=== PATIENT | female | born 1950 | race Hispanic/Latino ===

== ENCOUNTER 2017-09-04 02:19 | Observation (INO) | payer OTHER ==
--- OUTSIDE RECORDS SUMMARY | 2017-09-04 02:21 | XMS REPORT | Clinical Summary ---
:1950 Author Organization [facility] Address [address] [place] [address] Care Team Providers Name Role Phone Asked, No Pcp Primary Care Provider Unavailable Allergies Active Allergy Reactions Severity Noted Date Comments Sulfamethoxazole-Trimethoprim Palpitations Low 10/28/2015 Ciprofloxacin Other (See Comments) 02/12/2016 Bleeding Codeine Itching 02/12/2016 Chest pain Morphine Sulfate Itching 09/07/2012 Current Medications Prescription Sig. Disp. Refills Start Date End Date Status cetirizine (ZyrTEC) 10 Take 10 mg by Active MG tablet mouth nightly. inFLIXimab (REMICADE) Infuse 600 mg 03/29/2013 Active 100 mg injection into a venous catheter. losartan (COZAAR) 25 Take 25 mg by Active MG tablet mouth daily. metFORMIN (GLUCOPHAGE) Take 500 mg by Active 500 MG tablet mouth 2 (two) times a day with meals. ranitidine (ZANTAC) 75 Take 75 mg by Active MG tablet mouth. zolpidem (AMBIEN) 10 Take 10 mg by Active mg tablet mouth. ALPRAZolam (XANAX) 0.5 Take 0.5 mg by 0 01/06/2016 Active MG tablet mouth every 8 (eight) hours as needed. for anxiety gabapentin (NEURONTIN) TAKE ONE 1 01/23/2016 Active 100 MG capsule CAPSULE BY MOUTH 3 TIMES A DAY STOP LYRICA hyoscyamine Take 125 mcg 5 01/20/2016 Active (ANASPAZ,LEVSIN) 0.125 by mouth 3 mg tablet (three) times a day. metoclopramide Take 10 mg by 3 01/01/2016 Active (REGLAN) 10 MG tablet mouth 4 (four) times a day. modafinil (PROVIGIL) Take 200 mg by 0 01/14/2016 Active 200 MG tablet mouth every morning. omeprazole (PriLOSEC) Take 40 mg by 3 11/06/2015 Active 40 MG capsule mouth once daily. ondansetron (ZOFRAN) 4 TAKE 1 TABLET 1 01/11/2016 Active MG tablet BY MOUTH EVERY 8 HOURS NEEDED FOR NAUSEA/VOMIT potassium chloride Take 20 mEq by 1 11/06/2015 Active (K-DUR) 20 MEQ CR mouth once tablet daily. SUMAtriptan (IMITREX) TK 1 T PO QD 3 01/23/2016 Active 100 MG tablet PRN. escitalopram (LEXAPRO) Take 40 mg by Active 20 MG tablet mouth daily. furosemide (LASIX) 40 Take 40 mg by 0 07/29/2016 Active mg tablet mouth daily. 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, lumbar region Autoimmune hepatitis Rheumatoid arthritis of multiple sites without rheumatoid factor Anxiety and depression GERD (gastroesophageal reflux disease) Encounters Date Type Specialty Care Team Description 06/01/2017 Orders Only Rheumatology Tamara Salinas MA 04/29/2017 Telephone Rheumatology Cristopher Bettencourt MD 03/24/2017 Orders Only Rheumatology Tamara Salinas MA 12/13/2016 Telephone Rheumatology Tamara Salinas MA after 09/03/2016 Family History Relation Name Status Comments Father Mother Social History Tobacco Use Types Packs/Day Years Used Date Never Smoker Smokeless Tobacco: Never Used Alcohol Use Drinks/Week oz/Week Comments No Sex Assigned at Date Recorded Not on file Last Filed Vital Signs Not on file Plan of Treatment Date Type Specialty Care Team Description 09/06/2017 Office Visit Rheumatology Cristopher Bettencourt MD [address] [facility] [address] [place] [id number] Health Maintenance Due Date Last Done Comments FOOT EXAM 11/24/1961 OPHTHALMOLOGY EXAM 11/24/1961 PAP SMEAR 11/24/1972 COLONOSCOPY 11/24/2001 MAMMOGRAM 11/24/2001 SHINGRIX VACCINE (#1) 11/24/2001 ZOSTER VACCINE 2011 PNEUMOCOCCAL POLYSACCHARIDE VACCINE AGE 65 AND OVER 11/24/2016 PNEUMOCOCCAL-13 11/24/2016 INFLUENZA VACCINE 11/23/2017 Results Not on fileafter 09/03/2016 Insurance Payer Benefit Plan / Group Subscriber ID Type Phone Address A[employer]NA MEDICARE AETNA MEDICARE HMO/O [facility] xxxxxxxx HMO Home: [address] [phone] [address]
--- OUTSIDE RECORDS SUMMARY | 2017-09-04 02:21 | XMS REPORT ---
:1950 [facility] Address [facility] [address] [place] [address] Care Team Providers Name Role Phone SIVA CAPPS Unavailable Unavailable SPRING JOSHI Unavailable Unavailable Problems This patient has no known problems. Allergies, Adverse Reactions, Alerts This patient has no known allergies or adverse reactions. Medications This patient has no known medications. Results Test Description Test Time Test Comments Text Results Atomic Results Result Comments COMPREHENSIVE METABOLIC PANEL 2017-06-10 12:54:00 Test Item Value Reference Range Comments TOTAL PROTEIN (BEAKER) (test 8.0 gm/dL 6.0-8.3 Specimen moderately koqt=806) hemolyzed ALBUMIN (BEAKER) (test 3.7 g/dL 3.5-5.0 Specimen moderately ynrq=3879) hemolyzed ALKALINE PHOSPHATASE 77 U/L 40-150 (BEAKER) (test pwao=537) BILIRUBIN TOTAL (BEAKER) 0.4 mg/dL 0.2-1.2 Specimen moderately (test ltaf=317) hemolyzed SODIUM (BEAKER) (test 130 meq/L 136-145 lykm=353) POTASSIUM (BEAKER) (test 4.2 meq/L 3.5-5.1 Specimen moderately ljub=985) hemolyzed CHLORIDE (BEAKER) (test 96 meq/L 98-107 zmdo=061) CO2 (BEAKER) (test pjco=263) 24 meq/L 22-29 BLOOD UREA NITROGEN (BEAKER) 6 mg/dL 7-21 (test bycb=766) CREATININE (BEAKER) (test 0.67 mg/dL 0.57-1.25 Specimen moderately sxuo=293) hemolyzed GLUCOSE RANDOM (BEAKER) 152 mg/dL 70-105 (test qxwl=457) CALCIUM (BEAKER) (test 9.0 mg/dL 8.4-10.2 wiea=881) AST (SGOT) (BEAKER) (test 44 U/L 5-34 Specimen moderately uvau=462) hemolyzed ALT (SGPT) (BEAKER) (test 27 U/L 6-55 Specimen moderately txdt=408) hemolyzed EGFR (BEAKER) (test 88 mL/min/1.73 sq m ESTIMATED GFR IS NOT zdqj=0747) ACCURATE CREATININE CLEARANCE IN PREDICTING GLOMERULAR FILTRATION RATE. ESTIMATED GFR IS NOT APPLICABLE FOR DIALYSIS PATIENTS. CBC W/PLT COUNT & AUTO [id number] 12:23:00 Test Item Value Reference Range Comments WHITE BLOOD CELL COUNT (BEAKER) (test mznw=936) 3.4 K/ L 3.5-10.5 RED BLOOD CELL COUNT (BEAKER) (test vjuw=892) 4.14 M/ L 3.93-5.22 HEMOGLOBIN (BEAKER) (test ylyf=831) 11.8 GM/DL 11.2-15.7 HEMATOCRIT (BEAKER) (test qegs=281) 36.8 % 34.1-44.9 MEAN CORPUSCULAR VOLUME (BEAKER) (test ehjq=027) 88.9 fL 79.4-94.8 MEAN CORPUSCULAR HEMOGLOBIN (BEAKER) (test 28.5 pg 25.6-32.2 vnvv=198) MEAN CORPUSCULAR HEMOGLOBIN CONC (BEAKER) (test 32.1 GM/DL 32.2-35.5 rroe=634) RED CELL DISTRIBUTION WIDTH (BEAKER) (test 15.5 % 11.7-14.4 dqkt=466) PLATELET COUNT (BEAKER) (test ziws=190) 303 K/CU MM 150-450 MEAN PLATELET VOLUME (BEAKER) (test nnlo=106) 10.5 fL 9.4-12.3 NUCLEATED RED BLOOD CELLS (BEAKER) (test 0 /100 WBC 0-0 crbm=574) NEUTROPHILS RELATIVE PERCENT (BEAKER) (test 59 % tnha=863) LYMPHOCYTES RELATIVE PERCENT (BEAKER) (test 22 % bjou=264) MONOCYTES RELATIVE PERCENT (BEAKER) (test 16 % jibb=794) EOSINOPHILS RELATIVE PERCENT (BEAKER) (test 2 % lnyh=362) BASOPHILS RELATIVE PERCENT (BEAKER) (test 1 % ylwy=066) NEUTROPHILS ABSOLUTE COUNT (BEAKER) (test 2.02 K/ L 1.56-6.13 rhsk=783) LYMPHOCYTES ABSOLUTE COUNT (BEAKER) (test 0.73 K/ L 1.18-3.74 zund=443) MONOCYTES ABSOLUTE COUNT (BEAKER) (test 0.53 K/ L 0.24-0.36 bcwn=090) EOSINOPHILS ABSOLUTE COUNT (BEAKER) (test 0.07 K/ L 0.04-0.36 uhoj=133) BASOPHILS ABSOLUTE COUNT (BEAKER) (test 0.04 K/ L 0.01-0.08 vrci=807) IMMATURE GRANULOCYTES-RELATIVE PERCENT (BEAKER) 0 % 0-1 (test oesz=0866) SEDIMENTATION [id number] 15:52:00 Test Item Value Reference Range Comments SEDIMENTATION RATE, ERYTHROCYTE (BEAKER) (test 48 mm/HR 0-30 mryp=935) COMPREHENSIVE METABOLIC [id number] 14:48:00 Test Item Value Reference Range Comments TOTAL PROTEIN (BEAKER) 8.3 gm/dL 6.0-8.3 (test znka=593) ALBUMIN (BEAKER) (test 4.0 g/dL 3.5-5.0 dyyu=0202) ALKALINE PHOSPHATASE 71 U/L 40-150 (BEAKER) (test uvdw=031) BILIRUBIN TOTAL (BEAKER) 0.5 mg/dL 0.2-1.2 (test izml=359) SODIUM (BEAKER) (test 133 meq/L 136-145 alzs=444) POTASSIUM (BEAKER) (test 3.4 meq/L 3.5-5.1 rstw=666) CHLORIDE (BEAKER) (test 95 meq/L 98-107 rxmr=655) CO2 (BEAKER) (test 26 meq/L 22-29 bjau=293) BLOOD UREA NITROGEN 5 mg/dL 7-21 (BEAKER) (test sdaq=236) CREATININE (BEAKER) (test 0.65 mg/dL 0.57-1.25 kizj=781) GLUCOSE RANDOM (BEAKER) 130 mg/dL 70-105 (test wtzh=946) CALCIUM (BEAKER) (test 9.5 mg/dL 8.4-10.2 yawb=266) AST (SGOT) (BEAKER) (test 31 U/L 5-34 gncg=303) ALT (SGPT) (BEAKER) (test 22 U/L 6-55 uajz=395) EGFR (BEAKER) (test 92 mL/min/1.73 sq m ESTIMATED GFR IS NOT gdyx=3277) ACCURATE CREATININE CLEARANCE IN PREDICTING GLOMERULAR FILTRATION RATE. ESTIMATED GFR IS NOT APPLICABLE FOR DIALYSIS PATIENTS. CBC W/PLT COUNT & AUTO [id number] 14:36:00 Test Item Value Reference Range Comments WHITE BLOOD CELL COUNT (BEAKER) (test fbfg=513) 6.3 K/ L 4.0-10.0 RED BLOOD CELL COUNT (BEAKER) (test guvz=610) 4.13 M/ L 4.00-5.00 HEMOGLOBIN (BEAKER) (test fikz=239) 13.4 GM/DL 12.0-15.0 HEMATOCRIT (BEAKER) (test yvfx=275) 38.5 % 36.0-45.0 MEAN CORPUSCULAR VOLUME (BEAKER) (test wihg=965) 93.4 fL 82.0-99.0 MEAN CORPUSCULAR HEMOGLOBIN (BEAKER) (test 32.4 pg 27.0-33.0 bupa=607) MEAN CORPUSCULAR HEMOGLOBIN CONC (BEAKER) (test 34.7 GM/DL 32.0-36.0 hfdi=275) RED CELL DISTRIBUTION WIDTH (BEAKER) (test 12.4 % 10.3-14.2 poja=739) PLATELET COUNT (BEAKER) (test ruec=233) 279 K/CU MM 150-430 MEAN PLATELET VOLUME (BEAKER) (test vemw=490) 7.9 fL 6.5-10.5 NUCLEATED RED BLOOD CELLS (BEAKER) (test 0 /100 WBC 0-0 nblw=378) NEUTROPHILS RELATIVE PERCENT (BEAKER) (test 53 % dokv=508) LYMPHOCYTES RELATIVE PERCENT (BEAKER) (test 25 % wpto=071) MONOCYTES RELATIVE PERCENT (BEAKER) (test 17 % acfh=833) EOSINOPHILS RELATIVE PERCENT (BEAKER) (test 4 % fjio=346) BASOPHILS RELATIVE PERCENT (BEAKER) (test 1 % qfrn=768) NEUTROPHILS ABSOLUTE COUNT (BEAKER) (test 3.36 K/ L 1.80-8.00 logc=675) LYMPHOCYTES ABSOLUTE COUNT (BEAKER) (test 1.59 K/ L 1.48-4.50 gava=859) MONOCYTES ABSOLUTE COUNT (BEAKER) (test 1.07 K/ L 0.00-1.30 gyec=948) EOSINOPHILS ABSOLUTE COUNT (BEAKER) (test 0.24 K/ L 0.00-0.50 zrwz=071) BASOPHILS ABSOLUTE COUNT (BEAKER) (test 0.04 K/ L 0.00-0.20 iqjs=229) 0.00
--- OUTSIDE RECORDS SUMMARY | 2017-09-04 02:21 | XMS REPORT | Clinical Summary ---
:1950 Author Organization [facility] Address [address] [place] [address] Phone Care Team Providers Name Role Phone Unavailable Primary Care Provider Unavailable Allergies Active Allergy Reactions Severity Noted Date Comments Sulfamethoxazole-Trimethoprim Other (See Comments) 09/07/2012 Shaking Ciprofloxacin Other (See Comments) 09/07/2012 Bleeding Codeine Other (See Comments) 09/07/2012 Chest pain Morphine Sulfate Itching 09/07/2012 Current Medications Prescription Sig. Disp. Refills Start Date End Date Status escitalopram (LEXAPRO) Take 40 mg by mouth Active 20 MG tablet daily. ARIPiprazole (ABILIFY) Take 2 mg by mouth Active 2 MG tablet daily. zolpidem (AMBIEN) 10 mg Take 10 mg by mouth Active tablet every night as needed. azaTHIOprine (IMURAN) Take 100 mg by mouth Active 50 mg tablet continuous prn. buPROPion (WELLBUTRIN) Take 100 mg by mouth Active 100 MG daily. tabletIndications: Rheumatoid arthritis cetirizine (ZYRTEC) 10 Take 10 mg by mouth Active MG tablet daily. Pt unsure of dosage ranitidine (ZANTAC) 75 Take 75 mg by mouth Active MG tablet nightly. Pt unsure of dosage sotalol AF (BETAPACE Take 80 mg by mouth 2 Active AF) 80 MG (two) times daily. tabletIndications: Rheumatoid arthritis(714.0) losartan (COZAAR) 25 MG Take 25 mg by mouth Active tablet daily. metFORMIN (GLUCOPHAGE) Take 500 mg by mouth Active 500 MG tablet 2 (two) times daily with breakfast and dinner. ALPRAZolam (XANAX) 0.5 Take 0.5 mg by mouth. 01/06/2016 Active MG tablet vortioxetine Take 5 mg by mouth Active (TRINTELLIX) 5 mg Tab daily Will increase to 10 mg after 7 days. . gabapentin (NEURONTIN) Take 100 mg by mouth Active 100 MG capsule 3 (three) times daily. Hospital, Clinic, or Ordered Dose Route Frequency Start Date End Date Status Other Facility Administered Medication inFLIXimab (REMICADE) 600 MG IV Once 03/29/2013 Active 600 mg in sodium chloride 0.9% (NS) 250 mL IVPBIndications: Rheumatoid arthritis sodium chloride 0.9% IV Once 01/17/2015 Active (NS) infusion sodium chloride 0.9% IV Once 09/19/2015 Active (NS) infusion sodium chloride 0.9% IV Once 10/17/2015 Active (NS) infusion diphenhydrAMINE 25 MG Oral Once 11/19/2016 Active (BENADRYL) capsule 25 mg acetaminophen 650 MG Oral Once 11/19/2016 Active (TYLENOL) tablet 650 mg inFLIXimab (REMICADE) 600 MG IV Once 04/01/2017 Active 600 mg in sodium chloride 0.9% (NS) EXCEL 250 mL IVPB inFLIXimab (REMICADE) 600 MG IV Once 05/13/2017 Active 600 mg in sodium chloride 0.9% (NS) EXCEL 250 mL IVPB diphenhydrAMINE 25 MG Oral Once 03/29/2013 11/19/2016 Ended (BENADRYL) capsule 25 mgIndications: Rheumatoid arthritis acetaminophen 650 MG Oral Once 03/29/2013 11/19/2016 Ended (TYLENOL) tablet 650 mgIndications: Rheumatoid arthritis sodium chloride 0.9% IV Once 09/24/2016 09/24/2016 Ended (NS) infusion diphenhydrAMINE 25 MG Oral Once 09/24/2016 09/24/2016 Ended (BENADRYL) capsule 25 mg acetaminophen 650 MG Oral Once 09/24/2016 09/24/2016 Ended (TYLENOL) tablet 650 mg ondansetron (ZOFRAN) 4 8 MG IV Once 09/24/2016 09/24/2016 Ended mg/2 mL injection 8 mg inFLIXimab (REMICADE) 600 MG IV Once 09/24/2016 09/24/2016 Ended 600 mg in sodium chloride 0.9% (NS) EXCEL 250 mL IVPB sodium chloride 0.9% IV Once 10/22/2016 10/22/2016 Ended (NS) infusion diphenhydrAMINE 25 MG Oral Once 10/22/2016 10/22/2016 Ended (BENADRYL) capsule 25 mg acetaminophen 650 MG Oral Once 10/22/2016 10/22/2016 Ended (TYLENOL) tablet 650 mg inFLIXimab (REMICADE) 600 MG IV Once 10/22/2016 10/22/2016 Ended 600 mg in sodium chloride 0.9% (NS) EXCEL 250 mL IVPB ondansetron (ZOFRAN) 4 8 MG IV Once 10/22/2016 10/22/2016 Ended mg/2 mL injection 8 mg sodium chloride 0.9% IV Once 11/19/2016 11/19/2016 Ended (NS) infusion ondansetron (ZOFRAN) 4 8 MG IV Once 11/19/2016 11/19/2016 Ended mg/2 mL injection 8 mg inFLIXimab (REMICADE) 600 MG IV Once 11/19/2016 11/19/2016 Ended 600 mg in sodium chloride 0.9% (NS) EXCEL 250 mL IVPB sodium chloride 0.9% IV Once 04/15/2017 04/15/2017 Discontinued (NS) infusion diphenhydrAMINE 25 MG Oral Once 04/15/2017 04/15/2017 Ended (BENADRYL) capsule 25 mg acetaminophen 650 MG Oral Once 04/15/2017 04/15/2017 Ended (TYLENOL) tablet 650 mg inFLIXimab (REMICADE) 600 MG IV Once 04/15/2017 04/15/2017 Ended 600 mg in sodium chloride 0.9% (NS) EXCEL 250 mL IVPB ondansetron (ZOFRAN) 4 8 MG IV Once PRN 04/15/2017 04/15/2017 Ended mg/2 mL injection 8 mg sodium chloride 0.9% IV Once 04/15/2017 04/15/2017 Ended (NS) infusion sodium chloride 0.9% IV Once 05/13/2017 05/13/2017 Ended (NS) infusion diphenhydrAMINE 25 MG Oral Once 05/13/2017 05/13/2017 Ended (BENADRYL) capsule 25 mg acetaminophen 650 MG Oral Once 05/13/2017 05/13/2017 Ended (TYLENOL) tablet 650 mg inFLIXimab (REMICADE) 600 MG IV Once 05/13/2017 05/13/2017 Ended 600 mg in sodium chloride 0.9% (NS) EXCEL 250 mL IVPB ondansetron (ZOFRAN) 4 8 MG IV Once PRN 05/13/2017 05/13/2017 Ended mg/2 mL injection 8 mg inFLIXimab (REMICADE) 600 MG IV Once 06/10/2017 06/10/2017 Ended 600 mg in sodium chloride 0.9% (NS) EXCEL 250 mL IVPB sodium chloride 0.9% IV Once 06/10/2017 06/10/2017 Ended (NS) infusion diphenhydrAMINE 25 MG Oral Once 06/10/2017 06/10/2017 Ended (BENADRYL) capsule 25 mg acetaminophen 650 MG Oral Once 06/10/2017 06/10/2017 Ended (TYLENOL) tablet 650 mg ondansetron (ZOFRAN) 4 8 MG IV Once PRN 06/10/2017 06/10/2017 Ended mg/2 mL injection 8 mg inFLIXimab (REMICADE) 600 MG IV Once 07/22/2017 07/22/2017 Ended 600 mg in sodium chloride 0.9% (NS) EXCEL 250 mL IVPB diphenhydrAMINE 25 MG Oral Once 07/22/2017 07/22/2017 Ended (BENADRYL) capsule 25 mg acetaminophen 650 MG Oral Once 07/22/2017 07/22/2017 Ended (TYLENOL) tablet 650 mg ondansetron (ZOFRAN) 4 8 MG IV Once PRN 07/22/2017 07/22/2017 Ended mg/2 mL injection 8 mg sodium chloride 0.9% IV Once 07/22/2017 07/22/2017 Ended (NS) infusion Active Problems Problem Noted Date Rheumatoid arthritis (HCC) 09/28/2012 Encounters Date Type Specialty Care Team Description 07/22/2017 Procedure visit Oncology Antonio Perez Rheumatoid arthritis MD [place] involving right shoulder Cristopher Bettencourt MD with positive rheumatoid Ivelisse Kumar RN factor (HCC) (Primary Dx) 06/10/2017 Procedure visit Oncology Antonio Perez Rheumatoid arthritis MD [place] involving right shoulder Cristopher Bettencourt MD with positive rheumatoid Ivelisse Kumar RN factor (HCC) (Primary Dx) 05/13/2017 Procedure visit Oncology Antonio Perez Arthritis (Primary Dx) MD Sg Briggs Richard A, Ivelisse Multani RN 04/15/2017 Procedure visit Oncology Antonio Perez Arthritis (Primary Dx) MD Sg Briggs Richard A, Ivelisse Multani RN 04/01/2017 Procedure visit Oncology Antonio Perez Canceled (Patient) MD Sg Briggs Richard A, MD 11/19/2016 Procedure visit Oncology Antonio Perez Rheumatoid arthritis MD [place] involving right wrist with Cristopher Bettencourt MD positive rheumatoid factor Ivelisse Kumar RN ([facility]) 10/22/2016 Procedure visit Oncology Antonio Perez Rheumatoid arthritis MD [place] involving right shoulder Cristopher Bettencourt MD with positive rheumatoid Ivelisse Kumar RN factor ([facility]) (Primary Dx) 09/24/2016 Procedure visit Oncology Antonio Perez Rheumatoid arthritis MD [place] involving right wrist with Cristopher Bettencourt MD positive rheumatoid factor Ivelisse Kumar RN ([facility]) (Primary Dx) after 09/03/2016 Social History Tobacco Use Types Packs/Day Years Used Date Never Smoker Smokeless Tobacco: Never Used Alcohol Use Drinks/Week oz/Week Comments No Sex Assigned at Date Recorded Not on file Last Filed Vital Signs Vital Sign Reading Time Taken Blood Pressure 146/72 07/22/2017 1:52 PM CDT Pulse 79 07/22/2017 1:52 PM CDT Temperature 36.9 C (98.4 F) 07/22/2017 1:52 PM CDT Respiratory Rate 20 07/22/2017 1:52 PM CDT Oxygen Saturation 100% 07/22/2017 1:52 PM CDT Inhaled Oxygen Concentration - - Weight 85.2 kg (187 lb 14.4 oz) 05/13/2017 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 Height - - Body Mass Index 30.33 05/13/2017 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 Plan of Treatment Health Maintenance Due Date Last Done Comments INFLUENZA VACCINE 01/23/2018 Results CBC with platelet count + automated diff (06/10/2017 11:21 AM) Component Value Ref Range WBC 3.4 (L) 3.5 - 10.5 K/L RBC 4.14 3.93 - 5.22 M/L Hemoglobin 11.8 11.2 - 15.7 GM/DL Hematocrit 36.8 34.1 - 44.9 % MCV 88.9 79.4 - 94.8 fL MCH 28.5 25.6 - 32.2 pg MCHC 32.1 (L) 32.2 - 35.5 GM/DL RDW 15.5 (H) 11.7 - 14.4 % Platelets 303 150 - 450 K/CU MM MPV 10.5 9.4 - 12.3 fL nRBC 0 0 - 0 /100 WBC % Neutros 59 % % Lymphs 22 % % Monos 16 % % Eos 2 % % Baso 1 % # Neutros 2.02 1.56 - 6.13 K/L # Lymphs 0.73 (L) 1.18 - 3.74 K/L # Monos 0.53 (H) 0.24 - 0.36 K/L # Eos 0.07 0.04 - 0.36 K/L # Baso 0.04 0.01 - 0.08 K/L Immature Granulocytes-Relative 0 0 - 1 % Specimen Performing Laboratory Blood [address] [address] CBC with platelet count + automated diff (06/10/2017 11:21 AM) Specimen Performing Laboratory Blood [facility] Narrative The following orders were created for panel order CBC with platelet count + automated diff. Procedure Abnormality Status --------- ------ CBC with platelet count ...[[id number]]AbnormalFinal result Please view results for these tests on the individual orders. Comprehensive metabolic panel (06/10/2017 11:21 AM) Component Value Ref Range Protein, Total 8.0Comment: Specimen moderately hemolyzed 6.0 - 8.3 gm/dL Albumin 3.7Comment: Specimen moderately hemolyzed 3.5 - 5.0 g/dL Alkaline Phosphatase 77 40 - 150 U/L Total Bilirubin 0.4Comment: Specimen moderately hemolyzed 0.2 - 1.2 mg/dL Sodium 130 (L) 136 - 145 meq/L Potassium 4.2Comment: Specimen moderately hemolyzed 3.5 - 5.1 meq/L Chloride 96 (L) 98 - 107 meq/L CO2 24 22 - 29 meq/L BUN 6 (L) 7 - 21 mg/dL Creatinine 0.67Comment: Specimen moderately hemolyzed 0.57 - 1.25 mg/dL Glucose 152 (H) 70 - 105 mg/dL Calcium 9.0 8.4 - 10.2 mg/dL AST 44 (H)Comment: Specimen moderately hemolyzed 5 - 34 U/L ALT 27Comment: Specimen moderately hemolyzed 6 - 55 U/L EGFR 88Comment: ESTIMATED GFR IS NOT ACCURATE mL/min/1.73 sq m CREATININE CLEARANCE IN PREDICTING GLOMERULAR FILTRATION RATE. ESTIMATED GFR IS NOT APPLICABLE FOR DIALYSIS PATIENTS. Specimen Performing Laboratory Blood [facility] [address] [address] after 09/03/2016
[2017-09-04] MEDS ORDERED: ACETAMINOPHEN 500 MG TAB ONE ×2 (03:00→09:15)
[2017-09-04] MEDS ORDERED: CEFTRIAXONE/SWI 1gm 1 GM/10 ML SYR ONE (03:00)
[2017-09-04] MEDS ORDERED: NA CHLORIDE 0.9% 2,000 ML ONE (03:06)
[2017-09-04 03:46] LABS: Absolute Lymphocytes (CBC) 0.3 K/uL (0.7-4.9); Absolute Monocytes 1.9 K/uL (0.1-1.3); Absolute Neutrophil 12.1 K/uL (1.8-8.0); Basophils % 0.3 % (0-1.3); Hematocrit 34.9 % (36.0-45.0); Lymphocytes % 2.4 % (15.3-44.8); MCH 29.1 pg (27.0-35.0); MCV 86.7 fL (80-100); MPV 8.7 fL (7.6-11.3); Monocytes % 13.2 % (3.3-12.3); RBC Red Blood Cell Count 4.02 M/uL (3.86-4.86)
[2017-09-04 03:49] LABS: Protime INR 1.13
[2017-09-04 04:04] LABS: Urine Blood 3+ (NEG); Urine Glucose NEGATIVE (NEG); Urine Protein 3+ (NEG)
[2017-09-04 04:06] LABS: Potassium 3.5 mEq/L (3.6-5.0)
[2017-09-04 04:10] LABS: CKMB Creatine Kinase MB 1.3 ng/ml (0.3-4.0)
[2017-09-04 04:12] LABS: Albumin 3.1 g/dL (3.2-5.5); Bilirubin Direct 0.3 mg/dL (0-0.2); Bilirubin Total 0.9 mg/dL (0.3-1.2); Protein, Total 7.5 g/dL (6.0-8.3)
[2017-09-04 04:41] LABS: Urine Bacteria 20-50 /HPF (<20)
[2017-09-04 04:42] LABS: Urine Culture Reflex Order NOT NEEDED
[2017-09-04 04:48] LABS: C-Reactive Protein 248.3 mg/L (<10.0)
--- NOTE | 2017-09-04 04:59 | EDPHYS ---
Physician Documentation [facility] Name: Linda Miramontes Age: 66 yrs Sex: Female : 1950 Arrival Date: 09/04/2017 Time: 02:21 Bed 14 Private MD: ED Physician Wilson Randall HPI: 09/04 02:49 This 66 yrs old Female presents to ER via EMS with complaints of Fever, ma2 Nausea/Vomiting. 02:49 The patient reports fever, that was measured at 101 degrees Fahrenheit. Onset: The ma2 symptoms/episode began/occurred gradually, 4 day(s) ago. Associated signs and symptoms: Pertinent positives: altered mental status,\E\ hematuria . Severity of symptoms: At their worst the symptoms were moderate severe in the emergency department the symptoms are unchanged. The patient has experienced similar episodes in the past. hematuria, dysuria, ws confused today, has been taking nitrofurantoin x 2 days, . Historical: - Allergies: 02:31 No Known Allergies; ao - Home Meds: 02:31 Amoxicillin Oral [Active]; ao - PMHx: 02:31 Hepatitis; ao - PSHx: 02:31 None; ao - Immunization history:: Adult Immunizations unknown. - Social history:: Smoking status: Patient/guardian denies using tobacco, Patient/guardian denies using alcohol, street drugs, Patient/guardian denies using The patient lives with family. - Family history:: not pertinent. ROS: 02:49 Abdomen/GI: Negative for abdominal pain, nausea, diarrhea, and constipation, ma2 MS/Extremity: Negative for injury and deformity, Skin: Negative for injury, rash, and discoloration. 02:49 Constitutional: Positive for body aches, fatigue, fever, malaise. 02:49 : Positive for urinary symptoms, hematuria. 02:49 All other systems are negative. Exam: 02:49 ENT: Nares patent. No nasal discharge, no septal abnormalities noted. Tympanic ma2 membranes are normal and external auditory canals are clear. Oropharynx with no redness, swelling, or masses, exudates, or evidence of obstruction, uvula midline. Mucous membranes moist. Neck: Trachea midline, no thyromegaly or masses palpated, and no cervical lymphadenopathy. Supple, full range of motion without nuchal rigidity, or vertebral point tenderness. No Meningismus. Chest/axilla: Normal chest wall appearance and motion. Nontender with no deformity. No lesions are appreciated. Cardiovascular: Regular rate and rhythm with a normal S1 and S2. No gallops, murmurs, or rubs. Normal PMI, no JVD. No pulse deficits. Respiratory: Lungs have equal breath sounds bilaterally, clear to auscultation and percussion. No rales, rhonchi or wheezes noted. No increased work of breathing, no retractions or nasal flaring. Abdomen/GI: Soft, non-tender, with normal bowel sounds. No distension or tympany. No guarding or rebound. No evidence of tenderness throughout. Neuro: Awake and alert, GCS 15, oriented to person, place, time, and situation. Cranial nerves II-XII grossly intact. Motor strength 5/5 in all extremities. Sensory grossly intact. Cerebellar exam normal. Normal gait. 02:49 Constitutional: The patient appears febrile, obviously ill. Vital Signs: 02:29 BP 133 / 53; Pulse 93; Resp 18; Temp 101.7(O); Pulse Ox 96% on R/A; Weight 81.65 kg ao (R); Height 5 ft. 7 in. (170.18 cm) (R); Pain 4/10; 03:30 BP 131 / 67; Pulse 79; Resp 16; Pulse Ox 96% ; bp 04:45 BP 135 / 64; Pulse 75; Resp 14; Temp 100.0; Pulse Ox 95% ; bp 06:30 BP 118 / 62; Pulse 72; Resp 16; Pulse Ox 98% ; bp 08:00 BP 121 / 67; Pulse 74; Resp 16 S; Temp 98.0(O); Pulse Ox 97% on R/A; iw 02:29 Body Mass Index 28.19 (81.65 kg, 170.18 cm) ao MDM: 02:32 Patient medically screened. ma2 02:49 Differential diagnosis: bacterial infection, bronchitis, pneumonia UTI, pyelonephritis. ma2 04:42 Data reviewed: vital signs, nurses notes, lab test result(s), dehydration hyponatremia ma2 UTI sepsis . 05:13 Sepsis 6 hour Focused Exam: Focused assessment performed: September 04, 2017 at 05:13 Heart: ma2 Regular rate/rhythm. Lungs: Capillary refill examination performed. Capillary refill noted to be brisk. Skin examination performed. Skin noted to be pink. Neuro: Patient's neurological exam has improved from previous exam. Respiratory: Respiratory exam improved from previous exam. Counseling: I had a detailed discussion with the patient and/or guardian regarding: the historical points, exam findings, and any diagnostic results supporting the discharge/admit diagnosis, the presence of at least one elevated blood pressure reading (>120/80) during this emergency department visit, the need for further work-up and treatment in the hospital. Response to treatment: the patient's symptoms have markedly improved after treatment. 06:54 Other consultation: discussed with Dr. Teixeira. 09/04 02:55 Order name: Amylase, Serum; Complete Time: 06:47 09/04 02:55 Order name: Basic Metabolic Panel; Complete Time: 06:47 09/04 02:55 Order name: Blood Culture Adult (2) 09/04 02:55 Order name: BNP; Complete Time: 04:42 09/04 02:55 Order name: C-Reactive Protein; Complete Time: 06:47 09/04 02:55 Order name: CBC with Diff; Complete Time: 04:42 09/04 02:55 Order name: Ckmb; Complete Time: 06:47 09/04 02:55 Order name: CPK; Complete Time: 06:47 09/04 02:55 Order name: Lactate; Complete Time: 04:00 09/04 02:55 Order name: LFT's; Complete Time: 06:47 09/04 02:55 Order name: Lipase; Complete Time: 06:47 09/04 02:55 Order name: Procalcitonin; Complete Time: 06:47 09/04 02:55 Order name: Protime (+inr); Complete Time: 04:00 09/04 02:55 Order name: Ptt, Activated; Complete Time: 04:00 09/04 02:55 Order name: Sed Rate; Complete Time: 04:42 09/04 02:55 Order name: Troponin (emerg Dept Use Only); Complete Time: 04:42 09/04 02:55 Order name: Accucheck; Complete Time: 03:20 09/04 02:55 Order name: Cardiac monitoring; Complete Time: 03:20 ma2 09/04 02:55 Order name: EKG - Nurse/Tech; Complete Time: 03:20 ma2 09/04 02:55 Order name: IV Saline Lock - Large Bore; Complete Time: 03:20 ma2 09/04 02:55 Order name: Labs collected and sent; Complete Time: 03:20 ma2 09/04 02:55 Order name: O2 Per Protocol; Complete Time: 03:03 ma2 09/04 03:19 Order name: Urine Culture bp 09/04 03:19 Order name: Urine Microscopic Only; Complete Time: 06:47 bp 09/04 03:43 Order name: Urine Dipstick--Ancillary (enter results); Complete Time: 04:42 rg2 09/04 08:13 Order name: Basic Metabolic Panel EDMS 09/04 08:22 Order name: CBC with Automated Diff EDMS 09/04 02:55 Order name: O2 Sat Monitoring; Complete Time: 03:03 ma2 09/04 02:55 Order name: Urine Dipstick-Ancillary (obtain specimen); Complete Time: 03:20 ma2 Administered Medications: 03:15 Drug: NS 0.9% (30 ml/kg) 30 ml/kg Route: IV; Rate: bolus; Site: left forearm; bp 06:38 Follow up: IV Status: Completed infusion bp 03:30 Drug: Tylenol 1000 mg Route: PO; bp 04:54 Follow up: Response: Temperature is decreased bp 03:36 Drug: Rocephin 1 grams Route: IV; Rate: bolus; Site: left forearm; bp 06:38 Follow up: IV Status: Completed infusion bp Point of Care Testing: Blood Glucose: 03:21 Blood Glucose: 162 mg/dL; bp Ranges: Critical Glucose Levels:Adult <50 mg/dl or >400 mg/dl <40 mg/dl or >180 mg/dl Disposition: 09/04/17 04:59 Hospitalization ordered by Kristian Torres for Inpatient Admission. Preliminary diagnosis are Severe sepsis without septic shock, Dehydration, Hypo-osmolality and hyponatremia, Urinary tract infection, site not specified. - Bed requested for Telemetry/MedSurg (Inpatient). - Status is Inpatient Admission. sg - Condition is Guarded. - Problem is new. - Symptoms have improved. UTI on Admission? No Signatures: Dispatcher [employer] EDMS Hudson Cohn RN RN sg Garcia, Cindy RN ASHWIN cg Jaleel Riley RN Ramón Warner RN Wilson Anderson MD MD ma2 Corrections: (The following items were deleted from the chart) 05:03 04:59 Hospitalization Ordered by Kristian Torres MD for Inpatient Admission. Preliminary ma2 diagnosis is Severe sepsis without septic shock. Bed requested for Telemetry/MedSurg (Inpatient). Status is Inpatient Admission. Condition is Guarded. Problem is new. Symptoms have improved. UTI on Admission? No. ma2 05:13 05:03 09/04/2017 04:59 Hospitalization Ordered by Kristian Torres MD for Inpatient cg Admission. Preliminary diagnosis is Severe sepsis without septic shock; Dehydration; Hypo-osmolality and hyponatremia; Urinary tract infection, site not specified. Bed requested for Telemetry/MedSurg (Inpatient). Status is Inpatient Admission. Condition is Guarded. Problem is new. Symptoms have improved. UTI on Admission? No. ma2 09:20 05:13 09/04/2017 04:59 Hospitalization Ordered by Kristian Torres MD for Inpatient sg Admission. Preliminary diagnosis is Severe sepsis without septic shock; Dehydration; Hypo-osmolality and hyponatremia; Urinary tract infection, site not specified. Bed requested for Telemetry/MedSurg (Inpatient). Status is Inpatient Admission. Condition is Guarded. Problem is new. Symptoms have improved. UTI on Admission? No. cg
--- NOTE | 2017-09-04 04:59 | ER ---
Nurse's Notes [facility] Name: Linda Miramontes Age: 66 yrs Sex: Female : 1950 Arrival Date: 09/04/2017 Time: 02:21 Bed 14 Private MD: Diagnosis: Severe sepsis without septic shock;Dehydration;Hypo-osmolality and hyponatremia;Urinary tract infection, site not specified Presentation: 09/04 02:26 Presenting complaint: Patient states: "I when to my dentist and was prescribed ao amoxicillin. I started vomiting after taking the amoxicillin." Patient also report fever. Transition of care: patient was not received from another setting of care. Onset of symptoms is unknown. Initial Sepsis Screen: Does the patient meet any 2 criteria? No. Patient's initial sepsis screen is negative. Does the patient have a suspected source of infection? No. Patient's initial sepsis screen is negative. Care prior to arrival: None. 02:26 Method Of Arrival: EMS: [facility] ao 02:26 Acuity: JOBY 3 ao Triage Assessment: 02:33 General: Appears in no apparent distress. uncomfortable. GI: Reports nausea, vomiting. ao Historical: - Allergies: 02:31 No Known Allergies; ao - Home Meds: 02:31 Amoxicillin Oral [Active]; ao - PMHx: 02:31 Hepatitis; ao - PSHx: 02:31 None; ao - Immunization history:: Adult Immunizations unknown. - Social history:: Smoking status: Patient/guardian denies using tobacco, Patient/guardian denies using alcohol, street drugs, Patient/guardian denies using The patient lives with family. - Family history:: not pertinent. Screenin:31 Abuse screen: Denies threats or abuse. Denies injuries from another. Nutritional ao screening: No deficits noted. Tuberculosis screening: No symptoms or risk factors identified. Fall Risk Assessment: 02:32 General: Appears in no apparent distress. uncomfortable, Behavior is cooperative, ao anxious. Pain: Complains of pain in abdomen. Neuro: Level of Consciousness is awake, alert, obeys commands, Oriented to person, place, time, situation, Appropriate for age Moves all extremities. Full function Speech is normal. Cardiovascular: Capillary refill < 3 seconds Patient's skin is warm and dry. Respiratory: Airway is patent Respiratory effort is even, unlabored, Respiratory pattern is regular, symmetrical. GI: Abdomen is obese. : No signs and/or symptoms were reported regarding the genitourinary system. EENT: No signs and/or symptoms were reported regarding the EENT system. Derm: No signs and/or symptoms reported regarding the dermatologic system. Musculoskeletal: No signs and/or symptoms reported regarding the musculoskeletal system. 03:30 Reassessment: ALL CURRENT ORDERS COMPLETED, RESULTS PENDING. PT RESTING QUIETLY, VS bp STABLE ON MONITOR. 04:55 Reassessment: EVALUATION PROCEEDING, IVF INFUSING, TEMPERATURE IMPROVED. NO S/S ACUTE bp DISTRESS AT THIS TIME. 06:00 Reassessment: ADMIT IN PROCESS, ADMIT ORDERS PENDING. VS STABLE ON MONITOR. bp Vital Signs: 02:29 BP 133 / 53; Pulse 93; Resp 18; Temp 101.7(O); Pulse Ox 96% on R/A; Weight 81.65 kg ao (R); Height 5 ft. 7 in. (170.18 cm) (R); Pain 4/10; 03:30 BP 131 / 67; Pulse 79; Resp 16; Pulse Ox 96% ; bp 04:45 BP 135 / 64; Pulse 75; Resp 14; Temp 100.0; Pulse Ox 95% ; bp 06:30 BP 118 / 62; Pulse 72; Resp 16; Pulse Ox 98% ; bp 08:00 BP 121 / 67; Pulse 74; Resp 16 S; Temp 98.0(O); Pulse Ox 97% on R/A; iw 02:29 Body Mass Index 28.19 (81.65 kg, 170.18 cm) ao ED Course: 02:21 Patient arrived in ED. ds1 02:21 Ramón Gallego, ASHWIN is Primary Nurse. bp 02:29 Triage completed. ao 02:30 Arm band placed on right wrist. Patient placed in an exam room, on a stretcher, on ao pulse oximetry, Patient notified of wait time. 02:32 Wilson Randall MD is Attending Physician. ma2 02:33 Patient has correct armband on for positive identification. Pulse ox on. NIBP on. ao 03:20 Berry cath inserted, using sterile technique, 16 Fr., by cash applications analyst, balloon inflated, to bp gravity drainage, urine specimen collected. returned rinku urine. Patient tolerated well. Inserted saline lock: 22 gauge in left forearm, using aseptic technique. Blood collected. 03:25 EKG done, by ED staff, reviewed by Wilson Randall MD. eb 04:56 Kristian Torres MD is Hospitalizing Provider. ma2 06:36 No provider procedures requiring assistance completed. Patient admitted, IV remains in bp place. 07:35 Missed attempt(s): 22 gauge in right antecubital area. by Eyad Fuentes LVN. Bleeding iw controlled, band aid applied, catheter tip intact. 07:40 Missed attempt(s): 24 gauge in left forearm. Bleeding controlled, band aid applied, iw catheter tip intact. 07:50 Inserted saline lock: 20 gauge in right EJ, using aseptic technique. Blood collected. iw IV inserted by Dr. Castillo. Administered Medications: 03:15 Drug: NS 0.9% (30 ml/kg) 30 ml/kg Route: IV; Rate: bolus; Site: left forearm; bp 06:38 Follow up: IV Status: Completed infusion bp 03:30 Drug: Tylenol 1000 mg Route: PO; bp 04:54 Follow up: Response: Temperature is decreased bp 03:36 Drug: Rocephin 1 grams Route: IV; Rate: bolus; Site: left forearm; bp 06:38 Follow up: IV Status: Completed infusion bp Point of Care Testing: Blood Glucose: 03:21 Blood Glucose: 162 mg/dL; bp Ranges: Outcome: 04:59 Decision to Hospitalize by Provider. ma2 09:10 Admitted to Med/surg accompanied by tech, via stretcher, room 213, with chart, Report em called to ASHWIN Bro 09:10 Condition: good 09:10 Instructed on the need for admit, Demonstrated understanding of instructions. 09:20 Patient left the ED. sg Signatures: Hudson Cohn RN Eyad Vance LVN SUCCESS COACH Mounika Ambriz1 Mandy Velarde RN RN iw Jaleel Riley RN RN ao Peltier, Brian, RN RN bp Alzahri, Mohammad, MD MD ma2 Berenice Martínez
[2017-09-04 07:57] LABS: Absolute Lymphocytes (CBC) 0.5 K/uL (0.7-4.9); Absolute Monocytes 1.7 K/uL (0.1-1.3); Absolute Neutrophil 10.1 K/uL (1.8-8.0); Basophils % 0.5 % (0-1.3); Hematocrit 32.7 % (36.0-45.0); Lymphocytes % 4.4 % (15.3-44.8); MCH 29.6 pg (27.0-35.0); MCV 87.3 fL (80-100); MPV 8.6 fL (7.6-11.3); Monocytes % 13.6 % (3.3-12.3); RBC Red Blood Cell Count 3.74 M/uL (3.86-4.86)
[2017-09-04 08:13] LABS: BUN Blood Urea Nitrogen 8 mg/dL (6-20); Bicarbonate 22 mEq/L (21-31); Glucose Level 127 mg/dL (65-120); Potassium 3.3 mEq/L (3.6-5.0); Sodium Level 131 mEq/L (135-145)
[2017-09-04] MEDS: ACETAMINOPHEN 500 MG TAB PO PRN ×2 (09:19→15:09)
[2017-09-04 09:40] VITALS: BMI 28.1
[2017-09-04 11:14] LABS: Urine Appearance CLOUDY; Urine Bilirubin NEGATIVE (NEG); Urine Blood 1+ (NEG); Urine Color YELLOW; Urine Glucose NEGATIVE (NEG); Urine Protein 1+ (NEG); Urine Specific Gravity 1.015 (1.005-1.030); Urine pH 6.5 (5.0-7.0)
[2017-09-04 11:25] LABS: Urine Microscopic Reflex ORDER UMIC
[2017-09-04 11:48] LABS: Urine Bacteria <20 /HPF (<20); Urine Culture Reflex Order NOT NEEDED; Urine RBC <5 /HPF (NONE SEEN)
[2017-09-04] MEDS ORDERED: INSULIN -REGULAR HUMAN 50 UNIT/0.5 ML ML SQ SCH (12:00)
--- NOTE | 2017-09-04 12:05 | P.HP ---
Certification for Inpatient Patient admitted to: Observation With expected LOS: <2 Midnights Practitioner: I am a practitioner with admitting privileges, knowledge of patient current condition, hospital course, and medical plan of care. Services: Services provided to patient in accordance with Admission requirements found in Title 42 Section 412.3 of the Code of Federal Regulations Patient History Date of Service: 09/04/17 Reason for admission: FEVER, ALTERED MENTAL STATUS History of Present Illness: MRS. LAFLEUR TOOK FOUR AMOX CAPSULES FOR DENTAL PROCEDURE AND WHEN CAME HOME HAD FEVER, CHILLS, WENT TO ER . GOT MACRODANTIN FOR UTI BUT WITHIN FEW HOURS GOT DISORIENTED AND SO BROUGHT HER TO ER. SHE HAS NO SYMPTOMS NOW. SHE IS FULLY ORIENTED. HAS NO HEADACHES, COUGH, CHEST PAIN, NAUSEA, VOMITING, DIARRHEA ETC. SHE HAD HEMATURIA FOR TWO DAYS, MILD. SHE HAS NO BACK PAIN MORE THAN HER USUAL. Allergies codeine [Codeine] Allergy (Intermediate, Verified 11/24/11 20:35) Shortness of breath sulfamethoxazole [From Bactrim] Allergy (Intermediate, Verified 11/24/11 20:35) Shortness of breath trimethoprim [From Bactrim] Allergy (Intermediate, Verified 11/24/11 20:35) Shortness of breath bactrim Allergy (Uncoded 09/25/13 12:05) Unknown No Known [place] Allergy (Uncoded 09/04/17 09:24) Unknown Home Medications: Hydrocodone/Acetaminophen [Lortab 5-500 Tablet] 1 each PO TID 11/25/11 Zolpidem Tartrate [Ambien] 12.5 mg PO BEDTIME PRN 11/25/11 Alprazolam [Xanax*] 0.5 mg PO Q8H PRN 04/13/12 Furosemide [Lasix*] 20 mg PO DAILY 04/13/12 Potassium Chloride 20 meq PO DAILY 04/13/12 Escitalopram Oxalate [Lexapro] 40 mg PO DAILY 09/04/17 Levocetirizine Dihydrochloride [Xyzal] 10 mg PO DAILY 09/04/17 Nortriptyline HCl [Pamelor] 10 mg PO DAILY 09/04/17 Omeprazole [Prilosec] 40 mg PO DAILY 09/04/17 Ondansetron HCl [Zofran] 4 mg PO TID 09/04/17 Ranitidine [Zantac] 150 mg PO DAILY 09/04/17 - Past Medical/Surgical History Has patient received pneumonia vaccine in the past: Yes Diabetic: Yes -: HTN -: rheumatoid arthritis -: migraines -: polio -: NIDDM -: autoimmune hepatitis -: diverticulosis -: spastic esophagus - Social History Smoking Status: Never smoker Alcohol use: No CD- Drugs: No Caffeine use: Yes Place of Residence: Home Review of Systems 10-point ROS is otherwise unremarkable General: Weakness, Malaise Physical Examination - Vital Signs Temperature: 98.0 F Blood Pressure: 121/67 Pulse: 74 Respirations: 16 - Physical Exam General: Alert, In no apparent distress HEENT: Atraumatic, PERRLA, Mucous membr. moist/pink, EOMI, Sclerae nonicteric Neck: Supple, 2+ carotid pulse no bruit, No LAD, Without JVD or thyroid abnormality Respiratory: Clear to auscultation bilaterally, Normal air movement Cardiovascular: Regular rate/rhythm, Normal S1 S2 Gastrointestinal: Normal bowel sounds, No tenderness Musculoskeletal: No tenderness Integumentary: No rashes Neurological: Normal gait, Normal speech, Normal strength at 5/5 x4 extr, Normal tone, Normal affect Lymphatics: No axilla or inguinal lymphadenopathy - Studies Laboratory Data (last 24 hrs) 09/04/17 03:12: PT 13.3 H, INR 1.13, APTT 33.1 09/04/17 03:12: WBC 14.4 H, Hgb 11.7 L, Hct 34.9 L, Plt Count 219 09/04/17 03:12: B-Natriuretic Peptide 310 H 09/04/17 03:12: Sodium 125 L, Potassium 3.5 L, BUN 10, Creatinine 0.67, Glucose 149 H, Total Bilirubin 0.9, AST 28, ALT 18, Alkaline Phosphatase 76, Amylase 41 , Lipase 23 Assessment and Plan - Problems (Diagnosis) (1) FUO (fever of unknown origin) Current Visit: Yes Status: Acute Plan: ONLY FOCAL FINDING I SEE HE HEMATURIA WILL START HER ON CIPRO SHE HAS CULTURES PENDING. ORDER CXR AND SONOGRAM OF ABDOMEN. SHE IS STABLE AND DOES NOT SHOW ANY FOCAL FINDINGS SUGGESTIVE OF ORIGIN OF FEVER. SHE HAS MILD HEMATURIA MICROSCOPIC AND NOT MUCH OF ESTERASE IN URINE SHE HAS ELELVATED CRP, SED RATE. SHE HAS KNOWN AUTOIMMUNE HEPATITIS AND RELATED COMPLICATIONS LIKE DJD, FATIGUE ETC. - Advance Directives Does patient have a Living Will: No Does patient have a Durable POA for Healthcare: No
[2017-09-04] MEDS ORDERED: ALPRAZOLAM 0.5 MG TABLET PO PRN (12:06)
[2017-09-04] MEDS ORDERED: ZOLPIDEM TARTRATE 10 MG TABLET PO PRN (12:06)
[2017-09-04] MEDS: CIPROFLOXACIN HCL 500 MG TAB PO SCH ×2 (12:24→20:09)
[2017-09-04 12:35] LABS: Blood Morphology Comment NOT SEEN (NOT SEEN); Platelet Estimate ADEQ; Urine White Blood Cell Casts OK
[2017-09-04] MEDS: HYDROCODONE/APAP 5/325 MG TAB PO SCH ×2 (13:40→20:09)
--- NOTE | 2017-09-04 13:52 | RAD REPORT ---
EXAM DESCRIPTION: US - Abdomen Exam Complete - 09/04/2017 1:43 pm CLINICAL HISTORY: Abdominal pain. COMPARISON: None. FINDINGS: The liver appears prominent in size and is coarse in echotexture suggesting chronic inflam mation or fatty infiltration. Small 14 x 14 mm cyst is present in the left lobe liver. No aggressive liver lesion or intrahepatic biliary dilatation. The gallbladder is surgically absent. Common bile duct is enlarged in size measuring 12 mm. Both kidneys are normal in size, shape and echotexture. No hydronephrosis, focal lesion of concern or perinephric fluid. The spleen is normal in size measuring 9 cm. The pancreas and aorta are obscured by bowel gas. IMPRESSION: Coarsened and heterogenous appearance to the liver parenchyma suggests chronic hepatic i nflammation or fatty infiltration. Cholecystectomy with mildly prominent (12 mm) common bile duct.
--- NOTE | 2017-09-04 15:46 | RAD REPORT ---
EXAM DESCRIPTION: RAD - Chest Pa And Lat (2 Views) - 09/04/2017 2:43 pm CLINICAL HISTORY: Fever COMPARISON: 04/24/2014 FINDINGS: Linear subsegmental atelectasis is present in the right lung base. The lungs are otherwise clear. The heart is normal in size. No displaced fractures. Cholecystectomy clips. IMPRESSION: Linear subsegmental atelectasis is noted in the right lung base.
[2017-09-04] MEDS: INSULIN -REGULAR HUMAN 50 UNIT/0.5 ML ML SQ SCH ×2 (16:19→20:42)
[2017-09-04] MEDS ORDERED: ONDANSETRON HCL 40 MG/20 ML VIAL IV PRN (20:42)
[2017-09-04] MEDS: ZOLPIDEM TARTRATE 10 MG TABLET PO PRN (22:08)
[2017-09-05] MEDS: PANTOPRAZOLE 40MG TABLET PO SCH (06:00)
[2017-09-05] MEDS: ACETAMINOPHEN 500 MG TAB PO PRN (06:00)
[2017-09-05] MEDS: INSULIN -REGULAR HUMAN 50 UNIT/0.5 ML ML SQ SCH ×4 (07:30→20:54)
[2017-09-05 07:57] LABS: BUN Blood Urea Nitrogen 7 mg/dL (6-20); Glucose Level 119 mg/dL (65-120)
[2017-09-05 08:01] LABS: Absolute Lymphocytes (CBC) 0.8 K/uL (0.7-4.9); Absolute Neutrophil 7.5 K/uL (1.8-8.0); Basophils % 0.4 % (0-1.3); Eosinophils % 0.2 % (0-4.4); Hematocrit 31.2 % (36.0-45.0); Lymphocytes % 7.8 % (15.3-44.8); MCH 29.6 pg (27.0-35.0); MCV 86.4 fL (80-100); MPV 8.8 fL (7.6-11.3); RBC Red Blood Cell Count 3.61 M/uL (3.86-4.86)
[2017-09-05 08:03] LABS: Bicarbonate 24 mEq/L (21-31); Sodium Level 127 mEq/L (135-145)
[2017-09-05 08:05] LABS: Albumin 2.8 g/dL (3.2-5.5); Bilirubin Direct 0.2 mg/dL (0-0.2); Bilirubin Total 0.7 mg/dL (0.3-1.2); Potassium 2.9 mEq/L (3.6-5.0); Protein, Total 6.3 g/dL (6.0-8.3)
[2017-09-05] MEDS ORDERED: HOME MED 1 EA UNK (Omeprazole [Prilosec] 40 MG) PO SCH (09:00)
[2017-09-05 09:02] LABS: Blood Morphology Comment NOT SEEN (NOT SEEN); Platelet Estimate ADEQ; Urine White Blood Cell Casts OK
[2017-09-05] MEDS: CIPROFLOXACIN HCL 500 MG TAB PO SCH ×2 (09:14→20:03)
[2017-09-05] MEDS: KCL 20 MEQ/100 mL IVPB 20 MEQ/100 ML BAG IV SCH ×3 (09:14→12:34)
[2017-09-05] MEDS: HYDROCODONE/APAP 5/325 MG TAB PO SCH ×3 (09:14→20:03)
[2017-09-05] MEDS: ESCITALOPRAM 20 MG TAB PO SCH (09:15)
[2017-09-05] MEDS: RANITIDINE 150 MG TABLET PO SCH (09:15)
[2017-09-05] MEDS: NORTRIPTYLINE HCL 10 MG CAP PO SCH (09:15)
--- NOTE | 2017-09-05 09:16 | EKG ---
Test Date: 2017-09-04 Test Time: 03:17:27 Pitch Filler: BP MEASUREMENT RESULTS: Intervals: Rate: 79 MA: 148 QRSD: 76 QT: 386 QTc: 442 [place]: P: 77 MA: 148 QRS: 56 T: 47 INTERPRETIVE STATEMENTS: Normal sinus rhythm Normal ECG Compared to ECG 10/08/2014 17:45:34 No significant changes Electronically Signed On 09-05-17 09:15:37 CDT by Rodger Betancur
[2017-09-05] MEDS ORDERED: NA CHLORIDE 0.9% 250 ML ONE ×2 (09:19→20:00)
[2017-09-05 13:04] VITALS: O2SAT 97
[2017-09-05] MEDS ORDERED: ONDANSETRON 4 MG/2 ML VIAL IV PRN (14:44)
--- NOTE | 2017-09-05 18:09 | P.PN ---
Subjective Date of Service: 09/05/17 Chief Complaint: LOT BETTER TODAY Subjective: Improving Review of Systems 10-point ROS is otherwise unremarkable General: Weakness, Malaise Physical Examination - Vital Signs Temperature: 97.4 F Blood Pressure: 136/60 Pulse: 69 Respirations: 16 Pulse Ox (%): 96 - Physical Exam General: Alert, In no apparent distress HEENT: Atraumatic, PERRLA, EOMI Neck: Supple, JVD not distended Respiratory: Clear to auscultation bilaterally, Normal air movement Cardiovascular: Regular rate/rhythm, Normal S1 S2 Gastrointestinal: Normal bowel sounds, No tenderness Musculoskeletal: No tenderness Integumentary: No rashes Neurological: Normal speech, Normal tone, Normal affect Lymphatics: No axilla or inguinal lymphadenopathy - Studies Medications List Reviewed: Yes Assessment And Plan - Current Problems (Diagnosis) (1) FUO (fever of unknown origin) Onset Date: 09/05/17 Current Visit: Yes Status: Acute Plan: ONLY FOCAL FINDING I SEE HE HEMATURIA WILL START HER ON CIPRO SHE HAS CULTURES PENDING. ORDER CXR AND SONOGRAM OF ABDOMEN. SHE IS STABLE AND DOES NOT SHOW ANY FOCAL FINDINGS SUGGESTIVE OF ORIGIN OF FEVER. SHE HAS MILD HEMATURIA MICROSCOPIC AND NOT MUCH OF ESTERASE IN URINE SHE HAS ELELVATED CRP, SED RATE. SHE HAS KNOWN AUTOIMMUNE HEPATITIS AND RELATED COMPLICATIONS LIKE DJD, FATIGUE ETC. UTI IS THE ONLY SOURCE SO FAR BC2 PENDING. SONOGRAM NEGATIVE CXR , ATELECTASIS (2) Hypokalemia Current Visit: Yes Status: Acute Plan: FOLLOW REP. PROTOCOL.
[2017-09-05] MEDS ORDERED: KCL 20 MEQ/100 mL IVPB 20 MEQ/100 ML BAG IV SCH (20:00)
[2017-09-05] MEDS: ZOLPIDEM TARTRATE 10 MG TABLET PO PRN (20:24)
[2017-09-05] MEDS ORDERED: POTASSIUM 25 MEQ EFFERV TAB PO ONE (20:59)
[2017-09-06 05:24] LABS: BUN Blood Urea Nitrogen 7 mg/dL (6-20); Bicarbonate 25 mEq/L (21-31); Glucose Level 118 mg/dL (65-120); Potassium 3.6 mEq/L (3.6-5.0); Sodium Level 131 mEq/L (135-145)
[2017-09-06] MEDS: PANTOPRAZOLE 40MG TABLET PO SCH (05:36)
[2017-09-06] MEDS ORDERED: POTASSIUM 25 MEQ EFFERV TAB PO ONE (06:30)
[2017-09-06] MEDS: INSULIN -REGULAR HUMAN 50 UNIT/0.5 ML ML SQ SCH ×2 (07:30→11:30)
[2017-09-06] MEDS: HYDROCODONE/APAP 5/325 MG TAB PO SCH (09:38)
[2017-09-06] MEDS: NORTRIPTYLINE HCL 10 MG CAP PO SCH (09:38)
[2017-09-06] MEDS: ESCITALOPRAM 20 MG TAB PO SCH (09:39)
[2017-09-06] MEDS: RANITIDINE 150 MG TABLET PO SCH (09:41)
[2017-09-06] MEDS: CIPROFLOXACIN HCL 500 MG TAB PO SCH (09:41)
[2017-09-06 18:16] VITALS: BP 144/66; TEMP 97.3
--- NOTE | 2017-09-06 21:26 | P.DS ---
Admission Date: 09/04/17 Discharge Date: 09/06/17 Disposition: ROUTINE DISCHARGE Reason for Admission: LOT BETTER TODAY - Problems (1) FUO (fever of unknown origin) Onset Date: 09/05/17 Status: Acute (2) Hypokalemia Status: Acute Brief History of Present Illness: MRS. LAFLEUR TOOK [facility] FOR DENTAL PROCEDURE AND WHEN CAME HOME HAD FEVER, CHILLS, WENT TO ER . GOT MACRODANTIN FOR UTI BUT WITHIN FEW HOURS GOT DISORIENTED AND SO BROUGHT HER TO ER. SHE HAS NO SYMPTOMS NOW. SHE IS FULLY ORIENTED. HAS NO HEADACHES, COUGH, CHEST PAIN, NAUSEA, VOMITING, DIARRHEA ETC. SHE HAD HEMATURIA FOR TWO DAYS, MILD. SHE HAS NO BACK PAIN MORE THAN HER USUAL. BONITA HAS BEEN TO URGENT CARE. BEFORE THAT SHE GOT [facility] FOR DENTAL WORK. URGENT CARE GAVE HER MACRODANTIN FOR UTI. HER CULTURES IS NEGATIVE SHE ALREADY GOT ABX. SHE HAS IMPROVED WELL ON CIPRO PO. SHE WILL CONTINUE IT FOR 7 MORE DAYS . HER K HAD DROPPED FROM INFECTION AND WILL CONTINUE LAB FU ON OUTPATIENT BASIS. Vital Signs/Physical Exam: Temp Pulse Resp BP Pulse Ox 97.3 F 64 18 144/66 H 95 09/06/17 12:00 09/06/17 12:00 09/06/17 12:00 09/06/17 12:00 09/06/17 12:00 Laboratory Data at Discharge: WBC 10.3 K/uL (4.3-10.9) D 09/05/17 07:07 Hgb 10.7 g/dL (12.0-15.0) L 09/05/17 07:07 Hct 31.2 % (36.0-45.0) L 09/05/17 07:07 Plt Count 213 K/uL (152-406) 09/05/17 07:07 PT 13.3 SECONDS (9.5-12.5) H 09/04/17 03:12 INR 1.13 09/04/17 03:12 APTT 33.1 SECONDS (24.3-36.9) 09/04/17 03:12 Sodium 131 mEq/L (135-145) L 09/06/17 04:22 Potassium 3.6 mEq/L (3.6-5.0) 09/06/17 04:22 BUN 7 mg/dL (6-20) 09/06/17 04:22 Creatinine 0.48 mg/dL (0.44-1.00) 09/06/17 04:22 Glucose 118 mg/dL (65-120) 09/06/17 04:22 Total Bilirubin 0.7 mg/dL (0.3-1.2) 09/05/17 07:07 AST 41 IU/L (10-42) 09/05/17 07:07 ALT 24 IU/L (10-60) 09/05/17 07:07 Alkaline Phosphatase 80 IU/L (42-121) 09/05/17 07:07 B-Natriuretic Peptide 310 pg/ml (<=100) H 09/04/17 03:12 Amylase 41 U/L (28-100) 09/04/17 03:12 Lipase 23 U/L (22-51) 09/04/17 03:12 Home Medications: Hydrocodone/Acetaminophen [Lortab 5-500 Tablet] 1 each PO TID 11/25/11 Zolpidem Tartrate [Ambien] 12.5 mg PO BEDTIME PRN 11/25/11 Alprazolam [Xanax*] 0.5 mg PO Q8H PRN 04/13/12 Furosemide [Lasix*] 20 mg PO DAILY 04/13/12 Potassium Chloride 20 meq PO DAILY 04/13/12 Escitalopram Oxalate [Lexapro] 40 mg PO DAILY 09/04/17 Levocetirizine Dihydrochloride [Xyzal] 10 mg PO DAILY 09/04/17 Metoclopramide HCl [Reglan] 10 mg PO TIDWM 09/04/17 Nortriptyline HCl [Pamelor] 10 mg PO DAILY 09/04/17 Omeprazole [Prilosec] 40 mg PO DAILY 09/04/17 Ondansetron HCl [Zofran] 4 mg PO TID 09/04/17 Ranitidine [Zantac] 150 mg PO DAILY 09/04/17 Ciprofloxacin HCl [Cipro 500 MG Tablet] 500 mg PO BID #14 tab 09/06/17 New Medications: Ciprofloxacin HCl [Cipro 500 MG Tablet] 500 mg PO BID #14 tab Followup: Kristian Torres MD [Primary Care Provider] - 1-2 Weeks (Call for appointment)
== END 2017-09-06 14:06 | disposition home or self-care (01) ==
LOC: ER 02:19 → INTOOBSV 05:23 → ERHOLD 05:23 → 2ND 09:08
PROVIDERS: ADMIT Internal Medicine; ATTEND Internal Medicine
DX: E87.6 Hypokalemia (principal); N39.0 Urinary tract infection, site not specified; K75.4 Autoimmune hepatitis; I10 Essential (primary) hypertension; M06.9 Rheumatoid arthritis, unspecified; E11.9 Type 2 diabetes mellitus without complications; Z88.2 Allergy status to sulfonamides
CPT/HCPCS: 36415 ×2; 51702; 71046; 76700; 80048 ×4; 80076 ×2; 82150; 82550; 82553; 82962 ×10; 83605; 83690; 83880; 84132; 84145; 84484; 85025 ×3; 85610; 85652; 85730; 86140; 87040 ×2; 87086; 87088; 93005; 96361; 96365; 96366; 99285; G0378 ×2; J0696; J7030; 81003; 81015

== ENCOUNTER → 2018-05-26 | Day surgery (SDC) | payer OTHER ==
[2011-11-29 12:05] VITALS: BP 98/55
--- OUTSIDE RECORDS SUMMARY | 2018-05-26 09:44 | XMS REPORT | Clinical Summary ---
:1950 Author Organization [facility] Address [address] [place] [address] Care Team Providers Name Role Phone Asked, No Pcp Primary Care Provider Unavailable Allergies Active Allergy Reactions Severity Noted Date Comments Sulfamethoxazole-Trimethoprim Palpitations Low 10/28/2015 Ciprofloxacin Other (See Comments) 02/12/2016 Bleeding Codeine Itching 02/12/2016 Chest pain Morphine Sulfate Itching 09/07/2012 Medications Medication Sig Dispensed Refills Start End Date Status Date inFLIXimab Infuse 600 mg 0 Active (REMICADE) 100 mg into a venous 3 injection catheter. losartan (COZAAR) Take 25 mg by 0 Active 25 MG tablet mouth daily. metFORMIN Take 500 mg by 0 Active (GLUCOPHAGE) 500 MG mouth 2 (two) tablet times a day with meals. ranitidine (ZANTAC) Take 75 mg by 0 Active 75 MG tablet mouth. zolpidem (AMBIEN) Take 10 mg by 0 Active 10 mg tablet mouth. ALPRAZolam (XANAX) Take 0.5 mg by 0 Active 0.5 MG tablet mouth 3 (three) 6 times a day as needed. for anxiety gabapentin TAKE ONE CAPSULE 1 Active (NEURONTIN) 100 MG BY MOUTH 3 TIMES 6 capsule A DAY STOP LYRICA hyoscyamine Take 125 mcg by 5 Active (ANASPAZ,LEVSIN) mouth 3 (three) 6 0.125 mg tablet times a day. metoclopramide Take 10 mg by 3 Active (REGLAN) 10 MG mouth 4 (four) 6 tablet times a day. modafinil Take 200 mg by 0 Active (PROVIGIL) 200 MG mouth every 6 tablet morning. omeprazole Take 40 mg by 3 Active (PriLOSEC) 40 MG mouth once daily. 6 capsule ondansetron TAKE 1 TABLET BY 1 Active (ZOFRAN) 4 MG MOUTH EVERY 8 6 tablet HOURS NEEDED FOR NAUSEA/VOMIT potassium chloride Take 20 mEq by 1 Active (K-DUR) 20 MEQ CR mouth once daily. 6 tablet SUMAtriptan TK 1 T PO QD PRN. 3 Active (IMITREX) 100 MG 6 tablet escitalopram Take 40 mg by 0 Active (LEXAPRO) 20 MG mouth daily. tablet furosemide (LASIX) Take 40 mg by 0 Active 40 mg tablet mouth daily. 7 HYDROcodone-acetami TAKE 1/2 TABLT BY 0 Active nophen (NORCO) MOUTH 4 TIMES 7 10-325 mg per DAILY FOR 28 DAYS tablet azaTHIOprine Take 3 pills bid 270 tablet 1 03/31/20 Active (IMURAN) 50 mg 8 19 tablet levocetirizine Take by mouth 0 Active dihydrochloride nightly. (XYZAL ORAL) ranitidine (ZANTAC) Take 150 mg by 0 Active 150 MG tablet mouth 2 (two) times a day. nortriptyline nortriptyline 10 0 Active (PAMELOR) 10 MG mg capsule capsule cetirizine (ZyrTEC) Take 10 mg by 0 09/15/19 Discontinued 10 MG tablet mouth nightly. 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, lumbar region Autoimmune hepatitis Rheumatoid arthritis of multiple sites without rheumatoid factor Anxiety and depression GERD (gastroesophageal reflux disease) Encounters Date Type Specialty Care Team Description 02/02/2018 Telephone Rheumatology Cristopher Bettencourt MD 09/14/2017 Office Visit Rheumatology Cristopher Bettencourt MD Rheumatoid arthritis of multiple sites without rheumatoid factor (Primary Dx); Encounter for long-term (current) use of high-risk medication; Anxiety and depression 06/01/2017 Orders Only Rheumatology Tamara Salinas MA after 05/25/2017 Family History Relation Name Status Comments Father Mother Social History Tobacco Use Types Packs/Day Years Used Date Never Smoker Smokeless Tobacco: Never Used Alcohol Use Drinks/Week oz/Week Comments No Sex Assigned at Date Recorded Not on file Job Start Date Occupation Industry Not on file Not on file Not on file Travel History Travel Start Travel End No recent travel history available. Last Filed Vital Signs Vital Sign Reading Time Taken Blood Pressure 124/72 09/14/2017 10:51 AM CDT Pulse 81 09/14/2017 10:51 AM CDT Temperature 36.4 C (97.6 F) 09/14/2017 10:51 AM CDT Respiratory Rate 14 09/14/2017 10:51 AM CDT Oxygen Saturation 98% 09/14/2017 10:51 AM CDT Inhaled Oxygen Concentration - - Weight 79.8 kg (175 lb 14.4 oz) 09/14/2017 10:51 AM CDT Height 167.6 cm (5' 6") 09/14/2017 10:51 AM CDT Body Mass Index 28.39 09/14/2017 10:51 AM CDT Plan of Treatment Date Type Specialty Care Team Description 08/03/2018 Office Visit Rheumatology Cristopher Bettencourt MD [address] [facility] [address] [place] [address] Health Maintenance Due Date Last Done Comments DIABETIC RETINAL EYE EXAM 1950 DIABETIC FOOT EXAM 11/24/1961 BREAST CANCER SCREENING 11/24/2001 COLON CANCER SCREENING 11/24/2001 SHINGLES VACCINES (1 of 2) 11/24/2001 PNEUMOCOCCAL POLYSACCHARIDE VACCINE AGE 65 AND OVER 11/24/2016 PNEUMOCOCCAL-13 11/24/2016 INFLUENZA VACCINE 11/23/2017 Results Not on fileafter 05/25/2017 Insurance Payer Benefit Plan / Group Subscriber ID Type Phone Address [employer] MEDICARE A[employer] MEDICARE HMO/PPO [facility] xxxxxxxx HMO Advance Directives Patient has advance care planning documents on file. For more information, please contact:Jaxon [place] [place] [address]
--- OUTSIDE RECORDS SUMMARY | 2018-05-26 09:45 | XMS REPORT | Clinical Summary ---
:1950 Author Organization [facility] Address [address] [place] [address] Care Team Providers Name Role Phone Kristian Torres Primary Care Provider Cristopher Bettencourt MD Consulting Physician Allergies Active Allergy Reactions Severity Noted Date Comments Sulfamethoxazole-Trimethoprim Other (See Comments) 09/07/2012 Shaking Ciprofloxacin Other (See Comments) 09/07/2012 Bleeding Codeine Other (See Comments) 09/07/2012 Chest pain Morphine Sulfate Itching 09/07/2012 Medications Medication Sig Dispensed Refills Start End Date Status Date zolpidem (AMBIEN) Take 10 mg by 0 Active 10 mg tablet mouth every night as needed. ranitidine (ZANTAC) Take 75 mg by 0 Active 75 MG tablet mouth nightly. Pt unsure of dosage losartan (COZAAR) Take 25 mg by 0 Active 25 MG tablet mouth daily. metFORMIN Take 1,000 mg by 0 Active (GLUCOPHAGE) 500 MG mouth 2 (two) tablet times daily with breakfast and dinner . ALPRAZolam (XANAX) Take 0.5 mg by 0 Active 0.5 MG tablet mouth. 6 gabapentin Take 100 mg by 0 Active (NEURONTIN) 100 MG mouth 3 (three) capsule times daily. furosemide (LASIX) 40 mg daily . 0 Active 40 MG tablet 8 hyoscyamine 0 Active (ANASPAZ,LEVSIN) 0.125 mg=1 tab, PO, TID, 0 Refill(s) 7 0.125 mg tablet levocetirizine 5 mg=1 tab, PO, 0 Active (XYZAL) 5 MG tablet QPM, # 30 tab, 1 7 Refill(s) melatonin 10 mg Cap 10 mg=1 PO, 0 Active Bedtime, PRN for 7 insomnia, # 60 tab, 0 Refill(s) modafinil 200 mg daily . 0 Active (PROVIGIL) 200 MG 8 tablet nortriptyline nortriptyline 10 0 Active (PAMELOR) 10 MG mg capsule capsule omeprazole omeprazole 40 mg 0 Active (PRILOSEC) 40 MG capsule,delayed capsule release potassium chloride Take 20 mEq by 0 Active SA (K-DUR,KLOR-CON) mouth daily . 8 20 MEQ tablet pyridoxine, vitamin Take 100 mg by 0 Active B6, (VITAMIN B-6) mouth daily. 100 MG tablet azaTHIOprine Take 1 tablet (50 60 tablet 11 Active (IMURAN) 50 mg mg total) by 8 tabletIndications: mouth 2 (two) Autoimmune times daily. hepatitis (HCC) metoclopramide HCl Take 1 tablet (10 120 tablet 11 Active (REGLAN) 10 MG mg total) by 8 tablet mouth 4 (four) times daily. escitalopram Take 40 mg by 0 01/27/20 Discontinued (LEXAPRO) 20 MG mouth daily. 18 tablet ARIPiprazole Take 2 mg by 0 01/27/20 Discontinued (ABILIFY) 2 MG mouth daily. 18 tablet azaTHIOprine Take 100 mg by 0 01/27/20 Discontinued (IMURAN) 50 mg mouth continuous 18 tablet prn. buPROPion Take 100 mg by 0 01/27/20 Discontinued (WELLBUTRIN) 100 MG mouth daily. 18 tabletIndications: Rheumatoid arthritis cetirizine (ZYRTEC) Take 10 mg by 0 01/27/20 Discontinued 10 MG tablet mouth daily. Pt 18 unsure of dosage sotalol AF Take 80 mg by 0 01/27/20 Discontinued (BETAPACE AF) 80 MG mouth 2 (two) 18 tabletIndications: times daily. Rheumatoid arthritis(714.0) vortioxetine Take 5 mg by 0 01/27/20 Discontinued (TRINTELLIX) 5 mg mouth daily Will 18 Tab increase to 10 mg after 7 days. . metoclopramide HCl TAKE 1 TABLET BY 0 02/11/20 Discontinued (REGLAN) 10 MG MOUTH 4 TIMES A 18 tablet DAY azaTHIOprine Take 2 tablets 180 tablet 3 02/11/20 Discontinued (IMURAN) 50 mg (100 mg total) by 8 18 tabletIndications: mouth 2 (two) Autoimmune times daily. hepatitis (HCC) Hospital, Clinic, or Ordered Dose Route Frequency Start Date End Date Status Other Facility Administered Medication inFLIXimab (REMICADE) 600 mg IV Once 03/29/2013 Active 600 mg in sodium chloride 0.9% (NS) 250 mL IVPBIndications: Rheumatoid arthritis sodium chloride 0.9% IV Once 01/17/2015 Active (NS) infusion sodium chloride 0.9% IV Once 09/19/2015 Active (NS) infusion sodium chloride 0.9% IV Once 10/17/2015 Active (NS) infusion diphenhydrAMINE 25 mg Oral Once 11/19/2016 Active (BENADRYL) capsule 25 mg acetaminophen 650 mg Oral Once 11/19/2016 Active (TYLENOL) tablet 650 mg inFLIXimab (REMICADE) 600 mg IV Once 04/01/2017 Active 600 mg in sodium chloride 0.9% (NS) EXCEL 250 mL IVPB inFLIXimab (REMICADE) 600 mg IV Once 05/13/2017 Active 600 mg in sodium chloride 0.9% (NS) EXCEL 250 mL IVPB inFLIXimab (REMICADE) 600 mg IV Once 06/10/2017 06/10/2017 Ended 600 mg in sodium chloride 0.9% (NS) EXCEL 250 mL IVPB sodium chloride 0.9% IV Once 06/10/2017 06/10/2017 Ended (NS) infusion diphenhydrAMINE 25 mg Oral Once 06/10/2017 06/10/2017 Ended (BENADRYL) capsule 25 mg acetaminophen 650 mg Oral Once 06/10/2017 06/10/2017 Ended (TYLENOL) tablet 650 mg ondansetron (ZOFRAN) 4 8 mg IV Once as needed 06/10/2017 06/10/2017 Ended mg/2 mL injection 8 mg inFLIXimab (REMICADE) 600 mg IV Once 07/22/2017 07/22/2017 Ended 600 mg in sodium chloride 0.9% (NS) EXCEL 250 mL IVPB diphenhydrAMINE 25 mg Oral Once 07/22/2017 07/22/2017 Ended (BENADRYL) capsule 25 mg acetaminophen 650 mg Oral Once 07/22/2017 07/22/2017 Ended (TYLENOL) tablet 650 mg ondansetron (ZOFRAN) 4 8 mg IV Once as needed 07/22/2017 07/22/2017 Ended mg/2 mL injection 8 mg sodium chloride 0.9% IV Once 07/22/2017 07/22/2017 Ended (NS) infusion Active Problems Problem Noted Date Autoimmune hepatitis treated with steroids 01/26/2018 Last Assessment & Plan: Diagnosis was made by liver biopsy changes showing numerous plasma cells with some bridging fibrosis. Positive ASMA at that time when diagnosis made. Treated with steroids and now on maintenance therapy with Imuran. The liver enzymes are near normal with no suggestion of active autoimmune hepatitis at this time. There was one episode of enzymes elevation in 2013 but more recently the ALT range has been in the 20s range. Will pull the liver biopsy slides for review. We will continue with Imuran for now. Immunity status testing 01/26/2018 Cancer screening 01/26/2018 Last Assessment & Plan: Unclear where her IBD - Crohn's is localized. We will request records from Dr. Stoddard's office. Screening colonoscopy will be done per Dr. Stoddard's recommendations. Crohn's disease without complication 06/11/2014 Last Assessment & Plan: Treated with Remicade for 5 years and stopped earlier this year. Will need to monitor closely for recurrent symptoms. She must also follow up with primary GI Dr. Stoddard. We will request records from his office. Rheumatoid arthritis with negative rheumatoid factor 09/28/2012 Last Assessment & Plan: No active rheumatoid flare. She was previously treated with methotrexate but it was stopped due to elevated liver tests. She is only on low dose imuran 50 BID right now. She follows with Dr. Yao (Rheumatology). Encounters Date Type Specialty Care Team Description 02/10/2018 Orders Only Hepatology Elida Lujan RN Autoimmune hepatitis ( HCC) 02/10/2018 Telephone Transplant Sandrita Loya Medication Refill TEODORO León 02/02/2018 Abstract Hepatology Lakisha Casper MA 01/30/2018 Abstract Hepatology Leticia Liriano MA 01/26/2018 Office Visit Hepatology Bashir Xiao, Autoimmune hepatitis (HCC) (Primary Dx); Immunity status testing; Screening for malignant neoplasm; Autoimmune hepatitis treated with steroids ; Crohn's disease without complication, unspecified gastrointestinal tract location (HCC); Rheumatoid arthritis involving shoulder with negative rheumatoid factor , unspecified laterality (HCC); Cancer screening 12/30/2017 Documentation Hepatology Leticia Liriano MA 12/29/2017 Telephone Hepatology Elana Haines Appointment 12/08/2017 Telephone Hepatology Elana Haines Appointment 07/22/2017 Procedure visit Oncology Antonio Perez Rheumatoid arthritis MD [place] involving right shoulder Cristopher Bettencourt MD with positive rheumatoid Ivelisse Kumar RN factor (HCC) (Primary Dx) 06/10/2017 Procedure visit Oncology Antonio Perez Rheumatoid arthritis MD [place] involving right shoulder Cristopher Bettencourt MD with positive rheumatoid Ivelisse Kumar RN factor (HCC) (Primary Dx) after 05/25/2017 Family History Medical History Relation Name Comments No Known Problem Father Cancer Maternal Aunt Gout Mother Hypertension Mother Cancer Paternal Aunt 6 great aunts Relation Name Status Comments Father Maternal Aunt Mother Tylenol poisoning Paternal Aunt 6 great aunts Social History Tobacco Use Types Packs/Day Years [...] Vital Sign Reading Time Taken Blood Pressure 137/80 01/26/2018 10:44 AM CDT Pulse 77 01/26/2018 10:44 AM CDT Temperature 36.5 C (97.7 F) 01/26/2018 10:44 AM CDT Respiratory Rate 18 01/26/2018 10:44 AM CDT Oxygen Saturation 99% 01/26/2018 10:44 AM CDT Inhaled Oxygen Concentration - - Weight 82.6 kg (182 lb 1.6 oz) 01/26/2018 10:44 AM CDT Height 165.6 cm (5' 5.2") 01/26/2018 10:44 AM CDT Body Mass Index 30.12 01/26/2018 10:44 AM CDT Plan of Treatment Date Type Specialty Care Team Description 05/31/2018 Office Visit Hepatology Bashir Xiao MD [address] [address] [phone] Resource, [facility] Health Maintenance Due Date Last Done Comments INFLUENZA VACCINE 01/23/2018 Procedures Procedure Name Priority Date/Time Associated Comments Diagnosis CBC W/PLT COUNT & AUTO Routine 01/26/2018 1:01 Autoimmune Results for this DIFFERENTIAL PM CDT hepatitis (HCC) procedure are in the results section. HEPATITIS C ANTIBODY Routine 01/26/2018 1:01 Autoimmune Results for this PM CDT hepatitis (HCC) procedure are in the results section. HEPATITIS B SURFACE Routine 01/26/2018 1:01 Autoimmune Results for this ANTIGEN PM CDT hepatitis (HCC) procedure are in the results section. HEPATITIS B SURFACE Routine 01/26/2018 1:01 Autoimmune Results for this ANTIBODY PM CDT hepatitis (HCC) procedure are in the results section. HEPATITIS B CORE Routine 01/26/2018 1:01 Autoimmune Results for this ANTIBODY, TOTAL PM CDT hepatitis (HCC) procedure are in the results section. HEPATITIS A ANTIBODY, Routine 01/26/2018 1:01 Autoimmune Results for this IGG PM CDT hepatitis (HCC) procedure are in the results section. PROTHROMBIN TIME/INR Routine 01/26/2018 1:01 Autoimmune Results for this PM CDT hepatitis (HCC) procedure are in the results section. CBC W/PLT COUNT & AUTO Routine 01/26/2018 1:01 Autoimmune Results for this DIFFERENTIAL PM CDT hepatitis (HCC) procedure are in the results section. HEPATIC FUNCTION PANEL Routine 01/26/2018 1:01 Autoimmune Results for this PM CDT hepatitis (HCC) procedure are in the results section. BASIC METABOLIC PANEL Routine 01/26/2018 1:01 Autoimmune Results for this (7) PM CDT hepatitis (HCC) procedure are in the results section. CBC W/PLT COUNT & AUTO STAT 06/10/2017 11:21 Rheumatoid Results for this DIFFERENTIAL AM BLOGS MANAGER arthritis involving procedure are in right shoulder with the results positive rheumatoid section. factor (HCC) COMPREHENSIVE STAT 06/10/2017 11:21 Rheumatoid Results for this METABOLIC PANEL AM BLOGS MANAGER arthritis involving procedure are in right shoulder with the results positive rheumatoid section. factor (HCC) CBC W/PLT COUNT & AUTO STAT 06/10/2017 11:21 Rheumatoid Results for this DIFFERENTIAL AM BLOGS MANAGER arthritis involving procedure are in right shoulder with the results positive rheumatoid section. factor (HCC) after 05/25/2017 Results Hepatitis A Antibody, IgG ([facility] Only) (01/26/2018 1:01 PM CDT) Hep A IgG Reactive (A) Nonreactive [facility] Specimen Blood Performing Organization Address City/State/Zipcode Phone Number [facility] [address] [place] [address] CENTER CBC with platelet count + automated diff (01/26/2018 1:01 PM CDT)Only the most recent of2 resultswithin the time period is included. WBC 5.3 3.5 - 10.5 K/L [facility] RBC 4.61 3.93 - 5.22 M/L [facility] Hemoglobin 12.8 11.2 - 15.7 GM/DL [facility] Hematocrit 39.8 34.1 - 44.9 % [facility] MCV 86.3 79.4 - 94.8 fL [facility] MCH 27.8 25.6 - 32.2 pg [facility] MCHC 32.2 32.2 - 35.5 GM/DL [facility] RDW 14.0 11.7 - 14.4 % [facility] Platelets 316 150 - 450 K/CU MM [facility] MPV 9.7 9.4 - 12.3 fL [facility] nRBC 0 0 - 0 /100 WBC [facility] % Neutros 62 % [facility] % Lymphs 22 % [facility] % Monos 12 % [facility] % Eos 4 % [facility] % Baso 1 % [facility] # Neutros 3.27 1.56 - 6.13 K/L [facility] # Lymphs 1.14 (L) 1.18 - 3.74 K/L [facility] # Monos 0.62 (H) 0.24 - 0.36 K/L [facility] # Eos 0.19 0.04 - 0.36 K/L [facility] # Baso 0.07 0.01 - 0.08 K/L [facility] Immature Granulocytes-Relative 0 0 - 1 % [facility] Specimen Blood Performing Organization Address City/State/Zipcode Phone Number [address] [address] [phone] [place] Hepatitis C antibody (01/26/2018 1:01 PM CDT) Hepatitis C Ab NON-REACTIVE Nonreactive [facility] Specimen Blood Performing Organization Address City/[facility]/Zipcode Phone Number [address] [address] [phone] [place] Hepatitis B core antibody, total (01/26/2018 1:01 PM CDT) Hep B Core Total Ab NON-REACTIVE Nonreactive [facility] Specimen Blood Performing Organization Address City/[facility] Phone Number [address] [address] [phone] [place] Hepatitis B surface antibody (01/26/2018 1:01 PM CDT) Hep B S Ab <8.0 <8.0 mIU/mL [facility] Specimen Blood Performing Organization Address City/State/Zipcode Phone Number [address] [address] [place] Hepatitis B surface antigen (01/26/2018 1:01 PM CDT) hepatitis B Surface Ag NON-REACTIVE Nonreactive [facility] Specimen Blood Performing Organization Address City/State/Zipcode Phone Number [address] [address] [place] Pro-time/INR (01/26/2018 1:01 PM CDT) Protime 13.4 11.7 - 14.7 seconds [facility] INR 1.0 <=5.9 [facility] Specimen Blood Narrative Performed At [facility] RECOMMENDED COUMADIN/WARFARIN INR THERAPY RANGES STANDARD DOSE: 2.0 - 3.0 Includes: PROPHYLAXIS for venous thrombosis, systemic embolization; TREATMENT for venous thrombosis and/or pulmonary embolus. HIGH RISK: Target INR is 2.5-3.5 for patients with mechanical heart valves. Performing Organization Address [facility] Phone Number [address] [address] [phone] [place] Hepatic function panel (01/26/2018 1:01 PM CDT) Protein, Total 9.0 (H) 6.0 - 8.3 gm/dL [facility] Albumin 4.2 3.5 - 5.0 g/dL [facility] Total Bilirubin 0.3 0.2 - 1.2 mg/dL [facility] Bilirubin, Direct 0.2 0.1 - 0.5 mg/dL [facility] Alkaline Phosphatase 111 40 - 150 U/L [facility] AST 44 (H) 5 - 34 U/L [facility] ALT 30 6 - 55 U/L [facility] Specimen Blood Performing Organization Address City/[facility] Phone Number [facility] [address] [place] [address] [phone] [place] Basic Metabolic Panel (01/26/2018 1:01 PM CDT) Sodium 129 (L) 136 - 145 meq/L [facility] Potassium 4.0 3.5 - 5.1 meq/L [facility] Chloride 94 (L) 98 - 107 meq/L [facility] CO2 24 22 - 29 meq/L [facility] BUN 4 (L) 7 - 21 mg/dL [facility] Creatinine 0.67 0.57 - 1.25 mg/dL [facility] Glucose 98 70 - 105 mg/dL [facility] Calcium 9.7 8.4 - 10.2 mg/dL [facility] EGFR 88Comment: ESTIMATED GFR IS mL/min/1.73 sq m [facility] NOT ACCURATE [facility] CLEARANCE IN PREDICTING GLOMERULAR FILTRATION RATE. ESTIMATED GFR IS NOT APPLICABLE FOR DIALYSIS PATIENTS. Specimen Blood Performing Organization Address City/State/Zipcode Phone Number [facility] [address] [place] [address] CENTER Comprehensive metabolic panel (06/10/2017 11:21 AM BLOGS MANAGER) Protein, Total 8.0Comment: Specimen 6.0 - 8.3 gm/dL [facility] moderately hemolyzed [facility] Albumin 3.7Comment: Specimen 3.5 - 5.0 g/dL [facility] moderately hemolyzed [facility] Alkaline Phosphatase 77 40 - 150 U/L [facility] Total Bilirubin 0.4Comment: Specimen 0.2 - 1.2 mg/dL [facility] moderately hemolyzed [facility] Sodium 130 (L) 136 - 145 meq/L [facility] Potassium 4.2Comment: Specimen 3.5 - 5.1 meq/L [facility] moderately hemolyzed [facility] Chloride 96 (L) 98 - 107 meq/L [facility] CO2 24 22 - 29 meq/L [facility] BUN 6 (L) 7 - 21 mg/dL [facility] Creatinine 0.67Comment: Specimen 0.57 - 1.25 mg/dL [facility] moderately hemolyzed [facility] Glucose 152 (H) 70 - 105 mg/dL [facility] Calcium 9.0 8.4 - 10.2 mg/dL [facility] AST 44 (H)Comment: Specimen 5 - 34 U/L [facility] moderately hemolyzed [facility] ALT 27Comment: Specimen 6 - 55 U/L [facility] moderately hemolyzed [facility] EGFR 88Comment: ESTIMATED GFR mL/min/1.73 sq m [facility] IS NOT ACCURATE [facility] CREATININE CLEARANCE IN PREDICTING GLOMERULAR FILTRATION RATE. ESTIMATED GFR IS NOT APPLICABLE FOR DIALYSIS PATIENTS. Specimen Blood Performing Organization Address City/State/Zipcode Phone Number [facility] [address] [place] [address] [phone] CENTER after 05/25/2017 Insurance Payer Benefit Plan / Subscriber ID Type Phone Address Group [employer] - MEDICARE [employer] MEDICARE O xxxxxxxx [phone] [address] [place] [address]
--- OUTSIDE RECORDS SUMMARY | 2018-05-26 09:47 | XMS REPORT | Continuity of Care Document ---
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 01/15/2017 auto sup> immune [facility] Motility Active Problem 01/15/2017 [facility] Rheumatoid Active Problem 01/15/2017 arthritis [facility] Anxiety Resolved Problem 01/15/2017 [facility] HTN (<span Resolved Problem 01/15/2017 ID="[id number]" [facility] >Confirmed</span> ) Neuropathy Resolved Problem 01/15/2017 [facility] Osteoarthritis Active Problem 01/15/2017 [facility] UNILATERAL Active PRIMARY [facility] OSTEOARTHRITIS, RIGHT Medications Medication Details Route Status Patient Ordering Order Source Instructions Provider Date Acetaminophen 325 1 tab, PO, Active MG / Hydrocodone Q4H, PRN for 2016 [facility] Bitartrate 10 MG pain, X 14 Oral Tablet [Tilden day, # 84 tab, ] 0 Refill(s), called to pharmacy Cephalexin 500 MG 500 mg=1 cap, Active Oral Capsule PO, BID, X 10 2016 [facility] [Keflex] day, # 20 cap, 0 Refill(s), called to pharmacy 0.3 ML Enoxaparin 30 mg, SUB-Q, Active sodium 100 MG/ML Q12H, X 7 day, 2017 [facility] Prefilled Syringe # 14 syr, 0 [Lovenox] Refill(s), called to pharmacy escitalopram 20 mg 40 mg=2 tab, Active oral tablet PO, Bedtime, 0 2016 [facility] Refill(s) cetirizine 5 mg 5 mg=1 tab, Active oral tablet PO, Daily, 0 2016 [facility] Refill(s) Dilaudid 0.2 mg, Route: Inactive IVP, Q15Min, 2016 [facility] Dosing Weight 84.091, kg, PRN Pain Score 7-10, Start date: 01/11/17 12:48:00 CDT, Duration: 30 day, Stop date: 02/10/17 12:47:00 CDT Furosemide 40 mg, 1 tab, No Longer Route: PO, Active 2016 [facility] Drug form: TAB, Daily, Dosing Weight 84.091, kg, Start date: 01/11/17 9:00:00 CDT, Duration: 30 day, Stop date: 02/09/17 9:00:00 CDTNotes: (Same as: Lasix) May cause GI upset. Give with food or milk. Omeprazole 40 mg, Route: No Longer PO, Daily, Active 2016 [facility] Dosing Weight 84.091, kg, Start date: 01/11/17 9:00:00 CDT, Duration: 30 day, Stop date: 02/09/17 9:00:00 CDT Zyrtec 5 mg, Route: No Longer PO, Daily, Active 2016 [facility] Dosing Weight 84.091, kg, Start date: 01/11/17 9:00:00 CDT, Duration: 30 day, Stop date: 02/09/17 9:00:00 CDT Provigil 200 mg, 1 tab, No Longer Route: PO, Active 2016 [facility] Drug form: TAB, QAM, Dosing Weight 84.091, kg, Start date: 01/11/17 9:00:00 CDT, Duration: 30 day, Stop date: 02/09/17 9:00:00 CDTNotes: (Same as:Provigil) Lovenox 30 mg, 0.3 mL, No Longer Route: SUB-Q, Active 2016 [facility] Drug form: INJ, [id number], Start date: 01/11/17 8:00:00 CDT, Duration: 30 day, Stop date: 02/09/17 20:00:00 CDTNotes: (Same as: Lovenox) Potassium Chloride 20 mEq, 1 tab, No Longer Route: PO, Active 2016 [facility] Drug form: ERTAB, Breakfast, Dosing Weight 84.091, kg, Start date: 01/11/17 8:00:00 CDT, Duration: 30 day, Stop date: 02/09/17 8:00:00 CDTNotes: (Same as: K-Dur 20) "Do Not Crush" With food and full glass of water Xanax 1 mg, 1 tab, Inactive Route: PO, 2016 [facility] Drug form: TAB, ONCE, Start date: 01/10/17 21:45:00 CDT, Stop date: 01/10/17 21:45:00 CDTNotes: With food or milk (Same as: Xanax) Lexapro 40 mg, 2 tab, No Longer Route: PO, Active 2016 [facility] Drug form: TAB, Bedtime, Dosing Weight 84.091, kg, Start date: 01/10/17 21:00:00 CDT, Duration: 30 day, Stop date: 02/08/17 21:00:00 CDTNotes: (Same as: Lexapro) senna 8.6 mg oral 8.6 mg, 1 tab, No Longer tablet Route: PO, Active 2016 [facility] Drug Form: TAB, Dosing Weight 84.091, kg, Bedtime, Start date: 01/10/17 21:00:00 CDT, Duration: 30 day, Stop date: 02/08/17 21:00:00 CDTNotes: (Same as: Senokot) Losartan 25 mg, 1 tab, No Longer Route: PO, Active 2016 [facility] Drug form: TAB, Bedtime, Dosing Weight 84.091, kg, Start date: 01/10/17 21:00:00 CDT, Duration: 30 day, Stop date: 02/08/17 21:00:00 CDTNotes: (Same as: Cozaar) Zyrtec 5 mg, 1 tab, No Longer Route: PO, Active 2016 [facility] Drug form: TAB, Daily, Dosing Weight 84.091, kg, Start date: 01/10/17 21:00:00 CDT, Duration: 30 day, Stop date: 02/08/17 21:00:00 CDTNotes: (Same As: Zyrtec) famotidine 20 mg, 1 tab, No Longer Route: PO, Active 2016 [facility] Drug form: TAB, Q12H, Start date: 01/10/17 21:00:00 CDT, Duration: 30 day, Stop date: 02/09/17 9:00:00 CDTNotes: (Same as: Pepcid) Protonix 40 mg, 1 tab, No Longer Route: PO, Active 2016 [facility] Drug form: ECTAB, Daily, Start date: 01/10/17 21:00:00 CDT, Duration: 30 day, Stop date: 02/08/17 21:00:00 CDTNotes: Tablet should not be chewed or crushed. (Same as: Protonix) zolpidem 5 mg, 1 tab, No Longer Route: PO, 2016 [facility] Drug form: TAB, Bedtime, Dosing Weight 84.091, kg, PRN Insomnia, Start date: 01/10/17 20:43:00 CDT, Duration: 30 day, Stop date: 02/09/17 20:42:00 CDTNotes: (Same As: Ambien) Sodium Chloride 250 mL, Route: No Longer 0.9% IV IVPB, Start Active 2016 [facility] date: 01/10/17 20:02:00 CDT, Duration: 30 day, Stop date: 02/09/17 20:01:00 CDT, PRN Line Flush BD Normal Saline 10 mL, Route: No Longer Flush IVP, Drug Active 2016 [facility] Form: INJ, PRN, PRN Line Flush, Start date: 01/10/17 20:02:00 CDT, Duration: 30 day, Stop date: 02/09/17 20:01:00 CDTNotes: (Same as: BD Posiflush) Docusate Sodium 100 mg, 1 cap, No Longer 100 MG Oral Route: PO, Active 2016 [facility] Capsule [Colace] Drug form: CAP, BID, Dosing Weight 84.091, kg, Start date: 01/10/17 17:00:00 CDT, Duration: 30 day, Stop date: 02/09/17 9:00:00 CDTNotes: (Same as: Colace) (Do Not Crush) Alprazolam 0.5 MG 0.5 mg, 0.5 No Longer Oral Tablet tab, Route: Active 2016 [facility] [Xanax] PO, Drug form: TAB, TID, Dosing Weight 84.091, kg, Start date: 01/10/17 17:00:00 CDT, Duration: 30 day, Stop date: 02/09/17 13:00:00 CDTNotes: With food or milk (Same as: Xanax) Hyoscyamine 0.125 mg, 1 No Longer tab, Route: Active 2016 [facility] PO, Drug form: TAB, TID, Dosing Weight 84.091, kg, Start date: 01/10/17 17:00:00 CDT, Duration: 30 day, Stop date: 02/09/17 13:00:00 CDTNotes: (Same as: Levsin) Take 30 min before meal Metformin 500 mg, 1 tab, No Longer hydrochloride 500 Route: PO, Active 2016 [facility] Oral Tablet Drug form: TAB, BID-Meals, Dosing Weight 84.091, kg, Start date: 01/10/17 17:00:00 CDT, Duration: 30 day, Stop date: 02/09/17 8:00:00 CDTNotes: (Same as: Glucophage) Take with meal Zantac 150 mg, Route: Inactive PO, BID, 2016 [facility] Dosing Weight 84.091, kg, Start date: 01/10/17 17:00:00 CDT, Duration: 30 day, Stop date: 02/09/17 9:00:00 CDT gabapentin 100 mg, Route: Inactive PO, TID, 2016 [facility] Dosing Weight 84.091, kg, Start date: 01/10/17 17:00:00 CDT, Duration: 30 day, Stop date: 02/09/17 13:00:00 CDT Reglan 10 mg, 2 tab, No Longer Route: PO, Active 2016 [facility] Drug form: TAB, QID-Before Meals, Dosing Weight 84.091, kg, Start date: 01/10/17 16:30:00 CDT, Duration: 30 day, Stop date: 02/09/17 11:30:00 CDTNotes: (Same as: Reglan) Take 30 min before meals ceFAZolin 2 gm, 100 mL, No Longer Route: IVPB, Active 2016 [facility] Drug form: INJ, Q8H, Start date: 01/10/17 16:00:00 CDT, Duration: 3 doses or times, Stop date: 01/11/17 8:00:00 CDT, ABX Indication: Surgical ProphylaxisNot es: Same as: Ancef glucagon 1 mg, Route: No Longer IM, Drug form: Active 2016 [facility] PDR/INJ, PRN, PRN Blood Glucose Results, Start date: 01/10/17 14:49:00 CDT, Duration: 30 day, Stop date: 02/09/17 14:48:00 CDT Dextrose 50% in 25 mL, Route: No Longer Water IV IVP, Start Active 2016 [facility] date: 01/10/17 14:48:00 CDT, Duration: 30 day, Stop date: 02/09/17 14:47:00 CDT, PRN Blood Glucose Results Dextrose 50% in 50 mL, Route: No Longer Water IV IVP, Start Active 2016 [facility] date: 01/10/17 14:47:00 CDT, Duration: 30 day, Stop date: 02/09/17 14:46:00 CDT, PRN Blood Glucose Results Humalog 6 unit, 0.06 No Longer mL, Route: Active 2016 [facility] SUB-Q, Drug form: SOLN, QID-Before Meals, PRN Blood Glucose Results, Start date: 01/10/17 14:46:00 CDT, Duration: 30 day, Stop date: 02/09/17 14:45:00 CDTNotes: Roll in palms of hands gently; Do not shake `vigorously. (Same as: Humalog ) "Single Patient Use Only " WASTE: F/P - Black; E - Municipal Trash Bin Stable for 28 days at room temperature. Expires in days from Date Humalog 5 unit, 0.05 No Longer mL, Route: Active 2016 [facility] SUB-Q, Drug form: SOLN, QID-Before Meals, PRN Blood Glucose Results, Start date: 01/10/17 14:45:00 CDT, Duration: 30 day, Stop date: 02/09/17 14:44:00 CDTNotes: Roll in palms of hands gently; Do not shake `vigorously. (Same as: Humalog ) "Single Patient Use Only " WASTE: F/P - Black; E - Municipal Trash Bin Stable for 28 days at room temperature. Expires in days from Date Humalog 4 unit, 0.04 No Longer mL, Route: Active 2016 [facility] SUB-Q, Drug form: SOLN, QID-Before Meals, PRN Blood Glucose Results, Start date: 01/10/17 14:44:00 CDT, Duration: 30 day, Stop date: 02/09/17 14:43:00 CDTNotes: Roll in palms of hands gently; Do not shake `vigorously. (Same as: Humalog ) "Single Patient Use Only " WASTE: F/P - Black; E - Municipal Trash Bin Stable for 28 days at room temperature. Expires in days from Date Zofran 4 mg, 1 tab, No Longer Route: PO, Active 2016 [facility] Drug form: TAB, Q8H, Dosing Weight 84.091, kg, PRN as needed for nausea/vomitin g, Start date: 01/10/17 14:24:00 CDT, Duration: 30 day, Stop date: 02/09/17 14:23:00 CDTNotes: (Same as: Zofran) Melatonin 5 mg, 1 tab, No Longer Route: PO, Active 2016 [facility] Drug form: TAB, Bedtime, Dosing Weight 84.091, kg, PRN Insomnia, Start date: 01/10/17 14:24:00 CDT, Duration: 30 day, Stop date: 02/09/17 14:23:00 CDTNotes: (Same as: Melatonin) Guaifenesin 400 mg, 2 tab, No Longer Route: PO, Active 2016 [facility] Drug form: TAB, BID, Dosing Weight 84.091, kg, PRN Cough/Congesti on, Start date: 01/10/17 14:23:00 CDT, Duration: 30 day, Stop date: 02/09/17 14:22:00 CDTNotes: (Same as: Organidin NR) Adderall 10 mg, Route: No Longer PO, Drug form: Active 2016 [facility] TAB, BID, Dosing Weight 84.091, kg, PRN Agitation, Start date: 01/10/17 14:22:00 CDT, Duration: 30 day, Stop date: 02/09/17 14:21:00 CDT gabapentin 100 mg, 1 cap, No Longer Route: PO, Active 2016 [facility] Drug form: CAP, Q8Hnow, Dosing Weight 84.091, kg, Start date: 01/10/17 14:00:00 CDT, Duration: 30 day, Stop date: 02/09/17 6:00:00 CDTNotes: (Same as: Neurontin) Acetaminophen 1,000 mg, 2 No Longer tab, Route: Active 2016 [facility] PO, Drug form: TAB, Q6Hnow, Dosing Weight 84.091, kg, Start date: 01/10/17 13:00:00 CDT, Duration: 30 day, Stop date: 02/09/17 7:00:00 CDTNotes: Max acetaminophen 4000 mg/day (4 gm/day). (Same as: Tylenol Extra Strength) Guaifenesin 400 mg, PO, Active BID, PRN 2016 [facility] Cough/Congesti on, 0 Refill(s) Amphetamine 10 mg=1 tab, Active aspartate 2.5 MG / PO, BID, PRN 2016 [facility] Amphetamine Agitation, # Sulfate 2.5 MG / 60 tab, 0 Dextroamphetamine Refill(s) saccharate 2.5 MG / Dextroamphetamine Sulfate 2.5 MG Oral Tablet [Adderall] melatonin 5 mg 5 mg=1 tab, Active oral tablet PO, Bedtime, 2016 [facility] PRN for insomnia, # 60 tab, 0 Refill(s) Adderall PO, BID, 0 Active Refill(s) 2017 [facility] hyoscyamine 0.125 0.125 mg=1 Active mg oral tablet tab, PO, TID, 2017 [facility] 0 Refill(s) levocetirizine 5 5 mg=1 tab, Active mg oral tablet PO, QPM, # 30 2017 [facility] tab, 1 Refill(s) Oxycodone 5 mg, 1 tab, No Longer Hydrochloride 5 MG Route: PO, Active 2016 [facility] Oral Tablet Drug form: TAB, Q4H, Dosing Weight 84.091, kg, PRN Pain Score 4-6, Start date: 01/10/17 12:03:00 CDT, Duration: 30 day, Stop date: 02/09/17 12:02:00 CDTNotes: (Same as: Roxicodone) Morphine 2 mg, 1 mL, No Longer Route: IVP, Active 2016 [facility] Drug form: INJ, Q4H, Dosing Weight 84.091, kg, PRN Pain Score 7-10, Start date: 01/10/17 12:03:00 CDT, Duration: 30 day, Stop date: 02/09/17 12:02:00 CDTNotes: (Same as:MORPhine Sulfate) Hydromorphone 0.3 mg, 0.3 No Longer mL, Route: Active 2016 [facility] IVP, Drug form: INJ, Q4H, Dosing Weight 84.091, kg, PRN Pain Score 7-10, Start date: 01/10/17 12:03:00 CDT, Duration: 30 day, Stop date: 02/09/17 12:02:00 CDT Ondansetron 4 mg, 2 mL, No Longer Route: IVP, Active 2016 [facility] Drug form: INJ, Q8H, Dosing Weight 84.091, kg, PRN Nausea & Vomiting, Start date: 01/10/17 12:03:00 CDT, Duration: 30 day, Stop date: 02/09/17 12:02:00 CDTNotes: (Same as: Zofran) MEDICATION WASTE Product Size: 4 mg Product Wasted: ___ mg Cefazolin 1 gm, Route: Inactive IVPB, Drug 2016 [facility] form: INJ, Q6H, Dosing Weight 84.091, kg, Start date: 01/10/17 12:00:00 CDT, Duration: 3 doses or times, Stop date: 01/11/17 0:00:00 CDT, ABX Indication: Surgical Prophylaxis Zofran 4 mg, Route: Inactive IVP, Drug 2016 [facility] form: INJ, ONCE, Dosing Weight 84.091, kg, Start date: 01/10/17 11:16:00 CDT, Stop date: 01/10/17 11:16:00 CDT Morphine 2 mg, Route: Inactive IVP, ONCE, 2016 [facility] Dosing Weight 84.091, kg, Start date: 01/10/17 11:09:00 CDT, Stop date: 01/10/17 11:09:00 CDT Ondansetron 0.8 4 mg, 5 mL, Inactive MG/ML Oral Route: IV, 2016 [facility] Solution [Zofran] ONCE, Dosing Weight 84.091, kg, Start date: 01/10/17 11:09:00 CDT, Stop date: 01/10/17 11:09:00 CDT Morphine 2 mg, Route: Inactive IVP, ONCE, 2016 [facility] Dosing Weight 84.091, kg, Start date: 01/10/17 10:55:00 CDT, Stop date: 01/10/17 10:55:00 CDT ropivacaine Route: NERVE No Longer BLOCK, Active 2016 [facility] Continuous Rate: 10, ml/hr, Side: Right Dosing Site: Femoral, [employer] dose 5 mL, [employer] dose lockout: 30 minutes, 1 Hour limit: 20 mL, 200, mL, Start date: 01/10/17 10:13:00 CDT, Duration: 30, day, Drug Form: INJ, Total volume: 200, mL, k...Notes: Same as: Naropin ondansetron (ANES) Route: IV, Inactive Drug form: 2016 [facility] INJ, ONCE, Stop date: 01/10/17 10:09:00 CDT dexamethasone Route: IV, Inactive (ANES) Drug form: 2016 [facility] INJ, ONCE, Stop date: 01/10/17 8:42:00 CDT rocuronium (ANES) Route: IV, Inactive Drug form: 2016 [facility] INJ, ONCE, Stop date: 01/10/17 8:42:00 CDT fentaNYL (ANES) Route: IV, Inactive Drug form: 2016 [facility] INJ, ONCE, Stop date: 01/10/17 8:42:00 CDT propofol (ANES) Route: IV, Inactive Drug form: 2016 [facility] INJ, ONCE, Stop date: 01/10/17 8:42:00 CDT lidocaine (ANES) Route: IV, Inactive Drug form: 2016 [facility] INJ, ONCE, Stop date: 01/10/17 8:27:00 CDT succinylcholine Route: IV, Inactive (ANES) Drug form: 2016 [facility] INJ, ONCE, Stop date: 01/10/17 8:27:00 CDT ceFAZolin (ANES) Route: IV, Inactive Drug form: 2016 [facility] INJ, ONCE, Stop date: 01/10/17 8:27:00 CDT Enoxaparin 30 mg, Route: Inactive SUB-Q, Drug 2016 [facility] form: INJ, [id number], Dosing Weight 84.091, kg, Start date: 01/10/17 8:00:00 CDT, Duration: 30 day, Stop date: 02/08/17 20:00:00 CDT Isolyte S (PH 7.4) Route: IV, Inactive 1000 mL (ANES) Total Volume: 2016 [facility] 1,000, Start date: 01/10/17 7:45:00 CDT, Stop date: 01/10/17 8:45:00 CDT sodium chloride 1,000 mL, No Longer 0.45% 1000 ml INJ Rate: 75 Active 2016 [facility] 1,000 mL ml/hr, Infuse over: 13.3 hr, Route: IV, Dosing Weight 84.091 kg, Total Volume: 1,000, Start date: 01/10/17 7:19:00 CDT, Duration: 30 day, Stop date: 02/09/17 7:18:00 CDT gabapentin 300 mg, 1 cap, Inactive Route: PO, 2016 [facility] Drug form: CAP, ONCE, Dosing Weight 84.091, kg, Start date: 01/10/17 5:32:00 CDT, Stop date: 01/10/17 5:32:00 CDTNotes: (Same as: Neurontin) Kytril 0.1 mg, 0.1 Inactive mL, Route: 2015 [facility] IVP, Drug form: INJ, ONCE, Dosing Weight 86.364, kg, Start date: 05/30/15 10:48:00, Stop date: 05/30/15 10:48:00Notes: Same as: Kytril Non Formulary MEDICATION WASTE Product Size: 1 mg Product Wasted: ___ mg Promethazine 12.5 mg, Inactive Route: IM, 2015 [facility] ONCE, Dosing Weight 86.364, kg, Start date: 05/30/15 10:48:00, Stop date: 05/30/15 10:48:00 Fentanyl 25 microgram, Inactive 0.5 mL, Route: 2015 [facility] IVP, Drug form: INJ, Q5Min, Dosing Weight 86.364, kg, PRN Pain Score 4-6, Start date: 05/30/15 6:47:00, Duration: 4 doses or times, Stop date: Limited # of timesNotes: (Same as: Sublimaze) Preservative free. Morphine 4 mg, 1 mL, Inactive Route: IVP, 2015 [facility] Drug form: INJ, Q5Min, Dosing Weight 86.364, kg, PRN Pain Score 7-10, Start date: 05/30/15 6:47:00, Duration: 3 doses or times, Stop date: Limited # of timesNotes: (Same as:MORPhine Sulfate) Flumazenil 0.2 mg, 2 mL, Inactive Route: IVP, 2015 [facility] Drug form: INJ, PRN, Dosing Weight 86.364, kg, PRN Benzodiazepine Reversal, Initial dose, Start date: 05/30/15 6:47:00, Duration: 30 day, Stop date: 06/29/15 6:46:00Notes: (Same as: Romazicon) Naloxone 0.04 mg, 0.1 Inactive mL, Route: 2015 [facility] IVP, Drug form: INJ, Q2MIN, Dosing Weight 86.364, kg, PRN Narcotic Reversal, Start date: 05/30/15 6:47:00, Duration: 8 doses or times, Stop date: Limited # of timesNotes: Same as Narcan Ondansetron 4 mg, 2 mL, Inactive Route: IVP, 2015 [facility] Drug form: INJ, ONCE, Dosing Weight 86.364, kg, PRN Nausea & Vomiting, Start date: 05/30/15 6:47:00Notes: (Same as: Zofran) MEDICATION WASTE Product Size: 4 mg Product Wasted: ___ mg Calcium Chloride 1,000 mL, Inactive 0.0014 MEQ/ML / Rate: 125 2015 [facility] Potassium Chloride ml/hr, Infuse 0.004 MEQ/ML / over: 8 hr, Sodium Chloride Route: IV, 0.103 MEQ/ML / Dosing Weight Sodium Lactate 86.364 kg, 0.028 MEQ/ML Total Volume: Injectable 1,000, Start Solution date: 05/30/15 6:47:00, Duration: 30 day, Stop date: 06/29/15 6:46:00 Acetaminophen 1,000 mg, 100 Inactive mL, Route: 2015 [facility] IVPB, Drug form: INJ, ONCE, Dosing Weight 86.364, kg, PRN Pain Score 1-3, Start date: 05/30/15 6:47:00, Duration: 1 doses or times, Stop date: Limited # of timesNotes: Infuse over 15 minutes Do not exceed 4gm/day of acetaminophen MEDICATION WASTE Product Size: 1000 mg Product Wasted: ___ mg Calcium Chloride 1,000 mL, Inactive 0.0014 MEQ/ML / Rate: 25 2015 [facility] Potassium Chloride ml/hr, Infuse 0.004 MEQ/ML / over: 40 hr, Sodium Chloride Route: IV, 0.103 MEQ/ML / Dosing Weight Sodium Lactate 86.364 kg, 0.028 MEQ/ML Total Volume: Injectable 1,000, Start Solution date: 05/30/15 6:46:00, Duration: 30 day, Stop date: 06/29/15 6:45:00 Insulin, Aspart, 10 unit, 0.1 Inactive Human mL, Route: 2014 [facility] SUB-Q, Drug form: SOLN, Sliding Scale, Dosing Weight 86.364, kg, PRN Blood Glucose Results, Start date: 02/28/15 11:44:00, Duration: 30 day, Stop date: 03/30/15 11:43:00Notes: Roll in palms of hands gently; Do not shake vigorously. (Same as: NovoLOG) "single patient use only" Stable for 28 days at room temperature. Expires in days from Date Ondansetron 4 mg, 2 mL, Inactive Route: IV2014 [facility] Drug form: INJ, ONCE, Dosing Weight 86.364, kg, PRN Nausea & Vomiting, Start date: 02/28/15 11:44:00Notes: (Same as: Patsy) MEDICATION WASTE Product Size: 4 mg Product Wasted: ___ mg Labetalol 10 mg, 2 mL, Inactive Route: IVP2014 [facility] Drug form: INJ, Q5Min, Dosing Weight 86.364, kg, PRN Elevated BP, Start date: 02/28/15 11:44:00, Duration: 5 doses or times, Stop date: Limited # of timesNotes: (Same as: Normodyne, Trandate) Push over 2 minutes Give bolus over 2-3 minutes. Calcium Chloride 1,000 mL, Inactive 0.0014 MEQ/ML / Rate: 125 2014 [facility] Potassium Chloride ml/hr, Infuse 0.004 MEQ/ML / over: 8 hr, Sodium Chloride Route: IV, 0.103 MEQ/ML / Dosing Weight Sodium Lactate 86.364 kg, 0.028 MEQ/ML Total Volume: Injectable 1,000, Start Solution date: 02/28/15 11:44:00, Duration: 30 day, Stop date: 03/30/15 11:43:00 Morphine 2 mg, 1 mL, Inactive Route: IVP2014 [facility] Drug form: INJ, Q5Min, Dosing Weight 86.364, kg, PRN Pain Score 4-6, Start date: 02/28/15 11:44:00, Duration: 5 doses or times, Stop date: Limited # of timesNotes: (Same as:MORPhine Sulfate) Meperidine 12.5 mg, 0.25 Inactive mL, Route: 2014 [facility] IVP, Drug form: INJ, Q30Min, Dosing Weight 86.364, kg, PRN Other -See Comment, For shivering, Start date: 02/28/15 11:44:00, Duration: 2 doses or times, Stop date: Limited # of timesNotes: (Same As: Demerol) Flumazenil 0.2 mg, 2 mL, Inactive Route: IVP2014 [facility] Drug form: INJ, PRN, Dosing Weight 86.364, kg, PRN Benzodiazepine Reversal, Initial dose, Start date: 02/28/15 11:44:00, Duration: 30 day, Stop date: 03/30/15 11:43:00Notes: (Same as: Romazicon) Naloxone 0.04 mg, 0.1 Inactive mL, Route: 2014 [facility] IVP, Drug form: INJ, Q2MIN, Dosing Weight 86.364, kg, PRN Narcotic Reversal, Start date: 02/28/15 11:44:00, Duration: 8 doses or times, Stop date: Limited # of timesNotes: (Same as: Narcan) Imuran 100 mg, PO, Active Daily 2014 [facility] Provigil 200 mg, PO, Active QAM 2014 [facility] Zantac 300 mg, PO, Active Daily 2014 [facility] Omeprazole 40 mg, PO, Active Daily 2014 [facility] Losartan 25 mg, PO, Active Bedtime 2014 [facility] Zyrtec 5 mg, PO, Active Daily 2014 [facility] Furosemide 40 mg, PO, Active Daily 2014 [facility] Lexapro 40 mg, PO, Active Daily 2014 [facility] Reglan 10 mg, PO, Active QID-Before 2014 [facility] Meals Tramadol 50 mg, PO, Active Q4-6H, PRN 2014 [facility] Pain potassium chloride 20 mEq, PO, Active Daily, 0 2014 [facility] Refill(s) Xanax 0.25 mg, PO, Active TID 2014 [facility] Zofran 4 mg, PO, Q8H, Active PRN as needed 2014 [facility] for nausea/vomitin g Benadryl 25 mg, PO, Active Bedtime 2014 [facility] Mucinex 600 mg, PO, Active Q12H 2014 [facility] Allergies, Adverse Reactions, Alerts Substance Category Reaction Severity Reaction Status Date Comments Source type Reported Bactrim Assertion Drug Active allergy [facility] codeine Assertion Drug Active sulfate allergy [facility] NKFA Assertion Drug Active allergy [facility] Immunizations Immunization Date Given Site Status Last Updated Comments Source Results Order Name Results Value Reference Date Interpretation Comments Source Range HEMATOLOGY Platelet 157 K/CMM 133 - 450 01/12 [facility] HEMATOLOGY Hct 26.3 % 36.0 - 01/12 48.0 [facility] HEMATOLOGY Hgb 9.2 g/dL 12.0 - 01/12 16.0 [facility] CHEM PANEL eGFR 96 01/11 Result Comment: The eGFR is calculated using the CKD-EPI formula. In most young, healthy individuals the eGFR will be >90 mL/ min/1.73m2. The eGFR declines with age. An eGFR of 60-89 may be normal in mL/min/1.7 /2016 some populations, particularly the elderly, for whom the CKD-EPI formula has not been extensively validated. Use of the eGFR is not recommended in the following populations: [place] [address] Individuals with unstable creatinine concentrations, including patients and those with serious co-morbid conditions. Patients with extremes in muscle mass or diet. The data above are obtained from the National Kidney Disease Education Program (NKDEP) which additionally recommends that when the eGFR is used in patients with extremes of body mass index for purposes of drug dosing, the eGFR should be multiplied by the estimated BMI. CHEM PANEL CO2 24 meq/L 24 - 32 01/11 [facility] CHEM PANEL Calcium Lvl 8.1 mg/dL 8.5 - 10.5 01/11 [facility] CHEM PANEL Creatinine 0.60 mg/dL 0.50 - 01/11 Lvl 1.40 [facility] CHEM PANEL AGAP 15.0 meq/L 10.0 - 01/11 MH 20.0 /2016 [facility] CHEM PANEL BUN 6 mg/dL 7 - 22 01/11 /2016 [facility] CHEM PANEL Glucose Lvl 131 mg/dL 70 - 99 01/11 [facility] CHEM PANEL Potassium 4.0 meq/L 3.5 - 5.1 01/11 MH Lvl /2017 [facility] CHEM PANEL Sodium Lvl 134 meq/L 135 - 145 01/11 /2016 [facility] CHEM PANEL Chloride Lvl 99 meq/L 95 - 109 01/11 /2016 [facility] HEMATOLOGY INR 1.07 0.85 - 01/11 MH 1.17 [facility] HEMATOLOGY PT 14.1 s 12.0 - 01/11 MH 14.7 [facility] HEMATOLOGY WBC 8.9 K/CMM 3.7 - 10.4 01/11 /2016 [facility] HEMATOLOGY RBC 2.92 M/CMM 4.20 - 01/11 MH 5.40 /2016 [facility] HEMATOLOGY Hgb 8.9 g/dL 12.0 - 01/11 Result MH 16.0 Comment: [facility] Notiffied [facility] HEMATOLOGY MCV 88.3 fL 80.0 - 01/11 MH 98.0 /2016 [facility] HEMATOLOGY Hct 25.8 % 36.0 - 01/11 MH 48.0 /2016 [facility] HEMATOLOGY RDW 15.4 % 11.5 - 01/11 MH 14.5 [facility] HEMATOLOGY MCHC 34.6 g/dL 32.0 - 01/11 MH 36.0 /2016 [facility] HEMATOLOGY Platelet 161 K/CMM 133 - 450 01/11 /2016 [facility] HEMATOLOGY MCH 30.6 pg 27.0 - 01/11 MH 31.0 [facility] HEMATOLOGY MPV 8.5 fL 7.4 - 10.4 01/11 /2016 [facility] HEMATOLOGY Segs-Bands # 5.4 K/CMM 1.5 - 8.1 01/11 /2016 [facility] HEMATOLOGY Lymphocytes 1.8 K/CMM 1.0 - 5.5 01/11 MH # /2016 [facility] HEMATOLOGY Monocytes # 1.6 K/CMM 0.0 - 0.8 01/11 /2016 [facility] HEMATOLOGY Eosinophils 0.1 K/CMM 0.0 - 0.5 01/11 MH # /2016 [facility] HEMATOLOGY Eosinophils 0.6 % 0.0 - 4.0 01/11 /2016 [facility] HEMATOLOGY Basophils 0.4 % 0.0 - 1.0 01/11 [facility] HEMATOLOGY Plt Morph Normal 01/11 [facility] (01/11/17 4:50 AM) HEMATOLOGY RBC Morph Normal 01/11 [facility] (01/11/17 4:50 AM) HEMATOLOGY Segs 61.3 % 45.0 - 01/11 MH 75.0 /2016 [facility] HEMATOLOGY Monocytes 17.5 % 2.0 - 12.0 01/11 [facility] HEMATOLOGY Lymphocytes 20.2 % 20.0 - 01/11 MH 40.0 [facility] ELECTROLYT AGAP 7.8 meq/L 10.0 - 01/10 ES 20.0 [facility] ELECTROLYT eGFR 91 01/10 Result Comment: The eGFR is calculated using the CKD-EPI formula. In most young, healthy individuals the eGFR will be >90 mL/ min/1.73m2. The eGFR declines with age. An eGFR of 60-89 may be normal in ES mL/min/1.7 some populations, particularly the elderly, for whom the CKD-EPI formula has not been extensively validated. Use of the eGFR is not recommended in the following populations: [facility] 3m2 Individuals with unstable creatinine concentrations, including patients and those with serious co-morbid conditions. Patients with extremes in muscle mass or diet. The data above are obtained from the National Kidney Disease Education Program (NKDEP) which additionally recommends that when the eGFR is used in patients with extremes of body mass index for purposes of drug dosing, the eGFR should be multiplied by the estimated BMI. ELECTROLYT Calcium Lvl 8.9 mg/dL 8.5 - 10.5 01/10 [facility] ELECTROLYT CO2 31 meq/L 24 - 32 01/10 [facility] ELECTROLYT Chloride Lvl 97 meq/L 95 - 109 01/10 [facility] ELECTROLYT Potassium 3.8 meq/L 3.5 - 5.1 01/10 ES Lvl [facility] ELECTROLYT Sodium Lvl 132 meq/L 135 - 145 01/10 [facility] ELECTROLYT Glucose Lvl 95 mg/dL 70 - 99 01/10 [facility] ELECTROLYT Creatinine 0.70 mg/dL 0.50 - 01/10 ES Lvl 1.40 /2016 [facility] ELECTROLYT BUN 6 mg/dL 7 - 22 01/10 [facility] HEMATOLOGY RDW 15.4 % 11.5 - 01/10 MH 14.5 /2016 [facility] HEMATOLOGY Platelet 197 K/CMM 133 - 450 01/10 /2016 [facility] HEMATOLOGY WBC 4.7 K/CMM 3.7 - 10.4 01/10 /2016 [facility] HEMATOLOGY MCH 30.4 pg 27.0 - 01/10 MH 31.0 /2016 [facility] HEMATOLOGY MCV 87.3 fL 80.0 - 01/10 MH 98.0 /2016 [facility] HEMATOLOGY Hct 36.9 % 36.0 - 01/10 MH 48.0 /2016 [facility] HEMATOLOGY RBC 4.23 M/CMM 4.20 - 01/10 MH 5.40 /2016 [facility] HEMATOLOGY Hgb 12.9 g/dL 12.0 - 01/10 MH 16.0 [facility] HEMATOLOGY MCHC 34.8 g/dL 32.0 - 01/10 MH 36.0 [facility] HEMATOLOGY MPV 7.9 fL 7.4 - 10.4 01/10 [facility] HEMATOLOGY Eosinophils 6.4 % 0.0 - 4.0 01/10 [facility] HEMATOLOGY Monocytes 20.6 % 2.0 - 12.0 01/10 [facility] HEMATOLOGY Lymphocytes 38.0 % 20.0 - 01/10 MH 40.0 [facility] HEMATOLOGY Segs-Bands # 1.6 K/CMM 1.5 - 8.1 01/10 [facility] HEMATOLOGY Basophils 1.4 % 0.0 - 1.0 01/10 [facility] HEMATOLOGY Eosinophils 0.3 K/CMM 0.0 - 0.5 01/10 MH # /2016 [facility] HEMATOLOGY Lymphocytes 1.8 K/CMM 1.0 - 5.5 01/10 MH # /2016 [facility] HEMATOLOGY Monocytes # 1.0 K/CMM 0.0 - 0.8 01/10 [facility] HEMATOLOGY Basophils # 0.1 K/CMM 0.0 - 0.2 01/10 [facility] HEMATOLOGY Plt Morph Normal 01/10 [facility] (01/10/17 5:38 AM) HEMATOLOGY RBC Morph Normal 01/10 [facility] (01/10/17 5:38 AM) HEMATOLOGY Segs 33.6 % 45.0 - 01/10 MH 75.0 [facility] URINE AND UA Sq Epi None Seen Few 01/10 MH STOOL [facility] (01/10/17 5:38 AM) URINE AND UA Leuk Est Small Negative 01/10 STOOL [facility] *ABN* (01/10/17 5:38 AM) URINE AND UA WBC 1 /HPF 0 - 5 01/10 STOOL [facility] URINE AND UA Nitrite Negative Negative 01/10 STOOL [facility] (01/10/17 5:38 AM) URINE AND UA Bili Negative Negative 01/10 [facility] *NA* (01/10/17 5:38 AM) URINE AND UA Blood Negative Negative 01/10 STOOL [facility] (01/10/17 5:38 AM) URINE AND UA 0.2 EU/dL 0.1 - 1.0 01/10 STOOL Urobilinogen [facility] URINE AND UA Color Yellow Yellow 01/10 [facility] *NA* (01/10/17 5:38 AM) URINE AND UA pH 7.0 5.0 - 8.0 01/10 [facility] URINE AND UA Protein Negative Negative 01/10 [facility] (01/10/17 5:38 AM) URINE AND UA Ketones Negative Negative 01/10 [facility] *NA* (01/10/17 5:38 AM) URINE AND UA Glucose Negative Negative 01/10 [facility] (01/10/17 5:38 AM) URINE AND UA Turbidity Clear Clear 01/10 [facility] (01/10/17 5:38 AM) URINE AND UA Spec Grav <=1.005 <=1.030 01/10 [facility]
*NA*< [facility] br/>( 5:38 AM) Knee 1-2 Knee 1-2 Patient Name: ROSIO LAFLEUR 01/10 - Views Views /2016 - [facility] unilateral unilateral : 1950; Age: 66 years y/o Female DX DX MR: [id number] Read by: Calos Adames MD Dictated Date/time: 01/10/17 12:07 Electronically Signed by: Calos Adames MD 01/10/17 12:08 FINAL REPORT Study: Knee 1-2 Views unilateral DX 01/10/2017 7:19 AM CDT Ordering Physician: MD Justin Taylor MD Clinical Indication: total knee - total knee; Comparison: None Right knee 2 views Status post arthroplasty. Hardware in satisfactory position. Expected postsurgical gastric the soft tissues and joint. SL: [id number] Chest Chest 1view EXAM: Chest x-ray one view (frontal) 01/10 - 1view DX DX /2016 - [facility] HISTORY:Coughing Read by: Paul Garnica MD Dictated Date/time: 01/10/17 06:32 Electronically Signed by: Paul Garnica MD 01/10/17 06:33 FINAL REPORT COMPARISON:None available. FINDINGS: Mediastinum: The cardiomediastinal contours are unremarkable. Lungs and pleura: No focal consolidation, pleural effusion or pneumothorax. The pulmonary vascularity is normal. No acute osseous displaced abnormality is noted. Cholecystectomy clips are noted. IMPRESSION: No radiographic evidence of an acute cardiopulmonary process. SL: [facility] CHEM PANEL POC BUN 7 mg/dL 7 - 05/30 [facility] CHEM PANEL POC 43.0 % 36.0 - 05/30 Hematocrit 48.0 [facility] CHEM PANEL POC Glucose 124 mg/dL 70 - 99 05/30 [facility] CHEM PANEL POC Sodium 132 meq/L 135 - 145 05/30 [facility] CHEM PANEL POC Chloride 93 meq/L 95 - 109 05/30 [facility] CHEM PANEL POC 4.1 meq/L 3.5 - 5.1 05/30 Potassium [facility] CHEM PANEL POC 14.6 g/dL 12.0 - 05/30 Hemoglobin 16.0 [facility] CHEM PANEL POC BUN 9 mg/dL 7 - 02/28 [facility] CHEM PANEL POC Chloride 95 meq/L 95 - 109 02/28 [facility] CHEM PANEL POC 4.9 meq/L 3.5 - 5.1 02/28 Potassium /2014 [facility] CHEM PANEL POC Sodium 133 meq/L 135 - 145 02/28 [facility] CHEM PANEL POC 44.0 % 36.0 - 02/28 Hematocrit 48.0 [facility] CHEM PANEL POC 15.0 g/dL 12.0 - 02/28 Hemoglobin 16.0 [facility] CHEM PANEL POC Glucose 106 mg/dL 70 - 99 02/28 [facility] HEMATOLOGY POC INR 1.0 0.9 - 1.2 02/28 [facility] HEMATOLOGY POC PT 11.9 s 12.0 - 02/28 MH 14.7 /2015 [facility] Vital Signs Vital Sign Value Date Comments Source Heart Rate 86 01/12/2017 [facility] Temperature Oral (F) 98.2 F 01/12/2017 [facility] Respitory Rate 18 01/12/2017 [facility] Systolic (mm Hg) 154 01/12/2017 [facility] Diastolic (mm Hg) 81 01/12/2017 [facility] Respitory Rate 18 01/12/2017 [facility] Systolic (mm Hg) 137 01/12/2017 [facility] Diastolic (mm Hg) 83 01/12/2017 [facility] Temperature Oral (F) 98.6 F 01/12/2017 [facility] Heart Rate 85 01/12/2017 [facility] Heart Rate 94 01/12/2017 [facility] Temperature Oral (F) 99.2 F 01/12/2017 [facility] Systolic (mm Hg) 155 01/12/2017 [facility] Diastolic (mm Hg) 79 01/12/2017 [facility] Respitory Rate 18 01/12/2017 [facility] Weight 84.091 01/10/2017 [facility] BMI Calculated 29.92 01/10/2017 [facility] Height 167.64 cm 01/10/2017 [facility] Height 152.4 cm 01/06/2017 [facility] Weight 84.091 01/06/2017 [facility] BMI Calculated 36.21 01/06/2017 [facility] Systolic (mm Hg) 121 05/30/2015 [facility] Diastolic (mm Hg) 67 05/30/2015 [facility] Respitory Rate 15 05/30/2015 [facility] Systolic (mm Hg) 118 05/30/2015 [facility] Diastolic (mm Hg) 66 05/30/2015 [facility] Respitory Rate 13 05/30/2015 [facility] Respitory Rate 15 05/30/2015 [facility] Systolic (mm Hg) 121 05/30/2015 [facility] Diastolic (mm Hg) 56 05/30/2015 [facility] Height 167.64 cm 05/27/2015 [facility] BMI Calculated 30.73 05/27/2015 [facility] Weight 86.364 05/27/2015 [facility] Systolic (mm Hg) 143 02/28/2015 [facility] Diastolic (mm Hg) 79 02/28/2015 [facility] Systolic (mm Hg) 145 02/28/2015 [facility] Diastolic (mm Hg) 84 02/28/2015 [facility] Respitory Rate 15 02/28/2015 [facility] Systolic (mm Hg) 140 02/28/2015 [facility] Diastolic (mm Hg) 78 02/28/2015 [facility] Respitory Rate 17 02/28/2015 [facility] Respitory Rate 19 02/28/2015 [facility] Heart Rate 57 02/28/2015 [facility] BMI Calculated 30.73 02/26/2015 [facility] Weight 86.364 02/26/2015 [facility] Height 167.64 cm 02/26/2015 [facility] Encounters Location Location Encounter Encounter Reason Attending ADM DC Status Source Details Type Number For Provider Date Date Visit [facility] OBS Day [id number] Justin 02/28 02/28 [facility] [place] /2014 [facility] OBS Day [id number] C[place]illa 05/30 05/30 [facility] [place] /2015 [facility] Inpatient [id number] Cascilla 01/10 01/12 [facility] [place] /2016 [facility] Procedures Procedure Code Date Perfomer Comments Source TKR -Total [id number] [facility] prosthetic 7 replacement of knee joint using cement Cholecystectomy [id number] [facility] Hysterectomy [id number] [facility] Procedure<sup>1</sup [id number] arthroscopy of [facility] > knee x2 Procedure<sup>2</sup [id number] open knee [facility] > surgery Rotator cuff [id number] right [facility] repair<sup>3</sup>
--- OUTSIDE RECORDS SUMMARY | 2018-05-26 09:48 | XMS REPORT ---
:1950 Author Organization [facility] Address [address] [place], [place] [address]amena Clayton [address] [place] [address] Care Team Providers Name Role Phone ELDER RONDON Unavailable Unavailable SIVA CAPPS Unavailable Unavailable SPRING JOSHI Unavailable Unavailable Problems This patient has no known problems. Allergies, Adverse Reactions, Alerts This patient has no known allergies or adverse reactions. Medications This patient has no known medications. Results Test Description Test Time Test Comments Text Results Atomic Results Result Comments HEPATITIS B SURFACE ANTIBODY 2018-01-26 14:42:00 Test Item Value Reference Range Comments HEPATITIS B SURFACE ANTIBODY (BEAKER) (test srfh=950) < mIU/mL <8.0 HEPATITIS A ANTIBODY, [id number] 14:42:00 Test Item Value Reference Range Comments HEPATITIS A IGG ANTIBODY (BEAKER) (test rxog=4834) Reactive Nonreactive HEPATITIS B SURFACE [id number] 14:23:00 Test Item Value Reference Range Comments HEPATITIS B SURFACE ANTIGEN (2) (BEAKER) (test Nonreactive Nonreactive ukja=1848) HEPATITIS C [id number] 14:23:00 Test Item Value Reference Range Comments HEPATITIS C ANTIBODY (BEAKER) (test zkyf=773) Nonreactive Nonreactive HEPATITIS B CORE ANTIBODY, [id number] 14:23:00 Test Item Value Reference Range Comments HEPATITIS B CORE TOTAL ANTIBODY (BEAKER) (test Nonreactive Nonreactive qouu=533) HEPATIC FUNCTION [id number] 14:04:00 Test Item Value Reference Range Comments TOTAL PROTEIN (BEAKER) (test iwdv=292) 9.0 gm/dL 6.0-8.3 ALBUMIN (BEAKER) (test rcwz=9499) 4.2 g/dL 3.5-5.0 BILIRUBIN TOTAL (BEAKER) (test uihh=189) 0.3 mg/dL 0.2-1.2 BILIRUBIN DIRECT (BEAKER) (test rizw=548) 0.2 mg/dL 0.1-0.5 ALKALINE PHOSPHATASE (BEAKER) (test lcre=515) 111 U/L 40-150 AST (SGOT) (BEAKER) (test ngrg=229) 44 U/L 5-34 ALT (SGPT) (BEAKER) (test zvry=739) 30 U/L 6-55 BASIC METABOLIC [id number] 14:04:00 Test Item Value Reference Range Comments SODIUM (BEAKER) (test 129 meq/L 136-145 tfjt=426) POTASSIUM (BEAKER) (test 4.0 meq/L 3.5-5.1 jjmu=902) CHLORIDE (BEAKER) (test 94 meq/L 98-107 dqxm=975) CO2 (BEAKER) (test 24 meq/L 22-29 lzzf=820) BLOOD UREA NITROGEN 4 mg/dL 7-21 (BEAKER) (test iyup=996) CREATININE (BEAKER) (test 0.67 mg/dL 0.57-1.25 mztz=776) GLUCOSE RANDOM (BEAKER) 98 mg/dL 70-105 (test ytac=546) CALCIUM (BEAKER) (test 9.7 mg/dL 8.4-10.2 fyuw=570) EGFR (BEAKER) (test 88 mL/min/1.73 sq m ESTIMATED GFR IS NOT fmuv=1216) ACCURATE CREATININE CLEARANCE IN PREDICTING GLOMERULAR FILTRATION RATE. ESTIMATED GFR IS NOT APPLICABLE FOR DIALYSIS PATIENTS. PROTHROMBIN [id number] 13:45:00 Test Item Value Reference Range Comments PROTIME (BEAKER) (test fxai=813) 13.4 seconds 11.7-14.7 INR (BEAKER) (test ryzu=468) 1.0 <=5.9 RECOMMENDED COUMADIN/WARFARIN INR THERAPY RANGESSTANDARD DOSE: 2.0 - 3.0 Includes: PROPHYLAXIS forvenous thrombosis, systemic embolization; TREATMENT for venous thrombosis and/or pulmonary embolus.HIGH RISK: Target INR is 2.5-3.5 for patients with mechanical heart valves.CBC W/PLT COUNT & AUTO [id number] 13:31:00 Test Item Value Reference Range Comments WHITE BLOOD CELL COUNT (BEAKER) (test vhcc=324) 5.3 K/ L 3.5-10.5 RED BLOOD CELL COUNT (BEAKER) (test buyh=400) 4.61 M/ L 3.93-5.22 HEMOGLOBIN (BEAKER) (test tnyq=494) 12.8 GM/DL 11.2-15.7 HEMATOCRIT (BEAKER) (test pyik=505) 39.8 % 34.1-44.9 MEAN CORPUSCULAR VOLUME (BEAKER) (test oiod=825) 86.3 fL 79.4-94.8 MEAN CORPUSCULAR HEMOGLOBIN (BEAKER) (test 27.8 pg 25.6-32.2 hxly=875) MEAN CORPUSCULAR HEMOGLOBIN CONC (BEAKER) (test 32.2 GM/DL 32.2-35.5 aqjx=552) RED CELL DISTRIBUTION WIDTH (BEAKER) (test 14.0 % 11.7-14.4 kqzp=340) PLATELET COUNT (BEAKER) (test qptq=623) 316 K/CU MM 150-450 MEAN PLATELET VOLUME (BEAKER) (test uria=751) 9.7 fL 9.4-12.3 NUCLEATED RED BLOOD CELLS (BEAKER) (test 0 /100 WBC 0-0 yzqh=179) NEUTROPHILS RELATIVE PERCENT (BEAKER) (test 62 % evew=163) LYMPHOCYTES RELATIVE PERCENT (BEAKER) (test 22 % utnk=953) MONOCYTES RELATIVE PERCENT (BEAKER) (test 12 % rxny=869) EOSINOPHILS RELATIVE PERCENT (BEAKER) (test 4 % ncsa=578) BASOPHILS RELATIVE PERCENT (BEAKER) (test 1 % rmzy=638) NEUTROPHILS ABSOLUTE COUNT (BEAKER) (test 3.27 K/ L 1.56-6.13 xzmm=648) LYMPHOCYTES ABSOLUTE COUNT (BEAKER) (test 1.14 K/ L 1.18-3.74 stfq=557) MONOCYTES ABSOLUTE COUNT (BEAKER) (test 0.62 K/ L 0.24-0.36 evzc=285) EOSINOPHILS ABSOLUTE COUNT (BEAKER) (test 0.19 K/ L 0.04-0.36 dooo=805) BASOPHILS ABSOLUTE COUNT (BEAKER) (test 0.07 K/ L 0.01-0.08 hbei=587) IMMATURE GRANULOCYTES-RELATIVE PERCENT (BEAKER) 0 % 0-1 (test nboo=2453) COMPREHENSIVE METABOLIC [id number] 12:54:00 Test Item Value Reference Range Comments TOTAL PROTEIN (BEAKER) 8.0 gm/dL 6.0-8.3 Specimen moderately (test tlmm=036) hemolyzed ALBUMIN (BEAKER) (test 3.7 g/dL 3.5-5.0 Specimen moderately oakh=0222) hemolyzed ALKALINE PHOSPHATASE 77 U/L 40-150 (BEAKER) (test etit=232) BILIRUBIN TOTAL (BEAKER) 0.4 mg/dL 0.2-1.2 Specimen moderately (test enir=932) hemolyzed SODIUM (BEAKER) (test 130 meq/L 136-145 qrbg=086) POTASSIUM (BEAKER) (test 4.2 meq/L 3.5-5.1 Specimen moderately tpcc=040) hemolyzed CHLORIDE (BEAKER) (test 96 meq/L 98-107 pxzn=117) CO2 (BEAKER) (test 24 meq/L 22-29 rhwq=081) BLOOD UREA NITROGEN 6 mg/dL 7-21 (BEAKER) (test viqd=675) CREATININE (BEAKER) (test 0.67 mg/dL 0.57-1.25 Specimen moderately ybcx=741) hemolyzed GLUCOSE RANDOM (BEAKER) 152 mg/dL 70-105 (test inzt=037) CALCIUM (BEAKER) (test 9.0 mg/dL 8.4-10.2 hmbp=047) AST (SGOT) (BEAKER) (test 44 U/L 5-34 Specimen moderately fupb=006) hemolyzed ALT (SGPT) (BEAKER) (test 27 U/L 6-55 Specimen moderately asan=171) hemolyzed EGFR (BEAKER) (test 88 mL/min/1.73 sq m ESTIMATED GFR IS NOT lgna=2761) ACCURATE CREATININE CLEARANCE IN PREDICTING GLOMERULAR FILTRATION RATE. ESTIMATED GFR IS NOT APPLICABLE FOR DIALYSIS PATIENTS. CBC W/PLT COUNT & AUTO [id number] 12:23:00 Test Item Value Reference Range Comments WHITE BLOOD CELL COUNT (BEAKER) (test akkj=874) 3.4 K/ L 3.5-10.5 RED BLOOD CELL COUNT (BEAKER) (test milf=448) 4.14 M/ L 3.93-5.22 HEMOGLOBIN (BEAKER) (test ybpy=668) 11.8 GM/DL 11.2-15.7 HEMATOCRIT (BEAKER) (test qejp=708) 36.8 % 34.1-44.9 MEAN CORPUSCULAR VOLUME (BEAKER) (test txne=882) 88.9 fL 79.4-94.8 MEAN CORPUSCULAR HEMOGLOBIN (BEAKER) (test 28.5 pg 25.6-32.2 dkww=804) MEAN CORPUSCULAR HEMOGLOBIN CONC (BEAKER) (test 32.1 GM/DL 32.2-35.5 srvq=939) RED CELL DISTRIBUTION WIDTH (BEAKER) (test 15.5 % 11.7-14.4 etvj=079) PLATELET COUNT (BEAKER) (test smck=695) 303 K/CU MM 150-450 MEAN PLATELET VOLUME (BEAKER) (test rhkm=258) 10.5 fL 9.4-12.3 NUCLEATED RED BLOOD CELLS (BEAKER) (test 0 /100 WBC 0-0 fsxf=720) NEUTROPHILS RELATIVE PERCENT (BEAKER) (test 59 % ielx=299) LYMPHOCYTES RELATIVE PERCENT (BEAKER) (test 22 % yesw=361) MONOCYTES RELATIVE PERCENT (BEAKER) (test 16 % wbyh=614) EOSINOPHILS RELATIVE PERCENT (BEAKER) (test 2 % lfjp=967) BASOPHILS RELATIVE PERCENT (BEAKER) (test 1 % dduh=112) NEUTROPHILS ABSOLUTE COUNT (BEAKER) (test 2.02 K/ L 1.56-6.13 qtmt=363) LYMPHOCYTES ABSOLUTE COUNT (BEAKER) (test 0.73 K/ L 1.18-3.74 pxpt=547) MONOCYTES ABSOLUTE COUNT (BEAKER) (test 0.53 K/ L 0.24-0.36 sgrd=341) EOSINOPHILS ABSOLUTE COUNT (BEAKER) (test 0.07 K/ L 0.04-0.36 qqsh=050) BASOPHILS ABSOLUTE COUNT (BEAKER) (test 0.04 K/ L 0.01-0.08 nqtk=618) IMMATURE GRANULOCYTES-RELATIVE PERCENT (BEAKER) 0 % 0-1 (test vsvz=3302) SEDIMENTATION [id number] 15:52:00 Test Item Value Reference Range Comments SEDIMENTATION RATE, ERYTHROCYTE (BEAKER) (test 48 mm/HR 0-30 pwkh=889) COMPREHENSIVE METABOLIC [id number] 14:48:00 Test Item Value Reference Range Comments TOTAL PROTEIN (BEAKER) 8.3 gm/dL 6.0-8.3 (test iusw=893) ALBUMIN (BEAKER) (test 4.0 g/dL 3.5-5.0 jdgn=2354) ALKALINE PHOSPHATASE 71 U/L 40-150 (BEAKER) (test hktf=599) BILIRUBIN TOTAL (BEAKER) 0.5 mg/dL 0.2-1.2 (test wbsh=472) SODIUM (BEAKER) (test 133 meq/L 136-145 nxtw=556) POTASSIUM (BEAKER) (test 3.4 meq/L 3.5-5.1 mcrm=949) CHLORIDE (BEAKER) (test 95 meq/L 98-107 qryr=170) CO2 (BEAKER) (test 26 meq/L 22-29 vhmw=688) BLOOD UREA NITROGEN 5 mg/dL 7-21 (BEAKER) (test kbdi=399) CREATININE (BEAKER) (test 0.65 mg/dL 0.57-1.25 podo=940) GLUCOSE RANDOM (BEAKER) 130 mg/dL 70-105 (test gkht=089) CALCIUM (BEAKER) (test 9.5 mg/dL 8.4-10.2 nquc=321) AST (SGOT) (BEAKER) (test 31 U/L 5-34 urih=782) ALT (SGPT) (BEAKER) (test 22 U/L 6-55 ttof=508) EGFR (BEAKER) (test 92 mL/min/1.73 sq m ESTIMATED GFR IS NOT swcm=1534) ACCURATE CREATININE CLEARANCE IN PREDICTING GLOMERULAR FILTRATION RATE. ESTIMATED GFR IS NOT APPLICABLE FOR DIALYSIS PATIENTS. CBC W/PLT COUNT & AUTO [id number] 14:36:00 Test Item Value Reference Range Comments WHITE BLOOD CELL COUNT (BEAKER) (test usqi=454) 6.3 K/ L 4.0-10.0 RED BLOOD CELL COUNT (BEAKER) (test gbkf=823) 4.13 M/ L 4.00-5.00 HEMOGLOBIN (BEAKER) (test cnkz=739) 13.4 GM/DL 12.0-15.0 HEMATOCRIT (BEAKER) (test ogzo=940) 38.5 % 36.0-45.0 MEAN CORPUSCULAR VOLUME (BEAKER) (test cdev=977) 93.4 fL 82.0-99.0 MEAN CORPUSCULAR HEMOGLOBIN (BEAKER) (test 32.4 pg 27.0-33.0 okel=780) MEAN CORPUSCULAR HEMOGLOBIN CONC (BEAKER) (test 34.7 GM/DL 32.0-36.0 dqxh=675) RED CELL DISTRIBUTION WIDTH (BEAKER) (test 12.4 % 10.3-14.2 kqzd=815) PLATELET COUNT (BEAKER) (test bsbm=246) 279 K/CU MM 150-430 MEAN PLATELET VOLUME (BEAKER) (test jlft=145) 7.9 fL 6.5-10.5 NUCLEATED RED BLOOD CELLS (BEAKER) (test 0 /100 WBC 0-0 zqjx=951) NEUTROPHILS RELATIVE PERCENT (BEAKER) (test 53 % xbfd=295) LYMPHOCYTES RELATIVE PERCENT (BEAKER) (test 25 % eigp=628) MONOCYTES RELATIVE PERCENT (BEAKER) (test 17 % yvqa=865) EOSINOPHILS RELATIVE PERCENT (BEAKER) (test 4 % ugnn=376) BASOPHILS RELATIVE PERCENT (BEAKER) (test 1 % fzrp=994) NEUTROPHILS ABSOLUTE COUNT (BEAKER) (test 3.36 K/ L 1.80-8.00 cccc=763) LYMPHOCYTES ABSOLUTE COUNT (BEAKER) (test 1.59 K/ L 1.48-4.50 fulq=264) MONOCYTES ABSOLUTE COUNT (BEAKER) (test 1.07 K/ L 0.00-1.30 gsuv=354) EOSINOPHILS ABSOLUTE COUNT (BEAKER) (test 0.24 K/ L 0.00-0.50 ylwq=803) BASOPHILS ABSOLUTE COUNT (BEAKER) (test 0.04 K/ L 0.00-0.20 oxwl=063) 0.00
--- NOTE | 2018-05-26 12:46 | RAD REPORT ---
EXAM DESCRIPTION: US - Breast Core BX w/US Guidance - 05/26/2018 10:36 am CLINICAL HISTORY: N63.20 COMPARISON: Ultrasound May 16, 2018, ultrasound November 2017, mammogram November 2017 TECHNIQUE: The patient presents for ultrasound-guided biopsy of a previously detailed 9 mm mass in t he superficial 6 o'clock left breast. The ultrasound-guided core biopsy procedure, risks and alternatives were discussed with the patient i n detail. After answering all questions, both oral and written consent were obtained. Time out proced ure was performed. The patient had no contraindicated allergy or medication history. The patient was normotensive at the time of the study. Preliminary imaging identified the 9 mm mass. The heterogeneous, predominantly hyperechoic mass is no t well defined. The lower left breast was prepped and draped in the usual sterile fashion. From a lateral approach, s kin and deeper tissues were anesthetized with 1% lidocaine. Under direct sonographic visualization a 14 gauge vacuum assisted core biopsy needle was advanced and placed at the lateral margin of the mass . There were a total of 3 core biopsies obtained under direct sonographic guidance. At the conclusion of the third core biopsy a small hematoma was identified approximately 4 x 1.5 cm i n size. Direct pressure was applied to the breast. After maintaining pressure to the biopsy area the palpable hematoma diminished in size. Ice pack was applied to the breast. Patient was directed to pal mancia the hematoma after completion of the direct pressure. Patient was instructed on ice in compressi on techniques to be utilized over the course of the day. Patient was instructed to contact the depart ment or return to the hospital if the hematoma recurred or continue to enlarge. The hemorrhage at the biopsy site precluded identification of the lesion. Post biopsy localization cl ip was not placed. IMPRESSION: Ultrasound-guided core biopsy was performed of the 6 o'clock left breast mass. There wer e 3 core biopsy samples obtained with all material given to pathology for histologic assessment. Post biopsy hematoma was present. Direct pressure was applied to the breast and hemostasis was obtain ed prior to the patient leaving the department. Ice and compression techniques were detail to the pat ient along with instructions to contact the department or return to the hospital if the hematoma recu rs and continues to enlarge. The 6 o'clock left breast mass was ill-defined and somewhat difficult to biopsy. If the final patholo gy report shows no malignancy or no definitive diagnosis to explain the mass, diagnostic mammography and sonography in 6 months would be recommended to re-evaluate this region.
== END | disposition home or self-care (01) ==
LOC: DS 09:40
PROVIDERS: ATTEND Specialist
DX: N63.0 Unspecified lump in unspecified breast (principal); L76.32 Postprocedural hematoma of skin and subcutaneous tissue following other procedure; Y84.8 Other medical procedures as the cause of abnormal reaction of the patient, or of later complication, without mention of misadventure at the time of the procedure
CPT/HCPCS: 19083; 88305

== ENCOUNTER 2018-08-23 14:19 | Observation (INO) | payer OTHER ==
--- OUTSIDE RECORDS SUMMARY | 2018-08-23 15:06 | XMS REPORT | Clinical Summary ---
:1950 Author Organization [facility] Address [address] [place] [address] Care Team Providers Name Role Phone Kristian [...] 8 tablet mouth 4 (four) times daily. cycloSPORINE 1 drop 2 (two) 0 Active (RESTASIS) 0.05 % times daily. ophthalmic emulsion escitalopram Take 40 mg by 0 01/27/20 [...] times daily. hepatitis (HCC) Hospital, Clinic, or Other Ordered Dose Route Frequency Start Date End Date Status Facility Administered Medication inFLIXimab (REMICADE) 600 mg 600 mg IV Once 03/29/2013 Active in sodium chloride 0.9% (NS) 250 mL IVPBIndications: Rheumatoid arthritis sodium chloride 0.9% (NS) IV Once 01/17/2015 Active infusion sodium chloride 0.9% (NS) IV Once 09/19/2015 Active infusion sodium chloride 0.9% (NS) IV Once 10/17/2015 Active infusion diphenhydrAMINE (BENADRYL) 25 mg Oral Once 11/19/2016 Active capsule 25 mg acetaminophen (TYLENOL) 650 mg Oral Once 11/19/2016 Active tablet 650 mg inFLIXimab (REMICADE) 600 mg 600 mg IV Once 04/01/2017 Active in sodium chloride 0.9% (NS) EXCEL 250 mL IVPB inFLIXimab (REMICADE) 600 mg 600 mg IV Once 05/13/2017 Active in sodium chloride 0.9% (NS) EXCEL 250 mL IVPB Active Problems Problem Noted Date Autoimmune hepatitis [...] Encounters Date Type Specialty Care Team Description 06/08/2018 Office Visit Hepatology Bashir Xiao MD Autoimmune hepatitis treated with steroids (Primary Dx); Marcela Yo, Crohn's disease without complication, unspecified gastrointestinal tract location (HCC); [employer] Rheumatoid arthritis involving shoulder with negative rheumatoid factor, unspecified laterality (HCC); Immunity status testing; Cancer screening 02/10/2018 Orders Only Hepatology Elida Lujan RN Autoimmune hepatitis ( HCC) 02/10/2018 Telephone Transplant Sandrita Loya Refrandell León RN 02/02/2018 Abstract Hepatology Lakisha Casper MA 01/30/2018 Abstract Hepatology Leticia Liriano MA 01/26/2018 Office Visit Hepatology Bashir Xiao MD Autoimmune hepatitis (HCC) (Primary Dx); Immunity status testing; Screening for malignant neoplasm; Autoimmune hepatitis treated with steroids ; Crohn's disease without complication, unspecified gastrointestinal tract location (HCC); Rheumatoid arthritis involving shoulder with negative rheumatoid factor , unspecified laterality (HCC); Cancer screening 12/30/2017 Documentation Hepatology Leticia Liriano MA 12/29/2017 Telephone Hepatology Elana Haines Appointment 12/08/2017 Telephone Hepatology Elana Haines Appointment after 08/22/2017 Family History Medical History Relation Name Comments [...] Vital Sign Reading Time Taken Blood Pressure 145/82 06/08/2018 11:02 AM BLENDING TECHNICIAN Pulse 79 06/08/2018 11:02 AM BLENDING TECHNICIAN Temperature 36.8 C (98.3 F) 06/08/2018 11:02 AM BLENDING TECHNICIAN Respiratory Rate 18 06/08/2018 11:02 AM BLENDING TECHNICIAN Oxygen Saturation 96% 06/08/2018 11:02 AM BLENDING TECHNICIAN Inhaled Oxygen Concentration - - Weight 88.6 kg (195 lb 6.4 oz) 06/08/2018 11:02 AM BLENDING TECHNICIAN Height 165.6 cm (5' 5.2") 06/08/2018 11:02 AM BLENDING TECHNICIAN Body Mass Index 32.32 06/08/2018 11:02 AM BLENDING TECHNICIAN Plan of Treatment Not on file Procedures Procedure Name Priority Date/Time Associated Comments Diagnosis CBC W/PLT COUNT & Routine 01/26/2018 1:01 Autoimmune Results for this AUTO DIFFERENTIAL PM CDT hepatitis (HCC) procedure are [...] the results section. CBC W/PLT COUNT & Routine 01/26/2018 1:01 Autoimmune Results for this AUTO DIFFERENTIAL PM CDT hepatitis (HCC) procedure are in the results section. HEPATIC FUNCTION Routine 01/26/2018 1:01 Autoimmune Results for this PANEL PM CDT hepatitis (HCC) procedure are in the results section. BASIC METABOLIC PANEL Routine 01/26/2018 1:01 Autoimmune Results for this (7) PM CDT hepatitis (HCC) procedure are in the results section. after 08/22/2017 Results Hepatitis A Antibody, IgG ([facility] Only) (01/26/2018 1:01 PM CDT) Hep A IgG Reactive (A) Nonreactive [facility] Specimen Blood Performing Organization Address City/State/Zipcode Phone Number [facility] [address] [place] [address] CENTER CBC with platelet count + automated diff (01/26/2018 1:01 PM CDT) WBC 5.3 3.5 - 10.5 K/L [facility] RBC 4.61 3.93 - 5.22 M/L [facility] Hemoglobin 12.8 11.2 - 15.7 GM/DL [facility] Hematocrit 39.8 34.1 - 44.9 % [facility] MCV 86.3 79.4 - 94.8 fL [facility] MCH 27.8 25.6 - 32.2 pg [facility] MCHC 32.2 32.2 - 35.5 GM/DL [facility] RDW 14.0 11.7 - 14.4 % [facility] Platelets 316 150 - 450 K/CU MM [facility] MPV 9.7 9.4 - 12.3 fL [facility] nRBC 0 0 - 0 /100 WBC [facility] % Neutros 62 % [facility] % Lymphs 22 % [facility] % Monos 12 % [facility] % Eos 4 % [facility] % Baso 1 % [facility] # Neutros 3.27 1.56 - 6.13 K/L [facility] # Lymphs 1.14 (L) 1.18 - 3.74 K/L [facility] # Monos 0.62 (H) 0.24 - 0.36 K/L [facility] # Eos 0.19 0.04 - 0.36 K/L [facility] # Baso 0.07 0.01 - 0.08 K/L [facility] Immature Granulocytes-Relative 0 0 - 1 % [facility] Specimen Blood Performing Organization Address City/State/Zipcode Phone Number [address] [address] CENTER Hepatitis C antibody (01/26/2018 1:01 PM CDT) Hepatitis C Ab NON-REACTIVE Nonreactive [facility] Specimen Blood Performing Organization Address City/[facility]/Zipcode Phone Number [address] [address] [place] Hepatitis B core antibody, total (01/26/2018 1:01 PM CDT) Hep B Core Total Ab NON-REACTIVE Nonreactive [facility] Specimen Blood Performing Organization Address City/[facility] Phone Number [address] [address] CENTER Hepatitis B surface antibody (01/26/2018 1:01 PM CDT) Hep B S Ab <8.0 <8.0 mIU/mL [facility] Specimen Blood Performing Organization Address City/State/Zipcode Phone Number [address] [address] CENTER Hepatitis B surface antigen (01/26/2018 1:01 PM CDT) hepatitis B Surface Ag NON-REACTIVE Nonreactive [facility] Specimen Blood Performing Organization Address City/State/Zipcode Phone Number [address] [address] [phone] CENTER Pro-time/INR (01/26/2018 1:01 PM CDT) Protime 13.4 11.7 - 14.7 seconds [facility] INR 1.0 <=5.9 [facility] Specimen Blood Narrative Performed At [facility] RECOMMENDED COUMADIN/WARFARIN INR THERAPY RANGES STANDARD DOSE: 2.0 - 3.0 Includes: PROPHYLAXIS for venous thrombosis, systemic embolization; TREATMENT for venous thrombosis and/or pulmonary embolus. HIGH RISK: Target INR is 2.5-3.5 for patients with mechanical heart valves. Performing Organization Address [facility] Phone Number [address] [address] [place] Hepatic function panel (01/26/2018 1:01 PM CDT) Protein, Total 9.0 (H) 6.0 - 8.3 gm/dL [facility] Albumin 4.2 3.5 - 5.0 g/dL [facility] Total Bilirubin 0.3 0.2 - 1.2 mg/dL [facility] Bilirubin, Direct 0.2 0.1 - 0.5 mg/dL [facility] Alkaline Phosphatase 111 40 - 150 U/L [facility] AST 44 (H) 5 - 34 U/L [facility] ALT 30 6 - 55 U/L [facility] Specimen Blood Performing Organization Address City/[facility] Phone Number [facility] [address] [place] [address] [phone] [place] Basic Metabolic Panel (01/26/2018 1:01 PM CDT) Sodium 129 (L) 136 - 145 meq/L [facility] Potassium 4.0 3.5 - 5.1 meq/L [facility] Chloride 94 (L) 98 - 107 meq/L [facility] CO2 24 22 - 29 meq/L [facility] BUN 4 (L) 7 - 21 mg/dL [facility] Creatinine 0.67 0.57 - 1.25 mg/dL [facility] Glucose 98 70 - 105 mg/dL [facility] Calcium 9.7 8.4 - 10.2 mg/dL [facility] EGFR 88Comment: ESTIMATED GFR IS mL/min/1.73 sq m [facility] NOT ACCURATE CREATININE [facility] CENTER CLEARANCE IN PREDICTING GLOMERULAR FILTRATION RATE. ESTIMATED GFR IS NOT APPLICABLE FOR DIALYSIS PATIENTS. Specimen Blood Performing Organization Address City/State/Zipcode Phone Number [facility] [address] [place] [address] CENTER after 08/22/2017 Insurance Payer Benefit Plan / Subscriber ID Type Phone Address Group [employer] - MEDICARE A[employer] MEDICARE O xxxxxxxx [phone] [address] [place] [address]
--- OUTSIDE RECORDS SUMMARY | 2018-08-23 15:06 | XMS REPORT | Clinical Summary ---
:1950 Author Organization [facility] Address [address] [place] [address] Care Team Providers Name Role Phone Kristian Torres MD Primary Care Provider Allergies Active Allergy Reactions Severity Noted Date Comments Sulfamethoxazole-Trimethoprim Palpitations Low 10/28/2015 Ciprofloxacin Other (See Comments) 02/12/2016 Bleeding Codeine Itching 02/12/2016 Chest pain Morphine Sulfate Itching 09/07/2012 Medications Medication Sig Dispensed Refills Start End Date Status Date losartan (COZAAR) Take 25 mg by 0 Active 25 MG tablet mouth daily. metFORMIN Take 500 mg by 0 Active (GLUCOPHAGE) 500 MG mouth 2 (two) tablet times a day with meals. zolpidem (AMBIEN) Take 10 mg by 0 [...] 8 6 tablet HOURS NEEDED FOR NAUSEA/VOMIT escitalopram Take 40 mg by 0 Active (LEXAPRO) 20 MG mouth daily. tablet HYDROcodone-acetami TAKE 1/2 TABLT BY 0 Active [...] Active (PAMELOR) 10 MG mg capsule capsule lidocaine 0 Active (LIDODERM) 5 % 9 mycophenolate Take 1 tablet 60 tablet 5 02/01/20 Active (CELLCEPT) 500 mg (500 mg total) by 9 19 tabletIndications: mouth 2 (two) Positive KUSHAL times a day for (antinuclear 180 days. antibody) cevimeline (EVOXAC) Take 1 capsule 90 capsule 3 08/17/19 Active 30 mg capsule (30 mg total) by 9 20 mouth 3 (three) times a day. cetirizine (ZyrTEC) Take 10 mg by 0 09/15/19 Discontinued 10 MG tablet mouth nightly. 18 inFLIXimab Infuse 600 mg 0 07/04/19 Discontinued (REMICADE) 100 mg into a venous 3 19 injection catheter. ranitidine (ZANTAC) Take 75 mg by 0 07/04/19 Discontinued 75 MG tablet mouth. 19 potassium chloride Take 20 mEq by 1 08/05/19 Discontinued (K-DUR) 20 MEQ CR mouth once daily. 6 19 tablet SUMAtriptan TK 1 T PO QD PRN. 3 08/05/19 Discontinued (IMITREX) 100 MG 6 19 tablet furosemide (LASIX) Take 40 mg by 0 07/04/19 Discontinued 40 mg tablet mouth daily. 7 19 pyridoxine, vitamin Take 100 mg by 0 08/05/19 Discontinued B6, (B-6) 100 MG mouth. 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, lumbar region Autoimmune hepatitis Rheumatoid arthritis of multiple sites without rheumatoid factor Anxiety and depression GERD (gastroesophageal reflux disease) Encounters Date Type Specialty Care Team Description 08/17/2018 Orders Only Rheumatology Tamara Salinas MA 08/04/2018 Office Visit Rheumatology Cristopher Bettencourt, Positive KUSHAL ( antinuclear antibody) (Primary Dx); Encounter for long-term (current) use of high-risk medication 07/19/2018 Orders Only Rheumatology Cristopher Bettencourt, Positive KUSHAL ( antinuclear antibody) (Primary Dx); MD Kaminski 07/07/2018 Telephone Gastroenterology Ashvin Singletary MA 07/07/2018 Telephone Gastroenterology Shayan Cardona LVN 07/06/2018 Telephone Gastroenterology Ashvin Singletary MA 07/03/2018 Office Visit Rheumatology Cristopher Bettencourt, Inflammatory arthritis (Primary Dx); Positive KUSHAL (antinuclear antibody); Crohn's disease of colon with complication (HCC); Autoimmune hepatitis (HCC); Encounter for long-term (current) use of high-risk medication 02/02/2018 Telephone Rheumatology Cristopher Bettencourt MD 09/14/2017 Office Visit Rheumatology Cristopher Bettencourt, Rheumatoid arthritis of multiple sites without rheumatoid factor (Primary Dx); Encounter for long-term (current) use of high-risk medication; Anxiety and depression after 08/22/2017 Family History Relation Name Status Comments Father [...] Sign Reading Time Taken Blood Pressure 137/80 08/04/2018 2:37 PM CDT Pulse 77 08/04/2018 2:37 PM CDT Temperature 36.9 C (98.4 F) 08/04/2018 2:37 PM CDT Respiratory Rate 18 08/04/2018 2:37 PM CDT Oxygen Saturation 98% 08/04/2018 2:37 PM CDT Inhaled Oxygen Concentration - - Weight 89.2 kg (196 lb 11.2 oz) 08/04/2018 2:37 PM CDT Height 170.2 cm (5' 7") 08/04/2018 2:37 PM CDT Body Mass Index 30.81 08/04/2018 2:37 PM CDT Plan of Treatment Date Type Specialty Care Team Description 08/24/2018 Office Visit Gastroenterology Raza Kaye MD [address] [facility] [address] [place] [address] [phone] 09/19/2018 Office Visit Rheumatology Cristopher Bettencourt MD [address] [facility] [address] [place] [address] [phone] Health Maintenance Due Date Last Done Comments DIABETIC RETINAL EYE EXAM 1950 DIABETIC FOOT EXAM 11/24/1961 BREAST CANCER SCREENING 11/24/2001 SHINGLES VACCINES (#1) 11/24/2001 65+ PNEUMOCOCCAL VACCINE (1 of 2 - PCV13) 11/24/2016 PNEUMOCOCCAL POLYSACCHARIDE VACCINE AGE 65 AND OVER 11/24/2016 INFLUENZA VACCINE 11/23/2018 COLON CANCER SCREENING 07/10/2028 07/10/2018 Procedures Procedure Name Priority Date/Time Associated Diagnosis Comments STOOL CULTURE Routine 07/10/2018 10:52 Crohn's disease of Results for this AM CDT colon with procedure are in complication (HCC) the results section. OCCULT BLOOD, STOOL Routine 07/10/2018 10:52 Crohn's disease of Results for this AM CDT colon with procedure are in complication (HCC) the results section. QUANTIFERON-TB GOLD Routine 07/10/2018 10:48 Results for this PLUS, 1 TUBE AM CDT procedure are in the results section. PROTEINASE-3 ANTIBODY Routine 07/10/2018 10:48 Crohn's disease of Results for this AM CDT colon with procedure are in complication (HCC) the results section. LIVER-KIDNEY MICROSOME Routine 07/10/2018 10:48 Autoimmune hepatitis Results for this AB, IGG AM CDT (HCC) procedure are in the results section. F-ACTIN (SMOOTH MUSCLE) Routine 07/10/2018 10:48 Autoimmune hepatitis Results for this ANTIBODY, IGG AM CDT (HCC) procedure are in the results section. ANTI MITOCHONDRIA TITER Routine 07/10/2018 10:48 Autoimmune hepatitis Results for this AM CDT (HCC) procedure are in the results section. SSA/SSB ANTIBODY Routine 07/10/2018 10:48 Positive KUSHAL Results for this AM CDT (antinuclear procedure are in antibody) the results section. RHEUMATOID FACTOR Routine 07/10/2018 10:48 Inflammatory Results for this AM CDT arthritis procedure are in the results section. MYELOPEROXIDASE Routine 07/10/2018 10:48 Crohn's disease of Results for this ANTIBODY (MPO) AM CDT colon with procedure are in complication (HCC) the results section. CYCLIC CITRULLINATED Routine 07/10/2018 10:48 Inflammatory Results for this PEPTIDE AB, IGG AM CDT arthritis procedure are in the results section. C4 COMPLEMENT COMPONENT Routine 07/10/2018 10:48 Positive KUSHAL Results for this AM CDT (antinuclear procedure are in antibody) the results section. C3 COMPLEMENT COMPONENT Routine 07/10/2018 10:48 Positive KUSHAL Results for this AM CDT (antinuclear procedure are in antibody) the results section. KUSHAL SCREEN W IFA W Routine 07/10/2018 10:48 Positive KUSHAL Results for this REFLEX TO TITER AM CDT (antinuclear procedure are in antibody) the results section. ANCA SCREEN WITH REFLEX Routine 07/10/2018 10:48 Inflammatory Results for this TO ANCA TITER AM CDT arthritis procedure are in the results section. after 08/22/2017 Results Occult blood, stool (07/10/2018 10:52 AM CDT) Fecal globin result SEE NOTE [employer] [place] Comment: FECAL GLOBIN BY IMMUNOCHEMISTRY MICRO NUMBER:[id number] TEST STATUS: FINAL SPECIMEN SOURCE: [facility] () FOBT TEST CARD SPECIMEN QUALITY:ADEQUATE RESULT:Not Detected Specimen Stool Narrative Performed At FASTING:YES [facility] COLLECTION KIT GIVEN TO PATIENT. PATIENT ADVISED TO RETURN. FASTING: YES Resulting Agency Comment Performing Organization Information: Site ID: [id number] Name: [facility] Address: [address] [place] [phone] Director: Rosalinda Vazquez Performing Organization Address City/State/Zipcode Phone Number [facility] [address] [address] Stool culture (07/10/2018 10:52 AM CDT) Shiga toxin isolate SEE NOTE [employer] Comment: [place] SHIGA TOXINS, EIA W/RFL TO E.COLI O157 CULTURE MICRO NUMBER:[id number] TEST STATUS: FINAL SPECIMEN SOURCE: STOOL SPECIMEN QUALITY:ADEQUATE RESULT:Not Detected Campylobacter culture SEE NOTE [employer] [facility] isolate Comment: JAXON CAMPYLOBACTER, CULTURE MICRO NUMBER:[id number] TEST STATUS: FINAL SPECIMEN SOURCE: STOOL SPECIMEN QUALITY:ADEQUATE RESULT:No enteric Campylobacter isolated Shiga toxin isolate SEE NOTE [facility] Comment: JAXON SALMONELLA AND SHIGELLA, CULTURE MICRO NUMBER:[id number] TEST STATUS: FINAL SPECIMEN SOURCE: STOOL SPECIMEN QUALITY:ADEQUATE RESULT:No Salmonella or Shigella isolated Specimen Stool Narrative Performed At FASTING:YES [facility] COLLECTION KIT GIVEN TO PATIENT. PATIENT ADVISED TO RETURN. FASTING: YES Resulting Agency Comment Performing Organization Information: Site ID: [id number] Name: [facility] Address: [address] [place] [phone] Director: Rosalinda Vazquez Performing Organization Address City/State/Zipcode Phone Number [facility] [place] [address] QuantiFERON-TB Gold Plus, 1 Tube (07/10/2018 10:48 AM CDT) Quantiferon TB gold plus NEGATIVE NEGATIVE [employer] [facility] [employer] [facility] Comment: [place] Negative test result. M. tuberculosis complex infection unlikely. Quantiferon NIL 0.04 IU/mL [facility] [place] Quantiferon mitogen minus >10.00 IU/mL [facility] NIL [place] Quantiferon plus TB1 <0.00 IU/mL [facility] minus NIL [place] Quantiferon plus TB2 0.00 IU/mL [facility] minus NIL Comment: [place] The Nil tube value reflects the background interferon gamma immune response of the patient's blood sample. This value has been subtracted from the patient's displayed TB and Mitogen results. Lower than expected results with the Mitogen tube prevent false-negative Quantiferon readings by detecting a patient with a potential immune suppressive condition and/or suboptimal pre-analytical specimen handling. The TB1 Antigen tube is coated with the M. tuberculosis-specific antigens designed to elicit responses from TB antigen primed CD4+ helper T-lymphocytes. The TB2 Antigen tube is coated with the M. tuberculosis-specific antigens designed to elicit responses from TB antigen primed CD4+ helper and CD8+ cytotoxic T-lymphocytes. For additional information, please refer to http://education.Kony/faq/204 (This link is being provided for informational/ educational purposes only.) Narrative Performed At FASTING:YES [facility] FASTING: YES Resulting Agency Comment Performing Organization Information: Site ID: [id number] Name: [facility] Address: [address] [place] [address] Director: Rosalinda Vazquez Performing Organization Address [facility] Phone Number [facility][1] [address] [place] [address] Proteinase-3 Antibody (07/10/2018 10:48 AM CDT) IN-3 (protease) <1.0 AI [employer] Comment: ValueInterpretation <1.0 No Antibody Detected > or=1.0 Antibody Detected Autoantibodies to proteinase-3 (IN-3) are accepted as characteristic for granulomatosis with polyangiitis (GPA, Love's), and are detectable in 95% of the histologically proven cases. The cytoplasmic IFA pattern, (c-ANCA), is based largely on autoantibody to IN-3 which serves as the primary antigen. These autoantibodies are present in active disease. Specimen Blood Narrative Performed At FASTING:YES [facility] FASTING: YES Resulting Agency Comment Performing Organization Information: Site ID: [id number] Name: [facility] Address: [address] [place] [address] Director: Dr. Cade Chavez Performing Organization Address [facility] Phone Number [facility] [address] [place] [address] Myeloperoxidase Antibody (MPO) (07/10/2018 10:48 AM CDT) Myeloperoxidase Ab <1.0 AI [employer] Comment: [employer] II ValueInterpretation <1.0 No Antibody Detected > or=1.0 Antibody Detected Autoantibodies to myeloperoxidase (MPO) are commonly associated with the following small-vessel vasculitides: microscopic polyangiitis, polyarteritis nodosa, Churg-Arturo syndrome, necrotizing and crescentic glomerulonephritis and occasionally granulomatosis with polyangiitis (GPA, Love's). The perinuclear IFA pattern, (p-ANCA) is based largely on autoantibody to myeloperoxidase which serves as the primary antigen. These autoantibodies are present in active disease. Specimen Blood Narrative Performed At FASTING:YES [employer] FASTING: YES Resulting Agency Comment Performing Organization Information: Site ID: [id number] Name: [facility] Address: [address] [place] [address] Director: Dr. Cade Chavez Performing Organization Address City/[facility]/Zipcode Phone Number [facility] [address] [facility] [place] [address] ANCA SCREEN WITH REFLEX TO ANCA TITER (07/10/2018 10:48 AM CDT) ANCA screen NEGATIVE NEGATIVE [employer] [facility] Comment: ANCA Screen includes evaluation for p-ANCA, c-ANCA and atypical p-ANCA. A positive ANCA screen reflexes to titer and pattern(s), e.g., cytoplasmic pattern (c-ANCA), perinuclear pattern (p-ANCA), or atypical p-ANCA pattern. c-ANCA and p-ANCA are observed in vasculitis, whereas atypical p-ANCA is observed in IBD (Inflammatory Bowel Disease). Atypical p-ANCA is detected in about 55% to 80% of patients with ulcerative colitis but only 5% to 25% of patients with Crohn's disease. Specimen Blood Narrative Performed At FASTING:YES [facility] FASTING: YES Resulting Agency Comment Performing Organization Information: Site ID: EZ Name: [facility] [facility], Address: [address] [place] [phone] Director: Kaye Mendeita MD,PhD,JENIFER Performing Organization Address City/[facility]/Zipcode Phone Number [facility] [address] [place] [address] [facility] KUSHAL SCREEN W IFA W REFLEX TO TITER (07/10/2018 10:48 AM CDT) KUSHAL screen POSITIVE (A) NEGATIVE [employer] II Comment: KUSHAL IFA is a first line screen for detecting the presence of up to approximately 150 autoantibodies in various autoimmune diseases. A positive KUSHAL IFA result is suggestive of autoimmune disease and reflexes to titer and pattern. Further laboratory testing may be considered if clinically indicated. Visit Physician FAQs for interpretation of all antibodies in the [place], prevalence, and association with diseases at http://education.[employer]/ faq/IDS099 KUSHAL pattern DUAL (A) [employer] II Comment: Nucleolar pattern is associated with systemic sclerosis (scleroderma), systemic sclerosis/ polymyositis overlap and Sjogren's syndrome. Centromere pattern is associated with limited cutaneous systemic sclerosis, CREST (Calcinosis, Raynaud's, Esophageal dysmotility, Sclerodactyly, Telangiectasia)and primary biliary cirrhosis (PBC). KUSHAL titer SEE BELOW (A) titer [employer]DUNIA II Comment: Pattern:NUCLEOLAR Titer:1:160 Pattern:CENTROMERE Titer:1:640 Reference Range <1:40Negative 1:40-1:80Low Antibody Level >1:80Elevated Antibody Level Specimen Blood Narrative Performed At FASTING:YES [facility] FASTING: YES Resulting Agency Comment Performing Organization Information: Site ID: IG Name: [facility] Address: [address] [place] [phone] Director: Dr. Cade Chavez Performing Organization Address [facility] Phone Number [facility] [address]DUNIA[address] [address] SSA/SSB antibody (07/10/2018 10:48 AM CDT) Sjogren's SS-A antibody <1.0 NEG <1.0 NEG AI [employer] II Sjogren's SS-B antibody <1.0 NEG <1.0 NEG AI [employer] II Specimen Blood Narrative Performed At FASTING:YES [facility] FASTING: YES Resulting Agency Comment Performing Organization Information: Site ID: IG Name: [facility] Address: [address] [place] [phone] Director: Dr. Cade Chavez Performing Organization Address [facility] Phone Number [id number] [address] Liver-kidney microsome Ab, IgG (07/10/2018 10:48 AM CDT) Liver-kidney microsome <20.0 U [facility] Ab, IgG Comment: [facility] Reference Range: SJC < =20.0 NEGATIVE 20.1-24.9EQUIVOCAL > =25.0 POSITIVE Anti-liver/kidney microsomal antibodies (Anti-LKM-1) were previously tested by indirect immunofluorescence (IF) using rodent liver/kidney substrate. Identification of a specific antibody target as cytochrome P450 IID6 has led to the current recombinant based VENTURA. Antibodies to this cytochrome are present in approximately 70% of patients with autoimmune hepatitis type 2. This antibody is also present in approximately 10% of patients with hepatitis C infection. Specimen Blood Narrative Performed At FASTING:YES [employer] FASTING: YES Resulting Agency Comment Performing Organization Information: Site ID: EZ Name: [facility] [facility], Address: [address] [place] [phone] Director: Kaye Mendieta MD,PhD,JENIFER Performing Organization Address City/[facility]/Zipcode Phone Number [facility] [address] [place] [phone] [facility] Cyclic citrullinated peptide antibody, IgG (07/10/2018 10:48 AM CDT) Cyclic citrullin peptide <16 UNITS [employer]DUNIA Ab Comment: II Reference Range Negative:<20 Weak Positive: 20-39 Moderate Positive: 40-59 Strong Positive: >59 Specimen Blood Narrative Performed At FASTING:YES [employer] FASTING: YES Resulting Agency Comment Performing Organization Information: Site ID: IG Name: [facility] Address: [address] [place] [phone] Director: Dr. Cade Chavez Performing Organization Address [facility] Phone Number [facility] [place] [address] F-actin (smooth muscle) antibody, IgG (07/10/2018 10:48 AM CDT) F-actin (smooth muscle) 43 (H) U [facility] Ab, IgG Comment: [employer] [facility] Reference Range: < 20 NEGATIVE > OR=20 POSITIVE Antibodies recognizing actin are the main component of smooth muscle antibodies associated with autoimmune liver disease. Actin antibodies are found in approximately 75% of patients with autoimmune hepatitis (AIH) type 1, approximately 65% of patients with autoimmune cholangitis, approximately 30% of patients with primary biliary cirrhosis, and approximately 2% of healthy people. High values are closely correlated with AIH type 1. Specimen Blood Narrative Performed At FASTING:YES [facility] FASTING: YES Resulting Agency Comment Performing Organization Information: Site ID: EZ Name: [employer] [facility], Address: [address] [place] [phone] Director: Kaye Mendieta MD,PhD,JENIFER Performing Organization Address [facility] Phone Number [facility] [address] [place] [address] [phone] [facility] Anti mitochondria titer (07/10/2018 10:48 AM CDT) Mitochondrial Ab <20.0 U [employer] Comment: Reference Range: NEGATIVE:< OR=20.0 EQUIVOCAL: 20.1-24.9 POSITIVE:> OR=25.0 Specimen Blood Narrative Performed At FASTING:YES [facility] FASTING: YES Resulting Agency Comment Performing Organization Information: Site ID: EZ Name: [facility] [facility], Address: [address] [place] [phone] Director: Kaye Mendieta MD,PhD,JENIFER Performing Organization Address [facility] Phone Number [facility] [address] [place] [address] [facility] Rheumatoid factor (07/10/2018 10:48 AM CDT) Rheumatoid factor <14 <14 IU/mL [employer] [place] Specimen Blood Narrative Performed At FASTING:YES [facility] FASTING: YES Resulting Agency Comment Performing Organization Information: Site ID: RGA Name: [facility] Address: [address] [place] [phone] Director: Rosalinda Vazquez Performing Organization Address [facility] Phone Number [facility] [address] [address] C3 complement component (07/10/2018 10:48 AM CDT) C3 complement 89 83 - 193 mg/dL [employer] [place] Specimen Blood Narrative Performed At FASTING:YES [facility] FASTING: YES Resulting Agency Comment Performing Organization Information: Site ID: RGA Name: [facility] Address: [address] [place] [phone] Director: Rosalinda Vazquez Performing Organization Address City/[facility] Phone Number [facility] [place] [address] [place] [address] C4 complement component (07/10/2018 10:48 AM CDT) C4 complement 10 (L) 15 - 57 mg/dL [employer] [place] Specimen Blood Narrative Performed At FASTING:YES [facility] FASTING: YES Resulting Agency Comment Performing Organization Information: Site ID: RGA Name: [facility] Address: [address] [place] [phone] Director: Rosalinda Vazquez Performing Organization Address [facility] Phone Number [facility] [place] [address] [place] [phone] after 08/22/2017 Insurance Payer Benefit Plan / Group Subscriber ID Type Phone Address AETNA MEDICARE AETNA MEDICARE HMO/PPO [facility] xxxxxxxx HMO Advance Directives Patient has advance care planning documents on file. For more information, please contact:[place] [address]
--- OUTSIDE RECORDS SUMMARY | 2018-08-23 15:08 | XMS REPORT | Continuity of Care Document ---
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 01/15/2017 auto sup> immune [facility] Motility Active Problem 01/15/2017 [facility] Rheumatoid Active Problem 01/15/2017 arthritis [facility] Anxiety Resolved Problem 01/15/2017 [facility] HTN (<span Resolved Problem 01/15/2017 ID="[id number]" [facility] >Confirmed</span> ) Neuropathy Resolved Problem 01/15/2017 [facility] Osteoarthritis Active Problem 01/15/2017 [facility] UNILATERAL Active PRIMARY [facility] OSTEOARTHRITIS, RIGHT Medications Medication Details Route Status Patient Ordering Order Source Instructions Provider Date Acetaminophen 325 1 tab, PO, Active MG / Hydrocodone Q4H, PRN for 2016 [facility] Bitartrate 10 MG pain, X 14 Oral Tablet [Alexander day, # 84 tab, ] 0 Refill(s), called to pharmacy Cephalexin 500 MG 500 mg=1 cap, Active Oral Capsule PO, BID, X 10 2016 [facility] [Keflex] day, # 20 cap, 0 Refill(s), called to pharmacy 0.3 ML Enoxaparin 30 mg, SUB-Q, Active sodium 100 MG/ML Q12H, X 7 day, 2017 [facility] Prefilled Syringe # 14 syr, 0 [Lovenox] Refill(s), called to pharmacy escitalopram 20 mg 40 mg=2 tab, Active oral tablet PO, Bedtime, 0 2016 [facility] Refill(s) cetirizine 5 mg 5 mg=1 tab, Active oral tablet PO, Daily, 0 2016 [facility] Refill(s) Dilaudid 0.2 mg, Route: Inactive IVP, Q15Min, 2016 [facility] Dosing Weight 84.091, kg, PRN Pain Score 7-10, Start date: 01/11/17 12:48:00 CDT, Duration: 30 day, Stop date: 02/10/17 12:47:00 CDT Furosemide 40 mg, 1 tab, No Longer Route: PO, Active 2016 [facility] Drug form: TAB, Daily, Dosing Weight 84.091, kg, Start date: 01/11/17 9:00:00 CDT, Duration: 30 day, Stop date: 02/09/17 9:00:00 CDTNotes: (Same as: Lasix) May cause GI upset. Give with food or milk. Omeprazole 40 mg, Route: No Longer PO, Daily, Active 2016 [facility] Dosing Weight 84.091, kg, Start date: 01/11/17 9:00:00 CDT, Duration: 30 day, Stop date: 02/09/17 9:00:00 CDT Zyrtec 5 mg, Route: No Longer PO, Daily, Active 2016 [facility] Dosing Weight 84.091, kg, Start date: 01/11/17 9:00:00 CDT, Duration: 30 day, Stop date: 02/09/17 9:00:00 CDT Provigil 200 mg, 1 tab, No Longer Route: PO, Active 2016 [facility] Drug form: TAB, QAM, Dosing Weight 84.091, kg, Start date: 01/11/17 9:00:00 CDT, Duration: 30 day, Stop date: 02/09/17 9:00:00 CDTNotes: (Same as:Provigil) Lovenox 30 mg, 0.3 mL, No Longer Route: SUB-Q, Active 2016 [facility] Drug form: INJ, [id number], Start date: 01/11/17 8:00:00 CDT, Duration: 30 day, Stop date: 02/09/17 20:00:00 CDTNotes: (Same as: Lovenox) Potassium Chloride 20 mEq, 1 tab, No Longer Route: PO, Active 2016 [facility] Drug form: ERTAB, Breakfast, Dosing Weight 84.091, kg, Start date: 01/11/17 8:00:00 CDT, Duration: 30 day, Stop date: 02/09/17 8:00:00 CDTNotes: (Same as: K-Dur 20) "Do Not Crush" With food and full glass of water Xanax 1 mg, 1 tab, Inactive Route: PO, 2016 [facility] Drug form: TAB, ONCE, Start date: 01/10/17 21:45:00 CDT, Stop date: 01/10/17 21:45:00 CDTNotes: With food or milk (Same as: Xanax) Lexapro 40 mg, 2 tab, No Longer Route: PO, Active 2016 [facility] Drug form: TAB, Bedtime, Dosing Weight 84.091, kg, Start date: 01/10/17 21:00:00 CDT, Duration: 30 day, Stop date: 02/08/17 21:00:00 CDTNotes: (Same as: Lexapro) senna 8.6 mg oral 8.6 mg, 1 tab, No Longer tablet Route: PO, Active 2016 [facility] Drug Form: TAB, Dosing Weight 84.091, kg, Bedtime, Start date: 01/10/17 21:00:00 CDT, Duration: 30 day, Stop date: 02/08/17 21:00:00 CDTNotes: (Same as: Senokot) Losartan 25 mg, 1 tab, No Longer Route: PO, Active 2016 [facility] Drug form: TAB, Bedtime, Dosing Weight 84.091, kg, Start date: 01/10/17 21:00:00 CDT, Duration: 30 day, Stop date: 02/08/17 21:00:00 CDTNotes: (Same as: Cozaar) Zyrtec 5 mg, 1 tab, No Longer Route: PO, Active 2016 [facility] Drug form: TAB, Daily, Dosing Weight 84.091, kg, Start date: 01/10/17 21:00:00 CDT, Duration: 30 day, Stop date: 02/08/17 21:00:00 CDTNotes: (Same As: Zyrtec) famotidine 20 mg, 1 tab, No Longer Route: PO, Active 2016 [facility] Drug form: TAB, Q12H, Start date: 01/10/17 21:00:00 CDT, Duration: 30 day, Stop date: 02/09/17 9:00:00 CDTNotes: (Same as: Pepcid) Protonix 40 mg, 1 tab, No Longer Route: PO, Active 2016 [facility] Drug form: ECTAB, Daily, Start date: 01/10/17 21:00:00 CDT, Duration: 30 day, Stop date: 02/08/17 21:00:00 CDTNotes: Tablet should not be chewed or crushed. (Same as: Protonix) zolpidem 5 mg, 1 tab, No Longer Route: PO, 2016 [facility] Drug form: TAB, Bedtime, Dosing Weight 84.091, kg, PRN Insomnia, Start date: 01/10/17 20:43:00 CDT, Duration: 30 day, Stop date: 02/09/17 20:42:00 CDTNotes: (Same As: Ambien) Sodium Chloride 250 mL, Route: No Longer 0.9% IV IVPB, Start Active 2016 [facility] date: 01/10/17 20:02:00 CDT, Duration: 30 day, Stop date: 02/09/17 20:01:00 CDT, PRN Line Flush BD Normal Saline 10 mL, Route: No Longer Flush IVP, Drug Active 2016 [facility] Form: INJ, PRN, PRN Line Flush, Start date: 01/10/17 20:02:00 CDT, Duration: 30 day, Stop date: 02/09/17 20:01:00 CDTNotes: (Same as: BD Posiflush) Docusate Sodium 100 mg, 1 cap, No Longer 100 MG Oral Route: PO, Active 2016 [facility] Capsule [Colace] Drug form: CAP, BID, Dosing [...] 150 mg, Route: Inactive PO, BID, 2016 [facility] Dosing Weight 84.091, kg, Start date: 01/10/17 17:00:00 CDT, Duration: 30 day, Stop date: 02/09/17 9:00:00 CDT gabapentin 100 mg, Route: Inactive PO, TID, 2016 [facility] Dosing Weight 84.091, kg, Start date: 01/10/17 17:00:00 CDT, Duration: 30 day, Stop date: 02/09/17 13:00:00 CDT Reglan 10 mg, 2 tab, No Longer Route: PO, Active 2016 [facility] Drug form: TAB, QID-Before Meals, Dosing Weight 84.091, kg, Start date: 01/10/17 16:30:00 CDT, Duration: 30 day, Stop date: 02/09/17 11:30:00 CDTNotes: (Same as: Reglan) Take 30 min before meals ceFAZolin 2 gm, 100 mL, No Longer Route: IVPB, Active 2016 [facility] Drug form: INJ, Q8H, Start date: 01/10/17 16:00:00 CDT, Duration: 3 doses or times, Stop date: 01/11/17 8:00:00 CDT, ABX Indication: Surgical ProphylaxisNot es: Same as: Ancef glucagon 1 mg, Route: No Longer IM, Drug form: Active 2016 [facility] PDR/INJ, PRN, PRN Blood Glucose Results, Start date: 01/10/17 14:49:00 CDT, Duration: 30 day, Stop date: 02/09/17 14:48:00 CDT Dextrose 50% in 25 mL, Route: No Longer Water IV IVP, Start Active 2016 [facility] date: 01/10/17 14:48:00 CDT, Duration: 30 day, Stop date: 02/09/17 14:47:00 CDT, PRN Blood Glucose Results Dextrose 50% in 50 mL, Route: No Longer Water IV IVP, Start Active 2016 [facility] date: 01/10/17 14:47:00 CDT, Duration: 30 day, Stop date: 02/09/17 14:46:00 CDT, PRN Blood Glucose Results Humalog 6 unit, 0.06 No Longer mL, Route: Active 2016 [facility] SUB-Q, Drug form: SOLN, QID-Before Meals, PRN [...] 0.05 No Longer mL, Route: Active 2016 [facility] SUB-Q, Drug form: SOLN, QID-Before Meals, PRN [...] 0.04 No Longer mL, Route: Active 2016 [facility] SUB-Q, Drug form: SOLN, QID-Before Meals, PRN [...] tab, No Longer Route: PO, Active 2016 [facility] Drug form: TAB, Q8H, Dosing Weight 84.091, kg, PRN as needed for nausea/vomitin g, Start date: 01/10/17 14:24:00 CDT, Duration: 30 day, Stop date: 02/09/17 14:23:00 CDTNotes: (Same as: Zofran) Melatonin 5 mg, 1 tab, No Longer Route: PO, Active 2016 [facility] Drug form: TAB, Bedtime, Dosing Weight 84.091, kg, PRN Insomnia, Start date: 01/10/17 14:24:00 CDT, Duration: 30 day, Stop date: 02/09/17 14:23:00 CDTNotes: (Same as: Melatonin) Guaifenesin 400 mg, 2 tab, No Longer Route: PO, Active 2016 [facility] Drug form: TAB, BID, Dosing Weight 84.091, kg, PRN Cough/Congesti on, Start date: 01/10/17 14:23:00 CDT, Duration: 30 day, Stop date: 02/09/17 14:22:00 CDTNotes: (Same as: Organidin NR) Adderall 10 mg, Route: No Longer PO, Drug form: Active 2016 [facility] TAB, BID, Dosing Weight 84.091, kg, PRN Agitation, Start date: 01/10/17 14:22:00 CDT, Duration: 30 day, Stop date: 02/09/17 14:21:00 CDT gabapentin 100 mg, 1 cap, No Longer Route: PO, Active 2016 [facility] Drug form: CAP, Q8Hnow, Dosing Weight 84.091, kg, Start date: 01/10/17 14:00:00 CDT, Duration: 30 day, Stop date: 02/09/17 6:00:00 CDTNotes: (Same as: Neurontin) Acetaminophen 1,000 mg, 2 No Longer tab, Route: Active 2016 [facility] PO, Drug form: TAB, Q6Hnow, Dosing Weight 84.091, kg, Start date: 01/10/17 13:00:00 CDT, Duration: 30 day, Stop date: 02/09/17 7:00:00 CDTNotes: Max acetaminophen 4000 mg/day (4 gm/day). (Same as: Tylenol Extra Strength) Guaifenesin 400 mg, PO, Active BID, PRN 2016 [facility] Cough/Congesti on, 0 Refill(s) Amphetamine 10 mg=1 tab, Active aspartate 2.5 MG / PO, BID, PRN 2016 [facility] Amphetamine Agitation, # Sulfate 2.5 MG / 60 tab, 0 Dextroamphetamine Refill(s) saccharate 2.5 MG / Dextroamphetamine Sulfate 2.5 MG Oral Tablet [Adderall] melatonin 5 mg 5 mg=1 tab, Active oral tablet PO, Bedtime, 2016 [facility] PRN for insomnia, # 60 tab, 0 Refill(s) Adderall PO, BID, 0 Active Refill(s) 2017 [facility] hyoscyamine 0.125 0.125 mg=1 Active mg oral tablet tab, PO, TID, 2017 [facility] 0 Refill(s) levocetirizine 5 5 mg=1 tab, Active mg oral tablet PO, QPM, # 30 2017 [facility] tab, 1 Refill(s) Oxycodone 5 mg, 1 tab, No Longer Hydrochloride 5 MG Route: PO, Active 2016 [facility] Oral Tablet Drug form: TAB, Q4H, Dosing Weight 84.091, kg, PRN Pain Score 4-6, Start date: 01/10/17 12:03:00 CDT, Duration: 30 day, Stop date: 02/09/17 12:02:00 CDTNotes: (Same as: Roxicodone) Morphine 2 mg, 1 mL, No Longer Route: IVP, Active 2016 [facility] Drug form: INJ, Q4H, Dosing Weight 84.091, kg, PRN Pain Score 7-10, Start date: 01/10/17 12:03:00 CDT, Duration: 30 day, Stop date: 02/09/17 12:02:00 CDTNotes: (Same as:MORPhine Sulfate) Hydromorphone 0.3 mg, 0.3 No Longer mL, Route: Active 2016 [facility] IVP, Drug form: INJ, Q4H, Dosing Weight 84.091, kg, PRN Pain Score 7-10, Start date: 01/10/17 12:03:00 CDT, Duration: 30 day, Stop date: 02/09/17 12:02:00 CDT Ondansetron 4 mg, 2 mL, No Longer Route: IVP, Active 2016 [facility] Drug form: INJ, Q8H, Dosing Weight 84.091, kg, PRN Nausea & Vomiting, Start date: 01/10/17 12:03:00 CDT, Duration: 30 day, Stop date: 02/09/17 12:02:00 CDTNotes: (Same as: Zofran) MEDICATION WASTE Product Size: 4 mg Product Wasted: ___ mg Cefazolin 1 gm, Route: Inactive IVPB, Drug 2016 [facility] form: INJ, Q6H, Dosing Weight 84.091, kg, Start date: 01/10/17 12:00:00 CDT, Duration: 3 doses or times, Stop date: 01/11/17 0:00:00 CDT, ABX Indication: Surgical Prophylaxis Zofran 4 mg, Route: Inactive IVP, Drug 2016 [facility] form: INJ, ONCE, Dosing Weight 84.091, kg, Start date: 01/10/17 11:16:00 CDT, Stop date: 01/10/17 11:16:00 CDT Morphine 2 mg, Route: Inactive IVP, ONCE, 2016 [facility] Dosing Weight 84.091, kg, Start date: 01/10/17 11:09:00 CDT, Stop date: 01/10/17 11:09:00 CDT Ondansetron 0.8 4 mg, 5 mL, Inactive MG/ML Oral Route: IV, 2016 [facility] Solution [Zofran] ONCE, Dosing Weight 84.091, kg, Start date: 01/10/17 11:09:00 CDT, Stop date: 01/10/17 11:09:00 CDT Morphine 2 mg, Route: Inactive IVP, ONCE, 2016 [facility] Dosing Weight 84.091, kg, Start date: 01/10/17 10:55:00 CDT, Stop date: 01/10/17 10:55:00 CDT ropivacaine Route: NERVE No Longer BLOCK, Active 2016 [facility] Continuous Rate: 10, ml/hr, Side: Right Dosing Site: Femoral, 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, 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 MACHINE OPERATOR dose lockout: 30 minutes, 1 Hour limit: 20 mL, 200, mL, Start date: 01/10/17 10:13:00 CDT, Duration: 30, day, Drug Form: INJ, Total volume: 200, mL, k...Notes: Same as: Naropin ondansetron (ANES) Route: IV, Inactive Drug form: 2016 [facility] INJ, ONCE, Stop date: 01/10/17 10:09:00 CDT dexamethasone Route: IV, Inactive (ANES) Drug form: 2016 [facility] INJ, ONCE, Stop date: 01/10/17 8:42:00 CDT rocuronium (ANES) Route: IV, Inactive Drug form: 2016 [facility] INJ, ONCE, Stop date: 01/10/17 8:42:00 CDT fentaNYL (ANES) Route: IV, Inactive Drug form: 2016 [facility] INJ, ONCE, Stop date: 01/10/17 8:42:00 CDT propofol (ANES) Route: IV, Inactive Drug form: 2016 [facility] INJ, ONCE, Stop date: 01/10/17 8:42:00 CDT lidocaine (ANES) Route: IV, Inactive Drug form: 2016 [facility] INJ, ONCE, Stop date: 01/10/17 8:27:00 CDT succinylcholine Route: IV, Inactive (ANES) Drug form: 2016 [facility] INJ, ONCE, Stop date: 01/10/17 8:27:00 CDT ceFAZolin (ANES) Route: IV, Inactive Drug form: 2016 [facility] INJ, ONCE, Stop date: 01/10/17 8:27:00 CDT Enoxaparin 30 mg, Route: Inactive SUB-Q, Drug 2016 [facility] form: INJ, [id number], Dosing Weight 84.091, kg, Start date: 01/10/17 8:00:00 CDT, Duration: 30 day, Stop date: 02/08/17 20:00:00 CDT Isolyte S (PH 7.4) Route: IV, Inactive 1000 mL (ANES) Total Volume: 2016 [facility] 1,000, Start date: 01/10/17 7:45:00 CDT, Stop date: 01/10/17 8:45:00 CDT sodium chloride 1,000 mL, No Longer 0.45% 1000 ml INJ Rate: 75 Active 2016 [facility] 1,000 mL ml/hr, Infuse over: 13.3 hr, Route: IV, Dosing Weight 84.091 kg, Total Volume: 1,000, Start date: 01/10/17 7:19:00 CDT, Duration: 30 day, Stop date: 02/09/17 7:18:00 CDT gabapentin 300 mg, 1 cap, Inactive Route: PO, 2016 [facility] Drug form: CAP, ONCE, Dosing Weight 84.091, kg, Start date: 01/10/17 5:32:00 CDT, Stop date: 01/10/17 5:32:00 CDTNotes: (Same as: Neurontin) Kytril 0.1 mg, 0.1 Inactive mL, Route: 2015 [facility] IVP, Drug form: INJ, ONCE, Dosing Weight 86.364, kg, Start date: 05/30/15 10:48:00, Stop date: 05/30/15 10:48:00Notes: Same as: Kytril Non Formulary MEDICATION WASTE Product Size: 1 mg Product Wasted: ___ mg Promethazine 12.5 mg, Inactive Route: IM, 2015 [facility] ONCE, Dosing Weight 86.364, kg, Start date: 05/30/15 10:48:00, Stop date: 05/30/15 10:48:00 Fentanyl 25 microgram, Inactive 0.5 mL, Route: 2015 [facility] IVP, Drug form: INJ, Q5Min, Dosing Weight 86.364, kg, PRN Pain Score 4-6, Start date: 05/30/15 6:47:00, Duration: 4 doses or times, Stop date: Limited # of timesNotes: (Same as: Sublimaze) Preservative free. Morphine 4 mg, 1 mL, Inactive Route: IVP, 2015 [facility] Drug form: INJ, Q5Min, Dosing Weight 86.364, kg, PRN Pain Score 7-10, Start date: 05/30/15 6:47:00, Duration: 3 doses or times, Stop date: Limited # of timesNotes: (Same as:MORPhine Sulfate) Flumazenil 0.2 mg, 2 mL, Inactive Route: IVP, 2015 [facility] Drug form: INJ, PRN, Dosing Weight 86.364, kg, PRN Benzodiazepine Reversal, Initial dose, Start date: 05/30/15 6:47:00, Duration: 30 day, Stop date: 06/29/15 6:46:00Notes: (Same as: Romazicon) Naloxone 0.04 mg, 0.1 Inactive mL, Route: 2015 [facility] IVP, Drug form: INJ, Q2MIN, Dosing Weight 86.364, kg, PRN Narcotic Reversal, Start date: 05/30/15 6:47:00, Duration: 8 doses or times, Stop date: Limited # of timesNotes: Same as Narcan Ondansetron 4 mg, 2 mL, Inactive Route: IVP, 2015 [facility] Drug form: INJ, ONCE, Dosing Weight 86.364, kg, PRN Nausea & Vomiting, Start date: 05/30/15 6:47:00Notes: (Same as: Zofran) MEDICATION WASTE Product Size: 4 mg Product Wasted: ___ mg Calcium Chloride 1,000 mL, Inactive 0.0014 MEQ/ML / Rate: 125 2015 [facility] Potassium Chloride ml/hr, Infuse 0.004 MEQ/ML / over: 8 hr, Sodium Chloride Route: IV, 0.103 MEQ/ML / Dosing Weight Sodium Lactate 86.364 kg, 0.028 MEQ/ML Total Volume: Injectable 1,000, Start Solution date: 05/30/15 6:47:00, Duration: 30 day, Stop date: 06/29/15 6:46:00 Acetaminophen 1,000 mg, 100 Inactive mL, Route: 2015 [facility] IVPB, Drug form: INJ, ONCE, Dosing Weight 86.364, kg, PRN Pain Score 1-3, Start date: 05/30/15 6:47:00, Duration: 1 doses or times, Stop date: Limited # of timesNotes: Infuse over 15 minutes Do not exceed 4gm/day of acetaminophen MEDICATION WASTE Product Size: 1000 mg Product Wasted: ___ mg Calcium Chloride 1,000 mL, Inactive 0.0014 MEQ/ML / Rate: 25 2015 [facility] Potassium Chloride ml/hr, Infuse 0.004 MEQ/ML / over: 40 hr, Sodium Chloride Route: IV, 0.103 MEQ/ML / Dosing Weight Sodium Lactate 86.364 kg, 0.028 MEQ/ML Total Volume: Injectable 1,000, Start Solution date: 05/30/15 6:46:00, Duration: 30 day, Stop date: 06/29/15 6:45:00 Insulin, Aspart, 10 unit, 0.1 Inactive Human mL, Route: 2014 [facility] SUB-Q, Drug form: SOLN, Sliding Scale, Dosing Weight 86.364, kg, PRN Blood Glucose Results, Start date: 02/28/15 11:44:00, Duration: 30 day, Stop date: 03/30/15 11:43:00Notes: Roll in palms of hands gently; Do not shake vigorously. (Same as: NovoLOG) "single patient use only" Stable for 28 days at room temperature. Expires in days from Date Ondansetron 4 mg, 2 mL, Inactive Route: IV2014 [facility] Drug form: INJ, ONCE, Dosing Weight 86.364, kg, PRN Nausea & Vomiting, Start date: 02/28/15 11:44:00Notes: (Same as: Patsy) MEDICATION WASTE Product Size: 4 mg Product Wasted: ___ mg Labetalol 10 mg, 2 mL, Inactive Route: IVP2014 [facility] Drug form: INJ, Q5Min, Dosing Weight 86.364, kg, PRN Elevated BP, Start date: 02/28/15 11:44:00, Duration: 5 doses or times, Stop date: Limited # of timesNotes: (Same as: Normodyne, Trandate) Push over 2 minutes Give bolus over 2-3 minutes. Calcium Chloride 1,000 mL, Inactive 0.0014 MEQ/ML / Rate: 125 2014 [facility] Potassium Chloride ml/hr, Infuse 0.004 MEQ/ML / over: 8 hr, Sodium Chloride Route: IV, 0.103 MEQ/ML / Dosing Weight Sodium Lactate 86.364 kg, 0.028 MEQ/ML Total Volume: Injectable 1,000, Start Solution date: 02/28/15 11:44:00, Duration: 30 day, Stop date: 03/30/15 11:43:00 Morphine 2 mg, 1 mL, Inactive Route: IVP2014 [facility] Drug form: INJ, Q5Min, Dosing Weight 86.364, kg, PRN Pain Score 4-6, Start date: 02/28/15 11:44:00, Duration: 5 doses or times, Stop date: Limited # of timesNotes: (Same as:MORPhine Sulfate) Meperidine 12.5 mg, 0.25 Inactive mL, Route: 2014 [facility] IVP, Drug form: INJ, Q30Min, Dosing Weight 86.364, kg, PRN Other -See Comment, For shivering, Start date: 02/28/15 11:44:00, Duration: 2 doses or times, Stop date: Limited # of timesNotes: (Same As: Demerol) Flumazenil 0.2 mg, 2 mL, Inactive Route: IVP2014 [facility] Drug form: INJ, PRN, Dosing Weight 86.364, kg, PRN Benzodiazepine Reversal, Initial dose, Start date: 02/28/15 11:44:00, Duration: 30 day, Stop date: 03/30/15 11:43:00Notes: (Same as: Romazicon) Naloxone 0.04 mg, 0.1 Inactive mL, Route: 2014 [facility] IVP, Drug form: INJ, Q2MIN, Dosing Weight 86.364, kg, PRN Narcotic Reversal, Start date: 02/28/15 11:44:00, Duration: 8 doses or times, Stop date: Limited # of timesNotes: (Same as: Narcan) Imuran 100 mg, PO, Active Daily 2014 [facility] Provigil 200 mg, PO, Active QAM 2014 [facility] Zantac 300 mg, PO, Active Daily 2014 [facility] Omeprazole 40 mg, PO, Active Daily 2014 [facility] Losartan 25 mg, PO, Active Bedtime 2014 [facility] Zyrtec 5 mg, PO, Active Daily 2014 [facility] Furosemide 40 mg, PO, Active Daily 2014 [facility] Lexapro 40 mg, PO, Active Daily 2014 [facility] Reglan 10 mg, PO, Active QID-Before 2014 [facility] Meals Tramadol 50 mg, PO, Active Q4-6H, PRN 2014 [facility] Pain potassium chloride 20 mEq, PO, Active Daily, 0 2014 [facility] Refill(s) Xanax 0.25 mg, PO, Active TID 2014 [facility] Zofran 4 mg, PO, Q8H, Active PRN as needed 2014 [facility] for nausea/vomitin g Benadryl 25 mg, PO, Active Bedtime 2014 [facility] Mucinex 600 mg, PO, Active Q12H 2014 [facility] Allergies, Adverse Reactions, Alerts Substance Category Reaction Severity Reaction Status Date Comments Source type Reported Bactrim Assertion Drug Active allergy [facility] codeine Assertion Drug Active sulfate allergy [facility] NKFA Assertion Drug Active allergy [facility] Immunizations Immunization Date Given Site Status Last Updated Comments Source Results Order Name Results Value Reference Date Interpretation Comments Source Range HEMATOLOGY Platelet 157 K/CMM 133 - 450 01/12 [facility] HEMATOLOGY Hct 26.3 % 36.0 - 01/12 48.0 [facility] HEMATOLOGY Hgb 9.2 g/dL 12.0 - 01/12 16.0 [facility] CHEM PANEL eGFR 96 01/11 Result Comment: [...] is not recommended in the following populations: [place] [id number] Individuals with unstable creatinine concentrations, including patients [...] CO2 24 meq/L 24 - 32 01/11 [facility] CHEM PANEL Calcium Lvl 8.1 mg/dL 8.5 - 10.5 01/11 [facility] CHEM PANEL Creatinine 0.60 mg/dL 0.50 - 01/11 Lvl 1.40 [facility] CHEM PANEL AGAP 15.0 meq/L 10.0 - 01/11 MH 20.0 /2016 [facility] CHEM PANEL BUN 6 mg/dL 7 - 22 01/11 /2016 [facility] CHEM PANEL Glucose Lvl 131 mg/dL 70 - 99 01/11 [facility] CHEM PANEL Potassium 4.0 meq/L 3.5 - 5.1 01/11 MH Lvl /2017 [facility] CHEM PANEL Sodium Lvl 134 meq/L 135 - 145 01/11 /2016 [facility] CHEM PANEL Chloride Lvl 99 meq/L 95 - 109 01/11 /2016 [facility] HEMATOLOGY INR 1.07 0.85 - 01/11 MH 1.17 [facility] HEMATOLOGY PT 14.1 s 12.0 - 01/11 MH 14.7 [facility] HEMATOLOGY WBC 8.9 K/CMM 3.7 - 10.4 01/11 /2016 [facility] HEMATOLOGY RBC 2.92 M/CMM 4.20 - 01/11 [facility] 5.40 /2016 [facility] [facility] HEMATOLOGY Hgb 8.9 g/dL 12.0 - 01/11 Result MH 16.0 Comment: [facility] Notiffied [facility] HEMATOLOGY MCV 88.3 fL 80.0 - 01/11 MH 98.0 /2016 [facility] HEMATOLOGY Hct 25.8 % 36.0 - 01/11 MH 48.0 /2016 [facility] HEMATOLOGY RDW 15.4 % 11.5 - 01/11 MH 14.5 [facility] HEMATOLOGY MCHC 34.6 g/dL 32.0 - 01/11 MH 36.0 /2016 [facility] HEMATOLOGY Platelet 161 K/CMM 133 - 450 01/11 /2016 [facility] HEMATOLOGY MCH 30.6 pg 27.0 - 01/11 MH 31.0 [facility] HEMATOLOGY MPV 8.5 fL 7.4 - 10.4 01/11 /2016 [facility] HEMATOLOGY Segs-Bands # 5.4 K/CMM 1.5 - 8.1 01/11 /2016 [facility] HEMATOLOGY Lymphocytes 1.8 K/CMM 1.0 - 5.5 01/11 MH # /2016 [facility] HEMATOLOGY Monocytes # 1.6 K/CMM 0.0 - 0.8 01/11 /2016 [facility] HEMATOLOGY Eosinophils 0.1 K/CMM 0.0 - 0.5 01/11 MH # /2016 [facility] HEMATOLOGY Eosinophils 0.6 % 0.0 - 4.0 01/11 /2016 [facility] HEMATOLOGY Basophils 0.4 % 0.0 - 1.0 01/11 [facility] HEMATOLOGY Plt Morph Normal 01/11 [facility] (01/11/17 4:50 AM) HEMATOLOGY RBC Morph Normal 01/11 [facility] (01/11/17 4:50 AM) HEMATOLOGY Segs 61.3 % 45.0 - 01/11 MH 75.0 /2016 [facility] HEMATOLOGY Monocytes 17.5 % 2.0 - 12.0 01/11 [facility] HEMATOLOGY Lymphocytes 20.2 % 20.0 - 01/11 MH 40.0 [facility] ELECTROLYT AGAP 7.8 meq/L 10.0 - 01/10 ES 20.0 [facility] ELECTROLYT eGFR 91 01/10 Result Comment: The [...] is not recommended in the following populations: [facility] 3m2 Individuals with unstable creatinine concentrations, including [...] Lvl 8.9 mg/dL 8.5 - 10.5 01/10 [facility] ELECTROLYT CO2 31 meq/L 24 - 32 01/10 [facility] ELECTROLYT Chloride Lvl 97 meq/L 95 - 109 01/10 [facility] ELECTROLYT Potassium 3.8 meq/L 3.5 - 5.1 01/10 ES Lvl [facility] ELECTROLYT Sodium Lvl 132 meq/L 135 - 145 01/10 [facility] ELECTROLYT Glucose Lvl 95 mg/dL 70 - 99 01/10 [facility] ELECTROLYT Creatinine 0.70 mg/dL 0.50 - 01/10 ES Lvl 1.40 /2016 [facility] ELECTROLYT BUN 6 mg/dL 7 - 22 01/10 [facility] HEMATOLOGY RDW 15.4 % 11.5 - 01/10 MH 14.5 /2016 [facility] HEMATOLOGY Platelet 197 K/CMM 133 - 450 01/10 /2016 [facility] HEMATOLOGY WBC 4.7 K/CMM 3.7 - 10.4 01/10 /2016 [facility] HEMATOLOGY MCH 30.4 pg 27.0 - 01/10 MH 31.0 /2016 [facility] HEMATOLOGY MCV 87.3 fL 80.0 - 01/10 MH 98.0 /2016 [facility] HEMATOLOGY Hct 36.9 % 36.0 - 01/10 MH 48.0 /2016 [facility] HEMATOLOGY RBC 4.23 M/CMM 4.20 - 01/10 MH 5.40 /2016 [facility] HEMATOLOGY Hgb 12.9 g/dL 12.0 - 01/10 MH 16.0 [facility] HEMATOLOGY MCHC 34.8 g/dL 32.0 - 01/10 MH 36.0 [facility] HEMATOLOGY MPV 7.9 fL 7.4 - 10.4 01/10 [facility] HEMATOLOGY Eosinophils 6.4 % 0.0 - 4.0 01/10 [facility] HEMATOLOGY Monocytes 20.6 % 2.0 - 12.0 01/10 [facility] HEMATOLOGY Lymphocytes 38.0 % 20.0 - 01/10 MH 40.0 [facility] HEMATOLOGY Segs-Bands # 1.6 K/CMM 1.5 - 8.1 01/10 [facility] HEMATOLOGY Basophils 1.4 % 0.0 - 1.0 01/10 [facility] HEMATOLOGY Eosinophils 0.3 K/CMM 0.0 - 0.5 01/10 MH # /2016 [facility] HEMATOLOGY Lymphocytes 1.8 K/CMM 1.0 - 5.5 01/10 MH # /2016 [facility] HEMATOLOGY Monocytes # 1.0 K/CMM 0.0 - 0.8 01/10 [facility] HEMATOLOGY Basophils # 0.1 K/CMM 0.0 - 0.2 01/10 [facility] HEMATOLOGY Plt Morph Normal 01/10 [facility] (01/10/17 5:38 AM) HEMATOLOGY RBC Morph Normal 01/10 [facility] (01/10/17 5:38 AM) HEMATOLOGY Segs 33.6 % 45.0 - 01/10 MH 75.0 [facility] URINE AND UA Sq Epi None Seen Few 01/10 MH STOOL [facility] (01/10/17 5:38 AM) URINE AND UA Leuk Est Small Negative 01/10 STOOL [facility] *ABN* (01/10/17 5:38 AM) URINE AND UA WBC 1 /HPF 0 - 5 01/10 STOOL [facility] URINE AND UA Nitrite Negative Negative 01/10 STOOL [facility] (01/10/17 5:38 AM) URINE AND UA Bili Negative Negative 01/10 [facility] *NA* (01/10/17 5:38 AM) URINE AND UA Blood Negative Negative 01/10 STOOL [facility] (01/10/17 5:38 AM) URINE AND UA 0.2 EU/dL 0.1 - 1.0 01/10 STOOL Urobilinogen [facility] URINE AND UA Color Yellow Yellow 01/10 [facility] *NA* (01/10/17 5:38 AM) URINE AND UA pH 7.0 5.0 - 8.0 01/10 [facility] URINE AND UA Protein Negative Negative 01/10 [facility] (01/10/17 5:38 AM) URINE AND UA Ketones Negative Negative 01/10 [facility] *NA* (01/10/17 5:38 AM) URINE AND UA Glucose Negative Negative 01/10 [facility] (01/10/17 5:38 AM) URINE AND UA Turbidity Clear Clear 01/10 [facility] (01/10/17 5:38 AM) URINE AND UA Spec Grav <=1.005 <=1.030 01/10 [facility]
*NA*< [facility] br/>( 5:38 AM) Knee 1-2 Knee 1-2 Patient Name: ROSIO LAFLEUR 01/10 - Views Views /2016 - [facility] unilateral unilateral : 1950; Age: 66 years y/o Female DX DX MR: [id number] Read by: Calos Adames MD Dictated Date/time: [...] gastric the soft tissues and joint. SL: [id number] Chest Chest 1view EXAM: Chest x-ray one view (frontal) 01/10 - 1view DX DX /2016 - [facility] HISTORY:Coughing Read by: Paul Garnica MD Dictated [...] POC BUN 7 mg/dL 7 - 05/30 [facility] CHEM PANEL POC 43.0 % 36.0 - 05/30 Hematocrit 48.0 [facility] CHEM PANEL POC Glucose 124 mg/dL 70 - 99 05/30 [facility] CHEM PANEL POC Sodium 132 meq/L 135 - 145 05/30 [facility] CHEM PANEL POC Chloride 93 meq/L 95 - 109 05/30 [facility] CHEM PANEL POC 4.1 meq/L 3.5 - 5.1 05/30 Potassium [facility] CHEM PANEL POC 14.6 g/dL 12.0 - 05/30 Hemoglobin 16.0 [facility] CHEM PANEL POC BUN 9 mg/dL 7 - 02/28 [facility] CHEM PANEL POC Chloride 95 meq/L 95 - 109 02/28 [facility] CHEM PANEL POC 4.9 meq/L 3.5 - 5.1 02/28 Potassium /2014 [facility] CHEM PANEL POC Sodium 133 meq/L 135 - 145 02/28 [facility] CHEM PANEL POC 44.0 % 36.0 - 02/28 Hematocrit 48.0 [facility] CHEM PANEL POC 15.0 g/dL 12.0 - 02/28 Hemoglobin 16.0 [facility] CHEM PANEL POC Glucose 106 mg/dL 70 - 99 02/28 [facility] HEMATOLOGY POC INR 1.0 0.9 - 1.2 02/28 [facility] HEMATOLOGY POC PT 11.9 s 12.0 - 02/28 MH 14.7 /2015 [facility] Vital Signs Vital Sign Value Date Comments Source Heart Rate 86 01/12/2017 [facility] Temperature Oral (F) 98.2 F 01/12/2017 [facility] Respitory Rate 18 01/12/2017 [facility] Systolic (mm Hg) 154 01/12/2017 [facility] Diastolic (mm Hg) 81 01/12/2017 [facility] Respitory Rate 18 01/12/2017 [facility] Systolic (mm Hg) 137 01/12/2017 [facility] Diastolic (mm Hg) 83 01/12/2017 [facility] Temperature Oral (F) 98.6 F 01/12/2017 [facility] Heart Rate 85 01/12/2017 [facility] Heart Rate 94 01/12/2017 [facility] Temperature Oral (F) 99.2 F 01/12/2017 [facility] Systolic (mm Hg) 155 01/12/2017 [facility] Diastolic (mm Hg) 79 01/12/2017 [facility] Respitory Rate 18 01/12/2017 [facility] Weight 84.091 01/10/2017 [facility] BMI Calculated 29.92 01/10/2017 [facility] Height 167.64 cm 01/10/2017 [facility] Height 152.4 cm 01/06/2017 [facility] Weight 84.091 01/06/2017 [facility] BMI Calculated 36.21 01/06/2017 [facility] Systolic (mm Hg) 121 05/30/2015 [facility] Diastolic (mm Hg) 67 05/30/2015 [facility] Respitory Rate 15 05/30/2015 [facility] Systolic (mm Hg) 118 05/30/2015 [facility] Diastolic (mm Hg) 66 05/30/2015 [facility] Respitory Rate 13 05/30/2015 [facility] Respitory Rate 15 05/30/2015 [facility] Systolic (mm Hg) 121 05/30/2015 [facility] Diastolic (mm Hg) 56 05/30/2015 [facility] Height 167.64 cm 05/27/2015 [facility] BMI Calculated 30.73 05/27/2015 [facility] Weight 86.364 05/27/2015 [facility] Systolic (mm Hg) 143 02/28/2015 [facility] Diastolic (mm Hg) 79 02/28/2015 [facility] Systolic (mm Hg) 145 02/28/2015 [facility] Diastolic (mm Hg) 84 02/28/2015 [facility] Respitory Rate 15 02/28/2015 [facility] Systolic (mm Hg) 140 02/28/2015 [facility] Diastolic (mm Hg) 78 02/28/2015 [facility] Respitory Rate 17 02/28/2015 [facility] Respitory Rate 19 02/28/2015 [facility] Heart Rate 57 02/28/2015 [facility] BMI Calculated 30.73 02/26/2015 [facility] Weight 86.364 02/26/2015 [facility] Height 167.64 cm 02/26/2015 [facility] Encounters Location Location Encounter Encounter Reason Attending ADM DC Status Source Details Type Number For Provider Date Date Visit [facility] OBS Day [id number] Justin 02/28 02/28 [facility] [place] /2014 [facility] OBS Day [id number] [place] 05/30 05/30 [facility] [place] /2015 [facility] Inpatient [id number] [place] 01/10 01/12 [facility] [place] /2016 [facility] Procedures Procedure Code Date Perfomer Comments Source TKR -Total [id number] [facility] prosthetic 7 replacement of knee joint using cement Cholecystectomy [id number] [facility] Hysterectomy [id number] [facility] Procedure<sup>1</sup [id number] arthroscopy of [facility] > knee x2 Procedure<sup>2</sup [id number] open knee [facility] > surgery Rotator cuff [id number] right [facility] repair<sup>3</sup>
--- OUTSIDE RECORDS SUMMARY | 2018-08-23 15:09 | XMS REPORT ---
:1950 [facility] [address] [place] [id number] Care Team Providers Name Role Phone ELDER RONDON Unavailable Unavailable SVIA CAPPS Unavailable Unavailable SPRING JOSHI Unavailable Unavailable [...] Comments HEPATITIS B SURFACE ANTIBODY (BEAKER) (test ugbb=590) < mIU/mL <8.0 HEPATITIS A ANTIBODY, [id number] 14:42:00 Test Item Value Reference Range Comments HEPATITIS A IGG ANTIBODY (BEAKER) (test hdot=5478) Reactive Nonreactive HEPATITIS B SURFACE [id number] 14:23:00 Test Item Value Reference Range Comments HEPATITIS B SURFACE ANTIGEN (2) (BEAKER) (test Nonreactive Nonreactive fash=7070) HEPATITIS C [id number] 14:23:00 Test Item Value Reference Range Comments HEPATITIS C ANTIBODY (BEAKER) (test bobm=974) Nonreactive Nonreactive HEPATITIS B CORE ANTIBODY, [id number] 14:23:00 Test Item Value Reference Range Comments HEPATITIS B CORE TOTAL ANTIBODY (BEAKER) (test Nonreactive Nonreactive phec=254) HEPATIC FUNCTION [id number] 14:04:00 Test Item Value Reference Range Comments TOTAL PROTEIN (BEAKER) (test uzkr=639) 9.0 gm/dL 6.0-8.3 ALBUMIN (BEAKER) (test fxlw=9275) 4.2 g/dL 3.5-5.0 BILIRUBIN TOTAL (BEAKER) (test mojy=792) 0.3 mg/dL 0.2-1.2 BILIRUBIN DIRECT (BEAKER) (test dtog=572) 0.2 mg/dL 0.1-0.5 ALKALINE PHOSPHATASE (BEAKER) (test zmkg=601) 111 U/L 40-150 AST (SGOT) (BEAKER) (test qqns=933) 44 U/L 5-34 ALT (SGPT) (BEAKER) (test ooej=346) 30 U/L 6-55 BASIC METABOLIC [id number] 14:04:00 Test Item Value Reference Range Comments SODIUM (BEAKER) (test 129 meq/L 136-145 jlby=461) POTASSIUM (BEAKER) (test 4.0 meq/L 3.5-5.1 wmee=841) CHLORIDE (BEAKER) (test 94 meq/L 98-107 ssij=244) CO2 (BEAKER) (test 24 meq/L 22-29 rywg=535) BLOOD UREA NITROGEN 4 mg/dL 7-21 (BEAKER) (test wnel=784) CREATININE (BEAKER) (test 0.67 mg/dL 0.57-1.25 aqvo=476) GLUCOSE RANDOM (BEAKER) 98 mg/dL 70-105 (test xlox=383) CALCIUM (BEAKER) (test 9.7 mg/dL 8.4-10.2 kgpl=004) EGFR (BEAKER) (test 88 mL/min/1.73 sq m ESTIMATED GFR IS NOT hlvu=9585) ACCURATE CREATININE CLEARANCE IN PREDICTING GLOMERULAR FILTRATION RATE. ESTIMATED GFR IS NOT APPLICABLE FOR DIALYSIS PATIENTS. PROTHROMBIN [id number] 13:45:00 Test Item Value Reference Range Comments PROTIME (BEAKER) (test qfjk=128) 13.4 seconds 11.7-14.7 INR (BEAKER) (test mjho=078) 1.0 <=5.9 RECOMMENDED COUMADIN/WARFARIN INR THERAPY RANGESSTANDARD DOSE: 2.0 - 3.0 Includes: PROPHYLAXIS forvenous thrombosis, systemic embolization; TREATMENT for venous thrombosis and/or pulmonary embolus.HIGH RISK: Target INR is 2.5-3.5 for patients with mechanical heart valves.CBC W/PLT COUNT & AUTO [id number] 13:31:00 Test Item Value Reference Range Comments WHITE BLOOD CELL COUNT (BEAKER) (test ngai=442) 5.3 K/ L 3.5-10.5 RED BLOOD CELL COUNT (BEAKER) (test tmih=357) 4.61 M/ L 3.93-5.22 HEMOGLOBIN (BEAKER) (test cojv=451) 12.8 GM/DL 11.2-15.7 HEMATOCRIT (BEAKER) (test sghn=676) 39.8 % 34.1-44.9 MEAN CORPUSCULAR VOLUME (BEAKER) (test hrbv=857) 86.3 fL 79.4-94.8 MEAN CORPUSCULAR HEMOGLOBIN (BEAKER) (test 27.8 pg 25.6-32.2 seon=817) MEAN CORPUSCULAR HEMOGLOBIN CONC (BEAKER) (test 32.2 GM/DL 32.2-35.5 xtjc=653) RED CELL DISTRIBUTION WIDTH (BEAKER) (test 14.0 % 11.7-14.4 dcws=625) PLATELET COUNT (BEAKER) (test liul=008) 316 K/CU MM 150-450 MEAN PLATELET VOLUME (BEAKER) (test jfvt=016) 9.7 fL 9.4-12.3 NUCLEATED RED BLOOD CELLS (BEAKER) (test 0 /100 WBC 0-0 nybu=822) NEUTROPHILS RELATIVE PERCENT (BEAKER) (test 62 % hmqe=264) LYMPHOCYTES RELATIVE PERCENT (BEAKER) (test 22 % odck=436) MONOCYTES RELATIVE PERCENT (BEAKER) (test 12 % wypi=743) EOSINOPHILS RELATIVE PERCENT (BEAKER) (test 4 % pmru=524) BASOPHILS RELATIVE PERCENT (BEAKER) (test 1 % vcko=238) NEUTROPHILS ABSOLUTE COUNT (BEAKER) (test 3.27 K/ L 1.56-6.13 wzdb=079) LYMPHOCYTES ABSOLUTE COUNT (BEAKER) (test 1.14 K/ L 1.18-3.74 qoad=404) MONOCYTES ABSOLUTE COUNT (BEAKER) (test 0.62 K/ L 0.24-0.36 ifto=960) EOSINOPHILS ABSOLUTE COUNT (BEAKER) (test 0.19 K/ L 0.04-0.36 qmer=559) BASOPHILS ABSOLUTE COUNT (BEAKER) (test 0.07 K/ L 0.01-0.08 wffy=391) IMMATURE GRANULOCYTES-RELATIVE PERCENT (BEAKER) 0 % 0-1 (test tgcn=8840) COMPREHENSIVE METABOLIC [id number] 12:54:00 Test Item Value Reference Range Comments TOTAL PROTEIN (BEAKER) 8.0 gm/dL 6.0-8.3 Specimen moderately (test cgik=721) hemolyzed ALBUMIN (BEAKER) (test 3.7 g/dL 3.5-5.0 Specimen moderately vros=6829) hemolyzed ALKALINE PHOSPHATASE 77 U/L 40-150 (BEAKER) (test hnfg=451) BILIRUBIN TOTAL (BEAKER) 0.4 mg/dL 0.2-1.2 Specimen moderately (test ytaa=259) hemolyzed SODIUM (BEAKER) (test 130 meq/L 136-145 furx=454) POTASSIUM (BEAKER) (test 4.2 meq/L 3.5-5.1 Specimen moderately jkzr=664) hemolyzed CHLORIDE (BEAKER) (test 96 meq/L 98-107 obcl=632) CO2 (BEAKER) (test 24 meq/L 22-29 feix=526) BLOOD UREA NITROGEN 6 mg/dL 7-21 (BEAKER) (test upsf=374) CREATININE (BEAKER) (test 0.67 mg/dL 0.57-1.25 Specimen moderately ujek=927) hemolyzed GLUCOSE RANDOM (BEAKER) 152 mg/dL 70-105 (test wlyu=387) CALCIUM (BEAKER) (test 9.0 mg/dL 8.4-10.2 rsmm=064) AST (SGOT) (BEAKER) (test 44 U/L 5-34 Specimen moderately gplg=956) hemolyzed ALT (SGPT) (BEAKER) (test 27 U/L 6-55 Specimen moderately mhcm=767) hemolyzed EGFR (BEAKER) (test 88 mL/min/1.73 sq m ESTIMATED GFR IS NOT beqi=9575) ACCURATE CREATININE CLEARANCE IN PREDICTING GLOMERULAR FILTRATION RATE. ESTIMATED GFR IS NOT APPLICABLE FOR DIALYSIS PATIENTS. CBC W/PLT COUNT & AUTO [id number] 12:23:00 Test Item Value Reference Range Comments WHITE BLOOD CELL COUNT (BEAKER) (test tfmt=858) 3.4 K/ L 3.5-10.5 RED BLOOD CELL COUNT (BEAKER) (test grif=966) 4.14 M/ L 3.93-5.22 HEMOGLOBIN (BEAKER) (test myrf=068) 11.8 GM/DL 11.2-15.7 HEMATOCRIT (BEAKER) (test cjov=802) 36.8 % 34.1-44.9 MEAN CORPUSCULAR VOLUME (BEAKER) (test mopg=915) 88.9 fL 79.4-94.8 MEAN CORPUSCULAR HEMOGLOBIN (BEAKER) (test 28.5 pg 25.6-32.2 svpb=497) MEAN CORPUSCULAR HEMOGLOBIN CONC (BEAKER) (test 32.1 GM/DL 32.2-35.5 hdim=829) RED CELL DISTRIBUTION WIDTH (BEAKER) (test 15.5 % 11.7-14.4 tvwt=255) PLATELET COUNT (BEAKER) (test qxly=608) 303 K/CU MM 150-450 MEAN PLATELET VOLUME (BEAKER) (test gntu=369) 10.5 fL 9.4-12.3 NUCLEATED RED BLOOD CELLS (BEAKER) (test 0 /100 WBC 0-0 juvy=217) NEUTROPHILS RELATIVE PERCENT (BEAKER) (test 59 % uwdu=920) LYMPHOCYTES RELATIVE PERCENT (BEAKER) (test 22 % ikyd=284) MONOCYTES RELATIVE PERCENT (BEAKER) (test 16 % gntj=459) EOSINOPHILS RELATIVE PERCENT (BEAKER) (test 2 % kajz=623) BASOPHILS RELATIVE PERCENT (BEAKER) (test 1 % magv=630) NEUTROPHILS ABSOLUTE COUNT (BEAKER) (test 2.02 K/ L 1.56-6.13 qbbd=045) LYMPHOCYTES ABSOLUTE COUNT (BEAKER) (test 0.73 K/ L 1.18-3.74 nvzx=021) MONOCYTES ABSOLUTE COUNT (BEAKER) (test 0.53 K/ L 0.24-0.36 yykg=763) EOSINOPHILS ABSOLUTE COUNT (BEAKER) (test 0.07 K/ L 0.04-0.36 gipk=032) BASOPHILS ABSOLUTE COUNT (BEAKER) (test 0.04 K/ L 0.01-0.08 hwos=313) IMMATURE GRANULOCYTES-RELATIVE PERCENT (BEAKER) 0 % 0-1 (test ktef=2345) SEDIMENTATION [id number] 15:52:00 Test Item Value Reference Range Comments SEDIMENTATION RATE, ERYTHROCYTE (BEAKER) (test 48 mm/HR 0-30 dbfl=383) COMPREHENSIVE METABOLIC [id number] 14:48:00 Test Item Value Reference Range Comments TOTAL PROTEIN (BEAKER) 8.3 gm/dL 6.0-8.3 (test ycwe=117) ALBUMIN (BEAKER) (test 4.0 g/dL 3.5-5.0 eicp=7462) ALKALINE PHOSPHATASE 71 U/L 40-150 (BEAKER) (test tlnc=501) BILIRUBIN TOTAL (BEAKER) 0.5 mg/dL 0.2-1.2 (test yrik=387) SODIUM (BEAKER) (test 133 meq/L 136-145 idxt=719) POTASSIUM (BEAKER) (test 3.4 meq/L 3.5-5.1 dmaw=695) CHLORIDE (BEAKER) (test 95 meq/L 98-107 avyc=854) CO2 (BEAKER) (test 26 meq/L 22-29 dttz=986) BLOOD UREA NITROGEN 5 mg/dL 7-21 (BEAKER) (test olpy=859) CREATININE (BEAKER) (test 0.65 mg/dL 0.57-1.25 zrur=462) GLUCOSE RANDOM (BEAKER) 130 mg/dL 70-105 (test eitk=168) CALCIUM (BEAKER) (test 9.5 mg/dL 8.4-10.2 xfbz=000) AST (SGOT) (BEAKER) (test 31 U/L 5-34 ekxq=890) ALT (SGPT) (BEAKER) (test 22 U/L 6-55 pnxz=733) EGFR (BEAKER) (test 92 mL/min/1.73 sq m ESTIMATED GFR IS NOT rboz=3082) ACCURATE CREATININE CLEARANCE IN PREDICTING GLOMERULAR FILTRATION RATE. ESTIMATED GFR IS NOT APPLICABLE FOR DIALYSIS PATIENTS. CBC W/PLT COUNT & AUTO [id number] 14:36:00 Test Item Value Reference Range Comments WHITE BLOOD CELL COUNT (BEAKER) (test ksxa=120) 6.3 K/ L 4.0-10.0 RED BLOOD CELL COUNT (BEAKER) (test nwqx=086) 4.13 M/ L 4.00-5.00 HEMOGLOBIN (BEAKER) (test kish=602) 13.4 GM/DL 12.0-15.0 HEMATOCRIT (BEAKER) (test qkkg=130) 38.5 % 36.0-45.0 MEAN CORPUSCULAR VOLUME (BEAKER) (test edfg=699) 93.4 fL 82.0-99.0 MEAN CORPUSCULAR HEMOGLOBIN (BEAKER) (test 32.4 pg 27.0-33.0 ikds=405) MEAN CORPUSCULAR HEMOGLOBIN CONC (BEAKER) (test 34.7 GM/DL 32.0-36.0 jbpc=316) RED CELL DISTRIBUTION WIDTH (BEAKER) (test 12.4 % 10.3-14.2 rbom=537) PLATELET COUNT (BEAKER) (test ozza=479) 279 K/CU MM 150-430 MEAN PLATELET VOLUME (BEAKER) (test emay=683) 7.9 fL 6.5-10.5 NUCLEATED RED BLOOD CELLS (BEAKER) (test 0 /100 WBC 0-0 toic=022) NEUTROPHILS RELATIVE PERCENT (BEAKER) (test 53 % cnom=625) LYMPHOCYTES RELATIVE PERCENT (BEAKER) (test 25 % dzem=479) MONOCYTES RELATIVE PERCENT (BEAKER) (test 17 % pehb=827) EOSINOPHILS RELATIVE PERCENT (BEAKER) (test 4 % eufp=744) BASOPHILS RELATIVE PERCENT (BEAKER) (test 1 % nmas=411) NEUTROPHILS ABSOLUTE COUNT (BEAKER) (test 3.36 K/ L 1.80-8.00 nywt=960) LYMPHOCYTES ABSOLUTE COUNT (BEAKER) (test 1.59 K/ L 1.48-4.50 pgsi=014) MONOCYTES ABSOLUTE COUNT (BEAKER) (test 1.07 K/ L 0.00-1.30 twno=872) EOSINOPHILS ABSOLUTE COUNT (BEAKER) (test 0.24 K/ L 0.00-0.50 jout=606) BASOPHILS ABSOLUTE COUNT (BEAKER) (test 0.04 K/ L 0.00-0.20 iizk=630) 0.00
[2018-08-23 15:53] VITALS: BMI 30.3
[2018-08-23] MEDS ORDERED: ACETAMINOPHEN 325 MG TABLET PO PRN (16:00)
[2018-08-23] MEDS ORDERED: LOPERAMIDE HCL 2 MG CAPSULE PO PRN (16:00)
[2018-08-23] MEDS ORDERED: POLYETHYL GLY 3350 17 GM/DOSE PO PRN (16:00)
[2018-08-23] MEDS ORDERED: ONDANSETRON 4 MG (ODT) TAB PO PRN (16:00)
[2018-08-23] MEDS ORDERED: DIPHENHYDRAMINE 25 MG TAB/CAP PO PRN (16:00)
[2018-08-23] MEDS ORDERED: ONDANSETRON 4 MG/2 ML VIAL IV PRN (16:00)
[2018-08-23] MEDS: NACHLORIDE 0.45% 1,000 ML IV SCH (16:03)
[2018-08-23 17:09] LABS: Protime INR 1.08
[2018-08-23 17:18] LABS: Absolute Monocytes 2.1 K/uL (0.1-1.3); Absolute Neutrophil 7.6 K/uL (1.8-8.0); Eosinophils % 0.6 % (0-4.4); Hematocrit 37.6 % (36.0-45.0); Lymphocytes % 9.1 % (15.3-44.8); MPV 8.3 fL (7.6-11.3); Monocytes % 19.2 % (3.3-12.3); RBC Red Blood Cell Count 4.63 M/uL (3.86-4.86)
[2018-08-23] MEDS: METRONIDAZOLE 500mg IVPB 500 MG/100 ML BAG IV SCH (17:50)
[2018-08-23] MEDS: CIPROFLOXACIN 400mg IV 400 MG/200 ML BAG IV SCH ×2 (17:50→19:56)
[2018-08-23 18:05] LABS: ALT/SGPT 38 U/L (12-78); AST/SGOT 41 U/L (15-37); Albumin 3.5 g/dL (3.4-5.0); Alkaline Phosphatase 105 U/L (45-117); BUN Blood Urea Nitrogen 5 mg/dL (7-18); Bicarbonate 25 mmol/L (21-32); Bilirubin Direct 0.2 mg/dL (0-0.2); Bilirubin Total 0.5 mg/dL (0.2-1.0); Glucose Level 69 mg/dL (74-106); Magnesium 2.1 mg/dL (1.8-2.4); Phosphorus 2.6 mg/dL (2.5-4.9); Potassium 3.5 mmol/L (3.5-5.1); Protein, Total 8.5 g/dL (6.4-8.2); Sodium Level 130 mmol/L (136-145); Thyroid Stimulating Hormone 0.744 uIU/mL (0.360-3.740)
[2018-08-23] MEDS ORDERED: PNEUMOCOCCAL VACCINE 0.5 ML IMVAC ONE (18:30)
[2018-08-23 18:32] LABS: Urine Appearance CLOUDY; Urine Bilirubin NEGATIVE (NEG); Urine Blood 1+ (NEG); Urine Color YELLOW; Urine Glucose NEGATIVE (NEG); Urine Protein TRACE (NEG); Urine Urobilinogen 0.2 mg/dL (0.2-1.0); Urine pH 6.5 (5.0-7.0)
[2018-08-23 18:36] LABS: Urine Microscopic Reflex ORDER UMIC
[2018-08-23 18:47] LABS: Urine Bacteria LOADED /HPF (<20); Urine Culture Reflex Order NOT NEEDED; Urine RBC <5 /HPF (NONE SEEN)
[2018-08-23 18:48] LABS: Anisocytosis 1+; Blood Morphology Comment NOTED (NOT SEEN); Platelet Estimate ADEQ
[2018-08-23] MEDS ORDERED: GLUCAGON 1 MG/VIAL IM PRN (20:05)
[2018-08-23] MEDS ORDERED: D50W 25 GM/50 ML SYRINGE IV PRN (20:05)
[2018-08-23] MEDS ORDERED: COLESTIPOL 1 GM TAB PO PRN (20:26)
--- NOTE | 2018-08-23 20:50 | RAD REPORT ---
EXAM DESCRIPTION: CT - Abdomen Pelvis W Contrast - 08/23/2018 8:27 pm CLINICAL HISTORY: Abdominal pain. COMPARISON: 2011 TECHNIQUE: Computed axial tomography of the abdomen and pelvis was obtained. 100 cc Isovue-300 is ad ministered intravenously. Oral contrast was given. All CT scans are performed using dose optimization technique as appropriate and may include automated exposure control or mA/KV adjustment according to patient size. FINDINGS: Small low-density areas present within the right kidney which may indicate pyelonephritis. A 10 joleen meter isodense mass extends off of the left kidney. It appears minimally enlarged from the prior exam . Cholecystectomy Fatty liver The Spleen, pancreas and adrenals unremarkable Wall of the sigmoid colon appears mildly thickened. Appendix is borderline thickened. Stranding is not seen within the adjacent fat Mild anterior subluxation L5 on S1. Spondylolysis L5 IMPRESSION: Mild right pyelonephritis Minimal enlargement of a 10 millimeter left renal mass. It is recommended that the patient have an ul trasound for further evaluation Mild apparent thickening of the wall of the sigmoid colon probably secondary to incomplete distention . Mild colitis can also have this appearance. Borderline enlargement of the appendix probably is not significant. An early appendicitis can also syed ve this appearance. If the patient has clinical symptoms to suggest this then follow up CT examinatio n would be recommended
--- NOTE | 2018-08-23 20:51 | RAD REPORT ---
EXAM DESCRIPTION: Cyndie Kwon (2 Views)08/23/2018 8:39 pm CLINICAL HISTORY: Abdominal pain COMPARISON: August 2017 FINDINGS: The lungs appear clear of acute infiltrate. The heart is normal size IMPRESSION: No acute abnormalities displayed
[2018-08-23 20:53] LABS: MPV 7.7 fL (7.6-11.3)
[2018-08-23] MEDS: NORTRIPTYLINE HCL 10 MG CAP PO SCH (21:00)
[2018-08-23] MEDS: METOCLOPRAMIDE 5 MG TAB PO SCH (21:00)
[2018-08-23] MEDS: HOME MED 1 EA UNK (Mycophenolate Mofetil [Cellcept] 2 TAB) PO SCH (21:00)
[2018-08-23] MEDS: HYOSCYAMINE SULFATE 0.125 MG SL SCH (21:00)
[2018-08-23] MEDS: INSULIN -REGULAR HUMAN 50 UNIT/0.5 ML ML SQ SCH (21:00)
[2018-08-23] MEDS: LIDOCAINE 5% PATCH TOP SCH (21:00)
[2018-08-23] MEDS: [UNRECOGNIZED DRUG - REMARK] PO SCH (21:00)
[2018-08-23] MEDS: HOME MED 1 EA UNK (Metformin Hcl [Metformin Er Osmotic] 1,000 MG) PO SCH (21:00)
[2018-08-23 21:19] LABS: Platelet Estimate ADEQ
[2018-08-23] MEDS: ONDANSETRON 4 MG (ODT) TAB PO SCH (21:53)
[2018-08-23] MEDS: ALPRAZOLAM 0.5 MG TABLET PO SCH (21:53)
[2018-08-23] MEDS: HYDROCODONE/APAP 10/325 TAB PO SCH (21:54)
[2018-08-23] MEDS: ZOLPIDEM TARTRATE 10 MG TABLET PO SCH (21:54)
[2018-08-23] MEDS: PANTOPRAZOLE 40MG TABLET PO SCH (21:54)
[2018-08-23] MEDS: LOSARTAN POTASSIUM 50 MG TABLET PO SCH (21:54)
[2018-08-24] MEDS: METRONIDAZOLE 500mg IVPB 500 MG/100 ML BAG IV SCH ×3 (01:04→16:30)
[2018-08-24] MEDS: NACHLORIDE 0.45% 1,000 ML IV SCH ×3 (01:05→21:58)
[2018-08-24 04:48] LABS: Absolute Lymphocytes (CBC) 1.1 K/uL (0.7-4.9); Absolute Neutrophil 5.9 K/uL (1.8-8.0); Basophils % 0.7 % (0-1.3); Eosinophils % 1.7 % (0-4.4); Hematocrit 33.6 % (36.0-45.0); Lymphocytes % 11.8 % (15.3-44.8); MPV 7.8 fL (7.6-11.3); Monocytes % 21.9 % (3.3-12.3); RBC Red Blood Cell Count 4.18 M/uL (3.86-4.86)
[2018-08-24 05:04] LABS: BUN Blood Urea Nitrogen 5 mg/dL (7-18); Bicarbonate 27 mmol/L (21-32); Glucose Level 99 mg/dL (74-106); Magnesium 1.9 mg/dL (1.8-2.4); Potassium 3.4 mmol/L (3.5-5.1); Sodium Level 132 mmol/L (136-145)
[2018-08-24 05:08] LABS: Blood Morphology Comment NOT SEEN (NOT SEEN); Platelet Estimate ADEQ; Urine White Blood Cell Casts OK
--- NOTE | 2018-08-24 07:14 | EKG ---
Test Date: 2018-08-23 Test Time: 16:22:52 [employer]inder: [facility] MEASUREMENT RESULTS: Intervals: Rate: 77 MT: 124 QRSD: 80 QT: 396 QTc: 448 [place]: P: 61 MT: 124 QRS: 66 T: 86 INTERPRETIVE STATEMENTS: Normal sinus rhythm Normal ECG Compared to ECG 09/04/2017 03:17:27 No significant changes Electronically Signed On 08-24-18 07:12:40 CDT by Ricky Younger
[2018-08-24] MEDS: INSULIN -REGULAR HUMAN 50 UNIT/0.5 ML ML SQ SCH ×4 (07:30→20:51)
[2018-08-24] MEDS: HYOSCYAMINE SULFATE 0.125 MG SL SCH ×3 (09:00→20:50)
[2018-08-24] MEDS: HOME MED 1 EA UNK (Metformin Hcl [Metformin Er Osmotic] 1,000 MG) PO SCH ×2 (09:00→20:51)
[2018-08-24] MEDS: LIDOCAINE 5% PATCH TOP SCH ×3 (09:00→20:51)
[2018-08-24] MEDS: HOME MED 1 EA UNK (Mycophenolate Mofetil [Cellcept] 2 TAB) PO SCH ×2 (09:00→20:51)
[2018-08-24] MEDS: CIPROFLOXACIN 400mg IV 400 MG/200 ML BAG IV SCH ×2 (10:05→21:14)
[2018-08-24] MEDS: RANITIDINE 150 MG TABLET PO SCH (10:07)
[2018-08-24] MEDS: ENOXAPARIN 40 MG/0.4 ML SQ SCH (10:07)
[2018-08-24] MEDS: HYDROCODONE/APAP 10/325 TAB PO SCH ×3 (10:07→21:19)
[2018-08-24] MEDS: MODAFINIL 100 MG TAB PO SCH (10:08)
[2018-08-24] MEDS: ALPRAZOLAM 0.5 MG TABLET PO SCH ×3 (10:09→21:20)
[2018-08-24] MEDS: ONDANSETRON 4 MG (ODT) TAB PO SCH ×3 (10:09→21:19)
[2018-08-24] MEDS: ESCITALOPRAM 20 MG TAB PO SCH (10:09)
[2018-08-24] MEDS: METOCLOPRAMIDE 5 MG TAB PO SCH ×4 (10:10→20:52)
--- NOTE | 2018-08-24 11:07 | RAD REPORT ---
EXAM DESCRIPTION: US - Renal Ultrasound-Complete - 08/24/2018 10:06 am CLINICAL HISTORY: Left renal mass COMPARISON: CT study August 23, 2018 FINDINGS: The right kidney measures 11.5 x 4.9 x 4.9 cm. The left kidney measures 10.8 x 5.2 x 5.4 cm. Renal cortical thickness and echogenicity are normal. No hydronephrosis of either kidney. The sma ll 10 mm mass along the medial margin upper pole left kidney is not clearly identifiable at sonograph y. No bladder wall thickening or mass. No intraluminal stone or mass. Review of the CT imaging shows some heterogeneity of the right renal parenchyma suspicious for pyelon ephritis. This can be correlated with clinical findings. IMPRESSION: 1. The small 10 mm mass in the medial margin upper pole left kidney is not clearly seen at sonography. Mass cannot be further characterized. 2. Complex cyst and solid mass remain possibilities and finding can be monitored with periodic CT mahesh ging. 3. Suspected right-sided pyelonephritis based on ultrasound and CT review.
[2018-08-24] MEDS ORDERED: POTASSIUM CL SA 10 MEQ TAB PO ONE ×2 (16:00→23:43)
--- NOTE | 2018-08-24 18:29 | P.PN ---
Subjective Date of Service: 08/24/18 Chief Complaint: FEELS BETTER. Subjective: Improving (AMALIA IS DOING BETTER REG HER PAIN AND FEVER.) Review of Systems 10-point ROS is otherwise unremarkable Physical Examination - Vital Signs Temperature: 97.5 F Blood Pressure: 154/81 Pulse: 65 Respirations: 18 Pulse Ox (%): 100 - Physical Exam General: Mild distress, Moderate distress HEENT: Atraumatic, PERRLA, EOMI Neck: Supple, JVD not distended Respiratory: Clear to auscultation bilaterally, Normal air movement Cardiovascular: Regular rate/rhythm, Normal S1 S2 Gastrointestinal: Tenderness Musculoskeletal: No tenderness Integumentary: No rashes Neurological: Normal speech, Normal tone, Normal affect Lymphatics: No axilla or inguinal lymphadenopathy - Studies Laboratory Data (last 24 hrs) 08/24/18 04:34: Sodium 132 L, Potassium 3.4 L, BUN 5 L, Creatinine 0.57, Glucose 99, Magnesium 1.9 08/24/18 04:34: WBC 9.3 D, Hgb 11.8 L, Hct 33.6 L, Plt Count 269 08/23/18 20:45: Plt Count 283 D Microbiology Data (last 24 hrs): 08/24/18 12:20 Throat Group A Streptococcus Rapid Screen - Final 08/23/18 16:15 Blood - Blood Anaerobic Blood Culture - Final Medications List Reviewed: Yes Assessment And Plan - Current Problems (Diagnosis) (1) Pyelonephritis Current Visit: Yes Status: Acute Plan: IV ABX. WORKING. SHE IS BETTER CS PENDING.. (2) Sigmoid diverticulitis Current Visit: Yes Status: Acute Plan: CIPRO AND FLAGYL. (3) SLE (systemic lupus erythematosus related syndrome) Current Visit: Yes Status: Chronic Plan: DR. JOSHI IS MANAGING. (4) Autoimmune hepatitis Current Visit: Yes Status: Chronic Plan: CHRONIC SEVER ISSUES. HAS BEEN TO DR RONDON.
[2018-08-24] MEDS: [UNRECOGNIZED DRUG - REMARK] PO SCH (20:50)
[2018-08-24] MEDS: LOSARTAN POTASSIUM 50 MG TABLET PO SCH (21:15)
[2018-08-24] MEDS: ZOLPIDEM TARTRATE 10 MG TABLET PO SCH (21:15)
[2018-08-24] MEDS: PANTOPRAZOLE 40MG TABLET PO SCH (21:19)
[2018-08-24] MEDS: NORTRIPTYLINE HCL 10 MG CAP PO SCH (21:20)
[2018-08-25] MEDS: METRONIDAZOLE 500mg IVPB 500 MG/100 ML BAG IV SCH ×2 (00:12→10:32)
[2018-08-25] MEDS: HYOSCYAMINE SULF 0.125 MG TAB PO SCH ×3 (01:56→14:58)
[2018-08-25 06:02] LABS: Absolute Lymphocytes (CBC) 1.2 K/uL (0.7-4.9); Absolute Monocytes 1.1 K/uL (0.1-1.3); Basophils % 0.8 % (0-1.3); Eosinophils % 4.6 % (0-4.4); Hematocrit 35.4 % (36.0-45.0); Lymphocytes % 17.6 % (15.3-44.8); RBC Red Blood Cell Count 4.41 M/uL (3.86-4.86)
[2018-08-25 06:13] LABS: BUN Blood Urea Nitrogen 4 mg/dL (7-18); Bicarbonate 26 mmol/L (21-32); Glucose Level 99 mg/dL (74-106); Magnesium 1.8 mg/dL (1.8-2.4); Potassium 4.2 mmol/L (3.5-5.1); Sodium Level 134 mmol/L (136-145)
[2018-08-25] MEDS: INSULIN -REGULAR HUMAN 50 UNIT/0.5 ML ML SQ SCH ×2 (07:30→11:30)
[2018-08-25] MEDS: MODAFINIL 100 MG TAB PO SCH (09:00)
[2018-08-25] MEDS: HOME MED 1 EA UNK (Mycophenolate Mofetil [Cellcept] 2 TAB) PO SCH (09:00)
[2018-08-25] MEDS: HOME MED 1 EA UNK (Metformin Hcl [Metformin Er Osmotic] 1,000 MG) PO SCH (09:00)
--- NOTE | 2018-08-25 09:31 | EKG ---
Test Date: 2018-08-25 Test Time: 01:22:03 Jury Consultant: RT Rodriguez MEASUREMENT RESULTS: Intervals: Rate: 68 ND: 162 QRSD: 82 QT: 432 QTc: 459 [place]: P: 54 ND: 162 QRS: 25 T: 36 INTERPRETIVE STATEMENTS: Normal sinus rhythm Normal ECG Compared to ECG 08/23/2018 16:22:52 No significant changes Electronically Signed On 08-25-18 09:30:56 CDT by Rodger Betancur
[2018-08-25] MEDS: NACHLORIDE 0.45% 1,000 ML IV SCH (10:31)
[2018-08-25] MEDS: CIPROFLOXACIN 400mg IV 400 MG/200 ML BAG IV SCH (10:32)
[2018-08-25] MEDS: METOCLOPRAMIDE 5 MG TAB PO SCH ×2 (10:33→14:57)
[2018-08-25] MEDS: ENOXAPARIN 40 MG/0.4 ML SQ SCH (10:33)
[2018-08-25] MEDS: HYDROCODONE/APAP 10/325 TAB PO SCH ×2 (10:34→14:59)
[2018-08-25] MEDS: ALPRAZOLAM 0.5 MG TABLET PO SCH ×2 (10:34→14:57)
[2018-08-25] MEDS: RANITIDINE 150 MG TABLET PO SCH (10:34)
[2018-08-25] MEDS: ESCITALOPRAM 20 MG TAB PO SCH (10:35)
[2018-08-25] MEDS: ONDANSETRON 4 MG (ODT) TAB PO SCH ×2 (10:35→14:59)
[2018-08-25] MEDS: LIDOCAINE 5% PATCH TOP SCH ×2 (10:36→14:00)
[2018-08-25 11:54] VITALS: O2SAT 97
--- NOTE | 2018-08-25 13:50 | RAD REPORT ---
EXAM DESCRIPTION: MRI - Abdomen WWo Cont - 08/25/2018 1:29 pm CLINICAL HISTORY: Abdominal pain/renal mass COMPARISON: August 23, 2018 CT TECHNIQUE: Axial and coronal magnetic resonance imaging of the abdomen obtained. 19 cc MultiHance ad ministered intravenously FINDINGS: A 10 millimeter mass extends off of the medial aspect of the left kidney. It has intermedi ate to high signal on T2 weighted sequences. It demonstrates enhancement. Small bilateral renal cysts present. IMPRESSION: 10 millimeter enhancing left renal mass may represent neoplasm
[2018-08-25 16:38] VITALS: BP 136/63; TEMP 97.5
--- NOTE | 2018-08-25 21:48 | P.DS ---
Admission Date: 08/23/18 Discharge Date: 08/25/18 Disposition: ROUTINE DISCHARGE Discharge Condition: FAIR Reason for Admission: FEELS BETTER. - Problems (1) Pyelonephritis Status: Acute (2) Sigmoid diverticulitis Status: Acute (3) SLE (systemic lupus erythematosus related syndrome) Status: Chronic (4) Autoimmune hepatitis Status: Chronic Hospital Course: MRS. LAFLEUR CAME WITH ABDOMEN PAIN, FEVER , CHILLS, FOUND TO HAVE UTI, DIVERTICULITIS. SHE IMPROVED ON IV CIPRO AND FLAGYL. INCIDENTLY WE FOUND A RENAL MASS THAT IS SOLID ABOUT 1 CM CONFIRMED BY MRI. SHE IS STABLE FOR DISCHARGE. SHE WILL GO TO A UROLOGIST OF HER CHOICE ON OUTPATIENT BASIS. Vital Signs/Physical Exam: Temp Pulse Resp BP Pulse Ox 97.5 F 62 20 136/63 98 08/25/18 16:00 08/25/18 16:00 08/25/18 16:00 08/25/18 16:00 08/25/18 16:00 Laboratory Data at Discharge: WBC 6.6 K/uL (4.3-10.9) D 08/25/18 05:45 Hgb 12.0 g/dL (12.0-15.0) 08/25/18 05:45 Hct 35.4 % (36.0-45.0) L 08/25/18 05:45 Plt Count 306 K/uL (152-406) 08/25/18 05:45 PT 12.7 SECONDS (9.5-12.5) H 08/23/18 16:15 INR 1.08 08/23/18 16:15 APTT 36.6 SECONDS (24.3-36.9) 08/23/18 16:15 Sodium 134 mmol/L (136-145) L 08/25/18 05:45 Potassium 4.2 mmol/L (3.5-5.1) 08/25/18 05:45 BUN 4 mg/dL (7-18) L 08/25/18 05:45 Creatinine 0.55 mg/dL (0.55-1.3) 08/25/18 05:45 Glucose 99 mg/dL (74-106) 08/25/18 05:45 Phosphorus 2.6 mg/dL (2.5-4.9) 08/23/18 16:15 Magnesium 1.8 mg/dL (1.8-2.4) 08/25/18 05:45 Total Bilirubin 0.5 mg/dL (0.2-1.0) 08/23/18 16:15 AST 41 U/L (15-37) H 08/23/18 16:15 ALT 38 U/L (12-78) 08/23/18 16:15 Alkaline Phosphatase 105 U/L (45-117) 08/23/18 16:15 Home Medications: ALPRAZolam [Xanax] 0.5 mg PO TID 08/23/18 Colestipol HCl [Colestid] 1 gm PO Q12H PRN 08/23/18 Escitalopram Oxalate [Lexapro] 20 mg PO DAILY 08/23/18 Hydrocodone 10/APAP 325 [[place] 10/325*] 1 tab PO TID 08/23/18 Hyoscyamine Sulfate 0.125 mg SL TID 08/23/18 Levocetirizine Dihydrochloride [Allergy Relief] 2 tab PO BEDTIME 08/23/18 Lidocaine 5% Patch [Lidoderm 5% Patch*] 1 patch TOP TID 08/23/18 Losartan Potassium 25 mg PO BEDTIME 08/23/18 Metformin HCl [Metformin ER Osmotic] 1,000 mg PO BID 08/23/18 Metoclopramide HCl [Reglan] 10 mg PO QID 08/23/18 Modafinil [Provigil] 1 tab PO DAILY 08/23/18 Mycophenolate Mofetil [Cellcept] 2 tab PO BID 08/23/18 Nortriptyline HCl [Pamelor] 3 tab PO BEDTIME 08/23/18 Omeprazole [Prilosec] 40 mg PO BEDTIME 08/23/18 Ondansetron [Zofran] 4 mg PO TID 08/23/18 Ranitidine HCl [Zantac] 300 mg PO DAILY 08/23/18 Zolpidem Tartrate 10 mg PO BEDTIME 08/23/18 Zolpidem Tartrate [Ambien] 1 tab PO BEDTIME 08/23/18 Ciprofloxacin HCl [Cipro 500 MG Tablet] 500 mg PO BID #20 tab 08/25/18 metroNIDAZOLE [Flagyl] 250 mg PO Q8H #30 tablet 08/25/18 New Medications: Ciprofloxacin HCl [Cipro 500 MG Tablet] 500 mg PO BID #20 tab metroNIDAZOLE [Flagyl] 250 mg PO Q8H #30 tablet Patient Discharge Instructions: ASK ABOUT RENAL MASS 1 CM. I WILL REFER YOU TO UROLOGIST AT NEXT VISIT. SEE YOU IN ONE WEEK. Followup: Kristian Torres MD [Primary Care Provider] -
== END 2018-08-25 16:35 | disposition home or self-care (01) ==
LOC: 4TH 15:01
PROVIDERS: ADMIT Internal Medicine; ATTEND Internal Medicine
DX: N10 Acute pyelonephritis (principal); K57.32 Diverticulitis of large intestine without perforation or abscess without bleeding; M32.9 Systemic lupus erythematosus, unspecified; K75.4 Autoimmune hepatitis; Z88.0 Allergy status to penicillin; Z88.2 Allergy status to sulfonamides; E11.9 Type 2 diabetes mellitus without complications
CPT/HCPCS: 93005 ×2; 87040 ×2; 87070; 87088; 85025 ×3; 87086; 80048 ×3; 36415 ×3; 83735 ×3; 87205; 84100; 85049; 84132; 85610; 82962 ×8; 80076; 87081; 85730; 84443; 87077; 87186; 82607; 82306; 74177; 71046; 74183; 76770; Q9967; A9577; G0379; J1650 ×2; J0744 ×4; G0378; 81003; 81015

== ENCOUNTER 2018-12-30 10:02 | Emergency (ER) | payer OTHER ==
--- OUTSIDE RECORDS SUMMARY | 2018-12-30 10:05 | XMS REPORT | Clinical Summary ---
:1950 Author Organization [employer] Address [address] [place] [address] Care Team Providers Name Role Phone Kristian Torres MD Primary Care Provider Allergies Active Allergy Reactions Severity Noted Date Comments Sulfamethoxazole-Trimethoprim Palpitations Low 10/28/2015 Ciprofloxacin GI Intolerance Medium 02/12/2016 Nausea Codeine Itching 02/12/2016 Chest pain Morphine Sulfate Itching 09/07/2012 Medications Medication Sig Dispensed Refills Start End Status Date Date losartan (COZAAR) Take 100 mg by 0 Active 100 MG tablet mouth nightly. metFORMIN Take 500 mg by 0 Active (GLUCOPHAGE) 500 MG mouth 2 (two) tablet times a day with meals. zolpidem (AMBIEN) Take 10 mg by 0 Active 10 mg tablet mouth. ALPRAZolam (XANAX) Take 0.5 mg by 0 01/06/20 Active 0.5 MG tablet mouth 3 (three) 16 times a day as needed. for anxiety hyoscyamine Take 125 mcg by 5 01/20/20 Active (ANASPAZ,LEVSIN) mouth 3 (three) 16 0.125 mg tablet times a day. metoclopramide Take 10 mg by 3 01/01/20 Active (REGLAN) 10 MG mouth 4 (four) 16 tablet times a day. modafinil Take 200 mg by 0 01/14/20 Active (PROVIGIL) 200 MG mouth every 16 tablet morning. omeprazole Take 40 mg by 3 11/06/19 Active (PriLOSEC) 40 MG mouth once daily. 16 capsule ondansetron TAKE 1 TABLET BY 1 01/11/20 Active (ZOFRAN) 4 MG MOUTH EVERY 8 16 tablet HOURS NEEDED FOR NAUSEA/VOMIT escitalopram Take 40 mg by 0 Active (LEXAPRO) 20 MG mouth daily. tablet HYDROcodone-acetami TAKE 1/2 TABLT BY 0 07/29/19 Active nophen (NORCO) MOUTH 3 TIMES 17 10-325 mg per DAILY FOR 28 DAYS tablet levocetirizine Take by mouth 0 Active dihydrochloride nightly. (XYZAL ORAL) ranitidine (ZANTAC) Take 300 mg by 0 Active 150 MG tablet mouth daily. nortriptyline nortriptyline 10 0 Active (PAMELOR) 10 MG mg capsule capsule lidocaine 0 06/21/19 Active (LIDODERM) 5 % 19 cevimeline (EVOXAC) Take 1 capsule 90 capsule 3 08/18/19 Active 30 mg capsule (30 mg total) by 19 020 mouth 3 (three) times a day. TRINTELLIX 10 mg 0 12/13/19 Active tablet 19 azaTHIOprine TAKE 2 TABLETS 120 tablet 5 12/21/19 Active (IMURAN) 50 mg TWICE DAILY 19 019 tabletIndications: Other systemic lupus erythematosus with other organ involvement (HCC) inFLIXimab Infuse 600 mg 0 03/29/20 Discontinued (REMICADE) 100 mg into a venous 13 019 (Therapy injection catheter. completed) ranitidine (ZANTAC) Take 75 mg by 0 Discontinued 75 MG tablet mouth. 019 (Dose adjustment) gabapentin TAKE ONE CAPSULE 1 01/23/20 Discontinued (NEURONTIN) 100 MG BY MOUTH 3 TIMES 16 019 (Therapy capsule A DAY STOP LYRICA completed) potassium chloride Take 20 mEq by 1 11/06/19 Discontinued (K-DUR) 20 MEQ CR mouth once daily. 16 019 (Therapy tablet completed) SUMAtriptan TK 1 T PO QD PRN. 3 01/23/20 Discontinued (IMITREX) 100 MG 16 019 (Therapy tablet completed) furosemide (LASIX) Take 40 mg by 0 07/30/19 Discontinued 40 mg tablet mouth daily. 17 019 (Therapy completed) azaTHIOprine Take 3 pills bid 270 tablet 1 06/01/19 Discontinued (IMURAN) 50 mg 18 019 (Therapy tablet completed) pyridoxine, vitamin Take 100 mg by 0 Discontinued B6, (B-6) 100 MG mouth. 019 (Therapy tablet completed) mycophenolate Take 1 tablet 60 tablet 5 08/05/19 Discontinued (CELLCEPT) 500 mg (500 mg total) by (Reorder) tabletIndications: mouth 2 (two) Positive KUSHAL times a day for (antinuclear 180 days. antibody) mycophenolate Take 2 pills bid 120 tablet 6 09/13/19 Discontinued (CELLCEPT) 500 mg (Therapy tabletIndications: completed) Positive KUSHAL (antinuclear antibody) [id number] Take 1 kit by 1 each 0 10/03/19 [id number] mouth once for 1 (MOVIPREP) dose. 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) (Primary Dx); MD Paula Encounter for long-term (current) use of high-risk medication 10/30/2018 Telephone Rheumatology Tamara Salinas MA 10/11/2018 Surgery Gastroenterology Raza Kaye EGD W/ BX, FRED Treadwell MD 10/11/2018 Anesthesia Event Gastroenterology Ronal Azar MD Dhother, Elliot Klein MD 10/11/2018 Hospital Gastroenterology Raza Kaye Encounter MD Mile 10/02/2018 Office Visit Gastroenterology Raza Kaye Gastroesophageal reflux disease, esophagitis presence not specified (Primary Dx); MD Mile Gastroparesis; Crohn's disease of both small and large intestine without complication (HCC); Hx of cholecystectomy 09/19/2018 Office Visit Rheumatology Cristopher Bettencourt Crohn's disease of colon with complication (HCC) (Primary Dx); MD Paula Encounter for long-term (current) use of high-risk medication; Positive KUSHAL (antinuclear antibody); Type 2 diabetes mellitus without complication, without long-term current use of insulin (HCC); Mixed hyperlipidemia; Essential hypertension; Generalized OA 09/12/2018 Orders Only Rheumatology Tamara Salinas, Positive KUSHAL MA (antinuclear antibody) 08/17/2018 Orders Only Rheumatology Tamara Salinas MA 08/04/2018 Office Visit Rheumatology Cristopher Bettencourt Positive KUSHAL ( antinuclear antibody) (Primary Dx); MD Paula Encounter for long-term (current) use of high-risk medication; Polypharmacy; Mixed hyperlipidemia; Essential hypertension; Type 2 diabetes mellitus without complication, without long-term current use of insulin (HCC); PAULSON (nonalcoholic steatohepatitis); Autoimmune hepatitis (HCC); 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); GERD without esophagitis; Gastroparesis; Generalized OA; Inflammatory arthritis 07/19/2018 Orders Only Rheumatology Cristopher Bettencourt Positive KUSHAL ( antinuclear antibody) (Primary Dx); MD Paula Weakness 07/07/2018 Telephone Gastroenterology Ashvin Singletary MA 07/07/2018 Telephone Gastroenterology Shayan Cardona RN 07/06/2018 Telephone Gastroenterology Ashvin Singletary MA 07/03/2018 Office Visit Rheumatology Cristopher Bettencourt Inflammatory arthritis (Primary Dx); MD Paula Positive KUSHAL (antinuclear antibody); Crohn's disease of colon with complication (HCC); Autoimmune hepatitis (HCC); Encounter for long-term (current) use of high-risk medication 02/02/2018 Telephone Rheumatology Cristopher Bettencourt MD after 12/29/2017 Family History Relation Name Status Comments Father Mother Social History Tobacco Use Types Packs/Day Years Used Date Never Smoker Smokeless Tobacco: Never Used Alcohol Use Drinks/Week oz/Week Comments No Sex Assigned at Date Recorded Female 10/01/2018 6:45 PM CDT Job Start Date Occupation Industry Not on file Not on file Not on file Travel History Travel Start Travel End No recent travel history available. Last Filed Vital Signs Vital Sign Reading Time Taken Comments Blood Pressure 151/95 12/20/2018 11:19 AM CDT Pulse 75 12/20/2018 11:19 AM CDT Temperature 36.8 C (98.2 F) 12/20/2018 11:19 AM CDT Respiratory Rate 18 12/20/2018 11:19 AM CDT Oxygen Saturation 98% 12/20/2018 11:19 AM CDT Inhaled Oxygen Concentration - - Weight 87.5 kg (193 lb) 12/20/2018 11:19 AM CDT Height 167.6 cm (5' 6") 12/20/2018 11:19 AM CDT Body Mass Index 31.15 12/20/2018 11:19 AM CDT Plan of Treatment Date Type Specialty Care Team Description 03/13/2019 Office Visit Gastroenterology Raza Kaye MD [address] [facility] [address] [place] [address] [phone] 03/29/2019 Office Visit Rheumatology Cristopher Bettencourt MD [address] [facility] [address] [place], [place] [id number] Health Maintenance Due Date Last Done Comments DIABETIC RETINAL EYE EXAM 1950 DIABETIC FOOT EXAM 11/24/1961 BREAST CANCER SCREENING 11/24/2001 COLONOSCOPY SCREENING 11/24/2001 SHINGLES VACCINES (#1) 11/24/2001 65+ PNEUMOCOCCAL VACCINE (1 of 2 - PCV13) 11/24/2016 INFLUENZA VACCINE 11/23/2018 Procedures Procedure Name Priority Date/Time Associated Comments Diagnosis TPMT GENOTYPING Routine 12/20/2018 Encounter for Results for 11:34 AM CDT long-term this (current) use of procedure are high-risk in the medication results Other systemic section. lupus erythematosus with other organ involvement (HCC) URINALYSIS, AUTOMATED WITH Routine 12/20/2018 Encounter for Results for MICROSCOPY 11:34 AM CDT long-term this (current) use of procedure are high-risk in the medication results section. SEDIMENTATION RATE Routine 12/20/2018 Other systemic Results for 11:34 AM CDT lupus this erythematosus with procedure are other organ in the involvement (HCC) results section. C-REACTIVE PROTEIN Routine 12/20/2018 Other systemic Results for 11:34 AM CDT lupus this erythematosus with procedure are other organ in the involvement (HCC) results section. COMPREHENSIVE METABOLIC PANEL Routine 12/20/2018 Encounter for Results for 11:34 AM CDT long-term this (current) use of procedure are high-risk in the medication results section. CBC WITH PLATELET AND Routine 12/20/2018 Encounter for Results for DIFFERENTIAL 11:34 AM CDT long-term this (current) use of procedure are high-risk in the medication results section. POC GLUCOSE Routine 10/11/2018 Results for 2:12 PM CDT this procedure are in the results section. FRED TEST Routine 10/11/2018 Results for 1:06 PM CDT this procedure are in the results section. COLONOSCOPY 10/11/2018 Crohn's disease of 12:51 PM CDT both small and large intestine without complication (HCC) Gastric reflux ESOPHAGOGASTRODUODENOSCOPY 10/11/2018 Crohn's disease of (EGD) 12:51 PM CDT both small and large intestine without complication (HCC) Gastric reflux POC GLUCOSE Routine 10/11/2018 Results for 12:49 PM CDT this procedure are in the results section. SURGICAL PATHOLOGY REQUEST Routine 10/11/2018 Results for 9:59 AM CDT this procedure are in the results section. STOOL CULTURE Routine 07/10/2018 Crohn's disease of Results for 10:52 AM CDT colon with this complication (HCC) procedure are in the results section. OCCULT BLOOD, STOOL Routine 07/10/2018 Crohn's disease of Results for 10:52 AM CDT colon with this complication (HCC) procedure are in the results section. QUANTIFERON-TB GOLD PLUS, 1 Routine 07/10/2018 Results for TUBE 10:48 AM CDT this procedure are in the results section. PROTEINASE-3 ANTIBODY Routine 07/10/2018 Crohn's disease of Results for 10:48 AM CDT colon with this complication (HCC) procedure are in the results section. LIVER-KIDNEY MICROSOME AB, IGG Routine 07/10/2018 Autoimmune Results for 10:48 AM CDT hepatitis (HCC) this procedure are in the results section. F-ACTIN (SMOOTH MUSCLE) Routine 07/10/2018 Autoimmune Results for ANTIBODY, IGG 10:48 AM CDT hepatitis (HCC) this procedure are in the results section. ANTI MITOCHONDRIA TITER Routine 07/10/2018 Autoimmune Results for 10:48 AM CDT hepatitis (HCC) this procedure are in the results section. SSA/SSB ANTIBODY Routine 07/10/2018 Positive KUSHAL Results for 10:48 AM CDT (antinuclear this antibody) procedure are in the results section. RHEUMATOID FACTOR Routine 07/10/2018 Inflammatory Results for 10:48 AM CDT arthritis this procedure are in the results section. MYELOPEROXIDASE ANTIBODY (MPO) Routine 07/10/2018 Crohn's disease of Results for 10:48 AM CDT colon with this complication (HCC) procedure are in the results section. CYCLIC CITRULLINATED PEPTIDE Routine 07/10/2018 Inflammatory Results for AB, IGG 10:48 AM CDT arthritis this procedure are in the results section. C4 COMPLEMENT COMPONENT Routine 07/10/2018 Positive KUSHAL Results for 10:48 AM CDT (antinuclear this antibody) procedure are in the results section. C3 COMPLEMENT COMPONENT Routine 07/10/2018 Positive KUSHAL Results for 10:48 AM CDT (antinuclear this antibody) procedure are in the results section. KUSHAL SCREEN W IFA W REFLEX TO Routine 07/10/2018 Positive KUSHAL Results for TITER 10:48 AM CDT (antinuclear this antibody) procedure are in the results section. ANCA SCREEN WITH REFLEX TO ANCA Routine 07/10/2018 Inflammatory Results for TITER 10:48 AM CDT arthritis this procedure are in the results section. after 12/29/2017 Results TPMT Genotyping (12/20/2018 11:34 AM CDT) TPMT genotype SEE NOTE [facility] Comment: DIAGNOSTICS/TRAM RESULT: NEGATIVE FOR POOR METABOLIZER ALLELES (GENOTYPE S [facility] TPMT*1/TPMT*1) INTERPRETATION: Analysis of DNA indicates that this patient does not carry any of the TPMT deficiency variants tested. This result does not rule out the possibility that he or she is a carrier of one or more rare variants causing an intermediate (IM) or poor metabolizer (PM) phenotype. Laboratory results and submitted clinical information reviewed by Betina Caraballo, Ph.D., [facility], [facility]. Thiopurine S-methyltranferase (TPMT) is an enzyme involved in the metabolism of drugs such as azathioprine and 6- mercaptopurine. Deficiency of TPMT activity is caused by mutations in the TPMT gene on chromosome 6. This test detects the four most common deficiency variants [TPMT*2 (c.238G>C in exon 5), TPMT*3A (c.460G>A in exon 7 and c.719A>G in exon 10), TPMT*3B (c.460G>A) and TPMT*3C (c.719A>G in exon 10)]. Approximately 10% of the -Syrian and populations carry one of these four deficiency alleles. If none of these variants are detected for a chromosome, the reported allele will be TPMT*1, however, this result is only inferred. This test cannot rule out the presence of rare variants. The variants are detected by three separate real-time PCR reactions in exons 5, 7 and 10 of the TPMT gene. Each reaction contains two primers for amplifying the sequence of interest and two fluorophore (dye) containing probes for allele detection. The presence of two probes in each reaction allows for genotyping variant and/or wild-type alleles at the polymorphic site in a DNA target sequence. The assay determines the genotype based on the change in fluorescence of the dyes associated with the allele specific probes. DNA-based testing is highly accurate, but rare false negative/ false positive results may occur. Please contact the laboratory if you have questions about these results. Since genetic variation and other problems can affect the accuracy of direct mutation testing, the results should always be interpreted in light of clinical and familial data. This test was developed and its analytical performance characteristics have been determined by [facility]. It has not been cleared or approved by FDA. This assay has been validated pursuant to the CLIA regulations and is used for clinical purposes. Specimen Blood Narrative Performed At FASTING:NO [facility] FASTING: NO Resulting Agency Comment Performing Organization Information: Site ID: [id number] Name: [facility], Address: [address] [place] [phone] Director: Kaye Mendieta MD,PhD,JENIFER Performing Organization Address City/State/Zipcode Phone Number [facility] [employer] [address] [place] [id number] [facility] Urinalysis, automated with microscopy (12/20/2018 11:34 AM CDT) Color, UA YELLOW YELLOW [facility] [place] Appearance CLEAR CLEAR [facility] [place] Specific gravity, 1.009 1.001 - 1.035 [facility] urine [place] pH, urine 7.0 5.0 - 8.0 [facility] [place] Glucose, urine NEGATIVE NEGATIVE [facility] [place] Bilirubin, UA NEGATIVE NEGATIVE [facility] [place] Ketones, UA NEGATIVE NEGATIVE [facility] [place] Occult blood, urine NEGATIVE NEGATIVE [facility] [place] Protein, UA NEGATIVE NEGATIVE [facility] [place] Nitrite, UA NEGATIVE NEGATIVE [facility] [place] Leukocyte esterase, TRACE (A) NEGATIVE [facility] UA [place] WBC, UA 0-5 < OR=5 /HPF [facility] [place] RBC, UA NONE SEEN < OR=2 /HPF [facility] [place] Squamous epithelial NONE SEEN < OR=5 /HPF [facility] cells, UA [place] Bacteria, UA NONE SEEN NONE SEEN /HPF [facility] [place] Hyaline casts, UA NONE SEEN NONE SEEN /LPF [facility] [place] Specimen Urine Narrative Performed At FASTING:NO [facility] FASTING: NO Resulting Agency Comment Performing Organization Information: Site ID: [id number] [facility] Address: [address] [place] [phone] Director: Cade Chavez Performing Organization Address [facility] [place] [address] Sedimentation rate (12/20/2018 11:34 AM CDT) Sedimentation rate 34 (H) < OR=30 mm/h [employer] [place] Specimen Blood Narrative Performed At FASTING:NO [facility] FASTING: NO Resulting Agency Comment Performing Organization Information: Site ID: [id number] Name: [facility] Address: [address] [place] [phone] Director: Cade Chavez Performing Organization Address [facility] Vegas[facility] Phone Number [employer] [address] [address] CBC with platelet and differential (12/20/2018 11:34 AM CDT) WBC 5.9 3.8 - 10.8 [facility] Thousand/uL [place] RBC 4.35 3.80 - 5.10 [facility] Million/uL [place] HGB 11.6 (L) 11.7 - 15.5 [facility] g/dL [place] HCT 36.0 35.0 - 45.0 % [facility] [place] MCV 82.8 80.0 - 100.0 fL [facility] [place] MCH 26.7 (L) 27.0 - 33.0 pg [facility] [place] MCHC 32.2 32.0 - 36.0 [facility] g/dL [place] RDW 14.6 11.0 - 15.0 % [facility] [place] Platelet count 340 140 - 400 [facility] Thousand/uL [place] MPV 10.3 7.5 - 12.5 fL [facility] [place] Neutrophils, absolute 3,823 1,500 - 7,800 [facility] cells/uL [place] Lymphocytes, absolute 1,198 850 - 3,900 [facility] cells/uL [place] Monocytes, absolute 690 200 - 950 [facility] cells/uL [place] Eosinophils, absolute 100 15 - 500 [facility] cells/uL [place] Basophils, absolute 89 0 - 200 [facility] cells/uL [place] Neutrophils 64.8 % [facility] Lymphocytes 20.3 % [facility] Monocytes 11.7 % [facility] [place] Eosinophils 1.7 % [facility] [place] Basophils + RC 1.5 % [facility] [place] Specimen Blood Narrative Performed At FASTING:NO [facility] FASTING: NO Resulting Agency Comment Performing Organization Information: Site ID: [id number] Name: [facility] Address: [address] [place] [phone] Director: Cade Chavez Performing Organization Address [facility] Vegas[facility] Phone Number [facility] [employer] [place] [phone] C-reactive protein (12/20/2018 11:34 AM CDT) CRP 4.4 <8.0 mg/L [facility] [employer] [place] Specimen Blood Narrative Performed At FASTING:NO [facility] FASTING: NO Resulting Agency Comment Performing Organization Information: Site ID: [id number] Name: [facility] Address: [address] [place] [phone] Director: Cade Chavez Performing Organization Address [facility] Phone Number [facility] [place] [address] Comprehensive metabolic panel (12/20/2018 11:34 AM CDT) Glucose 58 (L) 65 - 139 [employer] Comment: mg/dL [place] Non-fasting reference interval BUN 5 (L) 7 - 25 mg/dL [employer] [place] Creatinine 0.61 0.50 - 0.99 [facility] Comment: mg/dL [place] For patients >49 years of age, the reference limit for Creatinine is approximately 13% higher for people identified as -Syrian. EGFR Non-Afr. 94 > OR=60 [facility] Syrian mL/min/1.73m [place] 2 EGFR 109 > OR=60 [facility] Syrian mL/min/1.73m [place] 2 BUN/creatinine 8 6 - 22 [facility] ratio (calc) [place] Sodium 129 (L) 135 - 146 [facility] mmol/L [place] Potassium 4.4 3.5 - 5.3 [facility] mmol/L [place] Chloride 93 (L) 98 - 110 [facility] mmol/L [place] CO2 25 20 - 32 [facility] mmol/L [place] Calcium 9.3 8.6 - 10.4 [facility] mg/dL [place] Protein 8.2 (H) 6.1 - 8.1 [facility] g/dL [place] Albumin, S 4.1 3.6 - 5.1 [facility] g/dL [place] Globulin, total 4.1 (H) 1.9 - 3.7 [facility] g/dL (calc) [place] Albumin/globulin 1.0 1.0 - 2.5 [facility] ratio (calc) [place] Total bilirubin 0.3 0.2 - 1.2 [facility] mg/dL [place] Alkaline 106 33 - 130 U/L [employer] phosphatase [place] AST 40 (H) 10 - 35 U/L [facility] [place] ALT 36 (H) 6 - 29 U/L [employer] [place] Specimen Blood Narrative Performed At FASTING:NO [facility] FASTING: NO Resulting Agency Comment Performing Organization Information: Site ID: [id number] [facility]: [facility] Address: [address] [place] [phone] Director: Cade Chavez Performing Organization Address City/State/Zipcode Phone Number [employer] [place] [phone] POC glucose (10/11/2018 2:12 PM CDT)Only the most recent of2 resultswithin the time period is included. [facility] POC glucose 120 (H) 65 - 99 mg/dL KAVON HERNANDEZ Comment: [facility] Notified RN Meter ID: [id number] Bacteriologist Food: Thomas Baker Specimen Performing Organization Address City/State/Zipcode Phone Number [facility] [address] [place] [address] [facility] [address] [address] FRED test (10/11/2018 1:06 PM CDT) [facility] FRED test Negative after 24 hours. KAVON ROMAN CATHOLIC Comment: HOSPITAL Specimen Information Specimen Source: Biopsy Specimen Site: Abdominal Specimen Biopsy - Abdominal Performing Organization Address City/State/Zipcode Phone Number [facility] [address] [place] [address] GENOMIC MEDICINE [facility] [address] [place] [address] Surgical pathology request (10/11/2018 9:59 AM CDT) [facility] Surgical pathology See link below [facility] report for PDF Lab PATHOLOGY AND Report GENOMIC MEDICINE Result status This is Final [facility] Report for PATHOLOGY AND [id number] [facility] MEDICINE Specimen Performing Organization Address [facility] Phone Number [facility] [address] [place] [phone] GENOMIC MEDICINE Occult blood, stool (07/10/2018 10:52 AM CDT) Fecal globin SEE NOTE [facility] result Comment: [place] FECAL GLOBIN BY IMMUNOCHEMISTRY MICRO NUMBER:[id number] TEST STATUS: FINAL SPECIMEN SOURCE: INSURE () FOBT TEST CARD SPECIMEN QUALITY:ADEQUATE RESULT:Not Detected Specimen Stool Narrative Performed At FASTING:YES [facility] COLLECTION KIT GIVEN TO PATIENT. PATIENT ADVISED TO RETURN. FASTING: YES Resulting Agency Comment Performing Organization Information: Site ID: [id number] Name: [facility] Address: [address] [place] [phone] Director: Rosalinda Vazquez Performing Organization Address City/[facility]/[place]code [place] [address] Stool culture (07/10/2018 10:52 AM CDT) Shiga toxin isolate SEE NOTE [facility] Comment: [place] [place] SHIGA TOXINS, EIA W/RFL TO E.COLI O157 CULTURE MICRO NUMBER:[id number] TEST STATUS: FINAL SPECIMEN SOURCE: STOOL SPECIMEN QUALITY:ADEQUATE RESULT:Not Detected Campylobacter SEE NOTE [facility] culture isolate Comment: [place] CAMPYLOBACTER, CULTURE MICRO NUMBER:[id number] TEST STATUS: FINAL SPECIMEN SOURCE: STOOL SPECIMEN QUALITY:ADEQUATE RESULT:No enteric Campylobacter isolated Shiga toxin isolate SEE NOTE [facility] Comment: [place] SALMONELLA AND SHIGELLA, CULTURE MICRO NUMBER:[id number] TEST STATUS: FINAL SPECIMEN SOURCE: STOOL SPECIMEN QUALITY:ADEQUATE RESULT:No Salmonella or Shigella isolated Specimen Stool Narrative Performed At FASTING:YES [facility] COLLECTION KIT GIVEN TO PATIENT. PATIENT ADVISED TO RETURN. FASTING: YES Resulting Agency Comment Performing Organization Information: Site ID: [facility] Name: [facility] Address: [address] [place] [phone] Director: Rosalinda Vazquez Performing Organization Address [facility] Phone Number [employer] [place] [address] [place] [phone] QuantiFERON-TB Gold Plus, 1 Tube (07/10/2018 10:48 AM CDT) Pathologist [facility] Quantiferon TB gold NEGATIVE NEGATIVE [facility] plus Comment: [place] Negative test result. M. tuberculosis complex infection unlikely. Quantiferon NIL 0.04 IU/mL [facility] [place] Quantiferon mitogen >10.00 IU/mL [facility] minus NIL [place] Quantiferon plus <0.00 IU/mL [facility] TB1 minus NIL [place] Quantiferon plus 0.00 IU/mL [facility] TB2 minus NIL Comment: [place] The Nil tube value reflects the background [...] T-lymphocytes. For additional information, please refer to http://education.Nutrabolt.Lifeproof/faq/204 (This link is being provided for informational/ educational purposes only.) Specimen Narrative Performed At FASTING:YES [facility] FASTING: YES Resulting Agency Comment Performing Organization Information: Site ID: [id number] Name: [facility] Address: [address] [place] [phone] Director: Rosalinda Vazquez Performing Organization Address [facility] Phone Number [employer] [place] [address] [place] [address] [phone] Proteinase-3 Antibody (07/10/2018 10:48 AM CDT) WI-3 (protease) <1.0 AI [facility] Comment: DIAGNOSTICS-SCOOTER ValueInterpretation G II <1.0 No Antibody Detected > or=1.0 Antibody Detected Autoantibodies to proteinase-3 (WI-3) are accepted as characteristic for granulomatosis with polyangiitis (GPA, Love's), and are detectable in 95% of the histologically proven cases. The cytoplasmic IFA pattern, (c-ANCA), is based largely on autoantibody to WI-3 which serves as the primary antigen. These autoantibodies are present in active disease. Specimen Blood Narrative Performed At FASTING:YES [facility] FASTING: YES Resulting Agency Comment Performing Organization Information: Site ID: [id number] Name: [facility] Address: [address] [place] [phone] Director: Dr. Cade Chavez Performing Organization Address [facility] Phone Number [employer] [address] Myeloperoxidase Antibody (MPO) (07/10/2018 10:48 AM CDT) Myeloperoxidase Ab <1.0 AI [employer] Comment: DIAGNOSTICS-TAMRA ValueInterpretation ING II <1.0 No Antibody Detected > or=1.0 Antibody [...] Performing Organization Information: Site ID: IG Name: [facility] Address: [address] [place] [phone] Director: Dr. Cade Chavez Performing Organization Address [facility] Phone Number [employer] [address] ANCA SCREEN WITH REFLEX TO ANCA TITER (07/10/2018 10:48 AM CDT) ANCA screen NEGATIVE NEGATIVE [facility] Comment: [employer] ANCA Screen includes evaluation for p-ANCA, c-ANCA [...] Performing Organization Information: Site ID: EZ Name: [facility] [facility], Address: [address] [place] [phone] Director: Kaye Mendieta MD,PhD,JENIFER Performing Organization Address City/State/Zipcode Phone Number [facility]/[employer] [address] [place] [address] [facility] KUSHAL SCREEN W IFA W REFLEX TO TITER (07/10/2018 10:48 AM CDT) KUSHAL screen POSITIVE (A) NEGATIVE [facility] Comment: DIAGNOSTICS-DUNIA K[place]AL IFA is a first line screen for detecting the II presence of up to approximately 150 autoantibodies in various autoimmune diseases. A positive KUSHAL IFA result is suggestive of autoimmune disease and reflexes to titer and pattern. Further laboratory testing may be considered if clinically indicated. Visit Physician FAQs for interpretation of all antibodies in the [place], prevalence, and association with diseases at http://education.CCBR-SYNARC.Lifeproof/ faq/FLQ772 KUSHAL pattern DUAL (A) [facility] Comment: DI[facility]NOSTICS-DUNIA Nucleolar pattern is associated with systemic II sclerosis (scleroderma), systemic sclerosis/ polymyositis overlap and Sjogren's syndrome. Centromere pattern is associated with limited cutaneous systemic sclerosis, CREST (Calcinosis, Raynaud's, Esophageal dysmotility, Sclerodactyly, Telangiectasia)and primary biliary cirrhosis (PBC). KUSHAL titer SEE BELOW (A) titer [facility] Comment: [facility]-DUNIA Pattern:NUCLEOLAR II Titer:1:160 Pattern:CENTROMERE Titer:1:640 Reference Range <1:40Negative 1:40-1:80Low Antibody Level >1:80Elevated Antibody Level Specimen Blood Narrative Performed At FASTING:YES [facility] FASTING: YES Resulting Agency Comment Performing Organization Information: Site ID: IG Name: [facility] Lab Address: [address] [place] [phone] Director: Dr. Cade Chavez Performing Organization Address [facility] Phone Number [facility] [employer] [address] SSA/SSB antibody (07/10/2018 10:48 AM CDT) Sjogren's SS-A <1.0 NEG <1.0 NEG AI [facility] antibody [facility] Sjogren's SS-B <1.0 NEG <1.0 NEG AI [facility] antibody [facility] Specimen Blood Narrative Performed At FASTING:YES [facility] FASTING: YES Resulting Agency Comment Performing Organization Information: Site ID: IG Name: [facility] Lab Address: [address] [place] [phone] Director: Dr. Cade Chavez Performing Organization Address [facility] Phone Number [facility] [employer] [address] Liver-kidney microsome Ab, IgG (07/10/2018 10:48 AM CDT) Liver-kidney <20.0 U [facility] microsome Ab, Comment: DIAGNOSTICS/PAULO IgG Reference Range: OLS SJC < =20.0 NEGATIVE 20.1-24.9EQUIVOCAL > =25.0 [...] infection. Specimen Blood Narrative Performed At FASTING:YES [facility] FASTING: YES Resulting Agency Comment Performing Organization Information: Site ID: EZ Name: [facility], Address: [address] [place] [phone] Director: Kaye Mendieta MD,PhD,JENIFER Performing Organization Address [facility] Phone Number [facility] [employer] [address] [place] [address] SJC Cyclic citrullinated peptide antibody, IgG (07/10/2018 10:48 AM CDT) Cyclic citrullin <16 UNITS [facility] peptide Ab Comment: DIAGNOSTICS-DUNIA Reference Range II Negative:<20 Weak Positive: 20-39 Moderate Positive: 40-59 Strong Positive: >59 Specimen Blood Narrative Performed At FASTING:YES [facility] FASTING: YES Resulting Agency Comment Performing Organization Information: Site ID: IG Name: [facility] Address: [address] [place] [phone] Director: Dr. Cade Chavez Performing Organization Address [facility] Phone Number [employer] [address] [place] [address]. [place] [address] F-actin (smooth muscle) antibody, IgG (07/10/2018 10:48 AM CDT) F-actin (smooth 43 (H) U [facility] muscle) Ab, IgG Comment: DIAGNOSTICS/Strands Reference Range: LS SJC < 20 NEGATIVE > OR=20 POSITIVE Antibodies [...] Performing Organization Information: Site ID: EZ Name: [facility], Address: [address] [place] [phone] Director: Kaye Mendieta MD,PhD,JENIFER Performing Organization Address [facility] Phone Number [facility]/[employer] [address] [place] [address] [facility] Anti mitochondria titer (07/10/2018 10:48 AM CDT) Mitochondrial Ab <20.0 U [facility] Comment: DIAGNOSTICS/SAUER Reference Range: SJC NEGATIVE:< OR=20.0 EQUIVOCAL: 20.1-24.9 POSITIVE:> OR=25.0 Specimen Blood Narrative Performed At FASTING:YES [facility] FASTING: YES Resulting Agency Comment Performing Organization Information: Site ID: EZ Name: [facility] [facility], Address: [address] [place] [phone] Director: Kaye Mendieta MD,PhD,JENIFER Performing Organization Address [facility] Phone Number [facility]/[employer] [address] [place] [address] [facility] Rheumatoid factor (07/10/2018 10:48 AM CDT) Rheumatoid factor <14 <14 IU/mL [facility] [place] Specimen Blood Narrative Performed At FASTING:YES [facility] FASTING: YES Resulting Agency Comment Performing Organization Information: Site ID: RGA Name: [facility] Address: [address] [place] [phone] Director: Rosalinda Vazquez Performing Organization Address [facility] Phone Number [employer] [place] [phone] C3 complement component (07/10/2018 10:48 AM CDT) C3 complement 89 83 - 193 mg/dL [employer] [place] Specimen Blood Narrative Performed At FASTING:YES [facility] FASTING: YES Resulting Agency Comment Performing Organization Information: Site ID: RGA Name: [facility] Address: [address] [place] [phone] Director: Rosalinda Vazquez Performing Organization Address [facility] Phone Number [employer] [address] [address] C4 complement component (07/10/2018 10:48 AM CDT) C4 complement 10 (L) 15 - 57 mg/dL [employer] [place] Specimen Blood Narrative Performed At FASTING:YES [facility] FASTING: YES Resulting Agency Comment Performing Organization Information: Site ID: RGA Name: [facility] Address: [address] [place] [address] Director: Rosalinda Vazquez Performing Organization Address City/State/Zipcode Phone Number [employer] [place] [address] [place] [address] after 12/29/2017 Advance Directives For more information, please contact: [phone] Type Date Recorded Patient Resident Assistant Explanation Advance Directives, Living Will 10/11/2018 11:10 AM and Medical Power of Dining Services Manager
--- OUTSIDE RECORDS SUMMARY | 2018-12-30 10:06 | XMS REPORT | Clinical Summary ---
:1950 Author Organization [facility] ClubContactually Address [address] [place] [address] Care Team Providers Name Role Phone Kristian Torrescorinna Primary Care Provider Cristopher Bettencourt MD Consulting [...] Encounters Date Type Specialty Care Team Description 12/29/2018 Telephone Hepatology Elida Lujan RN [facility] 06/08/2018 Office Visit Hepatology Bashir Xiao MD Autoimmune hepatitis treated with steroids (Primary Dx); Marcela Yo, Crohn's disease without complication, unspecified gastrointestinal tract location (HCC); [employer] Rheumatoid arthritis involving shoulder with negative rheumatoid [...] Hepatology Leticia Liriano MA 12/29/2017 Telephone Hepatology lEana Haines Appointment after 12/29/2017 Family History Medical History Relation Name Comments [...] Taken Blood Pressure 145/82 06/08/2018 11:02 AM PORTFOLIO MANAGER Pulse 79 06/08/2018 11:02 AM PORTFOLIO MANAGER Temperature 36.8 C (98.3 F) 06/08/2018 11:02 AM PORTFOLIO MANAGER Respiratory Rate 18 06/08/2018 11:02 AM PORTFOLIO MANAGER Oxygen Saturation 96% 06/08/2018 11:02 AM PORTFOLIO MANAGER Inhaled Oxygen Concentration - - Weight 88.6 kg (195 lb 6.4 oz) 06/08/2018 11:02 AM PORTFOLIO MANAGER Height 165.6 cm (5' 5.2") 06/08/2018 11:02 AM PORTFOLIO MANAGER Body Mass Index 32.32 06/08/2018 11:02 AM PORTFOLIO MANAGER Plan of Treatment Date Type Specialty Care Team Description 01/10/2019 Office Visit Hepatology Bashir Xiao MD [address] [address] [facility] Procedures Procedure Name Priority Date/Time Associated Comments [...] in the results section. after 12/29/2017 Results Hepatitis A Antibody, IgG (HS Only) (01/26/2018 1:01 PM CDT) Hep A IgG Reactive (A) Nonreactive [facility] Specimen Blood Performing Organization Address City/State/Zipcode Phone Number [facility] [address] [place] [address] CENTER CBC with platelet count + automated diff (01/26/2018 1:01 PM CDT) WBC 5.3 3.5 - 10.5 K/L [facility] RBC 4.61 3.93 - 5.22 M/L [facility] Hemoglobin 12.8 11.2 - 15.7 GM/DL [facility] Hematocrit 39.8 34.1 - 44.9 % [facility] MCV 86.3 79.4 - 94.8 fL [facility] MCH 27.8 25.6 - 32.2 pg [facility] MCHC 32.2 32.2 - 35.5 GM/DL [facility] RDW 14.0 11.7 - 14.4 % [facility] Platelets 316 150 - 450 K/CU MM [facility] MPV 9.7 9.4 - 12.3 fL [facility] nRBC 0 0 - 0 /100 WBC [facility] % Neutros 62 % [facility] % Lymphs 22 % [facility] % Monos 12 % [facility] % Eos 4 % [facility] % Baso 1 % [facility] # Neutros 3.27 1.56 - 6.13 K/L [facility] # Lymphs 1.14 (L) 1.18 - 3.74 K/L [facility] # Monos 0.62 (H) 0.24 - 0.36 K/L [facility] # Eos 0.19 0.04 - 0.36 K/L [facility] # Baso 0.07 0.01 - 0.08 K/L [facility] Immature Granulocytes-Relative 0 0 - 1 % [facility] Specimen Blood Performing Organization Address City/State/Zipcode Phone Number [address] [address] [phone] CENTER Hepatitis C antibody (01/26/2018 1:01 PM CDT) Hepatitis C Ab Nonreactive Nonreactive [facility] Specimen Blood Performing Organization Address City/State/Zipcode Phone Number [address] [address] [place] Hepatitis B core antibody, total (01/26/2018 1:01 PM CDT) Hep B Core Total Ab Nonreactive Nonreactive [facility] Specimen Blood Performing Organization Address City/[facility]/Zipcode Phone Number [address] [address] [phone] CENTER Hepatitis B surface antibody (01/26/2018 1:01 PM CDT) Hep B S Ab <8.0 <8.0 mIU/mL [facility] Specimen Blood Performing Organization Address City/[facility]/Zipcode Phone Number [address] [address] CENTER Hepatitis B surface antigen (01/26/2018 1:01 PM CDT) hepatitis B Surface Ag Nonreactive Nonreactive [facility] Specimen Blood Performing Organization Address City/[facility] Phone Number [address] [address] [place] Pro-time/INR (01/26/2018 1:01 PM CDT) Protime 13.4 11.7 - 14.7 seconds [facility] INR 1.0 <=5.9 [facility] Specimen Blood Narrative Performed At [facility] RECOMMENDED COUMADIN/WARFARIN INR THERAPY RANGES STANDARD DOSE: 2.0 - 3.0 Includes: PROPHYLAXIS for venous thrombosis, systemic embolization; TREATMENT for venous thrombosis and/or pulmonary embolus. HIGH RISK: Target INR is 2.5-3.5 for patients with mechanical heart valves. Performing Organization Address [facility] Hospital[facility] Phone Number [address] [address] [phone] [place] Hepatic function panel (01/26/2018 1:01 PM CDT) Protein, Total 9.0 (H) 6.0 - 8.3 gm/dL [facility] Albumin 4.2 3.5 - 5.0 g/dL [facility] Total Bilirubin 0.3 0.2 - 1.2 mg/dL [facility] Bilirubin, Direct 0.2 0.1 - 0.5 mg/dL [facility] Alkaline Phosphatase 111 40 - 150 U/L [facility] AST 44 (H) 5 - 34 U/L [facility] ALT 30 6 - 55 U/L [facility] Specimen Blood Performing Organization Address City/[facility]/Zipcode Phone Number [address] [address] [phone] [place] Basic Metabolic Panel (01/26/2018 1:01 PM CDT) Sodium 129 (L) 136 - 145 meq/L [facility] Potassium 4.0 3.5 - 5.1 meq/L [facility] Chloride 94 (L) 98 - 107 meq/L [facility] CO2 24 22 - 29 meq/L [facility] BUN 4 (L) 7 - 21 mg/dL [facility] Creatinine 0.67 0.57 - 1.25 mg/dL [facility] Glucose 98 70 - 105 mg/dL [facility] Calcium 9.7 8.4 - 10.2 mg/dL [facility] EGFR 88Comment: ESTIMATED GFR IS mL/min/1.73 sq m [facility] NOT ACCURATE CREATININE [facility] CLEARANCE IN PREDICTING GLOMERULAR FILTRATION RATE. ESTIMATED GFR IS NOT APPLICABLE FOR DIALYSIS PATIENTS. Specimen Blood Performing Organization Address City/State/Zipcode Phone Number [facility] [address] [place] [address] CENTER after 12/29/2017 Insurance Payer Benefit Plan / Subscriber ID Type Phone Address Group [employer] - MEDICARE AETNA MEDICARE HMO xxxxxxxx [phone] [address] [place] [address]
--- OUTSIDE RECORDS SUMMARY | 2018-12-30 10:07 | XMS REPORT | Continuity of Care Document ---
:1950 Author Organization [employer] Care Team Providers Name Role Phone [employer] Unavailable Unavailable Problems Problem Status Onset Classification Date Comments Source Date Reported N/A Active 01/07/20 17 [facility] M17.11 Active 01/07/20 17 [facility] RIGHT KNEE DJD Active 10/13/19 17 [facility] S83.281A RIGHT Active 05/27/19 KNEE TORN 16 [facility] MENISCUS LEFT SHOULDER Active 02/20/20 [employer] 15 [facility] Diverticulitis Active Problem 01/15/2017 [facility] Gastroparesis Active Problem 01/15/2017 [facility] 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 [facility] Motility Active Problem 01/15/2017 [facility] Rheumatoid Active Problem 01/15/2017 arthritis [facility] Anxiety Resolved Problem 01/15/2017 [facility] HTN (Confirmed) Resolved Problem 01/15/2017 [facility] Neuropathy Resolved Problem 01/15/2017 [facility] Osteoarthritis Active Problem 01/15/2017 [facility] UNILATERAL Active PRIMARY [facility] OSTEOARTHRITIS, RIGHT Medications Medication Details Route Status Patient Ordering Order Source Instructions Provider Date Acetaminophen 325 1 tab, PO, Active MG / Hydrocodone Q4H, PRN for 2016 [facility] Bitartrate 10 MG pain, X 14 Oral Tablet [Alleman day, # 84 tab, ] 0 Refill(s), called to pharmacy Cephalexin 500 MG 500 mg=1 cap, Active Oral Capsule PO, BID, X 10 2016 [facility] [Keflex] day, # 20 cap, 0 Refill(s), called to pharmacy 0.3 ML Enoxaparin 30 mg, SUB-Q, Active sodium 100 MG/ML Q12H, X 7 day, 2017 [facility] Prefilled Syringe # 14 syr, 0 [Lovenox] Refill(s), called to pharmacy escitalopram 20 mg 40 mg=2 tab, Active oral tablet PO, Bedtime, 0 2016 [facility] Refill(s) cetirizine 5 mg 5 mg=1 tab, Active oral tablet PO, Daily, 0 2016 [facility] Refill(s) Dilaudid 0.2 mg, Route: Inactive IVP, Q15Min, 2016 [facility] Dosing Weight 84.091, kg, PRN Pain Score 7-10, Start date: 01/11/17 12:48:00 CDT, Duration: 30 day, Stop date: 02/10/17 12:47:00 CDT Furosemide 40 mg, 1 tab, No Longer Route: PO, Active 2016 [facility] Drug form: TAB, Daily, Dosing Weight 84.091, kg, Start date: 01/11/17 9:00:00 CDT, Duration: 30 day, Stop date: 02/09/17 9:00:00 CDTNotes: (Same as: Lasix) May cause GI upset. Give with food or milk. Omeprazole 40 mg, Route: No Longer PO, Daily, Active 2016 [facility] Dosing Weight 84.091, kg, Start date: 01/11/17 9:00:00 CDT, Duration: 30 day, Stop date: 02/09/17 9:00:00 CDT Zyrtec 5 mg, Route: No Longer PO, Daily, Active 2016 [facility] Dosing Weight 84.091, kg, Start date: 01/11/17 9:00:00 CDT, Duration: 30 day, Stop date: 02/09/17 9:00:00 CDT Provigil 200 mg, 1 tab, No Longer Route: PO, Active 2016 [facility] Drug form: TAB, QAM, Dosing Weight 84.091, kg, Start date: 01/11/17 9:00:00 CDT, Duration: 30 day, Stop date: 02/09/17 9:00:00 CDTNotes: (Same as:Provigil) Lovenox 30 mg, 0.3 mL, No Longer Route: SUB-Q, Active 2016 [facility] Drug form: INJ, [id number], Start date: 01/11/17 8:00:00 CDT, Duration: 30 day, Stop date: 02/09/17 20:00:00 CDTNotes: (Same as: Lovenox) Potassium Chloride 20 mEq, 1 tab, No Longer Route: PO, Active 2016 [facility] Drug form: ERTAB, Breakfast, Dosing Weight 84.091, kg, Start date: 01/11/17 8:00:00 CDT, Duration: 30 day, Stop date: 02/09/17 8:00:00 CDTNotes: (Same as: K-Dur 20) "Do Not Crush" With food and full glass of water Xanax 1 mg, 1 tab, Inactive Route: PO, 2016 [facility] Drug form: TAB, ONCE, Start date: 01/10/17 21:45:00 CDT, Stop date: 01/10/17 21:45:00 CDTNotes: With food or milk (Same as: Xanax) Lexapro 40 mg, 2 tab, No Longer Route: PO, Active 2016 [facility] Drug form: TAB, Bedtime, Dosing Weight 84.091, kg, Start date: 01/10/17 21:00:00 CDT, Duration: 30 day, Stop date: 02/08/17 21:00:00 CDTNotes: (Same as: Lexapro) senna 8.6 mg oral 8.6 mg, 1 tab, No Longer tablet Route: PO, Active 2016 [facility] Drug Form: TAB, Dosing Weight 84.091, kg, Bedtime, Start date: 01/10/17 21:00:00 CDT, Duration: 30 day, Stop date: 02/08/17 21:00:00 CDTNotes: (Same as: Senokot) Losartan 25 mg, 1 tab, No Longer Route: PO, Active 2016 [facility] Drug form: TAB, Bedtime, Dosing Weight 84.091, kg, Start date: 01/10/17 21:00:00 CDT, Duration: 30 day, Stop date: 02/08/17 21:00:00 CDTNotes: (Same as: Cozaar) Zyrtec 5 mg, 1 tab, No Longer Route: PO, Active 2016 [facility] Drug form: TAB, Daily, Dosing Weight 84.091, kg, Start date: 01/10/17 21:00:00 CDT, Duration: 30 day, Stop date: 02/08/17 21:00:00 CDTNotes: (Same As: Zyrtec) famotidine 20 mg, 1 tab, No Longer Route: PO, Active 2016 [facility] Drug form: TAB, Q12H, Start date: 01/10/17 21:00:00 CDT, Duration: 30 day, Stop date: 02/09/17 9:00:00 CDTNotes: (Same as: Pepcid) Protonix 40 mg, 1 tab, No Longer Route: PO, Active 2016 [facility] Drug form: ECTAB, Daily, Start date: 01/10/17 21:00:00 CDT, Duration: 30 day, Stop date: 02/08/17 21:00:00 CDTNotes: Tablet should not be chewed or crushed. (Same as: Protonix) zolpidem 5 mg, 1 tab, No Longer Route: PO, Active 2016 [facility] Drug form: TAB, Bedtime, Dosing Weight 84.091, kg, PRN Insomnia, Start date: 01/10/17 20:43:00 CDT, Duration: 30 day, Stop date: 02/09/17 20:42:00 CDTNotes: (Same As: Ambien) Sodium Chloride 250 mL, Route: No Longer 0.9% IV IVPB, Start Active 2016 [facility] date: 01/10/17 20:02:00 CDT, Duration: 30 day, Stop date: 02/09/17 20:01:00 CDT, PRN Line Flush BD Normal Saline 10 mL, Route: No Longer Flush IVP, Drug Active 2016 [facility] Form: INJ, PRN, PRN Line Flush, Start date: 01/10/17 20:02:00 CDT, Duration: 30 day, Stop date: 02/09/17 20:01:00 CDTNotes: (Same as: BD Posiflush) Docusate Sodium 100 mg, 1 cap, No Longer 100 MG Oral Route: PO, Active 2016 [facility] Capsule [Colace] Drug form: CAP, BID, Dosing [...] 150 mg, Route: Inactive PO, BID, 2016 [facility] Dosing Weight 84.091, kg, Start date: 01/10/17 17:00:00 CDT, Duration: 30 day, Stop date: 02/09/17 9:00:00 CDT gabapentin 100 mg, Route: Inactive PO, TID, 2016 [facility] Dosing Weight 84.091, kg, Start date: 01/10/17 17:00:00 CDT, Duration: 30 day, Stop date: 02/09/17 13:00:00 CDT Reglan 10 mg, 2 tab, No Longer Route: PO, Active 2016 [facility] Drug form: TAB, QID-Before Meals, Dosing Weight 84.091, kg, Start date: 01/10/17 16:30:00 CDT, Duration: 30 day, Stop date: 02/09/17 11:30:00 CDTNotes: (Same as: Reglan) Take 30 min before meals ceFAZolin 2 gm, 100 mL, No Longer Route: IVPB, Active 2016 [facility] Drug form: INJ, Q8H, Start date: 01/10/17 16:00:00 CDT, Duration: 3 doses or times, Stop date: 01/11/17 8:00:00 CDT, ABX Indication: Surgical ProphylaxisNot es: Same as: Ancef glucagon 1 mg, Route: No Longer IM, Drug form: Active 2016 [facility] PDR/INJ, PRN, PRN Blood Glucose Results, Start date: 01/10/17 14:49:00 CDT, Duration: 30 day, Stop date: 02/09/17 14:48:00 CDT Dextrose 50% in 25 mL, Route: No Longer Water IV IVP, Start Active 2016 [facility] date: 01/10/17 14:48:00 CDT, Duration: 30 day, Stop date: 02/09/17 14:47:00 CDT, PRN Blood Glucose Results Dextrose 50% in 50 mL, Route: No Longer Water IV IVP, Start Active 2016 [facility] date: 01/10/17 14:47:00 CDT, Duration: 30 day, Stop date: 02/09/17 14:46:00 CDT, PRN Blood Glucose Results Humalog 6 unit, 0.06 No Longer mL, Route: Active 2016 [facility] SUB-Q, Drug form: SOLN, QID-Before Meals, PRN [...] 0.05 No Longer mL, Route: Active 2016 [facility] SUB-, Drug form: SOLN, QID-Before Meals, PRN Blood [...] 0.04 No Longer mL, Route: Active 2016 [facility] SUB-, Drug form: SOLN, QID-Before Meals, PRN Blood [...] tab, No Longer Route: PO, Active 2016 [facility] Drug form: TAB, Q8H, Dosing Weight 84.091, kg, PRN as needed for nausea/vomitin g, Start date: 01/10/17 14:24:00 CDT, Duration: 30 day, Stop date: 02/09/17 14:23:00 CDTNotes: (Same as: Zofran) Melatonin 5 mg, 1 tab, No Longer Route: PO, Active 2016 [facility] Drug form: TAB, Bedtime, Dosing Weight 84.091, kg, PRN Insomnia, Start date: 01/10/17 14:24:00 CDT, Duration: 30 day, Stop date: 02/09/17 14:23:00 CDTNotes: (Same as: Melatonin) Guaifenesin 400 mg, 2 tab, No Longer Route: PO, Active 2016 [facility] Drug form: TAB, BID, Dosing Weight 84.091, kg, PRN Cough/Congesti on, Start date: 01/10/17 14:23:00 CDT, Duration: 30 day, Stop date: 02/09/17 14:22:00 CDTNotes: (Same as: Organidin NR) Adderall 10 mg, Route: No Longer PO, Drug form: Active 2016 [facility] TAB, BID, Dosing Weight 84.091, kg, PRN Agitation, Start date: 01/10/17 14:22:00 CDT, Duration: 30 day, Stop date: 02/09/17 14:21:00 CDT gabapentin 100 mg, 1 cap, No Longer Route: PO, Active 2016 [facility] Drug form: CAP, Q8Hnow, Dosing Weight 84.091, kg, Start date: 01/10/17 14:00:00 CDT, Duration: 30 day, Stop date: 02/09/17 6:00:00 CDTNotes: (Same as: Neurontin) Acetaminophen 1,000 mg, 2 No Longer tab, Route: Active 2016 [facility] PO, Drug form: TAB, Q6Hnow, Dosing Weight 84.091, kg, Start date: 01/10/17 13:00:00 CDT, Duration: 30 day, Stop date: 02/09/17 7:00:00 CDTNotes: Max acetaminophen 4000 mg/day (4 gm/day). (Same as: Tylenol Extra Strength) Guaifenesin 400 mg, PO, Active BID, PRN 2016 [facility] Cough/Congesti on, 0 Refill(s) Amphetamine 10 mg=1 tab, Active aspartate 2.5 MG / PO, BID, PRN 2016 [facility] Amphetamine Agitation, # Sulfate 2.5 MG / 60 tab, 0 Dextroamphetamine Refill(s) saccharate 2.5 MG / Dextroamphetamine Sulfate 2.5 MG Oral Tablet [Adderall] melatonin 5 mg 5 mg=1 tab, Active oral tablet PO, Bedtime, 2016 [facility] PRN for insomnia, # 60 tab, 0 Refill(s) Adderall PO, BID, 0 Active Refill(s) 2017 [facility] hyoscyamine 0.125 0.125 mg=1 Active mg oral tablet tab, PO, TID, 2017 [facility] 0 Refill(s) levocetirizine 5 5 mg=1 tab, Active mg oral tablet PO, QPM, # 30 2017 [facility] tab, 1 Refill(s) Oxycodone 5 mg, 1 tab, No Longer Hydrochloride 5 MG Route: PO, Active 2016 [facility] Oral Tablet Drug form: TAB, Q4H, Dosing Weight 84.091, kg, PRN Pain Score 4-6, Start date: 01/10/17 12:03:00 CDT, Duration: 30 day, Stop date: 02/09/17 12:02:00 CDTNotes: (Same as: Roxicodone) Morphine 2 mg, 1 mL, No Longer Route: IVP, Active 2016 [facility] Drug form: INJ, Q4H, Dosing Weight 84.091, kg, PRN Pain Score 7-10, Start date: 01/10/17 12:03:00 CDT, Duration: 30 day, Stop date: 02/09/17 12:02:00 CDTNotes: (Same as:MORPhine Sulfate) Hydromorphone 0.3 mg, 0.3 No Longer mL, Route: Active 2016 [facility] IVP, Drug form: INJ, Q4H, Dosing Weight 84.091, kg, PRN Pain Score 7-10, Start date: 01/10/17 12:03:00 CDT, Duration: 30 day, Stop date: 02/09/17 12:02:00 CDT Ondansetron 4 mg, 2 mL, No Longer Route: IVP, Active 2016 [facility] Drug form: INJ, Q8H, Dosing Weight 84.091, kg, PRN Nausea & Vomiting, Start date: 01/10/17 12:03:00 CDT, Duration: 30 day, Stop date: 02/09/17 12:02:00 CDTNotes: (Same as: Patsy) MEDICATION WASTE Product Size: 4 mg Product Wasted: ___ mg Cefazolin 1 gm, Route: Inactive IVPB, Drug 2016 [facility] form: INJ, Q6H, Dosing Weight 84.091, kg, Start date: 01/10/17 12:00:00 CDT, Duration: 3 doses or times, Stop date: 01/11/17 0:00:00 CDT, ABX Indication: Surgical Prophylaxis Zofran 4 mg, Route: Inactive IVP, Drug 2016 [facility] form: INJ, ONCE, Dosing Weight 84.091, kg, Start date: 01/10/17 11:16:00 CDT, Stop date: 01/10/17 11:16:00 CDT Morphine 2 mg, Route: Inactive IVP, ONCE, 2016 [facility] Dosing Weight 84.091, kg, Start date: 01/10/17 11:09:00 CDT, Stop date: 01/10/17 11:09:00 CDT Ondansetron 0.8 4 mg, 5 mL, Inactive MG/ML Oral Route: IV, 2016 [facility] Solution [Zofran] ONCE, Dosing Weight 84.091, kg, Start date: 01/10/17 11:09:00 CDT, Stop date: 01/10/17 11:09:00 CDT Morphine 2 mg, Route: Inactive IVP, ONCE, 2016 [facility] Dosing Weight 84.091, kg, Start date: 01/10/17 10:55:00 CDT, Stop date: 01/10/17 10:55:00 CDT ropivacaine Route: NERVE No Longer BLOCK, Active 2016 [facility] Continuous Rate: 10, ml/hr, Side: Right Dosing Site: Femoral, 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 5 mL, 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 lockout: 30 minutes, 1 Hour limit: 20 mL, 200, mL, Start date: 01/10/17 10:13:00 CDT, Duration: 30, day, Drug Form: INJ, Total volume: 200, mL, k...Notes: Same as: Naropin ondansetron (ANES) Route: IV, Inactive Drug form: 2016 [facility] INJ, ONCE, Stop date: 01/10/17 10:09:00 CDT dexamethasone Route: IV, Inactive (ANES) Drug form: 2016 [facility] INJ, ONCE, Stop date: 01/10/17 8:42:00 CDT rocuronium (ANES) Route: IV, Inactive Drug form: 2016 [facility] INJ, ONCE, Stop date: 01/10/17 8:42:00 CDT fentaNYL (ANES) Route: IV, Inactive Drug form: 2016 [facility] INJ, ONCE, Stop date: 01/10/17 8:42:00 CDT propofol (ANES) Route: IV, Inactive Drug form: 2016 [facility] INJ, ONCE, Stop date: 01/10/17 8:42:00 CDT lidocaine (ANES) Route: IV, Inactive Drug form: 2016 [facility] INJ, ONCE, Stop date: 01/10/17 8:27:00 CDT succinylcholine Route: IV, Inactive (ANES) Drug form: 2016 [facility] INJ, ONCE, Stop date: 01/10/17 8:27:00 CDT ceFAZolin (ANES) Route: IV, Inactive Drug form: 2016 [facility] INJ, ONCE, Stop date: 01/10/17 8:27:00 CDT Enoxaparin 30 mg, Route: Inactive SUB-Q, Drug 2016 [facility] form: INJ, [id number], Dosing Weight 84.091, kg, Start date: 01/10/17 8:00:00 CDT, Duration: 30 day, Stop date: 02/08/17 20:00:00 CDT Isolyte S (PH 7.4) Route: IV, Inactive 1000 mL (ANES) Total Volume: 2016 [facility] 1,000, Start date: 01/10/17 7:45:00 CDT, Stop date: 01/10/17 8:45:00 CDT sodium chloride 1,000 mL, No Longer 0.45% 1000 ml INJ Rate: 75 Active 2016 [facility] 1,000 mL ml/hr, Infuse over: 13.3 hr, Route: IV, Dosing Weight 84.091 kg, Total Volume: 1,000, Start date: 01/10/17 7:19:00 CDT, Duration: 30 day, Stop date: 02/09/17 7:18:00 CDT gabapentin 300 mg, 1 cap, Inactive Route: PO, 2016 [facility] Drug form: CAP, ONCE, Dosing Weight 84.091, kg, Start date: 01/10/17 5:32:00 CDT, Stop date: 01/10/17 5:32:00 CDTNotes: (Same as: Neurontin) Kytril 0.1 mg, 0.1 Inactive mL, Route: 2015 [facility] IVP, Drug form: INJ, ONCE, Dosing Weight 86.364, kg, Start date: 05/30/15 10:48:00, Stop date: 05/30/15 10:48:00Notes: Same as: Kytril Non Formulary MEDICATION WASTE Product Size: 1 mg Product Wasted: ___ mg Promethazine 12.5 mg, Inactive Route: IM, 2015 [facility] ONCE, Dosing Weight 86.364, kg, Start date: 05/30/15 10:48:00, Stop date: 05/30/15 10:48:00 Fentanyl 25 microgram, Inactive 0.5 mL, Route: 2015 [facility] IVP, Drug form: INJ, Q5Min, Dosing Weight 86.364, kg, PRN Pain Score 4-6, Start date: 05/30/15 6:47:00, Duration: 4 doses or times, Stop date: Limited # of timesNotes: (Same as: Sublimaze) Preservative free. Morphine 4 mg, 1 mL, Inactive Route: IVP, 2015 [facility] Drug form: INJ, Q5Min, Dosing Weight 86.364, kg, PRN Pain Score 7-10, Start date: 05/30/15 6:47:00, Duration: 3 doses or times, Stop date: Limited # of timesNotes: (Same as:MORPhine Sulfate) Flumazenil 0.2 mg, 2 mL, Inactive Route: IVP, 2015 [facility] Drug form: INJ, PRN, Dosing Weight 86.364, kg, PRN Benzodiazepine Reversal, Initial dose, Start date: 05/30/15 6:47:00, Duration: 30 day, Stop date: 06/29/15 6:46:00Notes: (Same as: Romazicon) Naloxone 0.04 mg, 0.1 Inactive mL, Route: 2015 [facility] IVP, Drug form: INJ, Q2MIN, Dosing Weight 86.364, kg, PRN Narcotic Reversal, Start date: 05/30/15 6:47:00, Duration: 8 doses or times, Stop date: Limited # of timesNotes: Same as Narcan Ondansetron 4 mg, 2 mL, Inactive Route: IVP, 2015 [facility] Drug form: INJ, ONCE, Dosing Weight 86.364, kg, PRN Nausea & Vomiting, Start date: 05/30/15 6:47:00Notes: (Same as: Zofran) MEDICATION WASTE Product Size: 4 mg Product Wasted: ___ mg Calcium Chloride 1,000 mL, Inactive 0.0014 MEQ/ML / Rate: 125 2015 [facility] Potassium Chloride ml/hr, Infuse 0.004 MEQ/ML / over: 8 hr, Sodium Chloride Route: IV, 0.103 MEQ/ML / Dosing Weight Sodium Lactate 86.364 kg, 0.028 MEQ/ML Total Volume: Injectable 1,000, Start Solution date: 05/30/15 6:47:00, Duration: 30 day, Stop date: 06/29/15 6:46:00 Acetaminophen 1,000 mg, 100 Inactive mL, Route: 2015 [facility] IVPB, Drug form: INJ, ONCE, Dosing Weight 86.364, kg, PRN Pain Score 1-3, Start date: 05/30/15 6:47:00, Duration: 1 doses or times, Stop date: Limited # of timesNotes: Infuse over 15 minutes Do not exceed 4gm/day of acetaminophen MEDICATION WASTE Product Size: 1000 mg Product Wasted: ___ mg Calcium Chloride 1,000 mL, Inactive 0.0014 MEQ/ML / Rate: 25 2015 [facility] Potassium Chloride ml/hr, Infuse 0.004 MEQ/ML / over: 40 hr, Sodium Chloride Route: IV, 0.103 MEQ/ML / Dosing Weight Sodium Lactate 86.364 kg, 0.028 MEQ/ML Total Volume: Injectable 1,000, Start Solution date: 05/30/15 6:46:00, Duration: 30 day, Stop date: 06/29/15 6:45:00 Insulin, Aspart, 10 unit, 0.1 Inactive Human mL, Route: 2014 [facility] SUB-Q, Drug form: SOLN, Sliding Scale, Dosing Weight 86.364, kg, PRN Blood Glucose Results, Start date: 02/28/15 11:44:00, Duration: 30 day, Stop date: 03/30/15 11:43:00Notes: Roll in palms of hands gently; Do not shake vigorously. (Same as: NovoLOG) "single patient use only" Stable for 28 days at room temperature. Expires in days from Date Ondansetron 4 mg, 2 mL, Inactive Route: IV2014 [facility] Drug form: INJ, ONCE, Dosing Weight 86.364, kg, PRN Nausea & Vomiting, Start date: 02/28/15 11:44:00Notes: (Same as: Patsy) MEDICATION WASTE Product Size: 4 mg Product Wasted: ___ mg Labetalol 10 mg, 2 mL, Inactive Route: IVP2014 [facility] Drug form: INJ, Q5Min, Dosing Weight 86.364, kg, PRN Elevated BP, Start date: 02/28/15 11:44:00, Duration: 5 doses or times, Stop date: Limited # of timesNotes: (Same as: Normodyne, Trandate) Push over 2 minutes Give bolus over 2-3 minutes. Calcium Chloride 1,000 mL, Inactive 0.0014 MEQ/ML / Rate: 125 2014 [facility] Potassium Chloride ml/hr, Infuse 0.004 MEQ/ML / over: 8 hr, Sodium Chloride Route: IV, 0.103 MEQ/ML / Dosing Weight Sodium Lactate 86.364 kg, 0.028 MEQ/ML Total Volume: Injectable 1,000, Start Solution date: 02/28/15 11:44:00, Duration: 30 day, Stop date: 03/30/15 11:43:00 Morphine 2 mg, 1 mL, Inactive Route: IVP2014 [facility] Drug form: INJ, Q5Min, Dosing Weight 86.364, kg, PRN Pain Score 4-6, Start date: 02/28/15 11:44:00, Duration: 5 doses or times, Stop date: Limited # of timesNotes: (Same as:MORPhine Sulfate) Meperidine 12.5 mg, 0.25 Inactive mL, Route: 2014 [facility] IVP, Drug form: INJ, Q30Min, Dosing Weight 86.364, kg, PRN Other -See Comment, For shivering, Start date: 02/28/15 11:44:00, Duration: 2 doses or times, Stop date: Limited # of timesNotes: (Same As: Demerol) Flumazenil 0.2 mg, 2 mL, Inactive Route: IVP, 2014 [facility] Drug form: INJ, PRN, Dosing Weight 86.364, kg, PRN Benzodiazepine Reversal, Initial dose, Start date: 02/28/15 11:44:00, Duration: 30 day, Stop date: 03/30/15 11:43:00Notes: (Same as: Romazicon) Naloxone 0.04 mg, 0.1 Inactive mL, Route: 2014 [facility] IVP, Drug form: INJ, Q2MIN, Dosing Weight 86.364, kg, PRN Narcotic Reversal, Start date: 02/28/15 11:44:00, Duration: 8 doses or times, Stop date: Limited # of timesNotes: (Same as: Narcan) Imuran 100 mg, PO, Active Daily 2014 [facility] Provigil 200 mg, PO, Active QAM 2014 [facility] Zantac 300 mg, PO, Active Daily 2014 [facility] Omeprazole 40 mg, PO, Active Daily 2014 [facility] Losartan 25 mg, PO, Active Bedtime 2014 [facility] Zyrtec 5 mg, PO, Active Daily 2014 [facility] Furosemide 40 mg, PO, Active Daily 2014 [facility] Lexapro 40 mg, PO, Active Daily 2014 [facility] Reglan 10 mg, PO, Active QID-Before 2014 [facility] Meals Tramadol 50 mg, PO, Active Q4-6H, PRN 2014 [facility] Pain potassium chloride 20 mEq, PO, Active Daily, 0 2014 [facility] Refill(s) Xanax 0.25 mg, PO, Active TID 2014 [facility] Zofran 4 mg, PO, Q8H, Active PRN as needed 2014 [facility] for nausea/vomitin g Benadryl 25 mg, PO, Active Bedtime 2014 [facility] Mucinex 600 mg, PO, Active Q12H 2014 [facility] Allergies, Adverse Reactions, Alerts Substance Category Reaction Severity Reaction Status Date Comments Source type Reported Bactrim Assertion Drug Active allergy [facility] codeine Assertion Drug Active MH sulfate allergy [facility] NKFA Assertion Drug Active allergy [facility] Immunizations No Data Provided for This Section Results Order Name Results Value Reference Date Interpretation Comments Source Range HEMATOLOGY Platelet 157 133 - 450 01/12 [facility] HEMATOLOGY Hct 26.3 36.0 - 01/12 48.0 [facility] HEMATOLOGY Hgb 9.2 12.0 - 01/12 16.0 [facility] CHEM PANEL eGFR 96 01/11 Result Comment: The [facility] eGFR is calculated using the CKD-EPI formula. In most young, healthy individuals the eGFR will be >90 mL/min/1.73m2 . The eGFR declines with age. An eGFR of 60-89 may be normal in some populations, particularly the elderly, for whom the CKD-EPI formula has not been extensively validated. Use of the eGFR is not recommended in the following populations:< br/>
Zayda viduals with unstable creatinine concentration s, including patients and those with serious co-morbid conditions.<b r/>
Patie nts with extremes in muscle mass or diet.

The data above are obtained from the National Kid[employer] Education Program (NKDEP) which additionally recommends that when the eGFR is used in patients with extremes of body mass index for purposes of drug dosing, the eGFR should be multiplied by the estimated BMI. CHEM PANEL CO2 24 24 - 32 01/11 [facility] CHEM PANEL Calcium Lvl 8.1 8.5 - 10.5 01/11 [facility] CHEM PANEL Creatinine 0.60 0.50 - 01/11 Lvl 1.40 [facility] CHEM PANEL AGAP 15.0 10.0 - 01/11 MH 20.0 /2016 [facility] CHEM PANEL BUN 6 7 - 22 01/11 /2016 [facility] CHEM PANEL Glucose Lvl 131 70 - 99 01/11 /2016 [facility] CHEM PANEL Potassium 4.0 3.5 - 5.1 01/11 MH Lvl /2016 [facility] CHEM PANEL Sodium Lvl 134 135 - 145 01/11 /2016 [facility] CHEM PANEL Chloride Lvl 99 95 - 109 01/11 /2016 [facility] HEMATOLOGY INR 1.07 0.85 - 01/11 MH 1.17 /2016 [facility] HEMATOLOGY PT 14.1 12.0 - 01/11 MH 14.7 /2016 [facility] HEMATOLOGY WBC 8.9 3.7 - 10.4 01/11 /2016 [facility] HEMATOLOGY RBC 2.92 4.20 - 01/11 MH 5.40 /2016 [facility] HEMATOLOGY Hgb 8.9 12.0 - 01/11 Result MH 16.0 Comment: [facility] Notiffied [facility] HEMATOLOGY MCV 88.3 80.0 - 01/11 98.0 /2016 [facility] HEMATOLOGY Hct 25.8 36.0 - 01/11 48.0 /2016 [facility] HEMATOLOGY RDW 15.4 11.5 - 01/11 MH 14.5 /2016 [facility] HEMATOLOGY MCHC 34.6 32.0 - 01/11 36.0 /2016 [facility] HEMATOLOGY Platelet 161 133 - 450 01/11 /2016 [facility] HEMATOLOGY MCH 30.6 27.0 - 01/11 MH 31.0 /2016 [facility] HEMATOLOGY MPV 8.5 7.4 - 10.4 01/11 /2016 [facility] HEMATOLOGY Segs-Bands # 5.4 1.5 - 8.1 01/11 /2016 [facility] HEMATOLOGY Lymphocytes 1.8 1.0 - 5.5 01/11 MH # /2016 [facility] HEMATOLOGY Monocytes # 1.6 0.0 - 0.8 01/11 /2016 [facility] HEMATOLOGY Eosinophils 0.1 0.0 - 0.5 01/11 MH # /2016 [facility] HEMATOLOGY Eosinophils 0.6 0.0 - 4.0 01/11 /2016 [facility] HEMATOLOGY Basophils 0.4 0.0 - 1.0 01/11 /2016 [facility] HEMATOLOGY Plt Morph Normal 01/11 (01/11/17 4:50 AM) /2016 [facility] HEMATOLOGY RBC Morph Normal 01/11 (01/11/17 4:50 AM) /2016 [facility] HEMATOLOGY Segs 61.3 45.0 - 01/11 MH 75.0 /2017 [facility] HEMATOLOGY Monocytes 17.5 2.0 - 12.0 01/11 /2016 [facility] HEMATOLOGY Lymphocytes 20.2 20.0 - 01/11 MH 40.0 [facility] ELECTROLYTE AGAP 7.8 10.0 - 01/10 MH S 20.0 [facility] ELECTROLYTE eGFR 91 01/10 Result MH S Comment: The [facility] eGFR is calculated using the CKD-EPI formula. In most young, healthy individuals the eGFR will be >90 mL/min/1.73m2 . The eGFR declines with age. An eGFR of 60-89 may be normal in some populations, particularly the elderly, for whom the CKD-EPI formula has not been extensively validated. Use of the eGFR is not recommended in the following populations:< br/>
Zayda viduals with unstable creatinine concentration s, including patients and those with serious co-morbid conditions.<b r/>
Patie nts with extremes in muscle mass or diet.

The data above are obtained from the National Kidney Disease Education Program (NKDEP) which additionally recommends that when the eGFR is used in patients with extremes of body mass index for purposes of drug dosing, the eGFR should be multiplied by the estimated BMI. ELECTROLYTE Calcium Lvl 8.9 8.5 - 10.5 01/10 S [facility] ELECTROLYTE CO2 31 24 - 32 01/10 S [facility] ELECTROLYTE Chloride Lvl 97 95 - 109 01/10 MH S [facility] ELECTROLYTE Potassium 3.8 3.5 - 5.1 01/10 MH S Lvl /2016 [facility] ELECTROLYTE Sodium Lvl 132 135 - 145 01/10 S [facility] ELECTROLYTE Glucose Lvl 95 70 - 99 01/10 S [facility] ELECTROLYTE Creatinine 0.70 0.50 - 01/10 MH S Lvl 1.40 /2016 [facility] ELECTROLYTE BUN 6 7 - 22 01/10 S [facility] HEMATOLOGY RDW 15.4 11.5 - 01/10 MH 14.5 [facility] HEMATOLOGY Platelet 197 133 - 450 01/10 MH [facility] HEMATOLOGY WBC 4.7 3.7 - 10.4 01/10 [facility] HEMATOLOGY MCH 30.4 27.0 - 01/10 MH 31.0 [facility] HEMATOLOGY MCV 87.3 80.0 - 01/10 MH 98.0 /2017 [facility] HEMATOLOGY Hct 36.9 36.0 - 01/10 MH 48.0 /2017 [facility] HEMATOLOGY RBC 4.23 4.20 - 01/10 5.40 /2016 [facility] HEMATOLOGY Hgb 12.9 12.0 - 01/10 16.0 /2016 [facility] HEMATOLOGY MCHC 34.8 32.0 - 01/10 MH 36.0 /2017 [facility] HEMATOLOGY MPV 7.9 7.4 - 10.4 01/10 /2016 [facility] HEMATOLOGY Eosinophils 6.4 0.0 - 4.0 01/10 /2016 [facility] HEMATOLOGY Monocytes 20.6 2.0 - 12.0 01/10 /2016 [facility] HEMATOLOGY Lymphocytes 38.0 20.0 - 01/10 MH 40.0 /2016 [facility] HEMATOLOGY Segs-Bands # 1.6 1.5 - 8.1 01/10 /2016 [facility] HEMATOLOGY Basophils 1.4 0.0 - 1.0 01/10 /2016 [facility] HEMATOLOGY Eosinophils 0.3 0.0 - 0.5 01/10 MH # /2016 [facility] HEMATOLOGY Lymphocytes 1.8 1.0 - 5.5 01/10 MH # /2016 [facility] HEMATOLOGY Monocytes # 1.0 0.0 - 0.8 01/10 /2016 [facility] HEMATOLOGY Basophils # 0.1 0.0 - 0.2 01/10 /2016 [facility] HEMATOLOGY Plt Morph Normal 01/10 (01/10/17 5:38 AM) /2016 [facility] HEMATOLOGY RBC Morph Normal 01/10 (01/10/17 5:38 AM) /2016 [facility] HEMATOLOGY Segs 33.6 45.0 - 01/10 75.0 /2016 [facility] URINE AND UA Sq Epi None Seen Few 01/10 STOOL (01/10/17 5:38 AM) /2016 [facility] URINE AND UA Leuk Est Small Negative 01/10 STOOL *ABN* /2016 [facility] (01/10/17 5:38 AM) URINE AND UA WBC 1 0 - 5 01/10 STOOL /2016 [facility] URINE AND UA Nitrite Negative Negative 01/10 STOOL (01/10/17 5:38 AM) /2016 [facility] URINE AND UA Bili Negative Negative 01/10 STOOL *NA* /2016 [facility] (01/10/17 5:38 AM) URINE AND UA Blood Negative Negative 01/10 STOOL (01/10/17 5:38 AM) /2017 [facility] URINE AND UA 0.2 0.1 - 1.0 01/10 STOOL Urobilinogen /2016 [facility] URINE AND UA Color Yellow Yellow 01/10 STOOL *NA* /2016 [facility] (01/10/17 5:38 AM) URINE AND UA pH 7.0 5.0 - 8.0 01/10 STOOL /2016 [facility] URINE AND UA Protein Negative Negative 01/10 STOOL (01/10/17 5:38 AM) /2016 [facility] URINE AND UA Ketones Negative Negative 01/10 STOOL *NA* /2016 [facility] (01/10/17 5:38 AM) URINE AND UA Glucose Negative Negative 01/10 STOOL (01/10/17 5:38 AM) /2016 [facility] URINE AND UA Turbidity Clear Clear 01/10 STOOL (01/10/17 5:38 AM) [facility] URINE AND UA Spec Grav <=1.005 <=1.030 01/10 STOOL *NA* /2016 [facility] (01/10/17 5:38 AM) CHEM PANEL POC BUN 7 7 - 22 05/30 [facility] CHEM PANEL POC 43.0 36.0 - 02 Hematocrit 48.0 /2015 [facility] CHEM PANEL POC Glucose 124 70 - 99 05/30 [facility] CHEM PANEL POC Sodium 132 135 - 145 05/30 [facility] CHEM PANEL POC Chloride 93 95 - 109 05/30 [facility] CHEM PANEL POC 4.1 3.5 - 5.1 05/30 Potassium [facility] CHEM PANEL POC 14.6 12.0 - 05/30 Hemoglobin 16.0 /2015 [facility] CHEM PANEL POC BUN 9 7 - 22 02/28 [facility] CHEM PANEL POC Chloride 95 95 - 109 02/28 [facility] CHEM PANEL POC 4.9 3.5 - 5.1 02/28 Potassium /2014 [facility] CHEM PANEL POC Sodium 133 135 - 145 02/28 [facility] CHEM PANEL POC 44.0 36.0 - 11 Hematocrit 48.0 /2014 [facility] CHEM PANEL POC 15.0 12.0 - 02/28 Hemoglobin 16.0 /2014 [facility] CHEM PANEL POC Glucose 106 70 - 99 02/28 [facility] HEMATOLOGY POC INR 1.0 0.9 - 1.2 02/28 [facility] HEMATOLOGY POC PT 11.9 12.0 - 02/28 MH 14.7 [facility] Pathology Reports No Data Provided for This Section Diagnostic Reports Report Value Date Source Knee 1-2 Views Patient Name: ROSIO LAFLEUR 01/10/2017 [facility] unilateral DX : 1950; Age: 66 years y/o Female MR: [id number] Study: Knee 1-2 Views unilateral DX 01/10/2017 7:19 AM CDT Ordering Physician: MD Justin Taylor MD Clinical Indication: total knee - total knee; Comparison: None Right knee 2 views Status post arthroplasty. Hardware in satisfactory position. Expected postsurgical gastric the soft tissues and joint. SL: [id number] Chest 1view DX EXAM: Chest x-ray one view (frontal) 01/10/2017 [facility] HISTORY:Coughing COMPARISON:None available. FINDINGS: Mediastinum: The cardiomediastinal contours are unremarkable. Lungs and pleura: No focal consolidation, pleural effusion or pneumothorax. The pulmonary vascularity is normal. No acute osseous displaced abnormality is noted. Cholecystectomy clips are noted. IMPRESSION: No radiographic evidence of an acute cardiopulmonary process. SL: COOPER Consultation Notes No Data Provided for This Section Discharge Summaries No Data Provided for This Section History and Physicals No Data Provided for This Section Vital Signs Vital Sign Value Date Comments Source Heart Rate 86 01/12/2017 [facility] Temperature Oral (F) 98.2 F 01/12/2017 [facility] Respitory Rate 18 01/12/2017 [facility] Systolic (mm Hg) 154 01/12/2017 [facility] Diastolic (mm Hg) 81 01/12/2017 [facility] Respitory Rate 18 01/12/2017 [facility] Systolic (mm Hg) 137 01/12/2017 [facility] Diastolic (mm Hg) 83 01/12/2017 [facility] Temperature Oral (F) 98.6 F 01/12/2017 [facility] Heart Rate 85 01/12/2017 [facility] Heart Rate 94 01/12/2017 [facility] Temperature Oral (F) 99.2 F 01/12/2017 [facility] Systolic (mm Hg) 155 01/12/2017 [facility] Diastolic (mm Hg) 79 01/12/2017 [facility] Respitory Rate 18 01/12/2017 [facility] Weight 84.091 01/10/2017 [facility] BMI Calculated 29.92 01/10/2017 [facility] Height 167.64 cm 01/10/2017 [facility] Height 152.4 cm 01/06/2017 [facility] Weight 84.091 01/06/2017 [facility] BMI Calculated 36.21 01/06/2017 [facility] Systolic (mm Hg) 121 05/30/2015 [facility] Diastolic (mm Hg) 67 05/30/2015 [facility] Respitory Rate 15 05/30/2015 [facility] Systolic (mm Hg) 118 05/30/2015 [facility] Diastolic (mm Hg) 66 05/30/2015 [facility] Respitory Rate 13 05/30/2015 [facility] Respitory Rate 15 05/30/2015 [facility] Systolic (mm Hg) 121 05/30/2015 [facility] Diastolic (mm Hg) 56 05/30/2015 [facility] Height 167.64 cm 05/27/2015 [facility] BMI Calculated 30.73 05/27/2015 [facility] Weight 86.364 05/27/2015 [facility] Systolic (mm Hg) 143 02/28/2015 [facility] Diastolic (mm Hg) 79 02/28/2015 [facility] Systolic (mm Hg) 145 02/28/2015 [facility] Diastolic (mm Hg) 84 02/28/2015 [facility] Respitory Rate 15 02/28/2015 [facility] Systolic (mm Hg) 140 02/28/2015 [facility] Diastolic (mm Hg) 78 02/28/2015 [facility] Respitory Rate 17 02/28/2015 [facility] Respitory Rate 19 02/28/2015 [facility] Heart Rate 57 02/28/2015 [facility] BMI Calculated 30.73 02/26/2015 [facility] Weight 86.364 02/26/2015 [facility] Height 167.64 cm 02/26/2015 [facility] Encounters Location Location Encounter Encounter Reason Attending ADM DC Status Source Details Type Number For Provider Date Date Visit [facility] OBS Day [id number] Justin 02/28 02/28 [facility] [place] /2014 [facility] OBS Day [id number] [place] 05/30 05/30 [facility] [place] /2015 [facility] Inpatient [id number] Justin 01/10 01/12 [facility] /2016 [facility] Procedures Procedure Code Date Perfomer Comments Source TKR -Total [id number] [facility] prosthetic 7 replacement of knee joint using cement Cholecystectomy [id number] [facility] Hysterectomy [id number] [facility] Procedure<sup>1</sup [id number] arthroscopy of [facility] [place] > knee x2 Procedure<sup>2</sup [id number] open knee [facility] surgery Rotator cuff [id number] right [facility] repair<sup>3</sup> Assessment and Plan Assessment and Plan Date Source Extracted from:Title: Anesthesia APMS Progress Note* 01/12/2017 [facility] Author: Terry Starkey RN Date: 01/12/17 Patient: ROSIO LAFLEUR Age: 66 years Sex: Female : 1950 Associated Diagnoses: None Author: Terry Starkey RN Postoperative Information Surgery Done Procedure Location: RIGHT, Knee. Date of Service: 01/10/2017 Chief Complaint Continuing surgical site pain management Inpatient information Interaction with patient. Progress Note Date and Time of Visit: 01/12/2017 07:55 Post OP Day #: 2. Peripheral Nerve Block Nerve Block #: 1. Nerve Block Site: Adductor canal with SS obturator: Right. Infusion Medication: Ropivacaine: 0.2%. 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 Current Status Assessment Visual Analog Scale for Pain (VAS 0-10): At Rest: 3, With Activity: 4. Pump Use: Appropriate. Level of Sedation: Awake/Alert. Activity: Out of Bed. Motor Block Residual Motor Weakness: No. Numbness Residual Sensory Numbness: No. Adjuvant Medication: PO, IV. 1st PO Analgesic see JUN. Site Assessment Non-tender, no redness, minimal swelling or bruising, No exudates, drainage, or bleeding. mild brusing to nerve block site.. Side Effects None. Catheter(s) Removed All peripheral nerve catheters removed. Date/Time: 01/12/2017 06:00. Tip was intact. per 9th floor nursing personal. Plan [facility] Plan Discharge from [facility] care: Analgesics per Primary Service. Terry Turner,am scribing for,and in the presence of . Addendum by Ramón Phillip MD on 01/12/2017 15:04 Ramón Turner MD, personally performed the services described in this documentation and it is both accurate and complete as ascribed in my presence by Terry Tapner Extracted from:Title: Anesthesia APMS Progress Note* 02/28/2015 [facility] Author: Terry Lozada MD Date: 03/02/15 Plan [facility] Plan Discharge from [facility] care: Analgesics per Primary Service. cath dc by patient, satisfied with care. site ok. Full recovery of function. Plan of Care No Data Provided for This Section Social History Social History Date Source Social History TypeResponse 01/10/2017 [facility] Substance Abuse Use: None. IV drug use: No. Sexual Sexually active: No.1 Exercise 2 Employment/School Status: Retired. Alcohol Current, Type Wine. Frequency: 1-2 times per year. Alcohol use interferes with work or home: No. Smoking Status Never smoker; Ready to change: No; Exposure to Tobacco Smoke None; Cigarette Smoking Last 365 Days No; Reg Smoking Cessation Counseling No 1no [id number] Family History No Data Provided for This Section Advance Directives No Data Provided for This Section Functional Status No Data Provided for This Section
--- OUTSIDE RECORDS SUMMARY | 2018-12-30 10:08 | XMS REPORT ---
:1950 [facility] Address [address] [place], [place] [address]amena Clayton [address] [place] [id number] Care Team Providers Name Role Phone ELDER [...] Comments HEPATITIS B SURFACE ANTIBODY (BEAKER) (test rbvt=743) < mIU/mL <8.0 HEPATITIS A ANTIBODY, [id number] 14:42:00 Test Item Value Reference Range Comments HEPATITIS A IGG ANTIBODY (BEAKER) (test woli=5720) Reactive Nonreactive HEPATITIS B SURFACE [id number] 14:23:00 Test Item Value Reference Range Comments HEPATITIS B SURFACE ANTIGEN (2) (BEAKER) (test Nonreactive Nonreactive hzbn=4020) HEPATITIS C [id number] 14:23:00 Test Item Value Reference Range Comments HEPATITIS C ANTIBODY (BEAKER) (test xkju=438) Nonreactive Nonreactive HEPATITIS B CORE ANTIBODY, [id number] 14:23:00 Test Item Value Reference Range Comments HEPATITIS B CORE TOTAL ANTIBODY (BEAKER) (test Nonreactive Nonreactive vdxr=844) HEPATIC FUNCTION [id number] 14:04:00 Test Item Value Reference Range Comments TOTAL PROTEIN (BEAKER) (test cvea=382) 9.0 gm/dL 6.0-8.3 ALBUMIN (BEAKER) (test fjjv=7779) 4.2 g/dL 3.5-5.0 BILIRUBIN TOTAL (BEAKER) (test olxo=027) 0.3 mg/dL 0.2-1.2 BILIRUBIN DIRECT (BEAKER) (test ujgk=381) 0.2 mg/dL 0.1-0.5 ALKALINE PHOSPHATASE (BEAKER) (test ktiq=556) 111 U/L 40-150 AST (SGOT) (BEAKER) (test nglz=612) 44 U/L 5-34 ALT (SGPT) (BEAKER) (test hexc=649) 30 U/L 6-55 BASIC METABOLIC [id number] 14:04:00 Test Item Value Reference Range Comments SODIUM (BEAKER) (test 129 meq/L 136-145 xpgk=562) POTASSIUM (BEAKER) (test 4.0 meq/L 3.5-5.1 wlac=260) CHLORIDE (BEAKER) (test 94 meq/L 98-107 qoyl=364) CO2 (BEAKER) (test 24 meq/L 22-29 ssvj=407) BLOOD UREA NITROGEN 4 mg/dL 7-21 (BEAKER) (test hwdw=959) CREATININE (BEAKER) (test 0.67 mg/dL 0.57-1.25 qpql=649) GLUCOSE RANDOM (BEAKER) 98 mg/dL 70-105 (test qhwl=222) CALCIUM (BEAKER) (test 9.7 mg/dL 8.4-10.2 jisc=020) EGFR (BEAKER) (test 88 mL/min/1.73 sq m ESTIMATED GFR IS NOT wfnv=0143) ACCURATE CREATININE CLEARANCE IN PREDICTING GLOMERULAR FILTRATION RATE. ESTIMATED GFR IS NOT APPLICABLE FOR DIALYSIS PATIENTS. PROTHROMBIN [id number] 13:45:00 Test Item Value Reference Range Comments PROTIME (BEAKER) (test zzyr=841) 13.4 seconds 11.7-14.7 INR (BEAKER) (test ekom=221) 1.0 <=5.9 RECOMMENDED COUMADIN/WARFARIN INR THERAPY RANGESSTANDARD DOSE: 2.0 - 3.0 Includes: PROPHYLAXIS forvenous thrombosis, systemic embolization; TREATMENT for venous thrombosis and/or pulmonary embolus.HIGH RISK: Target INR is 2.5-3.5 for patients with mechanical heart valves.CBC W/PLT COUNT & AUTO [id number] 13:31:00 Test Item Value Reference Range Comments WHITE BLOOD CELL COUNT (BEAKER) (test wvjv=495) 5.3 K/ L 3.5-10.5 RED BLOOD CELL COUNT (BEAKER) (test lkou=602) 4.61 M/ L 3.93-5.22 HEMOGLOBIN (BEAKER) (test rxdr=249) 12.8 GM/DL 11.2-15.7 HEMATOCRIT (BEAKER) (test tjwg=763) 39.8 % 34.1-44.9 MEAN CORPUSCULAR VOLUME (BEAKER) (test dqbg=386) 86.3 fL 79.4-94.8 MEAN CORPUSCULAR HEMOGLOBIN (BEAKER) (test 27.8 pg 25.6-32.2 tuws=506) MEAN CORPUSCULAR HEMOGLOBIN CONC (BEAKER) (test 32.2 GM/DL 32.2-35.5 gpdf=656) RED CELL DISTRIBUTION WIDTH (BEAKER) (test 14.0 % 11.7-14.4 katn=276) PLATELET COUNT (BEAKER) (test opkx=248) 316 K/CU MM 150-450 MEAN PLATELET VOLUME (BEAKER) (test xuov=233) 9.7 fL 9.4-12.3 NUCLEATED RED BLOOD CELLS (BEAKER) (test 0 /100 WBC 0-0 bwrq=692) NEUTROPHILS RELATIVE PERCENT (BEAKER) (test 62 % jvpl=638) LYMPHOCYTES RELATIVE PERCENT (BEAKER) (test 22 % bvmz=521) MONOCYTES RELATIVE PERCENT (BEAKER) (test 12 % owek=005) EOSINOPHILS RELATIVE PERCENT (BEAKER) (test 4 % pdfk=690) BASOPHILS RELATIVE PERCENT (BEAKER) (test 1 % ylry=157) NEUTROPHILS ABSOLUTE COUNT (BEAKER) (test 3.27 K/ L 1.56-6.13 oqpp=630) LYMPHOCYTES ABSOLUTE COUNT (BEAKER) (test 1.14 K/ L 1.18-3.74 hmdv=859) MONOCYTES ABSOLUTE COUNT (BEAKER) (test 0.62 K/ L 0.24-0.36 ibbr=031) EOSINOPHILS ABSOLUTE COUNT (BEAKER) (test 0.19 K/ L 0.04-0.36 baip=180) BASOPHILS ABSOLUTE COUNT (BEAKER) (test 0.07 K/ L 0.01-0.08 ltnj=028) IMMATURE GRANULOCYTES-RELATIVE PERCENT (BEAKER) 0 % 0-1 (test nfgt=8351) COMPREHENSIVE METABOLIC [id number] 12:54:00 Test Item Value Reference Range Comments TOTAL PROTEIN (BEAKER) 8.0 gm/dL 6.0-8.3 Specimen moderately (test oqcd=738) hemolyzed ALBUMIN (BEAKER) (test 3.7 g/dL 3.5-5.0 Specimen moderately lxts=0563) hemolyzed ALKALINE PHOSPHATASE 77 U/L 40-150 (BEAKER) (test xzty=629) BILIRUBIN TOTAL (BEAKER) 0.4 mg/dL 0.2-1.2 Specimen moderately (test ugiw=265) hemolyzed SODIUM (BEAKER) (test 130 meq/L 136-145 eylf=724) POTASSIUM (BEAKER) (test 4.2 meq/L 3.5-5.1 Specimen moderately ofzb=394) hemolyzed CHLORIDE (BEAKER) (test 96 meq/L 98-107 pkbn=713) CO2 (BEAKER) (test 24 meq/L 22-29 zltg=320) BLOOD UREA NITROGEN 6 mg/dL 7-21 (BEAKER) (test bgbv=437) CREATININE (BEAKER) (test 0.67 mg/dL 0.57-1.25 Specimen moderately iadm=464) hemolyzed GLUCOSE RANDOM (BEAKER) 152 mg/dL 70-105 (test vybt=419) CALCIUM (BEAKER) (test 9.0 mg/dL 8.4-10.2 cdym=666) AST (SGOT) (BEAKER) (test 44 U/L 5-34 Specimen moderately icft=860) hemolyzed ALT (SGPT) (BEAKER) (test 27 U/L 6-55 Specimen moderately zzjx=491) hemolyzed EGFR (BEAKER) (test 88 mL/min/1.73 sq m ESTIMATED GFR IS NOT nwoc=9072) ACCURATE CREATININE CLEARANCE IN PREDICTING GLOMERULAR FILTRATION RATE. ESTIMATED GFR IS NOT APPLICABLE FOR DIALYSIS PATIENTS. CBC W/PLT COUNT & AUTO [id number] 12:23:00 Test Item Value Reference Range Comments WHITE BLOOD CELL COUNT (BEAKER) (test ubkv=875) 3.4 K/ L 3.5-10.5 RED BLOOD CELL COUNT (BEAKER) (test jgkq=109) 4.14 M/ L 3.93-5.22 HEMOGLOBIN (BEAKER) (test cdke=801) 11.8 GM/DL 11.2-15.7 HEMATOCRIT (BEAKER) (test dgbk=151) 36.8 % 34.1-44.9 MEAN CORPUSCULAR VOLUME (BEAKER) (test ghwy=352) 88.9 fL 79.4-94.8 MEAN CORPUSCULAR HEMOGLOBIN (BEAKER) (test 28.5 pg 25.6-32.2 bcjj=627) MEAN CORPUSCULAR HEMOGLOBIN CONC (BEAKER) (test 32.1 GM/DL 32.2-35.5 odpp=344) RED CELL DISTRIBUTION WIDTH (BEAKER) (test 15.5 % 11.7-14.4 mrzm=166) PLATELET COUNT (BEAKER) (test dxtm=379) 303 K/CU MM 150-450 MEAN PLATELET VOLUME (BEAKER) (test dwgw=125) 10.5 fL 9.4-12.3 NUCLEATED RED BLOOD CELLS (BEAKER) (test 0 /100 WBC 0-0 affi=301) NEUTROPHILS RELATIVE PERCENT (BEAKER) (test 59 % epkb=760) LYMPHOCYTES RELATIVE PERCENT (BEAKER) (test 22 % bhgg=432) MONOCYTES RELATIVE PERCENT (BEAKER) (test 16 % edsr=533) EOSINOPHILS RELATIVE PERCENT (BEAKER) (test 2 % dhmv=787) BASOPHILS RELATIVE PERCENT (BEAKER) (test 1 % thep=013) NEUTROPHILS ABSOLUTE COUNT (BEAKER) (test 2.02 K/ L 1.56-6.13 blnd=401) LYMPHOCYTES ABSOLUTE COUNT (BEAKER) (test 0.73 K/ L 1.18-3.74 eecs=318) MONOCYTES ABSOLUTE COUNT (BEAKER) (test 0.53 K/ L 0.24-0.36 dveb=468) EOSINOPHILS ABSOLUTE COUNT (BEAKER) (test 0.07 K/ L 0.04-0.36 ltup=967) BASOPHILS ABSOLUTE COUNT (BEAKER) (test 0.04 K/ L 0.01-0.08 uabj=398) IMMATURE GRANULOCYTES-RELATIVE PERCENT (BEAKER) 0 % 0-1 (test hfkp=3506) SEDIMENTATION [id number] 15:52:00 Test Item Value Reference Range Comments SEDIMENTATION RATE, ERYTHROCYTE (BEAKER) (test 48 mm/HR 0-30 zpkk=631) COMPREHENSIVE METABOLIC [id number] 14:48:00 Test Item Value Reference Range Comments TOTAL PROTEIN (BEAKER) 8.3 gm/dL 6.0-8.3 (test wofb=096) ALBUMIN (BEAKER) (test 4.0 g/dL 3.5-5.0 tpzv=2953) ALKALINE PHOSPHATASE 71 U/L 40-150 (BEAKER) (test souy=612) BILIRUBIN TOTAL (BEAKER) 0.5 mg/dL 0.2-1.2 (test dmzp=502) SODIUM (BEAKER) (test 133 meq/L 136-145 gofs=406) POTASSIUM (BEAKER) (test 3.4 meq/L 3.5-5.1 hpbr=597) CHLORIDE (BEAKER) (test 95 meq/L 98-107 ygok=671) CO2 (BEAKER) (test 26 meq/L 22-29 llgv=304) BLOOD UREA NITROGEN 5 mg/dL 7-21 (BEAKER) (test mxmt=860) CREATININE (BEAKER) (test 0.65 mg/dL 0.57-1.25 nuly=137) GLUCOSE RANDOM (BEAKER) 130 mg/dL 70-105 (test dkgk=549) CALCIUM (BEAKER) (test 9.5 mg/dL 8.4-10.2 ygmw=176) AST (SGOT) (BEAKER) (test 31 U/L 5-34 nftn=075) ALT (SGPT) (BEAKER) (test 22 U/L 6-55 uoqh=445) EGFR (BEAKER) (test 92 mL/min/1.73 sq m ESTIMATED GFR IS NOT djia=0123) ACCURATE CREATININE CLEARANCE IN PREDICTING GLOMERULAR FILTRATION RATE. ESTIMATED GFR IS NOT APPLICABLE FOR DIALYSIS PATIENTS. CBC W/PLT COUNT & AUTO [id number] 14:36:00 Test Item Value Reference Range Comments WHITE BLOOD CELL COUNT (BEAKER) (test jhwc=163) 6.3 K/ L 4.0-10.0 RED BLOOD CELL COUNT (BEAKER) (test ditp=833) 4.13 M/ L 4.00-5.00 HEMOGLOBIN (BEAKER) (test cqgx=623) 13.4 GM/DL 12.0-15.0 HEMATOCRIT (BEAKER) (test jxex=860) 38.5 % 36.0-45.0 MEAN CORPUSCULAR VOLUME (BEAKER) (test sryx=157) 93.4 fL 82.0-99.0 MEAN CORPUSCULAR HEMOGLOBIN (BEAKER) (test 32.4 pg 27.0-33.0 owwb=063) MEAN CORPUSCULAR HEMOGLOBIN CONC (BEAKER) (test 34.7 GM/DL 32.0-36.0 lfrt=174) RED CELL DISTRIBUTION WIDTH (BEAKER) (test 12.4 % 10.3-14.2 uaft=822) PLATELET COUNT (BEAKER) (test layf=714) 279 K/CU MM 150-430 MEAN PLATELET VOLUME (BEAKER) (test yutw=215) 7.9 fL 6.5-10.5 NUCLEATED RED BLOOD CELLS (BEAKER) (test 0 /100 WBC 0-0 glyb=810) NEUTROPHILS RELATIVE PERCENT (BEAKER) (test 53 % wuji=240) LYMPHOCYTES RELATIVE PERCENT (BEAKER) (test 25 % ftyy=581) MONOCYTES RELATIVE PERCENT (BEAKER) (test 17 % adaw=230) EOSINOPHILS RELATIVE PERCENT (BEAKER) (test 4 % ydhb=125) BASOPHILS RELATIVE PERCENT (BEAKER) (test 1 % zblv=907) NEUTROPHILS ABSOLUTE COUNT (BEAKER) (test 3.36 K/ L 1.80-8.00 ajby=104) LYMPHOCYTES ABSOLUTE COUNT (BEAKER) (test 1.59 K/ L 1.48-4.50 xlvb=248) MONOCYTES ABSOLUTE COUNT (BEAKER) (test 1.07 K/ L 0.00-1.30 bpvp=403) EOSINOPHILS ABSOLUTE COUNT (BEAKER) (test 0.24 K/ L 0.00-0.50 hqaz=192) BASOPHILS ABSOLUTE COUNT (BEAKER) (test 0.04 K/ L 0.00-0.20 kkwm=794) 0.00
[2018-12-30] MEDS ORDERED: HYDROCODONE/APAP 5/325 MG TAB ONE (11:09)
[2018-12-30] MEDS ORDERED: ONDANSETRON 4 MG (ODT) TAB ONE (11:10)
[2018-12-30] MEDS ORDERED: DIPHENHYDRAMINE 25 MG TAB/CAP ONE (12:15)
--- NOTE | 2018-12-30 12:33 | RAD REPORT ---
EXAM DESCRIPTION: RAD - Hand Left 3 View - 12/30/2018 11:37 am CLINICAL HISTORY: Fall, left hand pain COMPARISON: None. FINDINGS: No fracture, dislocation or periosteal reaction noted. Degenerative changes are present at the trapezial first metacarpal articulation and the scaphoid articulation with the trapezium and tra pezoid bones IP joint degenerative changes are present relatively mild. There is degenerative change at first MCP joint. Radiocarpal joint space narrowing seen. Alignment of the scaphoid and lunate bone s is somewhat unusual but no lunate dislocation or acute finding seen on the lateral view. IMPRESSION: No fracture present. No dislocation confirmed.
--- NOTE | 2018-12-30 12:38 | RAD REPORT ---
EXAM DESCRIPTION: RAD - Knee Left 3 View - 12/30/2018 11:37 am CLINICAL HISTORY: Fall, knee pain COMPARISON: None. FINDINGS: No fracture, dislocation or periosteal reaction.Joint effusion is present. No fat fluid le kamari present. Mild medial and lateral compartment narrowing present. Moderate-sized medial compartment marginal spurs are present. Mild contusion or edema changes are evident anterior to the knee. No for eign body. IMPRESSION: Knee degenerative changes are present without an acute finding identifiable. Joint effusion. Clinical concerns for internal derangement or occult bony injury could be further assessed with MR im aging.
--- NOTE | 2018-12-30 12:40 | RAD REPORT ---
EXAM DESCRIPTION: RAD - Knee Right 3 View - 12/30/2018 11:37 am CLINICAL HISTORY: Fall, knee pain COMPARISON: April 2015 FINDINGS: Right total knee prosthesis has been placed since the comparison study. No radiographic ev idence for loosening. No fracture of the [place] bones noted.No measurable joint effusion seen. Degene rative and postsurgical changes are noted to the patella. Contusion or edema changes are evident ante rior to the knee. No foreign body is seen. IMPRESSION: No fracture or acute bone finding identifiable. No acute findings involving the right knee implant.
--- NOTE | 2018-12-30 13:03 | ER ---
Nurse's Notes [facility] Name: Linda Miramontes Age: 68 yrs Sex: Female : 1950 Arrival Date: 12/30/2018 Time: 10:05 Bed 20 Private MD: Diagnosis: Contusion of left knee;Contusion of right knee;Contusion of left thumb without damage to nail Presentation: 12/30 10:22 Presenting complaint: Patient states: "I fell yesterday crossing the street and a aa5 campus police officer called the ambulance but I refused because I was taking my granddaughter to the swimming pool". Pt states "I think my knee gave out on me or my foot got stuck to the road and that's how I fell". Pt c/o miguel ángel knee pain and left thumb pain. Transition of care: patient was not received from another setting of care. Onset of symptoms was December 2018. Risk Assessment: Do you want to hurt yourself or someone else? Patient reports no desire to harm self or others. Initial Sepsis Screen: Does the patient meet any 2 criteria? No. Patient's initial sepsis screen is negative. Does the patient have a suspected source of infection? No. Patient's initial sepsis screen is negative. Care prior to arrival: None. 10:22 Acuity: JOBY 4 aa5 10:22 Method Of Arrival: Ambulatory aa5 Historical: - Allergies: 10:24 Bactrim (Facial Swelling); aa5 10:24 Codeine; aa5 - PMHx: 10:24 Diabetes - NIDDM; Hepatitis; Hypertension; Sepsis; Lupus; Polio; aa5 - PSHx: 10:24 Cholecystectomy; rotator cuff; Knee surgery; shoulder; Hysterectomy; aa5 - Immunization history:: Last tetanus immunization: unknown. - Social history:: Smoking status: Patient/guardian denies using tobacco. - Ebola Screening: : No symptoms or risks identified at this time. Screenin:53 Abuse screen: Denies threats or abuse. Nutritional screening: No deficits noted. em Tuberculosis screening: No symptoms or risk factors identified. Fall Risk Fall in past 12 months (25 points). Total Camargo Fall Scale indicates Low Risk Score (25-44 pts). Side Rails Up X 2 Placed close to Nursing Station Family Present and informed to notify staff if they need to leave bedside. Assessment: 11:00 General: Appears in no apparent distress. comfortable, Behavior is calm, cooperative, em Denies fever. Pain: Complains of pain in dorsal aspect of distal phalanx of left thumb, dorsal aspect of proximal phalanx of left thumb, Right first toenail and left knee Pain currently is 10 out of 10 on a pain scale. Neuro: Level of Consciousness is awake, alert, obeys commands, Oriented to person, place, time, situation, Appropriate for age. Cardiovascular: Capillary refill < 3 seconds Patient's skin is warm and dry. Respiratory: Airway is patent Respiratory effort is even, unlabored, Respiratory pattern is regular, symmetrical. GI: Abd is soft and non tender X 4 quads. Reports nausea, Patient currently denies abdominal pain, diarrhea, vomiting. Derm: Skin is intact, is healthy with good turgor, Skin is pink, warm \\T\\ dry. Wound noted Right first toenail Wound is abrasion on right toe. Musculoskeletal: Range of motion: intact in left knee and MCP of right thumb. 12:00 Reassessment: Patient appears in no apparent distress at this time. Patient and/or em family updated on plan of care and expected duration. Pain level reassessed. Patient is alert, oriented x 3, equal unlabored respirations, skin warm/dry/pink. 12:52 Reassessment: Patient appears in no apparent distress at this time. Patient and/or em family updated on plan of care and expected duration. Pain level reassessed. Patient is alert, oriented x 3, equal unlabored respirations, skin warm/dry/pink. Patient states feeling better. Patient states symptoms have improved. Vital Signs: 10:25 BP 148 / 75; Pulse 74; Resp 16 S; Temp 98.4(TE); Pulse Ox 97% on R/A; Weight 83.91 kg aa5 (R); Height 5 ft. 6 in. (167.64 cm) (R); Pain 10/10; 12:00 BP 138 / 78; Pulse 69; Resp 18; Pulse Ox 99% on R/A; em 10:25 Body Mass Index 29.86 (83.91 kg, 167.64 cm) aa5 ED Course: 10:05 Patient arrived in ED. as 10:22 Arm band placed on. aa5 10:24 Triage completed. aa5 10:24 [facility] rh1 10:24 Roger Esquivel MD is Attending Physician. rh1 10:43 Eyad Fuentes LVN is Primary Nurse. em 10:53 Patient has correct armband on for positive identification. Placed in gown. Bed in low em position. Call light in reach. Adult w/ patient. 11:39 Hand Left 3 View XRAY In Process Unspecified. EDMS 11:39 Knee Right 3 View XRAY In Process Unspecified. EDMS 11:39 Knee Left 3 View XRAY In Process Unspecified. EDMS 13:10 No provider procedures requiring assistance completed. Patient did not have IV access em during this emergency room visit. Administered Medications: 11:13 Drug: Zofran 4 mg Route: PO; em 13:01 Follow up: Response: No adverse reaction; Nausea is decreased em 11:13 Drug: HYDROcodone-acetaminophen 5 mg-325 mg 1 tabs Route: PO; em 13:01 Follow up: Response: No adverse reaction; Pain is decreased em 12:20 Drug: Benadryl 50 mg Route: PO; em 13:01 Follow up: Response: No adverse reaction; Marked relief of symptoms em Outcome: 13:02 Discharge ordered by MD. rh1 13:10 Discharged to home ambulatory, with family. em 13:10 Condition: good 13:10 Discharge instructions given to patient, family, Instructed on discharge instructions, follow up and referral plans. Demonstrated understanding of instructions, follow-up care. 13:11 Patient left the ED. em Signatures: Dispatcher [employer] [facility] Eyad Fuentes LVN LVN em Safia Brandon Audri, RN RN aa5 Candice Casper, EMA [employer] rh1 Corrections: (The following items were deleted from the chart) 10:25 10:25 BP 148 / 75; Pulse 74bpm; Resp 16bpm; Spontaneous; Pulse Ox 97% RA; Temp 98.4F aa5 Temporal; 83.91 kg Reported; Height 5 ft. 6 in. Reported; BMI: 29.8; aa5
--- NOTE | 2018-12-30 13:04 | EDPHYS ---
Physician Documentation [facility] Name: Linda Miramontes Age: 68 yrs Sex: Female : 1950 Arrival Date: 12/30/2018 Time: 10:05 Bed 20 Private MD: ED Physician Roger Esquivel HPI: 12/30 11:07 This 68 yrs old Female presents to ER via Ambulatory with complaints of Knee rh1 Pain, Thumb Injury. 11:07 Details of fall: The patient fell from an upright position, while walking, and struck a rh1 concrete surface. Onset: The symptoms/episode began/occurred yesterday. Associated injuries: The patient sustained injury to the head, tenderness, dorsal aspect of distal phalanx of left thumb, dorsal aspect of proximal phalanx of left thumb, palmar aspect of distal phalanx of left thumb and palmar aspect of proximal phalanx of left thumb, contusion, decreased range of motion, painful injury, swelling, right knee, contusion, painful injury, left knee, contusion, painful injury. Severity of symptoms: At their worst the symptoms were moderate, in the emergency department the symptoms are unchanged. The patient has not experienced similar symptoms in the past. The patient has not recently seen a physician. She was walking outside, reports left leg gave out and she fell to the ground, hitting bilateral knees, left hand and face on the ground. Denies any LOC. Pain and swelling at left thumb, pain with ROM at bilateral knees. Some tenderness at nasal dorsum, denies any changes in shape, no nasal obstruction.. Historical: - Allergies: 10:24 Bactrim (Facial Swelling); aa5 10:24 Codeine; aa5 - PMHx: 10:24 Diabetes - NIDDM; Hepatitis; Hypertension; Sepsis; Lupus; Polio; aa5 - PSHx: 10:24 Cholecystectomy; rotator cuff; Knee surgery; shoulder; Hysterectomy; aa5 - Immunization history:: Last tetanus immunization: unknown. - Social history:: Smoking status: Patient/guardian denies using tobacco. - Ebola Screening: : No symptoms or risks identified at this time. ROS: 11:07 Constitutional: Negative for fever, chills rh1 11:07 Eyes: Negative for acute changes. 11:07 ENT: Positive for dental pain, Negative for sore throat, difficulty swallowing, difficulty handling secretions. 11:07 Neck: Negative for pain with movement, pain at rest. 11:07 Cardiovascular: Negative for chest pain. 11:07 Respiratory: Negative for cough, shortness of breath. 11:07 Abdomen/GI: Negative for abdominal pain, nausea, vomiting. 11:07 Back: Negative for decreased range of motion, pain at rest, pain with movement, radiated pain. 11:07 MS/extremity: Positive for contusion, pain, tenderness, Negative for decreased range of motion, deformity, paresthesias, swelling. 11:07 Skin: Negative for abrasions. 11:07 Neuro: Negative for altered mental status, dizziness, loss of consciousness, numbness, syncope, tingling, weakness. 11:07 All other systems are negative. Exam: 11:07 Constitutional: This is a well developed, well nourished patient who is awake, alert, rh1 and in no acute distress. 11:07 Neck: Trachea midline, and no cervical lymphadenopathy. Supple, full range of motion without nuchal rigidity. No Meningismus. Chest/axilla: Normal chest wall appearance and motion. Nontender with no deformity. No lesions are appreciated. Cardiovascular: Regular rate and rhythm with a normal S1 and S2. No gallops, murmurs, or rubs. No JVD. No pulse deficits. Respiratory: Lungs have equal breath sounds bilaterally, clear to auscultation. No rales, rhonchi or wheezes noted. No increased work of breathing. Abdomen/GI: Soft, non-tender, with normal bowel sounds. No distension. No guarding or rebound. No evidence of tenderness throughout. Back: No spinal tenderness. No costovertebral tenderness. Full range of motion. Skin: Warm, dry with normal turgor. Normal color with no rashes, no lesions, and no evidence of cellulitis. 11:07 Head/face: Exam is negative for contusion, swelling, Noted is tenderness, that is mild, of the gums, upper right central incisor and upper left central incisor. 11:07 Eyes: Periorbital structures: appear normal, no contusion, no erythema, no swelling, Pupils: no acute changes, normal size, normal reaction to light, Extraocular movements: no acute changes. 11:07 ENT: External ear(s): are unremarkable, Ear canal(s): are normal, TM's: are normal, no hemotympanum, normal bony landmarks, Nose: is normal, no contusion, no swelling, External nose: no obvious acute abnormality, Nasal septum: is midline, no septal hematoma appreciated, Nasal mucosa: normal, Turbinates: are normal, nasal drainage, is not appreciated, Mouth: is normal, no injury, (-) trismus no ulcerations, no lip abnormalities, Oral mucosa: moist, with small area of contusion and mild swelling at upper inner lip, without abrasion, Posterior pharynx: is normal, normal sized tonsils, normal uvula appearance, Dental exam: normal, no avulsion, no gum swelling, no malocclusion, mildly tender at incisors, right cracked reports prior to yesterday. 11:07 Musculoskeletal/extremity: Extremities: grossly normal except: noted in the dorsal aspect of distal phalanx of left thumb, dorsal aspect of proximal phalanx of left thumb, palmar aspect of distal phalanx of left thumb and palmar aspect of proximal phalanx of left thumb: contusion, decreased ROM, pain, swelling, tenderness, noted in the right knee: contusion, tenderness, vertical well healed incision overlying patella, no evidence of abrasion, decreased ROM, deformity, erythema, laceration, swelling, noted in the left knee: contusion, tenderness, no evidence of abrasion, decreased ROM, deformity, erythema, laceration, swelling, ROM: full active range of motion, in the right hand, left hand, right arm, left arm, right leg and left leg, limited active range of motion due to pain, in the dorsal aspect of distal phalanx of left thumb, dorsal aspect of proximal phalanx of left thumb, palmar aspect of distal phalanx of left thumb and palmar aspect of proximal phalanx of left thumb, Pulses: noted to be 2+ in the right radial artery, right posterior tibial artery, right dorsalis pedis artery, left radial artery, left posterior tibial artery and left dorsalis pedis artery, Perfusion: the extremity is normally perfused throughout, pink, Sensation intact. Weight bearing: able to fully bear weight. 11:07 Neuro: Orientation: is normal, to person, place \T\ time. Mentation: is normal, lucid, able to follow commands, Motor: is normal, moves all fours, strength is 5/5 in all extremities, Sensation: is normal, numbness, is not appreciated, tingling, is not appreciated, Gait: is steady, at a normal pace, without difficulty. Vital Signs: 10:25 BP 148 / 75; Pulse 74; Resp 16 S; Temp 98.4(TE); Pulse Ox 97% on R/A; Weight 83.91 kg aa5 (R); Height 5 ft. 6 in. (167.64 cm) (R); Pain 10/10; 12:00 BP 138 / 78; Pulse 69; Resp 18; Pulse Ox 99% on R/A; em 10:25 Body Mass Index 29.86 (83.91 kg, 167.64 cm) aa5 MDM: 11:07 Patient medically screened. rh1 13:03 Data reviewed: vital signs, nurses notes, radiologic studies, plain films, and as a rh1 result, I will discharge patient. Data interpreted: Pulse oximetry: on room air is 99 %. Interpretation: normal. Counseling: I had a detailed discussion with the patient and/or guardian regarding: the historical points, exam findings, and any diagnostic results supporting the discharge/admit diagnosis, radiology results, the need for outpatient follow up, a family practitioner, to return to the emergency department if symptoms worsen or persist or if there are any questions or concerns that arise at home. Special discussion: I discussed with the patient/guardian in detail that at this point there is no indication for admission to the hospital. It is understood, however, that if the symptoms persist or worsen the patient needs to return immediately for re-evaluation. 12/30 11:06 Order name: Hand Left 3 View XRAY; Complete Time: 13:00 rh1 12/30 11:06 Order name: Knee Right 3 View XRAY; Complete Time: 13:00 rh1 12/30 11:06 Order name: Knee Left 3 View XRAY; Complete Time: 13:00 rh1 12/30 11:51 Order name: Thumb Spica Splint; Complete Time: 12:07 rh1 12/30 11:51 Order name: Davey Wrap: left knee; Complete Time: 12:20 rh1 Administered Medications: 11:13 Drug: Zofran 4 mg Route: PO; em 13:01 Follow up: Response: No adverse reaction; Nausea is decreased em 11:13 Drug: HYDROcodone-acetaminophen 5 mg-325 mg 1 tabs Route: PO; em 13:01 Follow up: Response: No adverse reaction; Pain is decreased em 12:20 Drug: Benadryl 50 mg Route: PO; em 13:01 Follow up: Response: No adverse reaction; Marked relief of symptoms em Disposition: 17:54 Co-signature as Attending Physician, Roger Esquivel MD. rn Disposition: 12/30/18 13:02 Discharged to Home. Impression: Contusion of left knee, Contusion of right knee, Contusion of left thumb without damage to nail. - Condition is Stable. - Discharge Instructions: Elastic Bandage and RICE, Hand Contusion, Knee Pain, Hand Pain. - Medication Reconciliation Form, Thank You Letter, Antibiotic Education, Prescription Opioid Use form. - Follow up: Private Physician; When: 1 - 2 days; Reason: Recheck today's complaints, Continuance of care, Re-evaluation by your physician. Follow up: Emergency Department; When: As needed; Reason: If symptoms return, Worsening of condition. Signatures: Dispatcher [employer] EDEyad Yates, MANAGER OF INTERNAL AUDIT MANAGER OF INTERNAL AUDIT Roger Meek MD MD rn Calderon, Audri, RN RN aa5 Candice Casper, EMA PERSONAL PROTECTION SPECIALIST rh1 Corrections: (The following items were deleted from the chart) 13:11 13:02 12/30/2018 13:02 Discharged to Home. Impression: Contusion of left knee; em Contusion of right knee; Contusion of left thumb without damage to nail. Condition is Stable. Forms are Medication Reconciliation Form, Thank You Letter, Antibiotic Education, Prescription Opioid Use. Follow up: Private Physician; When: 1 - 2 days; Reason: Recheck today's complaints, Continuance of care, Re-evaluation by your physician. Follow up: Emergency Department; When: As needed; Reason: If symptoms return, Worsening of condition. rh1
[2018-12-30 14:27] VITALS: TEMP 98.4
[2018-12-30 14:28] VITALS: BP 138/78; O2SAT 99
== END 2018-12-30 13:11 | disposition home or self-care (01) ==
LOC: ER 10:02
DX: S80.01XA Contusion of right knee, initial encounter (principal); S80.02XA Contusion of left knee, initial encounter; S60.012A Contusion of left thumb without damage to nail, initial encounter; W18.30XA Fall on same level, unspecified, initial encounter; Y93.89 Activity, other specified; Y92.410 Unspecified street and highway as the place of occurrence of the external cause; Z88.6 Allergy status to analgesic agent; Z88.1 Allergy status to other antibiotic agents
CPT/HCPCS: 99283

== ENCOUNTER 2019-04-12 14:38 | Emergency (ER) | payer OTHER ==
--- OUTSIDE RECORDS SUMMARY | 2019-04-12 14:40 | XMS REPORT ---
:1950 [facility] Address [address] [place] [id number] Care Team Providers Name Role Phone ELDER [...] Comments HEPATITIS B SURFACE ANTIBODY (BEAKER) (test pwel=424) < mIU/mL <8.0 HEPATITIS A ANTIBODY, [id number] 14:42:00 Test Item Value Reference Range Comments HEPATITIS A IGG ANTIBODY (BEAKER) (test xylz=7637) Reactive Nonreactive HEPATITIS B SURFACE [id number] 14:23:00 Test Item Value Reference Range Comments HEPATITIS B SURFACE ANTIGEN (2) (BEAKER) (test Nonreactive Nonreactive phxq=9334) HEPATITIS C [id number] 14:23:00 Test Item Value Reference Range Comments HEPATITIS C ANTIBODY (BEAKER) (test wiwo=302) Nonreactive Nonreactive HEPATITIS B CORE ANTIBODY, [id number] 14:23:00 Test Item Value Reference Range Comments HEPATITIS B CORE TOTAL ANTIBODY (BEAKER) (test Nonreactive Nonreactive kssi=890) HEPATIC FUNCTION [id number] 14:04:00 Test Item Value Reference Range Comments TOTAL PROTEIN (BEAKER) (test dczh=482) 9.0 gm/dL 6.0-8.3 ALBUMIN (BEAKER) (test fzju=1649) 4.2 g/dL 3.5-5.0 BILIRUBIN TOTAL (BEAKER) (test wvzl=020) 0.3 mg/dL 0.2-1.2 BILIRUBIN DIRECT (BEAKER) (test qctl=411) 0.2 mg/dL 0.1-0.5 ALKALINE PHOSPHATASE (BEAKER) (test yzfp=416) 111 U/L 40-150 AST (SGOT) (BEAKER) (test ejdg=773) 44 U/L 5-34 ALT (SGPT) (BEAKER) (test hmzy=334) 30 U/L 6-55 BASIC METABOLIC [id number] 14:04:00 Test Item Value Reference Range Comments SODIUM (BEAKER) (test 129 meq/L 136-145 ambn=990) POTASSIUM (BEAKER) (test 4.0 meq/L 3.5-5.1 ovgu=355) CHLORIDE (BEAKER) (test 94 meq/L 98-107 gxpy=203) CO2 (BEAKER) (test 24 meq/L 22-29 ceuv=311) BLOOD UREA NITROGEN 4 mg/dL 7-21 (BEAKER) (test jfqo=448) CREATININE (BEAKER) (test 0.67 mg/dL 0.57-1.25 ljut=911) GLUCOSE RANDOM (BEAKER) 98 mg/dL 70-105 (test lwqa=812) CALCIUM (BEAKER) (test 9.7 mg/dL 8.4-10.2 yzhs=880) EGFR (BEAKER) (test 88 mL/min/1.73 sq m ESTIMATED GFR IS NOT gjpb=1337) ACCURATE CREATININE CLEARANCE IN PREDICTING GLOMERULAR FILTRATION RATE. ESTIMATED GFR IS NOT APPLICABLE FOR DIALYSIS PATIENTS. PROTHROMBIN [id number] 13:45:00 Test Item Value Reference Range Comments PROTIME (BEAKER) (test erby=255) 13.4 seconds 11.7-14.7 INR (BEAKER) (test tscu=213) 1.0 <=5.9 RECOMMENDED COUMADIN/WARFARIN INR THERAPY RANGESSTANDARD DOSE: 2.0 - 3.0 Includes: PROPHYLAXIS forvenous thrombosis, systemic embolization; TREATMENT for venous thrombosis and/or pulmonary embolus.HIGH RISK: Target INR is 2.5-3.5 for patients with mechanical heart valves.CBC W/PLT COUNT & AUTO [id number] 13:31:00 Test Item Value Reference Range Comments WHITE BLOOD CELL COUNT (BEAKER) (test kdxe=368) 5.3 K/ L 3.5-10.5 RED BLOOD CELL COUNT (BEAKER) (test dpyi=262) 4.61 M/ L 3.93-5.22 HEMOGLOBIN (BEAKER) (test qrxi=792) 12.8 GM/DL 11.2-15.7 HEMATOCRIT (BEAKER) (test uprh=175) 39.8 % 34.1-44.9 MEAN CORPUSCULAR VOLUME (BEAKER) (test qjoz=115) 86.3 fL 79.4-94.8 MEAN CORPUSCULAR HEMOGLOBIN (BEAKER) (test 27.8 pg 25.6-32.2 bvak=338) MEAN CORPUSCULAR HEMOGLOBIN CONC (BEAKER) (test 32.2 GM/DL 32.2-35.5 eylh=354) RED CELL DISTRIBUTION WIDTH (BEAKER) (test 14.0 % 11.7-14.4 tzhm=661) PLATELET COUNT (BEAKER) (test tcfx=745) 316 K/CU MM 150-450 MEAN PLATELET VOLUME (BEAKER) (test hvnk=151) 9.7 fL 9.4-12.3 NUCLEATED RED BLOOD CELLS (BEAKER) (test 0 /100 WBC 0-0 kdlz=586) NEUTROPHILS RELATIVE PERCENT (BEAKER) (test 62 % xvkz=992) LYMPHOCYTES RELATIVE PERCENT (BEAKER) (test 22 % dqjp=909) MONOCYTES RELATIVE PERCENT (BEAKER) (test 12 % ajaw=755) EOSINOPHILS RELATIVE PERCENT (BEAKER) (test 4 % piyh=955) BASOPHILS RELATIVE PERCENT (BEAKER) (test 1 % kngn=549) NEUTROPHILS ABSOLUTE COUNT (BEAKER) (test 3.27 K/ L 1.56-6.13 buzm=624) LYMPHOCYTES ABSOLUTE COUNT (BEAKER) (test 1.14 K/ L 1.18-3.74 pgqw=482) MONOCYTES ABSOLUTE COUNT (BEAKER) (test 0.62 K/ L 0.24-0.36 hsry=232) EOSINOPHILS ABSOLUTE COUNT (BEAKER) (test 0.19 K/ L 0.04-0.36 fute=749) BASOPHILS ABSOLUTE COUNT (BEAKER) (test 0.07 K/ L 0.01-0.08 nixz=912) IMMATURE GRANULOCYTES-RELATIVE PERCENT (BEAKER) 0 % 0-1 (test fhhf=1424) COMPREHENSIVE METABOLIC [id number] 12:54:00 Test Item Value Reference Range Comments TOTAL PROTEIN (BEAKER) 8.0 gm/dL 6.0-8.3 Specimen moderately (test aoyi=697) hemolyzed ALBUMIN (BEAKER) (test 3.7 g/dL 3.5-5.0 Specimen moderately zedz=3938) hemolyzed ALKALINE PHOSPHATASE 77 U/L 40-150 (BEAKER) (test lwgv=757) BILIRUBIN TOTAL (BEAKER) 0.4 mg/dL 0.2-1.2 Specimen moderately (test imvr=022) hemolyzed SODIUM (BEAKER) (test 130 meq/L 136-145 vdut=866) POTASSIUM (BEAKER) (test 4.2 meq/L 3.5-5.1 Specimen moderately kgiw=984) hemolyzed CHLORIDE (BEAKER) (test 96 meq/L 98-107 spsn=614) CO2 (BEAKER) (test 24 meq/L 22-29 aokw=665) BLOOD UREA NITROGEN 6 mg/dL 7-21 (BEAKER) (test qnyz=954) CREATININE (BEAKER) (test 0.67 mg/dL 0.57-1.25 Specimen moderately fgvt=367) hemolyzed GLUCOSE RANDOM (BEAKER) 152 mg/dL 70-105 (test equk=553) CALCIUM (BEAKER) (test 9.0 mg/dL 8.4-10.2 aemd=910) AST (SGOT) (BEAKER) (test 44 U/L 5-34 Specimen moderately eriz=193) hemolyzed ALT (SGPT) (BEAKER) (test 27 U/L 6-55 Specimen moderately cdfn=062) hemolyzed EGFR (BEAKER) (test 88 mL/min/1.73 sq m ESTIMATED GFR IS NOT ijrq=4747) ACCURATE CREATININE CLEARANCE IN PREDICTING GLOMERULAR FILTRATION RATE. ESTIMATED GFR IS NOT APPLICABLE FOR DIALYSIS PATIENTS. CBC W/PLT COUNT & AUTO [id number] 12:23:00 Test Item Value Reference Range Comments WHITE BLOOD CELL COUNT (BEAKER) (test lhyw=889) 3.4 K/ L 3.5-10.5 RED BLOOD CELL COUNT (BEAKER) (test ttbo=098) 4.14 M/ L 3.93-5.22 HEMOGLOBIN (BEAKER) (test lacm=517) 11.8 GM/DL 11.2-15.7 HEMATOCRIT (BEAKER) (test xvcv=946) 36.8 % 34.1-44.9 MEAN CORPUSCULAR VOLUME (BEAKER) (test gluv=064) 88.9 fL 79.4-94.8 MEAN CORPUSCULAR HEMOGLOBIN (BEAKER) (test 28.5 pg 25.6-32.2 alei=904) MEAN CORPUSCULAR HEMOGLOBIN CONC (BEAKER) (test 32.1 GM/DL 32.2-35.5 lsmv=494) RED CELL DISTRIBUTION WIDTH (BEAKER) (test 15.5 % 11.7-14.4 xnif=982) PLATELET COUNT (BEAKER) (test kwbk=124) 303 K/CU MM 150-450 MEAN PLATELET VOLUME (BEAKER) (test atrp=591) 10.5 fL 9.4-12.3 NUCLEATED RED BLOOD CELLS (BEAKER) (test 0 /100 WBC 0-0 vqhv=943) NEUTROPHILS RELATIVE PERCENT (BEAKER) (test 59 % ylyi=596) LYMPHOCYTES RELATIVE PERCENT (BEAKER) (test 22 % xpig=417) MONOCYTES RELATIVE PERCENT (BEAKER) (test 16 % gzwu=968) EOSINOPHILS RELATIVE PERCENT (BEAKER) (test 2 % aptg=991) BASOPHILS RELATIVE PERCENT (BEAKER) (test 1 % aofq=626) NEUTROPHILS ABSOLUTE COUNT (BEAKER) (test 2.02 K/ L 1.56-6.13 axhp=539) LYMPHOCYTES ABSOLUTE COUNT (BEAKER) (test 0.73 K/ L 1.18-3.74 ggrm=873) MONOCYTES ABSOLUTE COUNT (BEAKER) (test 0.53 K/ L 0.24-0.36 quqb=645) EOSINOPHILS ABSOLUTE COUNT (BEAKER) (test 0.07 K/ L 0.04-0.36 kheu=207) BASOPHILS ABSOLUTE COUNT (BEAKER) (test 0.04 K/ L 0.01-0.08 ukiw=788) IMMATURE GRANULOCYTES-RELATIVE PERCENT (BEAKER) 0 % 0-1 (test qylw=0354) SEDIMENTATION [id number] 15:52:00 Test Item Value Reference Range Comments SEDIMENTATION RATE, ERYTHROCYTE (BEAKER) (test 48 mm/HR 0-30 mdyt=547) COMPREHENSIVE METABOLIC [id number] 14:48:00 Test Item Value Reference Range Comments TOTAL PROTEIN (BEAKER) 8.3 gm/dL 6.0-8.3 (test lixm=837) ALBUMIN (BEAKER) (test 4.0 g/dL 3.5-5.0 hejw=9437) ALKALINE PHOSPHATASE 71 U/L 40-150 (BEAKER) (test pxcj=337) BILIRUBIN TOTAL (BEAKER) 0.5 mg/dL 0.2-1.2 (test xedd=163) SODIUM (BEAKER) (test 133 meq/L 136-145 mdvl=716) POTASSIUM (BEAKER) (test 3.4 meq/L 3.5-5.1 lloq=726) CHLORIDE (BEAKER) (test 95 meq/L 98-107 shlp=758) CO2 (BEAKER) (test 26 meq/L 22-29 yrbw=100) BLOOD UREA NITROGEN 5 mg/dL 7-21 (BEAKER) (test aqgg=906) CREATININE (BEAKER) (test 0.65 mg/dL 0.57-1.25 zhtm=590) GLUCOSE RANDOM (BEAKER) 130 mg/dL 70-105 (test nifw=151) CALCIUM (BEAKER) (test 9.5 mg/dL 8.4-10.2 zgdv=542) AST (SGOT) (BEAKER) (test 31 U/L 5-34 kgdg=930) ALT (SGPT) (BEAKER) (test 22 U/L 6-55 wpaa=330) EGFR (BEAKER) (test 92 mL/min/1.73 sq m ESTIMATED GFR IS NOT zojg=9207) ACCURATE CREATININE CLEARANCE IN PREDICTING GLOMERULAR FILTRATION RATE. ESTIMATED GFR IS NOT APPLICABLE FOR DIALYSIS PATIENTS. CBC W/PLT COUNT & AUTO [id number] 14:36:00 Test Item Value Reference Range Comments WHITE BLOOD CELL COUNT (BEAKER) (test uvca=264) 6.3 K/ L 4.0-10.0 RED BLOOD CELL COUNT (BEAKER) (test tvhh=735) 4.13 M/ L 4.00-5.00 HEMOGLOBIN (BEAKER) (test dhhm=809) 13.4 GM/DL 12.0-15.0 HEMATOCRIT (BEAKER) (test ejvn=956) 38.5 % 36.0-45.0 MEAN CORPUSCULAR VOLUME (BEAKER) (test ohwz=834) 93.4 fL 82.0-99.0 MEAN CORPUSCULAR HEMOGLOBIN (BEAKER) (test 32.4 pg 27.0-33.0 uefy=976) MEAN CORPUSCULAR HEMOGLOBIN CONC (BEAKER) (test 34.7 GM/DL 32.0-36.0 goki=475) RED CELL DISTRIBUTION WIDTH (BEAKER) (test 12.4 % 10.3-14.2 nthn=638) PLATELET COUNT (BEAKER) (test alju=169) 279 K/CU MM 150-430 MEAN PLATELET VOLUME (BEAKER) (test yxwc=014) 7.9 fL 6.5-10.5 NUCLEATED RED BLOOD CELLS (BEAKER) (test 0 /100 WBC 0-0 axab=087) NEUTROPHILS RELATIVE PERCENT (BEAKER) (test 53 % gxzo=634) LYMPHOCYTES RELATIVE PERCENT (BEAKER) (test 25 % gjtu=086) MONOCYTES RELATIVE PERCENT (BEAKER) (test 17 % gwyt=665) EOSINOPHILS RELATIVE PERCENT (BEAKER) (test 4 % ijlw=889) BASOPHILS RELATIVE PERCENT (BEAKER) (test 1 % hnvp=247) NEUTROPHILS ABSOLUTE COUNT (BEAKER) (test 3.36 K/ L 1.80-8.00 cdif=277) LYMPHOCYTES ABSOLUTE COUNT (BEAKER) (test 1.59 K/ L 1.48-4.50 ezyx=968) MONOCYTES ABSOLUTE COUNT (BEAKER) (test 1.07 K/ L 0.00-1.30 bwlu=003) EOSINOPHILS ABSOLUTE COUNT (BEAKER) (test 0.24 K/ L 0.00-0.50 tmbb=267) BASOPHILS ABSOLUTE COUNT (BEAKER) (test 0.04 K/ L 0.00-0.20 ykuq=763) 0.00
[2019-04-12] MEDS ORDERED: FENTANYL CITR 100 MCG/2 ML ONE (15:34)
[2019-04-12] MEDS ORDERED: ONDANSETRON 4 MG/2 ML VIAL ONE (15:34)
--- NOTE | 2019-04-12 15:46 | RAD REPORT ---
EXAM DESCRIPTION: CT - Spine Lumbar Wo Con - 04/12/2019 3:32 pm CLINICAL HISTORY: Radiculopathy. flank pain;Lower back pain COMPARISON: No comparisons TECHNIQUE: Axial noncontrast CT imaging of the lumbar spine was performed with coronal and sagittal re-formatted images. All CT scans are performed using dose optimization technique as appropriate and may include automated exposure control or mA/KV adjustment according to patient size. FINDINGS: No acute lumbar spine fracture seen. No aggressive marrow pattern identified. Paraspinal tissues are normal in thickness. No paraspinal abscess or hematoma seen. Vacuum disc degeneration with endplate sclerosis present L5-S1. Grade 1 anterolisthesis of L5 on S1 i s seen with bilateral chronic spondylolysis. IMPRESSION: No acute lumbar spine abnormality. Prominent degenerative spondylosis L5-S1.
--- NOTE | 2019-04-12 16:04 | RAD REPORT ---
EXAM DESCRIPTION: RAD - Sacrum And Coccyx - 04/12/2019 3:46 pm CLINICAL HISTORY: PAIN COMPARISON: SPINE LUMBAR W OBLIQUE dated 03/01/2003 FINDINGS: Prominent degenerative changes seen lower lumbar levels. Chronic degenerative mild anterol isthesis with spondylolysis suspected at L5-S1. No acute fractures confirmed.
[2019-04-12 16:21] LABS: Urine Blood NEGATIVE (NEG); Urine Glucose NEGATIVE (NEG); Urine Protein NEGATIVE (NEG)
[2019-04-12 17:10] LABS: Urine Bacteria 20-50 /HPF (<20); Urine Culture Reflex Order REFLEXED; Urine RBC <5 /HPF (NONE SEEN)
[2019-04-12 17:11] LABS: Potassium 3.9 mmol/L (3.5-5.1)
--- NOTE | 2019-04-12 17:21 | ER ---
Nurse's Notes [facility] Name: Linda Miramontes Age: 68 yrs Sex: Female : 1950 Arrival Date: 04/12/2019 Time: 14:42 Bed 15 Private MD: Diagnosis: Low back pain Presentation: 04/12 14:48 Presenting complaint: Patient states: Fell 3 weeks ago and has been having mid ss back-tailbone pain that became worse 4-5 days ago. Transition of care: patient was not received from another setting of care. Onset of symptoms was March 22, 2019. Risk Assessment: Do you want to hurt yourself or someone else? Patient reports no desire to harm self or others. Initial Sepsis Screen: Does the patient have a suspected source of infection? No. Patient's initial sepsis screen is negative. Initial Sepsis Screen:. Care prior to arrival: None. 14:48 Method Of Arrival: Ambulatory ss 14:48 Acuity: JOBY 3 ss 15:40 Initial Sepsis Screen: Does the patient meet any 2 criteria? No. Patient's initial ca1 sepsis screen is negative. Does the patient have a suspected source of infection? No. Patient's initial sepsis screen is negative. Historical: - Allergies: 14:50 Bactrim (Facial Swelling); ss 14:50 Codeine; ss - PMHx: 14:50 Diabetes - NIDDM; Hepatitis; Hypertension; Lupus; Polio; Sepsis; ss - PSHx: 14:50 Cholecystectomy; rotator cuff; shoulder; Knee surgery; Hysterectomy; ss - Immunization history:: Adult Immunizations up to date. - Social history:: Smoking status: Patient/guardian denies using tobacco. - Ebola Screening: : Patient denies exposure to infectious person Patient denies travel to an Ebola-affected area in the 21 days before illness onset. Screenin:40 Abuse screen: Denies threats or abuse. Denies injuries from another. Nutritional ca1 screening: No deficits noted. Tuberculosis screening: No symptoms or risk factors identified. Fall Risk Fall in past 12 months (25 points). IV access (20 points). Assessment: 15:40 General: Appears in no apparent distress. comfortable, Behavior is calm, cooperative, ca1 appropriate for age. Pain: Complains of pain in back Pain currently is 8 out of 10 on a pain scale. Neuro: Level of Consciousness is awake, alert, obeys commands, Oriented to person, place, time, situation. Cardiovascular: Heart tones S1 S2 present Capillary refill < 3 seconds Patient's skin is warm and dry. Respiratory: Airway is patent Respiratory effort is even, unlabored, Respiratory pattern is regular, symmetrical, Breath sounds are clear bilaterally. GI: Abdomen is round non-distended, Bowel sounds present X 4 quads. Abd is soft and non tender X 4 quads. : No deficits noted. No signs and/or symptoms were reported regarding the genitourinary system. EENT: No deficits noted. No signs and/or symptoms were reported regarding the EENT system. Derm: Skin is intact, is healthy with good turgor, Skin is pink, warm \T\ dry. Musculoskeletal: Circulation, motion, and sensation intact. Capillary refill < 3 seconds, Range of motion: intact in all extremities. 16:35 Reassessment: Patient appears in no apparent distress at this time. Patient is alert, ca1 oriented x 3, equal unlabored respirations, skin warm/dry/pink. 17:30 Reassessment: Patient appears in no apparent distress at this time. Patient is alert, ca1 oriented x 3, equal unlabored respirations, skin warm/dry/pink. Vital Signs: 14:49 BP 153 / 74; Pulse 78; Resp 18; Temp 97.0(TE); Pulse Ox 99% on R/A; Weight 83.1 kg; mh5 Height 5 ft. 6 in. (167.64 cm); Pain 10/10; 14:50 Resp 17; Weight 83.91 kg; Height 5 ft. 6 in. (167.64 cm); Pain 10/10; ss 15:54 BP 148 / 74; Pulse 106; Resp 18; Temp 97.8(TE); Pulse Ox 100% ; mh5 16:35 BP 131 / 59; Pulse 71; Resp 17 S; Pulse Ox 100% on R/A; ca1 17:30 BP 154 / 65; Pulse 76; Resp 17 S; Pulse Ox 99% on R/A; ca1 14:50 Body Mass Index 29.86 (83.91 kg, 167.64 cm) ED Course: 14:42 Patient arrived in ED. as 14:50 Triage completed. ss 14:50 Arm band placed on right wrist. ss 14:52 Patient has correct armband on for positive identification. Placed in gown. Bed in low mh5 position. Call light in reach. Side rails up X 1. Adult w/ patient. Pulse ox on. NIBP on. 15:01 Norma Lozada FNP-C is PHCP. kb 15:01 Roger Esquivel MD is Attending Physician. kb 15:23 Siomara Miller, ASHWIN is Primary Nurse. ca1 15:33 CT Lumbar Spine Wo Con In Process Unspecified. EDMS 15:40 Inserted saline lock: 22 gauge in right antecubital area, using aseptic technique. ca1 15:51 Sacrum And Coccyx XRAY In Process Unspecified. EDMS 16:00 No provider procedures requiring assistance completed. ca1 16:09 Urine Dipstick--Ancillary (enter results) Sent. mh5 16:09 Urine collected: clean catch specimen, clear. mh5 16:42 Urine Microscopic Only Sent. mh5 17:30 IV discontinued, intact, bleeding controlled, No redness/swelling at site. Pressure ca1 dressing applied. Administered Medications: 15:40 Drug: Zofran 4 mg Route: IVP; Site: right antecubital; ca1 17:11 Follow up: Response: No adverse reaction; Nausea is decreased ca1 15:45 Drug: fentaNYL (PF) 25 mcg Route: IVP; Site: right antecubital; ca1 17:11 Follow up: Response: No adverse reaction; Pain is decreased; RASS: Alert and Calm (0) ca1 Outcome: 17:20 Discharge ordered by . kb 17:30 Discharged to home ambulatory, with significant other. ca1 17:30 Condition: stable 17:30 Discharge instructions given to patient, Instructed on discharge instructions, follow up and referral plans. Demonstrated understanding of instructions, follow-up care. 17:32 Patient left the ED. ca1 Signatures: Dispatcher [employer] EDWA Norma Lozada FNP-C FNP-Ckb Martinez, Amelia as Smirch, Shelby, RN RN Amalia Brandon [facility] Siomara Miller RN RN ca1
--- NOTE | 2019-04-12 17:21 | EDPHYS ---
Physician Documentation [facility] Name: Linda Miramontes Age: 68 yrs Sex: Female : 1950 Arrival Date: 04/12/2019 Time: 14:42 Bed 15 Private MD: ED Physician Roger Esquivel HPI: 04/12 17:22 This 68 yrs old Female presents to ER via Ambulatory with complaints of Back kb Pain. 17:22 The patient presents with pain that is acute, and tenderness. The symptoms are located kb in the low back. Onset: The symptoms/episode began/occurred 5 day(s) ago. The pain does not radiate. Associated signs and symptoms: The patient has no apparent associated signs or symptoms. The problem was sustained during a fall. Modifying factors: The patient symptoms are alleviated by nothing, the patient symptoms are aggravated by any movement. Severity of symptoms: At their worst the symptoms were moderate, in the emergency department the symptoms are unchanged. The patient has not experienced similar symptoms in the past. The patient has been recently seen by a physician: the patient's primary care provider, Dr. Torres yesterday, with similar presenting complaints, and was sent to the [facility] Emergency Department for further evaluation. Pt reports she fell 2-3 weeks ago due to a trip and has had lower back pain for the past 5 days. States she has also had muscle cramps like she has had before when her potassium has been low. Saw Dr Torres yesterday and was told to come to the ER for evaluation, but she had an appt in [place] this morning so wanted to go to that before coming in. . Historical: - Allergies: 14:50 Bactrim (Facial Swelling); ss 14:50 Codeine; ss - PMHx: 14:50 Diabetes - NIDDM; Hepatitis; Hypertension; Lupus; Polio; Sepsis; ss - PSHx: 14:50 Cholecystectomy; rotator cuff; shoulder; Knee surgery; Hysterectomy; ss - Immunization history:: Adult Immunizations up to date. - Social history:: Smoking status: Patient/guardian denies using tobacco. - Ebola Screening: : Patient denies exposure to infectious person Patient denies travel to an Ebola-affected area in the 21 days before illness onset. ROS: 17:20 Constitutional: Negative for fever, chills, and weight loss, ENT: Negative for injury, kb pain, and discharge, Neck: Negative for injury, pain, and swelling, Cardiovascular: Negative for chest pain, palpitations, and edema, Respiratory: Negative for shortness of breath, cough, wheezing, and pleuritic chest pain, Abdomen/GI: Negative for abdominal pain, nausea, vomiting, diarrhea, and constipation, : Negative for injury, bleeding, discharge, and swelling, MS/Extremity: Negative for injury and deformity, Skin: Negative for injury, rash, and discoloration, Neuro: Negative for headache, weakness, numbness, tingling, and seizure. 17:20 Back: Positive for pain at rest, pain with movement, of the low back area, Negative for injury or acute deformity, decreased range of motion, radiated pain. Exam: 17:20 Constitutional: This is a well developed, well nourished patient who is awake, alert, kb and in no acute distress. Head/Face: Normocephalic, atraumatic. ENT: Nares patent. No nasal discharge, no septal abnormalities noted. Tympanic membranes are normal and external auditory canals are clear. Oropharynx with no redness, swelling, or masses, exudates, or evidence of obstruction, uvula midline. Mucous membranes moist. Neck: Trachea midline, no thyromegaly or masses palpated, and no cervical lymphadenopathy. Supple, full range of motion without nuchal rigidity, or vertebral point tenderness. No Meningismus. Chest/axilla: Normal chest wall appearance and motion. Nontender with no deformity. No lesions are appreciated. Cardiovascular: Regular rate and rhythm with a normal S1 and S2. No gallops, murmurs, or rubs. Normal PMI, no JVD. No pulse deficits. Respiratory: Lungs have equal breath sounds bilaterally, clear to auscultation and percussion. No rales, rhonchi or wheezes noted. No increased work of breathing, no retractions or nasal flaring. Abdomen/GI: Soft, non-tender, with normal bowel sounds. No distension or tympany. No guarding or rebound. No evidence of tenderness throughout. Skin: Warm, dry with normal turgor. Normal color with no rashes, no lesions, and no evidence of cellulitis. MS/ Extremity: Pulses equal, no cyanosis. Neurovascular intact. Full, normal range of motion. Neuro: Awake and alert, GCS 15, oriented to person, place, time, and situation. Cranial nerves II-XII grossly intact. Motor strength 5/5 in all extremities. Sensory grossly intact. Cerebellar exam normal. Normal gait. 17:20 Back: pain, that is moderate, of the low back area, ROM is painful, with all movement, normal spinal alignment noted. Vital Signs: 14:49 BP 153 / 74; Pulse 78; Resp 18; Temp 97.0(TE); Pulse Ox 99% on R/A; Weight 83.1 kg; mh5 Height 5 ft. 6 in. (167.64 cm); Pain 10/10; 14:50 Resp 17; Weight 83.91 kg; Height 5 ft. 6 in. (167.64 cm); Pain 10/10; ss 15:54 BP 148 / 74; Pulse 106; Resp 18; Temp 97.8(TE); Pulse Ox 100% ; mh5 16:35 BP 131 / 59; Pulse 71; Resp 17 S; Pulse Ox 100% on R/A; ca1 17:30 BP 154 / 65; Pulse 76; Resp 17 S; Pulse Ox 99% on R/A; ca1 14:50 Body Mass Index 29.86 (83.91 kg, 167.64 cm) ss MDM: 15:01 Patient medically screened. kb 15:38 Data reviewed: vital signs, nurses notes. Data interpreted: Pulse oximetry: on room air kb is 99 %. Interpretation: normal. 17:19 Counseling: I had a detailed discussion with the patient and/or guardian regarding: the kb historical points, exam findings, and any diagnostic results supporting the discharge/admit diagnosis, lab results, radiology results, the need for outpatient follow up, a family practitioner, to return to the emergency department if symptoms worsen or persist or if there are any questions or concerns that arise at home. 04/12 15:16 Order name: Basic Metabolic Panel; Complete Time: 17:13 kb 04/12 15:30 Order name: Urine Dipstick--Ancillary (enter results); Complete Time: 16:26 bd 04/12 15:16 Order name: Sacrum And Coccyx XRAY; Complete Time: 16:12 kb 04/12 15:16 Order name: CT Lumbar Spine Wo Con; Complete Time: 16:05 kb 04/12 16:26 Order name: Urine Microscopic Only; Complete Time: 17:13 kb 04/12 17:12 Order name: Urine Culture EDNE 04/12 15:16 Order name: Urine Dipstick-Ancillary (obtain specimen); Complete Time: 16:08 kb 04/12 15:16 Order name: IV Start; Complete Time: 16:08 kb Administered Medications: 15:40 Drug: Zofran 4 mg Route: IVP; Site: right antecubital; ca1 17:11 Follow up: Response: No adverse reaction; Nausea is decreased ca1 15:45 Drug: fentaNYL (PF) 25 mcg Route: IVP; Site: right antecubital; ca1 17:11 Follow up: Response: No adverse reaction; Pain is decreased; RASS: Alert and Calm (0) ca1 Disposition: 17:59 Co-signature as Attending Physician, Roger Esquivel MD. rn Disposition: 04/12/19 17:20 Discharged to Home. Impression: Low back pain. - Condition is Stable. - Discharge Instructions: Back Injury Prevention, Zcit-cx-Qzna, Back Pain, Adult, Rjfk-st-Pdlz, Back Exercises, Kibh-ua-Kjme. - Medication Reconciliation Form, Thank You Letter, Antibiotic Education, Prescription Opioid Use form. - Follow up: Emergency Department; When: As needed; Reason: Worsening of condition. Follow up: Private Physician; When: 2 - 3 days; Reason: Recheck today's complaints, Continuance of care, Re-evaluation by your physician. Signatures: Dispatcher [employer] EDNE Norma Lozada, MANAGER PAYER-C MANAGER PAYER-Ckb Roger Esquivel MD MD rn Smirch, Shelby, RN RN Siomara Miller RN RN ca1 Corrections: (The following items were deleted from the chart) 17:32 17:20 04/12/2019 17:20 Discharged to Home. Impression: Low back pain. Condition is ca1 Stable. Forms are Medication Reconciliation Form, Thank You Letter, Antibiotic Education, Prescription Opioid Use. Follow up: Emergency Department; When: As needed; Reason: Worsening of condition. Follow up: Private Physician; When: 2 - 3 days; Reason: Recheck today's complaints, Continuance of care, Re-evaluation by your physician. kb
[2019-04-12 17:58] VITALS: TEMP 97.8
[2019-04-12 18:02] VITALS: BP 154/65; O2SAT 99
== END 2019-04-12 17:32 | disposition home or self-care (01) ==
LOC: ER 14:38
DX: M54.5 Low back pain (principal); I10 Essential (primary) hypertension; E11.9 Type 2 diabetes mellitus without complications; Z88.1 Allergy status to other antibiotic agents; Z88.5 Allergy status to narcotic agent
CPT/HCPCS: 87088; 87086; 80048; 36415; 72131; 72220; 96375; 96374; 99284; J3010; J2405; 81003; 81015

== ENCOUNTER 2019-05-03 13:59 | Emergency (ER) | payer OTHER ==
--- OUTSIDE RECORDS SUMMARY | 2019-05-03 14:02 | XMS REPORT ---
:1950 [facility] Address [address] [place] [id number] Care Team Providers Name Role Phone ELDER [...] Comments HEPATITIS B SURFACE ANTIBODY (BEAKER) (test jhdt=608) < mIU/mL <8.0 HEPATITIS A ANTIBODY, [id number] 14:42:00 Test Item Value Reference Range Comments HEPATITIS A IGG ANTIBODY (BEAKER) (test hyin=8340) Reactive Nonreactive HEPATITIS B SURFACE [id number] 14:23:00 Test Item Value Reference Range Comments HEPATITIS B SURFACE ANTIGEN (2) (BEAKER) (test Nonreactive Nonreactive rmde=7536) HEPATITIS C [id number] 14:23:00 Test Item Value Reference Range Comments HEPATITIS C ANTIBODY (BEAKER) (test imoi=379) Nonreactive Nonreactive HEPATITIS B CORE ANTIBODY, [id number] 14:23:00 Test Item Value Reference Range Comments HEPATITIS B CORE TOTAL ANTIBODY (BEAKER) (test Nonreactive Nonreactive mqqs=145) HEPATIC FUNCTION [id number] 14:04:00 Test Item Value Reference Range Comments TOTAL PROTEIN (BEAKER) (test atsq=301) 9.0 gm/dL 6.0-8.3 ALBUMIN (BEAKER) (test tcxx=2401) 4.2 g/dL 3.5-5.0 BILIRUBIN TOTAL (BEAKER) (test kvfy=831) 0.3 mg/dL 0.2-1.2 BILIRUBIN DIRECT (BEAKER) (test qqbz=264) 0.2 mg/dL 0.1-0.5 ALKALINE PHOSPHATASE (BEAKER) (test drrw=298) 111 U/L 40-150 AST (SGOT) (BEAKER) (test mkyr=491) 44 U/L 5-34 ALT (SGPT) (BEAKER) (test bmbm=136) 30 U/L 6-55 BASIC METABOLIC [id number] 14:04:00 Test Item Value Reference Range Comments SODIUM (BEAKER) (test 129 meq/L 136-145 wmsm=994) POTASSIUM (BEAKER) (test 4.0 meq/L 3.5-5.1 walj=182) CHLORIDE (BEAKER) (test 94 meq/L 98-107 leas=771) CO2 (BEAKER) (test 24 meq/L 22-29 tdzn=941) BLOOD UREA NITROGEN 4 mg/dL 7-21 (BEAKER) (test uvdt=333) CREATININE (BEAKER) (test 0.67 mg/dL 0.57-1.25 bwqa=461) GLUCOSE RANDOM (BEAKER) 98 mg/dL 70-105 (test kbum=558) CALCIUM (BEAKER) (test 9.7 mg/dL 8.4-10.2 fxow=185) EGFR (BEAKER) (test 88 mL/min/1.73 sq m ESTIMATED GFR IS NOT rbqz=1349) ACCURATE CREATININE CLEARANCE IN PREDICTING GLOMERULAR FILTRATION RATE. ESTIMATED GFR IS NOT APPLICABLE FOR DIALYSIS PATIENTS. PROTHROMBIN [id number] 13:45:00 Test Item Value Reference Range Comments PROTIME (BEAKER) (test hzup=113) 13.4 seconds 11.7-14.7 INR (BEAKER) (test hinb=669) 1.0 <=5.9 RECOMMENDED COUMADIN/WARFARIN INR THERAPY RANGESSTANDARD DOSE: 2.0 - 3.0 Includes: PROPHYLAXIS forvenous thrombosis, systemic embolization; TREATMENT for venous thrombosis and/or pulmonary embolus.HIGH RISK: Target INR is 2.5-3.5 for patients with mechanical heart valves.CBC W/PLT COUNT & AUTO [id number] 13:31:00 Test Item Value Reference Range Comments WHITE BLOOD CELL COUNT (BEAKER) (test ftrs=729) 5.3 K/ L 3.5-10.5 RED BLOOD CELL COUNT (BEAKER) (test ipjb=308) 4.61 M/ L 3.93-5.22 HEMOGLOBIN (BEAKER) (test vprj=318) 12.8 GM/DL 11.2-15.7 HEMATOCRIT (BEAKER) (test vvvx=991) 39.8 % 34.1-44.9 MEAN CORPUSCULAR VOLUME (BEAKER) (test fjav=776) 86.3 fL 79.4-94.8 MEAN CORPUSCULAR HEMOGLOBIN (BEAKER) (test 27.8 pg 25.6-32.2 fymk=705) MEAN CORPUSCULAR HEMOGLOBIN CONC (BEAKER) (test 32.2 GM/DL 32.2-35.5 wkex=260) RED CELL DISTRIBUTION WIDTH (BEAKER) (test 14.0 % 11.7-14.4 qevd=053) PLATELET COUNT (BEAKER) (test aedo=092) 316 K/CU MM 150-450 MEAN PLATELET VOLUME (BEAKER) (test zwjb=675) 9.7 fL 9.4-12.3 NUCLEATED RED BLOOD CELLS (BEAKER) (test 0 /100 WBC 0-0 suci=979) NEUTROPHILS RELATIVE PERCENT (BEAKER) (test 62 % dbqe=983) LYMPHOCYTES RELATIVE PERCENT (BEAKER) (test 22 % vitn=207) MONOCYTES RELATIVE PERCENT (BEAKER) (test 12 % xrmh=498) EOSINOPHILS RELATIVE PERCENT (BEAKER) (test 4 % hqdl=792) BASOPHILS RELATIVE PERCENT (BEAKER) (test 1 % pffw=116) NEUTROPHILS ABSOLUTE COUNT (BEAKER) (test 3.27 K/ L 1.56-6.13 wcqb=644) LYMPHOCYTES ABSOLUTE COUNT (BEAKER) (test 1.14 K/ L 1.18-3.74 vpur=056) MONOCYTES ABSOLUTE COUNT (BEAKER) (test 0.62 K/ L 0.24-0.36 cysg=113) EOSINOPHILS ABSOLUTE COUNT (BEAKER) (test 0.19 K/ L 0.04-0.36 wahs=824) BASOPHILS ABSOLUTE COUNT (BEAKER) (test 0.07 K/ L 0.01-0.08 vakl=061) IMMATURE GRANULOCYTES-RELATIVE PERCENT (BEAKER) 0 % 0-1 (test tepv=5987) COMPREHENSIVE METABOLIC [id number] 12:54:00 Test Item Value Reference Range Comments TOTAL PROTEIN (BEAKER) 8.0 gm/dL 6.0-8.3 Specimen moderately (test crlb=155) hemolyzed ALBUMIN (BEAKER) (test 3.7 g/dL 3.5-5.0 Specimen moderately umxm=0199) hemolyzed ALKALINE PHOSPHATASE 77 U/L 40-150 (BEAKER) (test kiyb=265) BILIRUBIN TOTAL (BEAKER) 0.4 mg/dL 0.2-1.2 Specimen moderately (test zpkf=095) hemolyzed SODIUM (BEAKER) (test 130 meq/L 136-145 xsky=912) POTASSIUM (BEAKER) (test 4.2 meq/L 3.5-5.1 Specimen moderately upkd=567) hemolyzed CHLORIDE (BEAKER) (test 96 meq/L 98-107 labk=271) CO2 (BEAKER) (test 24 meq/L 22-29 nbvg=834) BLOOD UREA NITROGEN 6 mg/dL 7-21 (BEAKER) (test zzso=961) CREATININE (BEAKER) (test 0.67 mg/dL 0.57-1.25 Specimen moderately ppbh=558) hemolyzed GLUCOSE RANDOM (BEAKER) 152 mg/dL 70-105 (test eroq=511) CALCIUM (BEAKER) (test 9.0 mg/dL 8.4-10.2 rvkz=299) AST (SGOT) (BEAKER) (test 44 U/L 5-34 Specimen moderately knfg=891) hemolyzed ALT (SGPT) (BEAKER) (test 27 U/L 6-55 Specimen moderately oeoe=474) hemolyzed EGFR (BEAKER) (test 88 mL/min/1.73 sq m ESTIMATED GFR IS NOT fojp=5678) ACCURATE CREATININE CLEARANCE IN PREDICTING GLOMERULAR FILTRATION RATE. ESTIMATED GFR IS NOT APPLICABLE FOR DIALYSIS PATIENTS. CBC W/PLT COUNT & AUTO [id number] 12:23:00 Test Item Value Reference Range Comments WHITE BLOOD CELL COUNT (BEAKER) (test cbbx=504) 3.4 K/ L 3.5-10.5 RED BLOOD CELL COUNT (BEAKER) (test vhhi=965) 4.14 M/ L 3.93-5.22 HEMOGLOBIN (BEAKER) (test glgk=559) 11.8 GM/DL 11.2-15.7 HEMATOCRIT (BEAKER) (test kgas=857) 36.8 % 34.1-44.9 MEAN CORPUSCULAR VOLUME (BEAKER) (test yrix=199) 88.9 fL 79.4-94.8 MEAN CORPUSCULAR HEMOGLOBIN (BEAKER) (test 28.5 pg 25.6-32.2 eheg=703) MEAN CORPUSCULAR HEMOGLOBIN CONC (BEAKER) (test 32.1 GM/DL 32.2-35.5 jseh=139) RED CELL DISTRIBUTION WIDTH (BEAKER) (test 15.5 % 11.7-14.4 zeka=581) PLATELET COUNT (BEAKER) (test jwzf=766) 303 K/CU MM 150-450 MEAN PLATELET VOLUME (BEAKER) (test yvpk=469) 10.5 fL 9.4-12.3 NUCLEATED RED BLOOD CELLS (BEAKER) (test 0 /100 WBC 0-0 txqu=543) NEUTROPHILS RELATIVE PERCENT (BEAKER) (test 59 % sefi=704) LYMPHOCYTES RELATIVE PERCENT (BEAKER) (test 22 % cqgx=263) MONOCYTES RELATIVE PERCENT (BEAKER) (test 16 % vxmp=709) EOSINOPHILS RELATIVE PERCENT (BEAKER) (test 2 % emoi=409) BASOPHILS RELATIVE PERCENT (BEAKER) (test 1 % uxgo=102) NEUTROPHILS ABSOLUTE COUNT (BEAKER) (test 2.02 K/ L 1.56-6.13 zmvd=935) LYMPHOCYTES ABSOLUTE COUNT (BEAKER) (test 0.73 K/ L 1.18-3.74 mqui=952) MONOCYTES ABSOLUTE COUNT (BEAKER) (test 0.53 K/ L 0.24-0.36 dfto=510) EOSINOPHILS ABSOLUTE COUNT (BEAKER) (test 0.07 K/ L 0.04-0.36 pleb=515) BASOPHILS ABSOLUTE COUNT (BEAKER) (test 0.04 K/ L 0.01-0.08 jlax=890) IMMATURE GRANULOCYTES-RELATIVE PERCENT (BEAKER) 0 % 0-1 (test msxu=5013) SEDIMENTATION [id number] 15:52:00 Test Item Value Reference Range Comments SEDIMENTATION RATE, ERYTHROCYTE (BEAKER) (test 48 mm/HR 0-30 ihmm=614) COMPREHENSIVE METABOLIC [id number] 14:48:00 Test Item Value Reference Range Comments TOTAL PROTEIN (BEAKER) 8.3 gm/dL 6.0-8.3 (test ixkw=049) ALBUMIN (BEAKER) (test 4.0 g/dL 3.5-5.0 ugws=1073) ALKALINE PHOSPHATASE 71 U/L 40-150 (BEAKER) (test qfje=479) BILIRUBIN TOTAL (BEAKER) 0.5 mg/dL 0.2-1.2 (test rtuv=996) SODIUM (BEAKER) (test 133 meq/L 136-145 ebfz=706) POTASSIUM (BEAKER) (test 3.4 meq/L 3.5-5.1 kspk=012) CHLORIDE (BEAKER) (test 95 meq/L 98-107 tlcu=489) CO2 (BEAKER) (test 26 meq/L 22-29 oedp=345) BLOOD UREA NITROGEN 5 mg/dL 7-21 (BEAKER) (test sfdk=045) CREATININE (BEAKER) (test 0.65 mg/dL 0.57-1.25 itgd=117) GLUCOSE RANDOM (BEAKER) 130 mg/dL 70-105 (test tgeg=704) CALCIUM (BEAKER) (test 9.5 mg/dL 8.4-10.2 wqpl=983) AST (SGOT) (BEAKER) (test 31 U/L 5-34 hzkj=700) ALT (SGPT) (BEAKER) (test 22 U/L 6-55 jhxy=875) EGFR (BEAKER) (test 92 mL/min/1.73 sq m ESTIMATED GFR IS NOT rwmf=0576) ACCURATE CREATININE CLEARANCE IN PREDICTING GLOMERULAR FILTRATION RATE. ESTIMATED GFR IS NOT APPLICABLE FOR DIALYSIS PATIENTS. CBC W/PLT COUNT & AUTO [id number] 14:36:00 Test Item Value Reference Range Comments WHITE BLOOD CELL COUNT (BEAKER) (test vkrb=603) 6.3 K/ L 4.0-10.0 RED BLOOD CELL COUNT (BEAKER) (test vkib=786) 4.13 M/ L 4.00-5.00 HEMOGLOBIN (BEAKER) (test guyn=187) 13.4 GM/DL 12.0-15.0 HEMATOCRIT (BEAKER) (test uerh=635) 38.5 % 36.0-45.0 MEAN CORPUSCULAR VOLUME (BEAKER) (test luuk=553) 93.4 fL 82.0-99.0 MEAN CORPUSCULAR HEMOGLOBIN (BEAKER) (test 32.4 pg 27.0-33.0 hgmc=390) MEAN CORPUSCULAR HEMOGLOBIN CONC (BEAKER) (test 34.7 GM/DL 32.0-36.0 crgy=874) RED CELL DISTRIBUTION WIDTH (BEAKER) (test 12.4 % 10.3-14.2 cgce=744) PLATELET COUNT (BEAKER) (test kcbz=066) 279 K/CU MM 150-430 MEAN PLATELET VOLUME (BEAKER) (test wgvu=548) 7.9 fL 6.5-10.5 NUCLEATED RED BLOOD CELLS (BEAKER) (test 0 /100 WBC 0-0 ijtp=908) NEUTROPHILS RELATIVE PERCENT (BEAKER) (test 53 % ejlj=375) LYMPHOCYTES RELATIVE PERCENT (BEAKER) (test 25 % njzs=344) MONOCYTES RELATIVE PERCENT (BEAKER) (test 17 % mtln=272) EOSINOPHILS RELATIVE PERCENT (BEAKER) (test 4 % iyga=541) BASOPHILS RELATIVE PERCENT (BEAKER) (test 1 % wzpj=534) NEUTROPHILS ABSOLUTE COUNT (BEAKER) (test 3.36 K/ L 1.80-8.00 itsj=761) LYMPHOCYTES ABSOLUTE COUNT (BEAKER) (test 1.59 K/ L 1.48-4.50 ohor=116) MONOCYTES ABSOLUTE COUNT (BEAKER) (test 1.07 K/ L 0.00-1.30 ziix=934) EOSINOPHILS ABSOLUTE COUNT (BEAKER) (test 0.24 K/ L 0.00-0.50 utlf=314) BASOPHILS ABSOLUTE COUNT (BEAKER) (test 0.04 K/ L 0.00-0.20 aadt=094) 0.00
[2019-05-03] MEDS ORDERED: ONDANSETRON 4 MG/2 ML VIAL ONE (15:22)
[2019-05-03] MEDS ORDERED: MORPHINE 4 MG/ML SYR ONE ×2 (15:22→17:18)
[2019-05-03 15:36] LABS: Absolute Lymphocytes (CBC) 0.9 K/uL (0.7-4.9); Basophils % 1.4 % (0-1.3); Lymphocytes % 17.3 % (15.3-44.8); MPV 8.2 fL (7.6-11.3); RBC Red Blood Cell Count 4.21 M/uL (3.86-4.86)
[2019-05-03 15:37] LABS: Protime INR 1.02
--- NOTE | 2019-05-03 15:40 | RAD REPORT ---
EXAM DESCRIPTION: CT - Head Brain Wo Cont - 05/03/2019 3:27 pm CLINICAL HISTORY: DIZZINESS Headache, drowsiness COMPARISON: HEAD BRAIN W O CONTRAST dated 05/12/2009; HEAD BRAIN W O CONTRAST dated 01/07/2009 TECHNIQUE: All CT scans are performed using dose optimization technique as appropriate and may inclu de automated exposure control or mA/KV adjustment according to patient size. FINDINGS: No intracranial hemorrhage, hydrocephalus or extra-axial fluid collection.No areas of brai n edema or evidence of midline shift. The paranasal sinuses and mastoids are clear. The calvarium is intact. IMPRESSION: No acute intracranial abnormality.
--- NOTE | 2019-05-03 15:48 | RAD REPORT ---
EXAM DESCRIPTION: CT - Stone Protocol - 05/03/2019 3:26 pm CLINICAL HISTORY: Flank pain. Abd pain;Flank pain COMPARISON: Abdomen Pelvis W Contrast dated 08/23/2018 TECHNIQUE: Axial images were obtained without oral or IV contrast. Lack of contrast limits solid org an and vascular assessment. The [id number] spans the entirety of the system partially obscuring uppermost abdomen and lung bases. Coronal reformatted images were obtained and reviewed. All CT scans are performed using dose optimization technique as appropriate and may include automated exposure control or mA/KV adjustment according to patient size. FINDINGS: The lower lung fuentes are clear. Imaged portions of the liver and spleen show no suspicious findings on non-contrast imaging. The panc reas and adrenal glands are normal. No pathologic lymphadenopathy in the abdomen or pelvis. Punctate calculi are present in both kidneys. No obstructing renal calculus seen. Small air bubble se en in the urinary bladder. Exophytic lesion medial superior left kidney measuring 10 mm is incomplete ly assessed on this limited noncontrast study. No bowel obstruction, free air, free fluid or abscess. Normal sized appendix with several appendicoli th suspected.Colonic diverticulosis is present. Advanced lumbar degenerative changes. IMPRESSION: Punctate nephrolithiasis bilaterally without obstructing stone. Tiny air bubble in the bladder suggests cystitis.
[2019-05-03 16:03] LABS: ALT/SGPT 27 U/L (12-78); AST/SGOT 26 U/L (15-37); Albumin 3.8 g/dL (3.4-5.0); Alkaline Phosphatase 103 U/L (45-117); BUN Blood Urea Nitrogen 5 mg/dL (7-18); Bicarbonate 26 mmol/L (21-32); Bilirubin Direct < 0.1 mg/dL (0-0.2); Bilirubin Total 0.3 mg/dL (0.2-1.0); Glucose Level 76 mg/dL (74-106); Lipase 201 U/L (73-393); Magnesium 1.7 mg/dL (1.8-2.4); NT PRO-BNP 112 pg/mL (<125); Potassium 3.6 mmol/L (3.5-5.1); Protein, Total 8.3 g/dL (6.4-8.2); Sodium Level 127 mmol/L (136-145); Troponin (Emerg Dept Use Only) < 0.02 ng/mL (0.0-0.045)
--- NOTE | 2019-05-03 16:05 | RAD REPORT ---
EXAM DESCRIPTION: RAD - Chest Single View - 05/03/2019 2:54 pm CLINICAL HISTORY: Cough;Abdominal distention Chest pain. COMPARISON: Chest Single View dated 10/26/2018; Chest Pa And Lat (2 Views) dated 08/23/2018; Chest Pa An d Lat (2 Views) dated 09/04/2017; Abdomen 1 View (KUB) dated 06/30/2016 FINDINGS: Portable technique limits examination quality. The lungs are grossly clear. The heart is upper limit normal in size. No displaced fractures. IMPRESSION: No acute intrathoracic process suspected.
[2019-05-03] MEDS ORDERED: PROMETHAZINE INJ 25 MG/ML AMP ONE (16:06)
--- NOTE | 2019-05-03 17:05 | EDPHYS ---
Physician Documentation [facility] Name: Linda Miramontes Age: 68 yrs Sex: Female : 1950 Arrival Date: 05/03/2019 Time: 14:01 Bed 14 Private MD: Kristian Torres V ED Physician Klaus Gil HPI: 05/03 14:41 This 68 yrs old Female presents to ER via Ambulatory with complaints of shelia Nausea, Chest Pain. 14:41 The patient presents to the emergency department with nausea, that is mild, that is shelia moderate. Onset: The symptoms/episode began/occurred 14 day(s) ago. Possible causes: unknown. The symptoms are aggravated by nothing. The symptoms are alleviated by nothing. Associated signs and symptoms: The patient has no apparent associated signs or symptoms. Severity of symptoms: At their worst the symptoms were mild moderate in the emergency department the symptoms are unchanged. The patient has experienced similar episodes in the past, several times. Historical: - Allergies: 14:07 Bactrim (Facial Swelling); sg 14:07 Codeine; sg - PMHx: 14:07 Diabetes - NIDDM; Hepatitis; Hypertension; Lupus; Polio; Sepsis; sg - PSHx: 14:07 Cholecystectomy; rotator cuff; shoulder; Knee surgery; Hysterectomy; sg - Immunization history:: Adult Immunizations unknown. - Family history:: not pertinent. - Ebola Screening: : No symptoms or risks identified at this time. - Social history:: Smoking status: Patient/guardian denies using tobacco. ROS: 14:41 Constitutional: Negative for fever, chills, and weight loss, Eyes: Negative for injury, shelia pain, redness, and discharge, ENT: Negative for injury, pain, and discharge, Neck: Negative for injury, pain, and swelling, Cardiovascular: Negative for chest pain, palpitations, and edema, Respiratory: Negative for shortness of breath, cough, wheezing, and pleuritic chest pain, Abdomen/GI: Negative for abdominal pain, nausea, vomiting, diarrhea, and constipation, : Negative for injury, bleeding, discharge, and swelling, MS/Extremity: Negative for injury and deformity, Skin: Negative for injury, rash, and discoloration, Neuro: Negative for headache, weakness, numbness, tingling, and seizure, Psych: Negative for depression, anxiety, suicide ideation, homicidal ideation, and hallucinations, Allergy/Immunology: Negative for hives, rash, and allergies, Endocrine: Negative for neck swelling, polydipsia, polyuria, polyphagia, and marked weight changes, Hematologic/Lymphatic: Negative for swollen nodes, abnormal bleeding, and unusual bruising. 14:41 Back: Positive for flank pain, bilaterally. Exam: 14:41 Constitutional: This is a well developed, well nourished patient who is awake, alert, shelia and in no acute distress. Head/Face: Normocephalic, atraumatic. Eyes: Pupils equal round and reactive to light, extra-ocular motions intact. Lids and lashes normal. Conjunctiva and sclera are non-icteric and not injected. Cornea within normal limits. Periorbital areas with no swelling, redness, or edema. ENT: Nares patent. No nasal discharge, no septal abnormalities noted. Tympanic membranes are normal and external auditory canals are clear. Oropharynx with no redness, swelling, or masses, exudates, or evidence of obstruction, uvula midline. Mucous membranes moist. Neck: Trachea midline, no thyromegaly or masses palpated, and no cervical lymphadenopathy. Supple, full range of motion without nuchal rigidity, or vertebral point tenderness. No Meningismus. Chest/axilla: Normal chest wall appearance and motion. Nontender with no deformity. No lesions are appreciated. Cardiovascular: Regular rate and rhythm with a normal S1 and S2. No gallops, murmurs, or rubs. Normal PMI, no JVD. No pulse deficits. Respiratory: Lungs have equal breath sounds bilaterally, clear to auscultation and percussion. No rales, rhonchi or wheezes noted. No increased work of breathing, no retractions or nasal flaring. Abdomen/GI: Soft, non-tender, with normal bowel sounds. No distension or tympany. No guarding or rebound. No evidence of tenderness throughout. Back: No spinal tenderness. No costovertebral tenderness. Full range of motion. Female : Normal external genitalia. Skin: Warm, dry with normal turgor. Normal color with no rashes, no lesions, and no evidence of cellulitis. MS/ Extremity: Pulses equal, no cyanosis. Neurovascular intact. Full, normal range of motion. Neuro: Awake and alert, GCS 15, oriented to person, place, time, and situation. Cranial nerves II-XII grossly intact. Motor strength 5/5 in all extremities. Sensory grossly intact. Cerebellar exam normal. Normal gait. Psych: Awake, alert, with orientation to person, place and time. Behavior, mood, and affect are within normal limits. 14:44 Musculoskeletal/extremity: DVT Exam: No signs of deep vein thrombosis. no pain, no shelia swelling, no tenderness, negative Homans' sign noted on exam, no appreciated bluish discoloration, no erythema, no increased warmth. Vital Signs: 14:15 BP 164 / 72; Pulse 87; Resp 17; Temp 97.8; Pulse Ox 98% on R/A; sg 15:47 BP 145 / 70; Pulse 88; Resp 16; Temp 97.6(O); Pulse Ox 100% on R/A; mh5 17:09 BP 143 / 69; Pulse 89; Resp 17; Temp 97.8(O); Pulse Ox 100% on R/A; mh5 17:42 BP 137 / 70; Pulse 87; Resp 18; Temp 98.0; Pulse Ox 99% on R/A; ph 18:45 BP 140 / 72; Pulse 86; Resp 16; Temp 97.9; Pulse Ox 98% on R/A; ph MDM: 14:27 Patient medically screened. [facility] 14:44 Data reviewed: vital signs, nurses notes, lab test result(s), EKG, radiologic studies, [facility] CT scan, plain films. 17:06 Special discussion: discussed with dr torres, if second trop neg dc to follow up. [facility] 05/03 14:41 Order name: Basic Metabolic Panel; Complete Time: 16:24 [facility] 05/03 14:41 Order name: CBC with Diff; Complete Time: 16:24 [facility] 05/03 14:41 Order name: LFT's; Complete Time: 16:24 [facility] 05/03 14:41 Order name: Magnesium; Complete Time: 16:24 [facility] 05/03 14:41 Order name: NT PRO-BNP; Complete Time: 16:24 [facility] 05/03 14:41 Order name: PT-INR; Complete Time: 16:24 [facility] 05/03 14:41 Order name: Troponin (emerg Dept Use Only); Complete Time: 16:24 [facility] 05/03 14:41 Order name: XRAY Chest (1 view); Complete Time: 16:24 [facility] 05/03 14:41 Order name: Lactate; Complete Time: 16:24 [facility] 05/03 14:41 Order name: Procalcitonin; Complete Time: 16:24 [facility] 05/03 14:41 Order name: Lipase; Complete Time: 16:24 [facility] 05/03 14:41 Order name: Urine Culture [facility] 05/03 16:25 Order name: Troponin (emerg Dept Use Only); Complete Time: 18:21 [facility] 05/03 16:59 Order name: Urine Dipstick--Ancillary (enter results); Complete Time: 18:21 05/03 14:24 Order name: EKG Electrocardiogram [facility] 05/03 14:41 Order name: Cardiac monitoring; Complete Time: 17:49 [facility] 05/03 14:41 Order name: EKG - Nurse/Tech; Complete Time: 17:49 [facility] 05/03 14:41 Order name: IV Saline Lock; Complete Time: 17:49 [facility] 05/03 14:41 Order name: Labs collected and sent; Complete Time: 17:49 [facility] 05/03 14:41 Order name: O2 Per Protocol; Complete Time: 17:49 [facility] 05/03 14:41 Order name: O2 Sat Monitoring; Complete Time: 17:49 [facility] 05/03 14:41 Order name: CT Stone Protocol; Complete Time: 16:24 [facility] 05/03 14:41 Order name: CT Head Brain wo Cont; Complete Time: 16:24 [facility] 05/03 14:41 Order name: Urine Dipstick-Ancillary (obtain specimen); Complete Time: 17:51 [facility] Administered Medications: 15:40 Drug: Zofran 4 mg Route: IVP; Site: right antecubital; ph 16:15 Follow up: Response: No adverse reaction; Nausea unchanged ph 15:42 Drug: morphine 4 mg Route: IVP; Site: right antecubital; ph 16:15 Follow up: Response: No adverse reaction; Pain is unchanged, physician notified; RASS: ph Alert and Calm (0) 17:20 Drug: Magnesium Sulfate 1 grams Route: IVPB; Infused Over: 1 hrs; Site: left hand; ph 18:10 Follow up: Response: No adverse reaction; IV Status: Completed infusion ph 17:40 Drug: Rocephin 1 grams Route: IV; Rate: per protocol; Site: left hand; ph 18:00 Follow up: Response: No adverse reaction; IV Status: Completed infusion ph 17:41 Drug: Cipro 500 mg Route: PO; ph 18:10 Follow up: Response: No adverse reaction ph 18:51 Not Given (Other Intervention Used): NS 0.9% 1000 ml IV at 1 bolus Per protocol; 1000 ph mL bolus Disposition: 05/03/19 17:04 Discharged to Home. Impression: Nausea, Chest pain, unspecified, Urinary tract infection, site not specified, Type 2 diabetes mellitus, Essential (primary) hypertension, Hypomagnesemia, Hypo-osmolality and hyponatremia. - Condition is Stable. - Discharge Instructions: Nonspecific Chest Pain, Type 2 Diabetes Mellitus, Diagnosis, Adult, Hypertension, Nausea, Adult, Urinary Tract Infection, Adult, Urinary Tract Infection, Adult, Kbqf-ni-Xgzw, Nonspecific Chest Pain, Ewhq-uu-Yhvs, Hypertension, Lhis-jk-Stnh, How to Take Your Blood Pressure, Epti-sp-Uvet, Aspirin and Your Heart, Type 2 Diabetes Mellitus, Diagnosis, Adult, Ncex-ra-Ftkf, Managing Your Hypertension. - Prescriptions for Zofran 4 mg Oral Tablet - take 1 tablet by ORAL route every 12 hours As needed; 20 tablet. promethazine 25 mg Oral Tablet - take 1 tablet by ORAL route every 6 hours As needed; 14 tablet. Cipro 250 mg Oral Tablet - take 1 tablet by ORAL route every 12 hours; 14 tablet. - Medication Reconciliation Form, Thank You Letter, Antibiotic Education, Prescription Opioid Use form. - Follow up: Kristian Torres; When: 2 - 3 days; Reason: Recheck today's complaints, Continuance of care, Re-evaluation by your physician. - Problem is new. - Symptoms have improved. Signatures: Dispatcher [employer] EDMS Hudson Cohn RN RN sg Anderson, Corey, MD MD cha Williams, Irene, RN RN iw Sara Yo RN RN ph Corrections: (The following items were deleted from the chart) 18:24 17:04 05/03/2019 17:04 Discharged to Home. Impression: Nausea; Chest pain, unspecified; shelia Urinary tract infection, site not specified; Type 2 diabetes mellitus; Essential (primary) hypertension. Condition is Stable. Discharge Instructions: Nonspecific Chest Pain, Type 2 Diabetes Mellitus, Diagnosis, Adult, Hypertension, Nausea, Adult, Urinary Tract Infection, Adult, Urinary Tract Infection, Adult, Dnnl-gf-Lgih, Nonspecific Chest Pain, Mycr-yy-Hods, Hypertension, Angs-oc-Ertn, How to Take Your Blood Pressure, Xgho-cq-Oclb, Aspirin and Your Heart, Type 2 Diabetes Mellitus, Diagnosis, Adult, Nooe-oa-Aifn, Managing Your Hypertension. Prescriptions for Zofran 4 mg Oral Tablet - take 1 tablet by ORAL route every 12 hours As needed; 20 tablet, promethazine 25 mg Oral Tablet - take 1 tablet by ORAL route every 6 hours As needed; 14 tablet, Cipro 250 mg Oral Tablet - take 1 tablet by ORAL route every 12 hours; 14 tablet. and Forms are Medication Reconciliation Form, Thank You Letter, Antibiotic Education, Prescription Opioid Use. Follow up: Kristian Torres; When: 2 - 3 days; Reason: Recheck today's complaints, Continuance of care, Re-evaluation by your physician. Problem is new. Symptoms have improved. shelia 18:52 18:24 05/03/2019 17:04 Discharged to Home. Impression: Nausea; Chest pain, unspecified; ph Urinary tract infection, site not specified; Type 2 diabetes mellitus; Essential (primary) hypertension; Hypomagnesemia; Hypo-osmolality and hyponatremia. Condition is Stable. Discharge Instructions: Nonspecific Chest Pain, Type 2 Diabetes Mellitus, Diagnosis, Adult, Hypertension, Nausea, Adult, Urinary Tract Infection, Adult, Urinary Tract Infection, Adult, Mhtk-sg-Itjq, Nonspecific Chest Pain, Dobo-qs-Jsxf, Hypertension, Wuxl-mx-Pzxu, How to Take Your Blood Pressure, Vmpg-bf-Nvgs, Aspirin and Your Heart, Type 2 Diabetes Mellitus, Diagnosis, Adult, Bhgj-qb-Wqri, Managing Your Hypertension. Prescriptions for Zofran 4 mg Oral Tablet - take 1 tablet by ORAL route every 12 hours As needed; 20 tablet, promethazine 25 mg Oral Tablet - take 1 tablet by ORAL route every 6 hours As needed; 14 tablet, Cipro 250 mg Oral Tablet - take 1 tablet by ORAL route every 12 hours; 14 tablet. and Forms are Medication Reconciliation Form, Thank You Letter, Antibiotic Education, Prescription Opioid Use. Follow up: Kristian Torres; When: 2 - 3 days; Reason: Recheck today's complaints, Continuance of care, Re-evaluation by your physician. Problem is new. Symptoms have improved. shelia
--- NOTE | 2019-05-03 17:05 | ER ---
Nurse's Notes [facility] Name: Linda Miramontes Age: 68 yrs Sex: Female : 1950 Arrival Date: 05/03/2019 Time: 14:01 Bed 14 Private MD: Kristian Torres V Diagnosis: Nausea;Chest pain, unspecified;Urinary tract infection, site not specified;Type 2 diabetes mellitus;Essential (primary) hypertension;Hypomagnesemia;Hypo-osmolality and hyponatremia Presentation: 05/03 14:14 Presenting complaint: Patient states: Autoimmune Hepatitis and Lupus, RA, and has had sg vomiting for several days, has had problems with this for several years, like since the . Transition of care: patient was not received from another setting of care. Onset of symptoms was May 03, 2019. Risk Assessment: Do you want to hurt yourself or someone else? Patient reports no desire to harm self or others. Initial Sepsis Screen: Does the patient meet any 2 criteria? No. Patient's initial sepsis screen is negative. Does the patient have a suspected source of infection? No. Patient's initial sepsis screen is negative. Care prior to arrival: None. 14:14 Method Of Arrival: Ambulatory sg 14:14 Acuity: JOBY 3 sg Historical: - Allergies: 14:07 Bactrim (Facial Swelling); sg 14:07 Codeine; sg - PMHx: 14:07 Diabetes - NIDDM; Hepatitis; Hypertension; Lupus; Polio; Sepsis; sg - PSHx: 14:07 Cholecystectomy; rotator cuff; shoulder; Knee surgery; Hysterectomy; sg - Immunization history:: Adult Immunizations unknown. - Family history:: not pertinent. - Ebola Screening: : No symptoms or risks identified at this time. - Social history:: Smoking status: Patient/guardian denies using tobacco. Screenin:45 Abuse screen: Denies threats or abuse. Denies injuries from another. Nutritional ph screening: No deficits noted. Tuberculosis screening: No symptoms or risk factors identified. Fall Risk None identified. Assessment: 15:15 General: Appears in no apparent distress. comfortable, well groomed, Behavior is calm, ph cooperative, appropriate for age, Denies fever. Pain: Complains of pain in xyphoid area Pain radiates to mid-sternal area. Neuro: Level of Consciousness is awake, alert, obeys commands, Oriented to person, place, time, situation, Reports dizziness, Denies weakness blurred vision headache. Cardiovascular: Capillary refill < 3 seconds in bilateral fingers Patient's skin is warm and dry. Cardiovascular: Reports chest pain, nausea, Chest pain is located in epigastric area. Respiratory: Airway is patent Respiratory effort is even, unlabored, Respiratory pattern is regular, symmetrical, Denies cough, shortness of breath. GI: Abdomen is round non-distended, Reports nausea, Patient currently denies abdominal pain, diarrhea, vomiting. : Denies burning with urination, urinary frequency. Derm: Skin is intact, is healthy with good turgor, Skin is pink, warm \T\ dry. Musculoskeletal: Circulation, motion, and sensation intact. Range of motion: intact in all extremities. 16:30 Reassessment: Patient appears in no apparent distress at this time. Patient and/or ph family updated on plan of care and expected duration. Pain level reassessed. Patient is alert, oriented x 3, equal unlabored respirations, skin warm/dry/pink. 17:42 Reassessment: Patient appears in no apparent distress at this time. Patient and/or ph family updated on plan of care and expected duration. Pain level reassessed. Patient is alert, oriented x 3, equal unlabored respirations, skin warm/dry/pink. Pt reports that pain and nausea have improved, d/c pending results of re[eat cardiac enzymes. Vital Signs: 14:15 BP 164 / 72; Pulse 87; Resp 17; Temp 97.8; Pulse Ox 98% on R/A; sg 15:47 BP 145 / 70; Pulse 88; Resp 16; Temp 97.6(O); Pulse Ox 100% on R/A; mh5 17:09 BP 143 / 69; Pulse 89; Resp 17; Temp 97.8(O); Pulse Ox 100% on R/A; mh5 17:42 BP 137 / 70; Pulse 87; Resp 18; Temp 98.0; Pulse Ox 99% on R/A; ph 18:45 BP 140 / 72; Pulse 86; Resp 16; Temp 97.9; Pulse Ox 98% on R/A; ph ED Course: 14:01 Patient arrived in ED. am2 14:01 Kristian Torres MD is Private Physician. am2 14:12 Arm band placed on. sg 14:15 Triage completed. sg 14:25 EKG done, by chemical treatment plant technician. reviewed by Klaus Gil MD. tc 14:27 Klaus Gil MD is Attending Physician. shelia 14:37 Sara Yo, RN is Primary Nurse. ph 14:46 Patient has correct armband on for positive identification. Placed in gown. Bed in low ph position. Call light in reach. Side rails up X 1. Pulse ox on. NIBP on. 14:54 XRAY Chest (1 view) In Process Unspecified. EDMS 15:27 CT Stone Protocol In Process Unspecified. EDMS 15:28 CT Head Brain wo Cont In Process Unspecified. EDMS 15:30 Inserted saline lock: 20 gauge in right antecubital area, using aseptic technique. ph Blood collected. 17:00 Inserted saline lock: 24 gauge in left hand, using aseptic technique. ph 17:04 Kristian Torres MD is Referral Physician. shelia 17:46 No provider procedures requiring assistance completed. ph 18:50 IV discontinued, intact, bleeding controlled, No redness/swelling at site. Pressure ph dressing applied. Administered Medications: 15:40 Drug: Zofran 4 mg Route: IVP; Site: right antecubital; ph 16:15 Follow up: Response: No adverse reaction; Nausea unchanged ph 15:42 Drug: morphine 4 mg Route: IVP; Site: right antecubital; ph 16:15 Follow up: Response: No adverse reaction; Pain is unchanged, physician notified; RASS: ph Alert and Calm (0) 17:20 Drug: Magnesium Sulfate 1 grams Route: IVPB; Infused Over: 1 hrs; Site: left hand; ph 18:10 Follow up: Response: No adverse reaction; IV Status: Completed infusion ph 17:40 Drug: Rocephin 1 grams Route: IV; Rate: per protocol; Site: left hand; ph 18:00 Follow up: Response: No adverse reaction; IV Status: Completed infusion ph 17:41 Drug: Cipro 500 mg Route: PO; ph 18:10 Follow up: Response: No adverse reaction ph 18:51 Not Given (Other Intervention Used): NS 0.9% 1000 ml IV at 1 bolus Per protocol; 1000 ph mL bolus Outcome: 17:04 Discharge ordered by . hselia 18:52 Patient left the ED. ph 18:52 Discharged to home ambulatory. ph 18:52 Condition: good 18:52 Discharge instructions given to patient, Instructed on discharge instructions, follow up and referral plans. medication usage, Demonstrated understanding of instructions, follow-up care, medications, Prescriptions given X 3. Signatures: Dispatcher [employer] EDHudson Aviles RN RN sg Anderson, Corey, MD MD cha Callis, Tiffany, crew mess attendant EKG Sara Garcia RN RN [place] [id number] [facility]
[2019-05-03 17:07] LABS: Urine Blood TRACE (NEG); Urine Glucose NEGATIVE (NEG); Urine Protein NEGATIVE (NEG)
--- NOTE | 2019-05-03 17:11 | EKG ---
Test Date: 2019-05-03 Test Time: 14:12:02 Label Coder: BAL MEASUREMENT RESULTS: Intervals: Rate: 70 [place]: 164 QRSD: 82 QT: 416 QTc: 449 [place]: P: 63 [place]: 164 QRS: 54 T: 55 INTERPRETIVE STATEMENTS: Normal sinus rhythm Normal ECG Compared to ECG 10/26/2018 14:59:57 No significant changes Electronically Signed On 05-03-19 17:10:46 RIPSAW OPERATOR by Rodger Betancur
[2019-05-03] MEDS ORDERED: MAGNESIUM OXIDE 400 MG TAB ONE (17:18)
[2019-05-03] MEDS ORDERED: CEFTRIAXONE/SWI 1gm 1 GM/10 ML SYR ONE (17:18)
[2019-05-03 19:34] VITALS: BP 137/70; TEMP 98; O2SAT 99
== END 2019-05-03 18:52 | disposition home or self-care (01) ==
LOC: ER 13:59
DX: N39.0 Urinary tract infection, site not specified (principal); R07.9 Chest pain, unspecified; I10 Essential (primary) hypertension; E83.42 Hypomagnesemia; E87.1 Hypo-osmolality and hyponatremia; E11.9 Type 2 diabetes mellitus without complications; Z88.1 Allergy status to other antibiotic agents; Z88.5 Allergy status to narcotic agent
CPT/HCPCS: 96365; 93005; 87088; 85025; 87086; 80048; 36415; 83735; 85610; 80076; 83605; 81003; 84484 ×2; 83690; 84145; 83880; 70450; 76377; 74176; 71045; 96375; 99284; J2550; J0696; J2405

== ENCOUNTER 2020-10-03 11:59 | Emergency (ER) | payer OTHER ==
[2020-10-03 13:33] LABS: Absolute Lymphocytes (CBC) 0.3 K/uL (0.7-4.9); Basophils % 0.5 % (0-1.3); Lymphocytes % 4.7 % (15.3-44.8); MPV 7.9 fL (7.6-11.3); RBC Red Blood Cell Count 4.36 M/uL (3.86-4.86)
[2020-10-03 14:02] LABS: ALT/SGPT 53 U/L (12-78); AST/SGOT 57 U/L (15-37); Albumin 3.1 g/dL (3.4-5.0); Alkaline Phosphatase 83 U/L (45-117); BUN Blood Urea Nitrogen 7 mg/dL (7-18); Bicarbonate 25 mmol/L (21-32); Bilirubin Direct 0.1 mg/dL (0-0.2); Bilirubin Total 0.4 mg/dL (0.2-1.0); Glucose Level 137 mg/dL (74-106); Lipase 114 U/L (73-393); Potassium 3.8 mmol/L (3.5-5.1); Sodium Level 126 mmol/L (136-145)
[2020-10-03] MEDS ORDERED: NA CHLORIDE 0.9% 500 ML ONE (14:30)
[2020-10-03] MEDS ORDERED: PROMETH/COD 6.25/10MG SYRUP 5ML ONE (14:30)
[2020-10-03 14:56] LABS: Blood Morphology Comment NOT SEEN (NOT SEEN); Platelet Estimate ADEQ; White Blood Cell Scan OK (OK)
--- NOTE | 2020-10-03 15:51 | EDPHYS ---
Physician Documentation [facility] Name: Linda Miramontes Age: 69 yrs Sex: Female : 1950 Arrival Date: 10/03/2020 Time: 12:03 Bed 16 Private MD: ED Physician Mo Egan HPI: 10/03 17:12 This 69 yrs old Female presents to ER via Ambulatory with complaints of kdr Diarrhea. 17:12 The patient presents to the emergency department with diarrhea, that is intermittent. kdr Onset: The symptoms/episode began/occurred at an unknown time. This is a chronic problem that is made worse by coughing. Possible causes: coughing. The symptoms are aggravated by coughing The symptoms are alleviated by nothing. Associated signs and symptoms: Pertinent positives: diarrhea, Pertinent negatives: abdominal pain, anorexia, belching, constipation, dysuria, fever, hematuria. Severity of symptoms: At their worst the symptoms were mild in the emergency department the symptoms are unchanged. The patient has experienced similar episodes in the past. The patient has not recently seen a physician. Historical: - Allergies: 12:19 Bactrim (Facial Swelling); kg 12:19 Codeine; kg - PMHx: 12:19 Diabetes - NIDDM; Hepatitis; Hypertension; Lupus; Polio; Sepsis; Pneumonia; Sjogrenes; kg Raynauds; Migraines; Cirrhosis; - PSHx: 12:19 Right knee replacement; Left shoulder; Cholecystectomy; kg - Immunization history:: Adult Immunizations not up to date, Client reports receiving the 2nd dose of the Covid vaccine. - Social history:: Smoking status: Patient denies any tobacco usage or history of. ROS: 17:12 Constitutional: Negative for fever, chills, and weight loss, Eyes: Negative for injury, kdr pain, redness, and discharge, Neck: Negative for injury, pain, and swelling, Cardiovascular: Negative for chest pain, palpitations, and edema, Respiratory: Negative for shortness of breath, cough, wheezing, and pleuritic chest pain, Back: Negative for injury and pain, : Negative for injury, bleeding, discharge, and swelling, MS/Extremity: Negative for injury and deformity, Skin: Negative for injury, rash, and discoloration, Neuro: Negative for headache, weakness, numbness, tingling, and seizure activity. Psych: Negative for depression, anxiety, suicide ideation, homicidal ideation, and hallucinations, Allergy/Immunology: Negative for hives, rash, and allergies, Endocrine: Negative for neck swelling, polydipsia, polyuria, polyphagia, and marked weight changes, Hematologic/Lymphatic: Negative for swollen nodes, abnormal bleeding, and unusual bruising. 17:12 Abdomen/GI: Positive for nausea, diarrhea, Negative for diarrhea, constipation, abdominal cramps, abdominal distension, anorexia, black/tarry stool, rectal pain, rectal bleeding, bowel incontinence. Exam: 17:12 Constitutional: This is a well developed, well nourished patient who is awake, alert, kdr and in no acute distress. Head/Face: Normocephalic, atraumatic. Eyes: Pupils equal round and reactive to light, extra-ocular motions intact. Lids and lashes normal. Conjunctiva and sclera are non-icteric and not injected. Cornea within normal limits. Periorbital areas with no swelling, redness, or edema. Neck: Trachea midline, no thyromegaly or masses palpated, and no cervical lymphadenopathy. Supple, full range of motion without nuchal rigidity, or vertebral point tenderness. No Meningismus. Chest/axilla: Normal chest wall appearance and motion. Nontender with no deformity. No lesions are appreciated. Cardiovascular: Regular rate and rhythm with a normal S1 and S2. No gallops, murmurs, or rubs. Normal PMI, no JVD. No pulse deficits. Respiratory: Lungs have equal breath sounds bilaterally, clear to auscultation and percussion. No rales, rhonchi or wheezes noted. No increased work of breathing, no retractions or nasal flaring. Abdomen/GI: Soft, non-tender, with normal bowel sounds. No distension or tympany. No guarding or rebound. No evidence of tenderness throughout. Back: No spinal tenderness. No costovertebral tenderness. Full range of motion. Skin: Warm, dry with normal turgor. Normal color with no rashes, no lesions, and no evidence of cellulitis. MS/ Extremity: Pulses equal, no cyanosis. Neurovascular intact. Full, normal range of motion. Neuro: Awake and alert, GCS 15, oriented to person, place, time, and situation. Cranial nerves II-XII grossly intact. Motor strength 5/5 in all extremities. Sensory grossly intact. Cerebellar exam normal. Normal gait. Psych: Awake, alert, with orientation to person, place and time. Behavior, mood, and affect are within normal limits. Vital Signs: 12:14 BP 136 / 75; Pulse 84; Resp 20; Temp 98.3(O); Pulse Ox 99% ; Height 5 ft. 6 in. (167.64 kg cm); Pain 9/10; MDM: 15:51 Patient medically screened. kdr 17:12 Data reviewed: vital signs, nurses notes, lab test result(s), radiologic studies. kdr Counseling: I had a detailed discussion with the patient and/or guardian regarding: the historical points, exam findings, and any diagnostic results supporting the discharge/admit diagnosis, lab results, the need for outpatient follow up. Response to treatment: the patient's symptoms have markedly improved after treatment. 10/03 12:56 Order name: Glucose, Ancillary Testing; Complete Time: 13:11 [facility] 10/03 13:10 Order name: Basic Metabolic Panel; Complete Time: 14:10 [facility] 10/03 13:10 Order name: CBC with Diff; Complete Time: 15:49 [facility] 10/03 13:10 Order name: Hepatic Function; Complete Time: 14:10 [facility] 10/03 13:10 Order name: Lipase; Complete Time: 14:10 [facility] 10/03 13:35 Order name: CBC Smear Scan; Complete Time: 15:49 [facility] 10/03 13:10 Order name: IV Saline Lock; Complete Time: 13:41 [facility] 10/03 13:10 Order name: Labs collected and sent; Complete Time: 13:41 kdr Administered Medications: 14:12 Drug: NS 0.9% 500 ml Route: IV; Rate: bolus; Site: right antecubital; tr6 15:01 Follow up: Response: No adverse reaction; IV Intake: 500ml tr6 14:13 Drug: Phenergan (promethazine) -Codeine Liquid (6.25mg - 10mg / 5mL) 10 ml Route: PO; tr6 15:01 Follow up: Response: No adverse reaction tr6 Disposition: 10/03/20 15:51 Discharged to Home. Impression: Diarrhea, unspecified, Hypo-osmolality and hyponatremia - chronic. - Condition is Stable. - Discharge Instructions: Hyponatremia, Diarrhea, Adult, [id number]. - Prescriptions for Lomotil 2.5- 0.025 mg Oral Tablet - take 2 tablet by ORAL route once daily As needed; 20 tablet. - Medication Reconciliation Form, Thank You Letter form. - Follow up: Private Physician; When: 2 - 3 days; Reason: If symptoms return, Further diagnostic work-up, Recheck today's complaints, Continuance of care, Re-evaluation by your physician. - Problem is new. - Symptoms have improved. Signatures: Dispatcher [employer] EDMS Mo Egan MD MD kdr Ada Rivero RN RN Neva Key RN RN tr6 Edilma España RN RN kg Corrections: (The following items were deleted from the chart) 16:30 15:51 10/03/2020 15:51 Discharged to Home. Impression: Diarrhea, unspecified; hb Hypo-osmolality and hyponatremia - chronic. Condition is Stable. Forms are Medication Reconciliation Form, Thank You Letter, Antibiotic Education, Prescription Opioid Use. Follow up: Private Physician; When: 2 - 3 days; Reason: If symptoms return, Further diagnostic work-up, Recheck today's complaints, Continuance of care, Re-evaluation by your physician. Problem is new. Symptoms have improved. kdr
--- NOTE | 2020-10-03 15:51 | ER ---
Nurse's Notes [facility] Name: Linda Miramontes Age: 69 yrs Sex: Female : 1950 Arrival Date: 10/03/2020 Time: 12:03 Bed 16 Private MD: Diagnosis: Diarrhea, unspecified;Hypo-osmolality and hyponatremia-chronic Presentation: 10/03 12:14 Chief complaint: Patient states: Diarrhea and coughing starting yesterday 10/02 at kg 16:00. Coronavirus screen: Client denies travel out of the [place] in the last 14 days. At this time, unable to obtain information related to travel outside the [place] Ebola Screen: Patient negative for fever greater than or equal to 101.5 degrees Fahrenheit, and additional compatible Ebola Virus Disease symptoms Patient denies exposure to infectious person. Patient denies travel to an Ebola-affected area in the 21 days before illness onset. Initial Sepsis Screen: Does the patient meet any 2 criteria? No. Patient's initial sepsis screen is negative. Does the patient have a suspected source of infection? No. Patient's initial sepsis screen is negative. Risk Assessment: Do you want to hurt yourself or someone else? Patient reports no desire to harm self or others. Onset of symptoms was October 02, 2020 at 16:00. 12:14 Method Of Arrival: Ambulatory kg 12:14 Acuity: JOBY 4 kg 12:14 Acuity: JOBY 3 kg Triage Assessment: 12:19 General: Appears in no apparent distress. Behavior is calm, cooperative, appropriate kg for age. Pain: Pain: Complains of pain in Generalized. Historical: - Allergies: 12:19 Bactrim (Facial Swelling); kg 12:19 Codeine; kg - PMHx: 12:19 Diabetes - NIDDM; Hepatitis; Hypertension; Lupus; Polio; Sepsis; Pneumonia; Sjogrenes; kg Raynauds; Migraines; Cirrhosis; - PSHx: 12:19 Right knee replacement; Left shoulder; Cholecystectomy; kg - Immunization history:: Adult Immunizations not up to date, Client reports receiving the 2nd dose of the Covid vaccine. - Social history:: Smoking status: Patient denies any tobacco usage or history of. Assessment: 12:46 Reassessment: pt states that she has a "very bad cough that causes her to have tr6 diarrhea". pt would like her sugar checked bc she feels like her sugar is dropping. Vital Signs: 12:14 BP 136 / 75; Pulse 84; Resp 20; Temp 98.3(O); Pulse Ox 99% ; Height 5 ft. 6 in. (167.64 kg cm); Pain 9/10; ED Course: 12:03 Patient arrived in ED. as 12:16 Triage completed. kg 12:40 Mo Egan MD is Attending Physician. kdr 12:45 Neva Key, RN is Primary Nurse. tr6 Administered Medications: 14:12 Drug: NS 0.9% 500 ml Route: IV; Rate: bolus; Site: right antecubital; tr6 15:01 Follow up: Response: No adverse reaction; IV Intake: 500ml tr6 14:13 Drug: Phenergan (promethazine) -Codeine Liquid (6.25mg - 10mg / 5mL) 10 ml Route: PO; tr6 15:01 Follow up: Response: No adverse reaction tr6 Intake: 15:01 IV: 500ml; Total: 500ml. tr6 Outcome: 15:51 Discharge ordered by . kdr 16:30 Patient left the ED. hb Signatures: Mo Egan MD MD kdr Safia Brandon Heather, RN RN Neva Key, ASHWIN RN tr6 Edilma España RN RN kg
[2020-10-03 17:35] VITALS: BP 136/75; TEMP 98.3; O2SAT 99
== END 2020-10-03 16:30 | disposition home or self-care (01) ==
LOC: ER 11:59
DX: R19.7 Diarrhea, unspecified (principal); E87.1 Hypo-osmolality and hyponatremia; E11.9 Type 2 diabetes mellitus without complications; I10 Essential (primary) hypertension; M32.9 Systemic lupus erythematosus, unspecified; M35.00 Sjogren syndrome, unspecified; K74.60 Unspecified cirrhosis of liver; I73.00 Raynaud's syndrome without gangrene; Z96.651 Presence of right artificial knee joint
CPT/HCPCS: 85025; 80048; 36415; 82947; 80076; 83690; 99282; J7040

== ENCOUNTER 2020-10-18 10:20 | Emergency (ER) | payer OTHER ==
--- OUTSIDE RECORDS SUMMARY | 2020-10-18 10:28 | XMS REPORT | Continuity of Care Document ---
:1950 Author Organization [facility] t Address [address] [place] [address] Care Team Providers Name Role Phone Shailesh Torres Primary Care Physician David CHRISTOPHER Attending Clinician Unavailable Paula Joshi MD Attending Clinician Brad VALERIO Attending Clinician Unavailable MD Paula JOSHI Attending Clinician Unavailable Brendan CHRISTOPHER Attending Clinician Unavailable Mile aBe MD Attending Clinician Christian MARBLE MECHANIC HELPER, J Attending Clinician Lab, Fam Pob I Attending Clinician Unavailable Gabi Coello MD Attending Clinician Julio Azar MD Attending Clinician Annia Dumont NP Attending Clinician Shaila Kee DO Attending Clinician MD Mile BAE Attending Clinician Unavailable Filomena VALERIO Attending Clinician Unavailable Isiah Jo NP Attending Clinician Lucinda Carrera MD Attending Clinician Evelia Kee DO Attending Clinician Hi Chandler Attending Clinician Fely WARREN Attending Clinician [facility] Attending Clinician Unavailable Barron RONDON Attending Clinician Unavailable KARMEN CAPPS Attending Clinician Unavailable Jules Taylor Attending Clinician Hi JOSHI Attending Clinician Unavailable MD Paula JOSHI Admitting Clinician Unavailable CATALINO Admitting Clinician Unavailable MD Mile BAE Admitting Clinician Unavailable Jules Taylor Admitting Clinician Payers Payer Name Policy Type Policy Effective Date Expiration Date Sour ce Number AETNA MEDICAREAETNA [id number] 2013 [place] MED[place] H[place]/PPO 00:00:00 Methodis t [id number] -PresentHMO Problems Condition Condition Condition Status Onset Resolution Last Treating Co mments Source Name Details Category Date Date Treatment Clinician Date Intractabl Intractabl Disease Active 2018-04 Overview : [place] migraine e migraine 06-22 Formattin Methodi without without 00:00: g of this st aura and aura and 00 note without without might be status status different migrainosu migrainosu from the s s original. As diagnosed by Dr. Antonio Capps. Raynaud's Raynaud's Disease Active 2018-04 [facility] disease disease -28 Methodi without without 00:00: st gangrene gangrene 00 Insomnia Insomnia Disease Active 2018-04 Overview: [place] due to due to 06-22 Form[place]in Methodi medical medical 00:00: g of this st condition condition 00 note might be different from the original. In addition to being kept awake and being awakened from sleep by pain I suspect that her anger and depressio n are also playing a role. Crohn's Crohn's Disease Active 2019 [place] disease of disease of 6-10 Me th[place] both small both small 00:00: st and large and large 00 intestine intestine without without complicati complicati on on Hx of Hx of Disease Active [place] cholecyste cholecyste 6-10 Me th[facility] ctomy ctomy 00:00: st 00 Immunity Immunity Disease [facility] N/A Diagnosis Active 2017-01-07 Mem oria 01-06 11:27:00 l N/A 00:00: [place] 00 Active 01/06/2017 [facility] M17.11 Diagnosis Active 2017-01-17 Mem oria 14 22:05:00 l M17.11 00:00: [place] 00 Active 01/06/2017 [facility] RIGHT KNEE Diagnosis Active 2017-01-07 Memoria DJD 10-12 13:22:00 l RIGHT 00:00: [place] KNEE DJD 00 Active 10/12/2016 [facility] S83.281A Diagnosis Active 2015-05-30 M emoria RIGHT KNEE 05-27 06:38:00 l TORN S83.281A 00:00: Jonathan n MENISCUS RIGHT KNEE 00 TORN MENISCUS Active 05/27/2015 [facility] LEFT Diagnosis Active 2014-042015-02-28 [facility] oria SHOULDER 0 06:45:00 l ROTATOR LEFT 00:00: [place] CUFF TEAR SHOULDER 00 ROTATOR CUFF TEAR Active 02/19/2015 [facility] Crohn's Crohn's Disease Active Last [facility] disease disease 06-11 Assessmen Roc - without without 00:00: t & Plan: Medic al complicati complicati 00 Treated C enter on on with Remicade for 5 years and stopped earlier this year. Will need to monitor closely for recurrent symptoms. She must also follow up with primary GI Dr. Stoddard. We will request records from his office. Rheumatoid Rheumatoid Disease Active Last C [facility] arthritis arthritis 09-28 Assessmen Ivelisse carlson - with with 00:00: t & Plan: Medical negative negative [address] rheumatoid rheumatoid rheumatoi factor factor d flare. She was previousl y treated with methotrex ate but it was stopped due to elevated liver tests. She is only on low dose imuran 50 BID right now. She follows with Dr. Yao (Rheumato logy). Hypertensi Problem Resolve 2017-01-15 Memoria ve d 01:52:57 l disorder, [place] systemic Hypertensi arterial ve (disorder) disorder, systemic arterial (disorder) Resolved Problem 01/15/2017 [facility] Neuropathy Problem Resolve 2017-01-15 Memoria (disorder) d 01:52:57 l [place] Neuropathy (disorder) Resolved Problem 01/15/2017 [facility] Diverticul Problem Active 2017-01-15 M emoria itis 01:52:57 l (disorder) Jonathan n Diverticul itis (disorder) Active Problem 01/15/2017 [facility] Inflammato Problem Active 2017-01-15 M emoria ry disease 01:52:57 l of liver Martinez (disorder) 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 01/15/2017 auto immune [facility] Motility, Problem Active 2017-01-15 Me moria function 01:52:57 l (observabl Jonathan n e entity) Motility, function (observabl e entity) Active Problem 01/15/2017 [facility] Rheumatoid Problem Active 2017-01-15 M emoria arthritis 01:52:57 l (disorder) Jonathan n Rheumatoid arthritis (disorder) Active Problem 01/15/2017 [facility] Osteoarthr Problem Active 2017-01-15 M emoria itis 01:52:57 l (disorder) Jonathan n Osteoarthr itis (disorder) Active Problem 01/15/2017 [facility] UNILATERAL Diagnosis Active 2017-01-17 Memoria PRIMARY 22:05:00 l OSTEOARTHR Jonathan n ITIS, UNILATERAL RIGHT PRIMARY OSTEOARTHR ITIS, RIGHT Active [facility] Anxiety Problem Resolve 2017-01-15 Mem oria (finding) d 01:52:57 l Anxiety [place] (finding) Resolved Problem 01/15/2017 [facility] Diabetes Diabetes Disease Active [place] [facility] st 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 Methodi st Osteoarthr Osteoarthr Disease Active [place] itis of itis of Methodi spine spine st without without myelopathy myelopathy or or radiculopa radiculopa thy, thy, lumbar lumbar region region Autoimmune Autoimmune Disease Active [place] hepatitis hepatitis [facility] [facility] Rheumatoid Rheumatoid Disease Active [place] arthritis arthritis [place] of of st multiple multiple sites sites without without rheumatoid rheumatoid factor factor Anxiety Anxiety Disease Active [place] and and Methodi depression depression st GERD GERD Disease Active [place] (gastroeso (gastroeso Me thodi phageal phageal st reflux reflux disease) disease) Allergies, Adverse Reactions, Alerts Allergy Allergy Status Severity Reaction(s) Onset Inactive Treating Comm ents Source Name Type Date Date Clinician Ciproflo Propensi Active GI 2015-04 Nausea [place] xacin ty to Intolerance 0-20 Metho di adverse 00:00: st reaction 00 s to drug Codeine Propensi Active Itching 2015-04 Chest [place] ty to 0-20 pain Methodi adverse 00:00: st reaction 00 s to drug Sulfamet Propensi Active Palpitations [place] hoxazole ty to 7-05 Methodi -Trimeth adverse 00:00: st oprim reaction 00 s to drug Sulfamet Drug Active Other (See Shaking [facility] hoxazole Allergy Comments) [facility] - -Trimeth 00:00: Medical oprim 00 Center Ciproflo Drug Active Other (See Bleeding [facility] xacin Allergy Comments) [facility] - [facility] Center Codeine Drug Active Other (See Chest [facility] 5 pain [facility] - 00:[facility]: Medical 00 [place] Morphine Drug Active Itching [facility] Sulfate Allergy 09-07 [facility] - 00:[facility]: Medical 00 [place] Morphine Propensi Active Itching [place] Sulfate ty to 5-16 Methodi adverse 00:00: st reaction 00 s to drug Bactrim Bactrim Active Memoria l [place] codeine codeine Active Memoria sulfate sulfate l [place] NKFA NKFA Active Memoria l [place] Family History Family Member Diagnosis Comments Start Date Stop Date Source Paternal aunt Cancer [facility] Natural father No Known Problem [facility] Maternal aunt Cancer [facility] Natural mother Gout [facility] Natural mother Hypertension [facility] Other Breast cancer [facility] Other Lung cancer [place] [facility] Other Stomach cancer [facility] thodist Other Throat cancer [facility] Family member Colon cancer [facility] ethodist Social History Social Habit Start Date Stop Date Quantity Comments Source Sex Assigned At [facility] Exposure to Not sure [place] Metho dist SARS-CoV-2 (event) Tobacco use and 2020-10-06 2020-10-06 Never used [facility] ethodist exposure 00:00:00 00:00:00 Alcohol intake 2020-10-06 2020-10-06 Ex-drinker [facility] thodist 00:00:00 00:00:00 (finding) Alcohol Comment 2020-05-22 2020-05-22 1-2 year Jaxon Carvalho ethodist 00:00:00 00:00:00 Social History 2017-01-10 2017-01-10 [facility] Jerel vickers 17:39:08 17:39:08 Smoking Status Start Date Stop Date Source Never smoker Jaxon Sobiais anat Medications Ordered Filled Start Stop Current Ordering Indication Dosage Frequency Signature Comments Components Source Medication Medication Date Date Medication? Clinician (SIG) Name Name azaTHIOprin 2021- Yes Other 50mg Q.5D Take 1 [place] (IMURAN) 5-21 05-22 systemic tablet (50 Methodi 50 mg 00:00: 23:59 lupus mg total) st tablet 00 :00 erythematos by mouth 2 us with (two) other organ times a involvement day. ([facility]) vitamin B Yes Take by [place] complex (B 5-13 mouth. Methodi COMPLEX 13:07: st ORAL) 08 turmeric Yes [place] (CURCUMIN 5-13 Methodi MISC) 13:07: st 08 losartan Yes 100mg QD Take 100 [place] (COZAAR) 5-13 mg by Methodi 100 MG 13:04: mouth st tablet 24 nightly. metFORMIN Yes 500mg QD Take 500 [address] (GLUCOPHAGE 5-13 mg by Methodi ) 500 MG 13:04: mouth st tablet 24 nightly. zolpidem Yes 12.5mg Take 12.5 [place] (AMBIEN) 10 5-13 mg by Methodi mg tablet 13:04: mouth. st 24 escitalopra Yes 40mg QD Take 40 mg [place] m (LEXAPRO) 5-13 by mouth Meth [place] 20 MG 13:04: nightly. st tablet 24 levocetiriz Yes 1{tbl} QD Take 1 [place] ine 5-13 tablet by Methodi dihydrochlo 13:04: mouth st ride (XYZAL 24 every ORAL) morning. nortriptyli Yes 30mg QD Take 30 mg [place] ne 5-13 by mouth Methodi (PAMELOR) 13:04: nightly. st 10 MG 24 capsule ARIPiprazol Yes 10mg QD Take 10 mg [place] e (ABILIFY) 5-13 by mouth Meth [place] 10 MG 13:04: nightly. st tablet 24 tizanidine Yes 1{tbl} [id number] Take 1 [place] HCl 5-13 [id number] tablet by [place] (TIZANIDINE 13:04: 3D mouth [address] ORAL) 24 (three) times a day. 4 mg dextroamphe Yes Take by Patrick ston tamine/amph 5-13 mouth. Method i etamine 13:03: st (ADDERALL 17 ORAL) ondansetron Yes TAKE 1 [place] (ZOFRAN) 4 5-11 TABLET BY Meth [place] MG tablet 00:00: MOUTH st 00 EVERY 8 HOURS NEEDED FOR NAUSEA/VOM IT ondansetron 2020- No TAKE 1 [place] (ZOFRAN) 4 3-18 05-11 TABLET BY Met hodi MG tablet 00:00: 00:[address] 00 :00 EVERY 8 HOURS NEEDED FOR NAUSEA/VOM IT azaTHIOprin 2020- No Other 50mg Q.5D Take 1 [place] e (IMURAN) 2-22 05-21 systemic tablet (50 Methodi 50 mg 00:00: 00:00 lupus mg total) st tablet 00 :00 erythematos by mouth 2 us with (two) other organ times a involvement day. ([facility]) ranitidine 2020- No 300mg QD Take 300 [place] (ZANTAC) 2-03 02-03 mg by Methodi 150 MG 07:15: 00:[address] tablet 16 :00 daily. sodium,pota 2020- No 1{bottl Take 1 [place] ssium,mag 05-2329 e} Bottle by [place] sulfates 00:00: 23:[address] (Suprep 00 :00 for 1 Bowel Prep dose. Kit) Drink 1 17.5-3.13-1 bottle as .6 gram directed recon soln for dose 1 and 1 bottle as directed for dose 2. ondansetron 2020- No TAKE 1 [place] (ZOFRAN) 4 1-28 03-18 TABLET BY Met hodi MG tablet 00:00: 00:[address] 00 :00 EVERY 8 HOURS NEEDED FOR NAUSEA/VOM IT ondansetron 2020- No TAKE 1 [place] (ZOFRAN) 4 04-30 TABLET BY Met hodi MG tablet 00:00: 00:[address] 00 :00 EVERY 8 HOURS NEEDED FOR NAUSEA/VOM IT Benlysta 2019-04 Yes inject 1 [place] 200 mg/mL 06-22 pen Methodi auto-inject 00:00: (200mg) st or 00 subcutaneo usly every week Benlysta 2019-04- No inject 1 [place] 200 mg/mL 06-22 pen Methodi auto-inject 00:00: 00:00 (200mg) st or 00 :00 subcutaneo usly every week Benlysta 2019-04- No inject 1 [place] 200 mg/mL 06-22 pen Methodi auto-inject 00:00: 00:00 (200mg) st or 00 :00 subcutaneo usly every week cevimeline 2019-04- No Raynaud's 30mg Q.[id number] Take 1 [place] (EVOXAC) 30 06-02 disease [id number] capsule Methodi mg capsule 00:00: 23:59 without 3D (30 mg s t 00 :00 gangrene total) by mouth 3 (three) times a day. ondansetron 2020- No TAKE 1 [place] (ZOFRAN) 4 01-03 TABLET BY Met hodi MG tablet 00:00: 00:[address] 00 :00 EVERY 8 HOURS NEEDED FOR NAUSEA/VOM IT omeprazole Yes 40mg Q.5D Take 1 [place] (PriLOSEC) 12-27 capsule Method i 40 MG 00:00: ([address] capsule 00 total) by mouth 2 (two) times a day. sodium,pota 2019- No 1{bottl Take 1 [place] ssium,mag 12-13 08-21 e} Bottle by [place] sulfates 00:00: 23:[address] (Suprep 00 :00 for 1 Bowel Prep dose. Kit) 17.5-3.13-1 .6 gram recon soln azaTHIOprin 2020- No Other 50mg Q.5D Take 1 [place] (IMURAN) 706-16 systemic tablet (50 Methodi 50 mg 00:00: 00:00 lupus mg total) st tablet 00 :00 erythematos by mouth 2 us with (two) other organ times a involvement day. ([facility]) cevimeline 2019- No 30mg Q.[id number] Take 1 [place] (EVOXAC) 30 5- 12 [id number] capsule Methodi mg capsule 00:00: 00:00 3D ([address] 00 :00 total) by mouth 3 (three) times a day. azaTHIOprin 2018-04- No Other 50mg Q.5D Take 1 Romeo ajton e (IMURAN) 05-30 systemic tablet (50 Methodi 50 mg 00:00: 00:00 lupus mg total) st tablet 00 :00 erythematos by mouth 2 us with (two) other organ times a involvement day. ([facility]) BOTOX 100 2018-04 Yes Every 3 [place] unit recon 1-25 months for Met hodi soln 00:00: headaches st 00 omeprazole 2018-04- No 40mg Q.5D Take 1 [place] (PriLOSEC) 05-13- capsule Metho di 40 MG 00:00: 00:00 ([address] capsule 00 :00 total) by mouth 2 (two) times a day. colestipol 2018-04 Yes as needed. H janeen (COLESTID) 1-11 Methodi 1 gram 00:00: st tablet 00 lidocaine 2020- No 1{patch Q.5W Place 1 H ousaravanan (LIDODERM) 06-21 } patch on Meth whit[place] 5 % 00:00: 00:[address] 00 :00 (two) times a week. cycloSPORIN Yes 1[drp] Q.5D [address] [facility] [facility] 2-14 (two) [facility] - (RESTASIS) 11:21: times Medica l 0.05 % 39 daily. Center ophthalmic emulsion zolpidem Yes 10mg Take [address] (AMBIEN) 10 2-14 by mouth Luke s - mg tablet 11:20: every Medical 34 night as Center needed. ranitidine Yes 75mg QD Take [address] (ZANTAC) 75 2-14 by mouth Luke s - MG tablet 11:20: nightly. Medi kasey 34 Pt unsure Center of dosage losartan Yes 25mg QD Take [address] (COZAAR) 25 2-14 by mouth Luke s - MG tablet 11:20: daily. Medica l 34 Center metFORMIN Yes 1000mg Take 1,[address] (GLUCOPHAGE 2-14 mg by [facility] - ) 500 MG 11:20: mouth 2 Medica l tablet 34 (two) Center times daily with breakfast and dinner . gabapentin Yes 100mg Q.[id number] Take [address] (NEURONTIN) 2-14 [id number] mg by L ukes - 100 MG 11:20: 3D mouth 3 Medical capsule 34 (three) Center times daily. nortriptyli Yes nortriptyl [facility] ne 2-14 ine 10 mg [facility] - (PAMELOR) 11:20: capsule Medic al 10 MG 34 Center capsule omeprazole Yes omeprazole C [facility] (PRILOSEC) 2-14 40 mg [facility] - 40 MG 11:20: capsule,de Medica l capsule 34 layed Center release pyridoxine, Yes 100mg QD Take [address] vitamin B6, 2-14 mg by [facility] - (VITAMIN 11:20: mouth Medical B-6) 100 MG 34 daily. Center tablet azaTHIOprin 2017-04 Yes Autoimmune 50mg Q.5D Take [address] e (IMURAN) 0-19 hepatitis tablet (50 [facility] - 50 mg 00:00: (HCC) mg total) Medica l tablet 00 by mouth 2 Center (two) times daily. metoclopram 2017-04 Yes 10mg Q.25D Take [address] dagmar HCl 0-19 tablet (10 [facility] - (REGLAN) 10 00:00: mg total) M edical MG tablet 00 by mouth 4 Cent er (four) times daily. furosemide Yes 40mg QD [address] (LASIX) 40 9-14 daily . [facility] - MG tablet 00:00: Medical 00 Center modafinil Yes 200mg QD 200 mg [facility] (PROVIGIL) 7-31 daily . [facility] - 200 MG 00:00: Medical tablet 00 Center potassium Yes 20meq QD Take [address] chloride SA 7-26 mEq by [facility] - (K-DUR,KLOR 00:00: mouth Medic al -CON) 20 00 daily . Center MEQ tablet inFLIXimab Yes 600mg [facility] (REMICADE) 1-19 [facility] - 600 mg in 13:30: Medical sodium 00 Center chloride 0.9% (NS) EXCEL 250 mL IVPB inFLIXimab 2016-[address] [facility] (REMICADE) 2-08 [facility] - 600 mg in 11:30: Medical sodium 00 Center chloride 0.9% (NS) EXCEL 250 mL IVPB Acetaminoph Yes 1 tab, PO, Memoria en 325 MG / 9-20 Q4H, PRN l Hydrocodone 15:07: for pain, [place] Bitartrate 00 X 14 day, 10 MG Oral # 84 tab, Tablet 0 [Douglas Refill(s), ] called to pharmacy Cephalexin Yes 500 mg = 1 M emoria 500 MG Oral 9-20 cap, PO, l Capsule 15:07: BID, X 10 Kelley nn [Keflex] 00 day, # 20 cap, 0 Refill(s), called to pharmacy 0.3 ML Yes 30 mg, Memoria Enoxaparin 9-20 SUB-Q, l sodium 100 15:07: Q12H, X 7 He rmann MG/ML 00 day, # 14 Prefilled syr, 0 Syringe Refill(s), [Lovenox] called to pharmacy escitalopra Yes 40 mg = 2 M emoria m 20 mg 9-20 tab, PO, l oral tablet 15:07: Bedtime, 0 [place] 00 Refill(s) cetirizine Yes 5 mg = 1 Mem oria 5 mg oral 9-20 tab, PO, l tablet 15:07: Daily, 0 [place] 00 Refill(s) Dilaudid No 0.2 mg, Memori a -19 Route: l 17:48: IVP, [place] 00 Q15Min, Dosing Weight 84.091, kg, PRN Pain Score 7-10, Start date: 01/11/17 12:48:00 CDT, Duration: 30 day, Stop date: 02/10/17 12:47:00 CDT Furosemide No Notes: Memor ia 9-19 (Same as: l 14:00: Lasix) May cause GI upset. Give with food or milk. Omeprazole No 40 mg, Memor ia 9- Route: PO, l 14:00: Daily, Dosing Weight 84.091, kg, Start date: 01/11/17 9:00:00 CDT, Duration: 30 day, Stop date: 02/09/17 9:00:00 CDT Zyrtec No 5 mg, Memoria 9 Route: PO, l 14:00: Daily, Dosing Weight 84.091, kg, Start date: 01/11/17 9:00:00 CDT, Duration: 30 day, Stop date: 02/09/17 9:00:00 CDT Provigil No Notes: Memoria 9-19 (Same l 14:00: as:Provigi l) Lovenox No Notes: Memoria 9-19 (Same as: l 13:00: Lovenox) Potassium No Notes: Memori a Chloride 01-11 (Same as: l 13:00: K-Dur 20) "Do Not Crush" With food and full glass of water Xanax No Notes: Memoria 9-19 With food l 02:45: or milk (Same as: Xanax) Lexapro No Notes: Memoria 9-19 (Same as: l 02:00: Lexapro) senna 8.6 No Notes: Memori a mg oral - (Same as: l tablet 02:00: Senokot) 00 Losartan No Notes: Memoria 9-19 (Same as: l 02:00: Cozaar) Zyrtec No Notes: Memoria 9-19 (Same As: l 02:00: Zyrtec) famotidine No Notes: Memor ia -19 (Same as: l 02:00: Pepcid) Protonix No Notes: Memoria 9-19 Tablet l 02:00: should not [place] 00 be chewed or crushed. (Same as: Protonix) zolpidem No Notes: Memoria - (Same As: l 01:43: Ambien) Sodium No 250 mL, Memoria Chloride 01-11 Route: l 0.9% IV 01:02: IVPB, Start date: 01/10/17 20:02:00 CDT, Duration: 30 day, Stop date: 02/09/17 20:01:00 CDT, PRN Line Flush BD Normal No Notes: Memori a Saline 01-11 (Same as: l Flush 01:02: BD [place] Posiflush) Docusate No Notes: Memoria Sodium 100 01-10 (Same as: l MG Oral 22:00: Colace) [place] Capsule 00 (Do Not [Colace] Crush) Alprazolam No Notes: Memor ia 0.5 MG Oral 01-10 With food l Tablet 22:00: or milk [place] [Xanax] 00 (Same as: Xanax) Hyoscyamine No Notes: Sunday tressa 01-10 (Same as: l 22:00: Levsin) Take 30 min before meal Metformin No Notes: Memori a hydrochlori 01-10 (Same as: l de 500 MG 22:00: Glucophage He rmann Oral Tablet 00 ) Take with meal Zantac No 150 mg, Memoria 18 Route: PO, l 22:00: BID, [place] 00 Dosing Weight 84.091, kg, Start date: 01/10/17 17:00:00 CDT, Duration: 30 day, Stop date: 02/09/17 9:00:00 CDT gabapentin No 100 mg, Sunday tressa 18 Route: PO, l 22:00: TID, [place] 00 Dosing Weight 84.091, kg, Start date: 01/10/17 17:00:00 CDT, Duration: 30 day, Stop date: 02/09/17 13:00:00 CDT Reglan No Notes: Memoria 9-18 (Same as: l 21:30: Reglan) [place] 00 Take 30 min before meals ceFAZolin No Notes: Memori a 01-10 Same as: l 21:00: Ancef [place] glucagon No 1 mg, Memoria 01-10 Route: IM, l 19:49: Drug form: [place] 00 PDR/INJ, PRN, PRN Blood Glucose Results, Start date: 01/10/17 14:49:00 CDT, Duration: 30 day, Stop date: 02/09/17 14:48:00 CDT Dextrose No 25 mL, Memoria 50% in 01-10 Route: l Water IV 19:48: IVP, Start Her mccurdy 00 date: 01/10/17 14:48:00 CDT, Duration: 30 day, Stop date: 02/09/17 14:47:00 CDT, PRN Blood Glucose Results Dextrose No 50 mL, Memoria 50% in 01-10 Route: l Water IV 19:47: IVP, Start Her mccurdy 00 date: 01/10/17 14:47:00 CDT, Duration: 30 day, Stop date: 02/09/17 14:46:00 CDT, PRN Blood Glucose Results Humalog No Notes: Memoria 01-10 Roll in l 19:46: palms of [place] 00 hands gently; Do not shake `vigorousl y. (Same as: Humalog ) "Single Patient Use Only " WASTE: F/P - Black; E - Municipal Trash Bin Stable for 28 days at room temperatur e. Expires in days from ____Date Humalog No Notes: Memoria 01-10 Roll in l 19:45: palms of [place] 00 hands gently; Do not shake `vigorousl y. (Same as: Humalog ) "Single Patient Use Only " WASTE: F/P - Black; E - Municipal Trash Bin Stable for 28 days at room temperatur e. Expires in days from ____Date Humalog No Notes: Memoria 01-10 Roll in l 19:44: palms of [place] 00 hands gently; Do not shake `vigorousl y. (Same as: Humalog ) "Single Patient Use Only " WASTE: F/P - Black; E - Municipal Trash Bin Stable for 28 days at room temperatur e. Expires in days from ____Date Zofran No Notes: Memoria 01-10 (Same as: l 19:24: Zofran) Melatonin No Notes: Memori a 01-10 (Same as: l 19:24: Melatonin) Guaifenesin No Notes: Usnday tressa 01-10 (Same as: l 19:23: Organidin NR) Adderall No 10 mg, Memoria 01-10 Route: PO, l 19:22: Drug form: [place] TAB, BID, Dosing Weight 84.091, kg, PRN Agitation, Start date: 01/10/17 14:22:00 CDT, Duration: 30 day, Stop date: 02/09/17 14:21:00 CDT gabapentin No Notes: Memor ia 01-10 (Same as: l 19:00: Neurontin) Acetaminoph No Notes: Max Memoria en 01-10 acetaminop l 18:00: hen 4000 [place] 00 mg/day (4 gm/day). (Same as: Tylenol Extra Strength) Guaifenesin Yes 400 mg, Mem oria 01-10 PO, BID, l 17:15: PRN [place] 00 Cough/Russell estion, 0 Refill(s) Amphetamine Yes 10 mg = 1 M emoria aspartate 01-10 tab, PO, l 2.5 MG / 17:15: BID, PRN Kelley nn Amphetamine 00 Agitation, Sulfate 2.5 # 60 tab, MG / 0 Dextroamphe Refill(s) tamine saccharate 2.5 MG / Dextroamphe tamine Sulfate 2.5 MG Oral Tablet [Adderall] melatonin 5 Yes 5 mg = 1 Me moria mg oral 01-10 tab, PO, l tablet 17:15: Bedtime, [place] 00 PRN for insomnia, # 60 tab, 0 Refill(s) Adderall Yes PO, BID, 0 Mem oria 18 Refill(s) l 17:15: [place] 00 hyoscyamine Yes 0.125 mg = Memoria 0.125 mg 18 1 tab, PO, l oral tablet 17:15: TID, 0 Herm amena 00 Refill(s) levocetiriz Yes 5 mg = 1 Me moria ine 5 mg 18 tab, PO, l oral tablet 17:15: QPM, # 30 H ermann 00 tab, 1 Refill(s) Oxycodone No Notes: Memori a Hydrochlori 01-10 (Same as: l de 5 MG 17:03: Roxicodone Herm amena Oral Tablet 00 ) Morphine No Notes: Memoria 01-10 (Same l 17:03: as:MORPhin Martinez 00 e Sulfate) Hydromorpho No 0.3 mg, Mem oria ne 01-10 0.3 mL, l 17:03: Route: [place] 00 IVP, Drug form: INJ, Q4H, Dosing Weight 84.091, kg, PRN Pain Score 7-10, Start date: 01/10/17 12:03:00 CDT, Duration: 30 day, Stop date: 02/09/17 12:02:00 CDT Ondansetron No Notes: Sunday tressa 01-10 (Same as: l 17:03: Zofran) MEDICATION WASTE Product Size: 4 mg Product Wasted: ___ mg Cefazolin No 1 gm, Memoria 01-10 Route: l 17:00: IVPB, Drug form: INJ, Q6H, Dosing Weight 84.091, kg, Start date: 01/10/17 12:00:00 CDT, Duration: 3 doses or times, Stop date: 01/11/17 0:00:00 CDT, ABX Indication : Surgical Prophylaxi s Zofran No 4 mg, Memoria 18 Route: l 16:16: IVP, Drug form: INJ, ONCE, Dosing Weight 84.091, kg, Start date: 01/10/17 11:16:00 CDT, Stop date: 01/10/17 11:16:00 CDT Morphine 2016-0 No 2 mg, Memoria 01-10 Route: l 16:09: IVP, ONCE, Dosing Weight 84.091, kg, Start date: 01/10/17 11:09:00 CDT, Stop date: 01/10/17 11:09:00 CDT Ondansetron 2016-0 No 4 mg, 5 Mem oria 0.8 MG/ML 9- mL, Route: l Oral 16:09: IV, ONCE, Dosing [Zofran] Weight 84.091, kg, Start date: 01/10/17 11:09:00 CDT, Stop date: 01/10/17 11:09:00 CDT Morphine 2017-0 No 2 mg, Memoria 01-10 Route: l 15:55: IVP, ONCE, Dosing Weight 84.091, kg, Start date: 01/10/17 10:55:00 CDT, Stop date: 01/10/17 10:55:00 CDT ropivacaine 2016-0 No Notes: Sunday tressa 01-10 Same as: l 15:13: Naropin ondansetron No Route: IV, Memoria (ANES) 01-10 Drug form: l 15:09: INJ, ONCE, Stop date: 01/10/17 10:09:00 CDT dexamethaso 2016-0 No Route: IV, Memoria ne (ANES) 01-10 Drug form: l 13:42: INJ, ONCE, Stop date: 01/10/17 8:42:00 CDT rocuronium 2016-0 No Route: IV, M emoria (ANES) 01-10 Drug form: l 13:42: INJ, ONCE, [place] 00 Stop date: 01/10/17 8:42:00 CDT fentaNYL 2016-0 No Route: IV, Mem oria (ANES) 01-10 Drug form: l 13:42: INJ, ONCE, Stop date: 01/10/17 8:42:00 CDT propofol 2016-0 No Route: IV, Mem oria (ANES) 01-10 Drug form: l 13:42: INJ, ONCE, Stop date: 01/10/17 8:42:00 CDT lidocaine No Route: IV, Me moria (ANES) 01-10 Drug form: l 13:27: INJ, ONCE, Stop date: 01/10/17 8:27:00 CDT succinylcho No Route: IV, Memoria line (ANES) 01-10 Drug form: l 13:27: INJ, ONCE, Stop date: 01/10/17 8:27:00 CDT ceFAZolin No Route: IV, Me moria (ANES) 01-10 Drug form: l 13:27: INJ, ONCE, Stop date: 01/10/17 8:27:00 CDT Enoxaparin No 30 mg, Memor ia 01-10 Route: l 13:00: SUB-Q, Drug form: INJ, [id number], Dosing Weight 84.091, kg, Start date: 01/10/17 8:00:00 CDT, Duration: 30 day, Stop date: 02/08/17 20:00:00 CDT Isolyte S No Route: IV, Me moria (PH 7.4) 01-10 Total l 1000 mL 12:45: Volume: Martinez (ANES) 00 1,000, Start date: 01/10/17 7:45:00 CDT, Stop date: 01/10/17 8:45:00 CDT sodium No 1,000 mL, Memori a chloride 01-10 Rate: 75 l 0.45% 1000 12:19: ml/hr, Kelley nn ml INJ 00 Infuse 1,000 mL over: 13.3 hr, Route: IV, Dosing Weight 84.091 kg, Total Volume: 1,000, Start date: 01/10/17 7:19:00 CDT, Duration: 30 day, Stop date: 02/09/17 7:18:00 CDT gabapentin No Notes: Memor ia 01-10 (Same as: l 10:32: Neurontin) hyoscyamine Yes 0.125 mg = [facility] (ANASPAZ,LE 01-10 1 tab, PO, Radha kes - VSIN) 0.125 00:00: TID, 0 Medi kasey mg tablet 00 Refill(s) Cente r levocetiriz Yes 5 mg = [address] [facility] (XYZAL) 01-10 tab, PO, Luke [facility] - 5 MG tablet 00:00: QPM, # 30 M edical 00 tab, 1 Center Refill(s) melatonin Yes 10 mg = [address] [facility] 10 mg Cap 01-10 PO, [facility] - 00:00: Bedtime, Medical 00 PRN for Center insomnia, # 60 tab, 0 Refill(s) diphenhydrA Yes 25mg [facility] MINE 11-19 [facility] - (BENADRYL) 11:30: Medical capsule 25 00 Center mg acetaminoph Yes 650mg [facility] 11-19 [facility] - (TYLENOL) 11:30: Medical tablet 650 00 Center mg HYDROcodone Yes 1{tbl} Q8H Take 1 [place] -acetaminop 4-05 tablet by Met dilan hen (NORCO) 00:00: mouth st 10-325 mg 00 every 8 per tablet (eight) hours as needed. hyoscyamine Yes 125ug Q.[id number] Take 125 [place] (ANASPAZ,LE 01-19 [id number] mcg by Kath VSIN) 0.125 00:00: 3D mouth 3 st mg tablet 00 (three) times a day. modafinil 2020- No 200mg QD Take 200 [place] (PROVIGIL) 01-13 02-09 mg by Methodi 200 MG 00:00: 00:[address] tablet 00 :00 every morning. ondansetron 2019- No TAKE 1 [address] ston (ZOFRAN) 4 01-10 09-11 TABLET BY Met hodi MG tablet 00:00: 00:[address] 00 :00 EVERY 8 HOURS NEEDED FOR NAUSEA/VOM IT ALPRAZolam Yes .5mg Take 0.[address] [facility] (XANAX) 0.5 9-13 mg by [facility] - MG tablet 00:00: mouth. Medica l 00 Center ALPRAZolam Yes 1mg Q.74030820 Take 1 mg [place] (XANAX) 1 9-13 [id number] by mouth 3 [facility] MG tablet 00:00: 3D (three) st 00 times a day as needed. Bid metoclopram Yes 10mg Q.25D Take 10 mg [facility] dagmar 12-31 by mouth 4 [facility] (REGLAN) 10 00:00: (four) st MG tablet 00 times a day. sodium Yes [facility] chloride 6-24 [facility] - 0.9% (NS) 13:30: Medical infusion 00 [place] sodium Yes [facility] chloride 5-27 [facility] - 0.9% (NS) 13:30: Medical infusion 00 [place] Kytril Yes Notes: Memoria 2-05 Same as: l 16:48: Kytril [place] 00 Non Formulary MEDICATION WASTE Product Size: 1 mg Product Wasted: ___ mg Promethazin No 12.5 mg, Me moria e 05-30 Route: IM, l 16:48: ONCE, [place] 00 Dosing Weight 86.364, kg, Start date: 05/30/15 10:48:00, Stop date: 05/30/15 10:48:00 Ondansetron No Notes: Sunday tressa 2-05 (Same as: l 12:47: Zofran) MEDICATION WASTE Product Size: 4 mg Product Wasted: ___ mg Calcium No 1,000 mL, Memor ia Chloride 205 Rate: 125 l 0.0014 12:47: ml/hr, [place] MEQ/ML / Infuse Potassium over: 8 Chloride hr, Route: 0.004 IV, Dosing MEQ/ML / Weight Sodium 86.364 kg, Chloride Total 0.103 Volume: MEQ/ML / 1,000, Sodium Start Lactate date: 0.028 05/30/15 MEQ/ML 6:47:00, Injectable Duration: Solution 30 day, Stop date: 06/29/15 6:46:00 Acetaminoph No Notes: Sunday tressa en 2-05 Infuse l 12:47: over 15 [place] 00 minutes Do not exceed 4gm/day of acetaminop hen MEDICATION WASTE Product Size: 1000 mg Product Wasted: ___ mg Fentanyl No Notes: Memoria 2-05 (Same as: l 12:47: Sublimaze) Preservat misty free. Morphine No Notes: Memoria 2-05 (Same l 12:47: as:MORPhin e Sulfate) Flumazenil No Notes: Memor ia 2-05 (Same as: l 12:47: Romazicon) Naloxone No Notes: Memoria 2-05 Same as l 12:47: Narcan Calcium No 1,000 mL, Memor ia Chloride 05-30 Rate: 25 l 0.0014 12:46: ml/hr, [place] MEQ/ML / 00 Infuse Potassium over: 40 Chloride hr, Route: 0.004 IV, Dosing MEQ/ML / Weight Sodium 86.364 kg, Chloride Total 0.103 Volume: MEQ/ML / 1,000, Sodium Start Lactate date: 0.028 05/30/15 MEQ/ML 6:46:00, Injectable Duration: Solution 30 day, Stop date: 06/29/15 6:45:00 Insulin, 2014-04 No Notes: Memoria Aspart, 04-30 Roll in l Human 17:44: palms of hands gently; Do not shake vigorously . (Same as: NovoLOG) "single patient use only" Stable for 28 days at room temperatur e. Expires in days from ____Date Ondansetron 2014-04 No Notes: Sunday tressa 04-30 (Same as: l 17:44: Zofran) MEDICATION WASTE Product Size: 4 mg Product Wasted: ___ mg Labetalol 2014-04 No Notes: Memori a - (Same as: l 17:44: Normodyne, Trandate) Push over 2 minutes Give bolus over 2-3 minutes. Calcium 2014-04 No 1,000 mL, Memor ia Chloride 04-30 Rate: 125 l 0.0014 17:44: ml/hr, [place] MEQ/ML / 00 Infuse Potassium over: 8 Chloride hr, Route: 0.004 IV, Dosing MEQ/ML / Weight Sodium 86.364 kg, Chloride Total 0.103 Volume: MEQ/ML / 1,000, Sodium Start Lactate date: 0.028 02/28/15 MEQ/ML 11:44:00, Injectable Duration: Solution 30 day, Stop date: 03/30/15 11:43:00 Morphine 2014-04 No Notes: Memoria - (Same l 17:44: as:MORPhin e Sulfate) Meperidine 2014-04 No Notes: Memor ia - (Same As: l 17:44: Demerol) Flumazenil 2014-04 No Notes: Memor ia - (Same as: l 17:44: Romazicon) Naloxone 2014-04 No Notes: Memoria 04-30 (Same as: l 17:44: Narcan) Imuran 2014-04 Yes 100 mg, Memoria 1-04 PO, Daily l 22:56: Provigil 2014-04 Yes 200 mg, Memori a 1-04 PO, QAM l 22:55: Zantac 2014-04 Yes 300 mg, Memoria 1-04 PO, Daily l 22:54: Omeprazole 2014-04 Yes 40 mg, PO, M emoria 1-04 Daily l 22:54: Losartan 2014-04 Yes 25 mg, PO, Mem oria 1-04 Bedtime l 22:53: Zyrtec 2014-04 Yes 5 mg, PO, Memori a 1-04 Daily l 22:53: Furosemide 2014-04 Yes 40 mg, PO, M emoria 1-04 Daily l 22:52: Lexapro 2014-04 Yes 40 mg, PO, Sunday tressa 1-04 Daily l 22:52: Reglan 2014-04 Yes 10 mg, PO, Memor ia 1-04 QID-Before l 22:52: Meals Tramadol 2014-04 Yes 50 mg, PO, Mem oria 1-04 Q4-6H, PRN l 22:52: Pain potassium 2014-04 Yes 20 mEq, Memor ia chloride 1-04 PO, Daily, l 22:51: 0 Refill(s) Xanax 2014-04 Yes 0.25 mg, Memoria 1-04 PO, TID l 22:51: [place] 00 Zofran 2014-04 Yes 4 mg, PO, Memori a 1-04 Q8H, PRN l 22:50: as needed [place] 00 for nausea/vom iting Benadryl 2014-04 Yes 25 mg, PO, Mem oria 1-04 Bedtime l 22:50: [place] 00 Mucinex 2014-04 Yes 600 mg, Memoria 1-04 PO, Q12H l 22:50: [place] [address] [facility] chloride 9-25 [facility] - 0.9% (NS) 14:00: Medical infusion 00 Center inFLIXimab 2012-04 Yes Rheumatoid [facility] (REMICADE) 2-05 arthritis [facility] - 600 mg in 11:00: Medical sodium 00 Center chloride 0.9% (NS) 250 mL IVPB Immunizations Ordered Immunization Filled Immunization Date Status Commen ts Source Name Name PFIZER COVID-19 MRNA 2020-07-16 Completed [place] VACC[place] 00:00:00 Jew PFIZER COVID-19 MRNA 2020-06-25 Completed [place] VACCINATION 00:00:00 Jew DT 2020-01-01 Completed [place] 00:00:00 Jew FLUZONE QUAD 2019-02-23 Completed [place] 00:00:00 Jew Vital Signs Vital Name Observation Time Observation Value Comments Source Systolic blood 2020-09-04 13:05:00 149 mm[Hg] [place] Jew pressure Diastolic blood 2020-09-04 13:05:00 82 mm[Hg] [place] Jew pressure Heart rate 2020-09-04 13:05:00 58 /min Jaxon Mata Respiratory rate 2020-09-04 13:05:00 18 /min [place] Body height 2020-09-04 13:05:00 167.6 cm Jaxon Mata Body weight 2020-09-04 13:05:00 85.276 kg Jaxon Mata BMI 2020-09-04 13:05:00 30.34 kg/m2 Jaxon Mata Oxygen saturation in 2020-09-04 13:05:00 100 /min Jaxon Mata Arterial blood by Pulse oximetry Body temperature 2020-05-28 09:35:00 36.17 Erica [place] Heart Rate 2017-01-12 13:15:00 [facility] [place] Temperature Oral (F) 2017-01-12 13:15:00 98.2 F [facility] [place] Respitory Rate 2017-01-12 13:15:00 Memori al [place] Systolic (mm Hg) 2017-01-12 13:15:00 Sunday rial [place] Diastolic (mm Hg) 2017-01-12 13:15:00 Mem orial [place] Respitory Rate 2017-01-12 09:00:00 Memori al [place] Systolic (mm Hg) 2017-01-12 09:00:00 Sunday rial [place] Diastolic (mm Hg) 2017-01-12 09:00:00 Mem orial [place] Temperature Oral (F) 2017-01-12 09:00:00 98.6 F [facility] [place] Heart Rate 2017-01-12 09:00:00 [facility] [place] Heart Rate 2017-01-12 05:00:00 [facility] [place] Temperature Oral (F) 2017-01-12 05:00:00 99.2 F [facility] [place] Systolic (mm Hg) 2017-01-12 05:00:00 Sunday rial [place] Diastolic (mm Hg) 2017-01-12 05:00:00 Mem orial [place] Respitory Rate 2017-01-12 05:00:00 Memori al [place] Weight 2017-01-10 17:08:00 [facility] [place] BMI Calculated 2017-01-10 17:08:00 Memori al [place] Height 2017-01-10 17:08:00 167.64 cm [facility] [place] Height 2017-01-06 21:23:00 152.4 cm [facility] [place] Weight 2017-01-06 21:23:00 [facility] [place] BMI Calculated 2017-01-06 21:23:00 Memori al [place] Systolic (mm Hg) 2015-05-30 17:30:00 Sunday rial [place] Diastolic (mm Hg) 2015-05-30 17:30:00 Mem orial [place] Respitory Rate 2015-05-30 17:30:00 Memori al [place] Systolic (mm Hg) 2015-05-30 17:15:00 Sunday rial [place] Diastolic (mm Hg) 2015-05-30 17:15:00 Mem orial [place] Respitory Rate 2015-05-30 17:15:00 Memori al [place] Respitory Rate 2015-05-30 17:00:00 Memori al [place] Systolic (mm Hg) 2015-05-30 17:00:00 Sunday rial [place] Diastolic (mm Hg) 2015-05-30 17:00:00 Mem orial [place] Height 2015-05-27 17:55:00 167.64 cm [facility] [place] BMI Calculated 2015-05-27 17:55:00 Memori al [place] Weight 2015-05-27 17:55:00 [facility] [place] Systolic (mm Hg) 2015-02-28 18:33:00 Sunday rial [place] Diastolic (mm Hg) 2015-02-28 18:33:00 Mem orial [place] Systolic (mm Hg) 2015-02-28 18:30:00 Sunday rial [place] Diastolic (mm Hg) 2015-02-28 18:30:00 Mem orial [place] Respitory Rate 2015-02-28 18:30:00 Memori al [place] Systolic (mm Hg) 2015-02-28 18:15:00 Sunday rial [place] Diastolic (mm Hg) 2015-02-28 18:15:00 Mem orial [place] Respitory Rate 2015-02-28 18:15:00 Memori al [place] Respitory Rate 2015-02-28 18:00:00 Memori al [place] Heart Rate 2015-02-28 13:15:00 [facility] [place] BMI Calculated 2015-02-26 22:25:00 Memori al [place] Weight 2015-02-26 22:25:00 [facility] [place] Height 2015-02-26 22:25:00 [facility] Procedure Date / Time Performing Source Performed Clinician COVID-19 ANTI-SPIKE IGG ANTIBODY 2020-09-04 Spring Joshi TITER 14:05:00 Jew C-REACTIVE PROTEIN 2020-09-04 Spring Joshi 14:05:00 Jew SEDIMENTATION RATE 2020-09-04 Spring Joshi 14:05:00 Jew URINALYSIS, AUTOMATED WITH 2020-09-04 Spring Joshi Patrick ston MICROSCOPY 14:05:00 Jew COMPREHENSIVE METABOLIC PANEL 2020-09-04 Spring Joshi 14:05:00 Jew HC COMPLETE BLD COUNT W/AUTO DIFF 2020-09-04 Spring Joshi 14:05:00 Jew ESTIMATED GFR 2020-09-04 Spring Joshi [place] 14:05:00 Jew SURGICAL PATHOLOGY RE[facility] 2020[facility]05-[facility] 10:[facility] Jew POC GLUCOSE 2020-05-28 Raza Bae 08:58:00 Jew ESOPHAGOGASTRODUODENOSCOPY (EGD) 2020-05-28 Raza Bae 07:54:00 Jew COLONOSCOPY 2020-05-28 Raza Bae 07:54:00 Jew POC GLUCOSE 2020-05-28 Raza Bae 07:50:00 Jew COVID-19 QUALITATIVE PCR 2020-05-23 Sandro Anup [place] 12:19:00 Isiah Mata ECG PRE/POST OP 2020-05-22 Asya Dumont [place] 16:53:50 Annia Mata COMPREHENSIVE METABOLIC PANEL 2020-05-22 [place] janeen 16:25:00 Annia Mata HC COMPLETE BLD COUNT W/AUTO DIFF 2020-05-22 [place] 16:25:00 Annia Mata HEMOGLOBIN A1C 2020-05-22 [place] 16:25:00 Annia Mata ESTIMATED GFR 2020-05-22 Asya Dumont [place] 16:25:00 Annia Mata COMPREHENSIVE METABOLIC PANEL 2020-04-03 Spring Joshi 14:04:00 Jew CBC WITH PLATELET AND DIFFERENTIAL 2020-04-03 Keegan Joshi 14:04:00 Jew C-REACTIVE PROTEIN 2020-04-03 Spring Joshi 14:04:00 Jew SEDIMENTATION RATE 2020-04-03 Spring Joshi 14:04:00 Jew URINALYSIS, AUTOMATED WITH 2020-04-03 [facility] 14:04:00 Jew TKR -Total prosthetic replacement 2017-01-10 [facility] of knee joint using cement 05:00:00 Cholecystectomy [facility] [place] Hysterectomy [facility] Procedure<sup>1</sup> [facility] Rotator cuff repair<sup>3</sup> [facility] Planned Activity Planned Date Details Comments Source Future Scheduled 2020-11-23 INFLUENZA VACCINE [place] [facility] 00:00:00 [code = INFLUENZA VACCINE] Future Scheduled 2019-12-25 INFLUENZA VACCINE (#1[facility] 00:[facility]:00 [code = INFLUENZA Medical Ce nter VACCINE (#1)] Future Scheduled 2016-11-24 PNEUMOCOCCAL 65+ Y[facility] - Test 00:00:00 (1 of 1 - Medical Center [id number] PCV13) [code = PNEUMOCOCCAL 65+ YRS (1 of 1 - [id number] PCV13)] Future Scheduled 2014-04-[address] [facility] [address] [facility] - Test 00:00:00 WELLNESS (YEAR 2 or Medical Center FIRST YEAR if no IPPE) [code = MEDICARE ANNUAL WELLNESS (YEAR 2 or FIRST YEAR if no IPPE)] Future Scheduled 2001-11-24 BREAST CANCER [place] [facility] Test 00:00:00 SCREENING [code = BREAST CANCER SCREENING] Future Scheduled 2001-11-24 COLONOSCOPY SCREENING [place] [facility] Test 00:00:00 [code = COLONOSCOPY SCREENING] Future Scheduled 2001-11-24 SHINGLES VACCINES (#1) [place] [facility] Test 00:00:00 [code = SHINGLES VACCINES (#1)] Future Scheduled 1969-11-24 Hepatitis C screening [place] Jew Test 00:00:00 (procedure) [code = 044871573] Future Scheduled 1961-11-24 DIABETES: RETINAL EYE [place] Jew Test 00:00:00 EXAM [code = DIABETES: RETINAL EYE EXAM] Future Scheduled 1961-11-24 DIABETIC FOOT EXAM [place] Test 00:00:00 [code = DIABETIC FOOT EXAM] Future Scheduled [address] [facility] - Test 00:00:00 malignant neoplasm of Medica l Center breast (procedure) [code = 302391332] Future Scheduled [address] [facility] - Test 00:00:00 malignant neoplasm of Medica l Center colon (procedure) [code = 671859522] Encounters Start End Encounter Admission Attending Care Care Encounter Source Date/Time Date/Time Type Type Clinicians Facility Department ID 2020-09-04 2020-09-04 Outpatient MADELYN [facility] [id number] [place] 00:00:00 00:00:00 [place] [address] 2020-09-04 2020-09-04 Outpatient JOSHI, [facility] [id number] [place] 00:00:00 00:00:00 [place] [address] 2020-08-11 2020-08-11 Telephone [facility] [id number] 00:00:00 00:00:00 [facility] [id number] [place] [id number] Professio [phone] nal 0[address] 2020-08-10 2020-08-10 Telephone [facility] [id number] 00:00:00 00:00:00 [facility] [id number] [place] [id number] Professio [phone] nal 044 [address] 2020-08-08 2020-08-08 Laboratory Lab, [facility] [id number] 16:17:18 16:37:18 Only Fam Pob I Health [id number] [place] [id number] Professio [phone] nal 044 [address] One 2020-07-16 2020-07-16 Outpatient DIANE, [facility] [id number] [place] 00:00:00 00:00:00 TITA 702 Me thodi 2020-06-25 2020-06-25 Outpatient [facility] [id number] [place] 00:00:00 00:00:[address] 2020-06-03 2020-06-03 Outpatient JOSHI, [facility] [id number] [place] 00:00:00 00:00:00 SPRING 015 Method i 2020-05-28 2020-05-28 Outpatient CATALINO, [facility] [id number] [place] 00:00:00 00:00:00 RAZA [address] 2020-05-26 2020-05-26 [facility] [id number] 15:00:00 23:59:00 Morenita Linton [place] [id number] [place] [id number] [place] [id number] [id number] 2020-05-23 2020-05-23 Outpatient CATALINO, [facility] [id number] [place] 00:00:00 00:00:00 RAZA 104 Method i 2020-05-22 2020-05-22 Outpatient CATALINO, [facility] [id number] [place] 00:00:00 00:00:00 RAZA 106 Method i 2019-12-06 2019-12-06 Office Deandre, [facility] [id number] 09:02:16 09:17:16 Visit Sam P AMBULATOR [id number] Y [id number] [id number] 2019-10-29 2019-10-29 Outpatient AGLIECO, [facility] [id number] [place] 00:00:00 00:00:00 QUITA 741 Method i 2019-10-29 2019-10-29 Outpatient CATALINO, [facility] [id number] [place] 00:00:00 00:00:00 RAZA 156 Method i 2019-10-08 2019-10-08 Outpatient [facility] [id number] [place] 00:00:00 00:00:00 394 Method i 2019-08-09 2019-08-09 Outpatient JOSHI, [facility] [id number] [place] 00:00:00 00:00:00 SPRING 363 Method i 2019-08-03 2019-08-03 [facility] [id number] 00:00:00 00:00:00 Raina [facility] [id number] [place] [id number] Professio [phone] nal 044 Office [address] One 2019-08-02 2019-08-02 [facility] [id number] 00:00:00 00:00:00 [facility] [id number] [place] [id number] Professio [phone] nal 044 [address] One 2019-08-01 2019-08-01 Urgent Pob1, Acute [facility] [id number] 14:44:29 16:09:59 [facility] [id number] [place] [id number] [place] [phone] nal 044 Office [address] One 2017-01-10 2017-01-12 Outpatient Brandon [facility] [id number] 05:10:00 13:00:00 Justin O 2015-05-30 2015-05-30 Outpatient Brandon [facility] [id number] 06:30:00 12:35:00 Justin O 2015-02-28 2015-02-28 Outpatient Brandon [facility] [id number] 06:35:00 14:10:00 Justin O 00 Results Test Description Test Time Test Comments Results Result Comments Source Urinalysis, automated with microscopy 2020-09-04 15:35:00 Test Item Value Reference Range Interpretation Comme nts Color, UA (test code = 5778-6) Yellow Appearance, UA (test code = Hazy 5767-9) Specific gravity, UA (test 1.003 1.001-1.035 code = 5811-5) pH, UA (test code = 5803-2) 7.0 5.0-8.5 Protein, UA (test code = Negative Negative 56048-5) Glucose, UA (test code = Negative Negative 81452-9) Ketones, UA (test code = Negative Negative 2514-8) Bilirubin, UA (test code = Negative Negative 5770-3) Blood, UA (test code = 5794-3) Negative Negative Nitrite, UA (test code = Negative Negative 5802-4) Urobilinogen, UA (test code = <2.0 <2.0 22830-8) Leukocyte esterase, UA (test Negative Negative code = 5799-2) WBC, UA (test code = 5821-4) 1 See_Comment [Automated message] The system which generated this result transmitted ref erence range: 0 - 4 /HPF. The r eference range was not used to interpret this result as edel l/abnormal. RBC, UA (test code = 56105-2) <1 See_Comment [Automated message] The system which generated this result transmitted ref erence range: 0 - 5 /HPF. The r eference range was not used to interpret this result as edel l/abnormal. Bacteria, UA (test code = Few None seen 45806-5) Yeast, UA (test code = None seen 08446-7) Yeast with pseudohyphae, UA None seen (test code = 78207-7) [facility] Andreyurgical pathology [id number] 13:50:50 Test Item Value Reference Range Interpretation Comments Case number (test code = [id number]) Surgical pathology See link below for report (test code = PDF Lab Report 2255) Result status (test code This is Final Report = [id number]) for [id number] Jaxon MataCOVID-19 qualitative [id number] 19:48:52 Test Item Value Reference Range Interpretation Comments Interpretation (test Negative results do code = 7268283) not preclude 2019-nCoV infection and should not be used as the sole basis for treatment or other patient management decisions. Negative results must be combined with clinical observations, patient history, and epidemiological information. COVID-19 qualitative Not-Detected Not-Detected PCR result (test code = 72555-6) COVID-19 qualitative See link below for C ase Number: PCR (test code = PDF Lab Report [id number]) Jaxon BalderasXbpfnwyzxVOYQ-IgD-1 (COVID-19) RNA [Presence] in Respiratory specimen by MAURICE with probe [id number] 19:48:19 Test Item Value Reference Range Interpretation Comments SARS-CoV-2 (COVID-19) RNA Not detected Not-Detected [Presence] in Respiratory specimen by MAURICE with probe detection (test code = 36637-7) ECG Pre/Post [id number] 18:20:09 Test Item Value Reference Range Interpretation Comments Ventricular rate (test 71 code = 253) Atrial rate (test code = 71 255) ME interval (test code = 168 266) QRSD interval (test code 82 = 260) QT interval (test code = 424 264) QTC interval (test code = 460 265) P axis 1 (test code = 47 267) QRS axis 1 (test code = 27 268) T wave axis (test code = 23 270) EKG impression (test code Normal sinus = 273) rhythm-Normal ECG-- Jaxon MethodistHEPATITIS B SURFACE [id number] 14:42:00 Test Item Value Reference Range Interpretation Comments HEPATITIS B SURFACE ANTIBODY < mIU/mL <8.0 (BEAKER) (test code = 647) HEPATITIS A ANTIBODY, [id number] 14:42:00 Test Item Value Reference Range Interpretation Comments HEPATITIS A IGG ANTIBODY (BEAKER) Reactive Nonreactive A (test code = 2797) HEPATITIS B SURFACE [id number] 14:23:00 Test Item Value Reference Range Interpretation Comments HEPATITIS B SURFACE ANTIGEN (2) Nonreactive Nonreactive (BEAKER) (test code = 2585) HEPATITIS C [id number] 14:23:00 Test Item Value Reference Range Interpretation Comments HEPATITIS C ANTIBODY (BEAKER) Nonreactive Nonreactive (test code = 367) HEPATITIS B CORE ANTIBODY, [id number] 14:23:00 Test Item Value Reference Range Interpretation Comments HEPATITIS B CORE TOTAL ANTIBODY Nonreactive Nonreactive (BEAKER) (test code = 497) HEPATIC FUNCTION [id number] 14:04:00 Test Item Value Reference Range Interpretation Comments TOTAL PROTEIN (BEAKER) (test code = 9.0 gm/dL 6.0-8.3 H 770) ALBUMIN (BEAKER) (test code = 1145) 4.2 g/dL 3.5-5.0 BILIRUBIN TOTAL (BEAKER) (test code 0.3 mg/dL 0.2-1.2 = 377) BILIRUBIN DIRECT (BEAKER) (test 0.2 mg/dL 0.1-0.5 code = 706) ALKALINE PHOSPHATASE (BEAKER) (test 111 U/L 40-150 code = 346) AST (SGOT) (BEAKER) (test code = 44 U/L 5-34 H 353) ALT (SGPT) (BEAKER) (test code = 30 U/L 6-55 347) BASIC METABOLIC [id number] 14:04:00 Test Item Value Reference Range Interpretation Comments SODIUM (BEAKER) 129 meq/L 136-145 L (test code = 381) POTASSIUM (BEAKER) 4.0 meq/L 3.5-5.1 (test code = 379) CHLORIDE (BEAKER) 94 meq/L 98-107 L (test code = 382) CO2 (BEAKER) (test 24 meq/L 22-29 code = 355) BLOOD UREA NITROGEN 4 mg/dL 7-21 L (BEAKER) (test code = 354) CREATININE (BEAKER) 0.67 mg/dL 0.57-1.25 (test code = 358) GLUCOSE RANDOM 98 mg/dL 70-105 (BEAKER) (test code = 652) CALCIUM (BEAKER) 9.7 mg/dL 8.4-10.2 (test code = 697) EGFR (BEAKER) (test 88 mL/min/1.73 ESTIMA REJI GFR IS code = 1092) sq m NOT ACCURATE CREATININE CLEARANCE IN PREDICTING GLOMERULAR FILTRATION RATE . ESTIMATED GFR I S NOT APPLICABLE FOR DIALYSIS PATIEN TS. PROTHROMBIN [id number] 13:45:00 Test Item Value Reference Range Interpretation Comments PROTIME (BEAKER) (test code = 13.4 seconds 11.7-14.7 759) INR (BEAKER) (test code = 370) 1.0 <=5.9 RECOMMENDED COUMADIN/WARFARIN INR THERAPY RANGESSTANDARD DOSE: 2.0 - 3.0 Includes: PROPHYLAXIS forvenous thrombosis, systemic embolization; TREATMENT for venous thrombosis and/or pulmonary embolus.HIGH RISK: Target INR is 2.5-3.5 for patients with mechanical heart valves.CBC W/PLT COUNT & AUTO DIFFERENTIAL 2018-01-26 13:31:00 Test Item Value Reference Range Interpretation Comments WHITE BLOOD CELL COUNT (BEAKER) 5.3 K/ L 3.5-10.5 (test code = 775) RED BLOOD CELL COUNT (BEAKER) 4.61 M/ L 3.93-5.22 (test code = 761) HEMOGLOBIN (BEAKER) (test code = 12.8 GM/DL 11.2-15.7 410) HEMATOCRIT (BEAKER) (test code = 39.8 % 34.1-44.9 411) MEAN CORPUSCULAR VOLUME (BEAKER) 86.3 fL 79.4-94.8 (test code = 753) MEAN CORPUSCULAR HEMOGLOBIN 27.8 pg 25.6-32.2 (BEAKER) (test code = 751) MEAN CORPUSCULAR HEMOGLOBIN CONC 32.2 GM/DL 32.2-35.5 (BEAKER) (test code = 752) RED CELL DISTRIBUTION WIDTH 14.0 % 11.7-14.4 (BEAKER) (test code = 412) PLATELET COUNT (BEAKER) (test 316 K/CU MM 150-450 code = 756) MEAN PLATELET VOLUME (BEAKER) 9.7 fL 9.4-12.3 (test code = 754) NUCLEATED RED BLOOD CELLS 0 /100 WBC 0-0 (BEAKER) (test code = 413) NEUTROPHILS RELATIVE PERCENT 62 % (BEAKER) (test code = 429) LYMPHOCYTES RELATIVE PERCENT 22 % (BEAKER) (test code = 430) MONOCYTES RELATIVE PERCENT 12 % (BEAKER) (test code = 431) EOSINOPHILS RELATIVE PERCENT 4 % (BEAKER) (test code = 432) BASOPHILS RELATIVE PERCENT 1 % (BEAKER) (test code = 437) NEUTROPHILS ABSOLUTE COUNT 3.27 K/ L 1.56-6.13 (BEAKER) (test code = 670) LYMPHOCYTES ABSOLUTE COUNT 1.14 K/ L 1.18-3.74 L (BEAKER) (test code = 414) MONOCYTES ABSOLUTE COUNT (BEAKER) 0.62 K/ L 0.24-0.36 H (test code = 415) EOSINOPHILS ABSOLUTE COUNT 0.19 K/ L 0.04-0.36 (BEAKER) (test code = 416) BASOPHILS ABSOLUTE COUNT (BEAKER) 0.07 K/ L 0.01-0.08 (test code = 417) IMMATURE GRANULOCYTES-RELATIVE 0 % 0-1 PERCENT (BEAKER) (test code = 2801) COMPREHENSIVE METABOLIC [id number] 12:54:00 Test Item Value Reference Range Interpretation Comments TOTAL PROTEIN 8.0 gm/dL 6.0-8.3 Specimen moder ately (BEAKER) (test code = hemoly zed 770) ALBUMIN (BEAKER) 3.7 g/dL 3.5-5.0 Specimen mo derately (test code = 1145) hemolyzed ALKALINE PHOSPHATASE 77 U/L 40-150 (BEAKER) (test code = 346) BILIRUBIN TOTAL 0.4 mg/dL 0.2-1.2 Specimen mod erately (BEAKER) (test code = hemoly zed 377) SODIUM (BEAKER) (test 130 meq/L 136-145 L code = 381) POTASSIUM (BEAKER) 4.2 meq/L 3.5-5.1 Specimen moderately (test code = 379) hemolyzed CHLORIDE (BEAKER) 96 meq/L 98-107 L (test code = 382) CO2 (BEAKER) (test 24 meq/L 22-29 code = 355) BLOOD UREA NITROGEN 6 mg/dL 7-21 L (BEAKER) (test code = 354) CREATININE (BEAKER) 0.67 mg/dL 0.57-1.25 Specimen moderately (test code = 358) hemolyzed GLUCOSE RANDOM 152 mg/dL 70-105 H (BEAKER) (test code = 652) CALCIUM (BEAKER) 9.0 mg/dL 8.4-10.2 (test code = 697) AST (SGOT) (BEAKER) 44 U/L 5-34 H Specimen moderately (test code = 353) hemolyzed ALT (SGPT) (BEAKER) 27 U/L 6-55 Specimen moderately (test code = 347) hemolyzed EGFR (BEAKER) (test 88 mL/min/1.73 ESTIMA REJI GFR IS code = 1092) sq m NOT ACCURATE CREATININE CLEARANCE IN PREDICTING GLOMERULAR FILTRATION RATE . ESTIMATED GFR I S NOT APPLICABLE FOR DIALYSIS PATIEN TS. CBC W/PLT COUNT & AUTO [id number] 12:23:00 Test Item Value Reference Range Interpretation Comments WHITE BLOOD CELL COUNT (BEAKER) 3.4 K/ L 3.5-10.5 L (test code = 775) RED BLOOD CELL COUNT (BEAKER) 4.14 M/ L 3.93-5.22 (test code = 761) HEMOGLOBIN (BEAKER) (test code = 11.8 GM/DL 11.2-15.7 410) HEMATOCRIT (BEAKER) (test code = 36.8 % 34.1-44.9 411) MEAN CORPUSCULAR VOLUME (BEAKER) 88.9 fL 79.4-94.8 (test code = 753) MEAN CORPUSCULAR HEMOGLOBIN 28.5 pg 25.6-32.2 (BEAKER) (test code = 751) MEAN CORPUSCULAR HEMOGLOBIN CONC 32.1 GM/DL 32.2-35.5 L (BEAKER) (test code = 752) RED CELL DISTRIBUTION WIDTH 15.5 % 11.7-14.4 H (BEAKER) (test code = 412) PLATELET COUNT (BEAKER) (test 303 K/CU MM 150-450 code = 756) MEAN PLATELET VOLUME (BEAKER) 10.5 fL 9.4-12.3 (test code = 754) NUCLEATED RED BLOOD CELLS 0 /100 WBC 0-0 (BEAKER) (test code = 413) NEUTROPHILS RELATIVE PERCENT 59 % (BEAKER) (test code = 429) LYMPHOCYTES RELATIVE PERCENT 22 % (BEAKER) (test code = 430) MONOCYTES RELATIVE PERCENT 16 % (BEAKER) (test code = 431) EOSINOPHILS RELATIVE PERCENT 2 % (BEAKER) (test code = 432) BASOPHILS RELATIVE PERCENT 1 % (BEAKER) (test code = 437) NEUTROPHILS ABSOLUTE COUNT 2.02 K/ L 1.56-6.13 (BEAKER) (test code = 670) LYMPHOCYTES ABSOLUTE COUNT 0.73 K/ L 1.18-3.74 L (BEAKER) (test code = 414) MONOCYTES ABSOLUTE COUNT (BEAKER) 0.53 K/ L 0.24-0.36 H (test code = 415) EOSINOPHILS ABSOLUTE COUNT 0.07 K/ L 0.04-0.36 (BEAKER) (test code = 416) BASOPHILS ABSOLUTE COUNT (BEAKER) 0.04 K/ L 0.01-0.08 (test code = 417) IMMATURE GRANULOCYTES-RELATIVE 0 % 0-1 PERCENT (BEAKER) (test code = 2801) [id number] 09:56:26964Bsnwrwob ObitgqyXUWTFYJWHN4640-97-37 09:56:00 26.3[facility] IxjeiouQTITBJYEOJ0546-92-33 09:56:009.2[facility]annCHEM PANEL 2017-01-11 09:50:0096[facility]annCHEM CGGGK7636-10-99 09:50:0024[facility]annCHEM GRDPX9037-01-13 09:50:008.1[facility]annCHEM LWEFY7216-88-34 09:50:000.60[facility]annCHEM INTNL1806-44-42 09:50:0015.0[facility] CHEM JJSWR1966-16-97 09:50:006[facility]annCHEM VIQCZ5008-38-62 09:50:99936 [facility]annCHE[facility] TMEGD9427-04-34 09:50:004.0[facility]annCHEM PANEL 2017-01-11 09:50:20104Zopnikwc HermannCHEM VJTIZ7546-36-19 09:50:0099[facility] PwmkzctRRESDANYAA9452-56-84 09:50:001.07[facility] LjbgskgMHDABIFUVV0212-31-53 09:50:00 Test Item Value Reference Range Interpretation Comments PT (test code = PT) 14.1 s 12.0-14.7 [facility] GsfhadnJPRMXWTYML0370-37-72 09:50:008.9[facility] HermannHEMATOLOGY 2017-01-11 09:50:002.92[facility] UbvparqYDANGCCVFQ5140-36-87 09:50:008.9[facility] TmisvffVMQEUFXOCF4298-65-43 09:50:0088.3[facility] NqkjkbmCVQGQKJQZE9636-25-47 09:50:0025.8[facility] QmvsjtvGCYKBOABEA3626-39-28 09:50:0015.4[facility] BTKRKCUUUY4183-71-70 09:50:0034.6[facility] FxmecacIZSTDOJJFJ8902-53-54 09:50:00 161[facility] HlqyqpkSPIKLNLDRG9691-84-00 09:50:00 Test Item Value Reference Range Interpretation Comments MCH (test code = MCH) 30.6 pg 27.0-31.0 [facility] MurozcaNWQLSMRMXQ5168-53-26 09:50:008.5[facility] HermannHEMATOLOGY 2017-01-11 09:50:005.4[facility] UzcbileYGGZIFOBVW9950-97-22 09:50:001.8[facility] VebgjrqKTOQUCYWRO1585-54-85 09:50:001.6[facility] CbohmazRVADSMUJLN0353-50-53 09:50:000.1[facility] IcnbcxmHDFCZYNMKT5903-06-98 09:50:000.6[facility] ALWPPTFDME4571-36-64 09:50:000.4[facility] AewwtlvOFFDVBNQBL0615-80-37 09:50:00 Normal (01/11/17 4:50 AM)[facility] UlnrjcuAGYZMUZYNS5737-42-10 09:50:00Normal (01/11/17 4:50 AM)[facility] MdietoxMKAYLJHOES0817-14-36 09:50:0061.3[facility] TphusexERTHOLERQX0328-46-89 09:50:0017.5[facility] UmldxeoPQLRRYHCVG8795-94-88 09:50:0020.2[facility] VqdohrbHMAANSNIRRCQ9511-49-66 10:38:007.8[facility] IDGQJCDHSSRK3017-38-56 10:38:0091[facility] BdlddpfGRDWWMVAEIRI2500-06-95 10:38:00 8.9[facility] QcvphqaDQZMGADTXDFF0150-11-27 10:38:0031[facility] HermannELECTROLYTES 2017-01-10 10:38:0097[facility] CvpoyjaAZTSPDGGCTPX8191-25-28 10:38:003.8[facility] VuqavrrAUNGEFWQUFWJ6676-16-42 10:38:37905Lmgiksjx SdvcmbbAQDEZQKEDATZ4515-68-72 10:38:0095[facility] YhljjxqXWCFVFRHDYVD1018-38-42 10:38:000.70[facility] LIMCEFFZRQTZ2839-73-50 10:38:006[facility] TuauptgTTACRCAAYL4713-38-78 10:38:00 15.4[facility] DpwhttmKFASVQAKTE1887-90-13 10:38:02978Vvcerwcx HermannHEMATOLOGY 2017-01-10 10:38:004.7[facility] NdnooueEIOFLQUNZX7716-09-03 10:38:00 Test Item Value Reference Range Interpretation Comments MCH (test code = MCH) 30.4 pg 27.0-31.0 [facility] VinwyrxUTNODUNZCD8673-13-49 10:38:0087.3[facility]annHEMATOLOGY 2017-01-10 10:38:0036.9[facility] ChvtkyrLPIONVSWFK8588-99-81 10:38:004.23[facility] XgdhdtlUZACUFFGBP1917-26-01 10:38:0012.9[facility] AfnyynqXTDXFLTEAI5410-80-29 10:38:0034.8[facility] MnetncgFHUZILOWIX2481-41-06 10:38:007.9[facility] IJRXNOAMLX5051-98-50 10:38:006.4[facility] ViejppqIRPKSENRIU8357-74-52 10:38:00 20.6[facility] XssrbrnVGPUCJJNUK0341-43-90 10:38:0038.0[facility] HermannHEMATOLOGY 2017-01-10 10:38:001.6[facility] RdxgutxPBVJFCNXOY5075-76-00 10:38:001.4[facility] LinxekkATQUEPJMYW6170-50-19 10:38:000.3[facility] ZkuovljOOATIVTOXA3741-90-03 10:38:001.8[facility] XsykmzsVFGGOBLUFR6404-33-31 10:38:001.0[facility] TSIMDUTUKU3009-68-63 10:38:000.1[facility] YviyeuoUANHYIIICM9726-00-95 10:38:00 Normal (01/10/17 5:38 AM)[facility] KcyeageCZABIGKZTV9493-90-31 10:38:00Normal (01/10/17 5:38 AM)[facility] GlvqoihQAUUERAVDU0537-43-35 10:38:0033.6[facility]annURINE AND AQRVT3596-07-94 10:38:00None Seen (01/10/17 5:38 AM)[facility] ATRBG8365-69-32 10:38:00Small *ABN*(01/10/17 5:38 AM)[facility] BHZZA9255-48-31 10:38:001[facility] STOOL 2017-01-10 10:38:00Negative (01/10/17 5:38 AM)[facility] STOOL 2017-01-10 10:38:00Negative *NA*(01/10/17 5:38 AM)[facility] STOOL 2017-01-10 10:38:00Negative (01/10/17 5:38 AM)[facility] STOOL 2017-01-10 10:38:000.2[facility] AND JFOZU2762-54-12 10:38:00Yellow *NA*(01/10/17 5:38 AM)[facility] ANYLK2916-98-77 10:38:00 Test Item Value Reference Range Interpretation Comments UA pH (test code = UA pH) 7.0 1 5.0-8.0 [facility] BGKOJ3210-12-81 10:38:00Negative (01/10/17 5:38 AM) [facility] XLMZM1111-72-82 10:38:00Negative *NA*(01/10/17 5:38 AM) [facility] UCWUN6002-17-31 10:38:00Negative (01/10/17 5:38 AM) [facility] NBAKP3359-57-19 10:38:00Clear (01/10/17 5:38 AM) [facility] DDQAG0228-16-98 10:38:00<=1.005 *NA*(01/10/17 5:38 AM)[facility] HermannSEDIMENTATION YUXZ3908-80-66 15:52:00 Test Item Value Reference Range Interpretation Comments SEDIMENTATION RATE, ERYTHROCYTE 48 mm/HR 0-30 H (BEAKER) (test code = 766) COMPREHENSIVE METABOLIC [id number] 14:48:00 Test Item Value Reference Range Interpretation Comments TOTAL PROTEIN 8.3 gm/dL 6.0-8.3 (BEAKER) (test code = 770) ALBUMIN (BEAKER) 4.0 g/dL 3.5-5.0 (test code = 1145) ALKALINE PHOSPHATASE 71 U/L 40-150 (BEAKER) (test code = 346) BILIRUBIN TOTAL 0.5 mg/dL 0.2-1.2 (BEAKER) (test code = 377) SODIUM (BEAKER) (test 133 meq/L 136-145 L code = 381) POTASSIUM (BEAKER) 3.4 meq/L 3.5-5.1 L (test code = 379) CHLORIDE (BEAKER) 95 meq/L 98-107 L (test code = 382) CO2 (BEAKER) (test 26 meq/L 22-29 code = 355) BLOOD UREA NITROGEN 5 mg/dL 7-21 L (BEAKER) (test code = 354) CREATININE (BEAKER) 0.65 mg/dL 0.57-1.25 (test code = 358) GLUCOSE RANDOM 130 mg/dL 70-105 H (BEAKER) (test code = 652) CALCIUM (BEAKER) 9.5 mg/dL 8.4-10.2 (test code = 697) AST (SGOT) (BEAKER) 31 U/L 5-34 (test code = 353) ALT (SGPT) (BEAKER) 22 U/L 6-55 (test code = 347) EGFR (BEAKER) (test 92 mL/min/1.73 ESTIMA REJI GFR IS code = 1092) sq m NOT ACCURATE CREATININE CLEARANCE IN PREDICTING GLOMERULAR FILTRATION RATE . ESTIMATED GFR I S NOT APPLICABLE FOR DIALYSIS PATIEN TS. CBC W/PLT COUNT & AUTO ONTDIZULBXBM0978-28-30 14:36:00 Test Item Value Reference Range Interpretation Comments WHITE BLOOD CELL COUNT (BEAKER) 6.3 K/ L 4.0-10.0 (test code = 775) RED BLOOD CELL COUNT (BEAKER) 4.13 M/ L 4.00-5.00 (test code = 761) HEMOGLOBIN (BEAKER) (test code = 13.4 GM/DL 12.0-15.0 410) HEMATOCRIT (BEAKER) (test code = 38.5 % 36.0-45.0 411) MEAN CORPUSCULAR VOLUME (BEAKER) 93.4 fL 82.0-99.0 (test code = 753) MEAN CORPUSCULAR HEMOGLOBIN 32.4 pg 27.0-33.0 (BEAKER) (test code = 751) MEAN CORPUSCULAR HEMOGLOBIN CONC 34.7 GM/DL 32.0-36.0 (BEAKER) (test code = 752) RED CELL DISTRIBUTION WIDTH 12.4 % 10.3-14.2 (BEAKER) (test code = 412) PLATELET COUNT (BEAKER) (test 279 K/CU MM 150-430 code = 756) MEAN PLATELET VOLUME (BEAKER) 7.9 fL 6.5-10.5 (test code = 754) NUCLEATED RED BLOOD CELLS 0 /100 WBC 0-0 (BEAKER) (test code = 413) NEUTROPHILS RELATIVE PERCENT 53 % (BEAKER) (test code = 429) LYMPHOCYTES RELATIVE PERCENT 25 % (BEAKER) (test code = 430) MONOCYTES RELATIVE PERCENT 17 % (BEAKER) (test code = 431) EOSINOPHILS RELATIVE PERCENT 4 % (BEAKER) (test code = 432) BASOPHILS RELATIVE PERCENT 1 % (BEAKER) (test code = 437) NEUTROPHILS ABSOLUTE COUNT 3.36 K/ L 1.80-8.00 (BEAKER) (test code = 670) LYMPHOCYTES ABSOLUTE COUNT 1.59 K/ L 1.48-4.50 (BEAKER) (test code = 414) MONOCYTES ABSOLUTE COUNT (BEAKER) 1.07 K/ L 0.00-1.30 (test code = 415) EOSINOPHILS ABSOLUTE COUNT 0.24 K/ L 0.00-0.50 (BEAKER) (test code = 416) BASOPHILS ABSOLUTE COUNT (BEAKER) 0.04 K/ L 0.00-0.20 (test code = 417) 0.00CHEM KGXJA8060-36-09 12:51:007[facility]annCHEM HKUZS6916-95-83 12:51:00 43.0[facility] HermannCHEM FNSHD4384-48-63 12:51:18166Zaeqncyi HermannCHEM PANEL 2015-05-30 12:51:39889Vkemsjzb HermannCHEM CIOMW9388-09-33 12:51:0093[facility]annCHEM YWRSN8567-81-22 12:51:004.1[facility]annCHEM AAESE3032-89-75 12:51:0014.6[facility] HermannCHEM OBRET8850-62-59 13:20:009[facility]annCHEM UFXIT0146-34-46 13:20:0095[facility]annCHEM WYMPH4146-50-98 13:20:004.9 [facility]annCHEM EGUYR0276-43-07 13:20:78534Vkehfude HermannCHEM PANEL 2015-02-28 13:20:0044.0[facility] HermannCHEM FQAZX9850-31-91 13:20:0015.0[facility] HermannCHEM OGFJR8659-15-54 13:20:45104Inunlopb MmqoqrqOINJRSKLHO8942-42-87 13:18:001.0[facility] DjfvmekCWPOESVEMT7056-23-88 13:18:00 Test Item Value Reference Range Interpretation Comments POC PT (test code = POC PT) 11.9 s 12.0-14.7 [facility]
--- NOTE | 2020-10-18 11:41 | RAD REPORT ---
EXAM DESCRIPTION: RAD - Chest Single View - 10/18/2020 11:12 am CLINICAL HISTORY: COUGH COMPARISON: Chest 05/03/2019 TECHNIQUE: AP portable chest image was obtained 10/18/2020 11:12 am . FINDINGS: Lungs are clear.Lung pattern matches comparison. Heart and vasculature are normal. No neel urable pleural effusion and no pneumothorax. No acute bony abnormality seen. No acute aortic findings suspected. IMPRESSION: No acute cardiopulmonary process.
--- NOTE | 2020-10-18 12:03 | EDPHYS ---
Physician Documentation [facility] Name: Linda Miramontes Age: 69 yrs Sex: Female : 1950 Arrival Date: 10/18/2020 Time: 10:24 Bed 5 Private MD: ED Physician Klaus Gil HPI: 10/18 11:53 This 69 yrs old Female presents to ER via Ambulatory with complaints of Sore shelia Throat, Cough. 11:53 The patient presents with sore throat. The patient describes throat pain as burning, shelia constant. Onset: The symptoms/episode began/occurred 7 day(s) ago. Severity of symptoms: At their worst the symptoms were mild, in the emergency department the symptoms are unchanged. Modifying factors: The symptoms are alleviated by nothing, the symptoms are aggravated by nothing. Associated signs and symptoms: Pertinent positives: cough, rhinorrhea, Sore throat. The patient has experienced similar episodes in the past, a few times. Historical: - Allergies: 10:34 Bactrim (Facial Swelling); ll1 10:34 Codeine; ll1 - PMHx: 10:34 Cirrhosis; Diabetes - NIDDM; Hepatitis; Hypertension; Lupus; Migraines; Pneumonia; ll1 Polio; Raynauds; Sepsis; Sjogrenes; GERD; - PSHx: 10:34 Right knee replacement; Left shoulder; Cholecystectomy; ll1 - Immunization history:: Client reports receiving the 2nd dose of the Covid vaccine, Flu vaccine is up to date. - Social history:: Smoking status: Patient denies any tobacco usage or history of. ROS: 11:55 Constitutional: Negative for fever, chills, and weight loss, Eyes: Negative for injury, shelia pain, redness, and discharge, Neck: Negative for injury, pain, and swelling, Cardiovascular: Negative for chest pain, palpitations, and edema, Respiratory: Negative for shortness of breath, cough, wheezing, and pleuritic chest pain, Abdomen/GI: Negative for abdominal pain, nausea, vomiting, diarrhea, and constipation, Back: Negative for injury and pain, : Negative for injury, bleeding, discharge, and swelling, MS/Extremity: Negative for injury and deformity, Skin: Negative for injury, rash, and discoloration, Neuro: Negative for headache, weakness, numbness, tingling, and seizure, Psych: Negative for depression, anxiety, suicide ideation, homicidal ideation, and hallucinations, Allergy/Immunology: Negative for hives, rash, and allergies, Endocrine: Negative for neck swelling, polydipsia, polyuria, polyphagia, and marked weight changes, Hematologic/Lymphatic: Negative for swollen nodes, abnormal bleeding, and unusual bruising. 11:55 ENT: Positive for hoarseness, rhinorrhea. Exam: 11:55 Constitutional: This is a well developed, well nourished patient who is awake, alert, shelia and in no acute distress. Head/Face: Normocephalic, atraumatic. Eyes: Pupils equal round and reactive to light, extra-ocular motions intact. Lids and lashes normal. Conjunctiva and sclera are non-icteric and not injected. Cornea within normal limits. Periorbital areas with no swelling, redness, or edema. ENT: Nares patent. No nasal discharge, no septal abnormalities noted. Tympanic membranes are normal and external auditory canals are clear. Oropharynx with no redness, swelling, or masses, exudates, or evidence of obstruction, uvula midline. Mucous membranes moist. Neck: Trachea midline, no thyromegaly or masses palpated, and no cervical lymphadenopathy. Supple, full range of motion without nuchal rigidity, or vertebral point tenderness. No Meningismus. Chest/axilla: Normal chest wall appearance and motion. Nontender with no deformity. No lesions are appreciated. Cardiovascular: Regular rate and rhythm with a normal S1 and S2. No gallops, murmurs, or rubs. Normal PMI, no JVD. No pulse deficits. Respiratory: Lungs have equal breath sounds bilaterally, clear to auscultation and percussion. No rales, rhonchi or wheezes noted. No increased work of breathing, no retractions or nasal flaring. Abdomen/GI: Soft, non-tender, with normal bowel sounds. No distension or tympany. No guarding or rebound. No evidence of tenderness throughout. Back: No spinal tenderness. No costovertebral tenderness. Full range of motion. Skin: Warm, dry with normal turgor. Normal color with no rashes, no lesions, and no evidence of cellulitis. MS/ Extremity: Pulses equal, no cyanosis. Neurovascular intact. Full, normal range of motion. Neuro: Awake and alert, GCS 15, oriented to person, place, time, and situation. Cranial nerves II-XII grossly intact. Motor strength 5/5 in all extremities. Sensory grossly intact. Cerebellar exam normal. Normal gait. Psych: Awake, alert, with orientation to person, place and time. Behavior, mood, and affect are within normal limits. 11:55 Respiratory: the patient does not display signs of respiratory distress, Respirations: normal, Breath sounds: are clear throughout, no acute changes, Respiratory rate: 16 Vital Signs: 10:30 BP 166 / 85; Pulse 65; Resp 16; Temp 97.0; Pulse Ox 99% ; Weight 83.91 kg; Height 5 ft. ll1 6 in. (167.64 cm); Pain 4/10; 12:35 BP 121 / 54; Pulse 67; Resp 20 S; Pulse Ox 96% ; kg 10:30 Body Mass Index 29.86 (83.91 kg, 167.64 cm) ll1 MDM: 10:39 Patient medically screened. [facility] 11:58 Differential diagnosis: Allergic rhinitis, gastroesophageal reflux disease, influenza, shelia laryngitis, pharyngitis, tonsillitis, upper respiratory infection. Data reviewed: vital signs, nurses notes, radiologic studies, plain films. 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 10/18 10:43 Order name: Chest Single View XRAY [facility] Administered Medications: 12:24 Not Given (Other Intervention Used): PriLOSEC (omeprazole) 40 mg PO once; swallow whole iw (do not crush or chew) OR open capsule, sprinkle contents over tablespoonful applesauce; swallow all immediately/do not chew pellets 12:33 Drug: Zithromax (azithromycin) 500 mg Route: PO; kg 12:38 Follow up: Response: No adverse reaction kg 12:33 Drug: Decadron (dexamethasone) 4 mg Route: PO; kg 12:38 Follow up: Response: No adverse reaction kg 12:33 Drug: ProTONIX (pantoprazole) 40 mg Route: PO; kg 12:38 Follow up: Response: No adverse reaction kg Disposition: 10/18/20 12:02 Discharged to Home. Impression: Acute laryngitis, Type 2 diabetes mellitus, Gastro-esophageal reflux disease, Unspecified cirrhosis of liver. - Condition is Stable. - Discharge Instructions: Laryngitis, Upper Respiratory Infection, Adult, Upper Respiratory Infection, Adult, Wrze-ob-Mftq, Laryngitis, Vxxm-at-Tptq. - Prescriptions for dexamethasone 2 mg Oral tablet - take 1 tablet by ORAL route 2 times per day; 10 tablet. Protonix 40 mg Oral Tablet - take 1 tablet by ORAL route once daily; 30 tablet. Zithromax Z- Delroy 250 mg Oral Tablet - take 1 tablet by ORAL route as directed for 5 days Day 1 - take two (2) tablets one time. Day 2, 3, 4 , 5 take one (1) tablet once daily.; 6 tablet. - Medication Reconciliation Form, Thank You Letter, Antibiotic Education, Prescription Opioid Use form. - Follow up: Private Physician; When: 2 - 3 days; Reason: Recheck today's complaints, Continuance of care, Re-evaluation by your physician. Follow up: Ngozi Hanley MD; When: 2 - 3 days; Reason: Recheck today's complaints, Re-evaluation by your physician. - Problem is new. - Symptoms have improved. Signatures: Dispatcher [employer] EDMI Klaus Gil MD MD cha Williams, Irene, RN RN iw Elena Sanches RN RN ll1 Edilma España RN RN kg Corrections: (The following items were deleted from the chart) 12:46 12:02 10/18/2020 12:02 Discharged to Home. Impression: Acute laryngitis; Type 2 kg diabetes mellitus; Gastro-esophageal reflux disease; Unspecified cirrhosis of liver. Condition is Stable. Forms are Medication Reconciliation Form, Thank You Letter, Antibiotic Education, Prescription Opioid Use. Follow up: Private Physician; When: 2 - 3 days; Reason: Recheck today's complaints, Continuance of care, Re-evaluation by your physician. Follow up: Ngozi Hanley; When: 2 - 3 days; Reason: Recheck today's complaints, Re-evaluation by your physician. Problem is new. Symptoms have improved. shelia
--- NOTE | 2020-10-18 12:03 | ER ---
Nurse's Notes [facility] Name: Linda Miramontes Age: 69 yrs Sex: Female : 1950 Arrival Date: 10/18/2020 Time: 10:24 Bed 5 Private MD: Diagnosis: Acute laryngitis;Type 2 diabetes mellitus;Gastro-esophageal reflux disease;Unspecified cirrhosis of liver Presentation: 10/18 10:30 Chief complaint: Patient states: Cough and loosing voice for 10 days. No fever. ll1 Coronavirus screen: Client denies travel out of the [place] in the last 14 days. At this time, the client does not indicate any symptoms associated with coronavirus-19. Coronavirus screen: cough unrelated to allergies, fatigue, Client presents with at least one sign or symptom that may indicate coronavirus-19. Standard/surgical mask placed on the client. Ebola Screen: Patient denies travel to an Ebola-affected area in the 21 days before illness onset. Initial Sepsis Screen: Does the patient meet any 2 criteria? No. Patient's initial sepsis screen is negative. Does the patient have a suspected source of infection? Yes: Productive cough/pneumonia. Risk Assessment: Do you want to hurt yourself or someone else? Patient reports no desire to harm self or others. Onset of symptoms was October 08, 2020. 10:30 Method Of Arrival: Ambulatory ll1 10:30 Acuity: JOBY 4 ll1 Historical: - Allergies: 10:34 Bactrim (Facial Swelling); ll1 10:34 Codeine; ll1 - PMHx: 10:34 Cirrhosis; Diabetes - NIDDM; Hepatitis; Hypertension; Lupus; Migraines; Pneumonia; ll1 Polio; Raynauds; Sepsis; Sjogrenes; GERD; - PSHx: 10:34 Right knee replacement; Left shoulder; Cholecystectomy; ll1 - Immunization history:: Client reports receiving the 2nd dose of the Covid vaccine, Flu vaccine is up to date. - Social history:: Smoking status: Patient denies any tobacco usage or history of. Screenin:36 Abuse screen: Denies threats or abuse. Denies injuries from another. Nutritional kg screening: No deficits noted. Tuberculosis screening: No symptoms or risk factors identified. Fall Risk None identified. No fall in past 12 months (0 pts). No secondary diagnosis (0 pts). No IV (0 pts). Ambulatory Aid- None/Bed Rest/Nurse Assist (0 pts). Gait- Normal/Bed Rest/Wheelchair (0 pts) Mental Status- Oriented to own ability (0 pts). Total Camargo Fall Scale indicates No Risk (0-24 pts). Assessment: 12:33 General: Appears in no apparent distress. Behavior is calm, cooperative, appropriate kg for age, quiet. Pain: Denies pain. Neuro: No deficits noted. Cardiovascular: No deficits noted. Respiratory: No deficits noted. Airway is patent Trachea midline Respiratory effort is even, unlabored, relaxed, Breath sounds are clear bilaterally. GI: No deficits noted. : No deficits noted. EENT: Throat is reddened loss of voice. Derm: No deficits noted. Vital Signs: 10:30 BP 166 / 85; Pulse 65; Resp 16; Temp 97.0; Pulse Ox 99% ; Weight 83.91 kg; Height 5 ft. ll1 6 in. (167.64 cm); Pain 4/10; 12:35 BP 121 / 54; Pulse 67; Resp 20 S; Pulse Ox 96% ; kg 10:30 Body Mass Index 29.86 (83.91 kg, 167.64 cm) ll1 ED Course: 10:24 Patient arrived in ED. as 10:33 Triage completed. ll1 10:34 Arm band placed on Patient placed in an exam room, on a stretcher. ll1 10:38 Klaus Gil MD is Attending Physician. shelia 11:12 Chest Single View XRAY In Process Unspecified. EDMS 12:00 Ngozi Hanley MD is Referral Physician. shelia 12:20 Edilma España, ASHWIN is Primary Nurse. kg 12:37 Patient has correct armband on for positive identification. kg 12:37 No provider procedures requiring assistance completed. Patient did not have IV access kg during this emergency room visit. Administered Medications: 12:24 Not Given (Other Intervention Used): PriLOSEC (omeprazole) 40 mg PO once; swallow whole iw (do not crush or chew) OR open capsule, sprinkle contents over tablespoonful applesauce; swallow all immediately/do not chew pellets 12:33 Drug: Zithromax (azithromycin) 500 mg Route: PO; kg 12:38 Follow up: Response: No adverse reaction kg 12:33 Drug: Decadron (dexamethasone) 4 mg Route: PO; kg 12:38 Follow up: Response: No adverse reaction kg 12:33 Drug: ProTONIX (pantoprazole) 40 mg Route: PO; kg 12:38 Follow up: Response: No adverse reaction kg Outcome: 12:02 Discharge ordered by MD. bass 12:37 Discharged to home ambulatory. kg 12:37 Condition: good 12:37 Discharge instructions given to patient, Instructed on discharge instructions, follow up and referral plans. Demonstrated understanding of instructions, Prescriptions given X 3. 12:46 Patient left the ED. kg Signatures: Dispatcher [employer] EDMS Klaus Gil MD MD cha Martinez, Elena Rush RN RN ll1 Edilma España RN RN Mandy Sanon RN iw
[2020-10-18] MEDS ORDERED: AZITHROMYCIN 250 MG TAB ONE (12:44)
[2020-10-18] MEDS ORDERED: dexAMETHasone 4 MG TAB ONE (12:44)
[2020-10-18] MEDS ORDERED: PANTOPRAZOLE 40MG TABLET PO ONE (12:46)
[2020-10-18 13:24] VITALS: TEMP 97
[2020-10-18 13:26] VITALS: BP 121/54; O2SAT 96
== END 2020-10-18 12:46 | disposition home or self-care (01) ==
LOC: ER 10:20
DX: J04.0 Acute laryngitis (principal); K21.9 Gastro-esophageal reflux disease without esophagitis; K74.60 Unspecified cirrhosis of liver; E11.9 Type 2 diabetes mellitus without complications; I10 Essential (primary) hypertension; Z88.1 Allergy status to other antibiotic agents; Z88.5 Allergy status to narcotic agent
CPT/HCPCS: 71045; 99283; J8540

== ENCOUNTER 2021-07-03 15:53 | Emergency (ER) | payer OTHER ==
--- OUTSIDE RECORDS SUMMARY | 2021-07-03 16:00 | XMS REPORT | Continuity of Care Document ---
:1950 Author Organization [facility] t Address [address] [place] [address] Care Team Providers Name Role Phone Melissa Attending Clinician Unavailable [email or web address] Attending Clinician Unavailable Deven Capps Attending Clinician [phone] JUAN CARLOS Attending Clinician Unavailable MADELYN Attending Clinician Unavailable CATALINO Attending Clinician Unavailable MD Mile BAE Attending Clinician Unavailable FCO GREEN Attending Clinician Unavailable MD Paula JOSHI Attending Clinician Unavailable Barron Garcia Attending Clinician Lab, Fam Pob I Attending Clinician Unavailable Sara VELAZQUEZ Attending Clinician SARA Attending Clinician Unavailable DIANE Attending Clinician Unavailable Shaila Youssef DO Attending Clinician Shaila YOUSSEF Attending Clinician Unavailable Deandre WARREN, P Attending Clinician MIKAEL Attending Clinician Unavailable Hi Chandler Attending Clinician Keenan WARREN Attending Clinician Pob[facility], [facility] Attending Clinician Unavailable KEENAN Attending Clinician Unavailable Barron RONDON Attending Clinician Unavailable KARMEN CAPPS Attending Clinician Unavailable Hi JOSHI Attending Clinician Unavailable [email or web address]_I Admitting Clinician Unavailable CATALINO Admitting Clinician Unavailable MD Deven BAE. Admitting Clinician Unavailable MD Paula JOSHI Admitting Clinician Unavailable Payers Payer Name Policy Type Policy Number Effective Date Expiration Date [place] (MEDICARE [id number] 2021 REPLACEMENT PPO) 00:00:00 AETLULI MEDICARE ADV [id number] 2013 00:00:00 Problems Condition Condition Condition Status Onset Resolution Last Treating Co mments Source Name Details Category Date Date Treatment Clinician Date Hypertensi Hypertensi Disease Active U nivers ve ve 4-08 ity of urgency, urgency, 00:00: [place] malignant malignant 00 [facility] Branch Shortness Shortness Disease Active Uni vers of breath of breath 4-08 ity of 00:00: Medical Branch Acute Acute Disease Active Univers viral viral 4-08 ity of syndrome syndrome 00:00: Medical Branch Hypertensi Hypertensi Disease Active U nivers ve ve 4-08 ity of urgency, urgency, 00:00: [place] malignant malignant 00 [facility] Branch N/A Diagnosis Active 2017-01-07 Mem oria 01-06 11:27:00 l N/A 00:00: [place] 00 Active 01/06/2017 [facility] M17.11 Diagnosis Active 2017-01-17 Mem oria 914 22:05:00 l M17.11 00:00: [place] 00 Active 01/06/2017 [facility] RIGHT KNEE Diagnosis Active 2017-01-07 Memoria DJD 10-12 13:22:00 l RIGHT 00:00: [place] KNEE DJD 00 Active 10/12/2016 [facility] S83.281A Diagnosis Active 2015-05-30 M emoria RIGHT KNEE 05-27 06:38:00 l TORN S83.281A 00:00: Jonathan n MENISCUS RIGHT KNEE 00 TORN MENISCUS Active 05/27/2015 [facility] LEFT Diagnosis Active 2014-042015-02-28 Mem oria SHOULDER 0- 06:45:00 l ROTATOR LEFT 00:00: [place] CUFF TEAR SHOULDER 00 ROTATOR CUFF TEAR Active 02/19/2015 [facility] Obesity Obesity Disease Active Overview: Univ ers 6-18 ICD10 ity of 00:00: Diagnosis [place] Term 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 Branch Utility 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 6-18 ity of 00:00: [place] 00 Medical Branch Diabetes Diabetes Disease Active Overview: Un ebony mellitus mellitus 6-18 ICD10 ity of type 2, type 2, 00:00: Diagnosis [place] uncontroll uncontroll 00 Term Me dical ed, ed, Sourcing Manager Branch without without Utility complicati complicati ons ons Physical Physical Disease Active 2011-04 [facility] r deconditio deconditio 0-24 Co llege henna henna 00:00: of 00 Medicin e Lumbar Lumbar Disease Active [place] spondylosi spondylosi 7-15 Co llege s s 00:00: of 00 Medicin e LBP (low LBP (low Disease Active [facility] back pain) back pain) 6-03 Co llege 00:00: of 00 Medicin e HYPERPARAT HYPERPARAT Disease Active [facility] HYROIDISM HYROIDISM 18 [place] 00:00: of 00 Medicin e DIABETES DIABETES Disease Active [facility] r MELLITUS, MELLITUS, 18 [place] TYPE II, TYPE II, 00:00: of CONTROLLED CONTROLLED 00 Me dicin e Diverticul Problem Active 2017-01-15 M emoria itis 01:52:57 l (disorder) Jonathan n Diverticul itis (disorder) Active Problem 01/15/2017 [facility] Gastropare Problem Active 2017-01-15 emoria sis 01:52:57 l (disorder) Jonathan n Gastropare sis (disorder) Active Problem 01/15/2017 [facility] Inflammato Problem Active 2017-01-15 M emoria ry disease 01:52:57 l of liver [place] (disorder) 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 01/15/2017 auto immune [facility] Motility, Problem Active 2017-01-15 Sd moria function 01:52:57 l (observabl Jonathan n e entity) Motility, function (observabl e entity) Active Problem 01/15/2017 [facility] Rheumatoid Problem Active 2017-01-15 M emoria arthritis 01:52:57 l (disorder) Jonathan n Rheumatoid arthritis (disorder) Active Problem 01/15/2017 [facility] Osteoarthr Problem Active 2017-01-15 M emoria itis 01:52:57 l (disorder) Jonathan n Osteoarthr itis (disorder) Active Problem 01/15/2017 [facility] UNILATERAL Diagnosis Active 2017-01-17 Memoria PRIMARY 22:05:00 l OSTEOARTHR Jonathan n ITIS, UNILATERAL RIGHT PRIMARY OSTEOARTHR ITIS, RIGHT Active [facility] Anxiety Problem Resolve 2017-01-15 Mem oria (finding) d 01:52:57 l Anxiety [place] (finding) Resolved Problem 01/15/2017 [facility] Hypertensi Problem Resolve 2017-01-15 Memoria ve d 01:52:57 l disorder, [place] systemic Hypertensi arterial ve (disorder) disorder, systemic arterial (disorder) Resolved Problem 01/15/2017 [facility] Neuropathy Problem Resolve 2017-01-15 Memoria (disorder) d 01:52:57 l [place] Neuropathy (disorder) Resolved Problem 01/15/2017 [facility] Allergies, Adverse Reactions, Alerts Allergy Allergy Status Severity Reaction(s) Onset Inactive Treating Comm ents Source Name Type Date Date Clinician Codeine Propensi Active Other - See Un ebony ty to comments 18 ity of adverse 00:00: [place] reaction 00 Medical s Branch Penicill Propensi Active Other - See U nivers ins ty to comments 618 ity of adverse 00:00: [place] reaction 00 Medical s Branch CODEINE DRUG Active Other-Cmnt Unive rs INGREDI 6-18 ity of 00:00: [place] 00 Medical Branch PENICILL Drug Active Other-Cmnt Univ ers INS Class 6-18 ity of 00:00: [place] 00 Medical Branch Ge Propensi Active 2005-0 BIAXIN. [place] Uncoded ty to 01-10 [place] Allergy adverse 00:00: of reaction 00 Medicin s e Bactrim Bactrim Active Memoria l [place] codeine codeine Active Memoria sulfate sulfate l [place] Social History Social Habit Start Date Stop Date Quantity Comments Source Exposure to Not sure University of SARS-CoV-2 [place] [facility] (event) Branch Alcohol Comment Alcoholic [facility] llege of Drinks/day: no Medicine Sex Assigned At [facility] llege of Medicine Alcohol intake 2019-08-05 2019-08-05 Current drinker Unive rsity of 00:00:00 00:00:00 of alcohol [place] [facility] (finding) Branch Social History 2017-01-10 2017-01-10 [facility] rancho 17:39:08 17:39:08 Smoking Status Start Date Stop Date Source Never smoker [facility] o f Medicine Medications Ordered Filled Start Stop Current Ordering Indication Dosage Frequency Signature Comments Components Source Medication Medication Date Date Medication? Clinician (SIG) Name Name cloNIDine 2020-0 Yes [id number] .1mg Take 1 U nivers 0.1 mg 4-08 tablet by ity of tablet 00:00: mouth 3 [place] (three) Medical times Branch daily. Take 0.1mg TID if BP > 150/90. hydroCHLORO 2020-0 Yes [id number] 25mg Take 1 Univers thiazide 25 4-08 tablet by ity of mg tablet 00:00: mouth [place] 00 every Medical morning Branch and evening. acetaminoph 2020-0 Yes [id number] 650mg Take 1 Univers en 650 mg 4-08 tablet by ity o f CR tablet 00:00: mouth [place] 00 every 8 Medical (eight) Branch hours as needed for Pain or Fever. Miscellaneo 2020-0 Yes [id number] I10 - U nivers [facility] 07-31 Dispense ity o f Supply Kit 00:00: blood [place] 00 pressure Medical cuff (any Branch brand), take BP at home BID cloNIDine 2020-0 Yes [id number] .1mg Take 1 Un ebony 0.1 mg 4-08 tablet by ity of tablet 00:00: mouth 3 (three) Medical times Branch daily. Take 0.1mg TID if BP > 150/90. hydroCHLORO 2020-0 Yes [id number] 25mg Take 1 Univers thiazide 25 4-08 tablet by ity of mg tablet 00:00: mouth [place] 00 every Medical morning Branch and evening. acetaminoph 2020-0 Yes [id number] 650mg Take 1 Univers en 650 mg 4-08 tablet by ity o f CR tablet 00:00: mouth [place] 00 every 8 Medical (eight) Branch hours as needed for Pain or Fever. Miscellaneo 2020-0 Yes [id number] I10 - U nivers [facility] 07-31 Dispense ity o f Supply Kit 00:00: blood [place] 00 pressure Medical cuff (any Branch brand), take BP at home BID cloNIDine 2020-0 Yes [id number] .1mg Take 1 Un ebony 0.1 mg 4-08 tablet by ity of tablet 00:00: mouth 3 [place] 00 (three) Medical times Branch daily. Take 0.1mg TID if BP > 150/90. hydroCHLORO 2020-0 Yes [id number] 25mg Take 1 Univers thiazide 25 4-08 tablet by ity of mg tablet 00:00: mouth [place] 00 every Medical morning Branch and evening. acetaminoph 2020-0 Yes [id number] 650mg Take 1 Univers en 650 mg 4-08 tablet by ity o f CR tablet 00:00: mouth [place] 00 every 8 Medical (eight) Branch hours as needed for Pain or Fever. Miscellaneo 2020-0 Yes [id number] I10 - U Hard 8 [employer] [facility] 07-31 Dispense ity o f Supply Kit 00:00: blood [place] 00 pressure Medical cuff (any Branch brand), take BP at home BID cloNIDine 2020-0 Yes [id number] .1mg Take 1 Un ebony 0.1 mg 4-08 tablet by ity of tablet 00:00: mouth (three) Medical times Branch daily. Take 0.1mg TID if BP > 150/90. hydroCHLORO 2020-0 Yes [id number] 25mg Take 1 Univers thiazide 25 4-08 tablet by ity of mg tablet 00:00: mouth [place] 00 every Medical morning Branch and evening. acetaminoph 2020-0 Yes [id number] 650mg Take 1 Univers en 650 mg 4-08 tablet by ity o f CR tablet 00:00: mouth [place] 00 every 8 Medical (eight) Branch hours as needed for Pain or Fever. Miscellaneo 2020-0 Yes [id number] I10 - U Hard [employer] [facility] 07-31 Dispense ity o f Supply Kit 00:00: blood [place] 00 pressure Medical cuff (any Branch brand), take BP at home BID cloNIDine 2020-0 Yes [id number] .1mg Take 1 Un ebony 0.1 mg 4-08 tablet by ity of tablet 00:00: mouth 3 (three) Medical times Branch daily. Take 0.1mg TID if BP > 150/90. hydroCHLORO 2020-0 Yes [id number] 25mg Take 1 Univers thiazide 25 4-08 tablet by ity of mg tablet 00:00: mouth [place] 00 every Medical morning Branch and evening. acetaminoph 2020-0 Yes [id number] 650mg Take 1 Univers en 650 mg 4-08 tablet by ity o f CR tablet 00:00: mouth [place] 00 every 8 Medical (eight) Branch hours as needed for Pain or Fever. Miscellaneo 2020-[id number] 07-31 Dispense ity o f Supply Kit 00:00: blood [place] 00 pressure Medical cuff (any Branch brand), take BP at home BID cloNIDine 2020-0 Yes [id number] .1mg Take 1 U nivers 0.1 mg 4-08 tablet by ity of tablet 00:00: mouth 3 (three) Medical times Branch daily. Take 0.1mg TID if BP > 150/90. hydroCHLORO 2020-0 Yes [id number] 25mg Take 1 Univers thiazide 25 4-08 tablet by ity of mg tablet 00:00: mouth [place] 00 every Medical morning Branch and evening. acetaminoph 2020-0 Yes [id number] 650mg Take 1 Univers en 650 mg 4-08 tablet by ity o f CR tablet 00:00: mouth [place] 00 every 8 Medical (eight) Branch hours as needed for Pain or Fever. Miscellaneo 2020-[id number] 07-31 Dispense ity o f Supply Kit 00:00: blood [place] 00 pressure Medical cuff (any Branch brand), take BP at home BID cloNIDine 2020-0 Yes [id number] .1mg Take 1 U nivers 0.1 mg 4-08 tablet by ity of tablet 00:00: mouth 3 (three) Medical times Branch daily. Take 0.1mg TID if BP > 150/90. hydroCHLORO 2020-0 Yes [id number] 25mg Take 1 Univers thiazide 25 4-08 tablet by ity of mg tablet 00:00: mouth [place] 00 every Medical morning Branch and evening. acetaminoph 2020-0 Yes [id number] 650mg Take 1 Univers en 650 mg 4-08 tablet by ity o f CR tablet 00:00: mouth [place] 00 every 8 Medical (eight) Branch hours as needed for Pain or Fever. Miscellaneo 2020-[id number] 07-31 Dispense ity o f Supply Kit 00:00: blood [place] 00 pressure Medical cuff (any Branch brand), take BP at home BID Acetaminoph 2017-0 Yes 1 tab, PO, Memoria en 325 MG / 9-20 Q4H, PRN l Hydrocodone 15:07: for pain, H [place] Bitartrate 00 X 14 day, 10 MG Oral # 84 tab, Tablet 0 [[place] Refill(s), ] called to pharmacy Cephalexin Yes [...] PO, l oral tablet 15:07: Bedtime, 0 [place] 00 Refill(s) cetirizine Yes 5 mg = 1 Mem oria 5 mg oral 9-20 tab, PO, l tablet 15:07: Daily, 0 [place] 00 Refill(s) Dilaudid No 0.2 mg, Memori a 01-11 Route: l 17:48: IVP, [place] 00 Q15Min, Dosing Weight 84.091, kg, PRN Pain Score 7-10, Start date: 01/11/17 12:48:00 CDT, Duration: 30 day, Stop date: 02/10/17 12:47:00 CDT Furosemide No Notes: Memor ia 01-11 (Same as: l 14:00: Lasix) [place] 00 May cause GI upset. Give with food or milk. Omeprazole No 40 mg, Memor ia 01-11 Route: PO, l 14:00: Daily, Dosing Weight 84.091, kg, Start date: 01/11/17 9:00:00 CDT, Duration: 30 day, Stop date: 02/09/17 9:00:00 CDT Zyrtec No 5 mg, Memoria 01-11 Route: PO, l 14:00: Daily, [place] 00 Dosing Weight 84.091, kg, Start date: 01/11/17 9:00:00 CDT, Duration: 30 day, Stop date: 02/09/17 9:00:00 CDT Provigil No Notes: Memoria 9-19 (Same l 14:00: as:Provigi l) Lovenox No Notes: Memoria 9-19 (Same as: l 13:00: Lovenox) Potassium No Notes: Memori a Chloride - (Same as: l 13:00: K-Dur 20) "Do Not Crush" With food and full glass of water Xanax No Notes: Memoria 9-19 With food l 02:45: or milk (Same as: Xanax) Lexapro No Notes: Memoria 9-19 (Same as: l 02:00: Lexapro) senna 8.6 No Notes: Memori a mg oral 01-11 (Same as: l tablet 02:00: Senokot) Losartan No Notes: Memoria 9-19 (Same as: l 02:00: Cozaar) Zyrtec No Notes: Memoria 9-19 (Same As: l 02:00: Zyrtec) famotidine No Notes: Memor ia - (Same as: l 02:00: Pepcid) Protonix No Notes: Memoria 9-19 Tablet l 02:00: should not be chewed or crushed. (Same as: Protonix) zolpidem No Notes: Memoria 9-19 (Same As: l 01:43: Ambien) Sodium No 250 mL, Memoria Chloride 01-11 Route: l 0.9% IV 01:02: IVPB, Start date: 01/10/17 20:02:00 CDT, Duration: 30 day, Stop date: 02/09/17 20:01:00 CDT, PRN Line Flush BD Normal No Notes: Memori a Saline 01-11 (Same as: l Flush 01:02: BD [place] Posiflush) Docusate No Notes: Memoria Sodium 100 01-10 (Same as: l MG Oral 22:00: Colace) [place] Capsule (Do Not [Colace] Crush) Alprazolam No Notes: Memor ia 0.5 MG Oral 01-10 With food l Tablet 22:00: or milk [place] [Xanax] (Same as: Xanax) Hyoscyamine No Notes: Sunday tressa 01-10 (Same as: l 22:00: Levsin) [place] 00 Take 30 min before meal Metformin No Notes: Memori a hydrochlori 01-10 (Same as: l de 500 MG 22:00: Glucophage He rmann Oral Tablet ) Take with meal Zantac No 150 mg, Memoria 01-10 Route: PO, l 22:00: BID, Dosing Weight 84.091, kg, Start date: 01/10/17 17:00:00 CDT, Duration: 30 day, Stop date: 02/09/17 9:00:00 CDT gabapentin No 100 mg, Sunday tressa 01-10 Route: PO, l 22:00: TID, Dosing Weight 84.091, kg, Start date: 01/10/17 17:00:00 CDT, Duration: 30 day, Stop date: 02/09/17 13:00:00 CDT Reglan No Notes: Memoria 01-10 (Same as: l 21:30: Reglan) [place] Take 30 min before meals ceFAZolin No Notes: Memori a 01-10 Same as: l 21:00: Ancef glucagon No 1 mg, Memoria 01-10 Route: IM, l 19:49: Drug form: [place] 00 PDR/INJ, PRN, PRN Blood Glucose Results, Start date: 01/10/17 14:49:00 CDT, Duration: 30 day, Stop date: 02/09/17 14:48:00 CDT Dextrose No 25 mL, Memoria 50% in 01-10 Route: l Water IV 19:48: IVP, Start Her date: 01/10/17 14:48:00 CDT, Duration: 30 day, Stop date: 02/09/17 14:47:00 CDT, PRN Blood Glucose Results Dextrose No 50 mL, Memoria 50% in 01-10 Route: l Water IV 19:47: IVP, Start Her mccurdy 00 date: 01/10/17 14:47:00 CDT, Duration: 30 day, Stop date: 02/09/17 14:46:00 CDT, PRN Blood Glucose Results Humalog No Notes: Memoria 01-10 Roll in l 19:46: palms of [place] 00 hands gently; Do not shake `vigorousl y. (Same as: Humalog ) "Single Patient Use Only " WASTE: F/P - Black; E - Municipal Trash Bin Stable for 28 days at room temperatur e. Expires in days from ____Date Humalog No Notes: Memoria 01-10 Roll in l 19:45: palms of [place] 00 hands gently; Do not shake `vigorousl y. (Same as: Humalog ) "Single Patient Use Only " WASTE: F/P - Black; E - Municipal Trash Bin Stable for 28 days at room temperatur e. Expires in days from ____Date Humalog No Notes: Memoria 01-10 Roll in l 19:44: palms of [place] 00 hands gently; Do not shake `vigorousl y. (Same as: Humalog ) "Single Patient Use Only " WASTE: F/P - Black; E - Municipal Trash Bin Stable for 28 days at room temperatur e. Expires in days from ____Date Zofran No Notes: Memoria 01-10 (Same as: l 19:24: Zofran) [place] Melatonin No Notes: Memori a 01-10 (Same as: l 19:24: Melatonin) [place] Guaifenesin No Notes: Sunday tressa 01-10 (Same as: l 19:23: Organidin [place] 00 NR) Adderall No 10 mg, Memoria 01-10 Route: PO, l 19:22: Drug form: [place] TAB, BID, Dosing Weight 84.091, kg, PRN Agitation, Start date: 01/10/17 14:22:00 CDT, Duration: 30 day, Stop date: 02/09/17 14:21:00 CDT gabapentin No Notes: Memor ia 01-10 (Same as: l 19:00: Neurontin) [place] 00 Acetaminoph No Notes: Max Memoria en 01-10 acetaminop l 18:00: hen 4000 [place] 00 mg/day (4 gm/day). (Same as: Tylenol Extra Strength) Guaifenesin Yes 400 mg, Mem oria 18 PO, BID, l 17:15: PRN [place] 00 Cough/Russell estion, 0 Refill(s) Amphetamine Yes 10 mg = 1 M emoria aspartate 18 tab, PO, l 2.5 MG / 17:15: BID, PRN Kelley nn Amphetamine 00 Agitation, Sulfate 2.5 # 60 tab, MG / 0 Dextroamphe Refill(s) tamine saccharate 2.5 MG / Dextroamphe tamine Sulfate 2.5 MG Oral Tablet [Adderall] melatonin 5 Yes 5 mg = 1 Me moria mg oral 01-10 tab, PO, l tablet 17:15: Bedtime, [place] 00 PRN for insomnia, # 60 tab, 0 Refill(s) Adderall 0 Yes PO, BID, 0 Mem oria 01-10 Refill(s) l 17:15: [place] 00 hyoscyamine Yes 0.125 mg = Memoria 0.125 mg 01-10 1 tab, PO, l oral tablet 17:15: TID, 0 Herm amena 00 Refill(s) levocetiriz Yes 5 mg = 1 Me moria ine 5 mg 18 tab, PO, l oral tablet 17:15: QPM, # 30 H ermann 00 tab, 1 Refill(s) Oxycodone No Notes: Memori a Hydrochlori 01-10 (Same as: l de 5 MG 17:03: Roxicodone Herm amena Oral Tablet 00 ) Morphine 2016-0 No Notes: Memoria 01-10 (Same l 17:03: as:MORPhin [place] 00 e Sulfate) Hydromorpho 2016-0 No 0.3 mg, Mem oria ne 01-10 0.3 mL, l 17:03: Route: [place] 00 IVP, Drug form: INJ, Q4H, Dosing Weight 84.091, kg, PRN Pain Score 7-10, Start date: 01/10/17 12:03:00 CDT, Duration: 30 day, Stop date: 02/09/17 12:02:00 CDT Ondansetron 2016-0 No Notes: Sunday tressa 01-10 (Same as: l 17:03: Zofran) [place] MEDICATION WASTE Product Size: 4 mg Product Wasted: ___ mg Cefazolin 2016-0 No 1 gm, Memoria 01-10 Route: l 17:00: IVPB, Drug [place] 00 form: INJ, Q6H, Dosing Weight 84.091, kg, Start date: 01/10/17 12:00:00 CDT, Duration: 3 doses or times, Stop date: 01/11/17 0:00:00 CDT, ABX Indication : Surgical Prophylaxi s Zofran 2016-0 No 4 mg, Memoria 01-10 Route: l 16:16: IVP, Drug [place] 00 form: INJ, ONCE, Dosing Weight 84.091, kg, Start date: 01/10/17 11:16:00 CDT, Stop date: 01/10/17 11:16:00 CDT Morphine 2016-0 No 2 mg, Memoria 01-10 Route: l 16:09: IVP, ONCE, [place] 00 Dosing Weight 84.091, kg, Start date: 01/10/17 11:09:00 CDT, Stop date: 01/10/17 11:09:00 CDT Ondansetron 2016-0 No 4 mg, 5 Mem oria 0.8 MG/ML 9-18 mL, Route: l Oral 16:09: IV, ONCE, [place] Solution Dosing [Zofran] Weight 84.091, kg, Start date: 01/10/17 11:09:00 CDT, Stop date: 01/10/17 11:09:00 CDT Morphine 2016-0 No 2 mg, Memoria 01-10 Route: l 15:55: IVP, ONCE, Dosing Weight 84.091, kg, Start date: 01/10/17 10:55:00 CDT, Stop date: 01/10/17 10:55:00 CDT ropivacaine 2016-0 No Notes: Sunday tressa 01-10 Same as: l 15:13: Naropin ondansetron No Route: IV, Memoria (ANES) 01-10 Drug form: l 15:09: INJ, ONCE, Stop date: 01/10/17 10:09:00 CDT dexamethaso No Route: IV, Memoria ne (ANES) 01-10 Drug form: l 13:42: INJ, ONCE, Stop date: 01/10/17 8:42:00 CDT rocuronium 2016- No Route: IV, M emoria (ANES) 01-10 Drug form: l 13:42: INJ, ONCE, Stop date: 01/10/17 8:42:00 CDT fentaNYL 2016- No Route: IV, Mem oria (ANES) 01-10 Drug form: l 13:42: INJ, ONCE, Stop date: 01/10/17 8:42:00 CDT propofol 2017-0 No Route: IV, Mem oria (ANES) 01-10 Drug form: l 13:42: INJ, ONCE, Stop date: 01/10/17 8:42:00 CDT lidocaine 2017-0 No Route: IV, Me moria (ANES) 01-10 Drug form: l 13:27: INJ, ONCE, Stop date: 01/10/17 8:27:00 CDT succinylcho 2016-0 No Route: IV, Memoria line (ANES) 01-10 Drug form: l 13:27: INJ, ONCE, Stop date: 01/10/17 8:27:00 CDT ceFAZolin 2016- No Route: IV, Me moria (ANES) 01-10 Drug form: l 13:27: INJ, ONCE, Stop date: 01/10/17 8:27:00 CDT Enoxaparin No 30 mg, Memor ia 01-10 Route: l 13:00: SUB-Q, Drug form: INJ, [id number], Dosing Weight 84.091, kg, Start date: 01/10/17 [...] ia 01-10 (Same as: l 10:32: Neurontin) Kytril Yes Notes: Memoria 2-05 Same as: l 16:48: Kytril Non Formulary MEDICATION WASTE Product Size: 1 mg Product Wasted: ___ mg Promethazin No 12.5 mg, Me moria e 2-05 Route: IM, l 16:48: ONCE, Dosing Weight 86.364, kg, Start date: 05/30/15 10:48:00, Stop date: 05/30/15 10:48:00 Fentanyl No Notes: Memoria 2-05 (Same as: l 12:47: Sublimaze) Preservat misty free. Morphine No Notes: Memoria 2-05 (Same l 12:47: as:MORPhin e Sulfate) Flumazenil No Notes: Memor ia 2-05 (Same as: l 12:47: Romazicon) Naloxone No Notes: Memoria 2-05 Same as l 12:47: Narcan Ondansetron No Notes: Sunday tressa 2-05 (Same as: l 12:47: Zofran) MEDICATION WASTE Product Size: 4 mg Product Wasted: ___ mg Calcium No 1,000 mL, Memor ia Chloride 205 Rate: 125 l 0.0014 12:47: ml/hr, [place] MEQ/ML / 00 Infuse Potassium over: 8 Chloride hr, Route: 0.004 IV, Dosing MEQ/ML / Weight Sodium 86.364 kg, Chloride Total 0.103 Volume: MEQ/ML / 1,000, Sodium Start Lactate date: 0.028 16 MEQ/ML 6:47:00, Injectable Duration: Solution 30 day, Stop date: 06/29/15 6:46:00 Acetaminoph No Notes: Sunday tressa en 05 Infuse l 12:47: over 15 minutes Do not exceed 4gm/day of acetaminop hen MEDICATION WASTE Product Size: 1000 mg Product Wasted: ___ mg Calcium No 1,000 mL, Memor ia Chloride 205 Rate: 25 l 0.0014 12:46: ml/hr, [place] MEQ/ML / 00 Infuse Potassium over: 40 Chloride hr, Route: 0.004 IV, Dosing MEQ/ML / Weight Sodium 86.364 kg, Chloride Total 0.103 Volume: MEQ/ML / 1,000, Sodium Start Lactate date: 0.028 16 MEQ/ML 6:46:00, Injectable Duration: Solution 30 day, Stop date: 06/29/15 6:45:00 Insulin, 2014-04 No Notes: [place] Aspart, 04-30 Roll in l Human 17:44: palms of [place] 00 hands gently; Do not shake vigorously . (Same as: NovoLOG) "single patient use only" Stable for 28 days at room temperatur e. Expires in days from ____Date Ondansetron 2014-04 No Notes: Sunday tressa 04-30 (Same as: l 17:44: Zofran) MEDICATION WASTE Product Size: 4 mg Product Wasted: ___ mg Labetalol 2014-04 No Notes: Memori a 04-30 (Same as: l 17:44: Normodyne, Trandate) Push over 2 minutes Give bolus over 2-3 minutes. Calcium 2014-04 No 1,000 mL, Memor ia Chloride 04-30 Rate: 125 l 0.0014 17:44: ml/hr, [place] MEQ/ML / 00 Infuse Potassium over: 8 Chloride hr, Route: 0.004 IV, Dosing MEQ/ML / Weight Sodium 86.364 kg, Chloride Total 0.103 Volume: MEQ/ML / 1,000, Sodium Start Lactate date: 0.028 02/28/15 MEQ/ML 11:44:00, Injectable Duration: Solution 30 day, Stop date: 03/30/15 11:43:00 Morphine 2014-04 No Notes: Memoria - (Same l 17:44: as:MORPhin e Sulfate) Meperidine 2014-04 No Notes: Memor ia 04-30 (Same As: l 17:44: Demerol) Flumazenil 2014-04 No Notes: Memor ia 04-30 (Same as: l 17:44: Romazicon) Naloxone 2014-04 [...] mg, Memoria 1-04 PO, TID l 22:51: Zofran 2014-04 Yes 4 mg, PO, Memori a 1-04 Q8H, PRN l 22:50: as needed for nausea/vom iting Benadryl 2014-04 Yes 25 mg, PO, Mem oria 1-04 Bedtime l 22:50: Mucinex 2014-04 Yes 600 mg, [facility] 1-04 PO, Q12H l 22:50: tramadol Yes TAKE 1 [facility] (ULTRAM) 50 3-05 TABLET BY [facility] MG tablet 00:00: MOUTH of 00 THREE Medicin TIMES e DAILY NEEDED FOR PAIN hydrocodone Yes 1{tbl} Take 1 Tab [facility] -acetaminop 3-05 by mouth 2 [facility] hen (NORCO) 00:00: times of 5-325 mg 00 daily as Medicin tablet needed for e Pain. CYANOCOBALA 2012-04 Yes Take by Un [facility] MIN, 1-21 mouth. ity of VITAMIN 21:12: [place] B-12, 09 Medical (VITAMIN Branch B-12 ORAL) VITAMIN B 2012-04 Yes Take by [facility] ers COMPLEX - mouth. ity of (VITAMIN 21:12: [place] B-100 09 Medical COMPLEX Branch ORAL) Chromium 2012-04 Yes [facility] ([facility]ROM[facility]IN) - mouth. ity of 1,000 mcg 21:12: [place] Tab 09 Medical Branch vitamin B-6 2012-04 Yes 100mg Take 100 U nivers (VITAMIN 1-21 mg by ity of B-6) 100 mg 21:12: mouth [place] tablet 09 daily. Medical Branch foLIC acid 2012-04 Yes 1mg Take 1 mg Un [facility] (FOLATE) 1 1-21 by mouth ity o f mg tablet 21:12: daily. [place] [address] Medical Branch CYANOCOBALA 2012-04 Yes Take by [facility] MIN, 1-21 mouth. ity of VITAMIN 21:12: [facility] Medical (VITAMIN Branch B-12 ORAL) VITAMIN B 2012-04 Yes Take by Univ ers COMPLEX 1-21 mouth. ity of (VITAMIN 21:12: [place] [facility] COMPLEX Branch ORAL) Chromium 2012-04 Yes Take by Unive rs (CHROMIMIN) -21 mouth. ity of 1,000 mcg 21:12: [address] Branch vitamin B-6 2012-04 Yes 100mg Take 100 U nivers (VITAMIN 1-21 mg by ity of B-6) 100 mg 21:12: mouth [place] tablet 09 daily. Medical Branch foLIC acid 2012-04 Yes 1mg Take 1 mg [facility] (FOLATE) 1 -21 by mouth ity o f mg tablet 21:12: daily. [address] Branch CYANOCOBALA 2012-04 Yes Take by [facility] MIN, -21 mouth. ity of VITAMIN 21:12: [facility] Medical (VITAMIN Branch B-12 ORAL) VITAMIN B 2012-04 Yes Take by Univ ers COMPLEX 1-21 mouth. ity of (VITAMIN 21:12: [place] [facility] COMPLEX Branch ORAL) Chromium 2012-04 Yes Take by Unive rs (CHROMIMIN) 1-21 mouth. ity of 1,000 mcg 21:12: [place] [address] Medical Branch vitamin B-6 2012-04 Yes 100mg Take 100 U nivers (VITAMIN 1-21 mg by ity of B-6) 100 mg 21:12: mouth [place] tablet 09 daily. Medical Branch foLIC acid 2012-04 Yes 1mg Take 1 mg [facility] (FOLATE) 1 1-21 by mouth ity o f mg tablet 21:12: daily. [address] Branch CYANOCOBALA 2012-04 Yes Take by [facility] MIN, 1-21 mouth. ity of VITAMIN 21:12: [place] Medical (VITAMIN Branch B-12 ORAL) VITAMIN B 2012-04 Yes Take by Univ ers COMPLEX 1-21 mouth. ity of (VITAMIN 21:12: Medical COMPLEX Branch ORAL) Chromium 2012-04 Yes Take by Unive rs (CHROMIMIN) -21 mouth. ity of 1,000 mcg 21:12: [address] Branch vitamin B-6 2012-04 Yes 100mg Take 100 U nivers (VITAMIN 1-21 mg by ity of B-6) 100 mg 21:12: mouth [place] tablet 09 daily. Medical Branch foLIC acid 2012-04 Yes 1mg Take 1 mg [facility] (FOLATE) 1 21 by mouth ity o f mg tablet 21:12: daily. [place] [address] Medical Branch CYANOCOBALA 2012-04 Yes Take by [facility] MIN, -21 mouth. ity of VITAMIN 21:12: [place] [facility] (VITAMIN Branch B-12 ORAL) VITAMIN B 2012-04 Yes Take by Univ ers COMPLEX -21 mouth. ity of (VITAMIN 21:12: [place] [facility] COMPLEX Branch ORAL) Chromium 2012-04 Yes Take by Unive rs (CHROMIMIN) 21 mouth. ity of 1,000 mcg 21:12: [address] Branch vitamin B-6 2012-04 Yes 100mg Take 100 U nivers (VITAMIN 1-21 mg by ity of B-6) 100 mg 21:12: mouth [place] tablet 09 daily. Medical Branch foLIC acid 2012-04 Yes 1mg Take 1 mg [facility] (FOLATE) 1 21 by mouth ity o f mg tablet 21:12: daily. [address] Branch CYANOCOBALA 2012-04 Yes Take by [facility] MIN, -21 mouth. ity of VITAMIN 21:12: [place] [facility] (VITAMIN Branch B-12 ORAL) VITAMIN B 2012-04 Yes Take by Univ ers COMPLEX 1-21 mouth. ity of (VITAMIN 21:12: [place] [facility] COMPLEX Branch ORAL) Chromium 2012-04 Yes Take by Unive rs (CHROMIMIN) 1-21 mouth. ity of 1,000 mcg 21:12: [address] Branch vitamin B-6 2012-04 Yes 100mg Take 100 U nivers (VITAMIN 1-21 mg by ity of B-6) 100 mg 21:12: mouth [place] tablet 09 daily. Medical Branch foLIC acid 2012-04 Yes 1mg Take 1 mg [facility] (FOLATE) 1 1-21 by mouth ity o f mg tablet 21:12: daily. [place] [address] Medical Branch CYANOCOBALA 2012-04 Yes Take by [facility] MIN, 1-21 mouth. ity of VITAMIN 21:12: [place] B-12, 09 Medical (VITAMIN Branch B-12 ORAL) VITAMIN B 2012-04 Yes Take by Univ ers COMPLEX 1-21 mouth. ity of (VITAMIN 21:12: [place] B-100 09 Medical COMPLEX Branch ORAL) Chromium 2012-04 Yes [facility] ([facility]) 1-21 mouth. ity of 1,000 mcg 21:12: [place] Tab [address] [place] [address] Branch vitamin B-6 2012-04 Yes 100mg Take 100 U nivers (VITAMIN 1-21 mg by ity of B-6) 100 mg 21:12: mouth [place] tablet 09 daily. Medical Branch foLIC acid 2012-04 Yes 1mg Take 1 mg [facility] (FOLATE) 1 1-21 by mouth ity o f mg tablet 21:12: daily. [address] Branch furosemide 2012-04 Yes 20mg Take 20 mg U nivers (LASIX) 20 1-21 by mouth ity o f mg tablet 21:08: daily. [address] Branch HYOSCYAMINE 2012-04 Yes Take by Un [facility] SULFATE 1-21 mouth. ity of (LEVSINEX 21:08: [place] ORAL) 05 [facility] Branch escitalopra 2012-04 Yes 20mg Take 20 mg Univers m (LEXAPRO) 1-21 by mouth ity of 20 mg 21:08: daily. [address] Branch ARIPIPRAZOL 2012-04 Yes Take by Un ebony E (ABILIFY 1-21 mouth. ity of ORAL) 21:08: [address] Branch zolpidem 2012-04 Yes 12.5mg Take 12.5 [facility] (AMBIEN CR) 1-21 mg by ity of 12.5 mg CR 21:08: mouth at [place] as tablet 05 bedtime as Medical needed. Branch ALPRAZolam 2012-04 Yes .5mg Take 0.5 Uni vers (XANAX) 0.5 1-21 mg by ity of mg tablet 21:08: mouth 3 [place] [address] (three) Medical times Branch daily. PHENOBARB/H 2012-04 Yes Take by Un ebony YOSCY/ATROP 1-21 mouth. ity of INE/SCOP 21:08: [place] ( Medical ORAL) [place] SUCRALFATE 2012-04 Yes Take by Uni vers (CARAFATE -21 mouth. ity of ORAL) 21:08: [address] OMEPRAZOLE 2012-04 Yes Take by Uni vers ORAL 1-21 mouth. ity of 21:08: [address] azaTHIOprin 2012-04 Yes 50mg Take 50 mg Univers e (IMURAN) 21 by mouth ity o f 50 mg 21:08: daily. [place] tablet [address] [place] [address] INFLIXIMAB 2012-04 Yes Inject Unive rs (REMICADE - intravenou ity of IV) 21:08: sly. [address] POTASSIUM 2012-04 Yes Take by Univ ers CHLORIDE -21 mouth. ity of ORAL 21:08: [address] darifenacin 2012-04 Yes 15mg Take 15 mg Univers (ENABLEX) -21 by mouth ity of 15 mg 24 hr 21:08: [place]. [place] [address] [place] [address] furosemide 2012-04 Yes 20mg Take 20 mg U nivers (LASIX) 20 -21 by mouth ity o f mg tablet 21:08: daily. [address] HYOSCYAMINE 2012-04 Yes Take by Un [facility] SULFATE -21 mouth. ity of (LEVSINEX 21:08: [place] ORAL) [address] [place] [address] escitalopra 2012-04 Yes 20mg Take 20 mg Univers m (LEXAPRO) 21 by mouth ity of 20 mg 21:08: daily. [place] tablet [address] [place] [address] ARIPIPRAZOL 2012-04 Yes Take by [facility] E (ABILIFY 1-21 mouth. ity of ORAL) 21:08: [address] zolpidem 2012-04 Yes 12.5mg Take 12.5 [facility] (AMBIEN CR) 1-21 mg by ity of 12.5 mg CR 21:08: mouth at [place] as tablet 05 bedtime as Medical needed. Branch ALPRAZolam 2012-04 Yes .5mg Take 0.5 Uni vers (XANAX) 0.5 1-21 mg by ity of mg tablet 21:08: mouth 3 [place] [address] (three) Medical times Branch daily. PHENOBARB/H 2012-04 Yes Take by [facility] YOSCY/ATROP 1-21 mouth. ity of INE/SCOP 21:08: [place] ( Medical ORAL) [place] SUCRALFATE 2012-04 Yes Take by Uni vers (CARAFATE -21 mouth. ity of ORAL) 21:08: [address] OMEPRAZOLE 2012-04 Yes Take by Uni vers ORAL 1-21 mouth. ity of 21:08: [address] azaTHIOprin 2012-04 Yes 50mg Take 50 mg Univers e (IMURAN) 21 by mouth ity o f 50 mg 21:08: daily. [address] INFLIXIMAB 2012-04 Yes Inject Unive rs (REMICADE 05-15 intravenou ity of IV) 21:08: sly. [address] POTASSIUM 2012-04 Yes Take by Univ ers CHLORIDE 05-15 mouth. ity of ORAL 21:08: [address] darifenacin 2012-04 Yes 15mg Take 15 mg Univers (ENABLEX) 05-15 by mouth ity of 15 mg 24 hr 21:08: [place]. [place] [address] [place] [address] furosemide 2012-04 Yes 20mg Take 20 mg U nivers (LASIX) 20 -21 by mouth ity o f mg tablet 21:08: daily. [address] HYOSCYAMINE 2012-04 Yes Take by Un [facility] SULFATE -21 mouth. ity of (LEVSINEX 21:08: [place] ORAL) [address] [place] [address] escitalopra 2012-04 Yes 20mg Take 20 mg Univers m (LEXAPRO) 21 by mouth ity of 20 mg 21:08: daily. [place] tablet [address] [place] [address] ARIPIPRAZOL 2012-04 Yes Take by [facility] E (ABILIFY -21 mouth. ity of ORAL) 21:08: [address] zolpidem 2012-04 Yes 12.5mg Take 12.5 [facility] (AMBIEN CR) 1-21 mg by ity of 12.5 mg CR 21:08: mouth at [place] as tablet 05 bedtime as Medical needed. Branch ALPRAZolam 2012-04 Yes .5mg Take 0.5 Uni vers (XANAX) 0.5 1-21 mg by ity of mg tablet 21:08: mouth 3 [place] [address] (three) Medical times Branch daily. PHENOBARB/H 2012-04 Yes Take by [facility] YOSCY/ATROP 1-21 mouth. ity of INE/SCOP 21:08: [place] ( Medical ORAL) [place] SUCRALFATE 2012-04 Yes Take by Uni vers (CARAFATE -21 mouth. ity of ORAL) 21:08: [address] OMEPRAZOLE 2012-04 Yes Take by Uni vers ORAL 1-21 mouth. ity of 21:08: [address] azaTHIOprin 2012-04 Yes 50mg Take 50 mg Univers e (IMURAN) 21 by mouth ity o f 50 mg 21:08: daily. [address] INFLIXIMAB 2012-04 Yes Inject Unive rs (REMICADE 05-15 intravenou ity of IV) 21:08: sly. [address] POTASSIUM 2012-04 Yes Take by Univ ers CHLORIDE - mouth. ity of ORAL 21:08: [address] darifenacin 2012-04 Yes 15mg Take 15 mg Univers (ENABLEX) - by mouth ity of 15 mg 24 hr 21:08: [place] [address] [place] [address] furosemide 2012-04 Yes 20mg Take 20 mg U nivers (LASIX) 20 1-21 by mouth ity o f mg tablet 21:08: daily. [address] HYOSCYAMINE 2012-04 Yes Take by Un [facility] SULFATE -21 mouth. ity of (LEVSINEX 21:08: [place] ORAL) [address] [place] [address] escitalopra 2012-04 Yes 20mg Take 20 mg Univers m (LEXAPRO) 21 by mouth ity of 20 mg 21:08: daily. [place] tablet [address] [place] [address] ARIPIPRAZOL 2012-04 Yes Take by Un [facility] E (ABILIFY 1-21 mouth. ity of ORAL) 21:08: [address] zolpidem 2012-04 Yes 12.5mg Take 12.5 [facility] (AMBIEN CR) 1-21 mg by ity of 12.5 mg CR 21:08: mouth at [place] as tablet 05 bedtime as Medical needed. Branch ALPRAZolam 2012-04 Yes .5mg Take 0.5 Uni vers (XANAX) 0.5 1-21 mg by ity of mg tablet 21:08: mouth 3 [place] [address] (three) Medical times Branch daily. PHENOBARB/H 2012-04 Yes Take by [facility] YOSCY/ATROP 1-21 mouth. ity of INE/SCOP 21:08: [place] ( Medical ORAL) [place] SUCRALFATE 2012-04 Yes Take by Uni vers (CARAFATE 1-21 mouth. ity of ORAL) 21:08: [address] OMEPRAZOLE 2012-04 Yes Take by Uni vers ORAL 1-21 mouth. ity of 21:08: [address] azaTHIOprin 2012-04 Yes 50mg Take 50 mg Univers e (IMURAN) -21 by mouth ity o f 50 mg 21:08: daily. [place] tablet [address] [place] [address] INFLIXIMAB 2012-04 Yes Inject Unive rs (REMICADE 05-15 intravenou ity of IV) 21:08: sly. [address] POTASSIUM 2012-04 Yes Take by Univ ers CHLORIDE 1-21 mouth. ity of ORAL 21:08: [address] darifenacin 2012-04 Yes 15mg Take 15 mg Univers (ENABLEX) -21 by mouth ity of 15 mg 24 hr 21:08: [place]. [place] [address] [place] [address] furosemide 2012-04 Yes 20mg Take 20 mg U nivers (LASIX) 20 1-21 by mouth ity o f mg tablet 21:08: daily. [address] HYOSCYAMINE 2012-04 Yes Take by Un [facility] SULFATE 1-21 mouth. ity of (LEVSINEX 21:08: [place] ORAL) [address] [place] [address] escitalopra 2012-04 Yes 20mg Take 20 mg Univers m (LEXAPRO) -21 by mouth ity of 20 mg 21:08: daily. [place] tablet [address] [place] [address] ARIPIPRAZOL 2012-04 Yes Take by Un [facility] E (ABILIFY 1-21 mouth. ity of ORAL) 21:08: [address] zolpidem 2012-04 Yes 12.5mg Take 12.5 Un [facility] (AMBIEN CR) 1-21 mg by ity of 12.5 mg CR 21:08: mouth at [facility] as tablet 05 bedtime as Medical needed. Branch ALPRAZolam 2012-04 Yes .5mg Take 0.5 Uni vers (XANAX) 0.5 1-21 mg by ity of mg tablet 21:08: mouth 3 [place] [address] (three) Medical times Branch daily. PHENOBARB/H 2012-04 Yes Take by [facility] YOSCY/ATROP 1-21 mouth. ity of INE/SCOP 21:08: [place] ( Medical ORAL) [place] SUCRALFATE 2012-04 Yes Take by Uni vers (CARAFATE -21 mouth. ity of ORAL) 21:08: [address] OMEPRAZOLE 2012-04 Yes Take by Uni vers ORAL 1-21 mouth. ity of 21:08: [address] azaTHIOprin 2012-04 Yes 50mg Take 50 mg Univers e (IMURAN) 21 by mouth ity o f 50 mg 21:08: daily. [address] INFLIXIMAB 2012-04 Yes Inject Unive rs (REMICADE 05-15 intravenou ity of IV) 21:08: sly. [address] POTASSIUM 2012-04 Yes Take by Univ ers CHLORIDE -21 mouth. ity of ORAL 21:08: [address] darifenacin 2012-04 Yes 15mg Take 15 mg Univers (ENABLEX) -21 by mouth ity of 15 mg 24 hr 21:08: [place] [address] [place] [address] furosemide 2012-04 Yes 20mg Take 20 mg U nivers (LASIX) 20 1-21 by mouth ity o f mg tablet 21:08: daily. [address] HYOSCYAMINE 2012-04 Yes Take by Un [facility] SULFATE -21 mouth. ity of (LEVSINEX 21:08: [place] ORAL) [address] [place] [address] escitalopra 2012-04 Yes 20mg Take 20 mg Univers m (LEXAPRO) -21 by mouth ity of 20 mg 21:08: daily. [address] ARIPIPRAZOL 2012-04 Yes Take by Un [facility] E (ABILIFY 1-21 mouth. ity of ORAL) 21:08: [address] zolpidem 2012-04 Yes 12.5mg Take 12.5 Un [facility] (AMBIEN CR) 1-21 mg by ity of 12.5 mg CR 21:08: mouth at [place] as tablet 05 bedtime as Medical needed. Branch ALPRAZolam 2012-04 Yes .5mg Take 0.5 Uni vers (XANAX) 0.5 1-21 mg by ity of mg tablet 21:08: mouth 3 [place] [address] (three) Medical times Branch daily. PHENOBARB/H 2012-04 Yes Take by [facility] YOSCY/ATROP 1-21 mouth. ity of INE/SCOP 21:08: [place] ( Medical ORAL) Branch SUCRALFATE 2012-04 Yes Take by Uni vers (CARAFATE -21 mouth. ity of ORAL) 21:08: [address] OMEPRAZOLE 2012-04 Yes Take by Uni vers ORAL 1-21 mouth. ity of 21:08: [address] azaTHIOprin 2012-04 Yes 50mg Take 50 mg Univers e (IMURAN) -21 by mouth ity o f 50 mg 21:08: daily. [address] INFLIXIMAB 2012-04 Yes Inject Unive rs (REMICADE - intravenou ity of IV) 21:08: sly. [address] POTASSIUM 2012-04 Yes Take by Univ ers CHLORIDE -21 mouth. ity of ORAL 21:08: [address] darifenacin 2012-04 Yes 15mg Take 15 mg Univers (ENABLEX) -21 by mouth ity of 15 mg 24 hr 21:08: [place]. [place] [address] [place] [address] furosemide 2012-04 Yes 20mg Take 20 mg U nivers (LASIX) 20 1-21 by mouth ity o f mg tablet 21:08: daily. [address] HYOSCYAMINE 2012-04 Yes Take by Un [facility] SULFATE 1-21 mouth. ity of (LEVSINEX 21:08: [place] ORAL) [address] [place] [address] Branch escitalopra 2012-04 Yes 20mg Take 20 mg Univers m (LEXAPRO) -21 by mouth ity of 20 mg 21:08: daily. [place] tablet [address] [place] [address] ARIPIPRAZOL 2012-04 Yes Take by Un ebony E (ABILIFY 1-21 mouth. ity of ORAL) 21:08: [address] zolpidem 2012-04 Yes 12.5mg Take 12.5 Un [facility] (AMBIEN CR) 1-21 mg by ity of 12.5 mg CR 21:08: mouth at [place] as tablet 05 bedtime as Medical needed. Branch ALPRAZolam 2012-04 Yes .5mg Take 0.5 Uni vers (XANAX) 0.5 1-21 mg by ity of mg tablet 21:08: mouth 3 [place] [address] (three) Medical times Branch daily. PHENOBARB/H 2012-04 Yes Take by [facility] YOSCY/ATROP 1-21 mouth. ity of INE/SCOP 21:08: [place] ( 05 Medical ORAL) Branch SUCRALFATE 2012-04 Yes Take by Uni vers (CARAFATE -21 mouth. ity of ORAL) 21:08: [address] OMEPRAZOLE 2012-04 Yes Take by Uni vers ORAL 1-21 mouth. ity of 21:08: [address] azaTHIOprin 2012-04 Yes 50mg Take 50 mg Univers e (IMURAN) 21 by mouth ity o f 50 mg 21:08: daily. [address] INFLIXIMAB 2012-04 Yes Inject Unive rs (REMICADE - intravenou ity of IV) 21:08: sly. [address] POTASSIUM 2012-04 Yes Take by Univ ers CHLORIDE 1-21 mouth. ity of ORAL 21:08: [address] darifenacin 2012-04 Yes 15mg Take 15 mg Univers (ENABLEX) -21 by mouth ity of 15 mg 24 hr 21:08: [place] [address] [place] [address] ergocalcife 2012-04 Yes [id number] Take 1 Cap Univers rol, 1-21 by mouth ity of vitamin d2, 00:00: weekly. [place] [facility] (CALCIFEROL Medical ) 50,000 Branch unit capsule ergocalcife 2012-04 Yes [id number] Take 1 Cap Univers rol, 1-21 by mouth ity of vitamin d2, 00:00: weekly. [place] as (CALCIFEROL Medical ) 50,000 Branch unit capsule ergocalcife 2012-04 Yes [id number] Take 1 Cap Univers rol, 1-21 by mouth ity of vitamin d2, 00:00: weekly. [place] as (CALCIFEROL Medical ) 50,000 Branch unit capsule ergocalcife 2012-04 Yes [id number] Take 1 Cap Univers rol, 1-21 by mouth ity of vitamin d2, 00:00: weekly. [place] as (CALCIFEROL Medical ) 50,000 Branch unit capsule ergocalcife 2012-04 Yes [id number] Take 1 Cap Univers rol, 1-21 by mouth ity of vitamin d2, 00:00: weekly. [place] [facility] (CALCIFEROL Medical ) 50,000 Branch unit capsule ergocalcife 2012-04 Yes [id number] Take 1 Cap Univers rol, 1-21 by mouth ity of vitamin d2, 00:00: weekly. [place] [facility] (CALCIFEROL Medical ) 50,000 Branch unit capsule ergocalcife 2012-04 Yes [id number] Take 1 Cap Univers rol, 1-21 by mouth ity of vitamin d2, 00:00: weekly. [place] [facility] (CALCIFEROL Medical ) 50,000 Branch unit capsule Aspirin-Davey Yes Take by Jarad farfan taminophen- 7-03 mouth. Colleg e Caffeine 15:22: of (EXCEDRIN 52 Medicin OR) e Cholecalcif Yes Take by Jarad farfan miri 7-03 mouth. [place] (VITAMIN D) 15:22: of 1000 UNIT 52 Medicin TABS e Escitalopra Yes Take by Jarad farfan m Oxalate 7-03 mouth. [place] (LEXAPRO 15:22: of OR) 52 Medicin e aripiprazol Yes 2mg Take 2 mg [facility] e (ABILIFY) 703 by mouth [place] [facility] 2 MG tablet 15:22: daily. of 52 Medicin e Ibuprofen Yes Take by [facility] or (ADVIL) 200 3-20 mouth. Colleg e MG CAPS 15:01: of 22 Medicin e hyoscyamine Yes .125mg Take 0.125 [facility] (LEVSIN) 3-20 mg by [place] 0.125 MG 15:01: mouth of tablet 22 every 4 Medicin hours as e needed. Metoclopram Yes Take by Jarad farfan dagmar HCl 3-20 mouth. [place] (METOZOLV 15:01: of ODT) 10 MG 22 Medicin TBDP e Zolpidem Yes Take by [place] r Tartrate 3-20 mouth. [place] (AMBIEN CR 15:01: of OR) 22 Medicin e predniSONE Yes [id number] 20mg Take 1 Tab [place] (DELTASONE) 1-27 by mouth. Col lege 20 MG 00:00: Take 2 of tablet 00 tablets in Medicin the am X e 5 days/ disp 10 lidocaine 2010-04 Yes [id number] 1{patch Place 1 [facility] (LIDODERM) 1- } Patch onto [facility] 5 % patch 00:00: the skin of 00 every 12 Medicin hours. e Apply to affected area 12 hours on, 12 hours off. EFFEXOR XR Yes take 2 qd [facility] 150 MG OR 01-10 College CP24 00:00: of 00 Medicin e FUROSEMIDE Yes take 1 qd [facility] 20 MG PO 01-10 College TABS 00:00: of Medicin e POTASSIUM Yes take 1 qd [place] [facility] CHLORIDE 20 01-10 College MEQ PO PACK 00:00: of 00 Medicin e XANAX XR Yes take 1 BID [place] [facility] 0.5 MG OR 01-10 TB24 00:00: of 00 Medicin e TOPAMAX 100 Yes take 1 qd [facility] MG OR TABS 01-10 College 00:00: of 00 Medicin e AMBIEN 10 Yes take 1qd [facility] or MG OR TABS 01-10 College 00:00: of 00 Medicin e NORTRIPTYLI Yes take 5 qd [facility] NE HCL 10 01-10 College MG PO CAPS 00:00: of 00 Medicin e IMURAN 50 Yes take 1 qd [place] alka MG OR TABS 01-10 College 00:00: of 00 Medicin e PROTONIX 20 Yes take 1 qd [facility] MG OR TBEC 01-10 College 00:00: of 00 Medicin e ZOFRAN 4 MG Yes take PRN [facility] OR TABS 01-10 College 00:00: of 00 Medicin e BYETTA 10 Yes inject BID [facility] MCG PEN 10 01-10 College MCG/0.04ML 00:00: of [place] SOLN 00 Medicin e REMICADE Yes Take 400 [facility] 100 MG IV 9-18 units IV Colleg e SOLR 00:00: of 00 Medicin e Yes take QID [facility] 16.2 MG/5ML 01-10 [place] OR ELIX 00:00: of 00 Medicin e Vital Signs Vital Name Observation Time Observation Value Comments Source Systolic blood 2019-08-01 19:50:00 205 mm[Hg] Univer sity of pressure [place] [facility] Diastolic blood 2019-08-01 19:50:00 94 mm[Hg] Unive rsity of pressure [place] [facility] Heart rate 2019-08-01 19:49:00 76 /min [facility] [place] [facility] Body temperature 2019-08-01 19:49:00 36.89 Erica Univ ersity of [place] [facility] Respiratory rate 2019-08-01 19:49:00 20 /min [facility] [place] [facility] Body weight 2019-08-01 19:49:00 83.915 kg [facility] [place] [facility] BMI 2019-08-01 19:49:00 29.86 kg/m2 [facility] [place] [facility] Oxygen saturation in 2019-08-01 19:49:00 97 /min University of Arterial blood by [place] [employer] kasey Pulse oximetry Branch Systolic blood 2019-08-01 19:50:00 205 mm[Hg] Univer sity of pressure [place] [facility] Diastolic blood 2019-08-01 19:50:00 94 mm[Hg] Unive rsity of pressure [place] [facility] Heart rate 2019-08-01 19:49:00 76 /min [facility] [place] [facility] Body temperature 2019-08-01 19:49:00 36.89 Erica [facility] [place] [facility] Respiratory rate 2019-08-01 19:49:00 20 /min Univ ers[facility] [place] [facility] Body weight 2019-08-01 19:49:00 83.915 kg [facility] [place] [facility] BMI 2019-08-01 19:49:00 29.86 kg/m2 [facility] [place] [facility] Oxygen saturation in 2019-08-01 19:49:00 97 /min University of Arterial blood by [employer] kasey Pulse oximetry Branch Heart Rate 2017-01-12 13:15:00 [facility] Temperature Oral (F) 2017-01-12 13:15:00 98.2 F [facility] Respitory Rate 2017-01-12 13:15:00 Nikky hayden [place] Systolic (mm Hg) 2017-01-12 13:15:00 Sunday shoemaker [place] Diastolic (mm Hg) 2017-01-12 13:15:00 Mem orial [place] Respitory Rate 2017-01-12 09:00:00 Memori al [place] Systolic (mm Hg) 2017-01-12 09:00:00 Sunday rial [place] Diastolic (mm Hg) 2017-01-12 09:00:00 Mem orial [place] Temperature Oral (F) 2017-01-12 09:00:00 98.6 F [facility] [place] Heart Rate 2017-01-12 09:00:00 [facility] Heart Rate 2017-01-12 05:00:00 [facility] Temperature Oral (F) 2017-01-12 05:00:00 99.2 F [facility] [place] Systolic (mm Hg) 2017-01-12 05:00:00 Sunday rial [place] Diastolic (mm Hg) 2017-01-12 05:00:00 Mem orial [place] Respitory Rate 2017-01-12 05:00:00 Memori al [place] Weight 2017-01-10 17:08:00 [facility] BMI Calculated 2017-01-10 17:08:00 Memori [facility] [place] Height 2017-01-10 17:08:00 167.64 cm [facility] Height 2017-01-06 21:23:00 152.4 cm [facility] Weight 2017-01-06 21:23:00 [facility] BMI Calculated 2017-01-06 21:23:00 Memori al [place] Systolic (mm Hg) 2015-05-30 17:30:00 Sunday rial [place] Diastolic (mm Hg) 2015-05-30 17:30:00 Mem orial [place] Respitory Rate 2015-05-30 17:30:00 Memori al [place] Systolic (mm Hg) 2015-05-30 17:15:00 Sunday rial [place] Diastolic (mm Hg) 2015-05-30 17:15:00 Mem orial [place] Respitory Rate 2015-05-30 17:15:00 Memori al [place] Respitory Rate 2015-05-30 17:00:00 Memori al [place] Systolic (mm Hg) 2015-05-30 17:00:00 Sunday rial [place] Diastolic (mm Hg) 2015-05-30 17:00:00 Mem orial [place] Height 2015-05-27 17:55:00 167.64 cm [facility] BMI Calculated 2015-05-27 17:55:00 Memori al [place] Weight 2015-05-27 17:55:00 [facility] Systolic (mm Hg) 2015-02-28 18:33:00 Sunday [facility] [place] Diastolic (mm Hg) 2015-02-28 18:33:00 [facility] [place] Systolic (mm Hg) 2015-02-28 18:30:00 Sunday [facility] [place] Diastolic (mm Hg) 2015-02-28 18:30:00 [facility] [place] Respitory Rate 2015-02-28 18:30:00 [facility] Systolic (mm Hg) 2015-02-28 18:15:00 Sunday [facility] [place] Diastolic (mm Hg) 2015-02-28 18:15:00 [facility] [place] Respitory Rate 2015-02-28 18:15:00 [facility] [place] Respitory Rate 2015-02-28 18:00:00 [facility] Heart Rate 2015-02-28 13:15:00 [facility] BMI Calculated 2015-02-26 22:25:00 [facility] [place] Weight 2015-02-26 22:25:00 [facility] Height 2015-02-26 22:25:00 167.64 cm [facility] [place] Procedures Procedure Date / Time Performing Clinician Source Performed US RETROPERITONEAL 2020-05-26 22:10:02 Quita Youssef [facility] COMPLETE Medical Branch NOTICE OF BILLING 2020-05-26 21:11:08 Doctor Unassigned, [facility] PRACTICES FOR MEDICARE [facility] PATIENTS [facility] PATIENT FINANCIAL 2020-05-26 21:10:37 Doctor Unassigned, [facility] POLICY [facility] NO SHOW OR MISSED 2020-05-26 21:10:22 Doctor Unassigned, [facility] APPOINTMENT POLICY [facility] ACKNOWLEDGEMENT NOTICE OF PRIVACY 2020-05-26 21:10:02 Doctor Unassigned, [facility] PRACTICES [facility] CONSENT/REFUSAL FOR 2020-05-26 21:09:41 Doctor Unassigned, [facility] DIAGNOSIS AND TREATMENT [facility] ASSIGNMENT OF BENEFITS 2020-05-26 21:09:19 Doctor Unassigned, [facility] CORONAVIRUS COVID-19 2019-08-01 19:52:00 Raina Acosta [facility] TESTING Medical Branch TKR -Total prosthetic 2017-01-10 05:00:00 Nikky hayden [place] replacement of knee joint using cement Cholecystectomy [facility] Procedure<sup>2</sup> [facility] Rotator cuff [facility] repair<sup>3</sup> Plan of Care Planned Activity Planned Date Details Comments Source Future Scheduled Test COLON CANCER SCREENING: [facility] COLONOSCOPY [code = Medicine COLON CANCER SCREENING: COLONOSCOPY] Future Scheduled Test MAMMOGRAM ANNUAL [code [facility] = MAMMOGRAM ANNUAL] Medicine Future Scheduled Test TETANUS SHOT (ADULT) [facility] [code = TETANUS SHOT Medicin e (ADULT)] Future Scheduled Test Diabetic foot [facility] Medicine (regime/therapy) [code = 070814196] Future Scheduled Test ANNUAL DIABETIC [facility] RETINOPATHY SCREENING Medici ne [code = ANNUAL DIABETIC RETINOPATHY SCREENING] Future Scheduled Test ZOSTER VACCINE (1 of 2) [facility] [code = ZOSTER VACCINE Medic ine (1 of 2)] Future Scheduled Test MEDICARE AWV (Initial) [facility] [code = MEDICARE AWV Medicin e (Initial)] Future Scheduled Test FALL SCREEN [code = [facility] FALL SCREEN] Medicine Future Scheduled Test OSTEOPOROSIS SCREENING [facility] [code = OSTEOPOROSIS Medicin e SCREENING] Future Scheduled Test PNEUMOVAX >=65 (PPSV23) [facility] [code = PNEUMOVAX >=65 Medic ine (PPSV23)] Future Scheduled Test FLU VACCINE > 6 MONTHS [facility] [code = FLU VACCINE > 6 Medi cine MONTHS] Encounters Start End Encounter Admission Attending Care Care Encounter Source Date/Time Date/Time Type Type Clinicians Facility Department ID 2021-05-20 Outpatient Melissa, [facility] [id number] 13:50:36 Kristian [id number] Roc - Renee michaud Outpati ent Clinics 2021-06-11 2021-06-11 Outpatient GC_TNC_Cher PRIV PRIV [id number] [facility] 04:55:00 04:55:00 ches_I [id number] Medica l 2021-06-11 2021-06-11 Outpatient Cherches, PRIV PRIV [id number] 00:00:00 00:00:00 Antonio Carvalho [id number] 2021-06-09 2021-06-09 Outpatient GC_TNC_Cher PRIV PRIV [id number] [facility] 11:18:00 11:18:00 ches_I [id number] Medica l 2021-05-28 2021-05-28 Outpatient GC_TNC_Cher PRIV PRIV [id number] [facility] 11:06:00 11:06:00 ches_I [id number] Medica l 2021-05-27 2021-05-27 Outpatient GC_TNC_Cher PRIV PRIV [id number] [facility] 12:40:00 12:40:00 ches_I [id number] Medica l 2021-05-26 2021-05-26 Outpatient GC_TNC_Cher PRIV PRIV [id number] [facility] 03:31:00 03:31:00 ches_I [id number] Medica l 2021-05-22 2021-05-22 Outpatient GC_TNC_Cher PRIV PRIV [id number] [facility] 05:05:00 05:05:00 ches_I [id number] Medica l 2021-05-21 2021-05-21 Outpatient GC_TNC_Cher PRIV PRIV [id number] [facility] 11:20:00 11:20:00 ches_I [id number] Medica l 2021-05-20 2021-05-20 Outpatient GC_TNC_Cher PRIV PRIV [id number] [facility] 06:25:00 06:25:00 ches_I [id number] Medica l 2021-05-14 2021-05-14 Outpatient GC_TNC_Cher PRIV PRIV [id number] [facility] 03:44:00 03:44:00 ches_I [id number] Medica l 2021-04-15 2021-04-15 Outpatient SATKUNASIVA [facility] [id number] [place] 00:00:00 00:00:00 M, GURPREET [address] 2021-04-15 2021-04-15 Outpatient SATKUNASIVA [facility] [id number] [place] 00:00:00 00:00:00 M, GURPREET [address] 2021-04-15 2021-04-15 Outpatient SATKUNASIVA [facility] [id number] [place] 00:00:00 00:00:00 M, GURPREET 934 Method i 2021-04-15 2021-04-15 Outpatient SATKUNASIVA [facility] [id number] [place] 00:00:00 00:00:00 M, GURPREET 157 Method i 2021-03-05 2021-03-05 Outpatient JOSHI, [facility] [id number] [place] 00:00:00 00:00:00 SPRING 401 Method i 2021-01-29 2021-01-29 Outpatient CATALINO, [facility] [id number] [place] 00:00:00 00:00:00 ACE 560 Method i 2021-01-26 2021-01-26 Outpatient CATALINO, [facility] [id number] [place] 00:00:00 00:00:00 ACE 377 Method i 2020-12-22 2020-12-22 Outpatient R [facility] [id number] Univers 13:00:00 13:00:00 [id number] [facility] 2020-12-04 2020-12-04 Outpatient JOSHI, [facility] [id number] [place] 00:00:00 00:00:00 SPRING 945 Method i 2020-11-21 2020-11-21 Outpatient R GREEN, LIZETH [facility] [id number] Univers 14:00:00 14:00:00 [id number] [facility] 2020-10-23 2020-10-23 Outpatient [facility] [id number] [place] 00:00:00 00:00:00 888 Method i 2020-10-10 2020-10-10 Outpatient R GREEN, LIZETH [facility] [id number] Univers 15:00:00 15:00:00 [id number] [facility] 2020-10-10 2020-10-10 Outpatient R GREEN, LIZETH [facility] [id number] [facility] 15:00:00 15:00:00 [facility] 2020-09-04 2020-09-04 Outpatient JOSHI, [facility] [id number] [place] 00:00:00 00:00:00 SPRING [address] 2020-09-04 2020-09-04 Outpatient MADELYN, [facility] [id number] [place] 00:00:00 00:00:00 SPRING [address] 2020-08-11 2020-08-11 Telephone Christian, [facility] [id number] [facility] 00:00:00 00:00:00 [facility] [id number] ity of [place] 4.2.7.2.686 Missael as Professio [phone] Sd dical nal 0[address] One 2020-08-11 2020-08-11 Telephone Christian, [facility] [id number] 00:00:00 00:00:00 [facility] [id number] [place] 4.2.7.2.686 Professio [phone] nal [facility] Office Building One 2020-08-10 2020-08-10 Telephone Christian, [facility] [id number] [facility] 00:00:00 00:00:00 [facility] [id number] ity [place] 4.2.7.2.686 Missael as Professio [phone] Sd dical nal [address] [place] Office [address] One 2020-08-10 2020-08-10 Telephone Christian, [facility] [id number] [id number] 00:00:00 00:00:00 [facility] 350.1.13.10 [place] 4.2.7.2.686 Professio [phone] nal [facility] Office Building One 2020-08-08 2020-08-08 Laboratory Lab, Adc [facility] Pob I CAMB 1.2. [id number] [id number] [facility] 16:17:18 16:37:18 Only Aneudy Ruiz Health 350.1.13.10 ity of [place] 4.2.7.2.686 Missael as Professio [phone] Sd dical nal 0[address] [place] Office [address] One 2020-08-08 2020-08-08 Laboratory Lab, Adc [facility] 1.2.840.114 [id number] 16:17:18 16:37:18 Only Fam Pob I Health 350.1.13.10 [place] 4.2.7.2.686 [facility] [phone] nal 044 Office Building One 2020-08-08 2020-08-08 Outpatient R [facility] [id number] Univers 16:20:00 16:20:00 [id number] y [facility] 2020-08-08 2020-08-08 Outpatient R SARA, [facility] [id number] Univers 16:20:00 16:20:00 ANEUDY [facility] 2020-07-16 2020-07-16 Outpatient DIANE, [facility] [id number] [place] 00:00:00 00:00:00 TITA 702 Sd thodi 2020-06-25 2020-06-25 Outpatient [facility] [id number] [place] 00:00:00 00:00:00 502 Method i 2020-06-03 2020-06-03 Outpatient JOSHI, [facility] [id number] [place] 00:00:00 00:00:00 SPRING 015 Method i 2020-05-28 2020-05-28 Outpatient CATALINO, [facility] [id number] [place] 00:00:00 00:00:00 ACE 287 Method i 2020-05-26 2020-05-26 [facility] [id number] Univers 15:00:00 23:59:00 Encounter Quita Santanaton 350.1.13.10 ity [facility] 4.2.7.2.686 [facility] [id number] [facility] 806 Branch 2020-05-26 2020-05-26 [facility] [id number] 15:00:00 23:59:00 Encounter Quita Linton [place] 350.1.13.10 [place] 4.2.7.2.686 [place] [id number] 2020-05-26 2020-05-26 [facility] [id number] Q-20 Univers 15:00:00 15:00:00 QUITA [id number] [facility] 2020-05-26 2020-05-26 Outpatient R MIKAEL, [facility] [id number] [facility] 00:00:00 00:00:00 QUITA [facility] 2020-05-23 2020-05-23 Outpatient CATALINO, [facility] [id number] [place] 00:00:00 00:00:00 ACE 104 Method i 2020-05-22 2020-05-22 Outpatient CATALINO, [facility] [id number] [place] 00:00:00 00:00:[address] 2019-12-06 2019-12-06 Office MOIZ Carrera 1.2.840.[id number] [place] [address] 09:02:16 09:17:16 Visit Sam P AMBULATOR 350.1.13.21 College Y 0.2.7.2.686 of [id number] [facility] 300 e 2019-12-06 2019-12-06 Office MOIZ Carrera 1.2.840.114 [id number] 09:02:16 09:17:16 Visit Sam P AMBULATOR 350.1.13.21 Y 0.2.7.2.686 [id number] 300 2019-10-29 2019-10-29 Outpatient ZULEYMAANALISAJules, [facility] [id number] [place] 00:00:00 00:00:00 QUITA 741 Method i 2019-10-29 2019-10-29 Outpatient CATALINO, [facility] [id number] [place] 00:00:00 00:00:00 ACE 156 Method i 2019-10-08 2019-10-08 Outpatient [facility] [id number] [place] 00:00:00 00:00:00 394 Method i 2019-08-09 2019-08-09 Outpatient MADELYN, [facility] [id number] [place] 00:00:00 00:00:00 SPRING [address] 2019-08-03 2019-08-03 [facility] 1.2.534.030 [id number] [facility] 00:00:00 00:00:00 Raina Do [facility] 350.1.13.10 i ty of [place] 4.2.7.2.686 Missael as Professio [phone] [address] Office Building One 2019-08-03 2019-08-03 [facility] [id number] [id number] 00:00:00 00:00:00 Raina Do Health 350.1.13.10 [place] 4.2.7.2.686 Professio [phone] [place] [address] [address] One 2019-08-02 2019-08-02 [facility] 1.2.840.114 [id number] Univers 00:00:00 00:00:00 [facility] 350.1.13.10 it y of [place] 4.2.7.2.686 Missael as Professio [phone] [address] Office Building One 2019-08-02 2019-08-02 [facility] 1.2.840.114 [id number] 00:00:00 00:00:00 [facility] 350.1.13.10 [place] 4.2.7.2.686 Professio [phone] [place] [address] [address] 2019-08-01 2019-08-01 Urgent Pob1, Acute Care Clinic [facility] 1. 2.840.114 [id number] [facility] 14:44:29 16:09:59 Care Keenan [facility] 350.1.13.10 ity of [place] 4.2.7.2.686 Missael as Professio [phone] [address] Office [address] One 2019-08-01 2019-08-01 Urgent Pob1, Acute [facility] 1.2.840.114 [id number] 14:44:29 16:09:59 [facility] 350.1.13.10 [place] 4.2.7.2.686 Professio [phone] [place] [address] Office [address] One 2019-08-01 2019-08-01 [facility] [id number] [facility] 14:40:00 14:40:00 JL beltran of [facility] 2017-01-10 2017-01-12 Inpatient [facility] [id number] [facility] 10:10:00 18:00:00 r [place] 03 l [facility] 2015-05-30 2015-05-30 OBS Day [facility] [id number] 975 [place] 12:30:00 18:35:00 Surgery r [place] 01 l [facility] 2015-02-28 2015-02-28 OBS Day [facility], [facility] [id number] 975 [place] 12:35:00 20:10:00 Surgery r [place] 00 l [facility] Results Test Description Test Time Test Comments Results Result Comments Source SARS-CoV-2 (COVID-19) RNA [Presence] in Respiratory sp ecimen by 2021-01-26 17:39:21 MAURICE with probe detection Test Item Value Reference Range Interpretation Comme nts SARS-CoV-2 (COVID-19) RNA [Presence] in Respiratory Not detected No t-Detected specimen by MAURICE with probe detection (test code = 88110-6) Whether patient is employed in a healthcare setting (test code = 16334-7) Whether the patient has symptoms related to condition of interest (test code = 00844-9) Patient was hospitalized because of this condition (test code = 81203-9) Whether the patient was admitted to intensive care unit (ICU) for condition of interest (test code = 73355-6) Whether patient resides in a congregate care setting (test code = 64596-5) US RETROPERITONEAL [id number] 22:32:22No renal mass is identified. If highly suspicious for renal mass, across-sectional imaging can be performed.US RETROPERITONEAL COMPLETE 05/26/2020 3:29 PM HISTORY: Renal mass Please comment on the renal blood flow if possible..Patient reports growing right renal mass. COMPARISON: None. FINDINGS: RIGHT KIDNEY: Length of 12.0 cm. Normal cortical thickness and echotexture.No hydronephrosis. The parenchymal blood flow is grossly normal on colorDoppler mapping. No mass identified on in the right kidney. An isoechoicarea in the mid kidney may represent hypertrophy of column of Henrik. LEFT KIDNEY: Length of 10.7 cm. Normal cortical thickness and echotexture.No hydronephrosis. Scattered echogenic foci within parenchyma may representfat or pointed calcification. The parenchymal blood flow is grossly normalon color Doppler mapping. BLADDER: Unremarkable. [facility], Radiant Results Inft User - 05/26/2020 4:33PM CSTUS RETROPERITONEAL COMPLETE 05/26/2020 3:29 PMHISTORY: Renal mass Please comment on the renal blood flow if possible..Patient reports growing right renal mass.COMPARISON: None.FINDINGS: RIGHT KIDNEY: Length of 12.0 cm. Normal cortical thickness and echotexture.No hydronephrosis. The parenchymal blood flow is grossly normal on colorDoppler mapping. No mass identified on in the right kidney. An isoechoicarea in the mid kidney may represent hypertrophy of column of Henrik.LEFT KIDNEY: Length of 10.7 cm. Normal cortical thickness and echotexture.No hydronephrosis. Scattered echogenic foci within parenchyma may representfat or pointed calcification. The parenchymal blood flow is grossly normalon color Doppler mapping. BLADDER: Unremarkable.IMPRESSIONNo renal mass is identified. If highly suspicious for renal mass, across-sectional imaging can be performed.[facility] ([facility]OVID-[facility]) RNA [Presence] in Respiratory specimen by MAURICE with probe [id number] 19:48:19 Test Item Value Reference Range Interpretation Comments SARS-CoV-2 (COVID-19) RNA Not detected Not-Detected [Presence] in Respiratory specimen by MAURICE with probe detection (test code = 00299-0) CORONAVIRUS COVID-19 [id number] 02:42:00 Test Item Value Reference Range Interpretation Comments SARS-CoV-2 (test code = Not Detected Not Detected 29203-4) YUNIOR (test code = YUNIOR) [employer] SARS-CoV-2 kit is used for this assay. It is a real-time (rt) reverse transcriptase (RT) polymerase chain reaction (PCR) test intended for the qualitative detection of nucleic acid from the SARS-CoV-2 in nasopharyngeal (CHEMICAL OPERATIONS SPECIALIST) and oropharyngeal (OP) swabs. It is used under Emergency Use Authorization (EUA) by FDA. The limit of detection (LOD) of the assay is 100 virus copies/mL. False positive results may occur. ?A negative result does not rule out the presence of PCR inhibitors in the patient specimen or SARS-CoV-2 virus RNA concentrations below the limit of detection by the assay. Test results should not be used as the sole basis for patient management decisions. Lab Interpretation Normal (test code = 78640-6) [facility] [id number] 14:42:00 Test Item Value Reference Range Interpretation Comments HEPATITIS B SURFACE ANTIBODY < mIU/mL <8.0 (BEAKER) (test code = 647) HEPATITIS A ANTIBODY, [id number] 14:42:00 Test Item Value Reference Range Interpretation Comments HEPATITIS A IGG ANTIBODY (BEAKER) Reactive Nonreactive A (test code = 2797) HEPATITIS B SURFACE [id number] 14:23:00 Test Item Value Reference Range Interpretation Comments HEPATITIS B SURFACE ANTIGEN (2) Nonreactive Nonreactive (BEAKER) (test code = 2585) HEPATITIS C [id number] 14:23:00 Test Item Value Reference Range Interpretation Comments HEPATITIS C ANTIBODY (BEAKER) Nonreactive Nonreactive (test code = 367) HEPATITIS B CORE ANTIBODY, [id number] 14:23:00 Test Item Value Reference Range Interpretation Comments HEPATITIS B CORE TOTAL ANTIBODY Nonreactive Nonreactive (BEAKER) (test code = 497) HEPATIC FUNCTION [id number] 14:04:00 Test Item Value Reference Range Interpretation [...] = 30 U/L 6-55 347) BASIC METABOLIC [id number] 14:04:00 Test Item Value Reference Range Interpretation [...] 697) EGFR (BEAKER) (test 88 mL/min/1.73 ESTIMA HAMILTON GFR IS code = 1092) sq m NOT ACCURATE CREATININE CLEARANCE IN PREDICTING GLOMERULAR FILTRATION RATE . ESTIMATED GFR I S NOT APPLICABLE FOR DIALYSIS PATIEN TS. PROTHROMBIN [id number] 13:45:00 Test Item Value Reference Range Interpretation [...] (BEAKER) (test code = 2801) COMPREHENSIVE METABOLIC [id number] 12:54:00 Test Item Value Reference Range Interpretation [...] hemolyzed EGFR (BEAKER) (test 88 mL/min/1.73 ESTIMA HAMILTON GFR IS code = 1092) sq m NOT ACCURATE CREATININE CLEARANCE IN PREDICTING GLOMERULAR FILTRATION RATE . ESTIMATED GFR I S NOT APPLICABLE FOR DIALYSIS PATIEN TS. CBC W/PLT COUNT & AUTO [id number] 12:23:00 Test Item Value Reference Range Interpretation [...] 0-1 PERCENT (BEAKER) (test code = 2801) [id number] 09:56:00 Test Item Value Reference Range Interpretation Comments Platelet (test code = Platelet) 157 133-450 [id number] 09:56:00 Test Item Value Reference Range Interpretation Comments Hct (test code = Hct) 26.3 36.0-48.0 [facility] [id number] 09:56:00 Test Item Value Reference Range Interpretation Comments Hgb (test code = Hgb) 9.2 12.0-16.[address] [facility] [employer] [id number] 09:50:00 Test Item Value Reference Range Interpretation Comments eGFR (test code = eGFR) 96 [facility] [id number] 09:50:00 Test Item Value Reference Range Interpretation Comments CO2 (test code = CO2) 24 24-32 [facility] [id number] 09:50:00 Test Item Value Reference Range Interpretation Comments Calcium Lvl (test code = Calcium Lvl) 8.1 8.5-10.5 [facility]2017-09-19 09:50:00 Test Item Value Reference Range Interpretation Comments Creatinine Lvl (test code = Creatinine 0.60 0.50-1.40 Lvl) [facility]2017-09-19 09:50:00 Test Item Value Reference Range Interpretation Comments AGAP (test code = AGAP) 15.0 10.0-20.0 [place] [id number] 09:50:00 Test Item Value Reference Range Interpretation Comments BUN (test code = BUN) 6 7-22 [place] [id number] 09:50:00 Test Item Value Reference Range Interpretation Comments Glucose Lvl (test code = Glucose Lvl) 131 70-99 [place] [id number] 09:50:00 Test Item Value Reference Range Interpretation Comments Potassium Lvl (test code = Potassium 4.0 3.5-5.1 Lvl) [facility]2017-09-19 09:50:00 Test Item Value Reference Range Interpretation Comments Sodium Lvl (test code = Sodium Lvl) 134 135-145 [facility]2017-09-19 09:50:00 Test Item Value Reference Range Interpretation Comments Chloride Lvl (test code = Chloride Lvl) 99 95-109 [place] [id number] 09:50:00 Test Item Value Reference Range Interpretation Comments INR (test code = INR) 1.07 0.85-1.17 [place] [address]-09-19 09:50:00 Test Item Value Reference Range Interpretation Comments PT (test code = PT) 14.1 s 12.0-14.7 [place] [address]-09-19 09:50:00 Test Item Value Reference Range Interpretation Comments WBC (test code = WBC) 8.9 3.7-10.4 [place] [address]-09-19 09:50:00 Test Item Value Reference Range Interpretation Comments RBC (test code = RBC) 2.92 4.20-5.40 [place] [id number] 09:50:00 Test Item Value Reference Range Interpretation Comments Hgb (test code = Hgb) 8.9 12.0-16.0 [place] [address]-09-19 09:50:00 Test Item Value Reference Range Interpretation Comments MCV (test code = MCV) 88.3 80.0-98.0 [id number] 09:50:00 Test Item Value Reference Range Interpretation Comments Hct (test code = Hct) 25.8 36.0-48.0 [facility] Ho[id number] 09:50:00 Test Item Value Reference Range Interpretation Comments RDW (test code = RDW) 15.4 11.5-14.5 [facility] Ho[id number] 09:50:00 Test Item Value Reference Range Interpretation Comments MCHC (test code = MCHC) 34.6 32.0-36.0 [facility] Ho[id number] 09:50:00 Test Item Value Reference Range Interpretation Comments Platelet (test code = Platelet) 161 133-450 [facility] HospitalKfxtthcKYHAPFDODX9786-27-28 09:50:00 Test Item Value Reference Range Interpretation Comments MCH (test code = MCH) 30.6 pg 27.0-31.0 [facility] HospitalBzfsgydTHJERVULGJ5480-21-48 09:50:00 Test Item Value Reference Range Interpretation Comments MPV (test code = MPV) 8.5 7.4-10.4 [facility] H[id number] 09:50:00 Test Item Value Reference Range Interpretation Comments Segs-Bands # (test code = Segs-Bands #) 5.4 1.5-8.1 [place] [id number] 09:50:00 Test Item Value Reference Range Interpretation Comments Lymphocytes # (test code = Lymphocytes 1.8 1.0-5.5 #) [facility] [id number] 09:50:00 Test Item Value Reference Range Interpretation Comments Monocytes # (test code 1.6 See_Comment [Aut omated message] The = Monocytes #) system which generated this result tra nsmitted reference range : <=0.8. The reference r luana was not used to int erpret this result as normal/abnormal . [facility] HospitalGxxkkbkMPYQXOQOVH9460-93-74 09:50:00 Test Item Value Reference Range Interpretation Comments Eosinophils # (test code 0.1 See_Comment [A utomated message] The = Eosinophils #) system whic h generated this result tra nsmitted reference range : <=0.5. The reference r luana was not used to int erpret this result as normal/abnormal . [facility] Hos[id number] 09:50:00 Test Item Value Reference Range Interpretation Comments Eosinophils (test code = 0.6 See_Comment [A utomated message] The Eosinophils) system which ge nerated this result tra nsmitted reference range : <=4.0. The reference r luana was not used to int erpret this result as normal/abnormal . [facility]nisrbQSTBXOBEBR0540-26-[facility] 09:50:00 Test Item Value Reference Range Interpretation Comments Basophils (test code = 0.4 See_Comment [Aut omated message] The Basophils) system which ge nerated this result tra nsmitted reference range : <=1.0. The reference r luana was not used to int erpret this result as normal/abnormal . [facility]MrxtjuuGDUGYPUEPQ4396-25-90 09:50:00 Test Item Value Reference Range Interpretation Comments Plt Morph (test code = Normal (01/11/17 4:50 Plt Morph) AM) [facility]GmtbilmTUSXBDIRNI1322-15-52 09:50:00 Test Item Value Reference Range Interpretation Comments RBC Morph (test code = Normal (01/11/17 4:50 RBC Morph) AM) [facility] HospitalVxcrfrdKQKIBFXLPD2604-69-74 09:50:00 Test Item Value Reference Range Interpretation Comments Segs (test code = Segs) 61.3 45.0-75.0 [facility] HospitalHscdgomNDBYUFGNWU5965-24-73 09:50:00 Test Item Value Reference Range Interpretation Comments Monocytes (test code = Monocytes) 17.5 2.0-12.0 [facility] HospitalKtbwirvHAIESTCXXG8006-77-20 09:50:00 Test Item Value Reference Range Interpretation Comments Lymphocytes (test code = Lymphocytes) 20.2 20.0-40.0 [facility]xLBIGQXILBUAV5186-84-94 10:38:00 Test Item Value Reference Range Interpretation Comments AGAP (test code = AGAP) 7.8 10.0-20.0 [facility]WestJcijvloZYMGQYHNFAEC4248-79-91 10:38:00 Test Item Value Reference Range Interpretation Comments eGFR (test code = eGFR) 91 [facility]WestFaxklcfDQGGPHWZSIDT1407-57-76 10:38:00 Test Item Value Reference Range Interpretation Comments Calcium Lvl (test code = Calcium Lvl) 8.9 8.5-10.5 [facility]ImxnwjyMDDKRGUUIRZK8197-29-40 10:38:00 Test Item Value Reference Range Interpretation Comments CO2 (test code = CO2) 31 24-32 [facility]WestIktmojkPRFWJCMYKDNF3462-55-68 10:38:00 Test Item Value Reference Range Interpretation Comments Chloride Lvl (test code = Chloride Lvl) 97 95-109 [facility]WestAfhovshBQZBOYVZTZLM6385-19-28 10:38:00 Test Item Value Reference Range Interpretation Comments Potassium Lvl (test code = Potassium 3.8 3.5-5.1 Lvl) [facility]WestUhwjglzNFGYHIFRVBZG2193-32-96 10:38:00 Test Item Value Reference Range Interpretation Comments Sodium Lvl (test code = Sodium Lvl) 132 135-145 [facility]WestDahnyuwFNGQYFSTWRTD0062-63-17 10:38:00 Test Item Value Reference Range Interpretation Comments Glucose Lvl (test code = Glucose Lvl) 95 70-99 [facility]WestMpbntaoBSBNLRFYOKMU5384-94-42 10:38:00 Test Item Value Reference Range Interpretation Comments Creatinine Lvl (test code = Creatinine 0.70 0.50-1.40 Lvl) [facility]WestZpafyotHAZEUVKXYNBY7475-56-73 10:38:00 Test Item Value Reference Range Interpretation Comments BUN (test code = BUN) 6 7-22 [facility]GprfbueCMHJMWHMKP8002-64-78 10:38:00 Test Item Value Reference Range Interpretation Comments RDW (test code = RDW) 15.4 11.5-14.5 [facility] HospitalEubltaaTAALXBUJKB2848-62-45 10:38:00 Test Item Value Reference Range Interpretation Comments Platelet (test code = Platelet) 197 133-450 [facility] HospitalXoncwqmSBAEPVEBRO4352-55-68 10:38:00 Test Item Value Reference Range Interpretation Comments WBC (test code = WBC) 4.7 3.7-10.4 [facility] HospitalHmbycxxLHLIIXFNMN4832-41-70 10:38:00 Test Item Value Reference Range Interpretation Comments MCH (test code = MCH) 30.4 pg 27.0-31.0 [facility] HospitalCykmoebZPBMYCPJFI9352-31-42 10:38:00 Test Item Value Reference Range Interpretation Comments MCV (test code = MCV) 87.3 80.0-98.0 [facility] HospitalTfibfuoVGPXZFZMGL6090-55-37 10:38:00 Test Item Value Reference Range Interpretation Comments Hct (test code = Hct) 36.9 36.0-48.0 [facility] HospitalNvgcwdoHPFMGHYTLP1360-73-08 10:38:00 Test Item Value Reference Range Interpretation Comments RBC (test code = RBC) 4.23 4.20-5.40 [facility] HospitalObzodfkPLPNDIYOHY0852-76-69 10:38:00 Test Item Value Reference Range Interpretation Comments Hgb (test code = Hgb) 12.9 12.0-16.0 [facility] HospitalWpavtroZQATTUXYJW4281-94-64 10:38:00 Test Item Value Reference Range Interpretation Comments MCHC (test code = MCHC) 34.8 32.0-36.0 [facility] HospitalPpksqxqRPFIOODMRA5317-36-58 10:38:00 Test Item Value Reference Range Interpretation Comments MPV (test code = MPV) 7.9 7.4-10.4 [facility] HospitalPxsxkclROYKJCLPPK7434-22-93 10:38:00 Test Item Value Reference Range Interpretation Comments Eosinophils (test code = 6.4 See_Comment [A utomated message] The Eosinophils) system which ge nerated this result tra nsmitted reference range : <=4.0. The reference r luana was not used to int erpret this result as normal/abnormal . [facility] HospitalCblzhlpQQSDNPOCJL6881-36-18 10:38:00 Test Item Value Reference Range Interpretation Comments Monocytes (test code = Monocytes) 20.6 2.0-12.0 [facility] HospitalYlisnduLSYYZARTOL9192-88-01 10:38:00 Test Item Value Reference Range Interpretation Comments Lymphocytes (test code = Lymphocytes) 38.0 20.0-40.0 [facility] HospitalGbvpesuCVHQKODGRK4387-29-24 10:38:00 Test Item Value Reference Range Interpretation Comments Segs-Bands # (test code = Segs-Bands #) 1.6 1.5-8.1 [facility] HospitalYksnefwDFSWNENNEG4295-80-00 10:38:00 Test Item Value Reference Range Interpretation Comments Basophils (test code = 1.4 See_Comment [Aut omated message] The Basophils) system which ge nerated this result tra nsmitted reference range : <=1.0. The reference r luana was not used to int erpret this result as normal/abnormal . [facility] HospitalUeovzezAOZPGLJSTI7858-10-17 10:38:00 Test Item Value Reference Range Interpretation Comments Eosinophils # (test code 0.3 See_Comment [A utomated message] The = Eosinophils #) system whic h generated this result tra nsmitted reference range : <=0.5. The reference r luana was not used to int erpret this result as normal/abnormal . [facility] HospitalIgkmpdzPNDKBRGYYB1647-65-10 10:38:00 Test Item Value Reference Range Interpretation Comments Lymphocytes # (test code = Lymphocytes 1.8 1.0-5.5 #) [facility] HospitalSloaiekDNGWRIJRTB9854-69-83 10:38:00 Test Item Value Reference Range Interpretation Comments Monocytes # (test code 1.0 See_Comment [Aut omated message] The = Monocytes #) system which generated this result tra nsmitted reference range : <=0.8. The reference r luana was not used to int erpret this result as normal/abnormal . [facility] HospitalVvrzqrhCYZOYBLCBJ0304-99-07 10:38:00 Test Item Value Reference Range Interpretation Comments Basophils # (test code 0.1 See_Comment [Aut omated message] The = Basophils #) system which generated this result tra nsmitted reference range : <=0.2. The reference r luana was not used to int erpret this result as normal/abnormal . [facility] HospitalKnxhaqmGJWGINYKCG9113-98-69 10:38:00 Test Item Value Reference Range Interpretation Comments Plt Morph (test code = Normal (01/10/17 5:38 Plt Morph) AM) [facility] HospitalJpyghydLWNFTQBQID5290-82-10 10:38:00 Test Item Value Reference Range Interpretation Comments RBC Morph (test code = Normal (01/10/17 5:38 RBC Morph) AM) [facility] HospitalCdheuvoQREMJJWYAR3897-90-31 10:38:00 Test Item Value Reference Range Interpretation Comments Segs (test code = Segs) 33.6 45.0-75.0 [facility] AND [id number] 10:38:00 Test Item Value Reference Range Interpretation Comments UA Sq Epi (test code = None Seen (01/10/17 5:38 UA Sq Epi) AM) [facility] AND [id number] 10:38:00 Test Item Value Reference Range Interpretation Comments UA Leuk Est (test code Small *ABN*(01/10/17 = UA Leuk Est) 5:38 AM) [facility] AND [id number] 10:38:00 Test Item Value Reference Range Interpretation Comments UA WBC (test code = 1 See_Comment [Automa hamilton message] The UA WBC) system which ge nerated this result transmit hamilton reference range : <=5. The reference range was not used to interpr et this result as edel l/abnormal. [facility] AND [id number] 10:38:00 Test Item Value Reference Range Interpretation Comments UA Nitrite (test code Negative (01/10/17 5:38 = UA Nitrite) AM) [facility] AND [id number] 10:38:00 Test Item Value Reference Range Interpretation Comments UA Bili (test code = Negative *NA*(01/10/17 UA Bili) 5:38 AM) [facility] AND [id number] 10:38:00 Test Item Value Reference Range Interpretation Comments UA Blood (test code = Negative (01/10/17 5:38 UA Blood) AM) [facility] AND [id number] 10:38:00 Test Item Value Reference Range Interpretation Comments UA Urobilinogen (test code = UA 0.2 0.1-1.0 Urobilinogen) [facility] AND [id number] 10:38:00 Test Item Value Reference Range Interpretation Comments UA Color (test code = Yellow *NA*(01/10/17 UA Color) 5:38 AM) [facility] AND [id number] 10:38:00 Test Item Value Reference Range Interpretation Comments UA pH (test code = UA pH) 7.0 1 5.0-8.0 [facility] AND [id number] 10:38:00 Test Item Value Reference Range Interpretation Comments UA Protein (test code Negative (01/10/17 5:38 = UA Protein) AM) [facility] AND [id number] 10:38:00 Test Item Value Reference Range Interpretation Comments UA Ketones (test code Negative *NA*(01/10/17 = UA Ketones) 5:38 AM) [facility] AND [id number] 10:38:00 Test Item Value Reference Range Interpretation Comments UA Glucose (test code Negative (01/10/17 5:38 = [facility]A Glucose) AM) [facility] [id number] 10:38:00 Test Item Value Reference Range Interpretation Comments UA Turbidity (test code = Clear (01/10/17 5:38 UA Turbidity) AM) [facility] [id number] 10:38:00 Test Item Value Reference Range Interpretation Comments UA Spec Grav (test code *NA*(01/10/17 5:38 AM) = UA Spec Grav) [facility]annSEDIMENTATION [id number] 15:52:00 Test Item Value Reference Range Interpretation Comments SEDIMENTATION RATE, ERYTHROCYTE 48 mm/HR 0-30 H (BEAKER) (test code = 766) COMPREHENSIVE METABOLIC [id number] 14:48:00 Test Item Value Reference Range Interpretation [...] 347) EGFR (BEAKER) (test 92 mL/min/1.73 ESTIMA HAMILTON GFR IS code = 1092) sq m NOT ACCURATE CREATININE CLEARANCE IN PREDICTING GLOMERULAR FILTRATION RATE . ESTIMATED GFR I S NOT APPLICABLE FOR DIALYSIS PATIEN TS. CBC W/PLT COUNT & AUTO [id number] 14:36:00 Test Item Value Reference Range Interpretation [...] K/ L 0.00-0.20 (test code = 417) 0.00[id number] 12:51:00 Test Item Value Reference Range Interpretation Comments POC BUN (test code = POC BUN) 7 - [facility]2016-02-05 12:51:00 Test Item Value Reference Range Interpretation Comments POC Hematocrit (test code = POC 43.0 36.0-48.0 Hematocrit) [facility]2016-02-05 12:51:00 Test Item Value Reference Range Interpretation Comments POC Glucose (test code = POC Glucose) 124 70-99 [facility]2016-02-05 12:51:00 Test Item Value Reference Range Interpretation Comments POC Sodium (test code = POC Sodium) 132 135-145 [facility]2016-02-05 12:51:00 Test Item Value Reference Range Interpretation Comments POC Chloride (test code = POC Chloride) 93 95-109 [facility]2016-02-05 12:51:00 Test Item Value Reference Range Interpretation Comments POC Potassium (test code = POC 4.1 3.5-5.1 Potassium) [facility]2016-02-05 12:51:00 Test Item Value Reference Range Interpretation Comments POC Hemoglobin (test code = POC 14.6 12.0-16.0 Hemoglobin) [facility]2015-11-06 13:20:00 Test Item Value Reference Range Interpretation Comments POC BUN (test code = POC BUN) 9 11-13 [facility]2015-11-06 13:20:00 Test Item Value Reference Range Interpretation Comments POC Chloride (test code = POC Chloride) 95 95-109 [facility]2015-11-06 13:20:00 Test Item Value Reference Range Interpretation Comments POC Potassium (test code = POC 4.9 3.5-5.1 Potassium) [facility]2015-11-06 13:20:00 Test Item Value Reference Range Interpretation Comments POC Sodium (test code = POC Sodium) 133 135-145 [facility]2015-11-06 13:20:00 Test Item Value Reference Range Interpretation Comments POC Hematocrit (test code = POC 44.0 36.0-48.0 Hematocrit) [facility]2015-11-06 13:20:00 Test Item Value Reference Range Interpretation Comments POC Hemoglobin (test code = POC 15.0 12.0-16.0 Hemoglobin) [facility]2015-11-06 13:20:00 Test Item Value Reference Range Interpretation Comments POC Glucose (test code = POC Glucose) 106 70-99 [facility] Hos[id number] 13:18:00 Test Item Value Reference Range Interpretation Comments POC INR (test code = POC INR) 1.0 0.9-1.2 [facility] HospitalQzntnzbBQBFEGXBPO6520-30-36 13:18:00 Test Item Value Reference Range Interpretation Comments POC PT (test code = POC PT) 11.9 s 12.0-14.7 [facility]
--- NOTE | 2021-07-03 19:50 | ER ---
Nurse's Notes [facility] Name: Linda Miramontes Age: 70 yrs Sex: Female : 1950 Arrival Date: 07/03/2021 Time: 15:56 Bed 24 Private MD: Diagnosis: Presentation: 07/03 16:02 Chief complaint: Patient states: she started having pain in her right middle finger ap3 yesterday. The pain has since migrated into her right hand and radiates into her right forearm. Patient denies being bit by anything or any trauma to the hand. Coronavirus screen: At this time, the client does not indicate any symptoms associated with coronavirus-19. Ebola Screen: No symptoms or risks identified at this time. Initial Sepsis Screen: Does the patient meet any 2 criteria? Yes Does the patient have a suspected source of infection? No. Patient's initial sepsis screen is negative. Risk Assessment: Do you want to hurt yourself or someone else? Patient reports no desire to harm self or others. Onset of symptoms was July 02, 2021. 16:02 Method Of Arrival: Ambulatory ap3 16:02 Acuity: JOBY 4 ap3 Triage Assessment: 16:12 General: Appears in no apparent distress. comfortable, Behavior is calm, cooperative, ap3 appropriate for age. Pain: Complains of pain in right middle finger and dorsum of right hand Pain radiates to right arm. Neuro: Level of Consciousness is awake, alert, obeys commands, Oriented to person, place, time, situation, Appropriate for age. Respiratory: Airway is patent Respiratory effort is even, unlabored, Respiratory pattern is regular, symmetrical. Derm:. Musculoskeletal: Swelling present in right hand. Historical: - Allergies: 16:04 Bactrim (Facial Swelling); ap3 16:04 Codeine; ap3 - Home Meds: 16:04 Lexapro 40 mg Oral [Active]; Hydrocodone-Acetaminophen 5/500 Oral 1 cap every 4-6 hours ap3 for pain [Active]; metoclopramide HCl 10 mg Oral tab [Active]; Xanax 1 mg Oral tab [Active]; omeprazole 40 mg Oral cpDR [Active]; bupropion HCl 150 mg Oral Tb24 [Active]; Levsin 0.125 mg oral tab [Active]; Ambien 10 mg Oral tab [Active]; Potassium Chloride Oral [Active]; famotidine 40 mg Oral tab [Active]; metformin 1,000 mg Oral tab [Active]; amlodipine 2.5 mg tab [Active]; losartan 50 mg oral tab [Active]; doxepin 25 mg Oral cap [Active]; trazodone 100 mg Oral tab [Active]; - PMHx: 16:04 Cirrhosis; Diabetes - NIDDM; GERD; Hepatitis; Hypertension; Lupus; Migraines; ap3 Pneumonia; Polio; Raynauds; Sepsis; Sjogrenes; Crohn's disease; Irritable bowel syndrome; autoimmune hepatitis; - Immunization history:: Client reports receiving the 2nd dose of the Covid vaccine, and booster Flu vaccine is up to date. - Social history:: Smoking status: Patient denies any tobacco usage or history of. Screenin:13 Abuse screen: Denies threats or abuse. Nutritional screening: No deficits noted. ap3 Tuberculosis screening: No symptoms or risk factors identified. 16:13 Fall Risk None identified. Fall in past 12 months (25 points). No secondary diagnosis ap3 (0 pts). Ambulatory Aid- None/Bed Rest/Nurse Assist (0 pts). Gait- Normal/Bed Rest/Wheelchair (0 pts) Mental Status- Oriented to own ability (0 pts). Total [place] Fall Scale indicates Low Risk Score (25-44 pts). Fall prevention measures have been instituted. Placed close to Nursing Station Frequent Obs/Assesments occuring As available Patient and Family Educated on Fall Prevention Program and strategies. Assessment: 19:50 Reassessment: The patient left without being seen from the waiting room. She was called st1 4 times and did not appear. Vital Signs: 16:02 BP 140 / 72; Pulse 71; Resp 18; Temp 97.9; Pulse Ox 99% ; Weight 83.91 kg; Height 5 ft. ap3 6 in. (167.64 cm); Pain 10/10; 16:02 Body Mass Index 29.86 (83.91 kg, 167.64 cm) ap3 ED Course: 15:56 Patient arrived in ED. kz 16:04 Triage completed. ap3 16:06 Mo Egan MD is Attending Physician. kdr 16:13 Arm band placed on right wrist. ap3 16:13 Patient has correct armband on for positive identification. Call light in reach. Pulse ap3 ox on. NIBP on. Door closed. Noise minimized. 19:40 Roger Esquivel MD is Attending Physician. rn Administered Medications: No medications were administered Outcome: 19:51 Patient left the ED. st1 19:59 Patient left the ED. st1 Signatures: Mo Egan MD MD kdr Nieto, Roman, MD MD rn Prokisch, Amanda, RN RN ap3 Tawana To RN RN st1 Vicki Wilson
--- NOTE | 2021-07-03 20:00 | EDPHYS ---
Physician Documentation [facility] Name: Linda Miramontes Age: 70 yrs Sex: Female : 1950 Arrival Date: 07/03/2021 Time: 15:56 Bed 24 Private MD: ED Physician Historical: - Allergies: 07/03 16:04 Bactrim (Facial Swelling); ap3 16:04 Codeine; ap3 - Home Meds: 16:04 Lexapro 40 mg Oral [Active]; Hydrocodone-Acetaminophen 5/500 Oral 1 cap every 4-6 hours ap3 for pain [Active]; metoclopramide HCl 10 mg Oral tab [Active]; Xanax 1 mg Oral tab [Active]; omeprazole 40 mg Oral cpDR [Active]; bupropion HCl 150 mg Oral Tb24 [Active]; Levsin 0.125 mg oral tab [Active]; Ambien 10 mg Oral tab [Active]; Potassium Chloride Oral [Active]; famotidine 40 mg Oral tab [Active]; metformin 1,000 mg Oral tab [Active]; amlodipine 2.5 mg tab [Active]; losartan 50 mg oral tab [Active]; doxepin 25 mg Oral cap [Active]; trazodone 100 mg Oral tab [Active]; - PMHx: 16:04 Cirrhosis; Diabetes - NIDDM; GERD; Hepatitis; Hypertension; Lupus; Migraines; ap3 Pneumonia; Polio; Raynauds; Sepsis; Sjogrenes; Crohn's disease; Irritable bowel syndrome; autoimmune hepatitis; - Immunization history:: Client reports receiving the 2nd dose of the Covid vaccine, and booster Flu vaccine is up to date. - Social history:: Smoking status: Patient denies any tobacco usage or history of. Vital Signs: 16:02 BP 140 / 72; Pulse 71; Resp 18; Temp 97.9; Pulse Ox 99% ; Weight 83.91 kg; Height 5 ft. ap3 6 in. (167.64 cm); Pain 10/10; 16:02 Body Mass Index 29.86 (83.91 kg, 167.64 cm) ap3 Administered Medications: No medications were administered Disposition Summary: 07/03/21 19:50 Eloped Disposition: before being seen by provider st1 Reason: (see nurse's notes) st1 Signatures: Roger Esquivel MD MD rn Prokisch, Amanda, RN RN ap3 Tawana To RN RN st1 Corrections: (The following items were deleted from the chart) 19:57 19:45 Patient medically screened. rashid rn
[2021-07-03 20:22] VITALS: BP 140/72; TEMP 97.9; O2SAT 99
== END 2021-07-03 19:59 | disposition left against medical advice (07) ==
LOC: ER 15:53
DX: Z53.21 Procedure and treatment not carried out due to patient leaving prior to being seen by health care provider (principal)
CPT/HCPCS: 99282

== ENCOUNTER 2023-03-03 14:28 | Emergency (ER) | payer OTHER ==
--- OUTSIDE RECORDS SUMMARY | 2023-03-03 14:40 | XMS REPORT | Continuity of Care Document ---
:1950 Author Organization [facility] t Address [address] [facility] [address] [place] [address] Care Team Providers Name Role Phone MONTY TORRES Primary Care Physician Unavailabl e Monty Torres Attending Clinician Unavailable Jolly Hernandez RN Attending Clinician Unavailable Catalino WARREN, Raza Treadwell Attending Clinician Shayan Cardona RN Attending Clinician Unavailable Leighton Griffin MA Attending Clinician Unavailable _[facility]_Chris_Johnny Attending Clinician Unavailable Carl Hallman MD Attending Clinician Odalis López MD Attending Clinician Kelly Garcia MD Attending Clinician Disha WARREN, Anna Lim Attending Clinician Pat WARREN, Timi Duval Attending Clinician [phone] Florian Del Cid MD Attending Clinician Darling Kelley MD Attending Clinician Ngozi WARREN, Tita Soto Attending Clinician [phone] Speedy WARREN, Corey Mendoza Attending Clinician [phone] Adi WARREN, Lamont Attending Clinician Afua WARREN, Amelia Frost Attending Clinician Castro WARREN, Daksha Bacon Attending Clinician Spring Joshi MD Attending Clinician FOG_A_Provider Attending Clinician Unavailable Brenden Daniels MD Attending Clinician BRENDEN DANIELS Attending Clinician Unavailable Marilyn WARREN, Sandro Dickerson Attending Clinician Belen Silva MD Attending Clinician Sandro BOO, Anup Joyce Attending Clinician [phone] Siva Perez Attending Clinician [phone] GURPREET RANGEL Attending Clinician Unavailable MD RAZA BAE Attending Clinician Unavailable LIZETH GREEN Attending Clinician Unavailable MD SPRING JOSHI Attending Clinician Unavailable Dasha Garcia Attending Clinician Lab, [facility] Po I Attending Clinician Unavailable Aneudy Honeycutt Attending Clinician ANEUDY MORELAND Attending Clinician Unavailable TITA CONTRERAS Attending Clinician Unavailable Quita Kee DO Attending Clinician QUITA KEE Attending Clinician Unavailable QUITA KEE Attending Clinician Unavailable Raina Chandler Attending Clinician Jl Hussein MD Attending Clinician Po, [facility] Attending Clinician Unavailable JL HUSSEIN Attending Clinician Unavailable ELDER RONDON Attending Clinician Unavailable SIVA PEREZ Attending Clinician Unavailable Justin Taylor Attending Clinician SPRING JOSHI Attending Clinician Unavailable _[facility]_Cherches_I Admitting Clinician Unavailable ODALIS LÓPEZ Admitting Clinician Unavailable DAKSHA CEDENO Admitting Clinician Unavailable MD KELLY GARCIA Admitting Clinician Unavailable FOG_A_Provider Admitting Clinician Unavailable BRENDEN DANIELS Admitting Clinician Unavailable RAZA BAE Admitting Clinician Unavailable MD RAZA BAE Admitting Clinician Unavailable MD SPRING JOSHI Admitting Clinician Unavailable Justin Taylor Admitting Clinician Payers Payer Name Policy Type Policy Number Effective Date Expiration Date S nunu AETNA (MEDICARE [id number] 2021 REPLACEMENT PPO) 00:00:00 [employer] MEDICARE ADV [id number] 2013 00:00:00 Problems Condition Condition Condition Status Onset Resolution Last Treating Co mments Source Name Details Category Date Date Treatment Clinician Date Gastrointe Gastrointe Disease Active 2022-04 M ethodi stinal stinal 0-08 st hemorrhage hemorrhage 00:00: Ho spita 00 l Melena Melena Disease Active 2022-04 Methodi 0-05 st 00:00: Hospita 00 l Anemia Anemia Disease Active 2022-04 Methodi 0-05 [facility] 00:00: Hospita 00 l Community Community Disease Active Met hodi acquired acquired [address] [facility] pneumonia pneumonia 00:00: Hosp jan 00 l Lower Lower Disease Active Methodi abdominal abdominal 9-21 st pain pain 00:00: Hospita 00 l Hallux Hallux Disease Active [facility] varus [facility] (acquired[facility] (acquired) 00:00: Me dical , right , right 00 Center foot foot Hallux Hallux Disease Active [facility] rigidus, rigidus, 5-02 [facility] right foot right foot 00:00: Me dical 00 Center Closed Closed Problem Active Ev fracture Fracture 2-07 Orthop e of right of Right 00:00: dic patella Patella 00 Sports Medicin e Pain of Pain of Problem Active Ev right knee Right Knee 1-30 Or thope joint Joint 00:00: dic 00 Sports Medicin e Irritable Irritable Disease Active 2021-04 Met hodi bowel bowel 2-07 st syndrome syndrome 00:00: Hospit a with with 00 l diarrhea diarrhea Systemic Systemic Disease Recurre 2021-04 [facility] lupus lupus nce 2-07 st erythemato erythemato 00:00: Ho spita delvin delvin 00 l Upper Upper Disease Active Methodi respirator respirator 7-20 st y tract y tract 00:00: Hospita infection infection 00 l Hypertensi Hypertensi Disease Active U nivers ve ve 4-08 ity of urgency, urgency, 00:00: [place] malignant malignant 00 [facility] kasey Branch Shortness Shortness Disease Active Uni vers of breath of breath 4-08 ity of 00:00: [place] [facility] Acute Acute Disease Active Univers viral viral 4-08 ity of syndrome syndrome 00:00: [place] [facility] Hypertensi Hypertensi Disease Active U nivers ve ve 4-08 ity of urgency, urgency, 00:00: [place] malignant malignant 00 [facility] kasey Branch Secondary Secondary Disease Recurre Me thodi Sjogren's Sjogren's nce 3-03 st syndrome syndrome 00:00: Hospit a 00 l Intractabl Intractabl Disease Recurre 2018-04 Overvie w: Methodi e migraine e migraine nce 2-28 Formattin without without 00:00: g of this Hospi ta aura and aura and 00 note l without without might be status status different migrainosu migrainosu from the s s original. As diagnosed by Dr. Siva Perez. Raynaud's Raynaud's Disease Recurre 2018-04 Me thodi disease disease nce 2-28 st without without 00:00: Hospita gangrene gangrene 00 l Insomnia Insomnia Disease Recurre 2018-04 Overview: M aleah due to due to nce 2-28 Formattin medical medical 00:00: g of this Hospi ta condition condition 00 note l might be different from the original. In addition to being kept awake and being awakened from sleep by pain I suspect that her anger and depressio n are also playing a role. 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 Diagnosis was made by liver biopsy changes showing numerous plasma cells with some bridging fibrosis. Positive ASMA at that time when diagnosis made. Treated with steroids and now on maintenan ce therapy with Imuran. The liver enzymes are near normal with no suggestio n of active autoimmun e hepatitis at this time. There was one episode of enzymes elevation in 2013 but more recently the ALT range has been in the 20s range. Will pull the liver biopsy slides for review. We will continue with Imuran for now. Immunity Immunity Disease Active 2017-04 [facility] status status [facility]04 [facility] testing testing 00[facility] Center N/A N/A Diagnosis Active 2017-01-07 Mem oria Active 01-06 11:27:00 l 01/06/2017 00:00: Jonathan mcdonald 00 [facility] M17.11 M17.11 Diagnosis Active 2017-01-17 Me moria Active 01-06 22:05:00 l 01/06/2017 00:00: Jonathan mcdonald 00 [facility] RIGHT KNEE RIGHT Diagnosis Active 2017-01-07 Memoria DJD KNEE DJD 10-12 13:22:00 l Active 00:00: Martinez 10/12/2016 00 [facility] Neck pain Neck Pain Problem Active Aby via 6- Medical 00:00: 00 Chronic Chronic Problem Active [facility] intractabl Intractabl 3-07 Me dical e migraine e Migraine 00:00: without without 00 aura Aura S83.281A S83.281A Diagnosis Active 2015-05-30 Memoria RIGHT KNEE RIGHT KNEE 05-27 06:38:00 l TORN TORN 00:00: [place] MENISCUS MENISCUS 00 Active 05/27/2015 [facility] Refractory Refractory Problem Active 2014-04 P [facility] migraine Migraine 06-01 Medica l without without 00:00: aura Aura 00 Dizziness Dizziness Problem Active 2014-04 Aby via and and 207 Medical giddiness Giddiness 00:00: 00 LEFT LEFT Diagnosis Active 2014-042015-02-28 Mem oria SHOULDER SHOULDER 0- 06:45:00 l ROTATOR ROTATOR 00:00: [place] CUFF TEAR CUFF TEAR 00 Active 02/19/2015 [facility] Crohn's Crohn's Disease Active Last [facility] disease disease 2-17 Assessmen Ludiana without without 00:00: t & Plan: Medic al complicati complicati 00 Formattin Center on on g of this note might be different from the original. Treated with Remicade for 5 years and stopped earlier this year. Will need to monitor closely for recurrent symptoms. She must also follow up with primary GI Dr. Stoddard. We will request records from his office. Spasmodic Spasmodic Problem Active Aby via torticolli Torticolli 7-14 Me dical s s 00:00: 00 Spasm Spasm Problem Active [facility] 4-15 Medical 00:00: 00 Partial Partial Problem Active 2012-04 Ev thickness Thickness 2-16 Orth ope rotator Rotator 00:00: dic cuff tear Cuff Tear 00 Spor ts Medicin e Viral Viral Problem Active 2012-04 Ev hepatitis Hepatitis 1-26 Orth ope C C 00:00: dic 00 Sports Medicin e Osteoarthr Osteoarthr Problem Active 2012-04 A zalea itis of itis of 1-25 Orthope knee Knee 00:00: dic 00 Sports Medicin e Injury of Injury of Problem Active 2012-04 Aza augustine tendon of Tendon of 1-25 Orth ope the the 00:00: dic rotator Rotator 00 Sports cuff of Cuff of Medicin shoulder Shoulder e Subacromia Subacromia Problem Active 2012-04 A zalea l bursitis l Bursitis 1-25 Or thope 00:00: dic 00 Sports Medicin e Impingemen Impingemen Problem Active 2012-04 A zalea t syndrome t Syndrome 1-25 Or thope of of 00:00: dic shoulder Shoulder 00 Sports region Region Medicin e Obesity Obesity Disease Active Overview: Meth whitley 6-[address] 00:00: g of this Hospita 00 note l might be different from the original. Formattin g of this note might be different from the original. ICD10 Diagnosis Term Manager Reading UtilityFo rmatting of this note might be different from the original. ICD10 Diagnosis Term Manager Reading Utility Diabetes Diabetes Disease Active Overview: Un ebony mellitus mellitus 6-18 ICD10 ity of type 2, type 2, 00:00: Diagnosis [place] uncontroll uncontroll 00 Term Me dical ed, ed, Manager Reading Branch without without Utility complicati complicati ons ons Rheumatoid Rheumatoid Disease Recurre Last [facility] arthritis arthritis nce 6 Assessmen L ukes with with 00:00: t & Plan: Medical negative negative [address] rheumatoid rheumatoid g of this factor factor note might be different from the original. No active rheumatoi d flare. She was previousl y treated with methotrex ate but it was stopped due to elevated liver tests. She is only on low dose imuran 50 BID right now. She follows with Dr. Yao (Rheumato logy). 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 Hospita l Osteoarthr Osteoarthr Disease Active M ethodi itis of itis of st spine spine Hospita without without l myelopathy myelopathy or or radiculopa radiculopa thy, thy, lumbar lumbar region region Anxiety Anxiety Disease Active Methodi and and st depression depression Ho spita l GERD GERD Disease Active Methodi (gastroeso (gastroeso st phageal phageal Hospita reflux reflux l disease) disease) Hypertensi Hypertens Problem Resolve 2017-01-15 Memoria ve misty d 01:52:57 l disorder, disorder, Herm amena systemic systemic arterial arterial (disorder) (disorder) Resolved Problem 01/15/2017 [facility] Neuropathy Neuropath Problem Resolve 2017-01-15 Memoria (disorder) y d 01:52:57 l (disorder) Jonathan n Resolved Problem 01/15/2017 [facility] Diverticul Diverticu Problem Active 2017-01-15 Memoria itis litis 01:52:57 l (disorder) (disorder) He rmann Active Problem 01/15/2017 [facility] Inflammato Inflammat Problem Active 2017-01-15 Memoria ry disease ory 01:52:57 l of liver disease of Herm amena (disorder) liver (disorder) Active Problem 01/15/2017 auto immune [facility] Motility, Motility, Problem Active 2017-01-15 Memoria function function 01:52:57 l (observabl (observabl He rmann e entity) e entity) Active Problem 01/15/2017 [facility] Rheumatoid Rheumatoi Problem Active 2017-01-15 Memoria arthritis d 01:52:57 l (disorder) arthritis Her mccurdy (disorder) Active Problem 01/15/2017 [facility] Osteoarthr Problem Active 2017-01-15 M emoria itis Osteoarthr 01:52:57 l (disorder) itis Jonathan n (disorder) Active Problem 01/15/2017 [facility] UNILATERAL UNILATERA Diagnosis Active 2017-01-17 Memoria PRIMARY L PRIMARY 22:05:00 l OSTEOARTHR OSTEOARTHR He rmann ITIS, ITIS, RIGHT RIGHT Active [facility] Anxiety Anxiety Problem Resolve 2017-01-15 M emoria (finding) (finding) d 01:52:57 l Resolved Martinez Problem 01/15/2017 [facility] Allergies, Adverse Reactions, Alerts Allergy Allergy Status Severity Reaction(s) Onset Inactive Treating Comm ents Source Name Type Date Date Clinician Ciproflo Propensi Active GI 2015-04 Nausea Method i xacin ty to Intolerance 0-20 st adverse 00:00: Hospita reaction 00 l s to drug Codeine Propensi Active Itching 2015-04 Chest Method i ty to 0-[address] adverse 00:00: Hospita reaction 00 l s to drug Sulfamet Propensi Active Palpitations Methodi hoxazole ty to 7-05 st -Trimeth adverse 00:00: Hospita oprim reaction 00 l s to drug Bactrim Allergy Active 2012-04 Ev to 1-25 Orthope substanc 00:00: dic e 00 Sports Medicin e Codeine Propensi Active Other - See Un ebony ty to comments 6-18 ity of adverse 00:00: [place] reaction 00 Medical s Branch Penicill Propensi Active Other - See U nivers ins ty to comments 6-18 ity of adverse 00:00: [place] reaction 00 Medical s Branch CODEINE DRUG Active Other-Cmnt Unive rs INGREDI 6-18 ity of 00:00: [place] 00 Medical Branch PENICILL Drug Active Other-Cmnt Univ ers INS Class 6-18 ity of 00:00: [place] 00 Medical Branch Morphine Propensi Active Itching Chest Metho di Sulfate ty to 5-[address] adverse 00:00: Hospita reaction 00 l s to drug Codeine Drug Active Other (See Chest [facility] Allergy Comments) 5-16 pain [facility] 00[facility] Medical [facility] Center Morphine Drug Active Itching [facility] Sulfate Allergy 5-16 [facility] 00:00: Medical 00 Center Sulfamet Drug Active Swelling lips [facility] hoxazole Allergy 5-16 [facility] -Trimeth 00:00: Medical oprim 00 Center Ciproflo Drug Active Other (See GI [facility] xacin Allergy Comments) 5-16 Bleeding Luke s 00:00: Medical 00 Center SULFAMET Allergy Active High Swelling [facility] t HOXAZOLE 5-16 [facility] -TRIMETH 00:00: Medical OPRIM 00 Center CIPROFLO Allergy Active High Other [facility] XACIN 5-16 [facility] 00:00: Medical 00 Center CODEINE Allergy Active High Other [facility] 5-16 [facility] 00:00: Medical 00 Center MORPHINE Allergy Active Med Itching [facility] SULFATE 5-16 [facility] 00:00: Medical 00 Center Bactrim Bactrim Active [facility] [place] codeine codeine Active Memoria sulfate sulfate l [place] NKFA NKFA Active [facility] [place] Family History Family Member Diagnosis Comments Start Date Stop Date Source Natural brother Other Yarsanism [facility] Natural father Dementia [facility] Natural mother COPD [facility] Natural mother Liver failure [facility] Natural mother Gout [facility] Natural mother Hypertension [facility] Other Breast cancer [facility] H [facility]spital Other Lung cancer [facility] Hos [facility]ital Other Stomach cancer Yarsanism [facility] Other Throat cancer [facility] Natural [facility] Maternal aunt Cancer [facility] Paternal aunt Cancer [facility] Social History Social Habit Start Date Stop Date Quantity Comments Source Sexual orientation 2020-09-03 Heterosexual Meth odist 20:37:58 (finding) Hospital Exposure to Not sure University of SARS-CoV-2 (event) [facility] History of Social 2023-02-02 2023-02-[address] function 00:00:00 00:00:00 Hospital Alcohol intake 2022-08-26 2022-08-26 Current non-drinker [facility]00 of [facility] Center (finding) Tobacco use and 2022-03-30 2022-03-30 Smokeless tobacco Me thodist exposure 00:00:00 00:00:00 non-user Hospital Alcohol Comment 2020-05-22 2020-05-22 1-2 year Yarsanism 00:00:00 00:00:00 Hospital Social History 2017-01-10 2017-01-10 [facility] Jerel vickers 17:39:08 17:39:08 Sex [birth year] EMILIA Calero 00:00:00 00:00:00 [facility] Center Smoking Status Start Date Stop Date Source Never smoked tobacco [facility]ism H [facility]spital Medications Ordered Filled Start Stop Current Ordering Indication Dosage Frequency Signature Comments Components Source Medication Medication Date Date Medication? Clinician (SIG) Name Name pantoprazol 2022-04 Yes 40mg QD TAKE 1 Meth whitley e 0-[address] (PROTONIX) 00:00: MOUTH Hospit a 40 MG EC 00 DAILY l tablet pantoprazol 2022-04 No 40mg QD Take 1 Met hodi e 0-24 10-26 tablet (40 st (Protonix) 00:00: 00:00 mg total) H ospita 40 MG EC 00 :00 by mouth l tablet daily for 30 days. azaTHIOprin 2022-04- Yes [id number] Take 2 Methodi e (IMURAN) 0-20 01-[address] 50 mg 00:00: 05:59 BID Hospita tablet 00 :00 l sodium 2022-04 Yes 1g Q.[id number] Take 1 Met hodi chloride 1 0-11 [id number] tablet (1 st gram tablet 12:44: 3D g total) Ho spita 02 by mouth 3 l (three) times a day. gabapentin 2022-04 Yes 600mg Q.[id number] Take 2 Methodi (NEURONTIN) 0-[id number] 300 mg 12:44: 3D (600 mg Hospita capsule 02 total) by l mouth 3 (three) times a day. metFORMIN 2022-04 Yes 1000mg Q.5D Take 1 Meth whitley (GLUCOPHAGE 0-[address] ) 1,000 mg 12:44: (1,000 mg Ho spita tablet 40 total) by l mouth 2 (two) times a day with meals. escitalopra 2022-04 Yes 20mg QD Take 1 Meth whitley m (LEXAPRO) 0-10 tablet (20 st 20 MG 12:44: mg total) Hospita tablet 40 by mouth l nightly. nortriptyli 2022-04 Yes 30mg QD Take 3 Meth whitley ne 0-[address] (PAMELOR) 12:44: (30 mg Hospit a 10 MG 40 total) by l capsule mouth nightly. traZODone 2022-04 Yes 150mg QD Take 1 Metho di (DESYREL) 0-[address] 150 MG 12:44: (150 mg Hospita tablet 40 total) by l mouth nightly. zolpidem 2022-04 Yes 10mg QD Take 1 Methodi (AMBIEN) 10 0-10 tablet (10 st mg tablet 12:44: mg total) Hos yoshi 40 by mouth l nightly. (per Prescripti on Drug Monitoring Program, last filled 01/07/23, quantity: 30, day supply: 30) levocetiriz 2022-04 Yes 5mg QD Take 1 Meth whitley ine (Xyzal) 0-10 tablet (5 st 5 MG tablet 12:44: mg total) H ospita 40 by mouth l every evening. losartan 2022-04 Yes 50mg Q.5D Take 1 Methodi (COZAAR) 50 0-10 tablet (50 st MG tablet 12:44: mg total) Hos yoshi 40 by mouth 2 l (two) times a day. cevimeline 2022-04 Yes 30mg Q.[id number] Take 1 [facility]i (EVOXAC) 30 0-[id number] mg capsule 12:44: 3D (30 mg Hospi ta 40 total) by l mouth 3 (three) times a day. cetirizine 2022-04 Yes 10mg QD Take 1 Metho di (ZyrTEC) 10 0-10 tablet (10 st MG tablet 12:44: mg total) Hos yoshi 40 by mouth l daily. SODIUM 2022-04 1g Q.[id number] Take 1 g Methodi CHLORIDE 0-06 10-06 [id number] by mouth [address] ORAL 09:27: 00:00 3D (three) Hospita 13 :00 times a l day. topiramate 2022-04 Yes 50mg QD Take 2 Metho di (TOPAMAX) 0-[address] 25 MG 00:00: (50 mg Hospita tablet 00 total) by l mouth nightly. amoxicillin Yes 500mg Q.5D Take 1 Met hodi -pot 9-[address] clavulanate 00:00: (500 mg Hos yoshi (AUGMENTIN) 00 total) by l 500-125 mg mouth 2 per tablet (two) times a day. Pt. Stated she has 2 more days to finish this medication indapamide 2022- No 1.25mg QD Take 1 Me thodi (LOZOL) 01-16- tablet st 1.25 MG 00:00: 00:00 (1.25 mg Hospi ta tablet 00 :00 total) by l mouth daily for 30 days. pantoprazol 2022- No 40mg QD Take 1 Met hodi e 01-15 tablet (40 st (Protonix) 00:00: 00:00 mg total) H ospita 40 MG EC 00 :00 by mouth l tablet daily for 30 days. amoxicillin 2022- No 500mg Q.5D Take 1 Me thodi -pot 01-[address] clavulanate 00:00: 00:00 (500 mg Ho spita (Augmentin) 00 :00 total) by l 500-125 mg mouth 2 per tablet (two) times a day for 7 days. losartan 2022- No 50mg Q.5D Take 50 mg Me thodi (COZAAR) 01-[address] 100 MG 00:16: 00:00 (two) Hospita tablet 56 :00 times a l day. Taking 50 mg am and pm zolpidem 2022- No 12.5mg Take 12.5 M ethodi (AMBIEN) 10 11-24 08-[address] mg tablet 14:16: 00:00 mouth. Hospi ta 13 :00 l vitamin B 2022- No Take by Meth whitley complex (B 11-[address] COMPLEX 14:16: 00:00 Hospita ORAL) 06 :00 l traZODone 2022- No 100mg QD Take 100 Me thodi (DESYREL) 8-02 08-[address] 100 MG 14:16: 00:00 mouth Hospita tablet 02 :00 nightly. l phentermine 2022-2022- No phentermin Methodi (ADIPEX-P) 8 08- e 37.[address] 37.5 mg 14:15: 00:00 tablet Hospita tablet 46 :00 TAKE 1 l TABLET BY MOUTH EVERY DAY furosemide 2022-0 Yes 20mg QD Take 1 Metho di (LASIX) 20 6-21 tablet (20 st mg tablet 00:00: mg total) Hos yoshi 00 by mouth l daily. cevimeline 2022-2022- No TAKE 1 Meth whitley (EVOXAC) 30 10-11- CAPSULE BY s t mg capsule 00:00: 00:00 MOUTH Hospi ta 00 :00 THREE l TIMES DAILY buPROPion 2022-0 Yes 300mg QD Take 2 Metho di XL 6-[address] (WELLBUTRIN 00:00: (300 mg Hos yoshi XL) 150 MG 00 total) by l 24 hr mouth tablet every morning. meclizine 2022-0 Yes 25mg Q.[id number] Take 1 Methodi (ANTIVERT) 09-30 [id number] tablet (25 st 25 mg 00:00: 3D mg total) Hospita tablet 00 by mouth 3 l (three) times a day as needed. levoFLOXaci 2022-2022- No Metho di n 09-30 09-22 st (LEVAQUIN) 00:00: 00:00 Hospit a 500 MG 00 :00 l tablet buPROPion 2022-0 2022- No Methodi XL 09-25- st (WELLBUTRIN 00:00: 00:00 Hospi ta XL) 300 MG 00 :00 l 24 hr tablet colestipoL 2022-0 2022- No 1g Q.5D Take 1 Meth [facility]ley (COLESTID) 09-21- tablet (1 st 1 gram 00:00: 00:00 g total) Hospit a tablet 00 :00 by mouth 2 l (two) times a day. cevimeline 2022-0 2022- No TAKE 1 Meth whitley (EVOXAC) 30 09-14- CAPSULE BY s t mg capsule 00:00: 00:00 MOUTH Hospi ta 00 :00 THREE l TIMES DAILY amLODIPine 2023-0 Yes 2.5mg QD Take 1 Meth whitley (NORVASC) 5-[address] 2.5 mg 00:00: (2.5 mg Hospita tablet 00 total) by l mouth daily. azaTHIOprin 2023-0 2023- No 100mg Q.5D Take 2 Me thodi e (IMURAN) 5-19 10-[address] 50 mg 00:00: 00:00 (100 mg Hospita tablet 00 :00 total) by l mouth 2 (two) times a day. escitalopra 2023-0 Yes 20mg QD Take [address] m oxalate 5-04 tablet (20 Luke s (LEXAPRO) 14:51: mg total) Med ical 20 MG 01 by mouth Center tablet in the morning. buPROPion 2023-0 Yes 300mg QD Take 1 [facility] (WELLBUTRIN 5-04 tablet [facility] XL) 300 MG 14:51: (300 mg Medi kasey 24 hr 01 total) by Center tablet mouth in the morning. traZODone 2023-0 Yes 100mg QD Take 1 [facility] (DESYREL) 5-04 tablet [facility] 100 MG 14:51: (100 mg Medical tablet 01 total) by Center mouth nightly. sodium 2023-0 Yes 1g Q.[id number] Take [address] chloride 1 5-04 [id number] tablet (1 [facility] gram tablet 14:51: 3D g total) Me dical 01 by mouth Center in the morning and 1 tablet (1 g total) at noon and 1 tablet (1 g total) in the evening. famotidine 2023-0 Yes 40mg QD Take 1 [facility] (PEPCID) 40 5-04 tablet (40 Radha kes MG tablet 14:51: mg total) Med ical 01 by mouth Center in the morning. furosemide 2023-0 Yes 20mg QD Take 1 [facility] (LASIX) 20 5-04 tablet (20 Jareth es MG tablet 14:51: mg total) Med ical 01 by mouth Center in the morning. amLODIPine 2023-0 Yes 2.5mg QD Take [address] (NORVASC) 5-04 tablet [facility] 2.5 MG 14:51: (2.5 mg Medical tablet 01 total) by Center mouth in the morning. ondansetron 2023-0 Yes 4mg Take [address] (ZOFRAN) 4 5-04 tablet (4 Luke s MG tablet 14:51: mg total) Med ical 01 by mouth 3 Center (three) times daily as needed for Nausea. cevimeline 2023-0 Yes 30mg Q.[id number] Take [address] (EVOXAC) 30 5-04 [id number] capsule [facility] mg capsule 14:51: 3D (30 mg Medic al 01 total) by Center mouth in the morning and 1 capsule (30 mg total) at noon and 1 capsule (30 mg total) in the evening. HYDROcodone 2023-0 2023- No 1{tbl} Q.5D Take [address] -acetaminop 5-04 05-03 tablet by Radha daly (NORCO 14:51: 00:00 mouth in Me dical 10-325) 01 :00 the Center 10-325 mg morning per tablet and 1 tablet before bedtime. Max Daily Amount: 2 tablets. zolpidem 2022-0 Yes 10mg QD Take [address] [facility] (AMBIEN) 10 5-03 tablet (10 Radha kes mg tablet 15:14: mg total) Med ical 25 by mouth Center nightly. losartan 2023-0 Yes 50mg Q.5D Take [address] [facility] (COZAAR) 25 5-03 tablets [facility] tablet 15:14: (50 mg Medica l 25 total) by Center mouth in the morning and 2 tablets (50 mg total) before bedtime. metFORMIN 3-0 Yes 1000mg Take [address] [facility] (GLUCOPHAGE 5-03 tablets [facility] ) 500 MG 15:14: (1,000 mg Medi kasey tablet 25 total) by Center mouth 2 (two) times daily with breakfast and dinner. nortriptyli 2023-0 Yes QD nightly. [facility] ne 5-03 [facility] (PAMELOR) 15:14: Medical 10 MG 25 Center capsule omeprazole 2023-0 Yes Q.5D 2 (two) [facility] (PRILOSEC) 5-03 times [facility] 40 MG 15:14: daily. Medical capsule 25 Center cycloSPORIN 2022-0 Yes 1[drp] Q.5D Place [address] E 5-03 drop into [facility] (RESTASIS) 15:14: both eyes Me dical 0.05 % 25 in the Center ophthalmic morning emulsion and 1 drop before bedtime. ranitidine 2022- No 75mg QD Take [address] [facility] (ZANTAC) 75 08-25-03 tablet (75 L [facility]kes MG tablet 13:58: 00:00 mg total) Me dical 30 :00 by mouth Center nightly Pt unsure of dosage. gabapentin 2022- No 100mg Q.[id number] Take [address] [facility] (NEURONTIN) 08-25- [id number] capsule [facility] 100 MG 13:58: 00:00 3D (100 mg Medical capsule 30 :00 total) by Center mouth in the morning and 1 capsule (100 mg total) at noon and 1 capsule (100 mg total) in the evening. pyridoxine, 2022- No 100mg QD Take [address] vitamin B6, 08-25 tablet [facility] (B-6) 100 13:58: 00:00 (100 mg Medi kasey MG tablet 30 :00 total) by Cente r mouth in the morning. mupirocin Yes 1{appli Q24H Apply 1 Me thodi (BACTROBAN) 4-25 cation} Applicatio st 2 % 00:00: n Hospita ointment 00 topically l daily as needed. indapamide 2022- No [facility] (LOZOL) 4-01-14 st 1.25 MG 00:00: 00:00 Hospita tablet 00 :00 l nystatin 2022- No [facility] (MYCOSTATIN 420 11-24 st ) 100,000 00:00: 00:00 Hospita unit/mL 00 :00 l suspension ondansetron Yes TAKE 1 [facility] (ZOFRAN) 4 4-[address] MG tablet 00:00: MOUTH Hospita 00 EVERY 8 l HOURS NEEDED FOR NAUSEA AND VOMITING *MAY IMPAIR ALERTNESS* * hyoscyamine Yes DISSOLVE 1 [facility] (LEVSIN) 4-[address] 0.125 mg SL 00:00: OR UNDER Ho spita tablet 00 TONGUE l EVERY 8 HOURS NEEDED FOR CRAMPING *MAY IMPAIR ALERTNESS* * metoclopram 2022- No TAKE 1 Met hodi dagmar 3-01-[address] (REGLAN) 10 00:00: 00:00 MOUTH 3 Ho spita MG tablet 00 :00 TIMES l DAILY BEFORE MEALS - ADVISE OF TARDIVE DYSKENISA, IRREVERSIB LE AT TIMES metoclopram 2022- No TAKE 1 Met hodi dagmar 2-07-[address] (REGLAN) 10 00:00: 00:00 MOUTH 3 Ho spita MG tablet 00 :00 TIMES l DAILY BEFORE MEALS - ADVISE OF TARDIVE DYSKENISA, IRREVERSIB LE AT TIMES metoclopram 2022- No TAKE 1 Met hodi dagmar 1-06-[address] (REGLAN) 10 00:00: 15:54 MOUTH 3 Ho spita MG tablet 00 :25 TIMES l DAILY BEFORE MEALS - ADVISE OF TARDIVE DYSKENISA, IRREVERSIB LE AT TIMES metoclopram 2021-04- No TAKE 1 Met hodi dagmar 06-[address] (REGLAN) 10 00:00: 00:00 MOUTH 3 Ho spita MG tablet 00 :00 TIMES l DAILY BEFORE MEALS - ADVISE OF TARDIVE DYSKENISA, IRREVERSIB LE AT TIMES levocetiriz 2021-04 No 1{tbl} QD Take 1 M ethodi ine 05-31 tablet by dihydrochlo 15:25: 00:00 mouth Hosp jan ride (XYZAL 18 :00 every l ORAL) morning. tizanidine 2021-04 No 1{tbl} Q.[id number] Take 1 [facility] HCl 05-31 [id number] tablet by (TIZANIDINE 15:13: 00:00 3D mouth 3 Ho spita ORAL) 57 :00 (three) l times a day. 4 mg buPROPion 2021-04- No bupropion Me thodi XL 05-[address] (WELLBUTRIN 15:10: 00:00 mg 24 hr H ospita XL) 150 MG 01 :00 tablet, l 24 hr extended tablet release cevimeline 2021-04 No [id number] 30mg Q.[id number] Take 1 [facility] (EVOXAC) 30 05-[id number] mg capsule 00:00: 00:00 3D (30 mg Hosp jan 00 :00 total) by l mouth 3 (three) times a day. metoclopram 2021-04- No TAKE 1 Met hodi dagmar 04-[address] (REGLAN) 10 00:00: 00:00 MOUTH 3 Ho spita MG tablet 00 :00 TIMES l DAILY BEFORE MEALS - ADVISE OF TARDIVE DYSKENISA, IRREVERSIB LE AT TIMES diethylprop 2021-04- No TAKE 1 Met hodi ion 25 mg 03-[address] tablet 00:00: 00:00 MOUTH Hospita 00 :00 THREE l TIMES DAILY 1 HOUR BEFORE MEALS cephalexin 2021- No [facility] (KEFLEX) 12-30 st 500 MG 00:00: 00:00 Hospita capsule 00 :00 l azithromyci 2021- No Metho di n 11-11 st (ZITHROMAX) 00:00: 00:00 Hospi ta 250 MG 00 :00 l tablet benzonatate 2021- No Metho di (TESSALON) 11-11 st 100 MG 00:00: 00:00 Hospita capsule 00 :00 l methylPREDN 2021- No Metho di ISolone 11-11 st (MEDROL 00:00: 00:00 Hospita DOSEPAK) 4 00 :00 l mg tablet Lagevrio, 2021- No Q.5D Take by Meth whitley EUA, 200 mg 11-[address] capsule 00:00: 00:00 (two) Hospita 00 :00 times a l day. lidocaine 2021- No [facility] (LIDODERM) 10-28 st 5 % 00:00: 00:00 Hospita 00 :00 l ondansetron 2022- No TAKE 1 Met h[facility] (ZOFRAN) 4 10-13 04-[address] MG tablet 00:00: 00:00 MOUTH Hospit a 00 :00 EVERY 8 l HOURS NEEDED FOR NAUSEA *MAY IMPAIR ALERTNESS* * ondansetron 2021- No TAKE 1 Met hodi (ZOFRAN) 4 10-[address] MG tablet 00:00: 00:00 MOUTH Hospit a 00 :00 EVERY 8 l HOURS NEEDED FOR NAUSEA/VOM IT doxepin 2021- No [facility] (SINEquan) 10-01 st 25 MG 00:00: 00:00 Hospita capsule 00 :00 l ciprofloxac 2021- No Metho di in (CIPRO) 09-12 st 500 MG 00:00: 00:00 Hospita tablet 00 :00 l famotidine 2022- No 40mg QD Take 1 [facility] (PEPCID) 40 06-27 tablet (40 s t MG tablet 00:00: 00:00 mg total) Ho spita 00 :00 by mouth l daily. gabapentin 2022- No 600mg Q.[id number] Take 2 [facility] (NEURONTIN) 06-[id number] 300 mg 00:00: 00:00 3D (600 mg Hospita capsule 00 :00 total) by l mouth 3 (three) times a day. azaTHIOprin 2022- No [id number] Take 2 [facility] e (IMURAN) 06-23- pills bid st 50 mg 00:00: 05:59 Hospita tablet 00 :00 l cevimeline 2021- No [id number] 30mg Q.[id number] Take 1 [facility] (EVOXAC) 30 06-01 11-[id number] mg capsule 00:00: 00:00 3D (30 mg Hosp jan 00 :00 total) by l mouth 3 (three) times a day. amLODIPine 2021- No [facility] i (NORVASC) 04-28 st 2.5 mg 00:00: 00:00 Hospita tablet 00 :00 l hyoscyamine 2020-04- No 125ug Q6H Take 1 Me thodi (LEVSIN) 011-[address] 0.125 mg 00:00: 00:00 (125 mcg Hosp jan tablet 00 :00 total) by l mouth every 6 (six) hours as needed for cramping. omeprazole 2020-0 2022- No 40mg Q.5D Take 1 [facility] (PriLOSEC) 12-27 10-[address] 40 MG 00:00: 00:00 (40 mg Hospita capsule 00 :00 total) by l mouth 2 (two) times a day. cloNIDine 2020-0 Yes [id number] .1mg Take 1 U nivers 0.1 mg 4-08 tablet by ity of tablet 00:00: mouth 3 (three) Medical times Branch daily. Take 0.1mg TID if BP > 150/90. hydroCHLORO 2020-0 Yes [id number] 25mg Take 1 [facility] thiazide 25 4-08 tablet by ity of mg tablet 00:00: mouth [place] 00 every Medical morning Branch and evening. acetaminoph 2020-0 Yes [id number] 650mg Take 1 [facility] en 650 mg 4-08 tablet by ity o f CR tablet 00:00: mouth [place] 00 every 8 Medical (eight) Branch hours as needed for Pain or Fever. Miscellaneo 2020-0 Yes [id number] I10 - U nivers [facility] 07-31 Dispense ity o f Supply Kit 00:00: blood [place] 00 pressure Medical cuff (any Branch brand), take BP at home BID cloNIDine 2020-0 Yes [id number] .1mg Take 1 Un ebony 0.1 mg 4-08 tablet by ity of tablet 00:00: mouth (three) Medical times Branch daily. Take 0.1mg TID if BP > 150/90. hydroCHLORO 2020-0 Yes [id number] 25mg Take 1 [facility] thiazide 25 4-08 tablet by ity of mg tablet 00:00: mouth [place] 00 every Medical morning Branch and evening. acetaminoph 2020-0 Yes [id number] 650mg Take 1 [facility] en 650 mg 4-08 tablet by ity o f CR tablet 00:00: mouth [place] 00 every 8 Medical (eight) Branch hours as needed for Pain or Fever. Miscellaneo 2020-0 Yes [id number] I10 - U nivers [facility] 07-31 Dispense ity o f Supply Kit 00:00: blood [place] 00 pressure Medical cuff (any Branch brand), take BP at home BID cloNIDine 2020-0 Yes [id number] .1mg Take 1 Un ebony 0.1 mg 4-08 tablet by ity of tablet 00:00: mouth 3 [place] (three) Medical times Branch daily. Take 0.1mg TID if BP > 150/90. hydroCHLORO 2020-0 Yes [id number] 25mg Take 1 [facility] thiazide 25 4-08 tablet by ity of mg tablet 00:00: mouth [place] 00 every Medical morning Branch and evening. acetaminoph 2020-0 Yes [id number] 650mg Take 1 [facility] en 650 mg 4-08 tablet by ity o f CR tablet 00:00: mouth [place] 00 every 8 Medical (eight) Branch hours as needed for Pain or Fever. Miscellaneo 2020-0 Yes [id number] I10 - U Plasmonix [facility] 07-31 Dispense ity o f Supply Kit 00:00: blood [place] 00 pressure Medical cuff (any Branch brand), take BP at home BID cloNIDine 2020-0 Yes [id number] .1mg Take 1 Un ebony 0.1 mg 4-08 tablet by ity of tablet 00:00: mouth (three) Medical times Branch daily. Take 0.1mg TID if BP > 150/90. hydroCHLORO 2020-0 Yes [id number] 25mg Take 1 [facility] thiazide 25 4-08 tablet by ity of mg tablet 00:00: mouth [place] 00 every Medical morning Branch and evening. acetaminoph 2020-0 Yes [id number] 650mg Take 1 [facility] en 650 mg 4-08 tablet by ity o f CR tablet 00:00: mouth [place] 00 every 8 Medical (eight) Branch hours as needed for Pain or Fever. Miscellaneo 2020-0 Yes [id number] I10 - U Plasmonix [facility] 07-31 Dispense ity o f Supply Kit 00:00: blood [place] 00 pressure Medical cuff (any Branch brand), take BP at home BID cloNIDine 2020-0 Yes [id number] .1mg Take 1 Un ebony 0.1 mg 4-08 tablet by ity of tablet 00:00: mouth 3 (three) Medical times Branch daily. Take 0.1mg TID if BP > 150/90. hydroCHLORO 2020-0 Yes [id number] 25mg Take 1 [facility] thiazide 25 4-08 tablet by ity of mg tablet 00:00: mouth [place] 00 every Medical morning Branch and evening. acetaminoph 2020-0 Yes [id number] 650mg Take 1 Univers en 650 mg 4-08 tablet by ity o f CR tablet 00:00: mouth [place] 00 every 8 Medical (eight) Branch hours as needed for Pain or Fever. Miscellaneo 2020-[id number] 07-31 Dispense ity o f Supply Kit 00:00: blood [place] 00 pressure Medical cuff (any Branch brand), take BP at home BID cloNIDine 2020-0 Yes [id number] .1mg Take 1 U nivers 0.1 mg 4-08 tablet by ity of tablet 00:00: mouth 3 [place] (three) Medical times Branch daily. Take 0.1mg TID if BP > 150/90. hydroCHLORO 2020-0 Yes [id number] 25mg Take 1 [facility] thiazide 25 4-08 tablet by ity of mg tablet 00:00: mouth [place] 00 every Medical morning Branch and evening. acetaminoph 2020-0 Yes [id number] 650mg Take 1 [facility] en 650 mg 4-08 tablet by ity o f CR tablet 00:00: mouth [place] 00 every 8 Medical (eight) Branch hours as needed for Pain or Fever. Miscellaneo 2020-[id number] 07-31 Dispense ity o f Supply Kit 00:00: blood [place] 00 pressure Medical cuff (any Branch brand), take BP at home BID cloNIDine 2020-0 Yes [id number] .1mg Take 1 U nivers 0.1 mg 4-08 tablet by ity of tablet 00:00: mouth 3 (three) Medical times Branch daily. Take 0.1mg TID if BP > 150/90. hydroCHLORO 2020-0 Yes [id number] 25mg Take 1 [facility] thiazide 25 4-08 tablet by ity of mg tablet 00:00: mouth [place] 00 every Medical morning Branch and evening. acetaminoph 2020-0 Yes [id number] 650mg Take 1 Univers en 650 mg 4-08 tablet by ity o f CR tablet 00:00: mouth [place] 00 every 8 Medical (eight) Branch hours as needed for Pain or Fever. Miscellaneo 2020-[id number] 07-31 Dispense ity o f Supply Kit 00:00: blood [place] 00 pressure Medical cuff (any Branch brand), take BP at home BID BOTOX 100 2019- Yes Every 3 Metho di unit recon 1-[address]n 00:00: headaches Hospita 00 l colestipol 2018-04- No as needed. [facility] (COLESTID) 11 12-06 st 1 gram 00:00: 00:00 Hospita tablet 00 :00 l azaTHIOprin 2017-04 Yes Autoimmune 50mg Q.5D Take [address] [facility] [facility] (IMURAN) 0-19 hepatitis tablet (50 [facility] 50 mg 00:00: (HCC) mg total) Medica l tablet 00 by mouth 2 Center (two) times daily. metoclopram 2017-04- No 10mg Q.25D Take [address] [facility] HCl 0- 05-03 tablet (10 [facility] (REGLAN) 10 00:00: 00:00 mg total) Medical MG tablet 00 :00 by mouth 4 Cent er (four) times daily. furosemide No 40mg QD [address] (LASIX) 40 01-06- (40 mg [facility] MG tablet 00:00: 00:00 total) in Me dical 00 :00 the Center morning. modafinil 2022- No 200mg QD [address] (PROVIGIL) 11-22 05-03 (200 mg [facility] 200 MG 00:00: 00:00 total) in Medic al tablet 00 :00 the Center morning. potassium No 20meq QD Take [address] [facility] [facility] chloride SA 11-17 05-03 tablet (20 L ukes (K-DUR,KLOR 00:00: 00:00 mEq total) Medical -CON) 20 00 :00 by mouth Center MEQ tablet in the morning. inFLIXimab Yes 600mg [facility] (REMICADE) 1-19 [facility] 600 mg in 13:30: Medical sodium 00 Center chloride 0.9% (NS) EXCEL 250 mL IVPB inFLIXimab 2016-[address] [facility] (REMICADE) 2-08 [facility] 600 mg in 11:30: Medical sodium 00 Center chloride 0.9% (NS) EXCEL 250 mL IVPB Acetaminoph Yes 1 tab, PO, Memoria en 325 MG / 9-20 Q4H, PRN l Hydrocodone 15:07: for pain, H ermann Bitartrate 00 X 14 day, 10 MG Oral # 84 tab, Tablet 0 [[place] Refill(s), ] called to pharmacy Cephalexin 2017- Yes 500 mg = 1 M emoria [...] PO, l oral tablet 15:07: Bedtime, 0 [place] 00 Refill(s) cetirizine Yes 5 mg = 1 Mem oria 5 mg oral 9-20 tab, PO, l tablet 15:07: Daily, 0 [place] 00 Refill(s) Dilaudid No 0.2 mg, Memori a 01-11 Route: l 17:48: IVP, Q15Min, Dosing Weight 84.091, kg, PRN Pain Score 7-10, Start date: 01/11/17 12:48:00 CDT, Duration: 30 day, Stop date: 02/10/17 12:47:00 CDT Furosemide No Notes: Memor ia 01-11 (Same as: l 14:00: Lasix) May cause GI upset. Give with food or milk. Omeprazole No 40 mg, Memor ia - Route: PO, l 14:00: Daily, Dosing Weight 84.091, kg, Start date: 01/11/17 9:00:00 CDT, Duration: 30 day, Stop date: 02/09/17 9:00:00 CDT Zyrtec No 5 mg, Memoria 01-11 Route: PO, l 14:00: Daily, Dosing [...] 02:00: Zyrtec) famotidine No Notes: Memor ia 01-11 (Same as: l 02:00: Pepcid) Protonix No [...] 01-11 (Same as: l Flush 01:02: BD Posiflush) Docusate No Notes: Memoria Sodium 100 9-18 (Same as: l MG Oral 22:00: Colace) [place] Capsule 00 (Do Not [Colace] Crush) Alprazolam No Notes: Memor ia 0.5 MG Oral 01-10 With food l Tablet 22:00: or milk [place] [Xanax] 00 (Same as: Xanax) Hyoscyamine No Notes: Sunday tressa 01-10 (Same as: l 22:00: Levsin) [place] 00 Take 30 min before meal Metformin No Notes: Memori a hydrochlori 01-10 (Same as: l de 500 MG 22:00: Glucophage [place] r[place] Oral Tablet 00 ) Take with meal Zantac No 150 mg, Memoria 01-10 Route: PO, l 22:00: BID, [place] 00 Dosing Weight 84.091, kg, Start date: 01/10/17 17:00:00 CDT, Duration: 30 day, Stop date: 02/09/17 9:00:00 CDT gabapentin No 100 mg, Sunday tressa 01-10 Route: PO, l 22:00: TID, Dosing Weight 84.091, kg, Start date: 01/10/17 17:00:00 CDT, Duration: 30 day, Stop date: 02/09/17 13:00:00 CDT Reglan No Notes: Memoria 01-10 (Same as: l 21:30: Reglan) Take 30 min before meals ceFAZolin No Notes: Memori a 01-10 Same as: l 21:00: Ancef glucagon No 1 mg, Memoria 01-10 Route: IM, l 19:49: Drug form: PDR/INJ, PRN, PRN Blood Glucose Results, Start [...] l Water IV 19:47: IVP, Start Her date: 01/10/17 14:47:00 CDT, Duration: 30 day, Stop date: 02/09/17 14:46:00 CDT, PRN Blood Glucose Results Humalog No Notes: Memoria 01-10 Roll in l 19:46: palms of [place] 00 hands gently; Do not shake `vigorousl [...] 01-10 Roll in l 19:44: palms of [place] 00 hands gently; Do not shake `vigorousl y. (Same as: Humalog ) "Single Patient Use Only " WASTE: F/P - Black; E - Municipal Trash Bin Stable for 28 days at room temperatur e. Expires in days from ____Date Zofran No Notes: Memoria 01-10 (Same as: l 19:24: Zofran) Melatonin No Notes: Memori a 01-10 (Same as: l 19:24: Melatonin) Guaifenesin No Notes: Sunday tressa 01-10 (Same as: l 19:23: Organidin NR) Adderall No 10 mg, Memoria 9-18 Route: PO, l 19:22: Drug form: [place] 00 TAB, BID, Dosing Weight 84.091, kg, PRN Agitation, Start date: 01/10/17 14:22:00 CDT, Duration: 30 day, Stop date: 02/09/17 14:21:00 CDT gabapentin No Notes: Memor ia 01-10 (Same as: l 19:00: Neurontin) [place] 00 Acetaminoph No Notes: Max Memoria en 01-10 acetaminop l 18:00: hen 4000 [place] 00 mg/day (4 gm/day). (Same as: Tylenol Extra Strength) Guaifenesin Yes 400 mg, Mem oria 01-10 PO, BID, l 17:15: PRN [place] 00 [...] 01-10 tab, PO, l tablet 17:15: Bedtime, [place] 00 PRN for insomnia, # 60 tab, 0 Refill(s) Adderall Yes PO, BID, 0 Mem oria 01-10 [...] Tablet 00 ) Morphine No Notes: Memoria 9-18 (Same l 17:03: as:MORPhin [place] 00 e Sulfate) Hydromorpho 2017-0 No 0.3 mg, Mem oria ne 01-10 0.3 mL, l 17:03: Route: [place] 00 IVP, Drug form: INJ, Q4H, Dosing Weight 84.091, kg, PRN Pain Score 7-10, Start date: 01/10/17 12:03:00 CDT, Duration: 30 day, Stop date: 02/09/17 12:02:00 CDT Ondansetron 2017-0 No Notes: Sunday tressa 01-10 (Same as: l 17:03: Zofran) [place] 00 MEDICATION WASTE Product Size: 4 mg Product Wasted: ___ mg Cefazolin 2017-0 No 1 gm, Memoria 01-10 Route: l 17:00: IVPB, Drug form: INJ, Q6H, Dosing Weight 84.091, kg, Start date: 01/10/17 12:00:00 CDT, Duration: 3 doses or times, Stop date: 01/11/17 0:00:00 CDT, ABX Indication : Surgical Prophylaxi s Zofran 2017-0 No 4 mg, Memoria 18 Route: l 16:16: IVP, Drug form: INJ, ONCE, Dosing Weight 84.091, kg, Start date: 01/10/17 11:16:00 CDT, Stop date: 01/10/17 11:16:00 CDT Morphine 2017-0 No 2 mg, Memoria 01-10 Route: l 16:09: IVP, ONCE, Dosing Weight 84.091, kg, Start date: 01/10/17 11:09:00 CDT, Stop date: 01/10/17 11:09:00 CDT Ondansetron 2017-0 No 4 mg, 5 Mem oria 0.8 MG/ML -18 mL, Route: l Oral 16:09: IV, ONCE, [place] Solution 00 Dosing [Zofran] Weight 84.091, kg, Start date: 01/10/17 11:09:00 CDT, Stop date: 01/10/17 11:09:00 CDT Morphine 2017-0 No 2 mg, Memoria 01-10 Route: l 15:55: IVP, ONCE, Dosing Weight 84.091, kg, Start date: 01/10/17 10:55:00 CDT, Stop date: 01/10/17 10:55:00 CDT ropivacaine No Notes: Sunday tressa 01-10 Same as: l 15:13: Naropin ondansetron No Route: IV, Memoria (ANES) 01-10 Drug form: l 15:09: INJ, ONCE, Stop date: 01/10/17 10:09:00 CDT dexamethaso No Route: IV, Memoria ne (ANES) 01-10 Drug form: l 13:42: INJ, ONCE, Stop date: 01/10/17 8:42:00 CDT rocuronium No Route: IV, M emoria (ANES) 01-10 Drug form: l 13:42: INJ, ONCE, Stop date: 01/10/17 8:42:00 CDT fentaNYL No Route: IV, Mem oria (ANES) 01-10 Drug form: l 13:42: INJ, ONCE, Stop date: 01/10/17 8:42:00 CDT propofol No Route: IV, Mem oria (ANES) 01-10 [...] Memor ia 01-10 Route: l 13:00: SUB-Q, [place] 00 Drug form: INJ, [id number], Dosing Weight 84.091, kg, Start date: 01/10/17 [...] (Same as: l 10:32: Neurontin) hyoscyamine Yes every [address] [facility] [address] (ANASPAZ,LE 01-10 (six) [facility] VSIN) 0.125 00:00: hours as Me dical mg tablet 00 needed. [place] levocetiriz Yes 5mg QD [address] [facility]e (XYZAL) 01-10 (5 mg [facility] 5 MG tablet 00:00: total) Medi kasey 00 every Center evening. melatonin No 10 mg = [address] 10 mg Cap 01-10 05-03 PO, [facility] 00:00: 00:00 Bedtime, Medical 00 :00 PRN for Center insomnia, # 60 tab, 0 Refill(s) diphenhydrA Yes 25mg [facility] MINE 11-19 [facility] (BENADRYL) 11:30: Medical capsule 25 00 Center mg acetaminoph Yes 650mg [facility] en 11-19 [facility] (TYLENOL) 11:30: Medical tablet 650 00 Center mg HYDROcodone Yes 1{tbl} Q8H Take 1 Me thodi -acetaminop 4-[address] hen (NORCO) 00:00: mouth Hospi ta 10-325 mg 00 every 8 l per tablet (eight) hours as needed. (per Prescripti on Drug Monitoring Program, last filled 01/04/23, quantity: 70, day supply: 23) ALPRAZolam Yes 1mg Q.[id number] Take 1 [facility] (XANAX) 1 9-13 [id number] tablet (1 st MG tablet 00:00: 3D mg total) Hos yoshi 00 by mouth 3 l (three) times a day. (per Prescripti on Drug Monitoring Program, last filled 01/25/23, quantity: 90, day supply: 30) ALPRAZolam Yes .5mg Q.[id number] Take [address] (XANAX) 0.5 9-13 [id number] tablet [facility] MG tablet 00:00: 3D (0.5 mg Medic al 00 total) by Center mouth in the morning and 1 tablet (0.5 mg total) at noon and 1 tablet (0.5 mg total) in the evening. sodium Yes [facility] chloride 6-24 [facility] 0.9% (NS) 13:30: Medical infusion 00 Center sodium Yes [facility] chloride 5-27 [facility] 0.9% (NS) 13:30: Medical infusion 00 Center Kytril Yes Notes: Memoria 2-05 Same as: l 16:48: Kytril Non Formulary MEDICATION WASTE Product Size: 1 mg Product Wasted: ___ mg Promethazin No 12.5 mg, Me moria e 05 Route: IM, l 16:48: ONCE, Dosing Weight 86.364, kg, Start date: 05/30/15 10:48:00, Stop date: 05/30/15 10:48:00 Ondansetron No Notes: Sunday tressa 2-05 (Same as: l 12:47: Zofran) MEDICATION WASTE Product Size: 4 mg Product Wasted: ___ mg Calcium No 1,000 mL, Memor ia Chloride 2-05 Rate: 125 l 0.0014 12:47: ml/hr, [place] MEQ/ML / 00 Infuse Potassium over: 8 Chloride hr, Route: 0.004 IV, Dosing MEQ/ML / Weight Sodium 86.364 kg, Chloride Total 0.103 Volume: MEQ/ML / 1,000, Sodium Start Lactate date: 0.028 05/30/16 MEQ/ML 6:47:00, Injectable Duration: Solution 30 day, Stop date: 06/29/15 6:46:00 Acetaminoph No Notes: Sunday tressa en 2-05 Infuse l 12:47: over 15 [place] 00 minutes Do not exceed 4gm/day of acetaminop hen MEDICATION WASTE Product Size: 1000 mg Product Wasted: ___ mg Fentanyl No Notes: Memoria 2-05 (Same as: l 12:47: Sublimaze) [place] Preservati ve free. Morphine No Notes: Memoria 2-05 (Same l 12:47: as:MORPhin [place] 00 e Sulfate) Flumazenil No Notes: Memor ia 2-05 (Same as: l 12:47: Romazicon) [place] Naloxone No Notes: Memoria 2-05 Same as l 12:47: Narcan [place] 00 Calcium No 1,000 mL, Memor ia Chloride 2-05 Rate: 25 l 0.0014 12:46: ml/hr, [place] MEQ/ML / 00 Infuse Potassium over: 40 Chloride hr, Route: 0.004 IV, Dosing MEQ/ML / Weight Sodium 86.364 kg, Chloride Total 0.103 Volume: MEQ/ML / 1,000, Sodium Start Lactate date: 0.028 05/30/16 MEQ/ML 6:46:00, Injectable Duration: Solution 30 day, Stop date: 06/29/15 6:45:00 Insulin, 2014-04 No Notes: Renee Aspart, 04-30 Roll in l Human 17:44: [...] 04-30 Rate: 125 l 0.0014 17:44: ml/hr, MEQ/ML / 00 Infuse Potassium over: 8 [...] 17:44: Romazicon) Naloxone 2014-04 No Notes: Memoria - (Same as: l 17:44: Narcan) Imuran 2014-04 Yes 100 mg, Memoria 1-04 PO, Daily l 22:56: Provigil 2014-04 Yes 200 mg, Memori a 1-04 PO, QAM l 22:55: Zantac 2014-04 Yes 300 mg, Memoria 1-04 PO, Daily l 22:54: Omeprazole 2014-04 Yes 40 mg, PO, M emoria 1-04 Daily l 22:54: [place] 00 Losartan 2014-04 Yes 25 mg, PO, Mem [...] mg, Memoria 1-04 PO, Q12H l 22:50: sodium Yes [facility] chloride 9-25 [facility] 0.9% (NS) 14:00: Medical infusion 00 Center inFLIXimab 2012-04 Yes Rheumatoid [address]mg [facility] (REMICADE) 2-05 arthritis Luke s 600 mg in 11:00: Medical sodium 00 Center chloride 0.9% (NS) 250 mL IVPB CYANOCOBALA 2012-04 Yes Take by Uni vers MIN, 1 mouth. ity of VITAMIN 21:12: [place] B-12, 09 Medical (VITAMIN Branch B-12 ORAL) VITAMIN B 2012-04 Yes Take by Unive rs COMPLEX - mouth. ity of (VITAMIN 21:12: [place] B-100 09 Medical COMPLEX Branch ORAL) Chromium 2012-04 Yes Take by Univer s (CHROMIMIN) 05-15 mouth. ity of 1,000 mcg 21:12: [place] Tab 09 Medical Branch vitamin B-6 2012-04 Yes 100mg Take 100 U nivers (VITAMIN 1-21 mg by ity of B-6) 100 mg 21:12: mouth [place] tablet 09 daily. Medical Branch foLIC acid 2012-04 Yes 1mg Take 1 mg Un [place] (FOLATE) 1 -21 by mouth ity o f mg tablet 21:12: daily. Medical Branch CYANOCOBALA 2012-04 Yes Take by Uni vers MIN, -21 mouth. ity of VITAMIN 21:12: Medical (VITAMIN Branch B-12 ORAL) VITAMIN B 2012-04 Yes Take by Unive rs COMPLEX 1-21 mouth. ity of (VITAMIN 21:12: B-100 Medical COMPLEX Branch ORAL) Chromium 2012-04 Yes Take by Univer s (CHROMIMIN) -21 mouth. ity of 1,000 mcg 21:12: [facility] Branch vitamin B-6 2012-04 Yes 100mg Take 100 U nivers (VITAMIN 1-21 mg by ity of B-6) 100 mg 21:12: mouth [place] tablet 09 daily. Medical Branch foLIC acid 2012-04 Yes 1mg Take 1 mg Un [place] (FOLATE) 1 21 by mouth ity o f mg tablet 21:12: daily. Medical Branch CYANOCOBALA 2012-04 Yes Take by Uni vers MIN, -21 mouth. ity of VITAMIN 21:12: Medical (VITAMIN Branch B-12 ORAL) VITAMIN B 2012-04 Yes Take by Unive rs COMPLEX -21 mouth. ity of (VITAMIN 21:12: -100 Medical COMPLEX Branch ORAL) Chromium 2012-04 Yes Take by Univer s (CHROMIMIN) -21 mouth. ity of 1,000 mcg 21:12: [facility] [facility] vitamin B-6 2012-04 Yes 100mg Take 100 U nivers (VITAMIN 1-21 mg by ity of B-6) 100 mg 21:12: mouth [place] tablet 09 daily. Medical Branch foLIC acid 2012-04 Yes 1mg Take 1 mg [facility] (FOLATE) 1 -21 by mouth ity o f mg tablet 21:12: daily. [facility] CYANOCOBALA 2012-04 Yes Take by Uni vers MIN, -21 mouth. ity of VITAMIN 21:12: Medical (VITAMIN Branch B-12 ORAL) VITAMIN B 2012-04 Yes Take by Unive rs COMPLEX -21 mouth. ity of (VITAMIN 21:12: Medical COMPLEX Branch ORAL) Chromium 2012-04 Yes Take by Univer s (CHROMIMIN) - mouth. ity of 1,000 mcg 21:12: [address] Branch vitamin B-6 2012-04 Yes 100mg Take 100 U nivers (VITAMIN 1-21 mg by ity of B-6) 100 mg 21:12: mouth [place] tablet 09 daily. Medical Branch foLIC acid 2012-04 Yes 1mg Take 1 mg [facility] [place] (FOLATE) 1 21 by mouth ity o f mg tablet 21:12: daily. [address] CYANOCOBALA 2012-04 Yes Take by Uni vers MIN, 05-15 mouth. ity of VITAMIN 21:12: [place] Medical (VITAMIN Branch B-12 ORAL) VITAMIN B 2012-04 Yes Take by Unive rs COMPLEX 05-15 mouth. ity of (VITAMIN 21:12: [place] Medical COMPLEX Branch ORAL) Chromium 2012-04 Yes Take by Univer s (CHROMIMIN) 05-15 mouth. ity of 1,000 mcg 21:12: [address] Branch vitamin B-6 2012-04 Yes 100mg Take 100 U nivers (VITAMIN 1-21 mg by ity of B-6) 100 mg 21:12: mouth [place] tablet 09 daily. Medical Branch foLIC acid 2012-04 Yes 1mg Take 1 mg [facility] [place] (FOLATE) 21 by mouth ity o f mg tablet 21:12: daily. [address] CYANOCOBALA 2012-04 Yes Take by Uni vers MIN, - mouth. ity of VITAMIN 21:12: [place] Medical (VITAMIN Branch B-12 ORAL) VITAMIN B 2012-04 Yes Take by Unive rs COMPLEX 05-15 mouth. ity of (VITAMIN 21:12: [place] Medical COMPLEX Branch ORAL) Chromium 2012-04 Yes Take by Univer s (CHROMIMIN) 1-21 mouth. ity of 1,000 mcg 21:12: [address] Branch vitamin B-6 2012-04 Yes 100mg Take 100 U nivers (VITAMIN 1-21 mg by ity of B-6) 100 mg 21:12: mouth [place] tablet 09 daily. Medical Branch foLIC acid 2012-04 Yes 1mg Take 1 mg [facility] [place] (FOLATE) 1 1-21 by mouth ity o f mg tablet 21:12: daily. [address] Branch CYANOCOBALA 2012-04 Yes Take by Uni vers MIN, 1-21 mouth. ity of VITAMIN 21:12: [place] B-12, 09 Medical (VITAMIN Branch B-12 ORAL) VITAMIN B 2012-04 Yes Take by Unive rs COMPLEX 1-21 mouth. ity of (VITAMIN 21:12: [place] B-100 09 Medical COMPLEX Branch ORAL) Chromium 2012-04 Yes Take by Univer s (CHROMIMIN) -21 mouth. ity of 1,000 mcg 21:12: [place] Tab 09 [facility] vitamin B-6 2012-04 Yes 100mg Take 100 U nivers (VITAMIN 1-21 mg by ity of B-6) 100 mg 21:12: mouth [place] tablet 09 daily. [facility] foLIC acid 2012-04 Yes 1mg Take 1 mg [facility] [place] (FOLATE) 1 -21 by mouth ity o f mg tablet 21:12: daily. [address] Branch furosemide 2012-04 Yes 20mg Take 20 mg U nivers (LASIX) 20 -21 by mouth ity o f mg tablet 21:08: daily. [address] Branch HYOSCYAMINE 2012-04 Yes Take by Uni vers SULFATE -21 mouth. ity of (LEVSINEX 21:08: [place] ORAL) [address] [place] [address] Branch escitalopra 2012-04 Yes 20mg Take 20 mg Univers m (LEXAPRO) -21 by mouth ity of 20 mg 21:08: daily. [facility] 05 [facility] ARIPIPRAZOL 2012-04 Yes Take by Uni vers E (ABILIFY -21 mouth. ity of ORAL) 21:08: [address] Branch zolpidem 2012-04 Yes 12.5mg Take 12.5 [facility] [place] (AMBIEN CR) 1-21 mg by ity of 12.5 mg CR 21:08: mouth at [place] [facility] tablet 05 bedtime as Medical needed. Branch ALPRAZolam 2012-04 Yes .5mg Take 0.5 Uni vers (XANAX) 0.5 1-21 mg by ity of mg tablet 21:08: mouth [address] [place] [id number] (three) Medical times Branch daily. PHENOBARB/H 2012-04 Yes Take by Uni vers YOSCY/ATROP 1-21 mouth. ity of INE/SCOP 21:08: [place] ( Medical ORAL) [place] SUCRALFATE 2012-04 Yes Take by [facility] ers (CARAFATE - mouth. ity of ORAL) 21:08: [address] OMEPRAZOLE 2012-04 Yes Take by [facility] ers ORAL 1-21 mouth. ity of 21:08: [address] azaTHIOprin 2012-04 Yes 50mg Take 50 mg Univers e (IMURAN) 21 by mouth ity o f 50 mg 21:08: daily. [place] tablet [address] [place] [address] INFLIXIMAB 2012-04 Yes Inject Unive rs (REMICADE 05-15 intravenou ity of IV) 21:08: sly. [address] POTASSIUM 2012-04 Yes Take by [facility] CHLORIDE 05-15 mouth. ity of ORAL 21:08: [address] darifenacin 2012-04 Yes 15mg Take 15 mg Univers (ENABLEX) 05-15 by mouth ity of 15 mg 24 hr 21:08: [place] [address] [place] [address] furosemide 2012-04 Yes 20mg Take 20 mg U nivers (LASIX) 20 21 by mouth ity o f mg tablet 21:08: daily. [address] HYOSCYAMINE 2012-04 Yes Take by Uni vers SULFATE -21 mouth. ity of (LEVSINEX 21:08: [facility]) [address] [place] [address] escitalopra 2012-04 Yes 20mg Take 20 mg Univers m (LEXAPRO) 05-15 by mouth ity of 20 mg 21:08: daily. [place] tablet [address] [place] [address] ARIPIPRAZOL 2012-04 Yes Take by Uni vers E (ABILIFY -21 mouth. ity of ORAL) 21:08: [address] zolpidem 2012-04 Yes 12.5mg Take 12.5 [facility] [place] (AMBIEN CR) 1-21 mg by ity of 12.5 mg CR 21:08: mouth at [facility] as tablet 05 bedtime as Medical needed. Branch ALPRAZolam 2012-04 Yes .5mg Take 0.5 Uni vers (XANAX) 0.5 1-21 mg by ity of mg tablet 21:08: mouth [address] [place] [address] (three) Medical times Branch daily. PHENOBARB/H 2012-04 Yes Take by Uni vers YOSCY/ATROP 1-21 mouth. ity of INE/SCOP 21:08: [place] ( Medical ORAL) Branch SUCRALFATE 2012-04 Yes Take by Univ ers (CARAFATE - mouth. ity of ORAL) 21:08: [address] OMEPRAZOLE 2012-04 Yes Take by [facility] ers ORAL 1-21 mouth. ity of 21:08: [address] azaTHIOprin 2012-04 Yes 50mg Take 50 mg Univers e (IMURAN) 05-15 by mouth ity o f 50 mg 21:08: daily. [place] tablet [address] [place] [address] INFLIXIMAB 2012-04 Yes Inject Unive rs (REMICADE - intravenou ity of IV) 21:08: sly. [address] POTASSIUM 2012-04 Yes Take by Unive rs CHLORIDE - mouth. ity of ORAL 21:08: [address] darifenacin 2012-04 Yes 15mg Take 15 mg Univers (ENABLEX) 05-15 by mouth ity of 15 mg 24 hr 21:08: [place] [address] [place] [address] furosemide 2012-04 Yes 20mg Take 20 mg U nivers (LASIX) 20 -21 by mouth ity o f mg tablet 21:08: daily. [address] HYOSCYAMINE 2012-04 Yes Take by Uni vers SULFATE -21 mouth. ity of (LEVSINEX 21:08: [place] ORAL) [address] [place] [address] Branch escitalopra 2012-04 Yes 20mg Take 20 mg Univers m (LEXAPRO) 05-15 by mouth ity of 20 mg 21:08: daily. [place] tablet [address] [place] [address] ARIPIPRAZOL 2012-04 Yes Take by Uni vers E (ABILIFY -21 mouth. ity of ORAL) 21:08: [address] zolpidem 2012-04 Yes 12.5mg Take 12.5 [facility] [place] (AMBIEN CR) 1-21 mg by ity of 12.5 mg CR 21:08: mouth at [place] tablet 05 bedtime as Medical needed. Branch ALPRAZolam 2012-04 Yes .5mg Take 0.5 Uni vers (XANAX) 0.5 1-21 mg by ity of mg tablet 21:08: mouth [address] [place] [address] (three) Medical times Branch daily. PHENOBARB/H 2012-04 Yes Take by Uni vers YOSCY/ATROP -21 mouth. ity of INE/SCOP 21:08: [place] ( Medical ORAL) [place] SUCRALFATE 2012-04 Yes Take by Univ ers (CARAFATE - mouth. ity of ORAL) 21:08: [address] OMEPRAZOLE 2012-04 Yes Take by [facility] ers ORAL - mouth. ity of 21:08: [address] azaTHIOprin 2012-04 Yes 50mg Take 50 mg Univers e (IMURAN) 05-15 by mouth ity o f 50 mg 21:08: daily. [address] INFLIXIMAB 2012-04 Yes Inject Unive rs (REMICADE 05-15 intravenou ity of IV) 21:08: sly. [address] POTASSIUM 2012-04 Yes Take by [facility] CHLORIDE 05-15 mouth. ity of ORAL 21:08: [address] darifenacin 2012-04 Yes 15mg Take 15 mg Univers (ENABLEX) 05-15 by mouth ity of 15 mg 24 hr 21:08: [place] [address] [place] [address] furosemide 2012-04 Yes 20mg Take 20 mg U nivers (LASIX) 20 21 by mouth ity o f mg tablet 21:08: daily. [address] HYOSCYAMINE 2012-04 Yes Take by Uni vers SULFATE - mouth. ity of (LEVSINEX 21:08: [place] ORAL) [address] [place] [address] escitalopra 2012-04 Yes 20mg Take 20 mg Univers m (LEXAPRO) 05-15 by mouth ity of 20 mg 21:08: daily. [place] tablet [address] [place] [address] ARIPIPRAZOL 2012-04 Yes Take by Uni vers E (ABILIFY -21 mouth. ity of ORAL) 21:08: [address] zolpidem 2012-04 Yes 12.5mg Take 12.5 [facility] [place] (AMBIEN CR) 1-21 mg by ity of 12.5 mg CR 21:08: mouth at [place] tablet 05 bedtime as Medical needed. Branch ALPRAZolam 2012-04 Yes .5mg Take 0.5 Uni vers (XANAX) 0.5 1-21 mg by ity of mg tablet 21:08: mouth [address] [place] [address] (three) Medical times Branch daily. PHENOBARB/H 2012-04 Yes Take by Uni vers YOSCY/ATROP -21 mouth. ity of INE/SCOP 21:08: [place] ( Medical ORAL) [place] SUCRALFATE 2012-04 Yes Take by [facility] ers (CARAFATE - mouth. ity of ORAL) 21:08: [address] OMEPRAZOLE 2012-04 Yes Take by [facility] ers ORAL -21 mouth. ity of 21:08: [address] azaTHIOprin 2012-04 Yes 50mg Take 50 mg Univers e (IMURAN) 05-15 by mouth ity o f 50 mg 21:08: daily. [address] INFLIXIMAB 2012-04 Yes Inject Unive rs (REMICADE - intravenou ity of IV) 21:08: sly. [address] POTASSIUM 2012-04 Yes Take by [facility] CHLORIDE - mouth. ity of ORAL 21:08: [address] darifenacin 2012-04 Yes 15mg Take 15 mg Univers (ENABLEX) 05-15 by mouth ity of 15 mg 24 hr 21:08: [place] [address] [place] [address] furosemide 2012-04 Yes 20mg Take 20 mg U nivers (LASIX) 20 05-15 by mouth ity o f mg tablet 21:08: daily. [address] HYOSCYAMINE 2012-04 Yes Take by Uni vers SULFATE -21 mouth. ity of (LEVSINEX 21:08: [place] ORAL) [address] [place] [address] escitalopra 2012-04 Yes 20mg Take 20 mg Univers m (LEXAPRO) 05-15 by mouth ity of 20 mg 21:08: daily. [place] tablet [address] [place] [address] ARIPIPRAZOL 2012-04 Yes Take by Uni vers E (ABILIFY -21 mouth. ity of ORAL) 21:08: [address] zolpidem 2012-04 Yes 12.5mg Take 12.5 [facility] [place] (AMBIEN CR) 1-21 mg by ity of 12.5 mg CR 21:08: mouth at [place] tablet 05 bedtime as Medical needed. Branch ALPRAZolam 2012-04 Yes .5mg Take 0.5 Uni vers (XANAX) 0.5 1-21 mg by ity of mg tablet 21:08: mouth [address] [place] [address] (three) Medical times Branch daily. PHENOBARB/H 2012-04 Yes Take by Uni vers YOSCY/ATROP 1-21 mouth. ity of INE/SCOP 21:08: [place] ( Medical ORAL) [place] SUCRALFATE 2012-04 Yes Take by Univ ers (CARAFATE 1-21 mouth. ity of ORAL) 21:08: [address] OMEPRAZOLE 2012-04 Yes Take by Univ ers ORAL 1-21 mouth. ity of 21:08: [address] azaTHIOprin 2012-04 Yes 50mg Take 50 mg Univers e (IMURAN) -21 by mouth ity o f 50 mg 21:08: daily. [place] tablet [address] [place] [address] INFLIXIMAB 2012-04 Yes Inject Unive rs (REMICADE - intravenou ity of IV) 21:08: sly. [address] POTASSIUM 2012-04 Yes Take by Unive rs CHLORIDE 1-21 mouth. ity of ORAL 21:08: [address] darifenacin 2012-04 Yes 15mg Take 15 mg Univers (ENABLEX) -21 by mouth ity of 15 mg 24 hr 21:08: [place] [address] [place] [address] furosemide 2012-04 Yes 20mg Take 20 mg U nivers (LASIX) 20 -21 by mouth ity o f mg tablet 21:08: daily. [address] HYOSCYAMINE 2012-04 Yes Take by Uni vers SULFATE 1-21 mouth. ity of (LEVSINEX 21:08: [place] ORAL) [address] [place] [address] escitalopra 2012-04 Yes 20mg Take 20 mg Univers m (LEXAPRO) -21 by mouth ity of 20 mg 21:08: daily. [place] tablet [address] [place] [address] ARIPIPRAZOL 2012-04 Yes Take by Uni vers E (ABILIFY 1-21 mouth. ity of ORAL) 21:08: [address] zolpidem 2012-04 Yes 12.5mg Take 12.5 [facility] [place] (AMBIEN CR) 1-21 mg by ity of 12.5 mg CR 21:08: mouth at [facility] as tablet 05 bedtime as Medical needed. Branch ALPRAZolam 2012-04 Yes .5mg Take 0.5 Uni vers (XANAX) 0.5 1-21 mg by ity of mg tablet 21:08: mouth [address] [place] [address] (three) Medical times Branch daily. PHENOBARB/H 2012-04 Yes Take by Uni vers YOSCY/ATROP 1-21 mouth. ity of INE/SCOP 21:08: [place] ( Medical ORAL) [place] SUCRALFATE 2012-04 Yes Take by [facility] ers (CARAFATE 1-21 mouth. ity of ORAL) 21:08: [address] OMEPRAZOLE 2012-04 Yes Take by [facility] ers ORAL 1-21 mouth. ity of 21:08: [address] azaTHIOprin 2012-04 Yes 50mg Take 50 mg Univers e (IMURAN) -21 by mouth ity o f 50 mg 21:08: daily. [address] INFLIXIMAB 2012-04 Yes Inject Unive rs (REMICADE - intravenou ity of IV) 21:08: sly. [address] POTASSIUM 2012-04 Yes Take by [facility] rs CHLORIDE -21 mouth. ity of ORAL 21:08: [address] darifenacin 2012-04 Yes 15mg Take 15 mg Univers (ENABLEX) -21 by mouth ity of 15 mg 24 hr 21:08: [place] [address] [place] [address] furosemide 2012-04 Yes 20mg Take 20 mg U nivers (LASIX) 20 -21 by mouth ity o f mg tablet 21:08: daily. [address] HYOSCYAMINE 2012-04 Yes Take by Uni vers SULFATE 1-21 mouth. ity of (LEVSINEX 21:08: [facility]) [address] [place] [address] escitalopra 2012-04 Yes 20mg Take 20 mg Univers m (LEXAPRO) 21 by mouth ity of 20 mg 21:08: daily. [address] ARIPIPRAZOL 2012-04 Yes Take by Uni vers E (ABILIFY 1-21 mouth. ity of ORAL) 21:08: [address] zolpidem 2012-04 Yes 12.5mg Take 12.5 [facility] [place] (AMBIEN CR) 1-21 mg by ity of 12.5 mg CR 21:08: mouth at [place] tablet 05 bedtime as Medical needed. Branch ALPRAZolam 2012-04 Yes .5mg Take 0.5 Uni vers (XANAX) 0.5 1-21 mg by ity of mg tablet 21:08: mouth [address] [place] [address] (three) Medical times Branch daily. PHENOBARB/H 2012-04 Yes Take by Uni vers YOSCY/ATROP 1-21 mouth. ity of INE/SCOP 21:08: [place] ( Medical ORAL) [place] SUCRALFATE 2012-04 Yes Take by [facility] ers (CARAFATE 1-21 mouth. ity of ORAL) 21:08: [address] OMEPRAZOLE 2012-04 Yes Take by [facility] ers ORAL 1-21 mouth. ity of 21:08: [address] azaTHIOprin 2012-04 Yes 50mg Take 50 mg Univers e (IMURAN) -21 by mouth ity o f 50 mg 21:08: daily. [address] INFLIXIMAB 2012-04 Yes Inject [facility] rs (REMICADE -21 intravenou ity of IV) 21:08: sly. [address] POTASSIUM 2012-04 Yes Take by [facility] rs CHLORIDE -21 mouth. ity of ORAL 21:08: [address] darifenacin 2012-04 Yes 15mg Take 15 mg Univers (ENABLEX) 1-21 by mouth ity of 15 mg 24 hr 21:08: [place] [address] [place] [address] ergocalcife 2012-04 Yes [id number] Take 1 Cap Univers rol, 1-21 by mouth ity of vitamin d2, 00:00: weekly. [place] [facility] (CALCIFEROL Medical ) 50,000 Branch unit capsule ergocalcife 2012-04 Yes [id number] Take 1 Cap Univers rol, 1-21 by mouth ity of vitamin d2, 00:00: weekly. [place] ([place]IF[place]OL Medical ) 50,000 Branch unit capsule ergocalcife 2012-04 Yes [id number] Take 1 Cap Univers rol, 1-21 by mouth ity of vitamin d2, 00:00: weekly. [place] [facility] ([place] Medical ) 50,000 Branch unit capsule ergocalcife 2012-04 Yes [id number] Take 1 Cap Univers rol, 1-21 by mouth ity of vitamin d2, 00:00: weekly. [place] [facility] ([place] Medical ) 50,000 Branch unit capsule ergocalcife 2012-04 Yes [id number] Take 1 Cap Univers rol, 1-21 by mouth ity of vitamin d2, 00:00: weekly. [place] [facility] ([place] Medical ) 50,000 Branch unit capsule ergocalcife 2012-04 Yes [id number] Take 1 Cap Univers rol, 1-21 by mouth ity of vitamin d2, 00:00: weekly. [place] [facility] ([place] Medical ) 50,000 Branch unit capsule ergocalcife 2012-04 Yes [id number] Take 1 Cap Univers rol, 1-21 by mouth ity of vitamin d2, 00:00: weekly. [place] [facility] ([place] Medical ) 50,000 Branch unit capsule tramadol 50 tramadol 50 No tramadol Ev mg tablet mg tablet 50 mg Orth ope HX HX tablet HX dic Sports Medicin e promethazin promethazin No promethazi [facility] e 25 mg e 25 mg ne 25 mg Medic al tablet TAKE tablet TAKE tablet 1 TABLET BY 1 TABLET BY TAKE 1 MOUTH EVERY MOUTH EVERY TABLET BY 6 HOURS 6 HOURS MOUTH NEEDED MAY NEEDED MAY EVERY 6 MAKE DROWSY MAKE DROWSY HOURS NEEDED MAY MAKE DROWSY promethazin promethazin No promethazi [facility] e-DM 6.25 e-DM 6.25 ne-DM 6.25 Medical mg-15 mg/5 mg-15 mg/5 mg-15 mg/5 mL oral mL oral mL oral syrup TAKE syrup TAKE syrup TAKE 1 TEASPOON 1 TEASPOON 1 TEASPOON BY MOUTH BY MOUTH BY MOUTH EVERY 6 EVERY 6 EVERY 6 HOURS HOURS HOURS NEEDED FOR NEEDED FOR NEEDED FOR COUGH COUGH COUGH Q-Tussin DM Q-Tussin DM No Q-Tussin [facility] 10 mg-100 10 mg-100 DM 10 Medi kasey mg/5 mL mg/5 mL mg-100 oral syrup oral syrup mg/5 mL TAKE 1 - 2 TAKE 1 - 2 oral syrup TEASPOON BY TEASPOON BY TAKE 1 - 2 MOUTH EVERY MOUTH EVERY TEASPOON 4 HOURS 4 HOURS BY MOUTH NEEDED NEEDED EVERY 4 HOURS NEEDED ranitidine ranitidine No ranitidine [facility] 150 mg 150 mg 150 mg Medical tablet TAKE tablet TAKE tablet 2 TABLETS 2 TABLETS TAKE 2 BY MOUTH BY MOUTH TABLETS BY EVERY DAY EVERY DAY MOUTH EVERY DAY ranitidine ranitidine No ranitidine [facility] 300 mg 300 mg 300 mg Medical tablet TAKE tablet TAKE tablet 1 TABLET BY 1 TABLET BY TAKE 1 MOUTH EVERY MOUTH EVERY TABLET BY MORNING MORNING MOUTH EVERY MORNING Remicade Remicade No Remicade Aby via 100 mg 100 mg 100 mg Medical intravenous intravenous intravenou solution solution s solution Inject by Inject by Inject by intravenous intravenous intravenou route. route. s route. Restasis Restasis No Restasis Aby via 0.05 % eye 0.05 % eye 0.05 % eye Medical drops in a drops in a drops in a dropperette dropperette dropperett INSTILL 1 INSTILL 1 e INSTILL DROP INTO DROP INTO 1 DROP BOTH EYES BOTH EYES INTO BOTH TWICE A DAY TWICE A DAY EYES TWICE A DAY sulfamethox sulfamethox No sulfametho [facility] azole 400 azole 400 xazole 400 Medical mg-trimetho mg-trimetho mg-trimeth prim 80 mg prim 80 mg oprim 80 tablet TAKE tablet TAKE mg tablet 2 TABLETS 2 TABLETS TAKE 2 BY ORAL BY ORAL TABLETS BY ROUTE EVERY ROUTE EVERY ORAL ROUTE 12 HOURS 12 HOURS EVERY 12 HOURS sumatriptan sumatriptan No sumatripta [facility] 100 mg 100 mg n 100 mg Medical tablet ONE tablet ONE tablet ONE TAB. AT TAB. AT TAB. AT START OF START OF START OF HEADACHE HEADACHE HEADACHE MAY REPEAT MAY REPEAT MAY REPEAT IN 2 HRS. IN 2 HRS. IN 2 HRS. PRN MAX. PRN MAX. PRN MAX. 2/24HRS. 2/24HRS. 2/24HRS. Suprep Suprep No Suprep [facility] Bowel Prep Bowel Prep Bowel Prep Medical Kit 17.5 Kit 17.5 Kit 17.5 gram-3.13 gram-3.13 gram-3.13 gram-1.6 gram-1.6 gram-1.6 gram oral gram oral gram oral solution solution solution Transderm-S Transderm-S No Transderm- Ev copy operator 1 mg copy operator 1 mg Scop 1 mg Or thope over 3 days over 3 days over 3 dic transdermal transdermal days S ports patch HX patch HX transderma M edicin l patch HX e terconazole terconazole No terconazol [facility] 0.8 % 0.8 % e 0.8 % Medical vaginal vaginal vaginal cream USE cream USE cream USE DIRECTED DIRECTED DIRECTED terconazole terconazole No terconazol [facility] 80 mg 80 mg e 80 mg Medical vaginal vaginal vaginal suppository suppository suppositor INSERT INSERT y INSERT VAGINALLY 1 VAGINALLY 1 VAGINALLY APPLICATORF APPLICATORF 1 UL AT NIGHT UL AT NIGHT APPLICATOR DIRECTED DIRECTED FUL AT NIGHT DIRECTED tizanidine tizanidine No tizanidine [facility] 4 mg tablet 4 mg tablet 4 mg M edical tablet tramadol tramadol No tramadol Aby via 37.5 37.5 37.5 Medical mg-acetamin mg-acetamin mg-acetami ophen 325 ophen 325 nophen 325 mg tablet mg tablet mg tablet TAKE 1 TAKE 1 TAKE 1 TABLET BY TABLET BY TABLET BY MOUTH EVERY MOUTH EVERY MOUTH 4 TO 6 4 TO 6 EVERY 4 TO HOURS HOURS 6 HOURS NEEDED FOR NEEDED FOR NEEDED FOR PAIN PAIN PAIN tramadol 50 tramadol 50 No tramadol [facility] mg tablet mg tablet 50 mg Medi kasey TAKE 1 TAKE 1 tablet TABLET BY TABLET BY TAKE 1 MOUTH TWICE MOUTH TWICE TABLET BY A DAY A DAY MOUTH NEEDED FOR NEEDED FOR TWICE A PAIN PAIN DAY NEEDED FOR PAIN trazodone trazodone No trazodone [facility] 100 mg 100 mg 100 mg Medical tablet tablet tablet trazodone trazodone No trazodone [facility] 50 mg 50 mg 50 mg Medical tablet tablet tablet Trintellix Trintellix No Trintellix [facility] 10 mg 10 mg 10 mg Medical tablet tablet tablet zolpidem 10 zolpidem 10 No zolpidem [facility] mg tablet mg tablet 10 mg Medi kasey TK 1 T PO TK 1 T PO tablet TK QD QD 1 T PO QD zolpidem ER zolpidem ER No zolpidem [facility] 12.5 mg 12.5 mg ER 12.5 mg Med ical tablet,exte tablet,exte tablet,ext nded nded ended release,mul release,mul release,mu tiphase tiphase ltiphase TAKE 1 TAKE 1 TAKE 1 TABLET BY TABLET BY TABLET BY MOUTH AT MOUTH AT MOUTH AT BEDTIME FOR BEDTIME FOR BEDTIME INSOMNIA INSOMNIA FOR INSOMNIA Xanax 0.25 Xanax 0.25 No Xanax 0.25 Ev mg tablet mg tablet mg tablet Orthope HX HX HX dic Sports Medicin e Afluria Afluria No Afluria [facility] (PF) 45 mcg (PF) 45 mcg (PF) 45 (15 mcg x (15 mcg x mcg (15 3)/0.5 mL 3)/0.5 mL mcg x IM syringe IM syringe 3)/0.5 mL TO BE TO BE IM syringe ADMINISTERE ADMINISTERE TO BE D BY D BY ADMINISTER PHARMACIST PHARMACIST ED BY FOR FOR PHARMACIST IMMUNIZATIO IMMUNIZATIO FOR N N IMMUNIZATI ON alprazolam alprazolam No alprazolam [facility] 0.25 mg 0.25 mg 0.25 mg Medica l tablet tablet tablet alprazolam alprazolam No alprazolam [facility] 0.5 mg 0.5 mg 0.5 mg Medical tablet TAKE tablet TAKE tablet 1 TABLET BY 1 TABLET BY TAKE 1 MOUTH 3 MOUTH 3 TABLET BY TIMES A DAY TIMES A DAY MOUTH 3 NEEDED NEEDED TIMES A DAY NEEDED alprazolam alprazolam No alprazolam [facility] 1 mg tablet 1 mg tablet 1 mg M edical tablet amlodipine amlodipine No amlodipine [facility] 2.5 mg 2.5 mg 2.5 mg Medical tablet tablet tablet amoxicillin amoxicillin No amoxicilli [facility] 500 mg 500 mg n 500 mg Medical capsule capsule capsule TAKE 4 TAKE 4 TAKE 4 CAPSULES BY CAPSULES BY CAPSULES MOUTH 1 MOUTH 1 BY MOUTH 1 HOUR PRIOR HOUR PRIOR HOUR PRIOR TO APPT TO APPT TO APPT amoxicillin amoxicillin No amoxicilli [facility] [phone] Medical mg-potassiu mg-potassiu mg-potassi m m um clavulanate clavulanate clavulanat 125 mg 125 mg e 125 mg tablet TAKE tablet TAKE tablet 1 TABLET BY 1 TABLET BY TAKE 1 MOUTH TWICE MOUTH TWICE TABLET BY A DAY WITH A DAY WITH MOUTH FOOD FOOD TWICE A DAY WITH FOOD aripiprazol aripiprazol No aripiprazo [facility] 2 mg e 2 mg le 2 mg Medical tablet tablet tablet azathioprin azathioprin No azathiopri [facility] e 50 mg e 50 mg ne 50 mg Medic al tablet TAKE tablet TAKE tablet 3 TABLETS 3 TABLETS TAKE 3 BY MOUTH BY MOUTH TABLETS BY EVERY DAY EVERY DAY MOUTH EVERY DAY azithromyci azithromyci No azithromyc [facility] n 250 mg n 250 mg in 250 mg Me dical tablet TAKE tablet TAKE tablet 2 TABLETS 2 TABLETS TAKE 2 BY MOUTH BY MOUTH TABLETS BY TODAY, THEN TODAY, THEN MOUTH TAKE 1 TAKE 1 TODAY, TABLET TABLET THEN TAKE DAILY FOR 4 DAILY FOR 4 1 TABLET DAYS DAYS DAILY FOR 4 DAYS Benlysta Benlysta No Benlysta Aby via 200 mg/mL 200 mg/mL 200 mg/mL Medical subcutaneou subcutaneou subcutaneo s s us auto-inject auto-inject auto-injec or inject 1 or inject 1 tor inject pen pen 1 pen subcutaneou subcutaneou subcutaneo sly one sly one usly one time a week time a week time a week benlysta m benlysta m No benlysta m [facility] benlysta benlysta benlysta 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 benzonatate benzonatate No benzonatat [facility] 100 mg 100 mg e 100 mg Medical capsule capsule capsule Boostrix Boostrix No Boostrix Aby via Tdap 2.5 Lf Tdap 2.5 Lf Tdap 2.5 Medical unit-8 unit-8 Lf unit-8 mcg-5 mcg-5 mcg-5 Lf/0.5 mL Lf/0.5 mL Lf/0.5 mL intramuscul intramuscul intramuscu ar syringe ar syringe lar syringe Botox 100 Botox 100 No Botox 100 [facility] unit unit unit Medical injection injection injection INJECT UP INJECT UP INJECT UP TO 300 TO 300 TO 300 UNITS INTO UNITS INTO UNITS INTO THE MUSCLES THE MUSCLES THE OF THE HEAD OF THE HEAD MUSCLES OF AND NECK AND NECK THE HEAD EVERY 3 EVERY 3 AND NECK MONTHS BY MONTHS BY EVERY 3 PRESCRIBER PRESCRIBER MONTHS BY IN OFFICE. IN OFFICE. PRESCRIBER DISCARD DISCARD IN OFFICE. UNUSED UNUSED DISCARD PORTION PORTION UNUSED PORTION Botox 200 Botox 200 No Botox 200 [facility] unit unit unit Medical injection injection injection bromphenira bromphenira No bromphenir [facility] mine-pseudo mine-pseudo amine-pseu Medical ephedrine-D ephedrine-D doephedrin M 2 mg-30 M 2 mg-30 e-DM 2 mg-10 mg/5 mg-10 mg/5 mg-30 mL oral mL oral mg-10 mg/5 syrup syrup mL oral syrup bupropion bupropion No bupropion [facility] HCl XL 150 HCl XL 150 HCl XL 150 Medical mg 24 hr mg 24 hr mg 24 hr tablet, tablet, tablet, extended extended extended release release release bupropion bupropion No bupropion [facility] HCl XL 300 HCl XL 300 HCl XL 300 Medical mg 24 hr mg 24 hr mg 24 hr tablet, tablet, tablet, extended extended extended release release release cefdinir cefdinir No cefdinir Aby via 300 mg 300 mg 300 mg Medical capsule capsule capsule TAKE 2 TAKE 2 TAKE 2 CAPSULES BY CAPSULES BY CAPSULES MOUTH AT MOUTH AT BY MOUTH THE SAME THE SAME AT THE DAILY DAILY DAILY DAILY SAME DAILY DAILY cefuroxime cefuroxime No cefuroxime [facility] axetil 250 axetil 250 axetil 250 Medical mg tablet mg tablet mg tablet TAKE 1 TAKE 1 TAKE 1 TABLET BY TABLET BY TABLET BY MOUTH TWICE MOUTH TWICE MOUTH A DAY A DAY TWICE A DAY cephalexin cephalexin No cephalexin [facility] 500 mg 500 mg 500 mg Medical capsule capsule capsule TAKE ONE TAKE ONE TAKE ONE CAPSULE BY CAPSULE BY CAPSULE BY MOUTH EVERY MOUTH EVERY MOUTH 12 HOURS 12 HOURS EVERY 12 FOR 10 DAYS FOR 10 DAYS HOURS FOR 10 DAYS cevimeline cevimeline No cevimeline [facility] 30 mg 30 mg 30 mg Medical capsule capsule capsule ciprofloxac ciprofloxac No ciprofloxa [facility] in 250 mg in 250 mg justina 250 mg Medical tablet tablet tablet ciprofloxac ciprofloxac No ciprofloxa [facility] in 500 mg in 500 mg justina 500 mg Medical tablet TAKE tablet TAKE tablet 1 TABLET BY 1 TABLET BY TAKE 1 MOUTH EVERY MOUTH EVERY TABLET BY 12 HOURS 12 HOURS MOUTH EVERY 12 HOURS clonidine clonidine No clonidine [facility] HCl 0.1 mg HCl 0.1 mg HCl 0.1 mg Medical tablet tablet tablet colestipol colestipol No colestipol [facility] 1 gram 1 gram 1 gram Medical tablet tablet tablet Denta 5000 Denta 5000 No Denta 5000 [facility] Plus 1.1 % Plus 1.1 % Plus 1.1 % Medical cream USE cream USE cream USE AT AT AT BEDTIME.BRU BEDTIME.BRU BEDTIME.BR SH FOR 2 SH FOR 2 USH FOR 2 MINS, DO MINS, DO MINS, DO NOT RINSE NOT RINSE NOT RINSE AFTERWARDS. AFTERWARDS. AFTERWARDS . DentaGel DentaGel No DentaGel Aby via 1.1 % USE 1.1 % USE 1.1 % USE Medical AT BEDTIME. AT BEDTIME. AT DO NOT EAT DO NOT EAT BEDTIME. OR DRINK OR DRINK DO NOT EAT AFTER USE AFTER USE OR DRINK AFTER USE dexamethaso dexamethaso No dexamethas [facility] ne 2 mg ne 2 mg one 2 mg Medic al tablet TAKE tablet TAKE tablet 1 TABLET BY 1 TABLET BY TAKE 1 MOUTH TWICE MOUTH TWICE TABLET BY A DAY A DAY MOUTH TWICE A DAY dextroamphe dextroamphe No dextroamph [facility] tamine-amph tamine-amph etamine-am Medical etamine 10 etamine 10 phetamine mg tablet mg tablet 10 mg TAKE 1 TAKE 1 tablet TABLET BY TABLET BY TAKE 1 MOUTH 2 MOUTH 2 TABLET BY TIMES DAILY TIMES DAILY MOUTH 2 NEEDED NEEDED TIMES DAILY NEEDED dextroamphe dextroamphe No dextroamph [facility] tamine-amph tamine-amph etamine-am Medical etamine 15 etamine 15 phetamine mg tablet mg tablet 15 mg tablet dextroamphe dextroamphe No dextroamph [facility] tamine-amph tamine-amph etamine-am Medical etamine 7.5 etamine 7.5 phetamine mg tablet mg tablet 7.5 mg tablet diethylprop diethylprop No diethylpro [facility] ion 25 mg ion 25 mg pion 25 mg Medical tablet TAKE tablet TAKE tablet 1 TABLET BY 1 TABLET BY TAKE 1 MOUTH THREE MOUTH THREE TABLET BY TIMES DAILY TIMES DAILY MOUTH 1 HOUR 1 HOUR THREE BEFORE BEFORE TIMES MEALS MEALS DAILY 1 HOUR BEFORE MEALS diphenoxyla diphenoxyla No diphenoxyl [facility] te-atropine te-atropine ate-atropi Medical 2.5 2.5 ne 2.5 mg-0.025 mg mg-0.025 mg mg-0.025 tablet tablet mg tablet doxepin 25 doxepin 25 No doxepin 25 [facility] mg capsule mg capsule mg capsule Medical Emgality Emgality No Emgality Aby via 120 mg/mL 120 mg/mL 120 mg/mL Medical subcutaneou subcutaneou subcutaneo s syringe s syringe us syringe Emgality Emgality No Emgality Ayb via Pen 120 Pen 120 Pen 120 Medica l mg/mL mg/mL mg/mL subcutaneou subcutaneou subcutaneo s pen s pen us pen injector injector injector INJECT INJECT INJECT SUBCUTANEOU SUBCUTANEOU SUBCUTANEO SLY ONCE A SLY ONCE A USLY ONCE MONTH MONTH A MONTH enoxaparin enoxaparin No enoxaparin [facility] 30 mg/0.3 30 mg/0.3 30 mg/0.3 Medical mL mL mL subcutaneou subcutaneou subcutaneo s syringe s syringe us syringe escitalopra escitalopra No escitalopr [facility] m 20 mg m 20 mg am 20 mg Medic al tablet TAKE tablet TAKE tablet 1 TABLET BY 1 TABLET BY TAKE 1 MOUTH ONCE MOUTH ONCE TABLET BY A DAY A DAY MOUTH ONCE A DAY eszopiclone eszopiclone No eszopiclon [facility] 3 mg tablet 3 mg tablet e 3 mg Medical TAKE 1 TAKE 1 tablet TABLET BY TABLET BY TAKE 1 MOUTH AT MOUTH AT TABLET BY BEDTIME BEDTIME MOUTH AT BEDTIME famotidine famotidine No famotidine [facility] 40 mg 40 mg 40 mg Medical tablet tablet tablet Fluad Quad Fluad Quad No Fluad Quad [facility] ([phone]( Medical 5yr up)(PF) 5yr up)(PF) 65yr 60 mcg (15 60 mcg (15 up)(PF) 60 mcg x mcg x mcg (15 4)/0.5mL IM 4)/0.5mL IM mcg x syringe syringe 4)/0.5mL IM syringe fluconazole fluconazole No fluconazol [facility] 150 mg 150 mg e 150 mg Medical tablet TAKE tablet TAKE tablet 1 TABLET BY 1 TABLET BY TAKE 1 MOUTH NOW MOUTH NOW TABLET BY MAY REPEAT MAY REPEAT MOUTH NOW IN 3 DAYS IN 3 DAYS MAY REPEAT IN 3 DAYS Fluzone Fluzone No Fluzone [facility] High-Dose High-Dose High-Dose Medical 2016-2017 (PF) 180 (PF) 180 (PF) 180 mcg/0.5 mL mcg/0.5 mL mcg/0.5 mL intramuscul intramuscul intramuscu ar syringe ar syringe lar syringe Fluzone Fluzone No Fluzone [facility] High-Dose High-Dose High-Dose Medical 2017-2018 (PF) 180 (PF) 180 (PF) 180 mcg/0.5 mL mcg/0.5 mL mcg/0.5 mL intramuscul intramuscul intramuscu ar syringe ar syringe lar syringe Fluzone Fluzone No Fluzone [facility] High-Dose High-Dose High-Dose Medical (PF) 180 (PF) 180 (PF) 180 mcg/0.5 mL mcg/0.5 mL mcg/0.5 mL intramuscul intramuscul intramuscu ar syringe ar syringe lar TO BE TO BE syringe TO ADMINISTERE ADMINISTERE BE D BY D BY ADMINISTER PHARMACIST PHARMACIST ASH DURANT FOR PHARMACIST IMMUNIZATIO IMMUNIZATIO FOR N N IMMUNIZATI ON furosemide furosemide No furosemide [facility] 20 mg 20 mg 20 mg Medical tablet tablet tablet furosemide furosemide No furosemide [facility] 40 mg 40 mg 40 mg Medical tablet TK 1 tablet TK 1 tablet TK T PO QAM. T PO QAM. 1 T PO QAM. gabapentin gabapentin No gabapentin [facility] 100 mg 100 mg 100 mg Medical capsule capsule capsule TAKE ONE TAKE ONE TAKE ONE CAPSULE BY CAPSULE BY CAPSULE BY MOUTH 3 MOUTH 3 MOUTH 3 TIMES A DAY TIMES A DAY TIMES A STOP LYRICA STOP LYRICA DAY STOP LYRICA gabapentin gabapentin No gabapentin [facility] 300 mg 300 mg 300 mg Medical capsule capsule capsule hydrochloro hydrochloro No hydrochlor [facility] thiazide 25 thiazide 25 othiazide Medical mg tablet mg tablet 25 mg tablet hydrocodone hydrocodone No hydrocodon [facility] 10 10 e 10 Medical mg-acetamin mg-acetamin mg-acetami ophen 325 ophen 325 nophen 325 mg tablet mg tablet mg tablet TK 1 T PO TK 1 T PO TK 1 T PO TID TID TID hydrocodone hydrocodone No hydrocodon [facility] 5 5 e 5 Medical mg-acetamin mg-acetamin mg-acetami ophen 325 ophen 325 nophen 325 mg tablet mg tablet mg tablet TAKE 1 TAKE 1 TAKE 1 TABLET BY TABLET BY TABLET BY MOUTH 4 MOUTH 4 MOUTH 4 TIMES DAILY TIMES DAILY TIMES NEEDED NEEDED DAILY FOR PAIN FOR PAIN NEEDED FOR MAY MAKE MAY MAKE PAIN MAY DROWSY DROWSY MAKE DROWSY hydrocodone hydrocodone No hydrocodon [facility] 7.5 7.5 e 7.5 Medical mg-acetamin mg-acetamin mg-acetami ophen 325 ophen 325 nophen 325 mg tablet mg tablet mg tablet TK 1 T PO TK 1 T PO TK 1 T PO QID PRN. QID PRN. QID PRN. hyoscyamine hyoscyamine No hyoscyamin [facility] 0.125 mg 0.125 mg e 0.125 mg M edical sublingual sublingual sublingual tablet tablet tablet hyoscyamine hyoscyamine No hyoscyamin [facility] sulfate sulfate e sulfate Medi kasey 0.125 mg 0.125 mg 0.125 mg tablet TAKE tablet TAKE tablet 1 TABLET BY 1 TABLET BY TAKE 1 MOUTH 3 MOUTH 3 TABLET BY TIMES A DAY TIMES A DAY MOUTH 3 TIMES A DAY Jardiance Jardiance No Jardiance [facility] 10 mg 10 mg 10 mg Medical tablet TAKE tablet TAKE tablet 1 TABLET BY 1 TABLET BY TAKE 1 MOUTH EVERY MOUTH EVERY TABLET BY MORNING MORNING MOUTH EVERY MORNING Lagevrio Lagevrio No Lagevrio Aby via 200 mg 200 mg 200 mg Medical capsule capsule capsule (EUA) TAKE (EUA) TAKE (EUA) TAKE 4 CAPSULES 4 CAPSULES 4 CAPSULES BY MOUTH BY MOUTH BY MOUTH TWICE DAILY TWICE DAILY TWICE DAILY levocetiriz levocetiriz No levocetiri [facility] ine 5 mg ine 5 mg zine 5 mg Me dical tablet TAKE tablet TAKE tablet 2 TABLETS 2 TABLETS TAKE 2 BY MOUTH BY MOUTH TABLETS BY EVERY DAY EVERY DAY MOUTH EVERY DAY levofloxaci levofloxaci No levofloxac [facility] n 500 mg n 500 mg in 500 mg Me dical tablet TAKE tablet TAKE tablet 1 TABLET BY 1 TABLET BY TAKE 1 MOUTH EVERY MOUTH EVERY TABLET BY DAY DAY MOUTH EVERY DAY lidocaine 5 lidocaine 5 No lidocaine [facility] % topical % topical 5 % Medic al patch patch topical patch losartan losartan No losartan Aby via 100 mg 100 mg 100 mg Medical tablet tablet tablet losartan 25 losartan 25 No losartan [facility] mg tablet mg tablet 25 mg Medi kasey TAKE 1 TAKE 1 tablet TABLET BY TABLET BY TAKE 1 MOUTH EVERY MOUTH EVERY TABLET BY DAY DAY MOUTH EVERY DAY losartan 50 losartan 50 No losartan [facility] mg tablet mg tablet 50 mg Medi kasey tablet metformin metformin No metformin [facility] 1,000 mg 1,000 mg 1,000 mg Med ical tablet TAKE tablet TAKE tablet 1 TABLET BY 1 TABLET BY TAKE 1 MOUTH 2 MOUTH 2 TABLET BY TIMES A DAY TIMES A DAY MOUTH 2 TIMES A DAY metformin metformin No metformin [facility] 500 mg 500 mg 500 mg Medical tablet TK 1 tablet TK 1 tablet TK T PO BID Q T PO BID Q 1 T PO BID 12 H 12 H Q 12 H methylpredn methylpredn No methylpred [facility] isolone 4 isolone 4 nisolone 4 Medical mg tablets mg tablets mg tablets in a dose in a dose in a dose pack TAKE pack TAKE pack TAKE DIRECTED DIRECTED DIRECTED metoclopram metoclopram No metoclopra [facility] dagmar 10 mg dagmar 10 mg mide 10 mg Medical tablet TAKE tablet TAKE tablet 1 TABLET BY 1 TABLET BY TAKE 1 MOUTH 4 MOUTH 4 TABLET BY TIMES A DAY TIMES A DAY MOUTH 4 TIMES A DAY metronidazo metronidazo No metronidaz [facility] le 500 mg le 500 mg ole 500 mg Medical tablet TAKE tablet TAKE tablet 1 TABLET BY 1 TABLET BY TAKE 1 MOUTH 3 MOUTH 3 TABLET BY TIMES A DAY TIMES A DAY MOUTH 3 TIMES A DAY mirtazapine mirtazapine No mirtazapin [facility] 7.5 mg 7.5 mg e 7.5 mg Medical tablet tablet tablet modafinil modafinil No modafinil [facility] 100 mg 100 mg 100 mg Medical tablet TAKE tablet TAKE tablet 1 TABLET BY 1 TABLET BY TAKE 1 MOUTH ONCE MOUTH ONCE TABLET BY A DAY (IN A DAY (IN MOUTH ONCE THE THE A DAY (IN MORNING) MORNING) THE MORNING) modafinil modafinil No modafinil [facility] 200 mg 200 mg 200 mg Medical tablet TAKE tablet TAKE tablet 1 TABLET BY 1 TABLET BY TAKE 1 MOUTH EVERY MOUTH EVERY TABLET BY MORNING MORNING MOUTH EVERY MORNING MoviPrep MoviPrep No MoviPrep Aby via 100 100 100 Medical gram-7.5 gram-7.5 gram-7.5 gram-2.691 gram-2.691 gram-2.691 gram oral gram oral gram oral powder powder powder packet packet packet mupirocin 2 mupirocin 2 No mupirocin [facility] % topical % topical 2 % Medic al ointment ointment topical APPLY TO APPLY TO ointment AFFECTED AFFECTED APPLY TO AREA 3 AREA 3 AFFECTED TIMES A DAY TIMES A DAY AREA 3 TOPICALLY TOPICALLY TIMES A DAY TOPICALLY mycophenola mycophenola No mycophenol [facility] te mofetil te mofetil ate Med ical 500 mg 500 mg mofetil tablet tablet 500 mg tablet nifedipine nifedipine No nifedipine [facility] ER 30 mg ER 30 mg ER 30 mg Med ical tablet,exte tablet,exte tablet,ext nded nded ended release release release nitrofurant nitrofurant No nitrofuran [facility] oin oin toin Medical monohydrate monohydrate monohydrat /macrocryst /macrocryst e/macrocry als 100 mg als 100 mg stals 100 capsule capsule mg capsule nortriptyli nortriptyli No nortriptyl [facility] ne 10 mg ne 10 mg ine 10 mg Me dical capsule capsule capsule TAKE 3 TAKE 3 TAKE 3 CAPSULES BY CAPSULES BY CAPSULES MOUTH AT MOUTH AT BY MOUTH BEDTIME BEDTIME AT BEDTIME nystatin nystatin No nystatin Aby via 100,000 100,000 100,000 Medica l unit/mL unit/mL unit/mL oral oral oral suspension suspension suspension 2 ML, SWISH 2 ML, SWISH 2 ML, AND SWALLOW AND SWALLOW SWISH AND EVERY SIX EVERY SIX SWALLOW HOURS. HOURS. EVERY SIX HOURS. omeprazole omeprazole No omeprazole [facility] 40 mg 40 mg 40 mg Medical capsule,del capsule,del capsule,de ayed ayed layed release release release TAKE ONE TAKE ONE TAKE ONE CAPSULE BY CAPSULE BY CAPSULE BY MOUTH EVERY MOUTH EVERY MOUTH DAY DAY EVERY DAY ondansetron ondansetron No ondansetro [facility] 4 mg 4 mg n 4 mg Medical disintegrat disintegrat disintegra ing tablet ing tablet ting tablet ondansetron ondansetron No ondansetro [facility] HCl 4 mg HCl 4 mg n HCl 4 mg M edical tablet TAKE tablet TAKE tablet 1 TABLET BY 1 TABLET BY TAKE 1 MOUTH EVERY MOUTH EVERY TABLET BY 8 HOURS 8 HOURS MOUTH NEEDED FOR NEEDED FOR EVERY 8 NAUSEA AND NAUSEA AND HOURS VOMITING VOMITING NEEDED FOR NAUSEA AND VOMITING ondansetron ondansetron No ondansetro [facility] HCl 8 mg HCl 8 mg n HCl 8 mg M edical tablet tablet tablet OneTouch OneTouch No OneTouch Aby via [facility] Lancets 33 Lancets 33 Lancets 33 gauge TEST gauge TEST gauge TEST EVERY DAY EVERY DAY EVERY DAY OneTouch OneTouch No OneTouch Aby via Ultra Blue Ultra Blue Ultra Blue Medical Test Strip Test Strip Test Strip OneTouch OneTouch No OneTouch Aby via Ultra Test Ultra Test Ultra Test Medical strips TEST strips TEST strips EVERY DAY EVERY DAY TEST EVERY DAY OneTouch OneTouch No OneTouch Aby via Ultra2 Ultra2 Ultra2 Medical Meter Meter Meter OneTouch OneTouch No OneTouch Aby via Ultra2 Ultra2 Ultra2 Medical Meter kit Meter kit Meter kit USE USE USE DIRECTED DIRECTED DIRECTED OneTouch OneTouch No OneTouch Aby via UltraSoft UltraSoft UltraSoft Medical Lancets Lancets Lancets oxiconazole oxiconazole No oxiconazol [facility] 1 % topical 1 % topical e 1 % Medical cream cream topical cream pantoprazol pantoprazol No pantoprazo [facility] e 40 mg e 40 mg le 40 mg Medic al tablet,long tablet,long tablet,del yed release yed release ayed TAKE 1 TAKE 1 release TABLET BY TABLET BY TAKE 1 MOUTH EVERY MOUTH EVERY TABLET BY DAY DAY MOUTH EVERY DAY phentermine phentermine No phentermin [facility] 37.5 mg 37.5 mg e 37.5 mg Medi kasey tablet TAKE tablet TAKE tablet 1 TABLET BY 1 TABLET BY TAKE 1 MOUTH EVERY MOUTH EVERY TABLET BY DAY DAY MOUTH EVERY DAY potassium potassium No potassium [facility] chloride ER chloride ER chloride Medical 20 mEq 20 mEq ER 20 mEq tablet,exte tablet,exte tablet,ext nded nded ended release(par release(par release(pa t/cryst) t/cryst) rt/cryst) TAKE 1 TAKE 1 TAKE 1 TABLET BY TABLET BY TABLET BY MOUTH EVERY MOUTH EVERY MOUTH DAY DAY EVERY DAY prednisone prednisone No prednisone [facility] 10 mg 10 mg 10 mg Medical tablet tablet tablet Prevnar 13 Prevnar 13 No Prevnar 13 [facility] (PF) 0.5 mL (PF) 0.5 mL (PF) 0.5 Medical intramuscul intramuscul mL ar syringe ar syringe intramuscu TO BE TO BE lar ADMINISTERE ADMINISTERE syringe TO D BY D BY BE PHARMACIST PHARMACIST ADMINISTER FOR FOR ED BY IMMUNIZATIO IMMUNIZATIO PHARMACIST N N FOR IMMUNIZATI ON promethazin promethazin No promethazi [facility] e 25 mg e 25 mg ne 25 mg Medic al tablet TAKE tablet TAKE tablet 1 TABLET BY 1 TABLET BY TAKE 1 MOUTH EVERY MOUTH EVERY TABLET BY 6 HOURS 6 HOURS MOUTH NEEDED MAY NEEDED MAY EVERY 6 MAKE DROWSY MAKE DROWSY HOURS NEEDED MAY MAKE DROWSY promethazin promethazin No promethazi [facility] e-DM 6.25 e-DM 6.25 ne-DM 6.25 Medical mg-15 mg/5 mg-15 mg/5 mg-15 mg/5 mL oral mL oral mL oral syrup TAKE syrup TAKE syrup TAKE 1 TEASPOON 1 TEASPOON 1 TEASPOON BY MOUTH BY MOUTH BY MOUTH EVERY 6 EVERY 6 EVERY 6 HOURS HOURS HOURS NEEDED FOR NEEDED FOR NEEDED FOR COUGH COUGH COUGH Q-Tussin DM Q-Tussin DM No Q-Tussin [facility] 10 mg-100 10 mg-100 DM 10 Medi kasey mg/5 mL mg/5 mL mg-100 oral syrup oral syrup mg/5 mL TAKE 1 - 2 TAKE 1 - 2 oral syrup TEASPOON BY TEASPOON BY TAKE 1 - 2 MOUTH EVERY MOUTH EVERY TEASPOON 4 HOURS 4 HOURS BY MOUTH NEEDED NEEDED EVERY 4 HOURS NEEDED ranitidine ranitidine No ranitidine [facility] 150 mg 150 mg 150 mg Medical tablet TAKE tablet TAKE tablet 2 TABLETS 2 TABLETS TAKE 2 BY MOUTH BY MOUTH TABLETS BY EVERY DAY EVERY DAY MOUTH EVERY DAY ranitidine ranitidine No ranitidine [facility] 300 mg 300 mg 300 mg Medical tablet TAKE tablet TAKE tablet 1 TABLET BY 1 TABLET BY TAKE 1 MOUTH EVERY MOUTH EVERY TABLET BY MORNING MORNING MOUTH EVERY MORNING Remicade Remicade No Remicade [facility]by via 100 mg 100 mg 100 mg Medical intravenous intravenous intravenou solution solution s solution Inject by Inject by Inject by intravenous intravenous intravenou route. route. s route. Restasis Restasis No Restasis Aby via 0.05 % eye 0.05 % eye 0.05 % eye Medical drops in a drops in a drops in a dropperette dropperette dropperett INSTILL 1 INSTILL 1 e INSTILL DROP INTO DROP INTO 1 DROP BOTH EYES BOTH EYES INTO BOTH TWICE A DAY TWICE A DAY EYES TWICE A DAY sulfamethox sulfamethox No sulfametho [facility] azole 400 azole 400 xazole 400 Medical mg-trimetho mg-trimetho mg-trimeth prim 80 mg prim 80 mg oprim 80 tablet TAKE tablet TAKE mg tablet 2 TABLETS 2 TABLETS TAKE 2 BY ORAL BY ORAL TABLETS BY ROUTE EVERY ROUTE EVERY ORAL ROUTE 12 HOURS 12 HOURS EVERY 12 HOURS sumatriptan sumatriptan No sumatripta [facility] 100 mg 100 mg n 100 mg Medical tablet ONE tablet ONE tablet ONE TAB. AT TAB. AT TAB. AT START OF START OF START OF HEADACHE HEADACHE HEADACHE MAY REPEAT MAY REPEAT MAY REPEAT IN 2 HRS. IN 2 HRS. IN 2 HRS. PRN MAX. PRN MAX. PRN MAX. 2/24HRS. 2/24HRS. 2/24HRS. Suprep Suprep No Suprep [facility] Bowel Prep Bowel Prep Bowel Prep Medical Kit 17.5 Kit 17.5 Kit 17.5 gram-3.13 gram-3.13 gram-3.13 gram-1.6 gram-1.6 gram-1.6 gram oral gram oral gram oral solution solution solution terconazole terconazole No terconazol [facility] 0.8 % 0.8 % e 0.8 % Medical vaginal vaginal vaginal cream USE cream USE cream USE DIRECTED DIRECTED DIRECTED terconazole terconazole No terconazol [facility] 80 mg 80 mg e 80 mg Medical vaginal vaginal vaginal suppository suppository suppositor INSERT INSERT y INSERT VAGINALLY 1 VAGINALLY 1 VAGINALLY APPLICATORF APPLICATORF 1 UL AT NIGHT UL AT NIGHT APPLICATOR DIRECTED DIRECTED FUL AT NIGHT DIRECTED tizanidine tizanidine No tizanidine [facility] 4 mg tablet 4 mg tablet 4 mg M edical tablet tramadol tramadol No tramadol Aby via 37.5 37.5 37.5 Medical mg-acetamin mg-acetamin mg-acetami ophen 325 ophen 325 nophen 325 mg tablet mg tablet mg tablet TAKE 1 TAKE 1 TAKE 1 TABLET BY TABLET BY TABLET BY MOUTH EVERY MOUTH EVERY MOUTH 4 TO 6 4 TO 6 EVERY 4 TO HOURS HOURS 6 HOURS NEEDED FOR NEEDED FOR NEEDED FOR PAIN PAIN PAIN tramadol 50 tramadol 50 No tramadol [facility] mg tablet mg tablet 50 mg Medi kasey TAKE 1 TAKE 1 tablet TABLET BY TABLET BY TAKE 1 MOUTH TWICE MOUTH TWICE TABLET BY A DAY A DAY MOUTH NEEDED FOR NEEDED FOR TWICE A PAIN PAIN DAY NEEDED FOR PAIN trazodone trazodone No trazodone [facility] 100 mg 100 mg 100 mg Medical tablet tablet tablet trazodone trazodone No trazodone [facility] 50 mg 50 mg 50 mg Medical tablet tablet tablet Trintellix Trintellix No Trintellix [facility] 10 mg 10 mg 10 mg Medical tablet tablet tablet zolpidem 10 zolpidem 10 No zolpidem [facility] mg tablet mg tablet 10 mg Medi kasey TK 1 T PO TK 1 T PO tablet TK QD QD 1 T PO QD zolpidem ER zolpidem ER No zolpidem [facility] 12.5 mg 12.5 mg ER 12.5 mg Med ical tablet,exte tablet,exte tablet,ext nded nded ended release,mul release,mul release,mu tiphase tiphase ltiphase TAKE 1 TAKE 1 TAKE 1 TABLET BY TABLET BY TABLET BY MOUTH AT MOUTH AT MOUTH AT BEDTIME FOR BEDTIME FOR BEDTIME INSOMNIA INSOMNIA FOR INSOMNIA Afluria Afluria No Afluria [facility] (PF) 45 mcg (PF) 45 mcg (PF) 45 (15 mcg x (15 mcg x mcg (15 3)/0.5 mL 3)/0.5 mL mcg x IM syringe IM syringe 3)/0.5 mL TO BE TO BE IM syringe ADMINISTERE ADMINISTERE TO BE D BY D BY ADMINISTER PHARMACIST PHARMACIST ED BY FOR FOR PHARMACIST IMMUNIZATIO IMMUNIZATIO FOR N N IMMUNIZATI ON Afluria Afluria No Afluria [facility] (PF) 45 mcg (PF) 45 mcg (PF) 45 (15 mcg x (15 mcg x mcg (15 3)/0.5 mL 3)/0.5 mL mcg x IM syringe IM syringe 3)/0.5 mL TO BE TO BE IM syringe ADMINISTERE ADMINISTERE TO BE D BY D BY ADMINISTER PHARMACIST PHARMACIST ED BY FOR FOR PHARMACIST IMMUNIZATIO IMMUNIZATIO FOR N N IMMUNIZATI ON alprazolam alprazolam No alprazolam [facility] 0.25 mg 0.25 mg 0.25 mg Medica l tablet tablet tablet alprazolam alprazolam No alprazolam [facility] 0.5 mg 0.5 mg 0.5 mg Medical tablet TAKE tablet TAKE tablet 1 TABLET BY 1 TABLET BY TAKE 1 MOUTH 3 MOUTH 3 TABLET BY TIMES A DAY TIMES A DAY MOUTH 3 NEEDED NEEDED TIMES A DAY NEEDED alprazolam alprazolam No alprazolam [facility] 1 mg tablet 1 mg tablet 1 mg M edical tablet amlodipine amlodipine No amlodipine [facility] 2.5 mg 2.5 mg 2.5 mg Medical tablet tablet tablet amoxicillin amoxicillin No amoxicilli [facility] 500 mg 500 mg n 500 mg Medical capsule capsule capsule TAKE 4 TAKE 4 TAKE 4 CAPSULES BY CAPSULES BY CAPSULES MOUTH 1 MOUTH 1 BY MOUTH 1 HOUR PRIOR HOUR PRIOR HOUR PRIOR TO APPT TO APPT TO APPT amoxicillin amoxicillin No amoxicilli [facility] [phone] Medical mg-potassiu mg-potassiu mg-potassi m m um clavulanate clavulanate clavulanat 125 mg 125 mg e 125 mg tablet TAKE tablet TAKE tablet 1 TABLET BY 1 TABLET BY TAKE 1 MOUTH TWICE MOUTH TWICE TABLET BY A DAY WITH A DAY WITH MOUTH FOOD FOOD TWICE A DAY WITH FOOD alprazolam alprazolam No alprazolam [facility] 0.25 mg 0.25 mg 0.25 mg Medica l tablet tablet tablet aripiprazol aripiprazol No aripiprazo [facility] e 2 mg e 2 mg le 2 mg Medical tablet tablet tablet azathioprin azathioprin No azathiopri [facility] e 50 mg e 50 mg ne 50 mg Medic al tablet TAKE tablet TAKE tablet 3 TABLETS 3 TABLETS TAKE 3 BY MOUTH BY MOUTH TABLETS BY EVERY DAY EVERY DAY MOUTH EVERY DAY azithromyci azithromyci No azithromyc [facility] n 250 mg n 250 mg in 250 mg Me dical tablet TAKE tablet TAKE tablet 2 TABLETS 2 TABLETS TAKE 2 BY MOUTH BY MOUTH TABLETS BY TODAY, THEN TODAY, THEN MOUTH TAKE 1 TAKE 1 TODAY, TABLET TABLET THEN TAKE DAILY FOR 4 DAILY FOR 4 1 TABLET DAYS DAYS DAILY FOR 4 DAYS Benlysta Benlysta No Benlysta Aby via 200 mg/mL 200 mg/mL 200 mg/mL Medical subcutaneou subcutaneou subcutaneo s s us auto-inject auto-inject auto-injec or inject 1 or inject 1 tor inject pen pen 1 pen subcutaneou subcutaneou subcutaneo sly one sly one usly one time a week time a week time a week benlysta m benlysta m No benlysta m [facility] benlysta benlysta benlysta 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 benzonatate benzonatate No benzonatat [facility] 100 mg 100 mg e 100 mg Medical capsule capsule capsule Boostrix Boostrix No Boostrix Aby via Tdap 2.5 Lf Tdap 2.5 Lf Tdap 2.5 Medical unit-8 unit-8 Lf unit-8 mcg-5 mcg-5 mcg-5 Lf/0.5 mL Lf/0.5 mL Lf/0.5 mL intramuscul intramuscul intramuscu ar syringe ar syringe lar syringe Botox 100 Botox 100 No Botox 100 [facility] unit unit unit Medical injection injection injection INJECT UP INJECT UP INJECT UP TO 300 TO 300 TO 300 UNITS INTO UNITS INTO UNITS INTO THE MUSCLES THE MUSCLES THE OF THE HEAD OF THE HEAD MUSCLES OF AND NECK AND NECK THE HEAD EVERY 3 EVERY 3 AND NECK MONTHS BY MONTHS BY EVERY 3 PRESCRIBER PRESCRIBER MONTHS BY IN OFFICE. IN OFFICE. PRESCRIBER DISCARD DISCARD IN OFFICE. UNUSED UNUSED DISCARD PORTION PORTION UNUSED PORTION Botox 200 Botox 200 No Botox 200 [facility] unit unit unit Medical injection injection injection bromphenira bromphenira No bromphenir [facility] mine-pseudo mine-pseudo amine-pseu Medical ephedrine-D ephedrine-D doephedrin M 2 mg-30 M 2 mg-30 e-DM 2 mg-10 mg/5 mg-10 mg/5 mg-30 mL oral mL oral mg-10 mg/5 syrup syrup mL oral syrup alprazolam alprazolam No alprazolam [facility] 0.5 mg 0.5 mg 0.5 mg Medical tablet TAKE tablet TAKE tablet 1 TABLET BY 1 TABLET BY TAKE 1 MOUTH 3 MOUTH 3 TABLET BY TIMES A DAY TIMES A DAY MOUTH 3 NEEDED NEEDED TIMES A DAY NEEDED bupropion bupropion No bupropion [facility] HCl XL 150 HCl XL 150 HCl XL 150 Medical mg 24 hr mg 24 hr mg 24 hr tablet, tablet, tablet, extended extended extended release release release bupropion bupropion No bupropion [facility] HCl XL 300 HCl XL 300 HCl XL 300 Medical mg 24 hr mg 24 hr mg 24 hr tablet, tablet, tablet, extended extended extended release release release cefdinir cefdinir No cefdinir Aby via 300 mg 300 mg 300 mg Medical capsule capsule capsule TAKE 2 TAKE 2 TAKE 2 CAPSULES BY CAPSULES BY CAPSULES MOUTH AT MOUTH AT BY MOUTH THE SAME THE SAME AT THE DAILY DAILY DAILY DAILY SAME DAILY DAILY cefuroxime cefuroxime No cefuroxime [facility] axetil 250 axetil 250 axetil 250 Medical mg tablet mg tablet mg tablet TAKE 1 TAKE 1 TAKE 1 TABLET BY TABLET BY TABLET BY MOUTH TWICE MOUTH TWICE MOUTH A DAY A DAY TWICE A DAY cephalexin cephalexin No cephalexin [facility] 500 mg 500 mg 500 mg Medical capsule capsule capsule TAKE ONE TAKE ONE TAKE ONE CAPSULE BY CAPSULE BY CAPSULE BY MOUTH EVERY MOUTH EVERY MOUTH 12 HOURS 12 HOURS EVERY 12 FOR 10 DAYS FOR 10 DAYS HOURS FOR 10 DAYS cevimeline cevimeline No cevimeline [facility] 30 mg 30 mg 30 mg Medical capsule capsule capsule TAKE 1 TAKE 1 TAKE 1 CAPSULE BY CAPSULE BY CAPSULE BY MOUTH THREE MOUTH THREE MOUTH TIMES DAILY TIMES DAILY THREE TIMES DAILY ciprofloxac ciprofloxac No ciprofloxa [facility] in 250 mg in 250 mg justina 250 mg Medical tablet tablet tablet ciprofloxac ciprofloxac No ciprofloxa [facility] in 500 mg in 500 mg justina 500 mg Medical tablet TAKE tablet TAKE tablet 1 TABLET BY 1 TABLET BY TAKE 1 MOUTH EVERY MOUTH EVERY TABLET BY 12 HOURS 12 HOURS MOUTH EVERY 12 HOURS clonidine clonidine No clonidine [facility] HCl 0.1 mg HCl 0.1 mg HCl 0.1 mg Medical tablet tablet tablet colestipol colestipol No colestipol [facility] 1 gram 1 gram 1 gram Medical tablet tablet tablet alprazolam alprazolam No alprazolam [facility] 1 mg tablet 1 mg tablet 1 mg M edical tablet Denta 5000 Denta 5000 No Denta 5000 [facility] Plus 1.1 % Plus 1.1 % Plus 1.1 % Medical cream USE cream USE cream USE AT AT AT BEDTIME.BRU BEDTIME.BRU BEDTIME.BR SH FOR 2 SH FOR 2 USH FOR 2 MINS, DO MINS, DO MINS, DO NOT RINSE NOT RINSE NOT RINSE AFTERWARDS. AFTERWARDS. AFTERWARDS . DentaGel DentaGel No DentaGel Aby via 1.1 % USE 1.1 % USE 1.1 % USE Medical AT BEDTIME. AT BEDTIME. AT DO NOT EAT DO NOT EAT BEDTIME. OR DRINK OR DRINK DO NOT EAT AFTER USE AFTER USE OR DRINK AFTER USE dexamethaso dexamethaso No dexamethas [facility] ne 2 mg ne 2 mg one 2 mg Medic al tablet TAKE tablet TAKE tablet 1 TABLET BY 1 TABLET BY TAKE 1 MOUTH TWICE MOUTH TWICE TABLET BY A DAY A DAY MOUTH TWICE A DAY dextroamphe dextroamphe No dextroamph [facility] tamine-amph tamine-amph etamine-am Medical etamine 10 etamine 10 phetamine mg tablet mg tablet 10 mg TAKE 1 TAKE 1 tablet TABLET BY TABLET BY TAKE 1 MOUTH 2 MOUTH 2 TABLET BY TIMES DAILY TIMES DAILY MOUTH 2 NEEDED NEEDED TIMES DAILY NEEDED dextroamphe dextroamphe No dextroamph [facility] tamine-amph tamine-amph etamine-am Medical etamine 15 etamine 15 phetamine mg tablet mg tablet 15 mg tablet dextroamphe dextroamphe No dextroamph [facility] tamine-amph tamine-amph etamine-am Medical etamine 7.5 etamine 7.5 phetamine mg tablet mg tablet 7.5 mg tablet diethylprop diethylprop No diethylpro [facility] ion 25 mg ion 25 mg pion 25 mg Medical tablet TAKE tablet TAKE tablet 1 TABLET BY 1 TABLET BY TAKE 1 MOUTH THREE MOUTH THREE TABLET BY TIMES DAILY TIMES DAILY MOUTH 1 HOUR 1 HOUR THREE BEFORE BEFORE TIMES MEALS MEALS DAILY 1 HOUR BEFORE MEALS diphenoxyla diphenoxyla No diphenoxyl [facility] te-atropine te-atropine ate-atropi Medical 2.5 2.5 ne 2.5 mg-0.025 mg mg-0.025 mg mg-0.025 tablet tablet mg tablet doxepin 25 doxepin 25 No doxepin 25 [facility] mg capsule mg capsule mg capsule Medical Emgality Emgality No Emgality Aby via 120 mg/mL 120 mg/mL 120 mg/mL Medical subcutaneou subcutaneou subcutaneo s syringe s syringe us syringe amlodipine amlodipine No amlodipine [facility] 2.5 mg 2.5 mg 2.5 mg Medical tablet tablet tablet Emgality Emgality No Emgality Aby via Pen 120 Pen 120 Pen 120 Medica l mg/mL mg/mL mg/mL subcutaneou subcutaneou subcutaneo s pen s pen us pen injector injector injector INJECT INJECT INJECT SUBCUTANEOU SUBCUTANEOU SUBCUTANEO SLY ONCE A SLY ONCE A USLY ONCE MONTH MONTH A MONTH enoxaparin enoxaparin No enoxaparin [facility] 30 mg/0.3 30 mg/0.3 30 mg/0.3 Medical mL mL mL subcutaneou subcutaneou subcutaneo s syringe s syringe us syringe escitalopra escitalopra No escitalopr [facility] m 20 mg m 20 mg am 20 mg Medic al tablet TAKE tablet TAKE tablet 1 TABLET BY 1 TABLET BY TAKE 1 MOUTH ONCE MOUTH ONCE TABLET BY A DAY A DAY MOUTH ONCE A DAY eszopiclone eszopiclone No eszopiclon [facility] 3 mg tablet 3 mg tablet e 3 mg Medical TAKE 1 TAKE 1 tablet TABLET BY TABLET BY TAKE 1 MOUTH AT MOUTH AT TABLET BY BEDTIME BEDTIME MOUTH AT BEDTIME famotidine famotidine No famotidine [facility] 40 mg 40 mg 40 mg Medical tablet tablet tablet Fluad Quad Fluad Quad No Fluad Quad [facility] (6 (6 ( Medical 5yr up)(PF) 5yr up)(PF) 65yr 60 mcg (15 60 mcg (15 up)(PF) 60 mcg x mcg x mcg (15 4)/0.5mL IM 4)/0.5mL IM mcg x syringe syringe 4)/0.5mL IM syringe fluconazole fluconazole No fluconazol [facility] 150 mg 150 mg e 150 mg Medical tablet TAKE tablet TAKE tablet 1 TABLET BY 1 TABLET BY TAKE 1 MOUTH NOW MOUTH NOW TABLET BY MAY REPEAT MAY REPEAT MOUTH NOW IN 3 DAYS IN 3 DAYS MAY REPEAT IN 3 DAYS Fluzone Fluzone No Fluzone [facility] High-Dose High-Dose High-Dose Medical [id number] (PF) 180 (PF) 180 (PF) 180 mcg/0.5 mL mcg/0.5 mL mcg/0.5 mL intramuscul intramuscul intramuscu ar syringe ar syringe lar syringe Fluzone Fluzone No Fluzone [facility] High-Dose High-Dose High-Dose Medical [id number] (PF) 180 (PF) 180 (PF) 180 mcg/0.5 mL mcg/0.5 mL mcg/0.5 mL intramuscul intramuscul intramuscu ar syringe ar syringe lar syringe Fluzone Fluzone No Fluzone [facility] High-Dose High-Dose High-Dose Medical (PF) 180 (PF) 180 (PF) 180 mcg/0.5 mL mcg/0.5 mL mcg/0.5 mL intramuscul intramuscul intramuscu ar syringe ar syringe lar TO BE TO BE syringe TO ADMINISTERE ADMINISTERE BE D BY D BY ADMINISTER PHARMACIST PHARMACIST ED BY FOR FOR PHARMACIST IMMUNIZATIO IMMUNIZATIO FOR N N IMMUNIZATI ON amoxicillin amoxicillin No amoxicilli [facility] 500 mg 500 mg n 500 mg Medical capsule capsule capsule TAKE 4 TAKE 4 TAKE 4 CAPSULES BY CAPSULES BY CAPSULES MOUTH 1 MOUTH 1 BY MOUTH 1 HOUR PRIOR HOUR PRIOR HOUR PRIOR TO APPT TO APPT TO APPT furosemide furosemide No furosemide [facility] 20 mg 20 mg 20 mg Medical tablet tablet tablet furosemide furosemide No furosemide [facility] 40 mg 40 mg 40 mg Medical tablet TK 1 tablet TK 1 tablet TK T PO QAM. T PO QAM. 1 T PO QAM. gabapentin gabapentin No gabapentin [facility] 100 mg 100 mg 100 mg Medical capsule capsule capsule TAKE ONE TAKE ONE TAKE ONE CAPSULE BY CAPSULE BY CAPSULE BY MOUTH 3 MOUTH 3 MOUTH 3 TIMES A DAY TIMES A DAY TIMES A STOP LYRICA STOP LYRICA DAY STOP LYRICA gabapentin gabapentin No gabapentin [facility] 300 mg 300 mg 300 mg Medical capsule capsule capsule hydrochloro hydrochloro No hydrochlor [facility] thiazide 25 thiazide 25 othiazide Medical mg tablet mg tablet 25 mg tablet hydrocodone hydrocodone No hydrocodon [facility] 10 10 e 10 Medical mg-acetamin mg-acetamin mg-acetami ophen 325 ophen 325 nophen 325 mg tablet mg tablet mg tablet TK 1 T PO TK 1 T PO TK 1 T PO TID TID TID hydrocodone hydrocodone No hydrocodon [facility] 5 5 e 5 Medical mg-acetamin mg-acetamin mg-acetami ophen 325 ophen 325 nophen 325 mg tablet mg tablet mg tablet TAKE 1 TAKE 1 TAKE 1 TABLET BY TABLET BY TABLET BY MOUTH 4 MOUTH 4 MOUTH 4 TIMES DAILY TIMES DAILY TIMES NEEDED NEEDED DAILY FOR PAIN FOR PAIN NEEDED FOR MAY MAKE MAY MAKE PAIN MAY DROWSY DROWSY MAKE DROWSY hydrocodone hydrocodone No hydrocodon [facility] 7.5 7.5 e 7.5 Medical mg-acetamin mg-acetamin mg-acetami ophen 325 ophen 325 nophen 325 mg tablet mg tablet mg tablet TK 1 T PO TK 1 T PO TK 1 T PO QID PRN. QID PRN. QID PRN. hyoscyamine hyoscyamine No hyoscyamin [facility] 0.125 mg 0.125 mg e 0.125 mg M edical sublingual sublingual sublingual tablet tablet tablet hyoscyamine hyoscyamine No hyoscyamin [facility] sulfate sulfate e sulfate Medi kasey 0.125 mg 0.125 mg 0.125 mg tablet TAKE tablet TAKE tablet 1 TABLET BY 1 TABLET BY TAKE 1 MOUTH 3 MOUTH 3 TABLET BY TIMES A DAY TIMES A DAY MOUTH 3 TIMES A DAY amoxicillin amoxicillin No amoxicilli [facility] [id number] [phone] Medical mg-potassiu mg-potassiu mg-potassi m m um clavulanate clavulanate clavulanat 125 mg 125 mg e 125 mg tablet TAKE tablet TAKE tablet 1 TABLET BY 1 TABLET BY TAKE 1 MOUTH TWICE MOUTH TWICE TABLET BY A DAY WITH A DAY WITH MOUTH FOOD FOOD TWICE A DAY WITH FOOD Jardiance Jardiance No Jardiance [facility] 10 mg 10 mg 10 mg Medical tablet TAKE tablet TAKE tablet 1 TABLET BY 1 TABLET BY TAKE 1 MOUTH EVERY MOUTH EVERY TABLET BY MORNING MORNING MOUTH EVERY MORNING Lagevrio Lagevrio No Lagevrio Aby via 200 mg 200 mg 200 mg Medical capsule capsule capsule (EUA) TAKE (EUA) TAKE (EUA) TAKE 4 CAPSULE 4 CAPSULE 4 CAPSULE BY MOUTH BY MOUTH BY MOUTH EVERY 12 EVERY 12 EVERY 12 HOURS FOR 5 HOURS FOR 5 HOURS FOR DAYS DAYS 5 DAYS levocetiriz levocetiriz No levocetiri [facility] ine 5 mg ine 5 mg zine 5 mg Me dical tablet TAKE tablet TAKE tablet 2 TABLETS 2 TABLETS TAKE 2 BY MOUTH BY MOUTH TABLETS BY EVERY DAY EVERY DAY MOUTH EVERY DAY levofloxaci levofloxaci No levofloxac [facility] n 500 mg n 500 mg in 500 mg Me dical tablet TAKE tablet TAKE tablet 1 TABLET BY 1 TABLET BY TAKE 1 MOUTH EVERY MOUTH EVERY TABLET BY DAY DAY MOUTH EVERY DAY lidocaine 5 lidocaine 5 No lidocaine [facility] % topical % topical 5 % Medic al patch patch topical patch losartan losartan No losartan Aby via 100 mg 100 mg 100 mg Medical tablet tablet tablet losartan 25 losartan 25 No losartan [facility] mg tablet mg tablet 25 mg Medi kasey TAKE 1 TAKE 1 tablet TABLET BY TABLET BY TAKE 1 MOUTH EVERY MOUTH EVERY TABLET BY DAY DAY MOUTH EVERY DAY losartan 50 losartan 50 No losartan [facility] mg tablet mg tablet 50 mg Medi kasey tablet metformin metformin No metformin [facility] 1,000 mg 1,000 mg 1,000 mg Med ical tablet TAKE tablet TAKE tablet 1 TABLET BY 1 TABLET BY TAKE 1 MOUTH 2 MOUTH 2 TABLET BY TIMES A DAY TIMES A DAY MOUTH 2 TIMES A DAY metformin metformin No metformin [facility] 500 mg 500 mg 500 mg Medical tablet TK 1 tablet TK 1 tablet TK T PO BID Q T PO BID Q 1 T PO BID 12 H 12 H Q 12 H aripiprazol aripiprazol No aripiprazo [facility] e 2 mg e 2 mg le 2 mg Medical tablet tablet tablet methylpredn methylpredn No methylpred [facility] isolone 4 isolone 4 nisolone 4 Medical mg tablets mg tablets mg tablets in a dose in a dose in a dose pack TAKE pack TAKE pack TAKE DIRECTED DIRECTED DIRECTED metoclopram metoclopram No metoclopra [facility] dagmar 10 mg dagmar 10 mg mide 10 mg Medical tablet TAKE tablet TAKE tablet 1 TABLET BY 1 TABLET BY TAKE 1 MOUTH 4 MOUTH 4 TABLET BY TIMES A DAY TIMES A DAY MOUTH 4 TIMES A DAY metronidazo metronidazo No metronidaz [facility] le 500 mg le 500 mg ole 500 mg Medical tablet TAKE tablet TAKE tablet 1 TABLET BY 1 TABLET BY TAKE 1 MOUTH 3 MOUTH 3 TABLET BY TIMES A DAY TIMES A DAY MOUTH 3 TIMES A DAY mirtazapine mirtazapine No mirtazapin [facility] 7.5 mg 7.5 mg e 7.5 mg Medical tablet tablet tablet modafinil modafinil No modafinil [facility] 100 mg 100 mg 100 mg Medical tablet TAKE tablet TAKE tablet 1 TABLET BY 1 TABLET BY TAKE 1 MOUTH ONCE MOUTH ONCE TABLET BY A DAY (IN A DAY (IN MOUTH ONCE THE THE A DAY (IN MORNING) MORNING) THE MORNING) modafinil modafinil No modafinil [facility] 200 mg 200 mg 200 mg Medical tablet TAKE tablet TAKE tablet 1 TABLET BY 1 TABLET BY TAKE 1 MOUTH EVERY MOUTH EVERY TABLET BY MORNING MORNING MOUTH EVERY MORNING MoviPrep MoviPrep No MoviPrep Aby via 100 100 100 Medical gram-7.5 gram-7.5 gram-7.5 gram-2.691 gram-2.691 gram-2.691 gram oral gram oral gram oral powder powder powder packet packet packet mupirocin 2 mupirocin 2 No mupirocin [facility] % topical % topical 2 % Medic al ointment ointment topical APPLY TO APPLY TO ointment AFFECTED AFFECTED APPLY TO AREA 3 AREA 3 AFFECTED TIMES A DAY TIMES A DAY AREA 3 TOPICALLY TOPICALLY TIMES A DAY TOPICALLY mycophenola mycophenola No mycophenol [facility] te mofetil te mofetil ate Med ical 500 mg 500 mg mofetil tablet tablet 500 mg tablet nifedipine nifedipine No nifedipine [facility] ER 30 mg ER 30 mg ER 30 mg Med ical tablet,exte tablet,exte tablet,ext nded nded ended release release release azathioprin azathioprin No azathiopri [facility] e 50 mg e 50 mg ne 50 mg Medic al tablet TAKE tablet TAKE tablet 3 TABLETS 3 TABLETS TAKE 3 BY MOUTH BY MOUTH TABLETS BY EVERY DAY EVERY DAY MOUTH EVERY DAY nitrofurant nitrofurant No nitrofuran [facility] oin oin toin Medical monohydrate monohydrate monohydrat /macrocryst /macrocryst e/macrocry als 100 mg als 100 mg stals 100 capsule capsule mg capsule nortriptyli nortriptyli No nortriptyl [facility] ne 10 mg ne 10 mg ine 10 mg Me dical capsule capsule capsule TAKE 3 TAKE 3 TAKE 3 CAPSULES BY CAPSULES BY CAPSULES MOUTH AT MOUTH AT BY MOUTH BEDTIME BEDTIME AT BEDTIME nystatin nystatin No nystatin [facility] via 100,000 100,000 100,000 Medica l unit/mL unit/mL unit/mL oral oral oral suspension suspension suspension 2 ML, SWISH 2 ML, SWISH 2 ML, AND SWALLOW AND SWALLOW SWISH AND EVERY SIX EVERY SIX SWALLOW HOURS. HOURS. EVERY SIX HOURS. omeprazole omeprazole No omeprazole [facility] 40 mg 40 mg 40 mg Medical capsule,del capsule,del capsule,de ayed ayed layed release release release TAKE ONE TAKE ONE TAKE ONE CAPSULE BY CAPSULE BY CAPSULE BY MOUTH EVERY MOUTH EVERY MOUTH DAY DAY EVERY DAY ondansetron ondansetron No ondansetro [facility] 4 mg 4 mg n 4 mg Medical disintegrat disintegrat disintegra ing tablet ing tablet ting tablet ondansetron ondansetron No ondansetro [facility] HCl 4 mg HCl 4 mg n HCl 4 mg M edical tablet TAKE tablet TAKE tablet 1 TABLET BY 1 TABLET BY TAKE 1 MOUTH EVERY MOUTH EVERY TABLET BY 8 HOURS 8 HOURS MOUTH NEEDED FOR NEEDED FOR EVERY 8 NAUSEA AND NAUSEA AND HOURS VOMITING VOMITING NEEDED FOR NAUSEA AND VOMITING ondansetron ondansetron No ondansetro [facility] HCl 8 mg HCl 8 mg n HCl 8 mg M edical tablet tablet tablet OneTouch OneTouch No OneTouch Aby via [facility] Lancets 33 Lancets 33 Lancets 33 gauge TEST gauge TEST gauge TEST EVERY DAY EVERY DAY EVERY DAY OneTouch OneTouch No OneTouch Aby via Ultra Blue Ultra Blue Ultra Blue Medical Test Strip Test Strip Test Strip OneTouch OneTouch No OneTouch Aby via Ultra Test Ultra Test Ultra Test Medical strips TEST strips TEST strips EVERY DAY EVERY DAY TEST EVERY DAY azithromyci azithromyci No azithromyc [facility] n 250 mg n 250 mg in 250 mg Me dical tablet TAKE tablet TAKE tablet 2 TABLETS 2 TABLETS TAKE 2 BY MOUTH BY MOUTH TABLETS BY TODAY, THEN TODAY, THEN MOUTH TAKE 1 TAKE 1 TODAY, TABLET TABLET THEN TAKE DAILY FOR 4 DAILY FOR 4 1 TABLET DAYS DAYS DAILY FOR 4 DAYS OneTouch OneTouch No OneTouch Aby via Ultra2 Ultra2 Ultra2 Medical Meter Meter Meter OneTouch OneTouch No OneTouch Aby via Ultra2 Ultra2 Ultra2 Medical Meter kit Meter kit Meter kit USE USE USE DIRECTED DIRECTED DIRECTED OneTouch OneTouch No OneTouch Aby via UltraSoft UltraSoft UltraSoft Medical Lancets Lancets Lancets oxiconazole oxiconazole No oxiconazol [facility] 1 % topical 1 % topical e 1 % Medical cream cream topical cream pantoprazol pantoprazol No pantoprazo [facility] e 40 mg e 40 mg le 40 mg Medic al tablet,long tablet,long tablet,del yed release yed release ayed TAKE 1 TAKE 1 release TABLET BY TABLET BY TAKE 1 MOUTH EVERY MOUTH EVERY TABLET BY DAY DAY MOUTH EVERY DAY phentermine phentermine No phentermin [facility] 37.5 mg 37.5 mg e 37.5 mg Medi kasey tablet TAKE tablet TAKE tablet 1 TABLET BY 1 TABLET BY TAKE 1 MOUTH EVERY MOUTH EVERY TABLET BY DAY DAY MOUTH EVERY DAY potassium potassium No potassium [facility] chloride ER chloride ER chloride Medical 20 mEq 20 mEq ER 20 mEq tablet,exte tablet,exte tablet,ext nded nded ended release(par release(par release(pa t/cryst) t/cryst) rt/cryst) TAKE 1 TAKE 1 TAKE 1 TABLET BY TABLET BY TABLET BY MOUTH EVERY MOUTH EVERY MOUTH DAY DAY EVERY DAY prednisone prednisone No prednisone [facility] 10 mg 10 mg 10 mg Medical tablet tablet tablet Prevnar 13 Prevnar 13 No Prevnar 13 [facility] (PF) 0.5 mL (PF) 0.5 mL (PF) 0.5 Medical intramuscul intramuscul mL ar syringe ar syringe intramuscu TO BE TO BE lar ADMINISTERE ADMINISTERE syringe TO D BY D BY BE PHARMACIST PHARMACIST ADMINISTER FOR FOR ED BY IMMUNIZATIO IMMUNIZATIO PHARMACIST N N FOR IMMUNIZATI ON promethazin promethazin No promethazi [facility] e 25 mg e 25 mg ne 25 mg Medic al tablet TAKE tablet TAKE tablet 1 TABLET BY 1 TABLET BY TAKE 1 MOUTH EVERY MOUTH EVERY TABLET BY 6 HOURS 6 HOURS MOUTH NEEDED MAY NEEDED MAY EVERY 6 MAKE DROWSY MAKE DROWSY HOURS NEEDED MAY MAKE DROWSY Benlysta Benlysta No Benlysta Aby via 200 mg/mL 200 mg/mL 200 mg/mL Medical subcutaneou subcutaneou subcutaneo s s us auto-inject auto-inject auto-injec or inject 1 or inject 1 tor inject pen pen 1 pen subcutaneou subcutaneou subcutaneo sly one sly one usly one time a week time a week time a week promethazin promethazin No promethazi [facility] e-DM 6.25 e-DM 6.25 ne-DM 6.25 Medical mg-15 mg/5 mg-15 mg/5 mg-15 mg/5 mL oral mL oral mL oral syrup TAKE syrup TAKE syrup TAKE 1 TEASPOON 1 TEASPOON 1 TEASPOON BY MOUTH BY MOUTH BY MOUTH EVERY 6 EVERY 6 EVERY 6 HOURS HOURS HOURS NEEDED FOR NEEDED FOR NEEDED FOR COUGH COUGH COUGH Q-Tussin DM Q-Tussin DM No Q-Tussin [facility] 10 mg-100 10 mg-100 DM 10 Medi kasey mg/5 mL mg/5 mL mg-100 oral syrup oral syrup mg/5 mL TAKE 1 - 2 TAKE 1 - 2 oral syrup TEASPOON BY TEASPOON BY TAKE 1 - 2 MOUTH EVERY MOUTH EVERY TEASPOON 4 HOURS 4 HOURS BY MOUTH NEEDED NEEDED EVERY 4 HOURS NEEDED ranitidine ranitidine No ranitidine [facility] 150 mg 150 mg 150 mg Medical tablet TAKE tablet TAKE tablet 2 TABLETS 2 TABLETS TAKE 2 BY MOUTH BY MOUTH TABLETS BY EVERY DAY EVERY DAY MOUTH EVERY DAY ranitidine ranitidine No ranitidine [facility] 300 mg 300 mg 300 mg Medical tablet TAKE tablet TAKE tablet 1 TABLET BY 1 TABLET BY TAKE 1 MOUTH EVERY MOUTH EVERY TABLET BY MORNING MORNING MOUTH EVERY MORNING Remicade Remicade No Remicade [facility]by via 100 mg 100 mg 100 mg Medical intravenous intravenous intravenou solution solution s solution Inject by Inject by Inject by intravenous intravenous intravenou route. route. s route. Restasis Restasis No Restasis Aby via 0.05 % eye 0.05 % eye 0.05 % eye Medical drops in a drops in a drops in a dropperette dropperette dropperett INSTILL 1 INSTILL 1 e INSTILL DROP INTO DROP INTO 1 DROP BOTH EYES BOTH EYES INTO BOTH TWICE A DAY TWICE A DAY EYES TWICE A DAY sulfamethox sulfamethox No sulfametho [facility] azole 400 azole 400 xazole 400 Medical mg-trimetho mg-trimetho mg-trimeth prim 80 mg prim 80 mg oprim 80 tablet TAKE tablet TAKE mg tablet 2 TABLETS 2 TABLETS TAKE 2 BY ORAL BY ORAL TABLETS BY ROUTE EVERY ROUTE EVERY ORAL ROUTE 12 HOURS 12 HOURS EVERY 12 HOURS sumatriptan sumatriptan No sumatripta [facility] 100 mg 100 mg n 100 mg Medical tablet ONE tablet ONE tablet ONE TAB. AT TAB. AT TAB. AT START OF START OF START OF HEADACHE HEADACHE HEADACHE MAY REPEAT MAY REPEAT MAY REPEAT IN 2 HRS. IN 2 HRS. IN 2 HRS. PRN MAX. PRN MAX. PRN MAX. 2/24HRS. 2/24HRS. 2/24HRS. 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 terconazole terconazole No terconazol [facility] 80 mg 80 mg e 80 mg Medical vaginal vaginal vaginal suppository suppository suppositor INSERT INSERT y INSERT VAGINALLY 1 VAGINALLY 1 VAGINALLY APPLICATORF APPLICATORF 1 UL AT NIGHT UL AT NIGHT APPLICATOR DIRECTED DIRECTED FUL AT NIGHT DIRECTED tizanidine tizanidine No tizanidine [facility] 4 mg tablet 4 mg tablet 4 mg M edical tablet tramadol tramadol No tramadol Aby via 37.5 37.5 37.5 Medical mg-acetamin mg-acetamin mg-acetami ophen 325 ophen 325 nophen 325 mg tablet mg tablet mg tablet TAKE 1 TAKE 1 TAKE 1 TABLET BY TABLET BY TABLET BY MOUTH EVERY MOUTH EVERY MOUTH 4 TO 6 4 TO 6 EVERY 4 TO HOURS HOURS 6 HOURS NEEDED FOR NEEDED FOR NEEDED FOR PAIN PAIN PAIN tramadol 50 tramadol 50 No tramadol [facility] mg tablet mg tablet 50 mg Medi kasey TAKE 1 TAKE 1 tablet TABLET BY TABLET BY TAKE 1 MOUTH TWICE MOUTH TWICE TABLET BY A DAY A DAY MOUTH NEEDED FOR NEEDED FOR TWICE A PAIN PAIN DAY NEEDED FOR PAIN trazodone trazodone No trazodone [facility] 100 mg 100 mg 100 mg Medical tablet tablet tablet trazodone trazodone No trazodone [facility] 50 mg 50 mg 50 mg Medical tablet tablet tablet Trintellix Trintellix No Trintellix [facility] 10 mg 10 mg 10 mg Medical tablet tablet tablet zolpidem 10 zolpidem 10 No zolpidem [facility] mg tablet mg tablet 10 mg Medi kasey TK 1 T PO TK 1 T PO tablet TK QD QD 1 T PO QD zolpidem ER zolpidem ER No zolpidem [facility] 12.5 mg 12.5 mg ER 12.5 mg Med ical tablet,exte tablet,exte tablet,ext nded nded ended release,mul release,mul release,mu tiphase tiphase ltiphase TAKE 1 TAKE 1 TAKE 1 TABLET BY TABLET BY TABLET BY MOUTH AT MOUTH AT MOUTH AT BEDTIME FOR BEDTIME FOR BEDTIME INSOMNIA INSOMNIA FOR INSOMNIA benzonatate benzonatate No benzonatat [facility] 100 mg 100 mg e 100 mg Medical capsule capsule capsule Boostrix Boostrix No Boostrix Aby via Tdap 2.5 Lf Tdap 2.5 Lf Tdap 2.5 Medical unit-8 unit-8 Lf unit-8 mcg-5 mcg-5 mcg-5 Lf/0.5 mL Lf/0.5 mL Lf/0.5 mL intramuscul intramuscul intramuscu ar syringe ar syringe lar syringe Botox 100 Botox 100 No Botox 100 [facility] unit unit unit Medical injection injection injection Botox 200 Botox 200 No Botox 200 [facility] unit unit unit Medical injection injection injection bromphenira bromphenira No bromphenir [facility] mine-pseudo mine-pseudo amine-pseu Medical ephedrine-D ephedrine-D doephedrin M 2 mg-30 M 2 mg-30 e-DM 2 mg-10 mg/5 mg-10 mg/5 mg-30 mL oral mL oral mg-10 mg/5 syrup syrup mL oral syrup bupropion bupropion No bupropion [facility] HCl XL 150 HCl XL 150 HCl XL 150 Medical mg 24 hr mg 24 hr mg 24 hr tablet, tablet, tablet, extended extended extended release release release bupropion bupropion No bupropion [facility] HCl XL 300 HCl XL 300 HCl XL 300 Medical mg 24 hr mg 24 hr mg 24 hr tablet, tablet, tablet, extended extended extended release release release cefdinir cefdinir No cefdinir Aby via 300 mg 300 mg 300 mg Medical capsule capsule capsule TAKE 2 TAKE 2 TAKE 2 CAPSULES BY CAPSULES BY CAPSULES MOUTH AT MOUTH AT BY MOUTH THE SAME THE SAME AT THE DAILY DAILY DAILY DAILY SAME DAILY DAILY cefuroxime cefuroxime No cefuroxime [facility] axetil 250 axetil 250 axetil 250 Medical mg tablet mg tablet mg tablet TAKE 1 TAKE 1 TAKE 1 TABLET BY TABLET BY TABLET BY MOUTH TWICE MOUTH TWICE MOUTH A DAY A DAY TWICE A DAY cephalexin cephalexin No cephalexin [facility] 500 mg 500 mg 500 mg Medical capsule capsule capsule TAKE ONE TAKE ONE TAKE ONE CAPSULE BY CAPSULE BY CAPSULE BY MOUTH EVERY MOUTH EVERY MOUTH 12 HOURS 12 HOURS EVERY 12 FOR 10 DAYS FOR 10 DAYS HOURS FOR 10 DAYS cevimeline cevimeline No cevimeline [facility] 30 mg 30 mg 30 mg Medical capsule capsule capsule ciprofloxac ciprofloxac No ciprofloxa [facility] in 250 mg in 250 mg justina 250 mg Medical tablet tablet tablet ciprofloxac ciprofloxac No ciprofloxa [facility] in 500 mg in 500 mg justina 500 mg Medical tablet TAKE tablet TAKE tablet 1 TABLET BY 1 TABLET BY TAKE 1 MOUTH EVERY MOUTH EVERY TABLET BY 12 HOURS 12 HOURS MOUTH EVERY 12 HOURS clonidine clonidine No clonidine [facility] HCl 0.1 mg HCl 0.1 mg HCl 0.1 mg Medical tablet tablet tablet colestipol colestipol No colestipol [facility] 1 gram 1 gram 1 gram Medical tablet tablet tablet Denta 5000 Denta 5000 No Denta 5000 [facility] Plus 1.1 % Plus 1.1 % Plus 1.1 % Medical cream USE cream USE cream USE AT AT AT BEDTIME.BRU BEDTIME.BRU BEDTIME.BR SH FOR 2 SH FOR 2 USH FOR 2 MINS, DO MINS, DO MINS, DO NOT RINSE NOT RINSE NOT RINSE AFTERWARDS. AFTERWARDS. AFTERWARDS . DentaGel DentaGel No DentaGel Aby via 1.1 % USE 1.1 % USE 1.1 % USE Medical AT BEDTIME. AT BEDTIME. AT DO NOT EAT DO NOT EAT BEDTIME. OR DRINK OR DRINK DO NOT EAT AFTER USE AFTER USE OR DRINK AFTER USE dexamethaso dexamethaso No dexamethas [facility] ne 2 mg ne 2 mg one 2 mg Medic al tablet TAKE tablet TAKE tablet 1 TABLET BY 1 TABLET BY TAKE 1 MOUTH TWICE MOUTH TWICE TABLET BY A DAY A DAY MOUTH TWICE A DAY dextroamphe dextroamphe No dextroamph [facility] tamine-amph tamine-amph etamine-am Medical etamine 10 etamine 10 phetamine mg tablet mg tablet 10 mg TAKE 1 TAKE 1 tablet TABLET BY TABLET BY TAKE 1 MOUTH 2 MOUTH 2 TABLET BY TIMES DAILY TIMES DAILY MOUTH 2 NEEDED NEEDED TIMES DAILY NEEDED dextroamphe dextroamphe No dextroamph [facility] tamine-amph tamine-amph etamine-am Medical etamine 15 etamine 15 phetamine mg tablet mg tablet 15 mg tablet dextroamphe dextroamphe No dextroamph [facility] tamine-amph tamine-amph etamine-am Medical etamine 7.5 etamine 7.5 phetamine mg tablet mg tablet 7.5 mg tablet diphenoxyla diphenoxyla No diphenoxyl [facility] te-atropine te-atropine ate-atropi Medical 2.5 2.5 ne 2.5 mg-0.025 mg mg-0.025 mg mg-0.025 tablet tablet mg tablet doxepin 25 doxepin 25 No doxepin 25 [facility] mg capsule mg capsule mg capsule Medical Emgality Emgality No Emgality Aby via 120 mg/mL 120 mg/mL 120 mg/mL Medical subcutaneou subcutaneou subcutaneo s syringe s syringe us syringe Emgality Emgality No Emgality Aby via Pen 120 Pen 120 Pen 120 Medica l mg/mL mg/mL mg/mL subcutaneou subcutaneou subcutaneo s pen s pen us pen injector injector injector INJECT INJECT INJECT SUBCUTANEOU SUBCUTANEOU SUBCUTANEO SLY ONCE A SLY ONCE A USLY ONCE MONTH MONTH A MONTH enoxaparin enoxaparin No enoxaparin [facility] 30 mg/0.3 30 mg/0.3 30 mg/0.3 Medical mL mL mL subcutaneou subcutaneou subcutaneo s syringe s syringe us syringe escitalopra escitalopra No escitalopr [facility] m 20 mg m 20 mg am 20 mg Medic al tablet TAKE tablet TAKE tablet 1 TABLET BY 1 TABLET BY TAKE 1 MOUTH ONCE MOUTH ONCE TABLET BY A DAY A DAY MOUTH ONCE A DAY eszopiclone eszopiclone No eszopiclon [facility] 3 mg tablet 3 mg tablet e 3 mg Medical TAKE 1 TAKE 1 tablet TABLET BY TABLET BY TAKE 1 MOUTH AT MOUTH AT TABLET BY BEDTIME BEDTIME MOUTH AT BEDTIME famotidine famotidine No famotidine [facility] 40 mg 40 mg 40 mg Medical tablet tablet tablet Fluad Quad Fluad Quad No Fluad Quad [facility] (6 (6 ( Medical 5yr up)(PF) 5yr up)(PF) 65yr 60 mcg (15 60 mcg (15 up)(PF) 60 mcg x mcg x mcg (15 4)/0.5mL IM 4)/0.5mL IM mcg x syringe syringe 4)/0.5mL IM syringe fluconazole fluconazole No fluconazol [facility] 150 mg 150 mg e 150 mg Medical tablet TAKE tablet TAKE tablet 1 TABLET BY 1 TABLET BY TAKE 1 MOUTH NOW MOUTH NOW TABLET BY MAY REPEAT MAY REPEAT MOUTH NOW IN 3 DAYS IN 3 DAYS MAY REPEAT IN 3 DAYS Fluzone Fluzone No Fluzone [facility] High-Dose High-Dose High-Dose Medical [id number] (PF) 180 (PF) 180 (PF) 180 mcg/0.5 mL mcg/0.5 mL mcg/0.5 mL intramuscul intramuscul intramuscu ar syringe ar syringe lar syringe Fluzone Fluzone No Fluzone [facility] High-Dose High-Dose High-Dose Medical 2017-2018 (PF) 180 (PF) 180 (PF) 180 mcg/0.5 mL mcg/0.5 mL mcg/0.5 mL intramuscul intramuscul intramuscu ar syringe ar syringe lar syringe Fluzone Fluzone No Fluzone [facility] High-Dose High-Dose High-Dose Medical (PF) 180 (PF) 180 (PF) 180 mcg/0.5 mL mcg/0.5 mL mcg/0.5 mL intramuscul intramuscul intramuscu ar syringe ar syringe lar TO BE TO BE syringe TO ADMINISTERE ADMINISTERE BE D BY D BY ADMINISTER PHARMACIST PHARMACIST ED BY FOR FOR PHARMACIST IMMUNIZATIO IMMUNIZATIO FOR N N IMMUNIZATI ON furosemide furosemide No furosemide [facility] 20 mg 20 mg 20 mg Medical tablet tablet tablet furosemide furosemide No furosemide [facility] 40 mg 40 mg 40 mg Medical tablet TK 1 tablet TK 1 tablet TK T PO QAM. T PO QAM. 1 T PO QAM. gabapentin gabapentin No gabapentin [facility] 100 mg 100 mg 100 mg Medical capsule capsule capsule TAKE ONE TAKE ONE TAKE ONE CAPSULE BY CAPSULE BY CAPSULE BY MOUTH 3 MOUTH 3 MOUTH 3 TIMES A DAY TIMES A DAY TIMES A STOP LYRICA STOP LYRICA DAY STOP LYRICA gabapentin gabapentin No gabapentin [facility] 300 mg 300 mg 300 mg Medical capsule capsule capsule hydrochloro hydrochloro No hydrochlor [facility] thiazide 25 thiazide 25 othiazide Medical mg tablet mg tablet 25 mg tablet hydrocodone hydrocodone No hydrocodon [facility] 10 10 e 10 Medical mg-acetamin mg-acetamin mg-acetami ophen 325 ophen 325 nophen 325 mg tablet mg tablet mg tablet TK 1 T PO TK 1 T PO TK 1 T PO TID TID TID hydrocodone hydrocodone No hydrocodon [facility] 5 5 e 5 Medical mg-acetamin mg-acetamin mg-acetami ophen 325 ophen 325 nophen 325 mg tablet mg tablet mg tablet TAKE 1 TAKE 1 TAKE 1 TABLET BY TABLET BY TABLET BY MOUTH 4 MOUTH 4 MOUTH 4 TIMES DAILY TIMES DAILY TIMES NEEDED NEEDED DAILY FOR PAIN FOR PAIN NEEDED FOR MAY MAKE MAY MAKE PAIN MAY DROWSY DROWSY MAKE DROWSY hydrocodone hydrocodone No hydrocodon [facility] 7.5 7.5 e 7.5 Medical mg-acetamin mg-acetamin mg-acetami ophen 325 ophen 325 nophen 325 mg tablet mg tablet mg tablet TK 1 T PO TK 1 T PO TK 1 T PO QID PRN. QID PRN. QID PRN. hyoscyamine hyoscyamine No hyoscyamin [facility] 0.125 mg 0.125 mg e 0.125 mg M edical sublingual sublingual sublingual tablet tablet tablet hyoscyamine hyoscyamine No hyoscyamin [facility] sulfate sulfate e sulfate Medi kasey 0.125 mg 0.125 mg 0.125 mg tablet TAKE tablet TAKE tablet 1 TABLET BY 1 TABLET BY TAKE 1 MOUTH 3 MOUTH 3 TABLET BY TIMES A DAY TIMES A DAY MOUTH 3 TIMES A DAY Jardiance Jardiance No Jardiance [facility] 10 mg 10 mg 10 mg Medical tablet TAKE tablet TAKE tablet 1 TABLET BY 1 TABLET BY TAKE 1 MOUTH EVERY MOUTH EVERY TABLET BY MORNING MORNING MOUTH EVERY MORNING levocetiriz levocetiriz No levocetiri [facility] ine 5 mg ine 5 mg zine 5 mg Me dical tablet TAKE tablet TAKE tablet 2 TABLETS 2 TABLETS TAKE 2 BY MOUTH BY MOUTH TABLETS BY EVERY DAY EVERY DAY MOUTH EVERY DAY levofloxaci levofloxaci No levofloxac [facility] n 500 mg n 500 mg in 500 mg Me dical tablet TAKE tablet TAKE tablet 1 TABLET BY 1 TABLET BY TAKE 1 MOUTH EVERY MOUTH EVERY TABLET BY DAY DAY MOUTH EVERY DAY lidocaine 5 lidocaine 5 No lidocaine [facility] % topical % topical 5 % Medic al patch patch topical patch losartan losartan No losartan Aby via 100 mg 100 mg 100 mg Medical tablet tablet tablet losartan 25 losartan 25 No losartan [facility] mg tablet mg tablet 25 mg Medi kasey TAKE 1 TAKE 1 tablet TABLET BY TABLET BY TAKE 1 MOUTH EVERY MOUTH EVERY TABLET BY DAY DAY MOUTH EVERY DAY losartan 50 losartan 50 No losartan [facility] mg tablet mg tablet 50 mg Medi kasey tablet metformin metformin No metformin [facility] 1,000 mg 1,000 mg 1,000 mg Med ical tablet TAKE tablet TAKE tablet 1 TABLET BY 1 TABLET BY TAKE 1 MOUTH 2 MOUTH 2 TABLET BY TIMES A DAY TIMES A DAY MOUTH 2 TIMES A DAY metformin metformin No metformin [facility] 500 mg 500 mg 500 mg Medical tablet TK 1 tablet TK 1 tablet TK T PO BID Q T PO BID Q 1 T PO BID 12 H 12 H Q 12 H methylpredn methylpredn No methylpred [facility] isolone 4 isolone 4 nisolone 4 Medical mg tablets mg tablets mg tablets in a dose in a dose in a dose pack TAKE pack TAKE pack TAKE DIRECTED DIRECTED DIRECTED metoclopram metoclopram No metoclopra [facility] dagmar 10 mg dagmar 10 mg mide 10 mg Medical tablet TAKE tablet TAKE tablet 1 TABLET BY 1 TABLET BY TAKE 1 MOUTH 4 MOUTH 4 TABLET BY TIMES A DAY TIMES A DAY MOUTH 4 TIMES A DAY metronidazo metronidazo No metronidaz [facility] le 500 mg le 500 mg ole 500 mg Medical tablet TAKE tablet TAKE tablet 1 TABLET BY 1 TABLET BY TAKE 1 MOUTH 3 MOUTH 3 TABLET BY TIMES A DAY TIMES A DAY MOUTH 3 TIMES A DAY mirtazapine mirtazapine No mirtazapin [facility] 7.5 mg 7.5 mg e 7.5 mg Medical tablet tablet tablet modafinil modafinil No modafinil [facility] 100 mg 100 mg 100 mg Medical tablet TAKE tablet TAKE tablet 1 TABLET BY 1 TABLET BY TAKE 1 MOUTH ONCE MOUTH ONCE TABLET BY A DAY (IN A DAY (IN MOUTH ONCE THE THE A DAY (IN MORNING) MORNING) THE MORNING) modafinil modafinil No modafinil [facility] 200 mg 200 mg 200 mg Medical tablet TAKE tablet TAKE tablet 1 TABLET BY 1 TABLET BY TAKE 1 MOUTH EVERY MOUTH EVERY TABLET BY MORNING MORNING MOUTH EVERY MORNING MoviPrep MoviPrep No MoviPrep Aby via 100 100 100 Medical gram-7.5 gram-7.5 gram-7.5 gram-2.691 gram-2.691 gram-2.691 gram oral gram oral gram oral powder powder powder packet packet packet mupirocin 2 mupirocin 2 No mupirocin [facility] % topical % topical 2 % Medic al ointment ointment topical APPLY TO APPLY TO ointment AFFECTED AFFECTED APPLY TO AREA 3 AREA 3 AFFECTED TIMES A DAY TIMES A DAY AREA 3 TOPICALLY TOPICALLY TIMES A DAY TOPICALLY mycophenola mycophenola No mycophenol [facility] te mofetil te mofetil ate Med ical 500 mg 500 mg mofetil tablet tablet 500 mg tablet nifedipine nifedipine No nifedipine [facility] ER 30 mg ER 30 mg ER 30 mg Med ical tablet,exte tablet,exte tablet,ext nded nded ended release release release nitrofurant nitrofurant No nitrofuran [facility] oin oin toin Medical monohydrate monohydrate monohydrat /macrocryst /macrocryst e/macrocry als 100 mg als 100 mg stals 100 capsule capsule mg capsule nortriptyli nortriptyli No nortriptyl [facility] ne 10 mg ne 10 mg ine 10 mg Me dical capsule capsule capsule TAKE 3 TAKE 3 TAKE 3 CAPSULES BY CAPSULES BY CAPSULES MOUTH AT MOUTH AT BY MOUTH BEDTIME BEDTIME AT BEDTIME nystatin nystatin No nystatin Aby via 100,000 100,000 100,000 Medica l unit/mL unit/mL unit/mL oral oral oral suspension suspension suspension 2 ML, SWISH 2 ML, SWISH 2 ML, AND SWALLOW AND SWALLOW SWISH AND EVERY SIX EVERY SIX SWALLOW HOURS. HOURS. EVERY SIX HOURS. omeprazole omeprazole No omeprazole [facility] 40 mg 40 mg 40 mg Medical capsule,del capsule,del capsule,de ayed ayed layed release release release TAKE ONE TAKE ONE TAKE ONE CAPSULE BY CAPSULE BY CAPSULE BY MOUTH EVERY MOUTH EVERY MOUTH DAY DAY EVERY DAY ondansetron ondansetron No ondansetro [facility] 4 mg 4 mg n 4 mg Medical disintegrat disintegrat disintegra ing tablet ing tablet ting tablet ondansetron ondansetron No ondansetro [facility] HCl 4 mg HCl 4 mg n HCl 4 mg M edical tablet TAKE tablet TAKE tablet 1 TABLET BY 1 TABLET BY TAKE 1 MOUTH EVERY MOUTH EVERY TABLET BY 8 HOURS 8 HOURS MOUTH NEEDED FOR NEEDED FOR EVERY 8 NAUSEA AND NAUSEA AND HOURS VOMITING VOMITING NEEDED FOR NAUSEA AND VOMITING ondansetron ondansetron No ondansetro [facility] HCl 8 mg HCl 8 mg n HCl 8 mg M edical tablet tablet tablet OneTouch OneTouch No OneTouch Aby via [facility] Lancets 33 Lancets 33 Lancets 33 gauge TEST gauge TEST gauge TEST EVERY DAY EVERY DAY EVERY DAY OneTouch OneTouch No OneTouch Aby via Ultra Blue Ultra Blue Ultra Blue Medical Test Strip Test Strip Test Strip OneTouch OneTouch No OneTouch Aby via Ultra Test Ultra Test Ultra Test Medical strips TEST strips TEST strips EVERY DAY EVERY DAY TEST EVERY DAY OneTouch OneTouch No OneTouch Aby via Ultra2 Ultra2 Ultra2 Medical Meter Meter Meter OneTouch OneTouch No OneTouch Aby via Ultra2 Ultra2 Ultra2 Medical Meter kit Meter kit Meter kit USE USE USE DIRECTED DIRECTED DIRECTED OneTouch OneTouch No OneTouch Aby via UltraSoft UltraSoft UltraSoft Medical Lancets Lancets Lancets oxiconazole oxiconazole No oxiconazol [facility] 1 % topical 1 % topical e 1 % Medical cream cream topical cream pantoprazol pantoprazol No pantoprazo [facility] e 40 mg e 40 mg le 40 mg Medic al tablet,long tablet,long tablet,del yed release yed release ayed TAKE 1 TAKE 1 release TABLET BY TABLET BY TAKE 1 MOUTH EVERY MOUTH EVERY TABLET BY DAY DAY MOUTH EVERY DAY potassium potassium No potassium [facility] chloride ER chloride ER chloride Medical 20 mEq 20 mEq ER 20 mEq tablet,exte tablet,exte tablet,ext nded nded ended release(par release(par release(pa t/cryst) t/cryst) rt/cryst) TAKE 1 TAKE 1 TAKE 1 TABLET BY TABLET BY TABLET BY MOUTH EVERY MOUTH EVERY MOUTH DAY DAY EVERY DAY prednisone prednisone No prednisone [facility] 10 mg 10 mg 10 mg Medical tablet tablet tablet Ambien 5 mg Ambien 5 mg No Ambien 5 Ev tablet HX tablet HX mg tablet Orthope HX dic Sports Medicin e Prevnar 13 Prevnar 13 No Prevnar 13 [facility] (PF) 0.5 mL (PF) 0.5 mL (PF) 0.5 Medical intramuscul intramuscul mL ar syringe ar syringe intramuscu TO BE TO BE lar ADMINISTERE ADMINISTERE syringe TO D BY D BY BE PHARMACIST PHARMACIST ADMINISTER FOR FOR ED BY IMMUNIZATIO IMMUNIZATIO PHARMACIST N N FOR IMMUNIZATI ON promethazin promethazin No promethazi [facility] e 25 mg e 25 mg ne 25 mg Medic al tablet TAKE tablet TAKE tablet 1 TABLET BY 1 TABLET BY TAKE 1 MOUTH EVERY MOUTH EVERY TABLET BY 6 HOURS 6 HOURS MOUTH NEEDED MAY NEEDED MAY EVERY 6 MAKE DROWSY MAKE DROWSY HOURS NEEDED MAY MAKE DROWSY promethazin promethazin No promethazi [facility] e-DM 6.25 e-DM 6.25 ne-DM 6.25 Medical mg-15 mg/5 mg-15 mg/5 mg-15 mg/5 mL oral mL oral mL oral syrup TAKE syrup TAKE syrup TAKE 1 TEASPOON 1 TEASPOON 1 TEASPOON BY MOUTH BY MOUTH BY MOUTH EVERY 6 EVERY 6 EVERY 6 HOURS HOURS HOURS NEEDED FOR NEEDED FOR NEEDED FOR COUGH COUGH COUGH Q-Tussin DM Q-Tussin DM No Q-Tussin [facility] 10 mg-100 10 mg-100 DM 10 Medi kasey mg/5 mL mg/5 mL mg-100 oral syrup oral syrup mg/5 mL TAKE 1 - 2 TAKE 1 - 2 oral syrup TEASPOON BY TEASPOON BY TAKE 1 - 2 MOUTH EVERY MOUTH EVERY TEASPOON 4 HOURS 4 HOURS BY MOUTH NEEDED NEEDED EVERY 4 HOURS NEEDED ranitidine ranitidine No ranitidine [facility] 150 mg 150 mg 150 mg Medical tablet TAKE tablet TAKE tablet 2 TABLETS 2 TABLETS TAKE 2 BY MOUTH BY MOUTH TABLETS BY EVERY DAY EVERY DAY MOUTH EVERY DAY ranitidine ranitidine No ranitidine [facility] 300 mg 300 mg 300 mg Medical tablet TAKE tablet TAKE tablet 1 TABLET BY 1 TABLET BY TAKE 1 MOUTH EVERY MOUTH EVERY TABLET BY MORNING MORNING MOUTH EVERY MORNING Remicade Remicade No Remicade Aby via 100 mg 100 mg 100 mg Medical intravenous intravenous intravenou solution solution s solution Inject by Inject by Inject by intravenous intravenous intravenou route. route. s route. Restasis Restasis No Restasis Aby via 0.05 % eye 0.05 % eye 0.05 % eye Medical drops in a drops in a drops in a dropperette dropperette dropperett INSTILL 1 INSTILL 1 e INSTILL DROP INTO DROP INTO 1 DROP BOTH EYES BOTH EYES INTO BOTH TWICE A DAY TWICE A DAY EYES TWICE A DAY sulfamethox sulfamethox No sulfametho [facility] azole 400 azole 400 xazole 400 Medical mg-trimetho mg-trimetho mg-trimeth prim 80 mg prim 80 mg oprim 80 tablet TAKE tablet TAKE mg tablet 2 TABLETS 2 TABLETS TAKE 2 BY ORAL BY ORAL TABLETS BY ROUTE EVERY ROUTE EVERY ORAL ROUTE 12 HOURS 12 HOURS EVERY 12 HOURS sumatriptan sumatriptan No sumatripta [facility] 100 mg 100 mg n 100 mg Medical tablet ONE tablet ONE tablet ONE TAB. AT TAB. AT TAB. AT START OF START OF START OF HEADACHE HEADACHE HEADACHE MAY REPEAT MAY REPEAT MAY REPEAT IN 2 HRS. IN 2 HRS. IN 2 HRS. PRN MAX. PRN MAX. PRN MAX. 2/24HRS. 2/24HRS. 2/24HRS. Suprep Suprep No Suprep [facility] Bowel Prep Bowel Prep Bowel Prep Medical Kit 17.5 Kit 17.5 Kit 17.5 gram-3.13 gram-3.13 gram-3.13 gram-1.6 gram-1.6 gram-1.6 gram oral gram oral gram oral solution solution solution terconazole terconazole No terconazol [facility] 0.8 % 0.8 % e 0.8 % Medical vaginal vaginal vaginal cream USE cream USE cream USE DIRECTED DIRECTED DIRECTED terconazole terconazole No terconazol [facility] 80 mg 80 mg e 80 mg Medical vaginal vaginal vaginal suppository suppository suppositor INSERT INSERT y INSERT VAGINALLY 1 VAGINALLY 1 VAGINALLY APPLICATORF APPLICATORF 1 UL AT NIGHT UL AT NIGHT APPLICATOR DIRECTED DIRECTED FUL AT NIGHT DIRECTED tizanidine tizanidine No tizanidine [facility] 4 mg tablet 4 mg tablet 4 mg M edical tablet tramadol tramadol No tramadol Aby via 37.5 37.5 37.5 Medical mg-acetamin mg-acetamin mg-acetami ophen 325 ophen 325 nophen 325 mg tablet mg tablet mg tablet TAKE 1 TAKE 1 TAKE 1 TABLET BY TABLET BY TABLET BY MOUTH EVERY MOUTH EVERY MOUTH 4 TO 6 4 TO 6 EVERY 4 TO HOURS HOURS 6 HOURS NEEDED FOR NEEDED FOR NEEDED FOR PAIN PAIN PAIN tramadol 50 tramadol 50 No tramadol [facility] mg tablet mg tablet 50 mg Medi kasey TAKE 1 TAKE 1 tablet TABLET BY TABLET BY TAKE 1 MOUTH TWICE MOUTH TWICE TABLET BY A DAY A DAY MOUTH NEEDED FOR NEEDED FOR TWICE A PAIN PAIN DAY NEEDED FOR PAIN trazodone trazodone No trazodone [facility] 100 mg 100 mg 100 mg Medical tablet tablet tablet trazodone trazodone No trazodone [facility] 50 mg 50 mg 50 mg Medical tablet tablet tablet Trintellix Trintellix No Trintellix [facility] 10 mg 10 mg 10 mg Medical tablet tablet tablet zolpidem 10 zolpidem 10 No zolpidem [facility] mg tablet mg tablet 10 mg Medi kasey TK 1 T PO TK 1 T PO tablet TK QD QD 1 T PO QD bupropion bupropion No bupropion Ev HCl 100 mg HCl 100 mg HCl 100 mg Orth[facility] tablet HX tablet HX tablet HX dic Sports Medicin e zolpidem ER zolpidem ER No zolpidem [facility] 12.5 mg 12.5 mg ER 12.5 mg Med ical tablet,exte tablet,exte tablet,ext nded nded ended release,mul release,mul release,mu tiphase tiphase ltiphase TAKE 1 TAKE 1 TAKE 1 TABLET BY TABLET BY TABLET BY MOUTH AT MOUTH AT MOUTH AT BEDTIME FOR BEDTIME FOR BEDTIME INSOMNIA INSOMNIA FOR INSOMNIA Afluria Afluria No Afluria [facility] [id number] Medical (PF) 45 mcg (PF) 45 mcg (PF) 45 (15 mcg x (15 mcg x mcg (15 3)/0.5 mL 3)/0.5 mL mcg x IM syringe IM syringe 3)/0.5 mL TO BE TO BE IM syringe ADMINISTERE ADMINISTERE TO BE D BY D BY ADMINISTER PHARMACIST PHARMACIST ED BY FOR FOR PHARMACIST IMMUNIZATIO IMMUNIZATIO FOR N N IMMUNIZATI ON alprazolam alprazolam No alprazolam [facility] 0.25 mg 0.25 mg 0.25 mg Medica l tablet tablet tablet alprazolam alprazolam No alprazolam [facility] 0.5 mg 0.5 mg 0.5 mg Medical tablet TAKE tablet TAKE tablet 1 TABLET BY 1 TABLET BY TAKE 1 MOUTH 3 MOUTH 3 TABLET BY TIMES A DAY TIMES A DAY MOUTH 3 NEEDED NEEDED TIMES A DAY NEEDED alprazolam alprazolam No alprazolam [facility] 1 mg tablet 1 mg tablet 1 mg M edical tablet amlodipine amlodipine No amlodipine [facility] 2.5 mg 2.5 mg 2.5 mg Medical tablet tablet tablet amoxicillin amoxicillin No amoxicilli [facility] 500 mg 500 mg n 500 mg Medical capsule capsule capsule TAKE 4 TAKE 4 TAKE 4 CAPSULES BY CAPSULES BY CAPSULES MOUTH 1 MOUTH 1 BY MOUTH 1 HOUR PRIOR HOUR PRIOR HOUR PRIOR TO APPT TO APPT TO APPT amoxicillin amoxicillin No amoxicilli [facility] [phone] Medical mg-potassiu mg-potassiu mg-potassi m m um clavulanate clavulanate clavulanat 125 mg 125 mg e 125 mg tablet TAKE tablet TAKE tablet 1 TABLET BY 1 TABLET BY TAKE 1 MOUTH TWICE MOUTH TWICE TABLET BY A DAY WITH A DAY WITH MOUTH FOOD FOOD TWICE A DAY WITH FOOD aripiprazol aripiprazol No aripiprazo [facility] e 2 mg e 2 mg le 2 mg Medical tablet tablet tablet azathioprin azathioprin No azathiopri [facility] e 50 mg e 50 mg ne 50 mg Medic al tablet TAKE tablet TAKE tablet 3 TABLETS 3 TABLETS TAKE 3 BY MOUTH BY MOUTH TABLETS BY EVERY DAY EVERY DAY MOUTH EVERY DAY Enablex 7.5 Enablex 7.5 No Enablex Ev mg mg 7.5 mg Orth[facility] tablet,exte tablet,exte tablet,ext dic nded nded ended Sports release HX release HX release HX Medicin e azithromyci azithromyci No azithromyc [facility] n 250 mg n 250 mg in 250 mg Me dical tablet TAKE tablet TAKE tablet 2 TABLETS 2 TABLETS TAKE 2 BY MOUTH BY MOUTH TABLETS BY TODAY, THEN TODAY, THEN MOUTH TAKE 1 TAKE 1 TODAY, TABLET TABLET THEN TAKE DAILY FOR 4 DAILY FOR 4 1 TABLET DAYS DAYS DAILY FOR 4 DAYS Benlysta Benlysta No Benlysta Aby via 200 mg/mL 200 mg/mL 200 mg/mL Medical subcutaneou subcutaneou subcutaneo s s us auto-inject auto-inject auto-injec or inject 1 or inject 1 tor inject pen pen 1 pen subcutaneou subcutaneou subcutaneo sly one sly one usly one time a week time a week time a week benlysta m benlysta m No benlysta m [facility] benlysta benlysta benlysta 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 benzonatate benzonatate No benzonatat [facility] 100 mg 100 mg e 100 mg Medical capsule capsule capsule Boostrix Boostrix No Boostrix Aby via Tdap 2.5 Lf Tdap 2.5 Lf Tdap 2.5 Medical unit-8 unit-8 Lf unit-8 mcg-5 mcg-5 mcg-5 Lf/0.5 mL Lf/0.5 mL Lf/0.5 mL intramuscul intramuscul intramuscu ar syringe ar syringe lar syringe Botox 100 Botox 100 No Botox 100 [facility] unit unit unit Medical injection injection injection Botox 200 Botox 200 No Botox 200 [facility] unit unit unit Medical injection injection injection bromphenira bromphenira No bromphenir [facility] mine-pseudo mine-pseudo amine-pseu Medical ephedrine-D ephedrine-D doephedrin M 2 mg-30 M 2 mg-30 e-DM 2 mg-10 mg/5 mg-10 mg/5 mg-30 mL oral mL oral mg-10 mg/5 syrup syrup mL oral syrup bupropion bupropion No bupropion [facility] HCl XL 150 HCl XL 150 HCl XL 150 Medical mg 24 hr mg 24 hr mg 24 hr tablet, tablet, tablet, extended extended extended release release release bupropion bupropion No bupropion [facility] HCl XL 300 HCl XL 300 HCl XL 300 Medical mg 24 hr mg 24 hr mg 24 hr tablet, tablet, tablet, extended extended extended release release release cefdinir cefdinir No cefdinir Aby via 300 mg 300 mg 300 mg Medical capsule capsule capsule TAKE 2 TAKE 2 TAKE 2 CAPSULES BY CAPSULES BY CAPSULES MOUTH AT MOUTH AT BY MOUTH THE SAME THE SAME AT THE DAILY DAILY DAILY DAILY SAME DAILY DAILY cefuroxime cefuroxime No cefuroxime [facility] axetil 250 axetil 250 axetil 250 Medical mg tablet mg tablet mg tablet TAKE 1 TAKE 1 TAKE 1 TABLET BY TABLET BY TABLET BY MOUTH TWICE MOUTH TWICE MOUTH A DAY A DAY TWICE A DAY cephalexin cephalexin No cephalexin [facility] 500 mg 500 mg 500 mg Medical capsule capsule capsule TAKE ONE TAKE ONE TAKE ONE CAPSULE BY CAPSULE BY CAPSULE BY MOUTH EVERY MOUTH EVERY MOUTH 12 HOURS 12 HOURS EVERY 12 FOR 10 DAYS FOR 10 DAYS HOURS FOR 10 DAYS cevimeline cevimeline No cevimeline [facility] 30 mg 30 mg 30 mg Medical capsule capsule capsule ciprofloxac ciprofloxac No ciprofloxa [facility] in 250 mg in 250 mg justina 250 mg Medical tablet tablet tablet ciprofloxac ciprofloxac No ciprofloxa [facility] in 500 mg in 500 mg justina 500 mg Medical tablet TAKE tablet TAKE tablet 1 TABLET BY 1 TABLET BY TAKE 1 MOUTH EVERY MOUTH EVERY TABLET BY 12 HOURS 12 HOURS MOUTH EVERY 12 HOURS clonidine clonidine No clonidine [facility] HCl 0.1 mg HCl 0.1 mg HCl 0.1 mg Medical tablet tablet tablet colestipol colestipol No colestipol [facility] 1 gram 1 gram 1 gram Medical tablet tablet tablet Denta 5000 Denta 5000 No Denta 5000 [facility] Plus 1.1 % Plus 1.1 % Plus 1.1 % Medical cream USE cream USE cream USE AT AT AT BEDTIME.BRU BEDTIME.BRU BEDTIME.BR SH FOR 2 SH FOR 2 USH FOR 2 MINS, DO MINS, DO MINS, DO NOT RINSE NOT RINSE NOT RINSE AFTERWARDS. AFTERWARDS. AFTERWARDS . DentaGel DentaGel No DentaGel Aby via 1.1 % USE 1.1 % USE 1.1 % USE Medical AT BEDTIME. AT BEDTIME. AT DO NOT EAT DO NOT EAT BEDTIME. OR DRINK OR DRINK DO NOT EAT AFTER USE AFTER USE OR DRINK AFTER USE furosemide furosemide No furosemide Ev 20 mg 20 mg 20 mg [facility] tablet HX tablet HX tablet HX dic Sports Medicin e dexamethaso dexamethaso No dexamethas [facility] ne 2 mg ne 2 mg one 2 mg Medic al tablet TAKE tablet TAKE tablet 1 TABLET BY 1 TABLET BY TAKE 1 MOUTH TWICE MOUTH TWICE TABLET BY A DAY A DAY MOUTH TWICE A DAY dextroamphe dextroamphe No dextroamph [facility] tamine-amph tamine-amph etamine-am Medical etamine 10 etamine 10 phetamine mg tablet mg tablet 10 mg TAKE 1 TAKE 1 tablet TABLET BY TABLET BY TAKE 1 MOUTH 2 MOUTH 2 TABLET BY TIMES DAILY TIMES DAILY MOUTH 2 NEEDED NEEDED TIMES DAILY NEEDED dextroamphe dextroamphe No dextroamph [facility] tamine-amph tamine-amph etamine-am Medical etamine 15 etamine 15 phetamine mg tablet mg tablet 15 mg tablet dextroamphe dextroamphe No dextroamph [facility] tamine-amph tamine-amph etamine-am Medical etamine 7.5 etamine 7.5 phetamine mg tablet mg tablet 7.5 mg tablet diphenoxyla diphenoxyla No diphenoxyl [facility] te-atropine te-atropine ate-atropi Medical 2.5 2.5 ne 2.5 mg-0.025 mg mg-0.025 mg mg-0.025 tablet tablet mg tablet doxepin 25 doxepin 25 No doxepin 25 [facility] mg capsule mg capsule mg capsule Medical Emgality Emgality No Emgality Aby via 120 mg/mL 120 mg/mL 120 mg/mL Medical subcutaneou subcutaneou subcutaneo s syringe s syringe us syringe Emgality Emgality No Emgality Aby via Pen 120 Pen 120 Pen 120 Medica l mg/mL mg/mL mg/mL subcutaneou subcutaneou subcutaneo s pen s pen us pen injector injector injector INJECT INJECT INJECT SUBCUTANEOU SUBCUTANEOU SUBCUTANEO SLY ONCE A SLY ONCE A USLY ONCE MONTH MONTH A MONTH enoxaparin enoxaparin No enoxaparin [facility] 30 mg/0.3 30 mg/0.3 30 mg/0.3 Medical mL mL mL subcutaneou subcutaneou subcutaneo s syringe s syringe us syringe escitalopra escitalopra No escitalopr [facility] m 20 mg m 20 mg am 20 mg Medic al tablet TAKE tablet TAKE tablet 1 TABLET BY 1 TABLET BY TAKE 1 MOUTH ONCE MOUTH ONCE TABLET BY A DAY A DAY MOUTH ONCE A DAY eszopiclone eszopiclone No eszopiclon [facility] 3 mg tablet 3 mg tablet e 3 mg Medical TAKE 1 TAKE 1 tablet TABLET BY TABLET BY TAKE 1 MOUTH AT MOUTH AT TABLET BY BEDTIME BEDTIME MOUTH AT BEDTIME famotidine famotidine No famotidine [facility] 40 mg 40 mg 40 mg Medical tablet tablet tablet Fluad Quad Fluad Quad No Fluad Quad [facility] (([phone]( Medical 5yr up)(PF) 5yr up)(PF) 66yr 60 mcg (15 60 mcg (15 up)(PF) 60 mcg x mcg x mcg (15 4)/0.5mL IM 4)/0.5mL IM mcg x syringe syringe 4)/0.5mL IM syringe fluconazole fluconazole No fluconazol [facility] 150 mg 150 mg e 150 mg Medical tablet TAKE tablet TAKE tablet 1 TABLET BY 1 TABLET BY TAKE 1 MOUTH NOW MOUTH NOW TABLET BY MAY REPEAT MAY REPEAT MOUTH NOW IN 3 DAYS IN 3 DAYS MAY REPEAT IN 3 DAYS Fluzone Fluzone No Fluzone [facility] High-Dose High-Dose High-Dose Medical [phone] (PF) 180 (PF) 180 (PF) 180 mcg/0.5 mL mcg/0.5 mL mcg/0.5 mL intramuscul intramuscul intramuscu ar syringe ar syringe lar syringe Fluzone Fluzone No Fluzone [facility] High-Dose High-Dose High-Dose Medical [id number] (PF) 180 (PF) 180 (PF) 180 mcg/0.5 mL mcg/0.5 mL mcg/0.5 mL intramuscul intramuscul intramuscu ar syringe ar syringe lar syringe Fluzone Fluzone No Fluzone [facility] High-Dose High-Dose High-Dose Medical (PF) 180 (PF) 180 (PF) 180 mcg/0.5 mL mcg/0.5 mL mcg/0.5 mL intramuscul intramuscul intramuscu ar syringe ar syringe lar TO BE TO BE syringe TO ADMINISTERE ADMINISTERE BE D BY D BY ADMINISTER PHARMACIST PHARMACIST ASH BY FOR FOR PHARMACIST IMMUNIZATIO IMMUNIZATIO FOR N N IMMUNIZATI ON furosemide furosemide No furosemide [facility] 20 mg 20 mg 20 mg Medical tablet tablet tablet furosemide furosemide No furosemide [facility] 40 mg 40 mg 40 mg Medical tablet TK 1 tablet TK 1 tablet TK T PO QAM. T PO QAM. 1 T PO QAM. gabapentin gabapentin No gabapentin [facility] 100 mg 100 mg 100 mg Medical capsule capsule capsule TAKE ONE TAKE ONE TAKE ONE CAPSULE BY CAPSULE BY CAPSULE BY MOUTH 3 MOUTH 3 MOUTH 3 TIMES A DAY TIMES A DAY TIMES A STOP LYRICA STOP LYRICA DAY STOP LYRICA Levsin Levsin No Levsin Ev 0.125 mg 0.125 mg 0.125 mg Ort hope tablet HX tablet HX tablet HX dic Sports Medicin e gabapentin gabapentin No gabapentin [facility] 300 mg 300 mg 300 mg Medical capsule capsule capsule hydrochloro hydrochloro No hydrochlor [facility] thiazide 25 thiazide 25 othiazide Medical mg tablet mg tablet 25 mg tablet hydrocodone hydrocodone No hydrocodon [facility] 10 10 e 10 Medical mg-acetamin mg-acetamin mg-acetami ophen 325 ophen 325 nophen 325 mg tablet mg tablet mg tablet TK 1 T PO TK 1 T PO TK 1 T PO TID TID TID hydrocodone hydrocodone No hydrocodon [facility] 5 5 e 5 Medical mg-acetamin mg-acetamin mg-acetami ophen 325 ophen 325 nophen 325 mg tablet mg tablet mg tablet TAKE 1 TAKE 1 TAKE 1 TABLET BY TABLET BY TABLET BY MOUTH 4 MOUTH 4 MOUTH 4 TIMES DAILY TIMES DAILY TIMES NEEDED NEEDED DAILY FOR PAIN FOR PAIN NEEDED FOR MAY MAKE MAY MAKE PAIN MAY DROWSY DROWSY MAKE DROWSY hydrocodone hydrocodone No hydrocodon [facility] 7.5 7.5 e 7.5 Medical mg-acetamin mg-acetamin mg-acetami ophen 325 ophen 325 nophen 325 mg tablet mg tablet mg tablet TK 1 T PO TK 1 T PO TK 1 T PO QID PRN. QID PRN. QID PRN. hyoscyamine hyoscyamine No hyoscyamin [facility] 0.125 mg 0.125 mg e 0.125 mg M edical sublingual sublingual sublingual tablet tablet tablet hyoscyamine hyoscyamine No hyoscyamin [facility] sulfate sulfate e sulfate Medi kasey 0.125 mg 0.125 mg 0.125 mg tablet TAKE tablet TAKE tablet 1 TABLET BY 1 TABLET BY TAKE 1 MOUTH 3 MOUTH 3 TABLET BY TIMES A DAY TIMES A DAY MOUTH 3 TIMES A DAY Jardiance Jardiance No Jardiance [facility] 10 mg 10 mg 10 mg Medical tablet TAKE tablet TAKE tablet 1 TABLET BY 1 TABLET BY TAKE 1 MOUTH EVERY MOUTH EVERY TABLET BY MORNING MORNING MOUTH EVERY MORNING levocetiriz levocetiriz No levocetiri [facility] ine 5 mg ine 5 mg zine 5 mg Me dical tablet TAKE tablet TAKE tablet 2 TABLETS 2 TABLETS TAKE 2 BY MOUTH BY MOUTH TABLETS BY EVERY DAY EVERY DAY MOUTH EVERY DAY levofloxaci levofloxaci No levofloxac [facility] n 500 mg n 500 mg in 500 mg Me dical tablet TAKE tablet TAKE tablet 1 TABLET BY 1 TABLET BY TAKE 1 MOUTH EVERY MOUTH EVERY TABLET BY DAY DAY MOUTH EVERY DAY lidocaine 5 lidocaine 5 No lidocaine [facility] % topical % topical 5 % Medic al patch patch topical patch losartan losartan No losartan Aby via 100 mg 100 mg 100 mg Medical tablet tablet tablet losartan 25 losartan 25 No losartan [facility] mg tablet mg tablet 25 mg Medi kasey TAKE 1 TAKE 1 tablet TABLET BY TABLET BY TAKE 1 MOUTH EVERY MOUTH EVERY TABLET BY DAY DAY MOUTH EVERY DAY losartan 50 losartan 50 No losartan [facility] mg tablet mg tablet 50 mg Medi kasey tablet metformin metformin No metformin [facility] 1,000 mg 1,000 mg 1,000 mg Med ical tablet TAKE tablet TAKE tablet 1 TABLET BY 1 TABLET BY TAKE 1 MOUTH 2 MOUTH 2 TABLET BY TIMES A DAY TIMES A DAY MOUTH 2 TIMES A DAY metformin metformin No metformin [facility] 500 mg 500 mg 500 mg Medical tablet TK 1 tablet TK 1 tablet TK T PO BID Q T PO BID Q 1 T PO BID 12 H 12 H Q 12 H methylpredn methylpredn No methylpred [facility] isolone 4 isolone 4 nisolone 4 Medical mg tablets mg tablets mg tablets in a dose in a dose in a dose pack TAKE pack TAKE pack TAKE DIRECTED DIRECTED DIRECTED metoclopram metoclopram No metoclopra [facility] dagmar 10 mg dagmar 10 mg mide 10 mg Medical tablet TAKE tablet TAKE tablet 1 TABLET BY 1 TABLET BY TAKE 1 MOUTH 4 MOUTH 4 TABLET BY TIMES A DAY TIMES A DAY MOUTH 4 TIMES A DAY metronidazo metronidazo No metronidaz [facility] le 500 mg le 500 mg ole 500 mg Medical tablet TAKE tablet TAKE tablet 1 TABLET BY 1 TABLET BY TAKE 1 MOUTH 3 MOUTH 3 TABLET BY TIMES A DAY TIMES A DAY MOUTH 3 TIMES A DAY mirtazapine mirtazapine No mirtazapin [facility] 7.5 mg 7.5 mg e 7.5 mg Medical tablet tablet tablet Lexapro 5 Lexapro 5 No Lexapro 5 Ev mg tablet mg tablet mg tablet Orthope HX HX HX dic Sports Medicin e modafinil modafinil No modafinil [facility] 100 mg 100 mg 100 mg Medical tablet TAKE tablet TAKE tablet 1 TABLET BY 1 TABLET BY TAKE 1 MOUTH ONCE MOUTH ONCE TABLET BY A DAY (IN A DAY (IN MOUTH ONCE THE THE A DAY (IN MORNING) MORNING) THE MORNING) modafinil modafinil No modafinil [facility] 200 mg 200 mg 200 mg Medical tablet TAKE tablet TAKE tablet 1 TABLET BY 1 TABLET BY TAKE 1 MOUTH EVERY MOUTH EVERY TABLET BY MORNING MORNING MOUTH EVERY MORNING MoviPrep MoviPrep No MoviPrep Aby via 100 100 100 Medical gram-7.5 gram-7.5 gram-7.5 gram-2.691 gram-2.691 gram-2.691 gram oral gram oral gram oral powder powder powder packet packet packet mupirocin 2 mupirocin 2 No mupirocin [facility] % topical % topical 2 % Medic al ointment ointment topical APPLY TO APPLY TO ointment AFFECTED AFFECTED APPLY TO AREA 3 AREA 3 AFFECTED TIMES A DAY TIMES A DAY AREA 3 TOPICALLY TOPICALLY TIMES A DAY TOPICALLY mycophenola mycophenola No mycophenol [facility] te mofetil te mofetil ate Med ical 500 mg 500 mg mofetil tablet tablet 500 mg tablet nifedipine nifedipine No nifedipine [facility] ER 30 mg ER 30 mg ER 30 mg Med ical tablet,exte tablet,exte tablet,ext nded nded ended release release release nitrofurant nitrofurant No nitrofuran [facility] oin oin toin Medical monohydrate monohydrate monohydrat /macrocryst /macrocryst e/macrocry als 100 mg als 100 mg stals 100 capsule capsule mg capsule nortriptyli nortriptyli No nortriptyl [facility] ne 10 mg ne 10 mg ine 10 mg Me dical capsule capsule capsule TAKE 3 TAKE 3 TAKE 3 CAPSULES BY CAPSULES BY CAPSULES MOUTH AT MOUTH AT BY MOUTH BEDTIME BEDTIME AT BEDTIME nystatin nystatin No nystatin [facility]by via 100,000 100,000 100,000 Medica l unit/mL unit/mL unit/mL oral oral oral suspension suspension suspension 2 ML, SWISH 2 ML, SWISH 2 ML, AND SWALLOW AND SWALLOW SWISH AND EVERY SIX EVERY SIX SWALLOW HOURS. HOURS. EVERY SIX HOURS. omeprazole omeprazole No omeprazole [facility] 40 mg 40 mg 40 mg Medical capsule,del capsule,del capsule,de ayed ayed layed release release release TAKE ONE TAKE ONE TAKE ONE CAPSULE BY CAPSULE BY CAPSULE BY MOUTH EVERY MOUTH EVERY MOUTH DAY DAY EVERY DAY ondansetron ondansetron No ondansetro [facility] 4 mg 4 mg n 4 mg Medical disintegrat disintegrat disintegra ing tablet ing tablet ting tablet ondansetron ondansetron No ondansetro [facility] HCl 4 mg HCl 4 mg n HCl 4 mg M edical tablet TAKE tablet TAKE tablet 1 TABLET BY 1 TABLET BY TAKE 1 MOUTH EVERY MOUTH EVERY TABLET BY 8 HOURS 8 HOURS MOUTH NEEDED FOR NEEDED FOR EVERY 8 NAUSEA AND NAUSEA AND HOURS VOMITING VOMITING NEEDED FOR NAUSEA AND VOMITING ondansetron ondansetron No ondansetro [facility] HCl 8 mg HCl 8 mg n HCl 8 mg M edical tablet tablet tablet OneTouch OneTouch No OneTouch Aby via [facility] Medical Lancets 33 Lancets 33 Lancets 33 gauge TEST gauge TEST gauge TEST EVERY DAY EVERY DAY EVERY DAY OneTouch OneTouch No OneTouch Aby via Ultra Blue Ultra Blue Ultra Blue Medical Test Strip Test Strip Test Strip OneTouch OneTouch No OneTouch Aby via Ultra Test Ultra Test Ultra Test Medical strips TEST strips TEST strips EVERY DAY EVERY DAY TEST EVERY DAY OneTouch OneTouch No OneTouch Aby via Ultra2 Ultra2 Ultra2 Medical Meter Meter Meter OneTouch OneTouch No OneTouch Aby via Ultra2 Ultra2 Ultra2 Medical Meter kit Meter kit Meter kit USE USE USE DIRECTED DIRECTED DIRECTED OneTouch OneTouch No OneTouch Aby via UltraSoft UltraSoft UltraSoft Medical Lancets Lancets Lancets oxiconazole oxiconazole No oxiconazol [facility] 1 % topical 1 % topical e 1 % Medical cream cream topical cream metoclopram metoclopram No metoclopra Ev dagmar 10 mg dagmar 10 mg mide 10 mg Orthope tablet HX tablet HX tablet HX dic Sports Medicin e pantoprazol pantoprazol No pantoprazo [facility] e 40 mg e 40 mg le 40 mg Medic al tablet,long tablet,long tablet,del yed release yed release ayed TAKE 1 TAKE 1 release TABLET BY TABLET BY TAKE 1 MOUTH EVERY MOUTH EVERY TABLET BY DAY DAY MOUTH EVERY DAY potassium potassium No potassium [facility] chloride ER chloride ER chloride Medical 20 mEq 20 mEq ER 20 mEq tablet,exte tablet,exte tablet,ext nded nded ended release(par release(par release(pa t/cryst) t/cryst) rt/cryst) TAKE 1 TAKE 1 TAKE 1 TABLET BY TABLET BY TABLET BY MOUTH EVERY MOUTH EVERY MOUTH DAY DAY EVERY DAY prednisone prednisone No prednisone [facility] 10 mg 10 mg 10 mg Medical tablet tablet tablet Prevnar 13 Prevnar 13 No Prevnar 13 [facility] (PF) 0.5 mL (PF) 0.5 mL (PF) 0.5 Medical intramuscul intramuscul mL ar syringe ar syringe intramuscu TO BE TO BE lar ADMINISTERE ADMINISTERE syringe TO D BY D BY BE PHARMACIST PHARMACIST ADMINISTER FOR FOR ED BY IMMUNIZATIO IMMUNIZATIO PHARMACIST N N FOR IMMUNIZATI ON promethazin promethazin No promethazi [facility] e 25 mg e 25 mg ne 25 mg Medic al tablet TAKE tablet TAKE tablet 1 TABLET BY 1 TABLET BY TAKE 1 MOUTH EVERY MOUTH EVERY TABLET BY 6 HOURS 6 HOURS MOUTH NEEDED MAY NEEDED MAY EVERY 6 MAKE DROWSY MAKE DROWSY HOURS NEEDED MAY MAKE DROWSY promethazin promethazin No promethazi [facility] e-DM 6.25 e-DM 6.25 ne-DM 6.25 Medical mg-15 mg/5 mg-15 mg/5 mg-15 mg/5 mL oral mL oral mL oral syrup TAKE syrup TAKE syrup TAKE 1 TEASPOON 1 TEASPOON 1 TEASPOON BY MOUTH BY MOUTH BY MOUTH EVERY 6 EVERY 6 EVERY 6 HOURS HOURS HOURS NEEDED FOR NEEDED FOR NEEDED FOR COUGH COUGH COUGH Q-Tussin DM Q-Tussin DM No Q-Tussin [facility] 10 mg-100 10 mg-100 DM 10 Medi kasey mg/5 mL mg/5 mL mg-100 oral syrup oral syrup mg/5 mL TAKE 1 - 2 TAKE 1 - 2 oral syrup TEASPOON BY TEASPOON BY TAKE 1 - 2 MOUTH EVERY MOUTH EVERY TEASPOON 4 HOURS 4 HOURS BY MOUTH NEEDED NEEDED EVERY 4 HOURS NEEDED ranitidine ranitidine No ranitidine [facility] 150 mg 150 mg 150 mg Medical tablet TAKE tablet TAKE tablet 2 TABLETS 2 TABLETS TAKE 2 BY MOUTH BY MOUTH TABLETS BY EVERY DAY EVERY DAY MOUTH EVERY DAY ranitidine ranitidine No ranitidine [facility] 300 mg 300 mg 300 mg Medical tablet TAKE tablet TAKE tablet 1 TABLET BY 1 TABLET BY TAKE 1 MOUTH EVERY MOUTH EVERY TABLET BY MORNING MORNING MOUTH EVERY MORNING Remicade Remicade No Remicade Aby via 100 mg 100 mg 100 mg Medical intravenous intravenous intravenou solution solution s solution Inject by Inject by Inject by intravenous intravenous intravenou route. route. s route. Restasis Restasis No Restasis Aby via 0.05 % eye 0.05 % eye 0.05 % eye Medical drops in a drops in a drops in a dropperette dropperette dropperett INSTILL 1 INSTILL 1 e INSTILL DROP INTO DROP INTO 1 DROP BOTH EYES BOTH EYES INTO BOTH TWICE A DAY TWICE A DAY EYES TWICE A DAY sulfamethox sulfamethox No sulfametho [facility] azole 400 azole 400 xazole 400 Medical mg-trimetho mg-trimetho mg-trimeth prim 80 mg prim 80 mg oprim 80 tablet TAKE tablet TAKE mg tablet 2 TABLETS 2 TABLETS TAKE 2 BY ORAL BY ORAL TABLETS BY ROUTE EVERY ROUTE EVERY ORAL ROUTE 12 HOURS 12 HOURS EVERY 12 HOURS sumatriptan sumatriptan No sumatripta [facility] 100 mg 100 mg n 100 mg Medical tablet ONE tablet ONE tablet ONE TAB. AT TAB. AT TAB. AT START OF START OF START OF HEADACHE HEADACHE HEADACHE MAY REPEAT MAY REPEAT MAY REPEAT IN 2 HRS. IN 2 HRS. IN 2 HRS. PRN MAX. PRN MAX. PRN MAX. 2/24HRS. 2/24HRS. 2/24HRS. Suprep Suprep No Suprep [facility] Bowel Prep Bowel Prep Bowel Prep Medical Kit 17.5 Kit 17.5 Kit 17.5 gram-3.13 gram-3.13 gram-3.13 gram-1.6 gram-1.6 gram-1.6 gram oral gram oral gram oral solution solution solution terconazole terconazole No terconazol [facility] 0.8 % 0.8 % e 0.8 % Medical vaginal vaginal vaginal cream USE cream USE cream USE DIRECTED DIRECTED DIRECTED terconazole terconazole No terconazol [facility] 80 mg 80 mg e 80 mg Medical vaginal vaginal vaginal suppository suppository suppositor INSERT INSERT y INSERT VAGINALLY 1 VAGINALLY 1 VAGINALLY APPLICATORF APPLICATORF 1 UL AT NIGHT UL AT NIGHT APPLICATOR DIRECTED DIRECTED FUL AT NIGHT DIRECTED tizanidine tizanidine No tizanidine [facility] 4 mg tablet 4 mg tablet 4 mg M edical tablet tramadol tramadol No tramadol Aby via 37.5 37.5 37.5 Medical mg-acetamin mg-acetamin mg-acetami ophen 325 ophen 325 nophen 325 mg tablet mg tablet mg tablet TAKE 1 TAKE 1 TAKE 1 TABLET BY TABLET BY TABLET BY MOUTH EVERY MOUTH EVERY MOUTH 4 TO 6 4 TO 6 EVERY 4 TO HOURS HOURS 6 HOURS NEEDED FOR NEEDED FOR NEEDED FOR PAIN PAIN PAIN tramadol 50 tramadol 50 No tramadol [facility] mg tablet mg tablet 50 mg Medi kasey TAKE 1 TAKE 1 tablet TABLET BY TABLET BY TAKE 1 MOUTH TWICE MOUTH TWICE TABLET BY A DAY A DAY MOUTH NEEDED FOR NEEDED FOR TWICE A PAIN PAIN DAY NEEDED FOR PAIN trazodone trazodone No trazodone [facility] 100 mg 100 mg 100 mg Medical tablet tablet tablet Metozolv Metozolv No Metozolv Aza augustine ODT 5 mg ODT 5 mg ODT 5 mg Ort hope disintegrat disintegrat disintegra dic ing tablet ing tablet ting Spo rts HX HX tablet HX Medicin e trazodone trazodone No trazodone [facility] 50 mg 50 mg 50 mg Medical tablet tablet tablet Trintellix Trintellix No Trintellix [facility] 10 mg 10 mg 10 mg Medical tablet tablet tablet zolpidem 10 zolpidem 10 No zolpidem [facility] mg tablet mg tablet 10 mg [facility] kasey TK 1 T PO TK 1 T PO tablet TK QD QD 1 T PO QD zolpidem ER zolpidem ER No zolpidem [facility] 12.5 mg 12.5 mg ER 12.5 mg Med ical tablet,exte tablet,exte tablet,ext nded nded ended release,mul release,mul release,mu tiphase tiphase ltiphase TAKE 1 TAKE 1 TAKE 1 TABLET BY TABLET BY TABLET BY MOUTH AT MOUTH AT MOUTH AT BEDTIME FOR BEDTIME FOR BEDTIME INSOMNIA INSOMNIA FOR INSOMNIA Afluria Afluria No Afluria [facility] [id number] Medical (PF) 45 mcg (PF) 45 mcg (PF) 45 (15 mcg x (15 mcg x mcg (15 3)/0.5 mL 3)/0.5 mL mcg x IM syringe IM syringe 3)/0.5 mL TO BE TO BE IM syringe ADMINISTERE ADMINISTERE TO BE D BY D BY ADMINISTER PHARMACIST PHARMACIST ED BY FOR FOR PHARMACIST IMMUNIZATIO IMMUNIZATIO FOR N N IMMUNIZATI ON alprazolam alprazolam No alprazolam [facility] 0.25 mg 0.25 mg 0.25 mg Medica l tablet tablet tablet alprazolam alprazolam No alprazolam [facility] 0.5 mg 0.5 mg 0.5 mg Medical tablet TAKE tablet TAKE tablet 1 TABLET BY 1 TABLET BY TAKE 1 MOUTH 3 MOUTH 3 TABLET BY TIMES A DAY TIMES A DAY MOUTH 3 NEEDED NEEDED TIMES A DAY NEEDED alprazolam alprazolam No alprazolam [facility] 1 mg tablet 1 mg tablet 1 mg M edical tablet amlodipine amlodipine No amlodipine [facility] 2.5 mg 2.5 mg 2.5 mg Medical tablet tablet tablet amoxicillin amoxicillin No amoxicilli [facility] 500 mg 500 mg n 500 mg Medical capsule capsule capsule TAKE 4 TAKE 4 TAKE 4 CAPSULES BY CAPSULES BY CAPSULES MOUTH 1 MOUTH 1 BY MOUTH 1 HOUR PRIOR HOUR PRIOR HOUR PRIOR TO APPT TO APPT TO APPT amoxicillin amoxicillin No amoxicilli [facility] [phone] Medical mg-potassiu mg-potassiu mg-potassi m m um clavulanate clavulanate clavulanat 125 mg 125 mg e 125 mg tablet TAKE tablet TAKE tablet 1 TABLET BY 1 TABLET BY TAKE 1 MOUTH TWICE MOUTH TWICE TABLET BY A DAY WITH A DAY WITH MOUTH FOOD FOOD TWICE A DAY WITH FOOD aripiprazol aripiprazol No aripiprazo [facility] e 2 mg e 2 mg le 2 mg Medical tablet tablet tablet azathioprin azathioprin No azathiopri [facility] e 50 mg e 50 mg ne 50 mg Medic al tablet TAKE tablet TAKE tablet 3 TABLETS 3 TABLETS TAKE 3 BY MOUTH BY MOUTH TABLETS BY EVERY DAY EVERY DAY MOUTH EVERY DAY azithromyci azithromyci No azithromyc [facility] n 250 mg n 250 mg in 250 mg Me dical tablet TAKE tablet TAKE tablet 2 TABLETS 2 TABLETS TAKE 2 BY MOUTH BY MOUTH TABLETS BY TODAY, THEN TODAY, THEN MOUTH TAKE 1 TAKE 1 TODAY, TABLET TABLET THEN TAKE DAILY FOR 4 DAILY FOR 4 1 TABLET DAYS DAYS DAILY FOR 4 DAYS Benlysta Benlysta No Benlysta Aby via 200 mg/mL 200 mg/mL 200 mg/mL Medical subcutaneou subcutaneou subcutaneo s s us auto-inject auto-inject auto-injec or inject 1 or inject 1 tor inject pen pen 1 pen subcutaneou subcutaneou subcutaneo sly one sly one usly one time a week time a week time a week benlysta m benlysta m No benlysta m [facility] benlysta benlysta benlysta 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 benzonatate benzonatate No benzonatat [facility] 100 mg 100 mg e 100 mg Medical capsule capsule capsule Boostrix Boostrix No Boostrix Aby via Tdap 2.5 Lf Tdap 2.5 Lf Tdap 2.5 Medical unit-8 unit-8 Lf unit-8 mcg-5 mcg-5 mcg-5 Lf/0.5 mL Lf/0.5 mL Lf/0.5 mL intramuscul intramuscul intramuscu ar syringe ar syringe lar syringe Botox 100 Botox 100 No Botox 100 [facility] unit unit unit Medical injection injection injection INJECT UP INJECT UP INJECT UP TO 300 TO 300 TO 300 UNITS INTO UNITS INTO UNITS INTO THE MUSCLES THE MUSCLES THE OF THE HEAD OF THE HEAD MUSCLES OF AND NECK AND NECK THE HEAD EVERY 3 EVERY 3 AND NECK MONTHS BY MONTHS BY EVERY 3 PRESCRIBER PRESCRIBER MONTHS BY IN OFFICE. IN OFFICE. PRESCRIBER DISCARD DISCARD IN OFFICE. UNUSED UNUSED DISCARD PORTION PORTION UNUSED PORTION Botox 200 Botox 200 No Botox 200 [facility] unit unit unit Medical injection injection injection bromphenira bromphenira No bromphenir [facility] mine-pseudo mine-pseudo amine-pseu Medical ephedrine-D ephedrine-D doephedrin M 2 mg-30 M 2 mg-30 e-DM 2 mg-10 mg/5 mg-10 mg/5 mg-30 mL oral mL oral mg-10 mg/5 syrup syrup mL oral syrup bupropion bupropion No bupropion [facility] HCl XL 150 HCl XL 150 HCl XL 150 Medical mg 24 hr mg 24 hr mg 24 hr tablet, tablet, tablet, extended extended extended release release release bupropion bupropion No bupropion [facility] HCl XL 300 HCl XL 300 HCl XL 300 Medical mg 24 hr mg 24 hr mg 24 hr tablet, tablet, tablet, extended extended extended release release release cefdinir cefdinir No cefdinir Aby via 300 mg 300 mg 300 mg Medical capsule capsule capsule TAKE 2 TAKE 2 TAKE 2 CAPSULES BY CAPSULES BY CAPSULES MOUTH AT MOUTH AT BY MOUTH THE SAME THE SAME AT THE DAILY DAILY DAILY DAILY SAME DAILY DAILY cefuroxime cefuroxime No cefuroxime [facility] axetil 250 axetil 250 axetil 250 Medical mg tablet mg tablet mg tablet TAKE 1 TAKE 1 TAKE 1 TABLET BY TABLET BY TABLET BY MOUTH TWICE MOUTH TWICE MOUTH A DAY A DAY TWICE A DAY cephalexin cephalexin No cephalexin [facility] 500 mg 500 mg 500 mg Medical capsule capsule capsule TAKE ONE TAKE ONE TAKE ONE CAPSULE BY CAPSULE BY CAPSULE BY MOUTH EVERY MOUTH EVERY MOUTH 12 HOURS 12 HOURS EVERY 12 FOR 10 DAYS FOR 10 DAYS HOURS FOR 10 DAYS cevimeline cevimeline No cevimeline [facility] 30 mg 30 mg 30 mg Medical capsule capsule capsule ciprofloxac ciprofloxac No ciprofloxa [facility] in 250 mg in 250 mg justina 250 mg Medical tablet tablet tablet ciprofloxac ciprofloxac No ciprofloxa [facility] in 500 mg in 500 mg justina 500 mg Medical tablet TAKE tablet TAKE tablet 1 TABLET BY 1 TABLET BY TAKE 1 MOUTH EVERY MOUTH EVERY TABLET BY 12 HOURS 12 HOURS MOUTH EVERY 12 HOURS clonidine clonidine No clonidine [facility] HCl 0.1 mg HCl 0.1 mg HCl 0.1 mg Medical tablet tablet tablet omeprazole omeprazole No omeprazole Ev 20 mg 20 mg 20 mg [facility] tablet,long tablet,long tablet,del dic yed release yed release ayed S ports HX HX release HX Medicin e colestipol colestipol No colestipol [facility] 1 gram 1 gram 1 gram Medical tablet tablet tablet Denta 5000 Denta 5000 No Denta 5000 [facility] Plus 1.1 % Plus 1.1 % Plus 1.1 % Medical cream USE cream USE cream USE AT AT AT BEDTIME.BRU BEDTIME.BRU BEDTIME.BR SH FOR 2 SH FOR 2 USH FOR 2 MINS, DO MINS, DO MINS, DO NOT RINSE NOT RINSE NOT RINSE AFTERWARDS. AFTERWARDS. AFTERWARDS . DentaGel DentaGel No DentaGel Aby via 1.1 % USE 1.1 % USE 1.1 % USE Medical AT BEDTIME. AT BEDTIME. AT DO NOT EAT DO NOT EAT BEDTIME. OR DRINK OR DRINK DO NOT EAT AFTER USE AFTER USE OR DRINK AFTER USE dexamethaso dexamethaso No dexamethas [facility] ne 2 mg ne 2 mg one 2 mg Medic al tablet TAKE tablet TAKE tablet 1 TABLET BY 1 TABLET BY TAKE 1 MOUTH TWICE MOUTH TWICE TABLET BY A DAY A DAY MOUTH TWICE A DAY dextroamphe dextroamphe No dextroamph [facility] tamine-amph tamine-amph etamine-am Medical etamine 10 etamine 10 phetamine mg tablet mg tablet 10 mg TAKE 1 TAKE 1 tablet TABLET BY TABLET BY TAKE 1 MOUTH 2 MOUTH 2 TABLET BY TIMES DAILY TIMES DAILY MOUTH 2 NEEDED NEEDED TIMES DAILY NEEDED dextroamphe dextroamphe No dextroamph [facility] tamine-amph tamine-amph etamine-am Medical etamine 15 etamine 15 phetamine mg tablet mg tablet 15 mg tablet dextroamphe dextroamphe No dextroamph [facility] tamine-amph tamine-amph etamine-am Medical etamine 7.5 etamine 7.5 phetamine mg tablet mg tablet 7.5 mg tablet diethylprop diethylprop No diethylpro [facility] ion 25 mg ion 25 mg pion 25 mg Medical tablet TAKE tablet TAKE tablet 1 TABLET BY 1 TABLET BY TAKE 1 MOUTH THREE MOUTH THREE TABLET BY TIMES DAILY TIMES DAILY MOUTH 1 HOUR 1 HOUR THREE BEFORE BEFORE TIMES MEALS MEALS DAILY 1 HOUR BEFORE MEALS diphenoxyla diphenoxyla No diphenoxyl [facility] te-atropine te-atropine ate-atropi Medical 2.5 2.5 ne 2.5 mg-0.025 mg mg-0.025 mg mg-0.025 tablet tablet mg tablet doxepin 25 doxepin 25 No doxepin 25 [facility] mg capsule mg capsule mg capsule Medical Emgality Emgality No Emgality Aby via 120 mg/mL 120 mg/mL 120 mg/mL Medical subcutaneou subcutaneou subcutaneo s syringe s syringe us syringe Emgality Emgality No Emgality Aby via Pen 120 Pen 120 Pen 120 Medica l mg/mL mg/mL mg/mL subcutaneou subcutaneou subcutaneo s pen s pen us pen injector injector injector INJECT INJECT INJECT SUBCUTANEOU SUBCUTANEOU SUBCUTANEO SLY ONCE A SLY ONCE A USLY ONCE MONTH MONTH A MONTH enoxaparin enoxaparin No enoxaparin [facility] 30 mg/0.3 30 mg/0.3 30 mg/0.3 Medical mL mL mL subcutaneou subcutaneou subcutaneo s syringe s syringe us syringe escitalopra escitalopra No escitalopr [facility] m 20 mg m 20 mg am 20 mg Medic al tablet TAKE tablet TAKE tablet 1 TABLET BY 1 TABLET BY TAKE 1 MOUTH ONCE MOUTH ONCE TABLET BY A DAY A DAY MOUTH ONCE A DAY eszopiclone eszopiclone No eszopiclon [facility] 3 mg tablet 3 mg tablet e 3 mg Medical TAKE 1 TAKE 1 tablet TABLET BY TABLET BY TAKE 1 MOUTH AT MOUTH AT TABLET BY BEDTIME BEDTIME MOUTH AT BEDTIME famotidine famotidine No famotidine [facility] 40 mg 40 mg 40 mg Medical tablet tablet tablet Fluad Quad Fluad Quad No Fluad Quad [facility] (6 [phone]( Medical 5yr up)(PF) 5yr up)(PF) 66yr 60 mcg (15 60 mcg (15 up)(PF) 60 mcg x mcg x mcg (15 4)/0.5mL IM 4)/0.5mL IM mcg x syringe syringe 4)/0.5mL IM syringe fluconazole fluconazole No fluconazol [facility] 150 mg 150 mg e 150 mg Medical tablet TAKE tablet TAKE tablet 1 TABLET BY 1 TABLET BY TAKE 1 MOUTH NOW MOUTH NOW TABLET BY MAY REPEAT MAY REPEAT MOUTH NOW IN 3 DAYS IN 3 DAYS MAY REPEAT IN 3 DAYS Fluzone Fluzone No Fluzone [facility] [id number] (PF) 180 (PF) 180 (PF) 180 mcg/0.5 mL mcg/0.5 mL mcg/0.5 mL intramuscul intramuscul intramuscu ar syringe ar syringe lar syringe Fluzone Fluzone No Fluzone [facility] [id number] (PF) 180 (PF) 180 (PF) 180 mcg/0.5 mL mcg/0.5 mL mcg/0.5 mL intramuscul intramuscul intramuscu ar syringe ar syringe lar syringe potassium potassium No potassium Ev citrate citrate citrate Orthop e monohydrate monohydrate monohydrat dic (bulk) 100 (bulk) 100 e (bulk) Sports % powder HX % powder HX 100 % Medicin powder HX e Fluzone Fluzone No Fluzone [facility] (PF) 180 (PF) 180 (PF) 180 mcg/0.5 mL mcg/0.5 mL mcg/0.5 mL intramuscul intramuscul intramuscu ar syringe ar syringe lar TO BE TO BE syringe TO ADMINISTERE ADMINISTERE BE D BY D BY ADMINISTER PHARMACIST PHARMACIST ASH BY CARLEEN FOR PHARMACIST IMMUNIZATIO IMMUNIZATIO FOR N N IMMUNIZATI ON furosemide furosemide No furosemide [facility] 20 mg 20 mg 20 mg Medical tablet tablet tablet furosemide furosemide No furosemide [facility] 40 mg 40 mg 40 mg Medical tablet TK 1 tablet TK 1 tablet TK T PO QAM. T PO QAM. 1 T PO QAM. gabapentin gabapentin No gabapentin [facility] 100 mg 100 mg 100 mg Medical capsule capsule capsule TAKE ONE TAKE ONE TAKE ONE CAPSULE BY CAPSULE BY CAPSULE BY MOUTH 3 MOUTH 3 MOUTH 3 TIMES A DAY TIMES A DAY TIMES A STOP LYRICA STOP LYRICA DAY STOP LYRICA gabapentin gabapentin No gabapentin [facility] 300 mg 300 mg 300 mg Medical capsule capsule capsule hydrochloro hydrochloro No hydrochlor [facility] thiazide 25 thiazide 25 othiazide Medical mg tablet mg tablet 25 mg tablet hydrocodone hydrocodone No hydrocodon [facility] 10 10 e 10 Medical mg-acetamin mg-acetamin mg-acetami ophen 325 ophen 325 nophen 325 mg tablet mg tablet mg tablet TK 1 T PO TK 1 T PO TK 1 T PO TID TID TID hydrocodone hydrocodone No hydrocodon [facility] 5 5 e 5 Medical mg-acetamin mg-acetamin mg-acetami ophen 325 ophen 325 nophen 325 mg tablet mg tablet mg tablet TAKE 1 TAKE 1 TAKE 1 TABLET BY TABLET BY TABLET BY MOUTH 4 MOUTH 4 MOUTH 4 TIMES DAILY TIMES DAILY TIMES NEEDED NEEDED DAILY FOR PAIN FOR PAIN NEEDED FOR MAY MAKE MAY MAKE PAIN MAY DROWSY DROWSY MAKE DROWSY hydrocodone hydrocodone No hydrocodon [facility] 7.5 7.5 e 7.5 Medical mg-acetamin mg-acetamin mg-acetami ophen 325 ophen 325 nophen 325 mg tablet mg tablet mg tablet TK 1 T PO TK 1 T PO TK 1 T PO QID PRN. QID PRN. QID PRN. hyoscyamine hyoscyamine No hyoscyamin [facility] 0.125 mg 0.125 mg e 0.125 mg M edical sublingual sublingual sublingual tablet tablet tablet promethazin promethazin No promethazi Ev e 12.5 mg e 12.5 mg ne 12.5 mg Orthope tablet HX tablet HX tablet HX dic Sports Medicin e hyoscyamine hyoscyamine No hyoscyamin [facility] sulfate sulfate e sulfate Medi kasey 0.125 mg 0.125 mg 0.125 mg tablet TAKE tablet TAKE tablet 1 TABLET BY 1 TABLET BY TAKE 1 MOUTH 3 MOUTH 3 TABLET BY TIMES A DAY TIMES A DAY MOUTH 3 TIMES A DAY Jardiance Jardiance No Jardiance [facility] 10 mg 10 mg 10 mg Medical tablet TAKE tablet TAKE tablet 1 TABLET BY 1 TABLET BY TAKE 1 MOUTH EVERY MOUTH EVERY TABLET BY MORNING MORNING MOUTH EVERY MORNING Lagevrio Lagevrio No Lagevrio Aby via 200 mg 200 mg 200 mg Medical capsule capsule capsule (EUA) TAKE (EUA) TAKE (EUA) TAKE 4 CAPSULES 4 CAPSULES 4 CAPSULES BY MOUTH BY MOUTH BY MOUTH TWICE DAILY TWICE DAILY TWICE DAILY levocetiriz levocetiriz No levocetiri [facility] ine 5 mg ine 5 mg zine 5 mg Me dical tablet TAKE tablet TAKE tablet 2 TABLETS 2 TABLETS TAKE 2 BY MOUTH BY MOUTH TABLETS BY EVERY DAY EVERY DAY MOUTH EVERY DAY levofloxaci levofloxaci No levofloxac [facility] n 500 mg n 500 mg in 500 mg Me dical tablet TAKE tablet TAKE tablet 1 TABLET BY 1 TABLET BY TAKE 1 MOUTH EVERY MOUTH EVERY TABLET BY DAY DAY MOUTH EVERY DAY lidocaine 5 lidocaine 5 No lidocaine [facility] % topical % topical 5 % Medic al patch patch topical patch losartan losartan No losartan Aby via 100 mg 100 mg 100 mg Medical tablet tablet tablet losartan 25 losartan 25 No losartan [facility] mg tablet mg tablet 25 mg Medi kasey TAKE 1 TAKE 1 tablet TABLET BY TABLET BY TAKE 1 MOUTH EVERY MOUTH EVERY TABLET BY DAY DAY MOUTH EVERY DAY losartan 50 losartan 50 No losartan [facility] mg tablet mg tablet 50 mg Medi kasey tablet metformin metformin No metformin [facility] 1,000 mg 1,000 mg 1,000 mg Med ical tablet TAKE tablet TAKE tablet 1 TABLET BY 1 TABLET BY TAKE 1 MOUTH 2 MOUTH 2 TABLET BY TIMES A DAY TIMES A DAY MOUTH 2 TIMES A DAY sucralfate sucralfate No sucralfate Ev 1 gram 1 gram 1 gram Orthope tablet HX tablet HX tablet HX dic Sports Medicin e metformin metformin No metformin [facility] 500 mg 500 mg 500 mg Medical tablet TK 1 tablet TK 1 tablet TK T PO BID Q T PO BID Q 1 T PO BID 12 H 12 H Q 12 H methylpredn methylpredn No methylpred [facility] isolone 4 isolone 4 nisolone 4 Medical mg tablets mg tablets mg tablets in a dose in a dose in a dose pack TAKE pack TAKE pack TAKE DIRECTED DIRECTED DIRECTED metoclopram metoclopram No metoclopra [facility] dagmar 10 mg dagmar 10 mg mide 10 mg Medical tablet TAKE tablet TAKE tablet 1 TABLET BY 1 TABLET BY TAKE 1 MOUTH 4 MOUTH 4 TABLET BY TIMES A DAY TIMES A DAY MOUTH 4 TIMES A DAY metronidazo metronidazo No metronidaz [facility] le 500 mg le 500 mg ole 500 mg Medical tablet TAKE tablet TAKE tablet 1 TABLET BY 1 TABLET BY TAKE 1 MOUTH 3 MOUTH 3 TABLET BY TIMES A DAY TIMES A DAY MOUTH 3 TIMES A DAY mirtazapine mirtazapine No mirtazapin [facility] 7.5 mg 7.5 mg e 7.5 mg Medical tablet tablet tablet modafinil modafinil No modafinil [facility] 100 mg 100 mg 100 mg Medical tablet TAKE tablet TAKE tablet 1 TABLET BY 1 TABLET BY TAKE 1 MOUTH ONCE MOUTH ONCE TABLET BY A DAY (IN A DAY (IN MOUTH ONCE THE THE A DAY (IN MORNING) MORNING) THE MORNING) modafinil modafinil No modafinil [facility] 200 mg 200 mg 200 mg Medical tablet TAKE tablet TAKE tablet 1 TABLET BY 1 TABLET BY TAKE 1 MOUTH EVERY MOUTH EVERY TABLET BY MORNING MORNING MOUTH EVERY MORNING MoviPrep MoviPrep No MoviPrep Aby via 100 100 100 Medical gram-7.5 gram-7.5 gram-7.5 gram-2.691 gram-2.691 gram-2.691 gram oral gram oral gram oral powder powder powder packet packet packet mupirocin 2 mupirocin 2 No mupirocin [facility] % topical % topical 2 % Medic al ointment ointment topical APPLY TO APPLY TO ointment AFFECTED AFFECTED APPLY TO AREA 3 AREA 3 AFFECTED TIMES A DAY TIMES A DAY AREA 3 TOPICALLY TOPICALLY TIMES A DAY TOPICALLY mycophenola mycophenola No mycophenol [facility] te mofetil te mofetil ate Med ical 500 mg 500 mg mofetil tablet tablet 500 mg tablet sumatriptan sumatriptan No sumatripta Ev 20 20 n 20 Orth[facility] mg/actuatio mg/actuatio mg/actuati dic n nasal n nasal on nasal Sport s spray HX spray HX spray HX Med icin e nifedipine nifedipine No nifedipine [facility] ER 30 mg ER 30 mg ER 30 mg Med ical tablet,exte tablet,exte tablet,ext nded nded ended release release release nitrofurant nitrofurant No nitrofuran [facility] oin oin toin Medical monohydrate monohydrate monohydrat /macrocryst /macrocryst e/macrocry als 100 mg als 100 mg stals 100 capsule capsule mg capsule nortriptyli nortriptyli No nortriptyl [facility] ne 10 mg ne 10 mg ine 10 mg Me dical capsule capsule capsule TAKE 3 TAKE 3 TAKE 3 CAPSULES BY CAPSULES BY CAPSULES MOUTH AT MOUTH AT BY MOUTH BEDTIME BEDTIME AT BEDTIME nystatin nystatin No nystatin Aby via 100,000 100,000 100,000 Medica l unit/mL unit/mL unit/mL oral oral oral suspension suspension suspension 2 ML, SWISH 2 ML, SWISH 2 ML, AND SWALLOW AND SWALLOW SWISH AND EVERY SIX EVERY SIX SWALLOW HOURS. HOURS. EVERY SIX HOURS. omeprazole omeprazole No omeprazole [facility] 40 mg 40 mg 40 mg Medical capsule,del capsule,del capsule,de ayed ayed layed release release release TAKE ONE TAKE ONE TAKE ONE CAPSULE BY CAPSULE BY CAPSULE BY MOUTH EVERY MOUTH EVERY MOUTH DAY DAY EVERY DAY ondansetron ondansetron No ondansetro [facility] 4 mg 4 mg n 4 mg Medical disintegrat disintegrat disintegra ing tablet ing tablet ting tablet ondansetron ondansetron No ondansetro [facility] HCl 4 mg HCl 4 mg n HCl 4 mg M edical tablet TAKE tablet TAKE tablet 1 TABLET BY 1 TABLET BY TAKE 1 MOUTH EVERY MOUTH EVERY TABLET BY 8 HOURS 8 HOURS MOUTH NEEDED FOR NEEDED FOR EVERY 8 NAUSEA AND NAUSEA AND HOURS VOMITING VOMITING NEEDED FOR NAUSEA AND VOMITING ondansetron ondansetron No ondansetro [facility] HCl 8 mg HCl 8 mg n HCl 8 mg M edical tablet tablet tablet OneTouch OneTouch No OneTouch Aby via Delica [facility] Lancets 33 Lancets 33 Lancets 33 gauge TEST gauge TEST gauge TEST EVERY DAY EVERY DAY EVERY DAY OneTouch OneTouch No OneTouch Aby via Ultra Blue Ultra Blue Ultra Blue Medical Test Strip Test Strip Test Strip topiramate topiramate No topiramate Ev 25 mg 25 mg 25 mg Orthope tablet HX tablet HX tablet HX dic Sports Medicin e OneTouch OneTouch No OneTouch Aby via Ultra Test Ultra Test Ultra Test Medical strips TEST strips TEST strips EVERY DAY EVERY DAY TEST EVERY DAY OneTouch OneTouch No OneTouch Aby via Ultra2 Ultra2 Ultra2 Medical Meter Meter Meter OneTouch OneTouch No OneTouch Aby via Ultra2 Ultra2 Ultra2 Medical Meter kit Meter kit Meter kit USE USE USE DIRECTED DIRECTED DIRECTED OneTouch OneTouch No OneTouch Aby via UltraSoft UltraSoft UltraSoft Medical Lancets Lancets Lancets oxiconazole oxiconazole No oxiconazol [facility] 1 % topical 1 % topical e 1 % Medical cream cream topical cream pantoprazol pantoprazol No pantoprazo [facility] e 40 mg e 40 mg le 40 mg Medic al tablet,long tablet,long tablet,del yed release yed release ayed TAKE 1 TAKE 1 release TABLET BY TABLET BY TAKE 1 MOUTH EVERY MOUTH EVERY TABLET BY DAY DAY MOUTH EVERY DAY phentermine phentermine No phentermin [facility] 37.5 mg 37.5 mg e 37.5 mg Medi kasey tablet TAKE tablet TAKE tablet 1 TABLET BY 1 TABLET BY TAKE 1 MOUTH EVERY MOUTH EVERY TABLET BY DAY DAY MOUTH EVERY DAY potassium potassium No potassium [facility] chloride ER chloride ER chloride Medical 20 mEq 20 mEq ER 20 mEq tablet,exte tablet,exte tablet,ext nded nded ended release(par release(par release(pa t/cryst) t/cryst) rt/cryst) TAKE 1 TAKE 1 TAKE 1 TABLET BY TABLET BY TABLET BY MOUTH EVERY MOUTH EVERY MOUTH DAY DAY EVERY DAY prednisone prednisone No prednisone [facility] 10 mg 10 mg 10 mg Medical tablet tablet tablet Prevnar 13 Prevnar 13 No Prevnar 13 [facility] (PF) 0.5 mL (PF) 0.5 mL (PF) 0.5 Medical intramuscul intramuscul mL ar syringe ar syringe intramuscu TO BE TO BE lar ADMINISTERE ADMINISTERE syringe TO D BY D BY BE PHARMACIST PHARMACIST ADMINISTER FOR FOR ED BY IMMUNIZATIO IMMUNIZATIO PHARMACIST N N FOR IMMUNIZATI ON Immunizations Ordered Immunization Filled Immunization Date Status Commen ts Source Name Name ADELINA MATTHEWS Unknown Com[facility] Unknown [facility] M[facility] Unknown [facility] MRNA Unknown [facility] Pneumococcal Unknown Completed [facility] Pneumococcal Unknown Completed [facility] Vital Signs Vital Name Observation Time Observation Value Comments Source HEIGHT 2022-08-25 10:09:00 167.6 cm WEIGHT 2022-08-25 10:09:00 84.6 kg WEIGHT 2022-08-23 09:58:00 83.915 kg HEIGHT 2022-08-23 09:58:00 167.6 cm HEIGHT 2022-08-25 10:09:00 167.6 cm WEIGHT 2022-08-25 10:09:00 84.6 kg WEIGHT 2022-08-23 09:58:00 83.915 kg HEIGHT 2022-08-23 09:58:00 167.6 cm HEIGHT 2022-08-25 10:09:00 167.6 cm WEIGHT 2022-08-25 10:09:00 84.6 kg WEIGHT 2022-08-23 09:58:00 83.915 kg HEIGHT 2022-08-23 09:58:00 167.6 cm Systolic blood 2019-08-01 19:50:00 205 mm[Hg] Univer sity of pressure [facility] Diastolic blood 2019-08-01 19:50:00 94 mm[Hg] [facility] of [facility] Heart rate 2019-08-01 19:49:00 76 /min [facility] Body temperature 2019-08-01 19:49:00 36.89 Erica [facility] 2019-08-01 19:49:00 20 /min [facility] Body weight 2019-08-01 19:49:00 83.915 kg [facility] BMI 2019-08-01 19:49:00 29.86 kg/m2 [facility] Oxygen saturation in 2019-08-01 19:49:00 97 /min [facility] Arterial blood by [facility] Pulse oximetry Branch Systolic blood 2019-08-01 19:50:00 205 mm[Hg] Univer sity of pressure [facility] Diastolic blood 2019-08-01 19:50:00 94 mm[Hg] [facility] of [facility] Heart rate 2019-08-01 19:49:00 76 /min [facility] Body temperature 2019-08-01 19:49:00 36.89 Erica Univ ersity of [facility] Respiratory rate 2019-08-01 19:49:00 20 /min Univ ersity of [facility] Body weight 2019-08-01 19:49:00 83.915 kg [facility]i ty [facility] BMI 2019-08-01 19:49:00 29.86 kg/m2 [facility] Oxygen saturation in 2019-08-01 19:49:00 97 /min [facility] Arterial blood by [facility] Pulse oximetry [place] Systolic blood 2023-02-01 16:16:49 118 mm[Hg] [facility] pressure Diastolic blood 2023-02-01 16:16:49 76 mm[Hg] [facility] pressure Heart rate 2023-02-01 16:16:49 62 /min [facility] Body temperature 2023-02-01 16:16:49 36.72 Erica [facility] Respiratory rate 2023-02-01 16:16:49 18 /min [facility] Oxygen saturation in 2023-02-01 16:16:49 100 /min [facility] Arterial blood by Pulse oximetry Body height 2023-01-28 21:03:00 167.6 cm [facility] Body weight 2023-01-28 21:03:00 84.823 kg [facility] BMI 2023-01-28 21:03:00 30.18 kg/m2 [facility] Systolic blood 2022-08-25 14:49:00 130 mm[Hg] [facility] Diastolic blood 2022-08-25 14:49:00 71 mm[Hg] [facility] Heart rate 2022-08-25 14:49:00 70 /min [facility] Respiratory rate 2022-08-25 14:49:00 19 /min [facility] Oxygen saturation in 2022-08-25 14:49:00 95 /min [facility] Arterial blood by Medical Ce nter Pulse oximetry Body temperature 2022-08-25 14:30:00 37 Erica [facility] Body height 2022-08-25 10:09:00 167.6 cm [facility] Body weight 2022-08-25 10:09:00 84.6 kg [facility] BMI 2022-08-25 10:09:00 30.10 kg/m2 [facility] Heart Rate 2017-01-12 13:15:00 [facility] Temperature Oral (F) 2017-01-12 13:15:00 98.2 F [facility] Respitory Rate 2017-01-12 13:15:00 [facility] Systolic (mm Hg) 2017-01-12 13:15:00 [facility] [place] Diastolic (mm Hg) 2017-01-12 13:15:00 [facility] Respitory Rate 2017-01-12 09:00:00 [facility] Systolic (mm Hg) 2017-01-12 09:00:00 [facility] Diastolic (mm Hg) 2017-01-12 09:00:00 [facility] [place] Temperature Oral (F) 2017-01-12 09:00:00 98.6 F [facility] Heart Rate 2017-01-12 09:00:00 [facility] Heart Rate 2017-01-12 05:00:00 [facility] Temperature Oral (F) 2017-01-12 05:00:00 99.2 F [facility] Systolic (mm Hg) 2017-01-12 05:00:00 [facility] [place] Diastolic (mm Hg) 2017-01-12 05:00:00 [facility] [place] Respitory Rate 2017-01-12 05:00:00 [facility] Weight 2017-01-10 17:08:00 [facility] BMI Calculated 2017-01-10 17:08:00 [facility] Height 2017-01-10 17:08:00 167.64 cm [facility] Height 2017-01-06 21:23:00 152.4 cm [facility] Weight 2017-01-06 21:23:00 [facility] BMI Calculated 2017-01-06 21:23:00 [facility] [place] Systolic (mm Hg) 2015-05-30 17:30:00 [facility] [place] Diastolic (mm Hg) 2015-05-30 17:30:00 [facility] [place] Respitory Rate 2015-05-30 17:30:00 [facility] Systolic (mm Hg) 2015-05-30 17:15:00 [facility] [place] Diastolic (mm Hg) 2015-05-30 17:15:00 [facility] [place] Respitory Rate 2015-05-30 17:15:00 [facility] Respitory Rate 2015-05-30 17:00:00 [facility] Systolic (mm Hg) 2015-05-30 17:00:00 [facility] Diastolic (mm Hg) 2015-05-30 17:00:00 [facility] [place] Height 2015-05-27 17:55:00 167.64 cm [facility] BMI Calculated 2015-05-27 17:55:00 [facility] Weight 2015-05-27 17:55:00 [facility] Systolic (mm Hg) 2015-02-28 18:33:00 [facility] [place] Diastolic (mm Hg) 2015-02-28 18:33:00 [facility] [place] Systolic (mm Hg) 2015-02-28 18:30:00 Sunday [facility] Diastolic (mm Hg) 2015-02-28 18:30:00 [facility] [place] Respitory Rate 2015-02-28 18:30:00 [facility] [place] Systolic (mm Hg) 2015-02-28 18:15:00 [facility] Diastolic (mm Hg) 2015-02-28 18:15:00 [facility] [place] Respitory Rate 2015-02-28 18:15:00 [facility] Respitory Rate 2015-02-28 18:00:00 [facility] Heart Rate 2015-02-28 13:15:00 [facility] BMI Calculated 2015-02-26 22:25:00 [facility] Weight 2015-02-26 22:25:00 [facility] Height 2015-02-26 22:25:00 167.64 cm [facility] Procedures Procedure Date / Time Performing Source Performed Clinician HEMOGLOBIN & HEMATOCRIT 2023-02-[address] 14:18:00 [facility] SURGICAL PATHOLOGY REQUEST 2023-01-31 Disha, Anna Metho dist 23:19:00 [facility] POC GLUCOSE 2023-01-31 Anna Gauthier [facility] 21:18:00 [facility] NE AN ELECTIVE ENDOTRACHEAL 2023-01-31 Darling Kelley odist [facility] 19:35:00 Hospital COLONOSCOPY 2023-01-31 Tita Melvin [facility] 19:18:00 [facility] POC PANEL 2023-01-31 Anna Gauthier [facility] 18:21:00 [facility] HEMOGLOBIN & HEMATOCRIT 2023-01-31 Anna Gauthieris t 09:22:00 [facility] POC GLUCOSE 2023-01-29 Anna Gauthier [facility] 16:55:00 [facility] ESOPHAGOGASTRODUODENOSCOPY (EGD) 2023-01-29 Lamont Joshi 16:11:00 [facility] SURGICAL PATHOLOGY REQUEST 2023-01-29 Anna Gauthiero dist 14:47:00 [facility] HEMOGLOBIN & HEMATOCRIT 2023-01-28 Kelly Garcia odist 22:29:00 Hospital POC GLUCOSE 2023-01-28 Anna Gauthier [facility] 13:53:00 [facility] HEMOGLOBIN & HEMATOCRIT 2023-01-28 Kelly Garcia odist 13:32:00 Hospital HEMOGLOBIN & HEMATOCRIT 2023-01-28 Kelly Garcia odist 05:15:00 Hospital ECG ED PRELIMINARY INTERPRETATION 2023-01-28 Carl Hallman [facility] 04:59:07 Hospital COVID-19, INFLUENZA A&B, AND RSV 2023-01-28 Tristan Villalta Gi ll [facility] QUALITATIVE RT-PCR 01:11:00 Hospital URINE CULTURE 2023-01-28 Tristan Villalta [facility] 01:04:00 Hospital URINALYSIS SCREEN AND MICROSCOPY, 2023-01-28 Tristan Villalta ill [facility] WITH REFLEX TO CULTURE 00:30:00 Hospital CBC WITH PLATELET AND 2023-01-27 Tristan Villaltais t DIFFERENTIAL 23:17:00 Hospital PROTHROMBIN TIME WITH INR 2023-01-27 Tristan Villalta Meth odist 23:17:00 Hospital TYPE AND SCREEN 2023-01-27 Jordan Villaltayvon Sexton [facility] 23:17:00 Hospital COMPREHENSIVE METABOLIC PANEL 2023-01-27 Ambar Tristanyvon Sexton [facility] 23:17:00 Hospital LIPASE LEVEL 2023-01-27 Shivaniphilomena Tristanyvon Sexton [facility] 23:17:00 Hospital PARTIAL THROMBOPLASTIN TIME (PTT) 2023-01-27 Tristan Villalta Shaila ill [facility] 23:17:00 Hospital AMMONIA LEVEL 2023-01-27 Ambar Tristanyvon Sexton [facility] 23:17:00 Hospital ESTIMATED GFR 2023-01-27 Shivaniphilomena Tristan Sexton [facility] 23:17:00 Hospital ECG 12-LEAD 2023-01-27 Shivaniphilomena Tristanyvon Sexton [facility] 23:01:44 Hospital CBC WITH PLATELET AND 2023-01-[address] DIFFERENTIAL 15:26:00 [facility] OCCULT BLOOD, STOOL 2023-01-14 Geeta Gerber 13:56:00 [facility] LACTIC ACID LEVEL 2023-01-14 Geeta Gerber 08:21:00 [facility] PROCALCITONIN 2023-01-14 Geeta Gerber 08:21:00 [facility] BLOOD CULTURE, AEROBIC & 2023-01-14 Amelia Caal hodist ANAEROBIC 02:27:00 Hospital COVID-19 QUALITATIVE RT-PCR 2023-01-14 Amelia Caal 02:07:00 Hospital LACTIC ACID LEVEL - NOW AND 2023-01-14 Geeta Gerber ethodist REPEAT 2X EVERY 3 HOURS 02:07:00 [facility] [address] ABDOMEN PELVIS WO CONTRAST 2023-01-13 Amelia Caal 22:41:00 Hospital URINE CULTURE 2023-01-13 Amelia Caal 22:05:00 Hospital URINALYSIS SCREEN AND MICROSCOPY, 2023-01-13 Jose Caal WITH REFLEX TO CULTURE 22:05:00 Hospital TYPE AND SCREEN 2023-01-13 Amelia Caal 22:05:00 Hospital OCCULT BLOOD, STOOL 2023-01-13 Amelia Caal t 21:53:00 Hospital ECG ED PRELIMINARY INTERPRETATION 2023-01-13 Jose Caal 19:53:13 Hospital COMPREHENSIVE METABOLIC PANEL 2023-01-13 Amelia Caal 19:29:00 Hospital LACTIC ACID LEVEL - NOW AND 2023-01-13 Buzz Geeta Deven ethodist REPEAT 2X EVERY 3 HOURS 19:29:00 [facility] CBC WITH PLATELET AND 2023-01-13 Amelia Caal ist DIFFERENTIAL 19:29:00 Hospital PROTHROMBIN TIME WITH INR 2023-01-13 Amelia Caal thodist 19:29:00 Hospital PARTIAL THROMBOPLASTIN TIME (PTT) 2023-01-13 Jose Caal 19:29:00 Hospital LIPASE LEVEL 2023-01-13 Amelia Caal 19:29:00 Hospital ESTIMATED GFR 2023-01-13 Amelia Caal 19:29:00 Hospital ECG 12-LEAD 2023-01-13 JusticeriAmelia montejo 18:38:12 Hospital FERRITIN LEVEL 2022-11-24 Spring Joshi 05:00:00 Hospital TOTAL IRON BINDING CAPACITY 2022-11-24 Spring Joshi thodist 05:00:00 Hospital RETICULOCYTE COUNT 2022-11-24 Spring Joshi 05:00:00 Hospital URINALYSIS, AUTOMATED WITH 2022-11-05 Spring Joshi hodist MICROSCOPY 19:03:00 Hospital CBC WITH PLATELET AND 2022-11-05 Spring Joshi t DIFFERENTIAL 19:03:00 Hospital COMPREHENSIVE METABOLIC PANEL 2022-11-05 Spring Joshi 19:03:00 Hospital SEDIMENTATION RATE 2022-11-05 Spring Joshi 19:03:00 Hospital C-REACTIVE PROTEIN 2022-11-05 Spring Joshi 19:03:00 Hospital FL FLUORO NON-SPECIFIC UP TO 1 2022-08-25 Chaitanya Daniels [facility] HOUR 13:33:00 [facility] FUSION, JOINT, TOE 2022-08-[address] [facility] 11:49:00 [facility] CAPSULOTOMY, FOOT 2022-08-[address] [facility] 11:49:00 M [facility] PROCEDURE W/MINI C-ARM 2022-08-[address] [facility] 11:49:00 M [facility] POCT-GLUCOSE METER 2022-08-25 Brenden Daniels [facility] 10:37:00 M [facility] XR, knee, 3 view 2022-05-27 [facility] 00:00:00 [facility] CBC WITH PLATELET AND 2022-03-30 Spring Joshiis t DIFFERENTIAL 21:37:00 Hospital COMPREHENSIVE METABOLIC PANEL 2022-03-30 Spring Joshiist 21:37:00 Hospital C-REACTIVE PROTEIN 2022-03-30 Spring Joshi [facility] 21:37:00 Hospital SEDIMENTATION RATE 2022-03-30 Spring Joshi [facility] 21:37:00 Hospital URINALYSIS, AUTOMATED WITH 2022-03-30 Spring Joshi Met hodist MICROSCOPY 21:37:00 Hospital C3 COMPLEMENT COMPONENT 2022-03-30 Spring Joshi Method ist 21:37:00 Hospital DOUBLE-STRANDED DNA (DSDNA) 2022-03-30 Spring Joshi Me thodist ANTIBODIES, CRITHIDIA 21:37:00 Hospital SS-A AND SS-B ANTIBODY 2022-03-[address] 21:37:00 Hospital US RETROPERITONEAL COMPLETE 2020-05-26 Quita Kee Uni versity of 22:10:02 [facility] NOTICE OF BILLING PRACTICES FOR 2020-05-26 Doctor Ivan montejo [employer] [facility] MEDICARE PATIENTS 21:11:08 [place] [facility] PATIENT FINANCIAL POLICY 2020-05-26 Doctor Anguiano, [facility] 21:10:37 [place] [facility] NO SHOW OR MISSED APPOINTMENT 2020-05-26 Doctor Anguiano, [facility] POLICY ACKNOWLEDGEMENT 21:10:22 [place] [facility] NOTICE OF PRIVACY PRACTICES 2020-05-26 Doctor Anguiano, [employer] of 21:10:02 [place] [facility] CONSENT/REFUSAL FOR DIAGNOSIS AND 2020-05-26 Doctor Deepak nobles, [facility] TREATMENT 21:09:41 [place] [facility] ASSIGNMENT OF BENEFITS 2020-05-26 Doctor Unassigned, Kathy sity of 21:09:19 [place] [facility] CORONAVIRUS COVID-19 TESTING 2019-08-01 Raina Acosta Un iversity of 19:52:00 [facility] [facility] 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 Rotator cuff repair<sup>3</sup> [facility] Plan of Care Planned Activity Planned Date Details Comments Source Future Scheduled 2029-12-31 DTAP/TDAP/TD VACCINES [facility] 00:[facility]00 (2 - Tdap) [code = Medical C enter DTAP/TDAP/TD VACCINES (2 - Tdap)] Future Scheduled 2023-08-[address] [facility] Test 00:00:00 Counseling and Medical Cente r Screening (12+) [code = Tobacco Cessation Counseling and Screening (12+)] Future Scheduled 2023-03-03 Screening for [facility] Test 11:17:49 malignant neoplasm of colon (procedure) [code = 584908614] Future Scheduled 2023-03-03 Screening for [facility] Test 11:17:49 malignant neoplasm of colon (procedure) [code = 754534287] Future Scheduled 2023-03-03 DIABETES: RETINAL EYE Me [facility] Test 11:17:49 EXAM [code = DIABETES: RETINAL EYE EXAM] Future Scheduled 2023-03-03 DIABETIC FOOT EXAM [facility] Test 11:17:49 [code = DIABETIC FOOT EXAM] Future Scheduled 2023-03-03 SHINGLES VACCINES (1 Met [facility] Test 11:17:49 of 2) [code = SHINGLES VACCINES (1 of 2)] Future Scheduled 2023-03-03 BREAST CANCER [facility] Test 11:17:49 SCREENING [code = BREAST CANCER SCREENING] Future Scheduled 2023-03-03 HEPATITIS B VACCINES Met [facility] Test 11:17:49 (1 of 3 - Risk 3-dose series) [code = HEPATITIS B VACCINES (1 of 3 - Risk 3-dose series)] Future Scheduled 2023-03-03 COVID-19 VACCINE ([facility] 11:17:49 Pfizer risk series) [code = COVID-19 VACCINE (3 - Pfizer risk series)] Future Scheduled 2023-03-03 INFLUENZA VACCINE (#[facility]) [facility] 11:17[facility]49 [code = INFLUENZA VACCINE (#1)] Future Scheduled 2023-03-03 Screening for [facility] Test 11:17:49 malignant neoplasm of colon (procedure) [code = 011817968] Future Scheduled 2023-03-03 Screening for [facility] Test 11:17:49 malignant neoplasm of colon (procedure) [code = 657541614] Future Scheduled 2023-03-03 Screening for [facility] Test 11:17:49 malignant neoplasm of colon (procedure) [code = 052241247] Future Scheduled 2022-12-24 Influenza Vaccine (#1) [facility] 00[facility]00 [code = Influenza Medical Ce nter Vaccine (#1)] Future Scheduled 2022-04-[address] [facility] Test 00:00:00 (12+) [code = Medical Center DEPRESSION SCREENING (12+)] Future Scheduled 2022-04-25 FALLS RISK SCREENING [facility] Test 00:00:00 [code = FALLS RISK Medical C enter SCREENING] Future Scheduled 2020-08-13 COVID-19 VACCINE (3 - [facility]00 Pfizer risk series) Medical Center [code = COVID-19 VACCINE (3 - Pfizer risk series)] Future Scheduled 2019-05-13 PNEUMOCOCCAL 65+ YRS [facility] Test 00:00:00 (2 - PPSV23 if Medical Cente r available, else PCV20) [code = PNEUMOCOCCAL 65+ YRS (2 - PPSV23 if available, else PCV20)] Future Scheduled 2014-04-[address] [facility] 00:00:00 WELLNESS (YEAR 2 or Medical Center FIRST YEAR if no IPPE) [code = MEDICARE ANNUAL WELLNESS (YEAR 2 or FIRST YEAR if no IPPE)] Future Scheduled 1970-11-24 SHINGLES VACCINES ([address] [facility] 00:00:00 of 2) [code = SHINGLES Medic al Center VACCINES (1 of 2)] Future Scheduled [address] [facility] 00:[facility]:00 [facility] breast (procedure) [code = 043515222] Future Scheduled [address] [facility] 00:00:00 (combo) [code = CT Medical C enter Colonography (combo)] Future Scheduled [address] [facility] 00:00:00 [facility] colon (procedure) [code = 896138901] Future Scheduled [address] [facility] 00:00:00 malignant neoplasm of [facility] colon (procedure) [code = 615363730] Future Scheduled 1951 DXA SCAN [code = DXA [facility] Test 00:00:00 SCAN] [facility] Future Scheduled [address] [facility] 00:00:00 malignant neoplasm of [facility] colon (procedure) [code = 251844101] Future Scheduled [address] [facility] 00:00:00 malignant neoplasm of [facility] colon (procedure) [code = 273796149] Future Scheduled 1950 Sigmoidoscopy [code = [facility] 00:[facility] Sigmoidoscopy] Medical [facility] Encounters Start End Encounter Admission Attending Care Care Encounter Source Date/Time Date/Time Type Type Clinicians Facility Department ID 2023-03-03 Outpatient Melissa, [facility] [id number] Common 09:27:00 Monty [id number] [facility] 2022-12-15 Outpatient Melissa, [facility] [id number] Common 13:14:00 Monty [id number] [facility] 2022-02-04 Outpatient Melissa, [facility] [id number] Common 16:49:01 Monty [id number] [facility] 2022-02-01 Outpatient Melissa, [facility] [id number] Common 15:58:01 Monty [id number] [facility] 2021-05-20 Outpatient Melissa, [facility] [id number] Common 13:50:36 Monty [id number] [facility] 2023-03-03 2023-03-03 Telephone David, 1.2.840.1 [id number] Methodi 00:00:00 00:00:[address] 3.430.2.7 Hospit a .3.259519 l .8 2023-02-15 2023-02-15 Refill Catalino, 1.2.840.1 [id number] 29870 Methodi 00:00:00 00:00:00 Raza Treadwell [address]33.1.[address] 3.430.2.7 Hospit a .3.876543 l .8 2023-02-15 2023-02-15 Orders Brendan, 1.2.840.1 [id number] 4835 Methodi 00:00:00 00:00:00 Only Shayan 85032.1.[address] 3.430.2.7 Hospit a .3.141973 l .8 2023-02-11 2023-02-11 Refill Gaby, 1.2.840.1 [id number] 8303 Methodi 00:00:00 00:00:[address] 3.430.2.7 Hospit a .3.452587 l .8 2023-02-07 2023-02-07 Outpatient GC_TNC_Cher PRIV PRIV [id number] [facility] 00:00:00 00:00:00 ches_I 203223 Medica l 2023-02-04 2023-02-04 Outpatient GC_TNC_Cher PRIV PRIV 699 [id number] [facility] 00:00:00 00:00:00 ches_I 414894 Medica l 2023-01-27 2023-02-01 [facility] 1.2.840.1 [id number] Methodi 18:09:00 12:44:00 Odalis Ruiz 51507.1.[address] Garcia Kelly Solares 3.430.2.7 [facility] .3.322304 l Timi Castillo Natvarlal .8 2023-02-01 2023-02-01 Outpatient GC_TNC_Cher PRIV PRIV 699 [id number] [facility] 00:00:00 00:00:00 ches_I [id number] Medica l 2023-01-27 2023-02-01 Inpatient [facility] [id number] [address] [place] [address] 00:00:00 00:00:00 AMIKENY [address] 2023-01-31 2023-01-31 Anesthesia Del CidRamirez eddytor Sudeep 1.2.840.1 [id number] Methodi 14:18:00 16:14:00 Event Darling Kelley 18743.1.1 689 s t 3.430.2.7 Hospit a .3.886695 l .8 2023-01-31 2023-01-31 Surgery Ngozi, 1.2.840.1 [id number] 627410 2236 Methodi 13:00:00 14:00:[address] [facility] 3.430.2.7 Hospit a .3.571400 l .8 2023-01-29 2023-01-29 Anesthesia Speedy, 1.2.840.1 [id number] Methodi 11:19:00 11:54:00 Event Corey 42482.1.[address] Reji 3.430.2.7 Hospit a .3.551516 l .8 2023-01-29 2023-01-29 Surgery Adi, 1.2.840.1 [id number] 86860 12602 [facility]i 10:30:00 11:30:[address] 3.430.2.7 Hospit a .3.717341 l .8 2023-01-27 2023-01-27 Outpatient GC_TNC_Cher PRIV PRIV 699 [id number] [facility] 00:00:00 00:00:00 ches_I 270559 Medica l 2023-01-27 2023-01-27 Telephone Catalino 1.2.840.1 [id number] Methodi 00:00:00 00:00:[address] 3.430.2.7 Hospit a .3.702565 l .8 2023-01-21 2023-01-21 Outpatient GC_TNC_Cher PRIV PRIV 699 [id number] [facility] 00:00:00 00:00:00 ches_I 933672 Medica l 2023-01-21 2023-01-21 Telephone David, 1.2.840.1 [id number] [id number] [facility] 00:00:00 00:00:[address] 3.430.2.7 Hospit a .3.741293 l .8 2023-01-13 2023-01-15 Emergency Olman Calaelle Margot 1.2.840.1 10 [id number] [facility]i 13:39:00 18:08:00 Kelly Garcia 21320.1.[address] Castro Daksha [facility] 3.430.2.7 Hospita .3.578032 l .8 2023-01-13 2023-01-15 [facility] [id number] 983 [place] 00:00:00 00:00:[address] DAK[address] 2023-01-13 2023-01-13 Telephone David, 1.2.840.1 [id number] 184 [id number] Methodi 00:00:00 00:00:[address] 3.430.2.7 Hospit a .3.609739 l .8 2023-01-11 2023-01-11 Telephone David, 1.2.840.1 [id number] 231 [id number] Methodi 00:00:00 00:00:[address] 3.430.2.7 Hospit a .3.691105 l .8 2022-11-24 2022-11-29 Office Madelyn 1.2.840.1 [id number] 4669 [facility]i 14:00:00 00:24:08 Visit Spring Dunn.1.1 265 s t 3.430.2.7 Hospit a .3.992969 l .8 2022-11-24 2022-11-24 Outpatient MADELYN, [facility] [id number] 7[address] [place] 00:00:00 00:00:00 SPRING [address]azo [facility] 2022-11-01 2022-11-01 Refill Gaby, 1.2.840.1 [id number] 3719 [facility]i 00:00:00 00:00:[address] 3.430.2.7 Hospit a .3.391800 l .8 2022-10-29 2022-10-29 Outpatient FOG_A_Provi AOSM AOSM 591 [id number] Ev 00:00:00 00:00:00 monica [id number] [facility] 2022-10-19 2022-10-19 Outpatient GC_TNC_Cher PRIV PRIV 699 [id number] [facility] 00:00:00 00:00:00 ches_I 723649 Medica l 2022-10-15 2022-10-15 Outpatient GC_TNC_Cher PRIV PRIV 699 [id number] [facility] 00:00:00 00:00:00 ches_I 364166 Medica l 2022-10-15 2022-10-15 Outpatient GC_TNC_Cher PRIV PRIV 699 [id number] [facility] 00:00:00 00:00:00 ches_I 882516 Medica l 2022-10-13 2022-10-13 Outpatient FOG_A_Provi AOSM AOSM 591 [id number] Ev 00:00:00 00:00:00 monica 509263 [facility] 2022-10-12 2022-10-12 Outpatient GC_TNC_Cher PRIV PRIV 699 [id number] [facility] 00:00:00 00:00:00 ches_I 859722 Medica l 2022-10-11 2022-10-11 Refill Joshi, 1.2.840.1 [id number] 743138 7617 Methodi 00:00:00 00:00:00 Spring Pizano50.1.1 640 s t 3.430.2.7 Hospit a .3.353782 l .8 2022-10-07 2022-10-07 Outpatient GC_TNC_Cher PRIV PRIV 699 [id number] [facility] 00:00:00 00:00:00 ches_I [id number] Medica l 2022-09-24 2022-09-24 Outpatient FOG_A_Provi AOSM AOSM 591 [id number] Ev 00:00:00 00:00:00 monica 293185 [facility] 2022-09-14 2022-09-14 Refill Joshi, 1.2.840.1 [id number] 8934 [facility]i 00:00:00 00:00:00 Spring Mitchell 73771.1.1 991 s t 3.430.2.7 Hospit a .3.837798 l .8 2022-08-26 2022-08-26 Outpatient FOG_A_Provi AOSM AOSM 591 [id number] Ev 00:00:00 00:00:00 monica 316018 [facility] 2022-08-25 2022-08-25 [facility] [id number] 09:17:00 14:51:00 Encounter [facility] 2022-08-25 2022-08-25 Outpatient [facility] Surgery [id number] [facility] 09:17:00 14:51:00 [facility] 2022-08-25 2022-08-[address] [facility] [id number] 12:03:00 13:55:00 Event Belen Silva [facility] 2022-08-25 2022-08-25 Surgery [facility] [id number] 11:45:00 13:30:00 [facility] 2022-08-25 2022-08-25 Travel [facility] [id number] [facility] 00:00:00 00:00:00 [facility] 2022-08-23 2022-08-23 Outpatient [facility] [id number] [address] [place] [address] 10:26:40 23:59:00 2022-08-23 2022-08-23 [facility] [id number] [facility] 10:00:00 23:59:00 [facility] 2022-08-23 2022-08-23 Travel [facility] [id number] [facility] 00:00:00 00:00:00 [facility] 2022-08-20 2022-08-20 Outpatient FOG_A_Provi AOSM AO 591 [id number] Ev 00:00:00 00:00:00 monica [id number] [facility] 2022-08-10 2022-08-10 Refrandell Jo 1.2.840.1 [id number] 684403 8348 Methodi 00:00:00 00:00:[address] Letrice 3.430.2.7 Hospit a .3.989934 l .8 2022-07-27 2022-07-27 Jung Bae 1.2.840.1 [id number] 550 [id number] Methodi 00:00:00 00:00:00 Raza Treadwell [address] 3.430.2.7 Hospit a .3.523450 l .8 2022-07-16 2022-07-16 Outpatient FOG_A_Provi AOSM AO 591 [id number] Ev 00:00:00 00:00:00 monica 107319 [facility] 2022-07-14 2022-07-14 Refrandell Bae 1.2.840.1 [id number] 79879 16159 Methodi 00:00:00 00:00:00 Raza Treadwell [address] 3.430.2.7 Hospit a .3.257971 l .8 2022-07-05 2022-07-05 Outpatient GC_TNC_Cher PRIV PRIV 699 [id number] [facility] 00:00:00 00:00:00 ches_I 130372 Medica l 2022-07-05 2022-07-05 Outpatient GC_TNC_Cher PRIV PRIV 699 [id number] [facility] 00:00:00 00:00:00 ches_I 856445 Medica l 2022-07-05 2022-07-05 Refrandell Jo 1.2.840.1 [id number] 6759 Methodi 00:00:00 00:00:[address] Letrice 3.430.2.7 Hospit a .3.465850 l .8 2022-07-05 2022-07-05 Siva M [facility] 13 [facility] [address] GC_TNC_Sout [facility], Office* [address], [place] [address] , Ph. 2022-07-02 2022-07-02 Outpatient GC_TNC_Cher PRIV PRIV 699 [id number] [facility] 00:00:00 00:00:00 ches_I 604317 Medica l 2022-06-30 2022-06-30 Outpatient GC_TNC_Cher PRIV PRIV 699 [id number] [facility] 00:00:00 00:00:00 ches_I 761530 Medica l 2022-06-25 2022-06-25 Outpatient GC_TNC_Cher PRIV PRIV 699 [id number] [facility] 00:00:00 00:00:00 ches_I 074382 Medica l 2022-06-17 2022-06-17 Refill Yony Bae.2.840.1 [id number] 93099 88639 Methodi 00:00:00 00:00:00 Raza T[address] 3.430.2.7 Hospit a .3.111971 l .8 2022-06-11 2022-06-11 Outpatient FOG_A_Provi AOSM AO 591 [id number] Ev 00:00:00 00:00:00 monica 161523 [facility] 2022-05-27 2022-05-27 Jose Alberto Holman AOSM [place] - Ortho 591980 02 Ev 00:00:00 00:00:00 MD Julian: Brooklynn Brandon 09501 FOG_Ofc dic Profession [facility] al [address], [place] [address] , Ph. 2022-05-21 2022-05-21 Outpatient FOG_A_Provi AOSM AOSM 591 [id number] Ev 00:00:00 00:00:00 monica 171088 [facility] 2022-05-21 2022-05-21 Outpatient FOG_A_Provi AOSM AOSM 591 [id number] Ev 00:00:00 00:00:00 monica 439334 Orth[facility] Medic[facility] e 2022-05-21 2022-05-21 Outpatient FOG_A_Provi AOSM AOSM 591 [id number] Ev 00:00:00 00:00:00 monica 433901 [facility]op e [facility] e 2022-05-17 2022-05-17 Refill Catalino, 1.2.840.1 [id number] 79593 20732 Methodi 00:00:00 00:00:00 Raza T[address] 3.430.2.7 Hospit a .3.891393 l .8 2022-04-16 2022-04-16 Refill Catalino, 1.2.840.1 [id number] 13890 74561 Methodi 00:00:00 00:00:[address] Raza [address] 3.430.2.7 Hospit a .3.648320 l .8 2022-04-16 2022-04-16 Refrandell Griffin, 1.2.840.1 [id number] 191512 3057 Methodi 00:00:00 00:00:[address] 3.430.2.7 Hospit a .3.582001 l .8 2022-04-12 2022-04-12 Outpatient FOG_A_Provi AOSM AOSM 591 [id number] Ev 00:00:00 00:00:00 monica 520021 [facility] 2022-04-12 2022-04-12 Outpatient FOG_A_Provi AOSM AOSM 591 [id number] Ev 00:00:00 00:00:00 monica 811786 Orthop e dic Sports Medicin e 2022-04-12 2022-04-12 Outpatient FOG_A_Provi AOSM AOSM 591 [id number] Ev 00:00:00 00:00:00 monica 246955 Orthop e dic Sports Medicin e 2022-04-08 2022-04-08 Outpatient GC_TNC_Cher PRIV PRIV 699 [id number] [facility] 00:00:00 00:00:00 ches_I [id number] Medica l 2022-04-08 2022-04-08 Siva M [facility] [id number] [facility] 00:00[facility]00 [facility] [address] GC_TNC_[facility], Office* [address], [place] [address] , Ph. 2022-04-07 2022-04-07 Outpatient GC_TNC_Cher PRIV PRIV 699 [id number] [facility] 00:00:00 00:00:00 ches_I 884153 Medica l 2022-03-30 2022-03-30 Office Joshi, 1.2.840.1 [id number] 4256 Methodi 15:00:00 15:30:00 Visit Spring Mitchell 07713.1.1 809 s t 3.430.2.7 Hospit a .3.248439 l .8 2022-03-30 2022-03-30 Outpatient FOG_A_Provi AOSM AOSM 591 [id number] Ev 00:00:00 00:00:00 monica 535491 Orthop e dic Sports Medicin e 2022-03-30 2022-03-30 Travel 1.2.840.1 1.2.051.891 1067 599446 [facility]i 00:00:00 00:00:[address] 3.430.2.7 0.2.7.3.698 Ho spita .3.642038 084.8 l .8 2022-03-30 2022-03-30 Outpatient MADELYN, [facility] [id number] [address] [place] 00:00:00 00:00:00 SPRING [address] 2022-03-17 2022-03-17 Iraj Griffin, 1.2.840.1 [id number] 2448 Methodi 00:00:00 00:00:[address] 3.430.2.7 Hospit a .3.088185 l .8 2022-03-09 2022-03-09 Outpatient GC_TNC_Cher PRIV PRIV 699 [id number] [facility] 00:00:00 00:00:00 ches_I [id number] Medica l 2022-03-04 2022-03-04 Outpatient GC_TNC_Cher PRIV PRIV 699 [id number] [facility] 00:00:00 00:00:00 ches_I 327496 Medica l 2022-01-28 2022-01-28 Outpatient GC_TNC_Cher PRIV PRIV 699 [id number] [facility] 00:00:00 00:00:00 ches_I 481525 Medica l 2021-12-16 2021-12-16 Outpatient GC_TNC_Cher PRIV PRIV 699 [id number] [facility] 00:00:00 00:00:00 ches_I 798864 Medica l 2021-12-15 2021-12-15 Outpatient GC_TNC_Cher PRIV PRIV 699 [id number] [facility] 00:00:00 00:00:00 ches_I 421886 Medica l 2021-12-15 2021-12-15 [facility]iva M [facility] 00:00:00 00:00:00 Chris [facility] Med blade WARREN: [address] GC_TNC_Sout [facility], Office* [address], [place] [address] , Ph. 2021-12-15 2021-12-15 Outpatient MAITE Perez PRIV [id number] c04-2 00:00:00 00:00:00 Siva Carvalho [id number] 2021-12-14 2021-12-14 Outpatient GC_TNC_Cher PRIV PRIV 699 [id number] [facility] 00:00:00 00:00:00 ches_I [id number] Medica l 2021-12-08 2021-12-08 Outpatient GC_TNC_Cher PRIV PRIV 699 [id number] [facility] 00:00:00 00:00:00 ches_I [id number] Medica l 2021-09-15 2021-09-15 Outpatient GC_TNC_Cher PRIV PRIV 699 [id number] [facility] 04:41:00 04:41:00 ches_I 845677 Medica l 2021-09-15 2021-09-15 Siva Carvalho [facility] 00:00:00 00:00:00 Chris [facility] MD: [address] GC_TNC_Sout [facility], Office* [address], [place] [address] , Ph. 2021-09-15 2021-09-15 Outpatient Cherches, PRIV PRIV [id number] 00:00:00 00:00:00 Siva Carvalho [id number] 1941-05-20 2021-09-11 Outpatient GC_TNC_Cher PRIV PRIV 699 [id number] [facility] 12:47:00 12:47:00 ches_I 227009 Medica l 2021-09-10 2021-09-10 Outpatient GC_TNC_Cher PRIV PRIV 699 [id number] [facility] 05:10:00 05:10:00 ches_I 758501 Medica l 2021-09-07 2021-09-07 Outpatient GC_TNC_Cher PRIV PRIV 699 [id number] [facility] 06:03:00 06:03:00 ches_I 073630 Medica l 2021-06-11 2021-06-11 Outpatient GC_TNC_Cher PRIV PRIV 699 [id number] [facility] 04:55:00 04:55:00 ches_I 648510 Medica l 2021-06-11 2021-06-11 Outpatient Chris PRIV PRIV [id number] 00:00:00 00:00:00 Siva Carvalho [id number] 2021-06-11 2021-06-11 Siva Carvalho PRIV [facility] 00:00:00 00:00:00 Chris [facility] jr : [address] GC_TNC_Sout [facility], Office* [address], [place] [address] , Ph. 2021-06-09 2021-06-09 Outpatient GC_TNC_Cher PRIV PRIV 699 [id number] [facility] 11:18:00 11:18:00 ches_I 489885 Medica l 2021-05-28 2021-05-28 Outpatient GC_TNC_Cher PRIV PRIV 699 [id number] [facility] 11:06:00 11:06:00 ches_I 838341 Medica l 2021-05-27 2021-05-27 Outpatient GC_TNC_Cher PRIV PRIV 699 [id number] [facility] 12:40:00 12:40:00 ches_I [id number] Medica l 2021-05-26 2021-05-26 Outpatient GC_TNC_Cher PRIV PRIV 699 [id number] [facility] 03:31:00 03:31:00 ches_I 466276 Medica l 2021-05-22 2021-05-22 Outpatient GC_TNC_Cher PRIV PRIV 699 [id number] [facility] 05:05:00 05:05:00 ches_I 924132 Medica l 2021-05-21 2021-05-21 Outpatient GC_TNC_Cher PRIV PRIV 699 [id number] [facility] 11:20:00 11:20:00 ches_I 818022 Medica l 2021-05-20 2021-05-20 Outpatient GC_TNC_Cher PRIV PRIV 699 [id number] [facility] 06:25:00 06:25:00 ches_I [id number] Medica l 2021-05-14 2021-05-14 Outpatient GC_TNC_Cher PRIV PRIV 699 [id number] [facility] 03:44:00 03:44:00 ches_I [id number] Medica l 2021-04-15 2021-04-15 Outpatient SATKUNASIVA [facility] [id number] [place] 00:00:00 00:00:00 M, GURPREET [address] 2021-04-15 2021-04-15 Outpatient [facility]SIV[facility] [id number] [place] 00:00:00 00:00:00 M, GURPREET 769 Method i 2021-04-15 2021-04-15 Outpatient [facility]SIVA [facility] [id number] [place] 00:00:00 00:00:00 M, GURPREET 934 Method i 2021-04-15 2021-04-15 Outpatient [facility]NASIVA [facility] [id number] [place] 00:00:00 00:00:00 M, GURPREET 157 Method i 2021-03-05 2021-03-05 Outpatient JOSHI, [facility] [id number] [place] 00:00:00 00:00:00 SPRING 401 [facility] 2021-01-29 2021-01-29 Outpatient CATALINO, [facility] [id number] [place] 00:00:00 00:00:00 RAZA 560 [facility] 2021-01-26 2021-01-26 Outpatient CATALINO, [facility] [id number] [place] 00:00:00 00:00:00 RAZA 377 [facility] 2020-12-04 2020-12-04 Outpatient JOSHI, [facility] [id number] [place] 00:00:00 00:00:00 SPRING 945 [facility] 2020-10-23 2020-10-23 Outpatient [facility] [id number] [place] 00:00:00 00:00:00 888 [facility] 2020-10-10 2020-10-10 Outpatient LIZETH CHAVIS [facility] [id number] [facility] 15:00:00 15:00:00 ity [facility] 2020-09-04 2020-09-04 Outpatient JOSHI, [facility] [id number] [place] 00:00:00 00:00:00 SPRING [address] 2020-09-04 2020-09-04 Outpatient JOSHI, [facility] [id number] [place] 00:00:00 00:00:00 SPRING [address] 2020-08-11 2020-08-11 Telephone [facility] [id number] [facility] 00:00:00 00:00:00 Dasha [facility] [id number] [facility] [place] [id number] Missael as Professio [phone] [facility] nal [address] [place] [address] Office [facility] 2020-08-11 2020-08-11 Telephone [facility] [id number] 00:00:00 00:00:00 Dasha J [facility] [id number] [place] [id number] Professio [phone] [place] [address] Office [address] [facility] 2020-08-10 2020-08-10 [facility] [id number] [facility] 00:00:00 00:00:00 Dasha J [facility] [id number] [facility] [place] [id number] Missael as Professio [phone] Oh dicnd nal [address] [place] [address] Office [facility] 2020-08-10 2020-08-10 [facility] [id number] 00:00:00 00:00:00 Dasha J [facility] [id number] [place] [id number] Professio [phone] [place] [address] [facility] 2020-08-08 2020-08-08 Laboratory Lab, [facility] Pob I [facility] [id number]. [id number] [facility] 16:17:18 16:37:18 Only Anene, [facility] [id number] [facility] [place] [id number] Missael as Professio [phone] Oh dical nal [address] [place] [address] Office [facility] 2020-08-08 2020-08-08 Laboratory Lab, [facility] [id number] 16:17:18 16:37:18 Only Fam Pob I Health [id number] [place] [id number] [facility] [phone] nal 044 Office [facility] 2020-08-08 2020-08-08 Outpatient Manda MORELAND, [facility] [id number] [facility] 16:20:00 16:20:00 ANEUDY beltran [facility] 2020-07-16 2020-07-16 Outpatient DIANE, [facility] [id number] [place] 00:00:00 00:00:00 TITA 702 Me thodi 2020-06-25 2020-06-25 Outpatient [facility] [id number] [place] 00:00:00 00:00:00 502 [facility] 2020-06-03 2020-06-03 Outpatient MADELYN, [facility] [id number] [place] 00:00:00 00:00:00 SPRING 015 [facility] 2020-05-28 2020-05-28 Outpatient CATALINO, [facility] [id number] [place] 00:00:00 00:00:00 RAZA 287 [facility] 2020-05-26 2020-05-26 [facility] [id number] [facility] 15:00:00 23:59:00 Encounter Quita Bean [id number] devin [facility] [id number] [facility] [phone] [address] 2020-05-26 2020-05-26 [facility] [id number] 15:00:00 23:59:00 Encounter Quita Bean 350.1.13.10 [place] 4.2.7.2.686 [place] [id number] [facility] 2020-05-26 2020-05-26 Outpatient Manda KEE, [facility] [id number] [facility] 00:00:00 00:00:00 QUITA beltran [facility] 2020-05-23 2020-05-23 Outpatient CATALINO, [facility] [id number] [place] 00:00:00 00:00:00 RAZA 104 [facility] 2020-05-22 2020-05-22 Outpatient CATALINO, [facility] [id number] [place] 00:00:00 00:00:00 RAZA 106 Method i 2019-10-29 2019-10-29 Outpatient AGLIECO, [facility] [id number] [place] 00:00:00 00:00:00 QUITA 741 Method i 2019-10-29 2019-10-29 Outpatient CATALINO, [facility] [id number] [place] 00:00:00 00:00:00 RAZA 156 Method i 2019-10-08 2019-10-08 Outpatient [facility] [id number] 146 [place] 00:00:00 00:00:00 394 Method i 2019-08-09 2019-08-09 Outpatient JOSHI, [facility] [id number] 230 [place] 00:00:00 00:00:00 SPRING 363 Method i 2019-08-03 2019-08-03 Telephone Karla, [facility] [id number] [facility] 00:00:00 00:00:00 Raina [facility] 350.1.13.10 i ty of [place] 4.2.7.2.686 Missael as Professio [phone] Oh dicnd nal [address] [place] [address] Office Building [facility] 2019-08-03 2019-08-03 [facility] [id number] 00:00:00 00:00:00 Raina A [facility] 350.1.13.10 [place] 4.2.7.2.686 Professio [phone] nal [facility] Office Building [facility] 2019-08-02 2019-08-02 [facility]phone [facility] [id number] [facility] 00:00:00 00:00:00 [facility] 350.1.13.10 it y of [place] 4.2.7.2.686 Missael as Professio [phone] Oh dical nal [address] Office Building [facility] 2019-08-02 2019-08-02 [facility] [id number] 00:00:00 00:00:00 [facility] 350.1.13.10 [place] 4.2.7.2.686 Professio [phone] [place] [address] Office Building One 2019-08-01 2019-08-01 Urgent Pob1, Acute Care [facility] 1. [id number] Univers 14:44:29 16:09:59 Care [place] [id number] [facility] 4.2.7.2.686 Missael as Professio [phone] Oh dical [address] Office Building One 2019-08-01 2019-08-01 Urgent Pob1, Acute [facility] [id number] 14:44:29 16:09:59 [facility] 350.1.13.10 [place] 4.2.7.2.686 Professio [phone] nal [facility] Office Building One 2019-08-01 2019-08-01 Outpatient R KEENAN [facility] [id number] [facility] 14:40:00 14:40:00 [facility] 2017-01-10 2017-01-12 Inpatient [facility] [id number] [place] 10:10:00 18:00:00 r Martinez [address] [facility] 2017-01-10 2017-01-12 Outpatient Brandon [facility] [id number] 05:10:00 13:00:00 Justin O 2015-05-30 2015-05-30 OBS Day [facility] [id number] [place] 12:30:00 18:35:00 Surgery r Martinez [address] [facility] 2015-05-30 2015-05-30 Outpatient Brandon [facility] [id number] 06:30:00 12:35:00 Justin O 2015-02-28 2015-02-28 OBS Day [facility] [id number] [place] 12:35:00 20:10:00 Surgery r Martinez [address] [facility] 2015-02-28 2015-02-28 Outpatient Brandon [facility] [id number] 975 06:35:00 14:10:00 Justin O 00 Results Test Description Test Time Test Comments Results Result Comments Source Surgical pathology request 2023-02-03 21:17:55 Test Item Value Reference Range Interpretation Comme nts Case number (test code = 5104128) [id number] Surgical pathology report (test code = See link below for PDF Lab R eport 5194) Result status (test code = 9025245) This is Final Report for [id number] 7804-25 [facility] [id number] 21:19:00 Test Item Value Reference Range Interpretation Comments POC glucose (test code 144 mg/dL 65-99 H Opera tor Name: Tememe = 52967-4) BrittanyJoyce ID: [id number] able: [facility] 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 Interpretation Abnormal (test code = 26952-9) [facility] [id number] 09:57:00 Test Item Value Reference Range Interpretation Comments Urine culture Mixed fab Specimen isolate (test <=10-3 col/cc InformationSp ecimen code = 75699-8) Source: Urin eSpecimen Site[facility] [id number] 21:29:43 Test Item Value Reference Range Interpretation Comments Ventricular rate (test 66 code = 253) Atrial rate (test code 66 = 255) NE interval (test code 176 = 266) QRSD interval (test 92 code = 260) QT interval (test code 438 = 264) QTC interval (test code 459 = 265) P axis 1 (test code = 69 267) QRS axis 1 (test code = 47 268) T wave axis (test code 53 = 270) EKG impression (test Normal sinus code = 273) rhythm-Normal ECG-In automated comparison with ECG of 13-JAN-2023 13:38,-No significant change was found- [facility] CenterInfluenza virus A and B [id number] 22:47:50 Test Item Value Reference Range Interpretation Comments SARS-CoV-2 (COVID-19) RNA Not detected [Presence] in Respiratory specimen by MAURICE with probe detection (test code = 00654-2) Whether patient resides in a No congregate care setting (test code = 79703-5) Date and time of symptom onset Unknown (test code = 33545-7) Whether the patient was No hospitalized for condition of interest (test code = 84071-9) Whether the patient was admitted No to intensive care unit (ICU) for condition of interest (test code = 35727-4) Whether patient is employed in a No healthcare setting (test code = 55543-1) Whether the patient has symptoms No related to condition of interest (test code = 69096-9) status (test code = No 09560-6) KAVON HERNANDEZ BWOJIDIR-KeV-2 (COVID-19) RNA [Presence] in Respiratory specimen by MAURICE with probe [id number] 22:19:36 Test Item Value Reference Range Interpretation Comments SARS-CoV-2 (COVID-19) RNA Not detected [Presence] in Respiratory specimen by MAURICE with probe detection (test code = 50599-7) Whether patient is employed in a No healthcare setting (test code = 55236-7) Whether the patient has symptoms Yes related to condition of interest (test code = 78829-0) Whether the patient was No hospitalized for condition of interest (test code = 93451-8) Whether the patient was admitted No to intensive care unit (ICU) for condition of interest (test code = 34386-0) Whether patient resides in a No congregate care setting (test code = 95319-0) status (test code = No 37591-9) Date and time of symptom onset Unknown (test code = 16163-2) KAVON GAMBOAFerritin [id number] 15:33:00 Test Item Value Reference Range Interpretation Comments Ferritin level (test 10 ng/mL 16-288 L code = 2276-4) RAC (test code = RAC) Performing Organization Information: Site ID: RGA Name: [facility] Lab Address: [address] [place] [phone] Director: Madyson Rubin Lab Interpretation (test Abnormal code = 50706-2) [facility]anism HospitalReticulocyte [id number] 15:33:00 Test Item Value Reference Range Interpretation Comments Retic count, manual 2.6 % (test code = 18416-0) Retic absolute, auto 26338 See_Comment H [Autom ated (test code = message] The 56196-6) system which generated this result transmitted reference range : 20,000 - 80,000 cells/uL. The reference range was not used to interpret this result as normal/abnormal . RAC (test code = Performing RAC) Organization Information: Site ID: [facility] Name: [employer] Lab Address: [address] [place] [address] Director: Madyson Rubin Lab Interpretation Abnormal (test code = 01450-5) [facility] iron binding scejwdcu1512-07-34 15:33:00 Test Item Value Reference Range Interpretation Comments Iron level (test 36 See_Comment L [Automated code = 2498-4) message] The system which generated this result transmitted reference range : 45 - 160 mcg/dL . The reference range was not used to interpr et this result as normal/abnormal . Iron binding 382 See_Comment [Automated capacity (test code message] The = 2500-7) system which generated this result transmitted reference range : 250 - 450 mcg/d L (calc). The reference range was not used to interpret this result as normal/abnormal . Iron saturation 9 See_Comment L [Automated (test code = 2502-3) message ] The system which generated this result transmitted reference range : 16 - 45 % (calc ). The reference range was not used to interpr et this result as normal/abnormal . RAC (test code = Performing RAC) Organization Information: Site ID: [facility] Name: [employer] [facility] Lab Address: [address] [place] [address] Director: Madyson Rubin Lab Interpretation Abnormal (test code = 12188-1) [facility] CenterC-reactive yqzoyne4092-38-71 17:06:00 Test Item Value Reference Range Interpretation Comments CRP (test code = 2.2 mg/L <=8.0 1988-5) YUNIOR (test code = FASTING:NO FASTING: NO YUNIOR) RAC (test code = Performing Organization RAC) Information: Site ID: [facility] Name: [facility] Lab Address: [address] [place] [phone] Director: Madyson Rubin [facility] Indianaedimentation [id number] 17:06:00 Test Item Value Reference Range Interpretation Comments Sedimentation rate 9 mm/h See_Comment [Automat ed (test code = 4537-7) message ] The system which generated this result transmitted reference range : < OR = 30. The reference range was not used to interpret this result as normal/abnormal . YUNIOR (test code = FASTING:NO YUNIOR) FASTING: NO RAC (test code = Performing RAC) Organization Information: Site ID: RGA Name: [facility] ServicesY[facility]cd[facility] Lab Address: [address] [place] [phone] Director: Madyson Hernandez [facility] HospitalUrinalysis, automated with [id number] 17:06:00 Test Item Value Reference Range Interpretation Comments Color, UA (test YELLOW YELLOW code = 5778-6) Appearance, UA CLEAR CLEAR (test code = 5767-9) Specific gravity, 1.004 1.001-1.035 UA (test code = 5811-5) pH, UA (test code 6.0 5.0-8.0 = 5803-2) Glucose, UA (test NEGATIVE NEGATIVE code = 97555-2) Bilirubin, UA NEGATIVE NEGATIVE (test code = 5770-3) Ketones, UA (test NEGATIVE NEGATIVE code = 2514-8) Blood, UA (test NEGATIVE NEGATIVE code = 5794-3) Protein, UA (test NEGATIVE NEGATIVE code = 12745-5) Nitrite, UA (test NEGATIVE NEGATIVE code = 5802-4) Leukocyte NEGATIVE NEGATIVE esterase, UA (test code = 5799-2) WBC, UA (test NONE SEEN See_Comment [Automated code = 5821-4) message] The system which generated this result transmit hamilton reference range : < OR = 5 /HPF. Th e reference range was not used to interpret this result as normal/abnormal . RBC, UA (test NONE SEEN See_Comment [Automated code = 36663-4) message] The system which generated this result transmit hamilton reference range : < OR = 2 /HPF. Th e reference range was not used to interpret this result as normal/abnormal . Squamous NONE SEEN See_Comment [Automated epithelial cells, message] T he UA (test code = system which 10950-3) generated this result transmit hamilton reference range : < OR = 5 /HPF. Th e reference range was not used to interpret this result as normal/abnormal . Bacteria, UA NONE SEEN NONE SEEN /HPF (test code = 5769-5) Hyaline casts, UA NONE SEEN NONE SEEN /LPF (test code = 5796-8) Note: (test code This urine was = 8251-1) analyzed for th e presence of WBC , RBC, bacteria, casts, and othe r formed elements . Only those elements seen w ere reported. YUNIOR (test code = FASTING:NO FASTING: YUNIOR) NO RAC (test code = Performing RAC) Organization Information: Site ID: RODNEY Name: [facility] Lab Address: [address] [place] [address] Director: Madyson Oviedo [facility] Medical CenterFL, FLUORO, NON-SPECIFIC, UP TO 1 [id number] 13:33:00 Referring: Dr. Monty Torres Reason for exam:->[facility] : 1950 Sex: FAn imaging unit was utilized for this procedure. No radiologist interpretation was requested. Refer to the EMR for findings. Refer to PACS for any patient radiation dose information.POC-Glucose [id number] 10:49:34 Test Item Value Reference Range Interpretation Comments POC-Glucose Meter (test 92 mg/dL 70-110 : TE STED AT [facility] code = 1538) [facility]0 [facility] 7 30: Ornamental Brick Installer/Techni jose m ID = [id number] for Skip Bourgeois Lab Interpretation (test Normal code = 27300-7) [facility] ParkPOCT-GLUCOSE [id number] 10:49:34 Test Item Value Reference Range Interpretation Comments POC-GLUCOSE METER 92 mg/dL 70-110 : TESTED A T [facility] 7200 (BEAKER) (test code = [place] [facility] A, 1538) [place] 7703 0: Ornamental Brick Installer/Techni jose m ID = [id number] for Narv as, Matheusg C4 complement [id number] 19:14:00 Test Item Value Reference Range Interpretation Comments C4 complement (test 15 mg/dL 15-57 code = 4498-2) YUNIOR (test code = YUNIOR) FASTING:NO FASTING: NO RAC (test code = RAC) Performing Organization Information: Site ID: RGA Name: [facility] Lab Address: [address] [place] [address] Director: [place] [address] complement [id number] 19:14:00 Test Item Value Reference Range Interpretation Comments C3 complement (test 98 mg/dL 83-193 code = 4485-9) YUNIOR (test code = YUNIOR) FASTING:NO FASTING: NO RAC (test code = RAC) Performing Organization Information: Site ID: RGA Name: [facility] Lab Address: [address] [place] [address] Director: [facility] Shawuble-Stranded DNA (dsDNA) antibodies, [id number] 19:14:00 Test Item Value Reference Range Interpretation Comments dsDNA Ab, Crithidia NEGATIVE NEGATIVE ([employer]) (test code = 6457-6) YUNIOR (test code = YUNIOR) FASTING:NO FASTING: NO RAC (test code = RAC) Performing Organization Information: Site ID: EZ Name: [facility], Address: [address] [place] [phone] Director: Kaye Mendieta MD,PhD,JENIFER Yarsanism HospitalSSA/SSB [id number] 19:14:00 Test Item Value Reference Range Interpretation Comments Sjogren's SS-A <1.0 NEG See_Comment [Automated antibody (test message] The code = 77873-9) system which generated this result transmit hamilton reference range : <1.0 NEG AI. Th e reference range was not used to interpret this result as normal/abnormal . Sjogren's SS-B <1.0 NEG See_Comment [Automated antibody (test message] The code = 83561-9) system which generated this result transmit hamilton reference range : <1.0 NEG AI. Th e reference range was not used to interpret this result as normal/abnormal . YUNIOR (test code = FASTING:NO FASTING: YUNIOR) NO RAC (test code = Performing RAC) Organization Information: Site ID: IG Name: [facility] Lab Address: [address] [place] [address] Director: Dr. Cade Hernandez [facility] Centerm and Sm/SOCIAL MEDIA DEVELOPER [id number] 19:14:00 Test Item Value Reference Range Interpretation Comments Diaz antibody <1.0 NEG See_Comment [Automated (test code = message] The 62402-0) system which generated this result transmit hamilton reference range : <1.0 NEG AI. Th e reference range was not used to interpret this result as normal/abnormal . SOCIAL MEDIA DEVELOPER-SM interp <1.0 NEG See_Comment [Automated (test code = message] The 74913-1) system which generated this result transmit hamilton reference range : <1.0 NEG AI. Th e reference range was not used to interpret this result as normal/abnormal . YUNIOR (test code = FASTING:NO FASTING: YUNIOR) NO RAC (test code = Performing RAC) Organization Information: Site ID: IG Name: [facility] Lab Address: [address] [place] [phone] Director: Dr. Cade SommerARS-CoV-2 (COVID-19) RNA [Presence] in Respiratory specimen by MAURICE with probe [id number] 17:39:21 Test Item Value Reference Range Interpretation Comments SARS-CoV-2 (COVID-19) RNA Not detected Not-Detected [Presence] in Respiratory specimen by MAURICE with probe detection (test code = 19495-3) Whether patient is employed in a healthcare setting (test code = 36070-2) Whether the patient has symptoms related to condition of interest (test code = 38673-0) Patient was hospitalized because of this condition (test code = 19345-7) Whether the patient was admitted to intensive care unit (ICU) for condition of interest (test code = 37654-7) Whether patient resides in a congregate care setting (test code = 06625-5) KAVON GALLAGHER RETROPERITONEAL [id number] 22:32:22No renal mass is identified. If highly [...] mass identified on in the right kidney. Anisoechoicarea in the mid kidney may represent hypertrophy of column of Henrik. LEFT KIDNEY: Length of 10.7 cm. Normal cortical thickness and echotexture.No hydronephrosis. Scattered echogenic foci within parenchyma may representfat or pointed calcification. The parenchymal blood flow is grossly normalon color Doppler mapping. BLADDER: Unremarkable. [facility], Radiant Results Inft User - 05/26/2020 4:33 PMCSTUS RETROPERITONEAL COMPLETE 05/26/2020 3:29 PMHISTORY: Renal mass Please comment on the renal bloodflow if possible..Patient reports growing right renal mass.COMPARISON: None.FINDINGS: RIGHT KIDNEY: Length of 12.0 cm. Normal cortical thickness and echotexture.No hydronephrosis. The parenchymal bloodflow is grossly normal on colorDoppler mapping. No mass identified on in the right kidney. An isoechoicarea in the mid kidney may represent hypertrophy of column of Henrik.LEFT KIDNEY: Length of 10.7 cm. Normal cortical thickness and echotexture.No hydronephrosis. Scattered echogenic foci within parenchyma may representfat or pointed calcification. The parenchymal blood flow is grossly normalon colorDoppler mapping. BLADDER: Unremarkable.IMPRESSIONNo renal mass is identified. If highly suspicious for renal mass, across-sectional imaging can be performed.[facility] HospitalSARS-CoV-2 (COVID-19) RNA [Presence] in Respiratory specimen by MAURICE with probe [id number] 19:48:19 Test Item Value Reference Range Interpretation Comments SARS-CoV-2 (COVID-19) RNA Not detected Not-Detected [Presence] in Respiratory specimen by MAURICE with probe detection (test code = 71622-5) KAVON HERNANDEZ [facility]ON[facility]US COVID-19 [id number] 02:42:00 Test Item Value Reference Range Interpretation Comments SARS-CoV-2 (test code = Not Detected Not Detected 77471-6) YUNIOR (test code = YUNIOR) YAZUO SARS-CoV-2 kit is used for this assay. It is a real-time (rt) reverse transcriptase (RT) polymerase chain reaction (PCR) test intended for the qualitative detection of nucleic acid from the SARS-CoV-2 in nasopharyngeal (RESIDENTIAL SUPERVISOR) and oropharyngeal (OP) swabs. It is used [...] decisions. Lab Interpretation Normal (test code = 31151-2) [facility] HospitalHEPATITIS B SURFACE [id number] 14:42:00 Test Item Value Reference Range Interpretation Comments HEPATITIS B SURFACE ANTIBODY < mIU/mL <8.0 (BEAKER) (test code = 647) HEPATITIS A ANTIBODY, [id number] 14:42:00 Test Item Value Reference Range Interpretation Comments HEPATITIS A IGG ANTIBODY (BEAKER) Reactive Nonreactive A (test code = 2797) HEPATITIS B SURFACE [id number] 14:23:00 Test Item Value Reference Range Interpretation Comments HEPATITIS B SURFACE ANTIGEN (2) Nonreactive Nonreactive (BEAKER) (test code = 2585) HEPATITIS C [id number] 14:23:00 Test Item Value Reference Range Interpretation Comments HEPATITIS C ANTIBODY (BEAKER) Nonreactive Nonreactive (test code = 367) HEPATITIS B CORE ANTIBODY, [id number] 14:23:00 Test Item Value Reference Range Interpretation Comments HEPATITIS B CORE TOTAL ANTIBODY Nonreactive Nonreactive (BEAKER) (test code = 497) HEPATIC FUNCTION [id number] 14:04:00 Test Item Value Reference Range Interpretation [...] = 30 U/L 6-55 347) BASIC METABOLIC [id number] 14:04:00 Test Item Value Reference Range Interpretation [...] NOT APPLICABLE FOR DIALYSIS PATIEN TS. PROTHROMBIN TIME/[id number] 13:45:00 Test Item Value Reference Range Interpretation Comments PROTIME (BEAKER) (test code = 13.4 seconds 11.7-14.7 759) INR (BEAKER) (test code = 370) 1.0 <=5.9 RECOMMENDED COUMADIN/WARFARIN INR THERAPY RANGESSTANDARD DOSE: 2.0 - 3.0 Includes: PROPHYLAXIS for venous thrombosis, systemic embolization; TREATMENT for venous thrombosis and/or pulmonary embolus.HIGH RISK: Target INR is 2.5-3.5 for patients with mechanical heart valves.CBC W/PLT COUNT & AUTO [id number] 13:31:00 Test Item Value Reference Range Interpretation [...] (BEAKER) (test code = 2801) COMPREHENSIVE METABOLIC [id number] 12:54:00 Test Item Value Reference Range Interpretation [...] PATIEN TS. CBC W/PLT COUNT & AUTO [id number] 12:23:00 Test Item Value Reference Range Interpretation [...] 0-1 PERCENT (BEAKER) (test code = 2801) [id number] 09:56:00 Test Item Value Reference Range Interpretation Comments Platelet (test code = Platelet) 157 133-450 [facility] HospitalWtacxvuDORAGEAYKF8231-21-00 09:56:00 Test Item Value Reference Range Interpretation Comments Hct (test code = Hct) 26.3 36.0-48.0 [facility] HospitalVxsjmeyUFDMYGOJWF3017-65-55 09:56:00 Test Item Value Reference Range Interpretation Comments Hgb (test code = Hgb) 9.2 12.0-16.0 [facility]2017-09-19 09:50:00 Test Item Value Reference Range Interpretation Comments eGFR (test code = eGFR) 96 [facility]2017-09-19 09:50:00 Test Item Value Reference Range Interpretation Comments CO2 (test code = CO2) 24 24-32 [facility]2017-09-19 09:50:00 Test Item Value Reference Range Interpretation Comments Calcium Lvl (test code = Calcium Lvl) 8.1 8.5-10.5 [place] [id number] 09:50:00 Test Item Value Reference Range Interpretation Comments Creatinine Lvl (test code = Creatinine 0.60 0.50-1.40 Lvl) [facility]2017-09-19 09:50:00 Test Item Value Reference Range Interpretation Comments AGAP (test code = AGAP) 15.0 10.0-20.0 [facility]2017-09-19 09:50:00 Test Item Value Reference Range Interpretation Comments BUN (test code = BUN) 6 7-22 [facility]2017-09-19 09:50:00 Test Item Value Reference Range Interpretation Comments Glucose Lvl (test code = Glucose Lvl) 131 70-99 [facility]2017-09-19 09:50:00 Test Item Value Reference Range Interpretation Comments Potassium Lvl (test code = Potassium 4.0 3.5-5.1 Lvl) [facility]2017-09-19 09:50:00 Test Item Value Reference Range Interpretation Comments Sodium Lvl (test code = Sodium Lvl) 134 135-145 [facility]2017-09-19 09:50:00 Test Item Value Reference Range Interpretation Comments Chloride Lvl (test code = Chloride Lvl) 99 95-109 [facility] HospitalHfqptchNKFOGUWSBT0718-06-03 09:50:00 Test Item Value Reference Range Interpretation Comments INR (test code = INR) 1.07 0.85-1.17 [facility] HospitalDhhsnrfCFJVAQJMNP2411-20-55 09:50:00 Test Item Value Reference Range Interpretation Comments PT (test code = PT) 14.1 s 12.0-14.7 [facility] Ho[id number] 09:50:00 Test Item Value Reference Range Interpretation Comments WBC (test code = WBC) 8.9 3.7-10.4 [facility]DteidwnRZVNUBEPLS5983-50-23 09:50:00 Test Item Value Reference Range Interpretation Comments RBC (test code = RBC) 2.92 4.20-5.40 [facility] HospitalFeluqgnMPNNGPAZNQ2541-04-61 09:50:00 Test Item Value Reference Range Interpretation Comments Hgb (test code = Hgb) 8.9 12.0-16.0 [facility] HospitalSzgfdfjNPXUVOHAUI9859-11-24 09:50:00 Test Item Value Reference Range Interpretation Comments MCV (test code = MCV) 88.3 80.0-98.0 [facility] HospitalDazhyqnSWFQGBYQDO0975-98-61 09:50:00 Test Item Value Reference Range Interpretation Comments Hct (test code = Hct) 25.8 36.0-48.0 [facility] HospitalSwxwfeyWQUBQADGCA9361-52-98 09:50:00 Test Item Value Reference Range Interpretation Comments RDW (test code = RDW) 15.4 11.5-14.5 [facility] HospitalUgutnxjQHNFYDIKGH7835-54-87 09:50:00 Test Item Value Reference Range Interpretation Comments MCHC (test code = MCHC) 34.6 32.0-36.0 [facility] HospitalSjejlceUXBETQTQZI3626-81-31 09:50:00 Test Item Value Reference Range Interpretation Comments Platelet (test code = Platelet) 161 133-450 [facility] HospitalCpvwztlCXJYWQGNPU0641-08-35 09:50:00 Test Item Value Reference Range Interpretation Comments MCH (test code = MCH) 30.6 pg 27.0-31.0 [facility] HospitalWsevhkrIPJWERMPJP9222-56-33 09:50:00 Test Item Value Reference Range Interpretation Comments MPV (test code = MPV) 8.5 7.4-10.4 [facility] HospitalGuedjiqNPQBHCZJZQ7341-05-04 09:50:00 Test Item Value Reference Range Interpretation Comments Segs-Bands # (test code = Segs-Bands #) 5.4 1.5-8.1 [facility] HospitalHfiogexXVLQYRKCFC3040-40-06 09:50:00 Test Item Value Reference Range Interpretation Comments Lymphocytes # (test code = Lymphocytes 1.8 1.0-5.5 #) [facility] HospitalZcdwhobIGESPDOGFQ3493-95-06 09:50:00 Test Item Value Reference Range Interpretation Comments Monocytes # (test code = Monocytes #) 1.6 <=0.8 [facility] HospitalCzukfqpNQIFEZCQYQ1863-99-49 09:50:00 Test Item Value Reference Range Interpretation Comments Eosinophils # (test code = Eosinophils 0.1 <=0.5 #) [facility] HospitalTpfcimbAEBPUUGICD9548-69-74 09:50:00 Test Item Value Reference Range Interpretation Comments Eosinophils (test code = Eosinophils) 0.6 <=4.0 [facility] HospitalVnkliprOAXXNKAVII4242-95-99 09:50:00 Test Item Value Reference Range Interpretation Comments Basophils (test code = Basophils) 0.4 <=1.0 [facility] HospitalLsdnrbyROKNAYCPOR0785-87-61 09:50:00 Test Item Value Reference Range Interpretation Comments Plt Morph (test code = Normal (01/11/17 4:50 Plt Morph) AM) [facility] HospitalMylcuhtFZTKHQQKZM4632-78-97 09:50:00 Test Item Value Reference Range Interpretation Comments RBC Morph (test code = Normal (01/11/17 4:50 RBC Morph) AM) [facility] HospitalXkehvuoBUIZIYDSKT1913-11-01 09:50:00 Test Item Value Reference Range Interpretation Comments Segs (test code = Segs) 61.3 45.0-75.0 [facility] HospitalJoajrhbLWFKUEXCVG9484-88-01 09:50:00 Test Item Value Reference Range Interpretation Comments Monocytes (test code = Monocytes) 17.5 2.0-12.0 [facility] HospitalZhiyiftNYMVTLIJDI5263-12-27 09:50:00 Test Item Value Reference Range Interpretation Comments Lymphocytes (test code = Lymphocytes) 20.2 20.0-40.0 [facility]AjyswliNUJTKJXZLCSG3600-12-57 10:38:00 Test Item Value Reference Range Interpretation Comments AGAP (test code = AGAP) 7.8 10.0-20.0 [facility]XxasyyoWRKUZIAEZBFB7847-70-10 10:38:00 Test Item Value Reference Range Interpretation Comments eGFR (test code = eGFR) 91 [facility] HospitalBniaijgYSWAQWVSPCBQ6066-36-49 10:38:00 Test Item Value Reference Range Interpretation Comments Calcium Lvl (test code = Calcium Lvl) 8.9 8.5-10.5 [facility] HospitalTwlisflFDNQPNCNRGSI6928-86-95 10:38:00 Test Item Value Reference Range Interpretation Comments CO2 (test code = CO2) 31 24-32 [facility] HospitalPmmhrcwBQBYRNGWTJDU1119-05-44 10:38:00 Test Item Value Reference Range Interpretation Comments Chloride Lvl (test code = Chloride Lvl) 97 95-109 [facility] HospitalInenmmxFZUXXXELLLAZ4212-30-48 10:38:00 Test Item Value Reference Range Interpretation Comments Potassium Lvl (test code = Potassium 3.8 3.5-5.1 Lvl) [facility] HospitalVallcorPRYBFOOYAQWD4417-10-35 10:38:00 Test Item Value Reference Range Interpretation Comments Sodium Lvl (test code = Sodium Lvl) 132 135-145 [facility] HospitalKbliudmEHRADAFMKHCC6810-79-17 10:38:00 Test Item Value Reference Range Interpretation Comments Glucose Lvl (test code = Glucose Lvl) 95 70-99 [facility] HospitalYftldvdGXFRJNPSAQBE1636-35-38 10:38:00 Test Item Value Reference Range Interpretation Comments Creatinine Lvl (test code = Creatinine 0.70 0.50-1.40 Lvl) [facility] HospitalUzrbtubVFYJFUWVTQRF8504-69-38 10:38:00 Test Item Value Reference Range Interpretation Comments BUN (test code = BUN) 6 7-22 [facility] HospitalGoqtfwiMPJZWBSAWF8279-83-10 10:38:00 Test Item Value Reference Range Interpretation Comments RDW (test code = RDW) 15.4 11.5-14.5 [facility] HospitalKttjjejDYNGECASXS3964-92-37 10:38:00 Test Item Value Reference Range Interpretation Comments Platelet (test code = Platelet) 197 133-450 [facility] HospitalBsdmpueSAEHHLWRMU1159-82-42 10:38:00 Test Item Value Reference Range Interpretation Comments WBC (test code = WBC) 4.7 3.7-10.4 [facility] HospitalVhembkhNWEAZFFYBZ9337-97-09 10:38:00 Test Item Value Reference Range Interpretation Comments MCH (test code = MCH) 30.4 pg 27.0-31.0 [facility] HospitalJbagsblMSJFOFXYOY9156-93-05 10:38:00 Test Item Value Reference Range Interpretation Comments MCV (test code = MCV) 87.3 80.0-98.0 [facility] HospitalMqlgxhtTJWINCPUZY8219-65-09 10:38:00 Test Item Value Reference Range Interpretation Comments Hct (test code = Hct) 36.9 36.0-48.0 [facility] HospitalTgvsredQICCINAAZZ2356-14-94 10:38:00 Test Item Value Reference Range Interpretation Comments RBC (test code = RBC) 4.23 4.20-5.40 [facility] HospitalFzjfokaEYNCNOUNGY7724-42-74 10:38:00 Test Item Value Reference Range Interpretation Comments Hgb (test code = Hgb) 12.9 12.0-16.0 [facility] HospitalZgteohpBXSGOGWVBK8607-94-95 10:38:00 Test Item Value Reference Range Interpretation Comments MCHC (test code = MCHC) 34.8 32.0-36.0 [facility] HospitalRxjiersYCAXCXFTZO2302-59-40 10:38:00 Test Item Value Reference Range Interpretation Comments MPV (test code = MPV) 7.9 7.4-10.4 [facility] HospitalWhyxireEXXORLOFMV9648-68-26 10:38:00 Test Item Value Reference Range Interpretation Comments Eosinophils (test code = Eosinophils) 6.4 <=4.0 [facility] HospitalUrcnjvaXZEXWXNSXO9796-94-76 10:38:00 Test Item Value Reference Range Interpretation Comments Monocytes (test code = Monocytes) 20.6 2.0-12.0 [facility] HospitalMysfgbuIJCELPHMWH4319-02-75 10:38:00 Test Item Value Reference Range Interpretation Comments Lymphocytes (test code = Lymphocytes) 38.0 20.0-40.0 [facility] HospitalDmyycybCWGOISVWRR6927-49-01 10:38:00 Test Item Value Reference Range Interpretation Comments Segs-Bands # (test code = Segs-Bands #) 1.6 1.5-8.1 [facility] HospitalAfydovpHBOFQIPNHN7795-41-17 10:38:00 Test Item Value Reference Range Interpretation Comments Basophils (test code = Basophils) 1.4 <=1.0 [facility] HospitalHddvvxbMSTUBNJLOS0262-09-97 10:38:00 Test Item Value Reference Range Interpretation Comments Eosinophils # (test code = Eosinophils 0.3 <=0.5 #) [facility] HospitalNnuzuomMVRSPWVBOX5785-57-19 10:38:00 Test Item Value Reference Range Interpretation Comments Lymphocytes # (test code = Lymphocytes 1.8 1.0-5.5 #) [facility] HospitalUmmphsbGUQHQIXJNS2718-86-47 10:38:00 Test Item Value Reference Range Interpretation Comments Monocytes # (test code = Monocytes #) 1.0 <=0.8 [facility] HospitalGxqwabhEPFLRBEAWQ6387-99-48 10:38:00 Test Item Value Reference Range Interpretation Comments Basophils # (test code = Basophils #) 0.1 <=0.2 [facility] HospitalXeixskxVGJZGDAYMH3433-72-74 10:38:00 Test Item Value Reference Range Interpretation Comments Plt Morph (test code = Normal (01/10/17 5:38 Plt Morph) AM) [facility] HospitalBavltglXHEEKUQEOK8018-53-06 10:38:00 Test Item Value Reference Range Interpretation Comments RBC Morph (test code = Normal (01/10/17 5:38 RBC Morph) AM) [facility] HospitalVchltcrCWMQZYHXWA8886-98-26 10:38:00 Test Item Value Reference Range Interpretation Comments Segs (test code = Segs) 33.6 45.0-75.0 [facility] AND [id number] 10:38:00 Test Item Value Reference Range Interpretation Comments UA Sq Epi (test code = None Seen (01/10/17 5:38 UA Sq Epi) AM) [facility] AND [id number] 10:38:00 Test Item Value Reference Range Interpretation Comments UA Leuk Est (test code Small *ABN*(01/10/17 = UA Leuk Est) 5:38 AM) [facility] AND [id number] 10:38:00 Test Item Value Reference Range Interpretation Comments UA WBC (test code = UA WBC) 1 <=5 [facility] AND [id number] 10:38:00 Test Item Value Reference Range Interpretation Comments UA Nitrite (test code Negative (01/10/17 5:38 = UA Nitrite) AM) [facility] AND [id number] 10:38:00 Test Item Value Reference Range Interpretation Comments UA Bili (test code = Negative *NA*(01/10/17 UA Bili) 5:38 AM) [facility] AND [id number] 10:38:00 Test Item Value Reference Range Interpretation Comments UA Blood (test code = Negative (01/10/17 5:38 UA Blood) AM) [facility] AND [id number] 10:38:00 Test Item Value Reference Range Interpretation Comments UA Urobilinogen (test code = UA 0.2 0.1-1.0 Urobilinogen) [facility] AND [id number] 10:38:00 Test Item Value Reference Range Interpretation Comments UA Color (test code = Yellow *NA*(01/10/17 UA Color) 5:38 AM) [facility] AND [id number] 10:38:00 Test Item Value Reference Range Interpretation Comments UA pH (test code = UA pH) 7.0 1 5.0-8.0 [facility] AND [id number] 10:38:00 Test Item Value Reference Range Interpretation Comments UA Protein (test code Negative (01/10/17 5:38 = UA Protein) AM) [facility] AND [id number] 10:38:00 Test Item Value Reference Range Interpretation Comments UA Ketones (test code Negative *NA*(01/10/17 = UA Ketones) 5:38 AM) [facility] AND [id number] 10:38:00 Test Item Value Reference Range Interpretation Comments UA Glucose (test code Negative (01/10/17 5:38 = UA Glucose) AM) [facility] AND [id number] 10:38:00 Test Item Value Reference Range Interpretation Comments UA Turbidity (test code = Clear (01/10/17 5:38 UA Turbidity) AM) [facility] AND [id number] 10:38:00 Test Item Value Reference Range Interpretation Comments UA Spec Grav (test code *NA*(01/10/17 5:38 AM) = UA Spec Grav) [facility] HospitalSEDIMENTATION [id number] 15:52:00 Test Item Value Reference Range Interpretation Comments SEDIMENTATION RATE, ERYTHROCYTE 48 mm/HR 0-30 H (BEAKER) (test code = 766) COMPREHENSIVE METABOLIC [id number] 14:48:00 Test Item Value Reference Range Interpretation [...] PATIEN TS. CBC W/PLT COUNT & AUTO [id number] 14:36:00 Test Item Value Reference Range Interpretation [...] K/ L 0.00-0.20 (test code = 417) [facility].00[id number] 12:51:00 Test Item Value Reference Range Interpretation Comments POC BUN (test code = POC BUN) 7 7-22 [facility]2016-02-05 12:51:00 Test Item Value Reference Range Interpretation Comments POC Hematocrit (test code = POC 43.0 36.0-48.0 Hematocrit) [facility]2016-02-05 12:51:00 Test Item Value Reference Range Interpretation Comments POC Glucose (test code = POC Glucose) 124 70-99 [facility]2016-02-05 12:51:00 Test Item Value Reference Range Interpretation Comments POC Sodium (test code = POC Sodium) 132 135-145 [facility]2016-02-05 12:51:00 Test Item Value Reference Range Interpretation Comments POC Chloride (test code = POC Chloride) 93 95-109 [facility]2016-02-05 12:51:00 Test Item Value Reference Range Interpretation Comments POC Potassium (test code = POC 4.1 3.5-5.1 Potassium) [facility]2016-02-05 12:51:00 Test Item Value Reference Range Interpretation Comments POC Hemoglobin (test code = POC 14.6 12.0-16.0 Hemoglobin) [facility]2015-11-06 13:20:00 Test Item Value Reference Range Interpretation Comments POC BUN (test code = POC BUN) 9 7-22 [facility]2015-11-06 13:20:00 Test Item Value Reference Range Interpretation Comments POC Chloride (test code = POC Chloride) 95 95-109 [facility]2015-11-06 13:20:00 Test Item Value Reference Range Interpretation Comments POC Potassium (test code = POC 4.9 3.5-5.1 Potassium) [facility]2015-11-06 13:20:00 Test Item Value Reference Range Interpretation Comments POC Sodium (test code = POC Sodium) 133 135-145 [facility]2015-11-06 13:20:00 Test Item Value Reference Range Interpretation Comments POC Hematocrit (test code = POC 44.0 36.0-48.0 Hematocrit) [facility]2015-11-06 13:20:00 Test Item Value Reference Range Interpretation Comments POC Hemoglobin (test code = POC 15.0 12.0-16.0 Hemoglobin) [facility]2015-11-06 13:20:00 Test Item Value Reference Range Interpretation Comments POC Glucose (test code = POC Glucose) 106 70-99 [facility] HospitalOwtnbdoKCULAQBIUI2025-97-74 13:18:00 Test Item Value Reference Range Interpretation Comments POC INR (test code = POC INR) 1.0 0.9-1.2 [facility] HospitalEfmopxlNLFQYRKVUS2005-68-07 13:18:00 Test Item Value Reference Range Interpretation Comments POC PT (test code = POC PT) 11.9 s 12.0-14.7 [facility]
[2023-03-03 16:36] LABS: Absolute Lymphocytes (CBC) 0.6 K/uL (0.7-4.9); Hematocrit 30.5 % (36.0-45.0); Lymphocytes % 35.9 % (15.3-44.8); MPV 7.2 fL (7.6-11.3); Platelets 270 thou/uL (152-406); RBC Red Blood Cell Count 3.35 M/uL (3.86-4.86)
[2023-03-03 17:25] LABS: Potassium 3.5 mEq/L (3.5-5.1)
[2023-03-03 17:32] LABS: Blood Morphology Comment NOT SEEN (NOT SEEN); Platelet Estimate ADEQ
--- NOTE | 2023-03-03 17:46 | ER ---
Nurse's Notes [facility] Name: Linda Miramontes Age: 72 yrs Sex: Female : 1950 Arrival Date: 03/03/2023 Time: 14:28 Bed DIS5 Private MD: Kristian Torres V Diagnosis: Anemia, unspecified;Essential (primary) hypertension Presentation: 03/03 14:42 Coronavirus screen: Vaccine status: Patient reports being unvaccinated. Coronavirus kd3 screen: Vaccine status: Patient reports receiving the 2nd dose of the covid vaccine. Ebola Screen: No symptoms or risks identified at this time. Initial Sepsis Screen: Does the patient meet any 2 criteria? No. Patient's initial sepsis screen is negative. Does the patient have a suspected source of infection? No. Patient's initial sepsis screen is negative. Risk Assessment: Do you want to hurt yourself or someone else? Patient reports no desire to harm self or others. Onset of symptoms was March 03, 2023. 14:42 Method Of Arrival: Ambulatory kd3 14:44 Chief complaint: Patient states: I have been bleeding for over a year. I have been kd3 bleeding rectally. I was in the hospital last month and i was told that i have pre cancerous polyps and a gastric ulcer. They let me go when i stopped bleeding but it has started up again. I have black stools and was told to come here to get my levels checked. 14:44 Acuity: JOBY 3 kd3 Triage Assessment: 14:43 General: Appears in no apparent distress. Behavior is calm, cooperative. Pain: Denies kd3 pain. Historical: - Allergies: 14:43 Bactrim (Facial Swelling); kd3 14:43 Codeine; kd3 - PMHx: 14:43 Cirrhosis; Lupus; Raynauds; autoimmune hepatitis; Pneumonia; Migraines; Hypertension; kd3 Polio; Hepatitis; Irritable bowel syndrome; Diabetes - NIDDM; GERD; Sepsis; Crohn's Disease; Sjogrenes; - Immunization history:: Adult Immunizations up to date. - Social history:: Smoking status: Patient denies any tobacco usage or history of. Screenin:57 [facility] ED Fall Risk Assessment (Adult) Score/Fall Risk Level 0 - 2 = Low Risk. Abuse iw screen: Denies threats or abuse. Denies injuries from another. Nutritional screening: No deficits noted. Tuberculosis screening: No symptoms or risk factors identified. Assessment: 15:20 General: Appears in no apparent distress. Behavior is calm, cooperative. Neuro: Level iw of Consciousness is awake, alert, obeys commands, Oriented to person, place, time, situation. Respiratory: Respiratory effort is even, unlabored, Respiratory pattern is regular. Derm: Skin is intact. 16:28 Reassessment: Patient appears in no apparent distress at this time. Patient and/or iw family updated on plan of care and expected duration. Pain level reassessed. Patient is alert, oriented x 3, equal unlabored respirations, skin warm/dry/pink. Vital Signs: 14:41 Pulse 78; Resp 16; Temp 98.1(TE); Pulse Ox 96% ; Weight 81.65 kg; Height 5 ft. 6 in. ; kd3 14:44 BP 140 / 71; kd3 14:41 Body Mass Index 29.05 (81.65 kg, 167.64 cm) kd3 ED Course: 14:30 Patient arrived in ED. mr 14:30 Kristian Torres MD is Private Physician. mr 14:43 Arm band placed on right wrist. kd3 14:46 Triage completed. kd3 15:00 Patient has correct armband on for positive identification. Provided Education on: . iw 15:06 Carl Garza DO is Attending Physician. ms3 17:46 Kristian Torres MD is Referral Physician. ms3 17:57 No provider procedures requiring assistance completed. IV discontinued, intact, iw bleeding controlled, No redness/swelling at site. Pressure dressing applied. 17:58 Mandy Velarde, RN is Primary Nurse. iw Administered Medications: No medications were administered Medication: 15:20 VIS not applicable for this client. iw Outcome: 17:46 Discharge ordered by . ms3 17:57 Discharged to home ambulatory, iw 17:57 Condition: good 17:57 Discharge instructions given to patient, Instructed on discharge instructions, follow up and referral plans. Demonstrated understanding of instructions, follow-up care, 17:58 Patient left the ED. iw Signatures: Naina Mg, Reg Reg mr Mandy Velarde, RN RN iw Carl Garza DO DO ms3 Leigh Conrad RN RN kd3
--- NOTE | 2023-03-03 17:46 | EDPHYS ---
Physician Documentation [facility] Name: Linda Miramontes Age: 72 yrs Sex: Female : 1950 Arrival Date: 03/03/2023 Time: 14:28 Bed DIS5 Private MD: Kristian Torres V ED Physician Carl Garza HPI: 03/03 15:13 This 72 yrs old Female presents to ER via Ambulatory with complaints of Rectal ms3 Bleeding. 15:13 72-year-old female with past medical history of cirrhosis, lupus, Raynaud's, autoimmune ms3 hepatitis, pneumonia, migraines, hypertension presents to the emergency department for rectal bleeding that has been ongoing for 1 year. Patient states she spoke with her physician Dr. Kaye at [facility] who instructed her to go to the emergency department to have her hemoglobin checked. Patient denies pain at this time.. Historical: - Allergies: 14:43 Bactrim (Facial Swelling); kd3 14:43 Codeine; kd3 - PMHx: 14:43 Cirrhosis; Lupus; Raynauds; autoimmune hepatitis; Pneumonia; Migraines; Hypertension; kd3 Polio; Hepatitis; Irritable bowel syndrome; Diabetes - NIDDM; GERD; Sepsis; Crohn's Disease; Sjogrenes; - Immunization history:: Adult Immunizations up to date. - Social history:: Smoking status: Patient denies any tobacco usage or history of. ROS: 15:13 Constitutional: Negative for fever, and chills. Neck: Negative for injury, pain, and ms3 swelling, Cardiovascular: Negative for chest pain, and palpitations. Respiratory: Negative for shortness of breath, cough, wheezing, and pleuritic chest pain, MS/Extremity: Negative for injury and deformity, Skin: Negative for injury, rash, and discoloration, 15:13 All other systems are negative, 15:13 Abdomen/GI: Positive for rectal bleeding, ms3 Exam: 15:13 Constitutional: This is a well developed, well nourished patient who is awake, alert, ms3 and in no acute distress. Head/Face: Normocephalic, atraumatic. Chest/axilla: Normal chest wall appearance and motion. Nontender with no deformity. Cardiovascular: Regular rate and rhythm with a normal S1 and S2. No gallops, murmurs, or rubs. Normal PMI, no JVD. No pulse deficits. Respiratory: Lungs have equal breath sounds bilaterally, clear to auscultation and percussion. No rales, rhonchi or wheezes noted. No increased work of breathing, no retractions or nasal flaring. Abdomen/GI: Soft, non-tender, with normal bowel sounds. No distension or tympany. No guarding or rebound. No evidence of tenderness throughout. Skin: Warm, dry with normal turgor. Normal color with no rashes, no lesions, and no evidence of cellulitis. Vital Signs: 14:41 Pulse 78; Resp 16; Temp 98.1(TE); Pulse Ox 96% ; Weight 81.65 kg; Height 5 ft. 6 in. ; kd3 14:44 BP 140 / 71; kd3 14:41 Body Mass Index 29.05 (81.65 kg, 167.64 cm) kd3 MDM: 15:13 Patient medically screened. ms3 15:13 Differential diagnosis: Peptic ulcer disease versus anemia versus hypertension. ms3 17:46 Data reviewed: vital signs, nurses notes, lab test result(s), and as a result, I will ms3 discharge patient. Care significantly affected by the following chronic conditions: Hypertension. Counseling: I had a detailed discussion with the patient and/or guardian regarding the historical points, exam findings, and any diagnostic results supporting the discharge/admit diagnosis, lab results, the need for outpatient follow up, to return to the emergency department if symptoms worsen or persist or if there are any questions or concerns that arise at home. Special discussion: I discussed with the patient/guardian in detail that at this point there is no indication for admission to the hospital. It is understood, however, that if the symptoms persist or worsen the patient needs to return immediately for re-evaluation. ED course: Discussed labs with patient. Patient states her hemoglobin usually is around 10 and her white blood count is at baseline. Patient states she is comfortable with discharge home. Patient instructed to follow-up with her physician at [facility]. All questions were answered. Return precautions discussed include worsening symptoms, lightheadedness, shortness of breath, rectal bleeding, or any other concerns.. 03/03 15:13 Order name: CBC with Diff; Complete Time: 17:40 ms3 03/03 15:13 Order name: BMP; Complete Time: 17:40 ms3 03/03 17:32 Order name: Manual Differential; Complete Time: 17:40 EDMS Administered Medications: No medications were administered Disposition Summary: 03/03/23 17:46 Discharge Ordered Notes: Location: Home ms3 Condition: Stable ms3 Diagnosis - Anemia, unspecified ms3 - Essential (primary) hypertension ms3 Followup: ms3 - With: Kristian Torres MD - When: 2 - 3 days - Reason: Recheck today's complaints Discharge Instructions: - Discharge Summary Sheet ms3 - Anemia ms3 - Hypertension, Adult ms3 Forms: - Medication Reconciliation Form ms3 - Thank You Letter ms3 - Antibiotic Education ms3 - Prescription Opioid Use ms3 - Patient Portal Instructions ms3 - Leadership Thank You Letter ms3 Signatures: Dispatcher [employer] EDMS Carl Garza DO DO ms3 Leigh Conrad, RN RN kd3 Corrections: (The following items were deleted from the chart) 15:15 15:13 Constitutional: Negative for fever, and chills. Neck: Negative for injury, pain, ms3 and swelling, Cardiovascular: Negative for chest pain, and palpitations. Respiratory: Negative for shortness of breath, cough, wheezing, and pleuritic chest pain, Abdomen/GI: Negative for abdominal pain, nausea, vomiting, diarrhea, and constipation, MS/Extremity: Negative for injury and deformity, Skin: Negative for injury, rash, and discoloration, ms3
[2023-03-03 18:31] VITALS: BP 140/71
[2023-03-03 18:36] VITALS: TEMP 100.6; O2SAT 98
== END 2023-03-03 17:58 | disposition home or self-care (01) ==
LOC: ER 14:28
DX: D64.9 Anemia, unspecified (principal); I10 Essential (primary) hypertension; K74.60 Unspecified cirrhosis of liver; E11.9 Type 2 diabetes mellitus without complications; Z88.1 Allergy status to other antibiotic agents; Z88.5 Allergy status to narcotic agent
CPT/HCPCS: 36415; 80048; 85025; 99283

== ENCOUNTER 2023-03-30 09:38 | Emergency (ER) | payer OTHER ==
[2023-03-30] MEDS ORDERED: MORPHINE 4 MG/ML SYR ONE (10:17)
[2023-03-30] MEDS ORDERED: KETOROLAC 30 MG/ML INJ ONE (10:17)
[2023-03-30] MEDS ORDERED: ONDANSETRON 4 MG/2 ML VIAL ONE (10:17)
--- NOTE | 2023-03-30 11:14 | RAD REPORT ---
EXAM DESCRIPTION: CT - Chest Abd Pelvis Wo Con - 03/30/2023 10:04 am CLINICAL HISTORY: Chest and abdomen pain. trauam COMPARISON: THORAX WO CONTRAST dated 04/06/2010; THORAX W CONTRAST dated 08/08/2006; Abdomen Pelvis W/Wo Contrast dated 11/09/2022 TECHNIQUE: Thin axial CT images of the chest, abdomen, and pelvis, performed without IV contrast. Mu ltiplanar reformats were generated and reviewed. All CT scans are performed using dose optimization technique as appropriate and may include automated exposure control or mA/KV adjustment according to patient size. FINDINGS: The lungs are clear.No pleural or pericardial effusion.No intrathoracic adenopathy. Stable exophytic left superior pole 1.2 cm solid renal lesion. The liver, spleen, pancreas, adrenal g lands and kidneys are otherwise within normal limits. Status post cholecystectomy. At least moderate fluid distention of the gastric fundus. No bowel obstruction, free air, free fluid or abscess. Mild colonic diverticulosis. Normal appendix. No pathologic lymphadenopathy in the abdom en or pelvis. Mild superior endplate compression deformity at T12, appears new compared to the prior CT. No signifi cant retropulsion although there is mild buckling of the posterior cortex at that level. Stable infer ior endplate compression deformity at L1, and mild central superior endplate compression wedge deform ity at T9. Grade 1 spondylolisthesis at L5-S1, stable in degree. IMPRESSION: Mild superior endplate compression deformity at T12, appears new compared to the prior C T. No significant retropulsion although there is mild buckling of the posterior cortex at that level. No other acute findings. Other stable findings, including a stable exophytic left superior pole 1.2 c m solid renal lesion.
--- NOTE | 2023-03-30 11:29 | ER ---
[facility] Name: Linda Miramontes Age: 72 yrs Sex: Female : 1950 Arrival Date: 03/30/2023 Time: 09:38 Bed 4 Private MD: Kristian Torres V Diagnosis: Mechanical fall;T12 compression fracture Presentation: 03/30 09:47 Chief complaint: Patient states: Tripped on rug Tuesday. Fell onto buttocks. Severe ll1 pelvic/hip pain since. Gait steady. Coronavirus screen: Client denies travel out of the [place] in the last 14 days. At this time, the client does not indicate any symptoms associated with coronavirus-19. Ebola Screen: Patient denies travel to an Ebola-affected area in the 21 days before illness onset. Initial Sepsis Screen: Does the patient meet any 2 criteria? No. Patient's initial sepsis screen is negative. Does the patient have a suspected source of infection? Yes: Bone or joint infection. Risk Assessment: Do you want to hurt yourself or someone else? Patient reports no desire to harm self or others. Onset of symptoms was March 28, 2023. 09:47 Method Of Arrival: Ambulatory ll1 09:47 Acuity: JOBY 3 ll1 11:47 Care prior to arrival: None. Mechanism of Injury: Fall. Trauma event details: Injury me1 occurred: at home. Historical: - Allergies: 09:49 Bactrim (Facial Swelling); ll1 09:49 Codeine; ll1 - PMHx: 09:49 Diabetes - NIDDM; Lupus; Irritable bowel syndrome; Pneumonia; Migraines; Hypertension; ll1 Raynauds; Hepatitis; GERD; Crohn's Disease; Polio; autoimmune hepatitis; Cirrhosis; Sepsis; Sjogrenes; - Immunization history:: Adult Immunizations up to date. - Social history:: Smoking status: Patient denies any tobacco usage or history of. - Immunization history: Last tetanus immunization: - up to date. - Family history:: not pertinent. Screenin:[facility] ED Fall Risk Assessment (Adult) History of falling in the last 3 months, me1 including since admission Yes- single mechanical fall (1 pt) Confusion or Disorientation No (0 pts) Intoxicated or Sedated No (0 pts) Impaired Gait No (0 pts) Mobility Assist Device Used No (0 pt) Altered Elimination No (0 pt) Score/Fall Risk Level 0 - 2 = Low Risk Maintained a safe environment, Educated pt \T\ family on fall prevention, incl call for assistance when getting out of bed, Provided non-skid footwear, Hourly rounding (assess needs \T\ fall precautionary measures) done. Abuse screen: Denies threats or abuse. Nutritional screening: No deficits noted. Tuberculosis screening: No symptoms or risk factors identified. Primary Survey: 10:33 NO uncontrolled hemorrhage observed. Breathing/Chest: Spontaneous respiratory effort, me1 equal unlabored respirations, breath sounds clear bilaterally, regular pattern, symmetrical chest rise and fall. Respiratory effort: spontaneous, unlabored, Breath sounds: clear, bilaterally. Circulation: No external hemorrhage present. Regular and strong central pulse, skin warm/dry/normal color. Disability Pupils are equal, round, reactive to light and accommodation. Client is alert. Exposure/Environment: There is no evidence of uncontrolled external bleeding. No obvious injuries are noted at this time. A warming method has been applied: A warm blanket has been provided to the patient. Reassessment Alertness and Airway: Awake and alert. The airway is patent. Airway Patent Breathing: Spontaneous respiratory effort, equal unlabored respirations, breath sounds clear bilaterally, regular pattern with symmetrical chest rise and fall. Respiratory effort Spontaneous Unlabored Breath sounds Clear Circulation: No external hemorrhage noted. Regular and strong central pulse, skin warm/dry/normal color. Disability: Pupils Pupils are equal, round, reactive to light and accomodation. Alert. Assessment: 10:33 General: Appears uncomfortable, well groomed, well developed, well nourished, Behavior me1 is calm, cooperative, appropriate for age, Reports Tripped on rug Tuesday. Fell onto buttocks. Severe posterior pelvic/hip pain since. Gait steady. Pain: Complains of pain in posterior pelvis and lower back Pain does not radiate. Pain currently is 10 out of 10 on a pain scale. Quality of pain is described as aching, Pain began suddenly, Is continuous. Neuro: Level of Consciousness is awake, alert, obeys commands, Oriented to person, place, time, situation, Appropriate for age. Cardiovascular: Capillary refill < 3 seconds Patient's skin is warm and dry. Respiratory: Airway is patent Respiratory effort is even, unlabored, Respiratory pattern is regular, symmetrical. Musculoskeletal: Reports pain in posterior pelvis and lower back. Vital Signs: 09:47 BP 133 / 58; Pulse 88; Resp 18; Temp 97.3; Pulse Ox 100% ; Weight 81.65 kg; Height 5 ll1 ft. 6 in. ; Pain 10/10; 10:32 BP 141 / 68; Pulse 80; Resp 18; Pulse Ox 100% on R/A; me1 11:45 BP 138 / 69; Pulse 80; Resp 16; Pulse Ox 96% on R/A; me1 09:47 Body Mass Index 29.05 (81.65 kg, 167.64 cm) ll1 09:47 Pain Scale: Adult ll1 [place] Coma Score: 10:33 Eye Response: spontaneous(4). Motor Response: obeys commands(6). Verbal Response: me1 oriented(5). Total: 15. Trauma Score (Adult): 10:33 Eye Response: spontaneous(1); Verbal Response: oriented(1); Motor Response: obeys me1 commands(2); Systolic BP: > 89 mm Hg(4); Respiratory Rate: 10 to 29 per min(4); [place] Score: 15; Trauma Score: 12 ED Course: 09:40 Patient arrived in ED. rg4 09:40 Kristian Torres MD is Private Physician. rg4 09:42 Damaso Lux MD is Attending Physician. rt 09:49 Triage completed. ll1 09:49 Arm band placed on Patient placed in an exam room, on a stretcher. ll1 09:58 Amelia Rodriguez, ASHWIN is Primary Nurse. me1 10:06 CT Chest Abdomen Pelvis W/O Contrast In Process Unspecified. EDMS 10:33 Patient has correct armband on for positive identification. Bed in low position. Call me1 light in reach. Side rails up X 1. Provided Education on: POC. Verbalized understanding. . 10:33 No provider procedures requiring assistance completed. me1 10:33 Patient maintains SpO2 saturation greater than 95% on room air. me1 11:26 Kristian Torres MD is Referral Physician. rt 11:47 Thermoregulation: warm blanket given to patient. me1 11:53 IV discontinued, intact, bleeding controlled, No redness/swelling at site. Pressure me1 dressing applied. Administered Medications: 10:31 Drug: Ondansetron IVP 4 mg IVP once; over 2 minutes Route: IVP; Site: right antecubital;me1 11:54 Follow up: Response: No adverse reaction; Nausea is decreased me1 10:31 Drug: Ketorolac IVP 15 mg IVP once Route: IVP; Site: right hand; me1 11:54 Follow up: Response: No adverse reaction; Pain is decreased me1 10:32 Drug: morphine IVP or IV 4 mg IVP once over 4 mins Route: IVP; Infused Over: 4 mins; me1 Site: right hand; 11:54 Follow up: Response: No adverse reaction; Pain is decreased me1 Medication: 10:33 VIS not applicable for this client. me1 Outcome: 10:33 Patient's length of stay was not longer than 2 hours. me1 11:28 Discharge ordered by . rt 11:53 Discharged to home ambulatory, me1 11:53 Condition: stable 11:53 Discharge instructions given to patient, Instructed on discharge instructions, follow up and referral plans. medication usage, Demonstrated understanding of instructions, follow-up care, medications, Prescriptions given X 2, 11:54 Patient left the ED. me1 Signatures: Dispatcher [employer] EDSusana Gamino rg4 Elena Sanches RN RN ll1 Damaso Lux MD MD rt Amelia Rodriguez RN RN me1 Corrections: (The following items were deleted from the chart) 09:50 09:47 Pulse 88bpm; Resp 18bpm; Pulse Ox 100%; Temp 97.3F; 81.65 kg; Height 5 ft. 6 in.; ll1 BMI: 29.0; Pain 02/01, Adult; ll1 10:33 09:47 Chief complaint: Patient states: Tripped on rug Tuesday. Fell onto buttocks. me1 Severe pelvic/hip pain since. Gait steady ll1
--- NOTE | 2023-03-30 11:29 | EDPHYS ---
Physician Documentation [facility] Name: Linda Miramontes Age: 72 yrs Sex: Female : 1950 Arrival Date: 03/30/2023 Time: 09:38 Bed 4 Private MD: Kristian Torres V ED Physician Damaso Lux HPI: 03/30 09:59 This 72 yrs old Female presents to ER via Ambulatory with complaints of Fall rt Injury. 09:59 Patient presents to the ED 3 days following mechanical fall. Patient was walking rt backwards, tripped on a rug and landed onto her bottom. She reports pain throughout her back as well as to her abdomen and underneath her ribs. Denies hitting her head, loss of consciousness. Denies acute complaints at this time. Symptoms are moderate severity, aching nature, nonradiating, no other aggravating or elevating factors. Historical: - Allergies: 09:49 Bactrim (Facial Swelling); ll1 09:49 Codeine; ll1 - PMHx: 09:49 Diabetes - NIDDM; Lupus; Irritable bowel syndrome; Pneumonia; Migraines; Hypertension; ll1 Raynauds; Hepatitis; GERD; Crohn's Disease; Polio; autoimmune hepatitis; Cirrhosis; Sepsis; Sjogrenes; - Immunization history:: Adult Immunizations up to date. - Social history:: Smoking status: Patient denies any tobacco usage or history of. - Immunization history: Last tetanus immunization: - up to date. - Family history:: not pertinent. ROS: 09:59 Constitutional: Negative for fever, chills, and weight loss, Cardiovascular: Negative rt for chest pain, palpitations, and edema, Respiratory: Negative for shortness of breath, cough, wheezing, and pleuritic chest pain, MS/Extremity: Negative for injury and deformity, Skin: Negative for injury, rash, and discoloration, Neuro: Negative for headache, weakness, numbness, tingling, and seizure, Psych: Negative for depression, anxiety, suicide ideation, homicidal ideation, and hallucinations, 09:59 Abdomen/GI: Positive for abdominal pain, Negative for nausea and vomiting, 09:59 Back: Positive for pain with movement, Negative for radiated pain, Exam: :59 Constitutional: This is a well developed, well nourished patient who is awake, alert, rt and in no acute distress. Head/Face: Normocephalic, atraumatic. Chest/axilla: Normal chest wall appearance and motion. Nontender with no deformity. No lesions are appreciated. Cardiovascular: Regular rate and rhythm with a normal S1 and S2. No gallops, murmurs, or rubs. Normal PMI, no JVD. No pulse deficits. Respiratory: Lungs have equal breath sounds bilaterally, clear to auscultation and percussion. No rales, rhonchi or wheezes noted. No increased work of breathing, no retractions or nasal flaring. Abdomen/GI: Soft, non-tender, with normal bowel sounds. No distension or tympany. No guarding or rebound. No evidence of tenderness throughout. Skin: Warm, dry with normal turgor. Normal color with no rashes, no lesions, and no evidence of cellulitis. MS/ Extremity: Pulses equal, no cyanosis. Neurovascular intact. Full, normal range of motion. Neuro: Awake and alert, GCS 15, oriented to person, place, time, and situation. Cranial nerves II-XII grossly intact. Motor strength 5/5 in all extremities. Sensory grossly intact. Cerebellar exam normal. Normal gait. Psych: Awake, alert, with orientation to person, place and time. Behavior, mood, and affect are within normal limits. 09:59 Neck: No midline tenderness, no step-off, 09:59 Back: Bilateral paraspinal lumbar tenderness, no midline tenderness, no step-off, Vital Signs: 09:47 BP 133 / 58; Pulse 88; Resp 18; Temp 97.3; Pulse Ox 100% ; Weight 81.65 kg; Height 5 ll1 ft. 6 in. ; Pain 10/10; 10:32 BP 141 / 68; Pulse 80; Resp 18; Pulse Ox 100% on R/A; me1 11:45 BP 138 / 69; Pulse 80; Resp 16; Pulse Ox 96% on R/A; me1 09:47 Body Mass Index 29.05 (81.65 kg, 167.64 cm) ll1 09:47 Pain Scale: Adult ll1 [place] Coma Score: 10:33 Eye Response: spontaneous(4). Motor Response: obeys commands(6). Verbal Response: me1 oriented(5). Total: 15. Trauma Score (Adult): 10:33 Eye Response: spontaneous(1); Verbal Response: oriented(1); Motor Response: obeys me1 commands(2); Systolic BP: > 89 mm Hg(4); Respiratory Rate: 10 to 29 per min(4); [place] Score: 15; Trauma Score: 12 MDM: 09:43 Patient medically screened. rt 11:29 Differential diagnosis: Compression fracture, intra-abdominal injury, muscle spasm, rt pelvis, sacrum fracture. Data reviewed: vital signs, nurses notes, radiologic studies. Independent interpretation of the following test(s) in the Emergency Department CT Scan: My interpretation is Compression fracture seen in my interpretation of CT scan images. Counseling: I had a detailed discussion with the patient and/or guardian regarding the historical points, exam findings, and any diagnostic results supporting the discharge/admit diagnosis, radiology results, the need for outpatient follow up. Response to treatment: the patient's symptoms have markedly improved after treatment. 03/30 09:53 Order name: CT Chest Abdomen Pelvis W/O Contrast; Complete Time: 11:21 rt Administered Medications: 10:31 Drug: Ondansetron IVP 4 mg IVP once; over 2 minutes Route: IVP; Site: right antecubital;me1 11:54 Follow up: Response: No adverse reaction; Nausea is decreased me1 10:31 Drug: Ketorolac IVP 15 mg IVP once Route: IVP; Site: right hand; me1 11:54 Follow up: Response: No adverse reaction; Pain is decreased me1 10:32 Drug: morphine IVP or IV 4 mg IVP once over 4 mins Route: IVP; Infused Over: 4 mins; me1 Site: right hand; 11:54 Follow up: Response: No adverse reaction; Pain is decreased me1 Disposition Summary: 03/30/23 11:28 Discharge Ordered Notes: Location: Home rt Problem: new rt Symptoms: have improved rt Condition: Stable rt Diagnosis - Mechanical fall rt - T12 compression fracture rt Followup: rt - With: Kristian Torres MD - When: 5 - 6 days - Reason: Discharge Instructions: - Discharge Summary Sheet rt - Spinal Compression Fracture rt Forms: - Medication Reconciliation Form rt - Thank You Letter rt - Antibiotic Education rt - Prescription Opioid Use rt - Patient Portal Instructions rt - Leadership Thank You Letter rt Prescriptions: - Cyclobenzaprine 10 mg Oral tablet - take 1 tablet ORAL route every 8 hours As needed; 15 tablet; Refills: 0, rt Product Selection Permitted - Tramadol 50 mg Oral Tablet - take 1 tablet ORAL route every 8 hours as needed; 12 tablet; Refills: 0, rt Product Selection Permitted Signatures: Dispatcher [employer] Elena Garrett RN RN ll1 Damaso Lux MD MD rt Amelia Rodriguez RN RN me1
[2023-03-30 16:28] VITALS: TEMP 97.3
[2023-03-30 16:31] VITALS: BP 138/69; O2SAT 96
== END 2023-03-30 11:54 | disposition home or self-care (01) ==
LOC: ER 09:38
DX: S22.080A Wedge compression fracture of T11-T12 vertebra, initial encounter for closed fracture (principal); W01.0XXA Fall on same level from slipping, tripping and stumbling without subsequent striking against object, initial encounter; Z88.1 Allergy status to other antibiotic agents; Z88.5 Allergy status to narcotic agent; I10 Essential (primary) hypertension
CPT/HCPCS: 71250; 74176; 99285; J2405

== ENCOUNTER 2023-08-31 09:10 | Emergency (ER) | payer OTHER ==
--- NOTE | 2023-08-31 10:18 | RAD REPORT ---
EXAM DESCRIPTION: US - Extremity Venous Uni Ltd - 08/31/2023 10:02 am CLINICAL HISTORY: Pain COMPARISON: None. TECHNIQUE: Real-time sonographic evaluation of the left lower extremity deep venous system was perfo rmed. FINDINGS: Normal compressibility, flow augmentation, phasic flow and spontaneous flow is identified in the left lower extremity deep venous system. No intraluminal filling defects seen. IMPRESSION: No DVT in the left lower extremity.
--- NOTE | 2023-08-31 10:28 | ER ---
Nurse's Notes [facility] Name: Linda Miramontes Age: 72 yrs Sex: Female : 1950 Arrival Date: 08/31/2023 Time: 09:10 Bed 19 Private MD: Kristian Torres V Diagnosis: Pain in left lower leg Presentation: 08/30 09:17 Chief complaint: Patient states: Left leg pain X 1 weeks - became worse 2 days ago. ld1 Coronavirus screen: At this time, the client does not indicate any symptoms associated with coronavirus-19. Ebola Screen: No symptoms or risks identified at this time. Initial Sepsis Screen: Does the patient meet any 2 criteria? No. Patient's initial sepsis screen is negative. Does the patient have a suspected source of infection? No. Patient's initial sepsis screen is negative. Risk Assessment: Do you want to hurt yourself or someone else? Patient reports no desire to harm self or others. Onset of symptoms was August 31, 2023. 09:17 Method Of Arrival: Ambulatory ld1 09:17 Acuity: JOBY 3 ld1 Triage Assessment: 09:17 General: Appears in no apparent distress. uncomfortable, Behavior is calm, cooperative, ld1 appropriate for age. Pain: Complains of pain in left leg Pain does not radiate. Pain currently is 10 out of 10 on a pain scale. Quality of pain is described as throbbing, Pain began 1 week Is continuous. EENT: No signs and/or symptoms were reported regarding the EENT system. Neuro: Level of Consciousness is awake, alert, obeys commands, Oriented to person, place, time, situation. Cardiovascular: Capillary refill < 3 seconds Patient's skin is warm and dry. Respiratory: Airway is compromised Respiratory effort is even, unlabored. GI: Abdomen is round non-distended. : No signs and/or symptoms were reported regarding the genitourinary system. Derm: No signs and/or symptoms reported regarding the dermatologic system. Musculoskeletal: No signs and/or symptoms reported regarding the musculoskeletal system. Historical: - Allergies: 09:16 Bactrim (Facial Swelling); ld1 09:16 Codeine; ld1 - PMHx: 09:16 Cirrhosis; Pneumonia; Diabetes - NIDDM; Migraines; GERD; Hypertension; Hepatitis; ld1 Raynauds; Sjogrenes; Polio; Lupus; Irritable bowel syndrome; autoimmune hepatitis; Crohn's Disease; Sepsis; - PSHx: 09:20 Cholecystectomy; ld1 - Immunization history:: Adult Immunizations up to date. - Infectious Disease History:: Denies. - Social history:: Smoking status: Patient denies any tobacco usage or history of. Screenin:19 [facility] ED Fall Risk Assessment (Adult) History of falling in the last 3 months, ld1 including since admission No falls in past 3 months (0 pts). Abuse screen: Denies threats or abuse. Denies injuries from another. Nutritional screening: No deficits noted. Tuberculosis screening: No symptoms or risk factors identified. Assessment: 09:19 Reassessment: See triage assessment. ERP at bedside. ld1 10:32 Reassessment: Patient appears in no apparent distress at this time. No changes from ld1 previously documented assessment. Patient and/or family updated on plan of care and expected duration. Pain level reassessed. Patient is alert, oriented x 3, equal unlabored respirations, skin warm/dry/pink. Vital Signs: 09:19 Temp 97.8; Weight 77.11 kg; Height 5 ft. 6 in. ; Pain 10/10; ld1 09:19 Pulse 75; Resp 18; Pulse Ox 99% on R/A; ld1 09:21 BP 132 / 49; ld1 10:32 BP 129 / 59; Pulse 71; Resp 18; Pulse Ox 99% on R/A; ld1 09:19 Body Mass Index 27.44 (77.11 kg, 167.64 cm) ld1 09:19 Pain Scale: Adult ld1 ED Course: 09:13 Patient arrived in ED. mr 09:14 Kristian Torres MD is Private Physician. mr 09:15 Carl Garza DO is Attending Physician. ms3 09:15 Ivett Garza, RN is Primary Nurse. ld1 09:17 Arm band placed on right wrist. ld1 09:18 Triage completed. ld1 09:19 Patient has correct armband on for positive identification. Placed in gown. Bed in low ld1 position. Call light in reach. Side rails up X2. direct marketing manager on. Pulse ox on. NIBP on. Door closed. Noise minimized. Warm blanket given. 10:04 Extremity Venous Uni Ltd US In Process Unspecified. EDMS 10:28 Kristian Torres MD is Referral Physician. ms3 10:33 No provider procedures requiring assistance completed. Patient did not have IV access ld1 during this emergency room visit. Administered Medications: No medications were administered Medication: 09:19 VIS not applicable for this client. ld1 Outcome: : Discharge ordered by . ms3 10:33 Discharged to home via wheelchair, ld1 10:33 Condition: stable 10:33 Discharge instructions given to patient, Instructed on discharge instructions, follow up and referral plans. Demonstrated understanding of instructions, follow-up care, 10:33 Patient left the ED. ld1 Signatures: Dispatcher [employer] EDAK Naina Mg, Reg Reg mr Garza, Carl, DO DO ms3 Ivett Garza, RN RN ld1
--- NOTE | 2023-08-31 10:29 | EDPHYS ---
Physician Documentation [facility] Name: Linda Miramontes Age: 72 yrs Sex: Female : 1950 Arrival Date: 08/31/2023 Time: 09:10 Bed 19 Private MD: Kristian Torres V ED Physician Carl Garza HPI: 08/30 10:28 This 72 yrs old Female presents to ER via Ambulatory with complaints of Leg ms3 Pain. 10:28 72-year-old female with past medical history of cirrhosis, pneumonia, diabetes, ms3 migraines, GERD, hypertension, hepatitis,, Sjogren's, diverticulitis, Crohn's, hypertension presents to the emergency department for left lower leg pain that is rated 10/10. She describes the pain as a tearing feeling. Initially the pain began as a throbbing feeling 1 week prior to arrival. She denies any alleviating or inciting factors.. Historical: - Allergies: 09:16 Bactrim (Facial Swelling); ld1 09:16 Codeine; ld1 - PMHx: 09:16 Cirrhosis; Pneumonia; Diabetes - NIDDM; Migraines; GERD; Hypertension; Hepatitis; ld1 Raynauds; Sjogrenes; Polio; Lupus; Irritable bowel syndrome; autoimmune hepatitis; Crohn's Disease; Sepsis; - PSHx: 09:20 Cholecystectomy; ld1 - Immunization history:: Adult Immunizations up to date. - Infectious Disease History:: Denies. - Social history:: Smoking status: Patient denies any tobacco usage or history of. ROS: 10:28 Constitutional: Negative for fever, and chills. Neck: Negative for injury, pain, and ms3 swelling, Cardiovascular: Negative for chest pain, and palpitations. Respiratory: Negative for shortness of breath, cough, wheezing, and pleuritic chest pain, Abdomen/GI: Negative for abdominal pain, nausea, vomiting, diarrhea, and constipation, 10:28 MS/extremity: Positive for tenderness, of the left leg, Exam: 10:28 Constitutional: This is a well developed, well nourished patient who is awake, alert, ms3 and in no acute distress. Head/Face: Normocephalic, atraumatic. Chest/axilla: Normal chest wall appearance and motion. Nontender with no deformity. Cardiovascular: Regular rate and rhythm with a normal S1 and S2. No gallops, murmurs, or rubs. Normal PMI, no JVD. No pulse deficits. Respiratory: Lungs have equal breath sounds bilaterally, clear to auscultation and percussion. No rales, rhonchi or wheezes noted. No increased work of breathing, no retractions or nasal flaring. Abdomen/GI: Soft, non-tender, with normal bowel sounds. No distension or tympany. No guarding or rebound. No evidence of tenderness throughout. Skin: Warm, dry with normal turgor. Normal color with no rashes, no lesions, and no evidence of cellulitis. 10:28 Musculoskeletal/extremity: Extremities: noted in the left leg: pain, tenderness, Vital Signs: 09:19 Temp 97.8; Weight 77.11 kg; Height 5 ft. 6 in. ; Pain 10/10; ld1 09:19 Pulse 75; Resp 18; Pulse Ox 99% on R/A; ld1 09:21 BP 132 / 49; ld1 10:32 BP 129 / 59; Pulse 71; Resp 18; Pulse Ox 99% on R/A; ld1 09:19 Body Mass Index 27.44 (77.11 kg, 167.64 cm) ld1 09:19 Pain Scale: Adult ld1 MDM: 09:25 Patient medically screened. ms3 10:28 Differential diagnosis: contusion, Muscle tear vs DVT. Data reviewed: vital signs, ms3 nurses notes, radiologic studies, and as a result, I will discharge patient. Care significantly affected by the following chronic conditions: Diabetes, Hypertension, Liver Disease. Counseling: I had a detailed discussion with the patient and/or guardian regarding the historical points, exam findings, and any diagnostic results supporting the discharge/admit diagnosis, radiology results, the need for outpatient follow up, to return to the emergency department if symptoms worsen or persist or if there are any questions or concerns that arise at home. Special discussion: I discussed with the patient/guardian in detail that at this point there is no indication for admission to the hospital. It is understood, however, that if the symptoms persist or worsen the patient needs to return immediately for re-evaluation. ED course: Discussed negative DVT ultrasound with patient. Patient to follow-up with her primary care physician in 2 to 3 days. Patient understands and agrees with plan. All questions were answered. Return precautions discussed include worsening symptoms, or any other concerns.. 08/30 09:25 Order name: Extremity Venous Uni Ltd US; Complete Time: 10:25 ms3 Administered Medications: No medications were administered Disposition Summary: 08/31/23 10:28 Discharge Ordered Notes: Location: Home ms3 Condition: Stable ms3 Diagnosis - Pain in left lower leg ms3 Followup: ms3 - With: Kristian Torres MD - When: 2 - 3 days - Reason: Recheck today's complaints Discharge Instructions: - Discharge Summary Sheet ms3 - Musculoskeletal Pain ms3 Forms: - Medication Reconciliation Form ms3 - Antibiotic Education ms3 - Prescription Opioid Use ms3 - Patient Portal Instructions ms3 - Leadership Thank You Letter ms3 Signatures: Dispatcher [employer] EDMS Carl Garza, DO ms3 Ivett Garza RN RN ld1 Corrections: (The following items were deleted from the chart) 09:26 09:26 Extremity Venous Uni Ltd+US.RAD.BRZ ordered. EDCA EDMS
[2023-08-31 10:54] VITALS: BP 129/59; TEMP 97.8; O2SAT 99
== END 2023-08-31 10:33 | disposition home or self-care (01) ==
LOC: ER 09:10
DX: M79.662 Pain in left lower leg (principal); Z88.1 Allergy status to other antibiotic agents; Z88.5 Allergy status to narcotic agent
CPT/HCPCS: 93971

== ENCOUNTER 2023-09-03 20:32 | Emergency (ER) | payer OTHER ==
[2023-09-03] MEDS ORDERED: MORPHINE 4 MG/ML SYR ONE (20:45)
[2023-09-03] MEDS ORDERED: ONDANSETRON 4 MG (ODT) TAB ONE (20:45)
[2023-09-03] MEDS ORDERED: guaiFENesin 100 MG/5 ML UCUP ONE (21:01)
--- NOTE | 2023-09-03 21:06 | RAD REPORT ---
EXAM DESCRIPTION: RAD - Tib Fib Left - 09/03/2023 8:58 pm CLINICAL HISTORY: Pain;Swelling COMPARISON: No comparisons FINDINGS: Diffuse osteopenia is seen. Fracture of the midshaft of the fibula shaft is present. No di slocation seen.
--- NOTE | 2023-09-03 21:42 | ER ---
Nurse's Notes [facility] Name: Linda Miramontes Age: 72 yrs Sex: Female : 1950 Arrival Date: 09/03/2023 Time: 20:32 Bed 19 Private MD: Diagnosis: nondisplaced midshaft left fibula fracture Presentation: 09/02 20:35 Chief complaint: EMS states: left leg pain. Coronavirus screen: At this time, the as6 client does not indicate any symptoms associated with coronavirus-19. Ebola Screen: No symptoms or risks identified at this time. Initial Sepsis Screen: Does the patient meet any 2 criteria? No. Patient's initial sepsis screen is negative. Does the patient have a suspected source of infection? No. Patient's initial sepsis screen is negative. Risk Assessment: Do you want to hurt yourself or someone else? Patient reports no desire to harm self or others. Onset of symptoms was August 27, 2023. 20:35 Acuity: JOBY 3 as6 20:35 Method Of Arrival: EMS: [facility] as6 Triage Assessment: 20:33 General: Appears in no apparent distress. Behavior is calm, cooperative. Pain: as6 Complains of pain in left leg. Historical: - Allergies: 20:34 Bactrim (Facial Swelling); as6 20:34 Codeine; as6 - PMHx: 20:34 autoimmune hepatitis; Cirrhosis; Crohn's Disease; Diabetes - NIDDM; GERD; Hepatitis; as6 Hypertension; Irritable bowel syndrome; Lupus; Migraines; Pneumonia; Polio; Raynauds; Sepsis; Sjogrenes; - PSHx: 20:34 Cholecystectomy; as6 - Immunization history:: Adult Immunizations up to date. - Infectious Disease History:: Denies. - Social history:: Smoking status: Patient denies any tobacco usage or history of. Screenin:38 [facility] ED Fall Risk Assessment (Adult) History of falling in the last 3 months, rv including since admission No falls in past 3 months (0 pts) Confusion or Disorientation No (0 pts) Intoxicated or Sedated No (0 pts) Impaired Gait Yes (1 pt) Mobility Assist Device Used Yes (1 pt) Altered Elimination No (0 pt) Score/Fall Risk Level 0 - 2 = Low Risk Oriented to surroundings, Maintained a safe environment, Educated pt \T\ family on fall prevention, incl call for assistance when getting out of bed, Assessed \T\ reinforced patient's understanding of fall precautions. Abuse screen: Denies threats or abuse. Denies injuries from another. Nutritional screening: No deficits noted. Tuberculosis screening: No symptoms or risk factors identified. Assessment: 20:45 General: Appears uncomfortable, Behavior is calm, cooperative. rv 21:38 Pain: Complains of pain in left leg. Neuro: Level of Consciousness is awake, alert, rv obeys commands, Oriented to person, place, time, situation. Cardiovascular: Capillary refill < 3 seconds Patient's skin is warm and dry. Respiratory: Airway is patent Respiratory effort is even, unlabored. Derm: Skin is intact. Musculoskeletal: Circulation, motion, and sensation intact. Vital Signs: 20:33 BP 105 / 88; Pulse 63; Resp 18 S; Temp 97.8(O); Pulse Ox 97% on R/A; Weight 63.5 kg as6 (R); Height 5 ft. 4 in. (R); Pain 10/10; 22:13 BP 129 / 57; Pulse 67; Resp 16; Temp 98; Pulse Ox 99% on R/A; rv 20:33 Body Mass Index 24.03 (63.50 kg, 162.56 cm) as6 20:33 Pain Scale: Adult as6 [place] Coma Score: 22:13 Eye Response: spontaneous(4). Motor Response: obeys commands(6). Verbal Response: rv oriented(5). Total: 15. ED Course: 20:33 Patient arrived in ED. as6 20:34 Arm band placed on. as6 20:35 Triage completed. as6 20:36 Damaso Lux MD is Attending Physician. rt 20:41 Marcela Mitchell PA-C is PHCP. sb4 20:44 Pal Brock, ASHWIN is Primary Nurse. rv 21:00 Tib Fib Left XRAY In Process Unspecified. EDMS 21:38 Patient has correct armband on for positive identification. Client placed on continuous rv cardiac and pulse oximetry monitoring. NIBP monitoring applied. 21:38 No provider procedures requiring assistance completed. rv 22:13 Patient did not have IV access during this emergency room visit. rv 22:14 Orthoglass splint: Posterior long leg splint applied on left leg. rv Administered Medications: 20:51 Drug: morphine IM 4 mg IM once Route: IM; Site: right deltoid; rv 21:37 Follow up: Response: No adverse reaction; Marked relief of symptoms rv 20:51 Drug: Ondansetron PO 4 mg PO once Route: PO; rv 21:37 Follow up: Response: No adverse reaction; Marked relief of symptoms rv 21:02 Drug: guaiFENesin PO Liquid 10 ml PO once Route: PO; rv 21:37 Follow up: Response: No adverse reaction; Marked relief of symptoms rv Medication: 21:38 VIS not applicable for this client. rv Outcome: 21:42 Discharge ordered by . gerardo 22:14 Discharged to home via wheelchair, with family, rv 22:14 Condition: good 22:14 Discharge instructions given to patient, Instructed on discharge instructions, follow up and referral plans. Demonstrated understanding of instructions, follow-up care, splint care, 22:15 Patient left the ED. rv Signatures: Dispatcher [employer] EDPal Chow RN RN rv Omari Dejesus RN RN as6 Marcela Mitchell, PA-C PA-C justin4 Dmaaso Lux MD MD rt
--- NOTE | 2023-09-03 21:42 | EDPHYS ---
Physician Documentation [facility] Name: Linda Miramontes Age: 72 yrs Sex: Female : 1950 Arrival Date: 09/03/2023 Time: 20:32 Bed 19 Private MD: ED Physician Damaso Lux HPI: 09/02 20:42 This 72 yrs old Female presents to ER via EMS with complaints of leg pain. sb4 20:43 patient reports left lower leg pain for 10 days now. she denies any specific injury, sb4 does report history of polio that affected that leg when she was a child. she was seen in the ED 3 days ago and had a negative venous ultrasound. followed up with PCP who told her it was autoimmune hepatitis related. presents today with continued pain and now swelling. Historical: - Allergies: 20:34 Bactrim (Facial Swelling); as6 20:34 Codeine; as6 - PMHx: 20:34 autoimmune hepatitis; Cirrhosis; Crohn's Disease; Diabetes - NIDDM; GERD; Hepatitis; as6 Hypertension; Irritable bowel syndrome; Lupus; Migraines; Pneumonia; Polio; Raynauds; Sepsis; Sjogrenes; - PSHx: 20:34 Cholecystectomy; as6 - Immunization history:: Adult Immunizations up to date. - Infectious Disease History:: Denies. - Social history:: Smoking status: Patient denies any tobacco usage or history of. ROS: 20:43 Constitutional: Negative for fever, chills, and weight loss, sb4 20:43 MS/extremity: Positive for pain, of the lateral aspect of left calf, 20:43 All other systems are negative, Exam: 20:43 Constitutional: This is a well developed, well nourished patient who is awake, alert, sb4 and in no acute distress. Head/Face: Normocephalic, atraumatic. Eyes: Extra-ocular motions intact. Periorbital areas with no swelling, redness, or edema. ENT: Mucous membranes moist. Cardiovascular: Regular rate and rhythm with a normal S1 and S2. Respiratory: Lungs have equal breath sounds bilaterally, clear to auscultation and percussion. No rales, rhonchi or wheezes noted. No increased work of breathing, no retractions or nasal flaring. Abdomen/GI: Soft, non-tender, no distension. Skin: Warm, dry with normal turgor. Normal color with no rashes, no lesions, and no evidence of cellulitis. Neuro: Awake and alert, GCS 15, oriented to person, place, time, and situation. Motor strength 5/5 in all extremities. Sensory grossly intact. 20:43 Musculoskeletal/extremity: DVT Exam: negative Homans' sign noted on exam, no appreciated bluish discoloration, no erythema, no increased warmth, pain, swelling, of the left leg, tenderness, Vital Signs: 20:33 BP 105 / 88; Pulse 63; Resp 18 S; Temp 97.8(O); Pulse Ox 97% on R/A; Weight 63.5 kg as6 (R); Height 5 ft. 4 in. (R); Pain 10/10; 22:13 BP 129 / 57; Pulse 67; Resp 16; Temp 98; Pulse Ox 99% on R/A; rv 20:33 Body Mass Index 24.03 (63.50 kg, 162.56 cm) as6 20:33 Pain Scale: Adult as6 [place] Coma Score: 22:13 Eye Response: spontaneous(4). Motor Response: obeys commands(6). Verbal Response: rv oriented(5). Total: 15. MDM: 20:39 Patient medically screened. rt 21:39 Data reviewed: vital signs, nurses notes, radiologic studies, and as a result, I will sb4 discharge patient. Counseling: I had a detailed discussion with the patient and/or guardian regarding the historical points, exam findings, and any diagnostic results supporting the discharge/admit diagnosis, radiology results, the need for outpatient follow up, a orthopedic surgeon, to return to the emergency department if symptoms worsen or persist or if there are any questions or concerns that arise at home. 09/02 20:42 Order name: Tib Fib Left XRAY; Complete Time: 21:07 sb4 09/02 21:26 Order name: Posterior Leg Splint; Complete Time: 21:37 sb4 Administered Medications: 20:51 Drug: morphine IM 4 mg IM once Route: IM; Site: right deltoid; rv 21:37 Follow up: Response: No adverse reaction; Marked relief of symptoms rv 20:51 Drug: Ondansetron PO 4 mg PO once Route: PO; rv 21:37 Follow up: Response: No adverse reaction; Marked relief of symptoms rv 21:02 Drug: guaiFENesin PO Liquid 10 ml PO once Route: PO; rv 21:37 Follow up: Response: No adverse reaction; Marked relief of symptoms rv Disposition: 22:47 Co-signature as Attending Physician, Damaso Lux MD I reviewed the patient's care rt provided by the Advanced Practice Provider and agree with the diagnosis and treatment plan. Disposition Summary: 09/03/23 21:42 Discharge Ordered Notes: Location: Home sb4 Problem: new sb4 Symptoms: are unchanged sb4 Condition: Stable sb4 Diagnosis - nondisplaced midshaft left fibula fracture sb4 Followup: sb4 - With: Private Physician - When: 1 week - Reason: Recheck today's complaints, Re-evaluation by your physician Discharge Instructions: - Discharge Summary Sheet sb4 - Tibial and Fibular Fractures sb4 Forms: - Patient Portal Instructions sb4 - Leadership Thank You Letter sb4 Signatures: Dispatcher [employer] Pal Epstein RN RN rv Omari Dejesus RN RN as6 Marcela Mitchell, PA-C PA-C sb4 Damaso Lux MD MD rt Corrections: (The following items were deleted from the chart) 21:19 20:42 Extremity Venous Uni Ltd+[email or web address].RAD.BRZ ordered. GINI RUBALCAVA
[2023-09-03 22:21] VITALS: BP 129/57; TEMP 98; O2SAT 99
== END 2023-09-03 22:15 | disposition home or self-care (01) ==
LOC: ER 20:32
PROC: 2W3MX1Z Immobilization of Left Lower Extremity using Splint (ICD-10-PCS; principal; 2023-09-03)
DX: S82.492A Other fracture of shaft of left fibula, initial encounter for closed fracture (principal); Z88.1 Allergy status to other antibiotic agents; Z88.5 Allergy status to narcotic agent
CPT/HCPCS: 73590; 96372; 99284; 29515; Q0162

== ENCOUNTER 2023-09-24 11:21 | Emergency (ER) | payer OTHER ==
[2023-09-24] MEDS ORDERED: ASPIRIN 81 MG CHEWABLE TABLET ONE (11:31)
[2023-09-24] MEDS ORDERED: NA CHLORIDE 0.9% 1,000 ML ONE (11:31)
[2023-09-24 11:55] LABS: Absolute Eosinophils 0.2 K/uL (0-0.5); Absolute Lymphocytes (CBC) 0.4 K/uL (0.7-4.9); Absolute Monocytes 0.2 K/uL (0.1-1.3); Absolute Neutrophil 1.8 K/uL (1.8-8.0); Basophils % 1.5 % (0-1.3); Eosinophils % 6.6 % (0-4.4); Hematocrit 28.2 % (36.0-45.0); Hemoglobin 9.2 g/dL (12.0-15.0); Lymphocytes % 16.4 % (15.3-44.8); MCH 31.9 pg (27.0-35.0); MCHC 32.8 g/dL (32.0-36.0); MCV 97.5 fL (80-100); MPV 7.8 fL (7.6-11.3); Monocytes % 7.6 % (3.3-12.3); Neutrophils % 67.9 % (41.7-73.7); Nucleated Red Blood Cells % 0.5 % (0-0); Platelets 281 thou/uL (152-406); RBC Red Blood Cell Count 2.89 M/uL (3.86-4.86); Red Cell Distribution Width 18.8 % (12.1-15.2)
[2023-09-24 11:59] LABS: PT Prothrombin Time 12.7 SECONDS (9.5-12.5); Protime INR 1.16
[2023-09-24 12:16] LABS: Albumin 3.1 g/dL (3.4-5.0); Albumin/Globulin Ratio 0.7 (1.1-1.8); Anion Gap 7.8 mEq/L (5.0-15.0); Bilirubin Direct 0.2 mg/dL (0-0.2); Bilirubin Indirect, Calculated 0.3 mg/dL (0.2-0.8); Bilirubin Total 0.5 mg/dL (0.2-1.0); Globulin 4.2 g/dL (2.3-3.5); Magnesium 1.3 mg/dL (1.6-2.4); Potassium 3.8 mEq/L (3.5-5.1); Protein, Total 7.3 g/dL (6.4-8.2); Troponin High Sensitivity 5.8 pg/mL (<58.9)
[2023-09-24 12:41] LABS: Anisocytosis 2+; Blood Morphology Comment NOTED (NOT SEEN); Hypochromasia 2+; Platelet Estimate ADEQ; White Blood Cell Scan OK (OK)
[2023-09-24] MEDS ORDERED: Magnesium Sulfate 2gm IVPB 2 G/50 ML BAG IV ONE (12:48)
[2023-09-24] MEDS ORDERED: ONDANSETRON 4 MG/2 ML VIAL ONE (12:48)
[2023-09-24] MEDS ORDERED: FENTANYL CITR 100 MCG/2 ML ONE ×2 (12:48→13:02)
[2023-09-24] MEDS ORDERED: FAMOTIDINE 20 MG/2 ML VIAL IV ONE (13:03)
[2023-09-24 13:07] LABS: Specific Gravity 1.006 (1.005-1.030); Urine Bilirubin NEGATIVE (Negative); Urine Blood Negative (Negative); Urine Clarity Clear (Clear); Urine Color Light-Yellow (Yellow); Urine Glucose NEGATIVE (Negative); Urine Ketones NEGATIVE (Negative); Urine Microscopic Reflex YN NO UMIC; Urine Nitrite NEGATIVE (Negative); Urine Protein NEGATIVE (Negative); Urine Urobilinogen Normal (Normal); Urine pH 6.5 (5.0-7.0)
--- NOTE | 2023-09-24 13:13 | RAD REPORT ---
EXAM DESCRIPTION: US - Extrem Venous W Compress Allan - 09/24/2023 1:08 pm CLINICAL HISTORY: PAIN COMPARISON: Extremity Venous Uni Ltd dated 08/31/2023 TECHNIQUE: Real-time sonographic evaluation of the lower extremity deep venous systems was performed using color Doppler, grayscale, and compression. FINDINGS: Bilateral lower extremities. Normal compressibility, flow augmentation, phasic flow and spontaneous flow is identified in both the left and right lower extremity deep venous systems. No intraluminal filling defects seen. IMPRESSION: No DVT in either lower extremity.
--- NOTE | 2023-09-24 13:28 | RAD REPORT ---
EXAM DESCRIPTION: RAD - Chest Single View - 09/24/2023 1:08 pm CLINICAL HISTORY: CHEST PAIN COMPARISON: Chest Single View dated 10/18/2020; Chest Single View dated 05/03/2019; Chest Single View d ated 10/26/2018; Chest Pa And Lat (2 Views) dated 08/23/2018; Chest For Pe Angio dated 09/24/2023 FINDINGS: Lines: None. Lungs: Linear opacities in the peripheral right lung base which are new from prior. No edema. Pleural: No significant pleural effusions or pneumothorax. Cardiac: Cardiomegaly. Mediastinum: Within normal limits. Bones: No acute fractures. Other: None IMPRESSION: Scarring versus subsegmental atelectasis suspected at the right lung base.
--- NOTE | 2023-09-24 13:36 | RAD REPORT ---
EXAM DESCRIPTION: CT - Chest For Pe Angio - 09/24/2023 1:22 pm CLINICAL HISTORY: CHEST PAIN COMPARISON: Chest Abd Pelvis Wo Con dated 03/30/2023; THORAX WO CONTRAST dated 04/06/2010; THORAX W C ONTRAST dated 08/08/2006; Chest Single View dated 09/24/2023 TECHNIQUE: Dynamically enhanced axial 3 mm thick images of the chest were obtained during administra tion of <100> mL Isovue 370 IV contrast. Coronal and oblique reconstruction images were generated and reviewed. Exam utilizes a protocol for optimal evaluation of pulmonary arterial tree. Maximum intensity projections 3D imaging was utilized All CT scans are performed using dose optimization technique as appropriate and may include automated exposure control or mA/KV adjustment according to patient size. FINDINGS: Chest Wall: No suspicious thyroid nodules or pathologic lymphadenopathy. Lungs: Mild interlobular septal thickening and some scattered ground-glass opacities are present. Pleura: No significant effusions or pneumothorax. Mediastinum/brook: No pathologic lymphadenopathy. Pulmonary arteries/Aorta: No filling defect identified. No aortic aneurysm. Heart: No significant pericardial effusion. Mild cardiomegaly. Upper abdomen: Reference same-day CT of the abdomen pelvis Bones: No acute abnormality. IMPRESSION: Negative for pulmonary embolism. Possible mild interstitial edema. No evidence of pneumo mc.
--- NOTE | 2023-09-24 13:43 | RAD REPORT ---
EXAM DESCRIPTION: CTAbdomen Pelvis W Contrast - 09/24/2023 1:22 pm CLINICAL HISTORY: ABD PAIN COMPARISON: Abdomen Pelvis W Contrast dated 08/23/2018; CT ABD PELVIS W CONTRAST dated 11/25/2011; [place] st Abd Pelvis Wo Con dated 03/30/2023; Chest For Pe Angio dated 09/24/2023; Lumbar Spine Wo Con dated 08/31/2023 TECHNIQUE: CT of the abdomen and pelvis was performed with IV contrast. All CT scans are performed using dose optimization technique as appropriate and may include automated exposure control or mA/KV adjustment according to patient size. FINDINGS: Lower chest: Mitral annular calcifications. Liver: Hepatic steatosis. Nodular liver contour. Biliary: Cholecystectomy. Extrahepatic biliary duct dilatation is likely related to the postcholecyst ectomy state. Stomach: No significant focal abnormality. Duodenum: No significant focal abnormality. Pancreas: No significant abnormality. Spleen: No significant abnormality. Adrenal: No suspicious lesions. Kidney/ureter: No hydronephrosis. No renal calculi. Solid-appearing left renal lesion measuring 15 mi llimeters previously measured 12 mm on 03/30/2023 and 9 millimeters on 08/23/2018. Retroperitoneum: No retroperitoneal adenopathy. Vascular: No aneurysm. Mild atherosclerosis. Bowel: No significant focal abnormality. Peritoneum: No ascites or free air. Bladder: Grossly unremarkable. Reproductive: No adnexal masses. Hysterectomy . Bones: Chronic T12, L1, and T9 compression fractures . Grade 1 anterolisthesis of L5 on S1 with bilat eral pars defects. Other: n/a IMPRESSION: No acute intra-abdominal or pelvic finding. Slowly enlarging solid left exophytic renal mass could represent an extremely slow growing neoplasm.
--- NOTE | 2023-09-24 16:14 | ER ---
Nurse's Notes 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 Coronavirus screen: Client ll1 denies travel out of the [place] in the last 14 days. At this time, the client does not indicate any symptoms associated with coronavirus-19. Ebola Screen: Patient denies travel to an Ebola-affected area in the 21 days before illness onset. Initial Sepsis Screen: Does the patient meet any 2 criteria? No. Patient's initial sepsis screen is negative. Does the patient have a suspected source of infection? No. Patient's initial sepsis screen is negative. Risk Assessment: Do you want to hurt yourself or someone else? Patient reports no desire to harm self or others. Onset of symptoms was September 22, 2023. 11:37 Method Of Arrival: Ambulatory ll1 11:37 Acuity: JOBY 3 ll1 Triage Assessment: 11:39 General: Appears in no apparent distress. Behavior is calm, cooperative, appropriate ll1 for age. Pain: Complains of pain in chest Pain currently is 10 out of 10 on a pain scale. Quality of pain is described as pressure. Cardiovascular: Reports chest pain. Respiratory: Reports pain with respiration. Historical: - Allergies: 11:37 Bactrim (Facial Swelling); ll1 11:37 Codeine; ll1 - PMHx: 11:37 autoimmune hepatitis; Cirrhosis; Crohn's Disease; Diabetes - NIDDM; GERD; Hepatitis; ll1 Hypertension; Irritable bowel syndrome; Lupus; Migraines; Pneumonia; Polio; Raynauds; Sepsis; Sjogrenes; - PSHx: 11:37 Cholecystectomy; ll1 - Immunization history:: Adult Immunizations up to date. - Infectious Disease History:: Denies. - Social history:: Smoking status: Patient denies any tobacco usage or history of. Screenin:50 [facility] ED Fall Risk Assessment (Adult) History of falling in the last 3 months, mb9 including since admission No falls in past 3 months (0 pts) Confusion or Disorientation No (0 pts) Intoxicated or Sedated No (0 pts) Impaired Gait No (0 pts) Mobility Assist Device Used No (0 pt) Altered Elimination No (0 pt) Score/Fall Risk Level 0 - 2 = Low Risk Oriented to surroundings, Maintained a safe environment, Educated pt \T\ family on fall prevention, incl call for assistance when getting out of bed. Abuse screen: Denies threats or abuse. Nutritional screening: No deficits noted. Tuberculosis screening: No symptoms or risk factors identified. Assessment: 11:49 General: Appears in no apparent distress. Behavior is calm, cooperative. Pain: mb9 Complains of pain in abdomen Pain does not radiate. Pain currently is 10 out of 10 on a pain scale. Quality of pain is described as throbbing, Pain began 1 day ago. Is intermittent. Neuro: Dyson Agitation-Sedation Scale (RASS): 0 - Alert and Calm Level of Consciousness is awake, alert, obeys commands, Oriented to person, place, time, situation, Appropriate for age. Cardiovascular: Patient's skin is warm and dry. Respiratory: Airway is patent Respiratory effort is even, unlabored, Respiratory pattern is regular, symmetrical, Breath sounds are clear bilaterally. GI: Abdomen is round non-distended, Bowel sounds present X 4 quads. Abd is soft and non tender X 4 quads. : No signs and/or symptoms were reported regarding the genitourinary system. EENT: No signs and/or symptoms were reported regarding the EENT system. Derm: Skin is pink, warm \T\ dry. Musculoskeletal: Range of motion: intact in all extremities. Vital Signs: 11:37 BP 156 / 69; Pulse 66; Resp 16; Temp 97.6; Pulse Ox 100% on R/A; Weight 75.75 kg; ll1 Height 5 ft. 6 in. ; Pain 10/10; 12:00 BP 136 / 72; Pulse 81; Resp 16; Pulse Ox 96% on R/A; me1 12:50 BP 155 / 68; Pulse 81; Resp 18; Pulse Ox 100% on R/A; me1 13:30 BP 148 / 79; Pulse 81; Resp 16; Pulse Ox 96% on R/A; me1 14:00 BP 141 / 67; Pulse 78; Resp 16; Pulse Ox 96% on R/A; me1 15:00 BP 139 / 62; Pulse 73; Resp 17; Pulse Ox 97% on R/A; me1 16:00 BP 150 / 89; Pulse 79; Resp 17; Pulse Ox 97% on R/A; me1 11:37 Body Mass Index 26.95 (75.75 kg, 167.64 cm) ll1 11:37 Pain Scale: Adult ll1 ED Course: 11:24 Patient arrived in ED. ra3 11:27 Naina Landry, RN is Primary Nurse. mb9 11:27 Arm band placed on. mb9 11:27 Placed in gown. Bed in low position. Call light in reach. Side rails up X 1. Provided crissy Education on: EXAM DESCRIPTION: RAD - Chest Pa And Lat (2 Views) - 09/24/2023 6:48 am CLINICAL HISTORY: CONGESTION COMPARISON: Chest Pa And Lat (2 Views) dated 09/01/2021; Chest Single View dated 11/25/2019; CHEST PA AND LAT 2 VIEW dated 07/13/2010; CHEST PA AND LAT 2 VIEW dated 01/20/2010 FINDINGS: Lines: None. Lungs: No evidence of edema or pneumonia. Pleural: No significant pleural effusions or pneumothorax. Cardiac: The heart size is within normal limits. Mediastinum: Within normal limits. Bones: No acute fractures. Other: None IMPRESSION: No acute cardiopulmonary disease.. Client placed on continuous cardiac and pulse oximetry monitoring. NIBP monitoring applied. quality assurance monitor chassis on. 11:28 Klaus Gil MD is Attending Physician. [facility] 11:39 Triage completed. ll1 11:40 Initial lab(s) drawn, by ED staff, sent to lab. EKG done, by ED staff, reviewed by crissy Gil MD. Inserted saline lock: 22 gauge in right forearm, using aseptic technique. 12:01 Report given to ASHWIN Cisneros. mb9 12:23 Amelia Rodriguez, RN is Primary Nurse. me1 13:00 Urinalysis w/ reflexes Sent. me1 13:08 US Extremity Venous W Compression Allan In Process Unspecified. EDMS 13:08 Urine collected: clean catch specimen, cloudy. me1 13:10 XRAY Chest (1 view) In Process Unspecified. EDMS 13:24 CT Chest For PE Angio In Process Unspecified. EDMS 13:24 CT Abd/Pelvis - IV Contrast Only In Process Unspecified. EDMS 16:14 Enrique Macedo MD is Referral Physician. [facility] 16:25 No provider procedures requiring assistance completed. IV discontinued, intact, me1 bleeding controlled, No redness/swelling at site. Pressure dressing applied. O2 via room air. Administered Medications: 11:48 Drug: NS 0.9% IV 1000 ml IV at 75 ml/hr continuous Route: IV; Rate: 75 ml/hr; Site: mb9 right forearm; 16:17 Follow up: Response: No adverse reaction; IV Status: Completed infusion me1 11:49 Drug: Aspirin PO Chewable Tablet 81 mg PO once Route: PO; mb9 12:31 Follow up: Response: No adverse reaction me1 12:59 Drug: Magnesium Sulfate IVPB 2 grams IVPB once over 1 hrs Route: IVPB; Infused Over: 1 me1 hrs; Site: right hand; 14:37 Follow up: Response: No adverse reaction; IV Status: Completed infusion me1 13:00 Drug: NS 0.9% IV 500 ml IV at bolus once Route: IV; Rate: bolus; Site: right hand; me1 14:37 Follow up: Response: No adverse reaction; IV Status: Completed infusion me1 13:00 CANCELLED (Duplicate Order): fentanyl (pf)25 mcg IVP once me1 13:00 CANCELLED (Duplicate Order): fentanyl (pf)25 mcg IVP once me1 13:01 Drug: fentaNYL (PF) IVP 25 mcg IVP once Route: IVP; Site: right hand; me1 14:36 Follow up: Response: No adverse reaction; Pain is decreased me1 13:01 Drug: Ondansetron IVP 4 mg IVP once; over 2 minutes Route: IVP; Site: right hand; me1 14:36 Follow up: Response: No adverse reaction me1 13:01 CANCELLED (Duplicate Order): ondansetron 4 mg IVP once; over 2 minutes me1 13:06 Drug: fentaNYL (PF) IVP 25 mcg IVP once Route: IVP; Site: right hand; me1 14:36 Follow up: Response: No adverse reaction; Pain is decreased me1 13:06 Drug: Famotidine IVP 20 mg IVP once; dilute with 10 mL 0.9% NaCl; give over 2 minutes me1 Route: IVP; Site: right hand; 14:36 Follow up: Response: No adverse reaction me1 Medication: 11:50 VIS not applicable for this client. mb9 Outcome: 16:13 Discharge ordered by . shelia 16:25 Discharged to home ambulatory, with significant other, me1 16:25 Condition: stable 16:25 Discharge instructions given to patient, significant other, Instructed on discharge instructions, follow up and referral plans. medication usage, Demonstrated understanding of instructions, follow-up care, medications, Prescriptions given X 3, 16:26 Patient left the ED. me1 Signatures: Dispatcher [employer] EDMS Klaus Gil MD MD cha Lewis, Lynsay RN RN ll1 Naina Landry RN RN mb9 Amelia Rodriguez RN RN me1 Leslie Robb 3
--- NOTE | 2023-09-24 16:14 | EDPHYS ---
Physician Documentation [facility] Name: Linda Miramontes Age: 72 yrs Sex: Female : 1950 Arrival Date: 09/24/2023 Time: 11:21 Bed 18 Private MD: Klaus Nickerson HPI: 09/23 16:05 This 72 yrs old Female presents to ER via Ambulatory with complaints of shelia Abdominal Pain. 16:05 The patient or guardian reports chest pain that is located primarily in the no cp. shelia Historical: - Allergies: 11:37 Bactrim (Facial Swelling); ll1 11:37 Codeine; ll1 - PMHx: 11:37 autoimmune hepatitis; Cirrhosis; Crohn's Disease; Diabetes - NIDDM; GERD; Hepatitis; ll1 Hypertension; Irritable bowel syndrome; Lupus; Migraines; Pneumonia; Polio; Raynauds; Sepsis; Sjogrenes; - PSHx: 11:37 Cholecystectomy; ll1 - Immunization history:: Adult Immunizations up to date. - Infectious Disease History:: Denies. - Social history:: Smoking status: Patient denies any tobacco usage or history of. ROS: 16:06 Constitutional: Negative for fever, chills, and weight loss, Eyes: Negative for injury, shelia pain, redness, and discharge, ENT: Negative for injury, pain, and discharge, Neck: Negative for injury, pain, and swelling, Cardiovascular: Negative for chest pain, palpitations, and edema, Respiratory: Negative for shortness of breath, cough, wheezing, and pleuritic chest pain, Back: Negative for injury and pain, : Negative for injury, bleeding, discharge, and swelling, MS/Extremity: Negative for injury and deformity, Skin: Negative for injury, rash, and discoloration, Neuro: Negative for headache, weakness, numbness, tingling, and seizure, Psych: Negative for depression, anxiety, suicide ideation, homicidal ideation, and hallucinations, Allergy/Immunology: Negative for hives, rash, and allergies, Endocrine: Negative for neck swelling, polydipsia, polyuria, polyphagia, and marked weight changes, Hematologic/Lymphatic: Negative for swollen nodes, abnormal bleeding, and unusual bruising, 16:06 Cardiovascular: Negative for chest pain, edema, orthopnea, palpitations, paroxysmal nocturnal dyspnea, acute changes, 16:06 Abdomen/GI: Positive for abdominal pain, of the right lower quadrant and left lower quadrant, Exam: 16:06 Constitutional: This is a well developed, well nourished patient who is awake, alert, shelia and in no acute distress. Head/Face: Normocephalic, atraumatic. Eyes: Pupils equal round and reactive to light, extra-ocular motions intact. Lids and lashes normal. Conjunctiva and sclera are non-icteric and not injected. Cornea within normal limits. Periorbital areas with no swelling, redness, or edema. ENT: Nares patent. No nasal discharge, no septal abnormalities noted. Tympanic membranes are normal and external auditory canals are clear. Oropharynx with no redness, swelling, or masses, exudates, or evidence of obstruction, uvula midline. Mucous membranes moist. Neck: Trachea midline, no thyromegaly or masses palpated, and no cervical lymphadenopathy. Supple, full range of motion without nuchal rigidity, or vertebral point tenderness. No Meningismus. Chest/axilla: Normal chest wall appearance and motion. Nontender with no deformity. No lesions are appreciated. Cardiovascular: Regular rate and rhythm with a normal S1 and S2. No gallops, murmurs, or rubs. Normal PMI, no JVD. No pulse deficits. Respiratory: Lungs have equal breath sounds bilaterally, clear to auscultation and percussion. No rales, rhonchi or wheezes noted. No increased work of breathing, no retractions or nasal flaring. Abdomen/GI: Soft, non-tender, with normal bowel sounds. No distension or tympany. No guarding or rebound. No evidence of tenderness throughout. Back: No spinal tenderness. No costovertebral tenderness. Full range of motion. Female : Normal external genitalia. Skin: Warm, dry with normal turgor. Normal color with no rashes, no lesions, and no evidence of cellulitis. MS/ Extremity: Pulses equal, no cyanosis. Neurovascular intact. Full, normal range of motion. Neuro: Awake and alert, GCS 15, oriented to person, place, time, and situation. Cranial nerves II-XII grossly intact. Motor strength 5/5 in all extremities. Sensory grossly intact. Cerebellar exam normal. Normal gait. Psych: Awake, alert, with orientation to person, place and time. Behavior, mood, and affect are within normal limits. 16:06 ECG was reviewed by the Attending Physician. Vital Signs: 11:37 BP 156 / 69; Pulse 66; Resp 16; Temp 97.6; Pulse Ox 100% on R/A; Weight 75.75 kg; ll1 Height 5 ft. 6 in. ; Pain 10/10; 12:00 BP 136 / 72; Pulse 81; Resp 16; Pulse Ox 96% on R/A; me1 12:50 BP 155 / 68; Pulse 81; Resp 18; Pulse Ox 100% on R/A; me1 13:30 BP 148 / 79; Pulse 81; Resp 16; Pulse Ox 96% on R/A; me1 14:00 BP 141 / 67; Pulse 78; Resp 16; Pulse Ox 96% on R/A; me1 15:00 BP 139 / 62; Pulse 73; Resp 17; Pulse Ox 97% on R/A; me1 16:00 BP 150 / 89; Pulse 79; Resp 17; Pulse Ox 97% on R/A; me1 11:37 Body Mass Index 26.95 (75.75 kg, 167.64 cm) ll1 11:37 Pain Scale: Adult ll1 MDM: 11:28 Patient medically screened. shelia 16:09 Differential diagnosis: abnormal EKG, acute myocardial infarction, acute pericarditis, shelia costochondritis, hiatal hernia, pancreatitis, peptic ulcer disease, pericarditis, pneumonia, pneumothorax, pulmonary embolus, thoracic aortic disection, unstable angina, appendicitis, bowel obstruction, gastritis, Hepatitis, Mesenteric ischemia or infarction, non-specific abd pain, pancreatitis, Peritonitis, Pyelonephritis, Ureterolithiasis, urinary tract infection. HEART Score: History: Slightly Suspicious (0), ECG: Normal (0), Age: > or = 65 years (2), Risk Factors: > or = 3 Risk factors for atherosclerotic disease (2), [Hypercholesterolemia] [Hypertension] [DM] [+ Family HX] [Obesity] Troponin: < or = 1 x Normal Limit (0). The patient was given aspirin in the Emergency Department. HENNA Risk Score: 1 - patient's age is greater or equal to 65 years, 1 - Three or more CAD risk factors, TOTAL SCORE = 2. Data reviewed: vital signs, nurses notes, lab test result(s), EKG, radiologic studies, CT scan, doppler, plain films. Consideration of Admission/Observation Escalation of care including admission/observation considered. I considered the following discharge prescriptions or medication management in the emergency department Medications were administered in the Emergency Department. See MAR. Independent interpretation of the following test(s) in the Emergency Department EKG: See my EKG interpretation above. Test considered but Not performed: X-ray: no 2 d echo. 09/23 11:29 Order name: Basic Metabolic Panel; Complete Time: 12:35 [facility] 09/23 11:29 Order name: CBC with Diff; Complete Time: 12:58 [facility] 09/23 11:29 Order name: LFT's; Complete Time: 12:35 [facility] 09/23 11:29 Order name: Magnesium; Complete Time: 12:35 [facility] 09/23 11:29 Order name: NT PRO-BNP; Complete Time: 12:35 [facility] 09/23 11:29 Order name: PT-INR; Complete Time: 12:35 [facility] 09/23 11:29 Order name: Troponin HS; Complete Time: 12:35 [facility] 09/23 11:29 Order name: Lipase; Complete Time: 12:35 [facility] 09/23 11:29 Order name: Urinalysis w/ reflexes [facility] 09/23 11:59 Order name: CBC Smear Scan; Complete Time: 12:58 EDMS 09/23 11:29 Order name: XRAY Chest (1 view); Complete Time: 13:52 [facility] 09/23 12:37 Order name: US Extremity Venous W Compression Allan; Complete Time: 13:52 [facility] 09/23 12:37 Order name: CT Chest For PE Angio; Complete Time: 13:52 [facility] 09/23 12:37 Order name: CT Abd/Pelvis - IV Contrast Only; Complete Time: 13:52 [facility] 09/23 11:29 Order name: Cardiac monitoring; Complete Time: 11:49 [facility] 09/23 11:29 Order name: EKG - Nurse/Tech; Complete Time: 11:49 [facility] 09/23 11:29 Order name: IV Saline Lock; Complete Time: 11:49 [facility] 09/23 11:29 Order name: Labs collected and sent; Complete Time: 11:49 [facility] 09/23 11:29 Order name: O2 Per Protocol; Complete Time: 11:49 [facility] 09/23 11:29 Order name: O2 Sat Monitoring; Complete Time: 11:49 [facility] EC:06 Rate is 84 beats/min. Rhythm is regular. QRS interval is normal. QT interval is normal. shelia No Q waves. T waves are Normal. Clinical impression: Normal ECG and No evidence of ischemia. Interpreted by me. Reviewed by me. Administered Medications: 11:48 Drug: NS 0.9% IV 1000 ml IV at 75 ml/hr continuous Route: IV; Rate: 75 ml/hr; Site: mb9 right forearm; 16:17 Follow up: Response: No adverse reaction; IV Status: Completed infusion me1 11:49 Drug: Aspirin PO Chewable Tablet 81 mg PO once Route: PO; mb9 12:31 Follow up: Response: No adverse reaction me1 12:59 Drug: Magnesium Sulfate IVPB 2 grams IVPB once over 1 hrs Route: IVPB; Infused Over: 1 me1 hrs; Site: right hand; 14:37 Follow up: Response: No adverse reaction; IV Status: Completed infusion me1 13:00 Drug: NS 0.9% IV 500 ml IV at bolus once Route: IV; Rate: bolus; Site: right hand; me1 14:37 Follow up: Response: No adverse reaction; IV Status: Completed infusion me1 13:00 CANCELLED (Duplicate Order): fentanyl (pf)25 mcg IVP once me1 13:00 CANCELLED (Duplicate Order): fentanyl (pf)25 mcg IVP once me1 13:01 Drug: fentaNYL (PF) IVP 25 mcg IVP once Route: IVP; Site: right hand; me1 14:36 Follow up: Response: No adverse reaction; Pain is decreased me1 13:01 Drug: Ondansetron IVP 4 mg IVP once; over 2 minutes Route: IVP; Site: right hand; me1 14:36 Follow up: Response: No adverse reaction me1 13:01 CANCELLED (Duplicate Order): ondansetron 4 mg IVP once; over 2 minutes me1 13:06 Drug: fentaNYL (PF) IVP 25 mcg IVP once Route: IVP; Site: right hand; me1 14:36 Follow up: Response: No adverse reaction; Pain is decreased me1 13:06 Drug: Famotidine IVP 20 mg IVP once; dilute with 10 mL 0.9% NaCl; give over 2 minutes me1 Route: IVP; Site: right hand; 14:36 Follow up: Response: No adverse reaction me1 Disposition Summary: 09/24/23 16:13 Discharge Ordered Notes: Location: Home shelia Problem: new shelia Symptoms: have improved shelia Condition: Stable shelia Diagnosis - Abdominal pain, Generalized shelia - Other cirrhosis of liver shelia - 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 - enlarging shelia Followup: shelia - With: Private Physician - When: 2 - 3 days - Reason: Recheck today's complaints, Continuance of care, Re-evaluation by your physician Followup: shelia - With: Enrique Macedo MD - When: 2 - 3 days - Reason: Recheck today's complaints, Continuance of care, Re-evaluation by your physician Discharge Instructions: - Discharge Summary Sheet shelia - Abdominal Pain, Adult shelia - Cirrhosis shelia - Abdominal Pain, Adult, [id number] shelia - Aspirin and Your Heart shelia - Renal Mass shelia - Kidney Cancer shelia Forms: - Medication Reconciliation Form shelia - Antibiotic Education shelia - Prescription Opioid Use shelia - Patient Portal Instructions shelia - Leadership Thank You Letter [facility] Prescriptions: - Pepcid 20 mg Oral Tablet - take 1 tablet ORAL route every 12 hours for 10 days; 20 tablet; Refills: 0, [facility] Product Selection Permitted - Zofran 4 mg Oral Tablet - take 1 tablet ORAL route every 12 hours As needed; 20 tablet; Refills: 0, shelia Product Selection Permitted - dicyclomine 20 mg Oral tablet - take 1 tablet ORAL route 4 times per day; 28 tablet; Refills: 0, Product [facility] Selection Permitted Signatures: Dispatcher [employer] EDMS Klaus Gil MD MD cha Lewis, Lynsay RN RN ll1 Naina Landry, RN RN mb9 Amelia Rodriguez RN RN me1 Corrections: (The following items were deleted from the chart) 11:29 11:29 Chest Single View+RAD.RAD.BRZ ordered. EDLA EDMS 12:37 12:37 Extrem Venous W Compression Allan+US.RAD.BRZ ordered. EDLA EDMS 12:37 12:37 Chest For PE Angio+CT.RAD.BRZ ordered. EDLA EDMS 12:37 12:37 Abdomen Pelvis W Con+CT.RAD.BRZ ordered. EDLA EDMS 13:00 13:00 fentaNYL (PF) IVP 25 mcg IVP once ordered. me1 me1 13:00 13:00 fentaNYL (PF) IVP 25 mcg IVP once ordered. me1 me1 13:01 13:00 Ondansetron IVP 4 mg IVP once; over 2 minutes ordered. 1 me1
[2023-09-24 16:40] VITALS: TEMP 97.6
[2023-09-24 16:59] VITALS: BP 150/89; O2SAT 97
--- NOTE | 2023-09-26 14:11 | EKG ---
Test Date: 2023-09-24 Test Time: 11:41:51 Coverer: MB MEASUREMENT RESULTS: Intervals: Rate: 84 WY: 160 QRSD: 80 QT: 358 QTc: 423 [place]: P: 55 WY: 160 QRS: 39 T: 31 INTERPRETIVE STATEMENTS: Normal sinus rhythm Low voltage QRS Borderline ECG Compared to ECG 05/03/2019 14:12:02 Low QRS voltage now present Electronically Signed On 09-26-23 14:05:58 CDT by Carlos Alberto Antunez
== END 2023-09-24 16:26 | disposition home or self-care (01) ==
LOC: ER 11:21
DX: R10.84 Generalized abdominal pain (principal); K74.69 Other cirrhosis of liver; D41.11 Neoplasm of uncertain behavior of right renal pelvis
CPT/HCPCS: 96365; 96361; 93005; 85025; 80048; 36415; 83735; 85610; 80076; 81003; 84484; 83690; 83880; 71275; 74177; 71045; 93970; 96375; 99285; 96366; Q9967; J3475; J3010 ×2; J2405; J7030

== ENCOUNTER 2023-10-07 11:35 | Emergency (ER) | payer OTHER ==
--- OUTSIDE RECORDS SUMMARY | 2023-10-07 11:38 | XMS REPORT | Clinical Summary ---
Author Name Unknown Organization [facility] Address [address] [place] [address] Care Team Providers Care Photographic Developer And Printer Name Role Phone Kristian Torres MD Unavailable [phone] Evan aLl MD Primary Care Provider [phone] Cristopher Bettencourt MD Unavailable [phone] Enrique Macedo MD Unavailable [phone] Social History Tobacco Use Types Packs/Day Years Used Date Smoking Tobacco: Never Assessed Sex and Gender Information Value Date Recorded Sex Assigned at Not on file Gender Identity Not on file Sexual Orientation Not on file Job Start Date Occupation Industry Not on file Not on file Not on file Plan of Treatment Upcoming Encounters Date Type Department Care Team (Late st Contact Info) Description 11/14/2023 8:30 AM CDT NPR MDA PATIENT ACCESS 11/17/2023 1:00 PM CDT Office Visit MD [facility] [place] - Urology [address] [place] [address] Evan Lal MD [address] [place] [address] [email or web address] Maintenance Due Date Last Done Comments COVID-19 Vaccine ( season) 2022, 06/25/2020 Influenza Vaccine 12/25/2023 02/23/2019 Care Teams Photographic Developer And Printer Relationship Specialty Start Date End Date Kristian Torres MD [address] [place] [id number] [email or web address] PCP - External Primary Care Provider Internal Medicine 09/24/23 Evan Lal MD [address] [place] [address] [email or web address] PCP - General Urology 09/24/23 Cristopher Bettencourt MD [address] [place] [id number] PCP - External Follow Up A Rheumatology 09/29/23 Enrique Macedo MD [address] [place] [address] [address] [place] [address] PCP - External Follow Up B Urology 09/29/23
[2023-10-07] MEDS ORDERED: ONDANSETRON 4 MG/2 ML VIAL ONE (12:28)
[2023-10-07] MEDS ORDERED: MORPHINE 4 MG/ML SYR ONE (12:29)
[2023-10-07] MEDS ORDERED: MUPIROCIN 2% OINT 22GM TUBE TOP ONE (12:29)
[2023-10-07] MEDS ORDERED: FAMOTIDINE 20 MG/2 ML VIAL IV ONE (12:29)
[2023-10-07] MEDS ORDERED: NA CHLORIDE 0.9% 1,000 ML ONE (12:29)
[2023-10-07] MEDS ORDERED: NA CHLORIDE 0.9% 500 ML ONE (12:30)
[2023-10-07 12:41] LABS: Absolute Eosinophils 0.1 K/uL (0-0.5); Absolute Lymphocytes (CBC) 0.6 K/uL (0.7-4.9); Absolute Monocytes 0.3 K/uL (0.1-1.3); Absolute Neutrophil 1.5 K/uL (1.8-8.0); Basophils % 0.7 % (0-1.3); Eosinophils % 4.6 % (0-4.4); Hematocrit 26.6 % (36.0-45.0); Hemoglobin 8.6 g/dL (12.0-15.0); Lymphocytes % 22.7 % (15.3-44.8); MCH 31.3 pg (27.0-35.0); MCHC 32.5 g/dL (32.0-36.0); MCV 96.3 fL (80-100); MPV 7.6 fL (7.6-11.3); Monocytes % 12.8 % (3.3-12.3); Neutrophils % 59.2 % (41.7-73.7); Nucleated Red Blood Cells % 0.3 % (0-0); Platelets 395 thou/uL (152-406); RBC Red Blood Cell Count 2.76 M/uL (3.86-4.86); Red Cell Distribution Width 18.4 % (12.1-15.2)
[2023-10-07 12:57] LABS: PT Prothrombin Time 13.6 SECONDS (9.5-12.5); Protime INR 1.24
--- NOTE | 2023-10-07 12:59 | RAD REPORT ---
EXAM DESCRIPTION: US - Extrem Venous W Compress Allan - 10/07/2023 12:48 pm CLINICAL HISTORY: PAIN Bilateral leg edema and swelling. COMPARISON: Extrem Venous W Compress Allan dated 09/24/2023 TECHNIQUE: Real-time sonographic interrogation of the left and right lower extremity deep venous sys tems was performed. FINDINGS: Normal compressibility, flow augmentation, phasic flow and spontaneous flow is identified in both the left and right lower extremity deep venous systems. IMPRESSION: No sonographic evidence of left or right lower extremity deep venous thrombosis.
[2023-10-07 13:01] LABS: Albumin 3.1 g/dL (3.4-5.0); Albumin/Globulin Ratio 0.7 (1.1-1.8); Anion Gap 9.4 mEq/L (5.0-15.0); Bilirubin Direct 0.2 mg/dL (0-0.2); Bilirubin Indirect, Calculated 0.3 mg/dL (0.2-0.8); Bilirubin Total 0.5 mg/dL (0.2-1.0); Globulin 4.2 g/dL (2.3-3.5); Magnesium 1.7 mg/dL (1.6-2.4); Potassium 3.4 mEq/L (3.5-5.1); Protein, Total 7.3 g/dL (6.4-8.2); Troponin High Sensitivity 6.7 pg/mL (<58.9)
[2023-10-07 13:29] LABS: Anisocytosis 1+; Blood Morphology Comment NOTED (NOT SEEN); Platelet Estimate ADEQ; Poikilocytosis 1+; White Blood Cell Scan OK (OK)
--- NOTE | 2023-10-07 13:38 | RAD REPORT ---
EXAM DESCRIPTION: CT - Chest For Pe Angio - 10/07/2023 1:31 pm CLINICAL HISTORY: Chest pain. Chest pain;Dyspnea COMPARISON: Chest For Pe Angio dated 09/24/2023 TECHNIQUE: CT angiogram of the pulmonary arteries was performed with MIP. All CT scans are performed using dose optimization technique as appropriate and may include automated exposure control or mA/KV adjustment according to patient size. FINDINGS: No evidence of pulmonary thromboembolism. No acute aortic finding demonstrated. Mild interstitial pulmonary edema. The heart is mildly prominent in size. No significant pericardial or pleural fluid. No concerning bony finding. Cholecystectomy. IMPRESSION: No evidence of pulmonary thromboembolism. Mild CHF.
--- NOTE | 2023-10-07 14:01 | RAD REPORT ---
EXAM DESCRIPTION: RAD - Knee Left 3 View - 10/07/2023 1:47 pm CLINICAL HISTORY: PAIN COMPARISON: Knee Left 3 View dated 09/11/2021; Knee Left 3 View dated 12/30/2018 FINDINGS: Advanced tricompartmental osteoarthritis is present of the knee, greatest in the lateral c ompartment. Trace suprapatellar joint effusion. There is a subacute/healing midshaft fracture of the fibula.
--- NOTE | 2023-10-07 14:03 | RAD REPORT ---
EXAM DESCRIPTION: RAD - Tib Fib Left - 10/07/2023 1:47 pm CLINICAL HISTORY: PAIN COMPARISON: Tib Fib Left dated 09/03/2023 FINDINGS: Prominent diffuse osteopenia is seen. Subacute fractures seen mid shaft of the left fibula with healing present. Elsewhere no fracture seen.
--- NOTE | 2023-10-07 14:04 | RAD REPORT ---
EXAM DESCRIPTION: RAD - Chest Single View - 10/07/2023 1:47 pm CLINICAL HISTORY: COUGH Chest pain. COMPARISON: Chest Single View dated 09/24/2023; Chest Single View dated 10/18/2020; Chest Single View d ated 05/03/2019; Chest Single View dated 10/26/2018 FINDINGS: Portable technique limits examination quality. Mild interstitial pulmonary edema is seen. The heart is mildly enlarged in size. No displaced fractur es. IMPRESSION: Mild CHF.
[2023-10-07 14:35] LABS: Specific Gravity 1.012 (1.005-1.030); Sqamous Epithelial None Seen /HPF (None Seen); Urine Bacteria None Seen /HPF (<20); Urine Bilirubin NEGATIVE (Negative); Urine Blood Negative (Negative); Urine Clarity Clear (Clear); Urine Color Colorless (Yellow); Urine Culture Reflex Order NOT NEEDED; Urine Glucose NEGATIVE (Negative); Urine Ketones NEGATIVE (Negative); Urine Microscopic Reflex YN ORDER UMIC; Urine Nitrite NEGATIVE (Negative); Urine Protein NEGATIVE (Negative); Urine RBC <5 /HPF (None Seen); Urine Urobilinogen Normal (Normal); Urine WBC <5 /HPF (<5); Urine pH 6.5 (5.0-7.0)
[2023-10-07] MEDS ORDERED: FUROSEMIDE 20 MG/ 2ML VIAL ONE (15:19)
[2023-10-07] MEDS ORDERED: POTASSIUM 25 MEQ EFFERV TAB ONE (15:19)
[2023-10-07] MEDS ORDERED: PANTOPRAZOLE 40 MG INJ ONE (15:19)
--- NOTE | 2023-10-07 15:21 | ER ---
Nurse's Notes [facility] Name: Linda Miramontes Age: 72 yrs Sex: Female : 1950 Arrival Date: 10/07/2023 Time: 11:35 Bed 8 Private MD: Kristian Torres V Diagnosis: Chronic combined systolic (congestive) and diastolic (congestive) heart failure;Anemia, unspecified;Other cirrhosis of liver-autohepatitis;Nondisplaced oblique fracture of shaft of unspecified fibula, initial encounter for closed fracture-subacute;Hypokalemia;Osteoarthritis of knee, unspecified-left tricompartmental Presentation: 10/06 11:53 Chief complaint: Chief complaint: Left leg pain x 6 weeks, right chest wall pain and hb SOB x 2 days. 11:56 Coronavirus screen: At this time, the client does not indicate any symptoms associated hb with coronavirus-19. Ebola Screen: No symptoms or risks identified at this time. Initial Sepsis Screen: Does the patient meet any 2 criteria? No. Patient's initial sepsis screen is negative. Does the patient have a suspected source of infection? No. Patient's initial sepsis screen is negative. Risk Assessment: Do you want to hurt yourself or someone else? Patient reports no desire to harm self or others. Onset of symptoms was August 2023. 11:56 Method Of Arrival: Wheelchair hb 11:56 Acuity: JOBY 3 hb Triage Assessment: 11:41 General: Appears in no apparent distress. uncomfortable, Behavior is calm, cooperative. rs5 Respiratory: Respiratory: Reports shortness of breath Airway is patent Respiratory effort is even, unlabored, Respiratory pattern is regular, symmetrical, Onset: The symptoms/episode began/occurred yesterday. Historical: - Allergies: 11:58 Bactrim (Facial Swelling); hb 11:58 Codeine; hb - PMHx: 11:58 autoimmune hepatitis; Cirrhosis; Crohn's Disease; Diabetes - NIDDM; GERD; Hepatitis; hb Hypertension; Irritable bowel syndrome; Lupus; Migraines; Pneumonia; Polio; Raynauds; Sepsis; Sjogrenes; - PSHx: 11:58 Cholecystectomy; hb - Immunization history:: Adult Immunizations up to date. - Infectious Disease History:: Denies. - Social history:: Smoking status: Patient denies any tobacco usage or history of. Screenin:42 [facility] ED Fall Risk Assessment (Adult) History of falling in the last 3 months, rs5 including since admission No falls in past 3 months (0 pts) Confusion or Disorientation No (0 pts) Intoxicated or Sedated No (0 pts) Impaired Gait No (0 pts) Mobility Assist Device Used No (0 pt) Altered Elimination No (0 pt) Score/Fall Risk Level 0 - 2 = Low Risk Oriented to surroundings, Maintained a safe environment. Abuse screen: Denies threats or abuse. Nutritional screening: No deficits noted. Tuberculosis screening: No symptoms or risk factors identified. Assessment: 11:41 General: Appears in no apparent distress. uncomfortable, Behavior is calm, cooperative. rs5 Pain: Complains of pain in left leg and chest Pain does not radiate. Pain currently is 8 out of 10 on a pain scale. Quality of pain is described as aching, Is continuous. Neuro: Level of Consciousness is awake, alert, obeys commands, Oriented to person, place, time, situation. Cardiovascular: Patient's skin is warm and dry. Rhythm is regular. Respiratory: Reports shortness of breath Airway is patent Respiratory effort is even, unlabored, Respiratory pattern is regular, symmetrical, GI: Abdomen is round non-distended, Abd is soft and non tender X 4 quads. : No signs and/or symptoms were reported regarding the genitourinary system. EENT: No signs and/or symptoms were reported regarding the EENT system. Derm: Skin is intact, Skin is pink, warm \T\ dry. Musculoskeletal: Range of motion: limited in left knee and left ankle. 12:55 Reassessment: Patient and/or family updated on plan of care and expected duration. Pain rs5 level reassessed. Patient is alert, oriented x 3, equal unlabored respirations, skin warm/dry/pink. Patient states feeling better. 14:05 Reassessment: No changes from previously documented assessment. rs5 15:10 Reassessment: Patient and/or family updated on plan of care and expected duration. Pain rs5 level reassessed. Patient is alert, oriented x 3, equal unlabored respirations, skin warm/dry/pink. Vital Signs: 11:56 BP 154 / 65; Pulse 80; Resp 16; Temp 97.7(TE); Pulse Ox 99% on R/A; Weight 75.75 kg; hb Height 5 ft. 6 in. ; Pain 10/10; 15:15 BP 140 / 71; Pulse 77; Resp 17; Pulse Ox 99% ; rs5 11:56 Body Mass Index 26.95 (75.75 kg, 167.64 cm) hb 11:56 Pain Scale: Adult hb ED Course: 11:38 Patient arrived in ED. mr 11:38 Kristian Torres MD is Private Physician. mr 11:42 Patient has correct armband on for positive identification. Placed in gown. Bed in low rs5 position. Call light in reach. Side rails up X2. 11:42 No provider procedures requiring assistance completed. rs5 11:51 Klaus Gil MD is Attending Physician. shelia 11:57 Triage completed. hb 11:58 Arm band placed on. hb 12:10 True Garza, ASHWIN is Primary Nurse. rs5 12:25 Initial lab(s) drawn, by nd, sent to lab. Inserted saline lock: 22 gauge in right aa5 forearm, using aseptic technique. Blood collected. 12:50 US Extremity Venous W Compression Allan In Process Unspecified. EDMS 13:04 EKG done, by ED staff, reviewed by Klaus Gil MD. [id number] 13:33 CT Chest For PE Angio In Process Unspecified. EDMS 13:48 XRAY Chest (1 view) In Process Unspecified. EDMS 13:48 Tib Fib Left XRAY In Process Unspecified. EDMS 13:48 Knee Left 3 View XRAY In Process Unspecified. EDMS 15:16 Kristian Torres MD is Referral Physician. shelia 15:17 Carlos Alberto Antunez MD is Referral Physician. shelia 15:17 Deuce Penn MD is Referral Physician. shelia 15:20 IV discontinued, intact, bleeding controlled, No redness/swelling at site. Pressure rs5 dressing applied. Administered Medications: 12:30 Drug: Mupirocin Topical Ointment 2 % 1 application Topical once Route: Topical; Site: rs5 affected area; 13:00 Follow up: Response: No adverse reaction rs5 12:30 Drug: morphine IVP or IV 4 mg IVP once over 4 mins Route: IVP; Infused Over: 4 mins; rs5 Site: right antecubital; 13:00 Follow up: Response: No adverse reaction; Pain is decreased rs5 12:30 Drug: Ondansetron IVP 4 mg IVP once; over 2 minutes Route: IVP; Site: right antecubital;rs5 13:01 Follow up: Response: No adverse reaction rs5 12:30 Drug: NS 0.9% IV 500 ml IV at bolus once Route: IV; Rate: bolus; Site: right rs5 antecubital; 13:00 Follow up: Response: No adverse reaction rs5 12:30 Drug: NS 0.9% IV 1000 ml IV at 125 ml/hr continuous Route: IV; Rate: 125 ml/hr; Site: rs5 right antecubital; 13:00 Follow up: Response: No adverse reaction rs5 12:30 Drug: Famotidine IVP 20 mg IVP once; dilute with 10 mL 0.9% NaCl; give over 2 minutes rs5 Route: IVP; Site: right antecubital; 13:00 Follow up: Response: No adverse reaction rs5 15:10 Drug: Potassium PO Effervescent Tablet 25 mEq PO once; dissolve in 4 ounces of water or rs5 juice Route: PO; 15:30 Follow up: Response: No adverse reaction rs5 15:10 Drug: Pantoprazole IVP 40 mg IVP once Route: IVP; Site: right antecubital; rs5 15:30 Follow up: Response: No adverse reaction rs5 15:15 Drug: Furosemide IVP 20 mg IVP once; give over 2 minutes Route: IVP; Site: right rs5 forearm; 15:20 Follow up: Response: No adverse reaction rs5 16:35 Not Given (Patient Refused): morphineor iv 4 mg IVP once over 4 mins rs5 Medication: 12:11 VIS not applicable for this client. rs5 Outcome: 15:20 Discharge ordered by MD. bass 15:20 Discharged to home ambulatory, rs5 15:20 Condition: stable 15:20 Discharge instructions given to patient, family, Instructed on discharge instructions, follow up and referral plans. Demonstrated understanding of instructions, follow-up care, 15:28 Patient left the ED. rs5 Signatures: Dispatcher [employer] EDMS Klaus Gil MD MD cha Rivera, Mary, Reg Reg mr Madison Gregory RN RN aa5 Ada Rivero RN RN True Garza RN RN rs5 Mario Alberto Guajardo [email or web address] Corrections: (The following items were deleted from the chart) 11:57 11:53 Chief complaint: hb hb 11:58 11:56 BP 154 / 65; Pulse 80bpm; Resp 16bpm; Pulse Ox 99% RA; Temp 97.7F Temporal; Pain hb 10/10, Adult; hb 16:30 15:00 Response: No adverse reaction rs5 rs5
--- NOTE | 2023-10-07 15:21 | EDPHYS ---
Physician Documentation [facility] Name: Linda Miramontes Age: 72 yrs Sex: Female : 1950 Arrival Date: 10/07/2023 Time: 11:35 Bed 8 Private MD: Kristian Torres V ED Physician Klaus Gil HPI: 10/06 15:08 This 72 yrs old Female presents to ER via Wheelchair with complaints of Rib shelia pain, Shortness Of Breath, Leg Pain. 15:08 The patient has shortness of breath during heavy activity. Onset: The symptoms/episode shelia began/occurred 5 day(s) ago. Historical: - Allergies: 11:58 Bactrim (Facial Swelling); hb 11:58 Codeine; hb - PMHx: 11:58 autoimmune hepatitis; Cirrhosis; Crohn's Disease; Diabetes - NIDDM; GERD; Hepatitis; hb Hypertension; Irritable bowel syndrome; Lupus; Migraines; Pneumonia; Polio; Raynauds; Sepsis; Sjogrenes; - PSHx: 11:58 Cholecystectomy; hb - Immunization history:: Adult Immunizations up to date. - Infectious Disease History:: Denies. - Social history:: Smoking status: Patient denies any tobacco usage or history of. ROS: 15:10 Constitutional: Negative for fever, chills, and weight loss, Eyes: Negative for injury, shelia pain, redness, and discharge, ENT: Negative for injury, pain, and discharge, Neck: Negative for injury, pain, and swelling, Cardiovascular: Negative for chest pain, palpitations, and edema, Respiratory: Negative for shortness of breath, cough, wheezing, and pleuritic chest pain, Abdomen/GI: Negative for abdominal pain, nausea, vomiting, diarrhea, and constipation, Back: Negative for injury and pain, : Negative for injury, bleeding, discharge, and swelling, Skin: Negative for injury, rash, and discoloration, Neuro: Negative for headache, weakness, numbness, tingling, and seizure, Psych: Negative for depression, anxiety, suicide ideation, homicidal ideation, and hallucinations, Allergy/Immunology: Negative for hives, rash, and allergies, Endocrine: Negative for neck swelling, polydipsia, polyuria, polyphagia, and marked weight changes, Hematologic/Lymphatic: Negative for swollen nodes, abnormal bleeding, and unusual bruising, 15:10 Abdomen/GI: Negative for nausea, vomiting, hematemesis, black/tarry stool, rectal pain, rectal bleeding, 15:10 MS/extremity: Positive for pain, tenderness, of the lateral aspect of left calf, Exam: 15:10 Constitutional: This is a well developed, well nourished patient who is awake, alert, shelia and in no acute distress. Head/Face: Normocephalic, atraumatic. Eyes: Pupils equal round and reactive to light, extra-ocular motions intact. Lids and lashes normal. Conjunctiva and sclera are non-icteric and not injected. Cornea within normal limits. Periorbital areas with no swelling, redness, or edema. ENT: Nares patent. No nasal discharge, no septal abnormalities noted. Tympanic membranes are normal and external auditory canals are clear. Oropharynx with no redness, swelling, or masses, exudates, or evidence of obstruction, uvula midline. Mucous membranes moist. Neck: Trachea midline, no thyromegaly or masses palpated, and no cervical lymphadenopathy. Supple, full range of motion without nuchal rigidity, or vertebral point tenderness. No Meningismus. Cardiovascular: Regular rate and rhythm with a normal S1 and S2. No gallops, murmurs, or rubs. Normal PMI, no JVD. No pulse deficits. Respiratory: Lungs have equal breath sounds bilaterally, clear to auscultation and percussion. No rales, rhonchi or wheezes noted. No increased work of breathing, no retractions or nasal flaring. Back: No spinal tenderness. No costovertebral tenderness. Full range of motion. Female : Normal external genitalia. Skin: Warm, dry with normal turgor. Normal color with no rashes, no lesions, and no evidence of cellulitis. Neuro: Awake and alert, GCS 15, oriented to person, place, time, and situation. Cranial nerves II-XII grossly intact. Motor strength 5/5 in all extremities. Sensory grossly intact. Cerebellar exam normal. Normal gait. Psych: Awake, alert, with orientation to person, place and time. Behavior, mood, and affect are within normal limits. 15:10 Chest/axilla: Inspection: normal, Palpation: is normal, Axilla: are normal, Breasts: are normal, Lymph nodes: lymphadenopathy is not appreciated, tender at right costal margin 15:10 ECG was reviewed by the Attending Physician. Vital Signs: 11:56 BP 154 / 65; Pulse 80; Resp 16; Temp 97.7(TE); Pulse Ox 99% on R/A; Weight 75.75 kg; hb Height 5 ft. 6 in. ; Pain 10/10; 15:15 BP 140 / 71; Pulse 77; Resp 17; Pulse Ox 99% ; rs5 11:56 Body Mass Index 26.95 (75.75 kg, 167.64 cm) hb 11:56 Pain Scale: Adult hb MDM: 11:51 Patient medically screened. shelia 15:14 Differential diagnosis: closed fracture, contusion, abrasion, Bronchitis CHF shelia exacerbation, Myocardial Infarction pneumonia, Pneumothorax pulmonary edema, Pulmonary Embolism reactive airway disease, Sepsis Unstable Angina Blunt Chest Trauma Chest Wall Contusion Chest Wall Injury Pleural Effusion Pneumomediastinum Pneumopericardium Pneumothorax Pulmonary Contusion Rib Fracture Ruptured Hemidiaphragm. Antibiotic administration: Not indicated. Immunization status: Pneumococcal vaccine: within last 5 years. Influenza vaccine: within last 5 years. Data reviewed: vital signs, nurses notes, lab test result(s), EKG, radiologic studies, CT scan, doppler, plain films. Consideration of Admission/Observation Escalation of care including admission/observation considered. I considered the following discharge prescriptions or medication management in the emergency department Medications were administered in the Emergency Department. See MAR. Independent interpretation of the following test(s) in the Emergency Department EKG: See my EKG interpretation above. Test considered but Not performed: Ultrasound no 2 d echo. Historians other than the Patient: Daughter/Son: daughter well informed. Care significantly affected by the following chronic conditions: Diabetes, Obesity, Liver Disease, cirrhosis, crohns. Counseling: I had a detailed discussion with the patient and/or guardian regarding the historical points, exam findings, and any diagnostic results supporting the discharge/admit diagnosis, lab results, radiology results, the need for outpatient follow up, for definitive care, a adult probation officer, a family practitioner, a baker pastry. 10/06 12:14 Order name: Basic Metabolic Panel; Complete Time: 14:47 shelia 10/06 12:14 Order name: CBC with Diff; Complete Time: 14:47 shelia 10/06 12:14 Order name: LFT's; Complete Time: 14:47 shelia 10/06 12:14 Order name: Magnesium; Complete Time: 14:47 [facility] 10/06 12:14 Order name: NT PRO-BNP; Complete Time: 14:47 [facility] 10/06 12:14 Order name: PT-INR; Complete Time: 14:47 [facility] 10/06 12:14 Order name: Troponin HS; Complete Time: 14:47 [facility] 10/06 12:14 Order name: Lipase; Complete Time: 14:47 [facility] 10/06 12:15 Order name: Urinalysis w/ reflexes; Complete Time: 14:47 [facility] 10/06 12:48 Order name: CBC Smear Scan; Complete Time: 14:47 EDMS 10/06 12:14 Order name: XRAY Chest (1 view); Complete Time: 14:47 [facility] 10/06 12:14 Order name: Tib Fib Left XRAY; Complete Time: 14:47 [facility] 10/06 12:14 Order name: Knee Left 3 View XRAY; Complete Time: 14:47 [facility] 10/06 12:14 Order name: US Extremity Venous W Compression Allan; Complete Time: 14:47 [facility] 10/06 13:02 Order name: CT Chest For PE Angio; Complete Time: 14:47 [facility] 10/06 12:14 Order name: EKG; Complete Time: 12:15 [facility] 10/06 12:14 Order name: Cardiac monitoring; Complete Time: 12:49 [facility] 10/06 12:14 Order name: EKG - Nurse/Tech; Complete Time: 12:49 [facility] 10/06 12:14 Order name: IV Saline Lock; Complete Time: 12:49 [facility] 10/06 12:14 Order name: Labs collected and sent; Complete Time: 12:49 [facility] 10/06 12:14 Order name: O2 Per Protocol; Complete Time: 12:49 [facility] 10/06 12:14 Order name: O2 Sat Monitoring; Complete Time: 12:49 [facility] EC:10 Rate is 72 beats/min. Rhythm is regular. QRS Mcdonald is Normal. AL interval is normal. QRS shelia interval is normal. QT interval is normal. No Q waves. T waves are Normal. No ST changes noted. Clinical impression: Normal ECG and No evidence of ischemia. Interpreted by me. Reviewed by me. Administered Medications: 12:30 Drug: Mupirocin Topical Ointment 2 % 1 application Topical once Route: Topical; Site: rs5 affected area; 13:00 Follow up: Response: No adverse reaction rs5 12:30 Drug: morphine IVP or IV 4 mg IVP once over 4 mins Route: IVP; Infused Over: 4 mins; rs5 Site: right antecubital; 13:00 Follow up: Response: No adverse reaction; Pain is decreased rs5 12:30 Drug: Ondansetron IVP 4 mg IVP once; over 2 minutes Route: IVP; Site: right antecubital;rs5 13:01 Follow up: Response: No adverse reaction rs5 12:30 Drug: NS 0.9% IV 500 ml IV at bolus once Route: IV; Rate: bolus; Site: right rs5 antecubital; 13:00 Follow up: Response: No adverse reaction rs5 12:30 Drug: NS 0.9% IV 1000 ml IV at 125 ml/hr continuous Route: IV; Rate: 125 ml/hr; Site: rs5 right antecubital; 13:00 Follow up: Response: No adverse reaction rs5 12:30 Drug: Famotidine IVP 20 mg IVP once; dilute with 10 mL 0.9% NaCl; give over 2 minutes rs5 Route: IVP; Site: right antecubital; 13:00 Follow up: Response: No adverse reaction rs5 15:10 Drug: Potassium PO Effervescent Tablet 25 mEq PO once; dissolve in 4 ounces of water or rs5 juice Route: PO; 15:30 Follow up: Response: No adverse reaction rs5 15:10 Drug: Pantoprazole IVP 40 mg IVP once Route: IVP; Site: right antecubital; rs5 15:30 Follow up: Response: No adverse reaction rs5 15:15 Drug: Furosemide IVP 20 mg IVP once; give over 2 minutes Route: IVP; Site: right rs5 forearm; 15:20 Follow up: Response: No adverse reaction rs5 16:35 Not Given (Patient Refused): morphineor iv 4 mg IVP once over 4 mins rs5 Disposition Summary: 10/07/23 15:20 Discharge Ordered Notes: Location: Home shelia Problem: new shelia Symptoms: have improved shelia Condition: Fair shelia Diagnosis - Chronic combined systolic (congestive) and diastolic (congestive) heart failure shelia - Anemia, unspecified shelia - Other cirrhosis of liver - autohepatitis shelia - Nondisplaced oblique fracture of shaft of unspecified fibula, initial encounter for shelia closed fracture - subacute - Hypokalemia shelia - Osteoarthritis of knee, unspecified - left tricompartmental shelia Followup: shelia - With: Kristian Torres MD - When: 1 - 2 days - Reason: Recheck today's complaints, Continuance of care, Re-evaluation by your physician Followup: shelia - With: Carlos Alberto Antunez MD - When: 2 - 3 days - Reason: Recheck today's complaints, Re-evaluation by your physician Followup: shelia - With: Deuce Penn MD - When: 2 - 3 days - Reason: Recheck today's complaints, Re-evaluation by your physician Discharge Instructions: - Discharge Summary Sheet shelia - Anemia shelia - Arthritis shelia - Cirrhosis shelia - Heart Failure, Diagnosis shelia - Potassium Content of Foods shelia - Osteoarthritis shelia - Arthritis, [id number] shelia - Heart Failure, Self-Care, [id number]-[id number] shelia - Supporting Someone With Heart Failure shelia - Heart Failure Action Plan shelia - Preventing Heart Failure shelia - Living With Heart Failure shelia - Heart Failure Exacerbation shelia - Heart Failure Medicines shelia - Heart Failure Eating Plan [facility] Forms: - Medication Reconciliation Form [facility] - Antibiotic Education shelia - Prescription Opioid Use shelia - Patient Portal Instructions [facility] - Leadership Thank You Letter [facility] Prescriptions: - Protonix 40 mg Oral Tablet - take 1 tablet ORAL route once daily; 30 tablet; Refills: 0, Product Selection [facility] Permitted - Lasix 20 mg Oral tablet - take 1 tablet ORAL route every other day; 20 tablet; Refills: 0, Product [facility] Selection Permitted - Potassium Chloride 20 meq Oral Packet - take 1 packet ORAL route once daily 1 packet in 6 (six) ounces of water or shelia juice; Take after meal; 20 packet; Refills: 0, Product Selection Permitted - Tramadol 50 mg Oral tablet - take 1 tablet ORAL route every 6 hours as needed; 20 tablet; Refills: 0, shelia Product Selection Permitted Signatures: Dispatcher [employer] EDKlaus Drew MD MD cha Baxter, Heather, RN RN True Garza RN RN rs5 Corrections: (The following items were deleted from the chart) 12:15 12:15 BASIC METABOLIC PANEL+C.LAB.BRZ ordered. EDMS EDMS 12:15 12:15 CBC+H.LAB.BRZ ordered. EDMS EDMS 12:15 12:15 HEPATIC FUNCTION+C.LAB.BRZ ordered. EDMS EDMS 12:15 12:15 MAGNESIUM+C.LAB.BRZ ordered. EDMS EDMS 12:15 12:15 PROBNP+C.LAB.BRZ ordered. EDMS EDMS 12:15 12:15 PROTIME (+INR)+COAG.LAB.BRZ ordered. EDMS EDMS 12:15 12:15 Troponin High Sensitivity+C.LAB.BRZ ordered. EDMS EDMS 12:15 12:15 LIPASE+C.LAB.BRZ ordered. EDMS EDMS 12:15 12:15 Knee Left 3 View+RAD.RAD.BRZ ordered. EDMS EDMS 12:15 12:15 Extrem Venous W Compression Allan+US.RAD.BRZ ordered. EDMS EDMS 12:15 12:15 Urinalysis+U.LAB.BRZ ordered. EDMS EDMS
[2023-10-07 15:42] VITALS: BP 154/65; TEMP 97.7; O2SAT 99
--- NOTE | 2023-10-10 15:03 | EKG ---
Test Date: 2023-10-07 Test Time: 12:53:14 Human Service Specialist: SADIQ MEASUREMENT RESULTS: Intervals: Rate: 72 TX: 144 QRSD: 82 QT: 408 QTc: 446 Julian: P: 72 TX: 144 QRS: 64 T: 52 INTERPRETIVE STATEMENTS: Normal sinus rhythm Normal ECG Compared to ECG 09/24/2023 11:41:51 No significant changes Electronically Signed On 10-10-23 14:54:20 CDT by Carlos Alberto Antunez
== END 2023-10-07 15:28 | disposition home or self-care (01) ==
LOC: ER 11:35
DX: I50.42 Chronic combined systolic (congestive) and diastolic (congestive) heart failure (principal); D64.9 Anemia, unspecified; K74.69 Other cirrhosis of liver; S82.435A Nondisplaced oblique fracture of shaft of left fibula, initial encounter for closed fracture; E87.6 Hypokalemia; M17.12 Unilateral primary osteoarthritis, left knee
CPT/HCPCS: 85025; 81001; 80048; 36415; 83735; 85610; 80076; 84484; 83690; 83880; 71275; 71045; 73562; 73590; 93970; 99284; Q9967; J1940; C9113; J2405; J7040; J7030; 93005

== ENCOUNTER 2023-12-18 08:19 | Emergency (ER) | payer OTHER ==
--- OUTSIDE RECORDS SUMMARY | 2023-12-18 08:23 | XMS REPORT | Clinical Summary ---
Author Name Unknown Organization [facility] Address [address] [place] [address] Care Team Providers Care Research Project Coordinator Name Role Phone Kristian Torres MD Unavailable [phone] Evan Lal MD Primary Care Provider [phone] Cristopher Bettencourt MD Unavailable [phone] Enrique Macedo MD Unavailable [phone] Allergies Active Allergy Reactions Criticality Noted Date Comments Codeine Itching,Other (See Comments),Shortness Of Breath High 11/24/2011 Chest pain Chest pain Other Reaction(s): Other (See Comments) Chest pain Chest pain Chest pain Other Reaction(s): Other (See Comments) Chest pain Chest pain Chest pain Sulfamethoxazole-Tri methoprim Itching,Swelling,Other (See Comments),Palpitations High 09/07/2012 lips Shaking lips Shaking Pt states it caused her mouth to swell and itching. Medications Medication Sig Dispensed Refills Start Date End Date Status colesevelam (WELCHOL) 625 mg tablet Take by mouth 2 (two) times a day with meals. Active mupirocin (BACTROBAN) 2% ointment Apply topically to affected area(s) twice daily. Active metFORMIN (GLUCOPHAGE) 1000 mg tablet Take 1 tablet (1,000 mg) by mouth daily with breakfast. Active levocetirizine (XYZAL) 5 MG tablet Take 1 tablet (5 mg) by mouth every evening. Active sodium chloride tablet Take 1 tablet (1 g) by mouth 3 (three) times a day. Active colestipol (COLESTID) 1 gram tablet Take 1 tablet (1 g) by mouth twice daily. Active omeprazole (PriLOSEC) 40 MG capsule Take 1 capsule (40 mg) by mouth 2 (two) times a day before meals. Active losartan (COZAAR) 50 mg tablet Take 1 tablet (50 mg) by mouth twice daily. Active gabapentin (NEURONTIN) 300 mg capsule Take 1 capsule (300 mg) by mouth 3 (three) times a day. Active nortriptyline HCl (NORTRIPTYLINE ORAL) Take 9 mg by mouth at bedtime. Active escitalopram (LEXAPRO) 20 mg tablet Take 1 tablet (20 mg) by mouth daily. Active famotidine (PEPCID) 40 mg tablet Take 1 tablet (40 mg) by mouth daily. Active cetirizine (ZyrTEC) 10 mg tablet Take 1 tablet (10 mg) by mouth daily. Active ALPRAZolam (XANAX) 1 mg tablet Take 1 tablet (1 mg) by mouth 3 (three) times a day. Active ARIPiprazole (ABILIFY) 5 mg tablet Take 0.5 tablets (2.5 mg) by mouth daily. Active meclizine (ANTIVERT) 25 mg tablet Take 1 tablet (25 mg) by mouth 3 (three) times a day as needed for dizziness or nausea. Active cevimeline (EVOXAC) 30 mg capsule Take 1 capsule (30 mg) by mouth 3 (three) times a day. Active ondansetron (ZOFRAN) 4 mg tablet Take 1 tablet (4 mg) by mouth every 8 (eight) hours as needed for vomiting or nausea. Active hyoscyamine (ANASPAZ,LEVSIN) 0.125 mg tablet Take 1 tablet (0.125 mg) by mouth every 6 (six) hours as needed for cramping. Active Active Problems Problem Noted Date Diagnosed Date Renal mass 11/10/2023 Encounters Date Type Department Care Team Description 11/18/2023 8:35 PM CDT Ancillary Procedure [facility] [address] [place] [address] Evan Lal MD Cancer 11/18/2023 8:30 PM CDT Ancillary Procedure [facility] [address] [place] [address] Evan Lal MD Cancer 11/18/2023 8:25 PM CDT Ancillary Procedure [facility] [address] [place] [address] Evan Lal MD Cancer 11/18/2023 8:20 PM CDT Ancillary Procedure [facility] [address] [place] [address] Evan Lal MD Cancer 11/18/2023 8:15 PM CDT Ancillary Procedure [facility] [address] [place] [address] Evan Lal MD Cancer 11/18/2023 8:10 PM CDT Ancillary Procedure [facility] [address] [place] [address] Evan Lal MD Cancer 11/18/2023 8:05 PM CDT Ancillary Procedure [facility] [address] [place] [address] Evan Lal MD Cancer 11/18/2023 8:00 PM CDT Ancillary Procedure [facility] [address] [place] [address] Evan Lal MD Cancer 11/17/2023 2:30 PM CDT NPR MDA PATIENT ACCESS Evan Lal MD 11/17/2023 1:00 PM CDT Office Visit [facility] [address] [place] [id number] Evan Lal MD Renal mass (Primary Dx) 11/17/2023 Travel 10/13/2023 Orders Only MD Gil in [place] - Urology [address] [place] [id number] Berenice Ng PA Renal mass (Primary Dx) after 12/18/2022 Surgical History Surgery Date Site/Laterality Comments TOTAL KNEE ARTHROPLASTY 04/25/2016 - 04/24/2017 Right ROTATOR CUFF REPAIR 04/25/1979 - 04/24/1980 Right SHOULDER ARTHROSCOPY Bilateral TOTAL OF 4 PER PT ARTHOSCOPY KNEE Bilateral TOTAL OF 8 KNEE SCOPES PER PT TOTAL VAGINAL HYSTERECTOMY 04/25/1974 - 04/24/1975 CHOLECYSTECTOMY 04/25/1975 - 04/24/1976 abdominal, d/t ruptured gall bladder per pt Medical History Medical History Date Comments Prediabetes Hypertension Sjogren syndrome Vertigo Anxiety depression Autoimmune hepatitis Crohn's disease Diverticulitis Nausea Diffuse esophageal spasm Migraine Osteopenia Family History Medical History Relation Name Comments Breast cancer Maternal Aunt 1 Lung cancer Maternal Aunt 2 Stomach cancer Maternal Cousin Relation Name Status Comments Maternal Aunt 1 Maternal Aunt 2 Maternal Cousin Social History Tobacco Use Types Packs/Day Years Used Date Smoking Tobacco: Never Smokeless Tobacco: Never Tobacco Cessation:Counseling Given: Not Answered Alcohol Use Standard Drinks/Week Comments Not Currently 0 (1 standard drink = 0.6 oz pur e alcohol) 1 drink a year Sex and Gender Information Value Date Recorded Sex Assigned at Not on file Gender Identity Not on file Sexual Orientation Not on file Job Start Date Occupation Industry Not on file Not on file Not on file Obstetrics History Last Filed Vital Signs Vital Sign Reading Time Taken Comments Blood Pressure 144/68 11/17/2023 1:32 PM CDT Pulse 73 11/17/2023 1:32 PM CDT Temperature 36.5 C (97.7 F) 11/17/2023 1:32 PM CD T Respiratory Rate 17 11/17/2023 1:32 PM CDT Oxygen Saturation - - Inhaled Oxygen Concentration - - Weight 72 kg (158 lb 11.7 oz) 11/17/2023 1:32 PM CDT Height 160 cm (5' 2.99") 11/17/2023 1:32 PM CDT Body Mass Index 28.13 11/17/2023 1:32 PM CDT Plan of Treatment Health Maintenance Due Date Last Done Comments Pneumococcal Vaccine: 65+ Ye ars (2 of 2 - PPSV23 or PCV20) 12/29/2020 12/30/2019, 03/18/2019 COVID-19 Vaccine (3 - 2022- season) 2022, 06/25/2020 Influenza Vaccine 12/25/2023 02/23/2019 Medical Devices Implanted Type Area Adult Basic Education Teacher Device Identifier Shelf Expiration Date Model / Serial / Lot Metal Description:right total knee replacement Procedures Procedure Name Priority Date/Time Associated Diagnosis Comments OSI VASCULAR Routine 08/31/2023 7:43 AM CDT Cancer OSI US RENAL Routine 07/27/2023 7:43 AM CDT Cancer OSI BARIUM SWALLOW Routine 04/28/2023 7: 41 AM DATA GOVERNANCE ANALYST Cancer OSI US RENAL Routine 01/04/2023 7:41 AM CDT Cancer after 12/18/2022 Results * OSI US Vascular (08/31/2023 7:43 AM CDT) Narrative Systemgenerated, Documentation - 11/18/2023 7:43 AM CDT Study acquired at another institution. For comparison only. No MD Gil originated interpretation requested or available. Evan SOSAG OUTSIDE IMAGE OR DERABLES * OSI US Renal (07/27/2023 7:43 AM CDT) Only the most recent of2 resultswithin the time period is included. Narrative Systemgenerated, Documentation - 11/18/2023 7:43 AM CDT Study acquired at another institution. For comparison only. No MD Gil originated interpretation requested or available. Evan SOSAG OUTSIDE IMAGE OR DERABLES * OSI Barium Swallow (04/28/2023 7:41 AM DATA GOVERNANCE ANALYST) Narrative Systemgenerated, Documentation - 11/18/2023 7:41 AM CDT Study acquired at another institution. For comparison only. No MD Gil originated interpretation requested or available. Evan SOSAG OUTSIDE IMAGE OR DERABLES after 12/18/2022 Care Teams Research Project Coordinator Relationship Specialty Start Date End Date Kristian Torres MD [address] [place] [id number] [email or web address] PCP - External Primary Care Provider Internal Medicine 09/24/23 Evan Lal MD [address] [place] [phone] [email or web address] PCP - General Urology 09/24/23 Cristopher Bettencourt MD [address] [place] [phone] PCP - External Follow Up A Rheumatology 09/29/23 Enrique Macedo MD [address] [place] [phone] PCP - External Follow Up B Urology 09/29/23
[2023-12-18] MEDS ORDERED: HYDROCODONE/APAP 5/325 MG TAB ONE (10:37)
[2023-12-18] MEDS ORDERED: FENTANYL CITR 100 MCG/2 ML ONE (10:58)
--- NOTE | 2023-12-18 11:34 | EDPHYS ---
Physician Documentation [facility] Name: Linda Miramontes Age: 73 yrs Sex: Female : 1950 Arrival Date: 12/18/2023 Time: 08:19 Bed 10 Private MD: ED Physician Callie Jones HPI: 12/17 10:00 This 73 yrs old Female presents to ER via Ambulatory with complaints of Leg cp Pain. 10:00 The patient presents with pain, that is acute. The complaints affect the left lower leg cp and left ankle. Context: the patient can fully bear weight, can ambulate using a cane, Problem is a result from a previous injury: Yes. mid shaft fibula fracture. Onset: The symptoms/episode began/occurred 2 day(s) ago. 10:00 Associated signs and symptoms: Pertinent negatives calf tenderness, fever, numbness, cp swelling. 10:00 Associated signs and symptoms: Pertinent negatives: abdominal pain, chest pain, fever, cp shortness of breath, rash, cellulitis. Historical: - Allergies: 09:01 Bactrim (Facial Swelling); hb 09:01 Codeine; hb - PMHx: 09:01 autoimmune hepatitis; Cirrhosis; Crohn's Disease; Diabetes - NIDDM; GERD; Hepatitis; hb Hypertension; Irritable bowel syndrome; Lupus; Migraines; Pneumonia; Polio; Raynauds; Sepsis; Sjogrenes; - PSHx: 09:01 Cholecystectomy; hb - Immunization history:: Adult Immunizations up to date. - Infectious Disease History:: Denies. - Social history:: Smoking status: Patient denies any tobacco usage or history of. ROS: 10:05 MS/extremity: Positive for pain, tenderness, of the left ankle and left lower leg, cp 10:05 Eyes: Negative for injury, pain, redness, and discharge, cp 10:05 Constitutional: Negative for body aches, chills, fever, poor PO intake, 10:05 Neck: Negative for pain with movement, pain at rest, 10:05 Respiratory: Negative for cough, shortness of breath, wheezing, 10:05 Abdomen/GI: Negative for abdominal pain, vomiting, diarrhea, constipation, 10:05 Back: Negative for pain at rest, pain with movement, 10:05 Neuro: Negative for altered mental status, headache, numbness, tingling, weakness, 10:05 All other systems are negative, Exam: 10:10 Constitutional: The patient appears in no acute distress, alert, awake, non-toxic, well cp developed, well nourished, uncomfortable, 10:10 Head/Face: Normocephalic, atraumatic. cp 10:10 Eyes: Periorbital structures: appear normal, Conjunctiva: normal, no exudate, no cp injection, Sclera: no appreciated abnormality, Lids and lashes: appear normal, bilaterally, 10:10 ENT: External ear(s): are unremarkable, Nose: is normal, Mouth: Lips: moist, Oral mucosa: moist, 10:10 Chest/axilla: Inspection: normal, cp 10:10 Cardiovascular: Rate: normal, Pulses: Pulses are 2+ in left dorsalis pedis artery. Edema: is not appreciated, 10:10 Respiratory: the patient does not display signs of respiratory distress, Respirations: normal, no use of accessory muscles, no retractions, labored breathing, is not present, Breath sounds: are clear throughout, no decreased breath sounds, no stridor, no wheezing, 10:10 Back: pain, is absent, ROM is normal, 10:10 Musculoskeletal/extremity: Extremities: grossly normal except: noted in the left lower leg: tenderness along lateral mid shaft fibula, Joints: the left ankle displays painful range of motion, swelling, tenderness, DVT Exam: no swelling, negative Homans' sign noted on exam, no erythema, no increased warmth, Vital Signs: 08:57 BP 139 / 83; Pulse 79; Resp 16; Temp 97.6(TE); Pulse Ox 100% on R/A; Weight 66.68 kg; hb Height 5 ft. 5 in. ; Pain 8/10; 08:57 Body Mass Index 24.46 (66.68 kg, 165.1 cm) hb 08:57 Pain Scale: Adult hb MDM: 09:43 Patient medically screened. sd2 11:00 Differential diagnosis: closed fracture, dvt, cellulitis, strain. cp 11:33 Data reviewed: vital signs, nurses notes, radiologic studies, plain films, and as a cp result, I will discharge patient. 11:33 I considered the following discharge prescriptions or medication management in the emergency department Medications were administered in the Emergency Department. See MAR. Care significantly affected by the following chronic conditions: Diabetes, Liver Disease. Counseling: I had a detailed discussion with the patient and/or guardian regarding the historical points, exam findings, and any diagnostic results supporting the discharge/admit diagnosis, radiology results, to return to the emergency department if symptoms worsen or persist or if there are any questions or concerns that arise at home. Response to treatment: the patient's symptoms have markedly improved after treatment, and as a result, I will discharge patient. 12/17 10:25 Order name: XRAY Tib Fib LEFT; Complete Time: 11:52 cp 12/17 10:25 Order name: XRAY Ankle LEFT 3 view; Complete Time: 11:52 cp 12/17 11:33 Order name: Aircast Ankle Splint; Complete Time: 12:03 cp 12/17 11:33 Order name: Davey wrap-joint; Complete Time: 12:03 cp Administered Medications: 10:25 CANCELLED (Physician Discretion): hydrocodone-acetaminophen(7.5 mg-325 mg) 1 tabs PO cp once; RASS on ADMIN: Combtv4, Very Agttd3, Agttd2, Rstlss1, AlertClm0, Drwsy-1, Lt Sdtn-2, Mod Sdtn-3, Dp Sdtn-4, UnArsble-5 10:47 Not Given (Patient Refused): hydrocodone-acetaminophen5 mg-325 mg 2 tabs PO once aa5 11:02 Drug: fentaNYL (PF) IM 50 mcg IM once Route: IM; Site: right vastus lateralis; aa5 11:55 Follow up: Response: No adverse reaction aa5 11:55 Drug: Ondansetron Oral Disintegrating Tablet Oral Disintegrating Tablet 4 mg PO once hb Route: PO; 12:06 Follow up: Response: No adverse reaction; Medication administered at discharge. aa5 Disposition Summary: 12/18/23 11:34 Discharge Ordered Notes: Location: Home cp Problem: new cp Symptoms: have improved cp Condition: Stable cp Diagnosis - Pain in left ankle and joints of left foot cp Followup: cp - With: Private Physician - When: 1 week - Reason: Recheck today's complaints Discharge Instructions: - Discharge Summary Sheet cp - Elastic Bandage and RICE Therapy cp - Ankle Pain cp Forms: - Medication Reconciliation Form cp - Antibiotic Education cp - Prescription Opioid Use cp - Patient Portal Instructions cp - Leadership Thank You Letter cp Prescriptions: - Mobic 7.5 mg Oral Tablet - take 1 tablet ORAL route once daily take with food; 20 tablet; Refills: 0, cp Product Selection Permitted Signatures: Dispatcher [employer] EDMS Madison Gregory, RN RN aa5 Klaus Arguello PA PA cp Baxter, Heather, ASHWIN RN Callie Jones MD MD sd2 Corrections: (The following items were deleted from the chart) 10:25 10:25 Hydrocodone-Acetaminophen PO (7.5 mg-325 mg) 1 tabs PO once; RASS on ADMIN: cp Combtv4, Very Agttd3, Agttd2, Rstlss1, AlertClm0, Drwsy-1, Lt Sdtn-2, Mod Sdtn-3, Dp Sdtn-4, UnArsble-5 ordered. cp 10:26 10:26 Tib Fib Left+RAD.RAD.BRZ ordered. EDMS EDMS 10: 10:26 Ankle Left 3 View+RAD.RAD.BRZ ordered. EDMS EDMS
--- NOTE | 2023-12-18 11:34 | ER ---
Nurse's Notes [facility] Name: Linda Miramontes Age: 73 yrs Sex: Female : 1950 Arrival Date: 12/18/2023 Time: 08:19 Bed 10 Private MD: Diagnosis: Pain in left ankle and joints of left foot Presentation: 12/17 08:57 Chief complaint: Left lower leg and ankle pain x 2 days. Denies injury. Recent hx of hb fibula and ankle fx and plantar fascitis. Coronavirus screen: At this time, the client does not indicate any symptoms associated with coronavirus-19. Ebola Screen: No symptoms or risks identified at this time. Initial Sepsis Screen: Does the patient meet any 2 criteria? No. Patient's initial sepsis screen is negative. Does the patient have a suspected source of infection? No. Patient's initial sepsis screen is negative. Risk Assessment: Do you want to hurt yourself or someone else? Patient reports no desire to harm self or others. Onset of symptoms was December 16, 2023. 08:57 Method Of Arrival: Ambulatory hb 08:57 Acuity: JOBY 4 hb Triage Assessment: 09:02 General: Appears in no apparent distress. Behavior is calm, cooperative. Pain: Pain hb currently is 7 out of 10 on a pain scale. Neuro: Level of Consciousness is awake, alert, obeys commands, Oriented to person, place, time, situation. Cardiovascular: Patient's skin is warm and dry. Respiratory: Respiratory effort is even, unlabored, Respiratory pattern is regular, symmetrical. Musculoskeletal: Reports left lower leg and ankle pain. Historical: - Allergies: 09:01 Bactrim (Facial Swelling); hb 09:01 Codeine; hb - PMHx: 09:01 autoimmune hepatitis; Cirrhosis; Crohn's Disease; Diabetes - NIDDM; GERD; Hepatitis; hb Hypertension; Irritable bowel syndrome; Lupus; Migraines; Pneumonia; Polio; Raynauds; Sepsis; Sjogrenes; - PSHx: 09:01 Cholecystectomy; hb - Immunization history:: Adult Immunizations up to date. - Infectious Disease History:: Denies. - Social history:: Smoking status: Patient denies any tobacco usage or history of. Assessment: 10:40 Reassessment: Patient is alert, oriented x 3, equal unlabored respirations, skin aa5 warm/dry/pink. PA notified pt refused hydrocodone administration, pt states "I take it at home but it doesn't help" . 12:00 Reassessment: Aircast applied to left ankle . aa5 12:00 Reassessment: Patient is alert, oriented x 3, equal unlabored respirations, skin aa5 warm/dry/pink. Vital Signs: 08:57 BP 139 / 83; Pulse 79; Resp 16; Temp 97.6(TE); Pulse Ox 100% on R/A; Weight 66.68 kg; hb Height 5 ft. 5 in. ; Pain 8/10; 08:57 Body Mass Index 24.46 (66.68 kg, 165.1 cm) hb 08:57 Pain Scale: Adult hb ED Course: 08:23 Patient arrived in ED. ra3 09:01 Triage completed. hb 09:02 Arm band placed on. hb 09:43 Callie Jones MD is Attending Physician. sd2 09:46 Klaus Arguello PA is PHCP. cp 11:06 XRAY Tib Fib LEFT In Process Unspecified. EDMS 11:06 XRAY Ankle LEFT 3 view In Process Unspecified. EDMS 12:03 No provider procedures requiring assistance completed. Patient did not have IV access aa5 during this emergency room visit. Administered Medications: 10:25 CANCELLED (Physician Discretion): hydrocodone-acetaminophen(7.5 mg-325 mg) 1 tabs PO cp once; RASS on ADMIN: Combtv4, Very Agttd3, Agttd2, Rstlss1, AlertClm0, Drwsy-1, Lt Sdtn-2, Mod Sdtn-3, Dp Sdtn-4, UnArsble-5 10:47 Not Given (Patient Refused): hydrocodone-acetaminophen5 mg-325 mg 2 tabs PO once aa5 11:02 Drug: fentaNYL (PF) IM 50 mcg IM once Route: IM; Site: right vastus lateralis; aa5 11:55 Follow up: Response: No adverse reaction aa5 11:55 Drug: Ondansetron Oral Disintegrating Tablet Oral Disintegrating Tablet 4 mg PO once hb Route: PO; 12:06 Follow up: Response: No adverse reaction; Medication administered at discharge. aa5 Outcome: 11:34 Discharge ordered by . cp 12:03 Discharged to home ambulatory, aa5 12:03 Condition: improved 12:03 Discharge instructions given to patient, Instructed on discharge instructions, follow up and referral plans. medication usage, Demonstrated understanding of instructions, follow-up care, medications, Prescriptions given X 1, 12:06 Patient left the ED. Signatures: Dispatcher [employer] EDMS Madison Gregory RN RN aa5 Klaus Arguello PA PA cp Baxter, Heather, RN RN Callie Jones MD MD sd2 Leslie Robb ra3
[2023-12-18] MEDS ORDERED: ONDANSETRON 4 MG (ODT) TAB ONE (11:45)
--- NOTE | 2023-12-18 11:47 | RAD REPORT ---
EXAM DESCRIPTION: RAD - Tib Fib Left - 12/18/2023 11:04 am CLINICAL HISTORY: PAIN COMPARISON: Tib Fib Left dated 10/07/2023 TECHNIQUE: Left tibia and fibula, 2 views. FINDINGS: Healing midshaft left fibula fracture, with no change in alignment. Progressive proximal t ibial metaphyseal sclerosis suggesting healing trabecular compression fracture as well. There is no dislocation or periosteal reaction noted. No foreign body or other soft tissue abnormalit y. IMPRESSION: Healing midshaft left fibular fracture. Progressive proximal tibial metaphyseal sclerosi s suggesting healing trabecular compaction fracture as well.
--- NOTE | 2023-12-18 11:48 | RAD REPORT ---
EXAM DESCRIPTION: RAD - Ankle Left 3 View - 12/18/2023 11:04 am CLINICAL HISTORY: PAIN COMPARISON: No comparisons TECHNIQUE: Left ankle, 3 views. FINDINGS: No fracture, dislocation or periosteal reaction. No joint effusion seen. Degenerative thornton ges suspected along the subtalar articulation with some subchondral sclerosis. Mild midfoot degenerat misty changes. No soft tissue abnormality. IMPRESSION: No acute osseous abnormality. Degenerative changes as above.
[2023-12-18 12:13] VITALS: BP 139/83; TEMP 97.6; O2SAT 100
== END 2023-12-18 12:06 | disposition home or self-care (01) ==
LOC: ER 08:19
DX: M25.572 Pain in left ankle and joints of left foot (principal); S82.492S Other fracture of shaft of left fibula, sequela
CPT/HCPCS: 73590; 73610; 96372; 99284; Q0162; J3010

== ENCOUNTER 2024-06-01 02:07 | Emergency (ER) | payer OTHER ==
--- OUTSIDE RECORDS SUMMARY | 2024-06-01 02:11 | XMS REPORT | Clinical Summary ---
Author Name Unknown Organization [facility] Address [address] [place] [address] Care Team Providers Care Cardroom Manager Name Role Phone Kristian Torres MD Unavailable [phone] Evan Lal MD Primary Care Provider [phone] Cristopher Bettencourt MD Unavailable [phone] Enrique Macedo MD Unavailable [phone] Allergies Active Allergy Reactions Criticality Noted [...] her mouth to swell and itching. Medications colesevelam (WELCHOL) 625 mg tablet Take by [...] needed for vomiting or nausea. Active hyoscyamine (ANASPAZ,LEVSIN ) 0.125 mg tablet Take 1 tablet (0.125 mg) by mouth every 6 (six) hours as needed for cramping. Active Active Problems Problem Noted Date Diagnosed Date Renal mass 11/10/2023 Encounters Date Type Department Care Team Description 11/18/2023 8:35 PM CDT Ancillary Procedure Image Library [address] [place] [address] Evan Lal MD Cancer 11/18/2023 8:30 PM CDT Ancillary Procedure Image Library [address] [place] [address] Evan Lal MD Cancer 11/18/2023 8:25 PM CDT Ancillary Procedure Image Library [address] [place] [id number] Evan Lal MD Cancer 11/18/2023 8:20 PM CDT Ancillary Procedure Image Library [address] [place] [address] Evan Lal MD Cancer 11/18/2023 8:15 PM CDT Ancillary Procedure Image Library [address] [place] [address] Evan Lal MD Cancer 11/18/2023 8:10 PM CDT Ancillary Procedure Image Library [address] [place] [address] Evan Lal MD Cancer 11/18/2023 8:05 PM CDT Ancillary Procedure Image Library [address] [place] [address] Evan Lal MD Cancer 11/18/2023 8:00 PM CDT Ancillary Procedure Image Library [address] [place] [address] Evan Lal MD Cancer 11/17/2023 2:30 PM CDT NPR MDA PATIENT ACCESS Evan Lal MD 11/17/2023 1:00 PM CDT Office Visit MD Gil in [address] [id number] Evan Lal MD Renal mass (Primary Dx) 11/17/2023 Travel 10/13/2023 Orders Only MD Gil in [facility] [address] [place] [id number] Berenice Ng PA Renal mass (Primary Dx) after 06/02/2023 Surgical History Surgery Date Site/Laterality Comments TOTAL [...] pur e alcohol) 1 drink a year Comments Unknown Sex and Gender Information Value Date Recorded Sex Assigned at Not on file Legal Sex Female 3:50 PM CDT Gender Identity Not on file Sexual Orientation Not on file Obstetrics History Last Filed [...] Due Date Last Done Comments Pneumococcal Vaccine: 50+ Ye ars (2 of 2 - PPSV23) 12/29/2020 12/30/2019, 03/18/2019 COVID-19 Vaccine (3 - season) 2023, 06/25/2020 Influenza Vaccine (#1) 2023 02/23/2019 Medical Devices Implanted Type Area Leather Cutter Device Identifier Shelf Expiration Date Model / Serial / Lot Metal Description:right total knee replacement Procedures Procedure Name Priority Date/Time Associated Diagnosis Comments OSI US VASCULAR Routine 08/31/2023 7:43 AM CDT Cancer OSI US RENAL Routine 07/27/2023 7:43 AM CDT Cancer after 06/02/2023 Results * OSI US Vascular (08/31/2023 7:43 AM CDT) Narrative Systemgenerated, Documentation - 11/18/2023 7:43 AM CDT Study acquired at another institution. For comparison only. No MD Gil originated interpretation requested or available. Evan Lal MD IMG OUTSIDE IMAGE ORDERABLES Fin al Result * OSI US Renal (07/27/2023 7:43 AM CDT) Narrative Systemgenerated, Documentation - 11/18/2023 7:43 AM CDT Study acquired at another institution. For comparison only. No MD Gil originated interpretation requested or available. Evan Lal MD IMG OUTSIDE IMAGE ORDERABLES Fin al Result after 06/02/2023 Insurance Care Teams Cardroom Manager Relationship Specialty Start Date End Date Kristian Torres MD [address] [place] [id number] [email or web address] PCP - External Primary Care Provider Internal Medicine 09/24/23 Evan Lal MD [address] [place] [id number] [email or web address] PCP - General Urology 09/24/23 Cristopher Bettencourt MD [address] [place] [id number] PCP - External Follow [facility] Rheumatology 09/29/23 Enrique Macedo MD [address] [place] [id number] PCP - External Follow [facility] Urology 09/29/23
--- NOTE | 2024-06-01 04:03 | RAD REPORT ---
EXAM: 1. CT HEAD without IV contrast. 2. CT CERVICAL SPINE without IV contrast. CLINICAL DATA: 73 years Female TRAUMA TECHNICAL DATA: Multiple axial CT images of the brain and cervical spine were performed followed by sagittal and fiona nal reconstructed images. The CT study is performed according to ALARA (as low as reasonably achievable) or ALARA/IMAGE GENTLY, with automatic adjustment of mA and/or kV according to patient siz e. Performed on: 06/01/2024 at 3:27 AM Comparisons: Head CT performed on 09/28/2023. FINDINGS: CT HEAD: There is no evidence of mass, acute mass effect or midline shift. There are no acute extra-axial flui d collections. There is no evidence of acute intracranial hemorrhage. The cerebral sulci and ventricles are normal in size and configuration. There are no focal abnormal areas of increased or decreased attenuation. There is no significant mucosal thickening of the paranasal sinuses. The mastoid air cells are clear. The orbital contents are grossly unremarkable. No acute osseous abnormalities are identified. No focal soft tissue abnormalities are identified. CT CERVICAL SPINE: The cervical vertebrae are normal in height. There is straightening of the normal cervical lordosis w hich may be related to degenerative changes, patient positioning or muscle spasm. There is mild dextrocurvature of the cervical spine which could be positional in nature. There is mild to moderate disc space narrowing at C5-C6 and C6-C7 and there is mild hypertrophic spurring along the vertebral endplates at these levels. There are degenerative cystic changes within the inferior anterior body of C5. Bone mineralization is normal. The atlanto-axial articulation is preserved and the odontoid process is intact. There is normal alignment of the facet joints on the parasagittal images. There are mild to moderate degenerative changes of the facet joints. There is no evidence of acute fracture or subluxation. There is mild C5-C6 canal stenosis secondary t o a disc osteophyte complex. There is multilevel bilateral neural foraminal stenosis secondary to uncovertebral joint and facet joint hypertrophy most pronounced on the left at C3-C4, C4-C5 and C5-C6 . The prevertebral and paraspinal soft tissues are unremarkable. The lung apices are clear. IMPRESSION: CT HEAD: No evidence of acute intracranial pathology. CT CERVICAL SPINE: 1. No evidence of acute cervical spine injury. 2. Straightening of the normal cervical lordosis which may be related to degenerative changes, brenda ent positioning or muscle spasm. 3. Mild to moderate degenerative changes of the cervical spine as described above. Electronically signed by: Asya Guevara DO 06/01/2024 03:58 AM [facility] Due to temporary technical issues with the PACS/[employer] reporting system, reports are being petra d by the in-house radiologist without review as a courtesy to ensure prompt reporting the interpreting radiologist is fully responsible for the content of the report. Transcribed Date/Time: 06/01/2024 4:03 AM
--- NOTE | 2024-06-01 06:40 | RAD REPORT ---
XR PELVIS 1-2 VIEWS INDICATION: Pain COMPARISON: None TECHNIQUE: 1 view of the pelvis FINDINGS: BONES: No acute fracture or malalignment. No suspicious sclerotic or lytic lesion. SOFT TISSUE: Unremarkable. OTHER: Phleboliths over pelvis. IMPRESSION: No acute bony abnormality. Electronically signed by: Yazmin Garcia MD 06/01/2024 06:30 AM [facility] Due to temporary technical issues with the PACS/[employer] reporting system, reports are being petra d by the in-house radiologist without review as a courtesy to ensure prompt reporting the interpreting radiologist is fully responsible for the content of the report. Transcribed Date/Time: 06/01/2024 6:40 AM
--- NOTE | 2024-06-01 06:41 | RAD REPORT ---
XR ANKLE 3 OR MORE VIEWS RIGHT INDICATION: Pain COMPARISON: No prior images are available for comparison at time of interpretation. TECHNIQUE: 4 views of the right ankle FINDINGS: BONES: Mildly displaced medial and distal malleoli. Nondisplaced fracture at posterior malleolus of d istal tibia. Ankle mortise is grossly maintained. Remainder of the visualized osseous structures are intact. Partially visualized plate and screw fixation of first metatarsal. SOFT TISSUE: Moderate ankle soft tissue swelling. OTHER: None. IMPRESSION: Trimalleolar fracture. Electronically signed by: Yazmin Garcia MD 06/01/2024 06:30 AM [facility]3] Due to temporary technical issues with the PACS/[employer] reporting system, reports are being petra d by the in-house radiologist without review as a courtesy to ensure prompt reporting the interpreting radiologist is fully responsible for the content of the report. Transcribed Date/Time: 06/01/2024 6:40 AM
--- NOTE | 2024-06-01 07:07 | ER ---
Nurse's Notes [facility] Name: Linda Miramontes Age: 73 yrs Sex: Female : 1950 Arrival Date: 06/01/2024 Time: 02:07 Bed 7 Private MD: Diagnosis: Mechanical fall;Trimalleolar fracture of right ankle Presentation: 06/01 02:20 Chief complaint: Patient states: PT STATES SHE WAS GOING TO THE BATHROOM AND FELL, br2 GETTING CAUGHT BETWEEN TOLIET AND SINK. PT C/O RIGHT ANKLE PAIN, ARRIVES TO ER WITH EDEMA +3 TO RIGHT ANKLE . DENIES LOC AND IS FALLING ASLEEP DURING TRIAGE. Coronavirus screen: Client denies travel out of the [place] in the last 14 days. Ebola Screen: Patient denies exposure to infectious person. Initial Sepsis Screen: Does the patient meet any 2 criteria? No. Patient's initial sepsis screen is negative. Does the patient have a suspected source of infection? No. Patient's initial sepsis screen is negative. Risk Assessment: Do you want to hurt yourself or someone else? Patient reports no desire to harm self or others. Onset of symptoms was June 01, 2024 at 01:00. 02:20 Method Of Arrival: EMS: [facility] br2 02:20 Acuity: JOBY 3 br2 Triage Assessment: 02:23 General: Appears comfortable, Behavior is drowsy. Pain: Complains of pain in lateral br2 aspect of right foot and medial aspect of right foot Pain does not radiate. Pain currently is 10 out of 10 on a pain scale. Neuro: Dyson Agitation-Sedation Scale (RASS): -1 Drowsy Level of Consciousness is awake, alert, obeys commands, lethargic, Oriented to person, place, time, situation. Respiratory: Airway is patent Respiratory effort is even, unlabored, Respiratory pattern is regular, symmetrical. Musculoskeletal: Reports pain in lateral aspect of right foot and medial aspect of right foot. Historical: - Allergies: 02:23 Bactrim (Facial Swelling); br2 02:23 Codeine; br2 - Immunization history:: Adult Immunizations up to date. - Infectious Disease History:: Denies. - Social history:: Smoking status: Patient denies any tobacco usage or history of. - Family history:: not pertinent. Screenin:[facility] ED Fall Risk Assessment (Adult) History of falling in the last 3 months, lg3 including since admission Yes- single mechanical fall (1 pt) Confusion or Disorientation No (0 pts) Intoxicated or Sedated No (0 pts) Impaired Gait No (0 pts) Mobility Assist Device Used No (0 pt) Altered Elimination No (0 pt) Score/Fall Risk Level 0 - 2 = Low Risk Oriented to surroundings, Maintained a safe environment, Educated pt \T\ family on fall prevention, incl call for assistance when getting out of bed, Assessed \T\ reinforced patient's understanding of fall precautions, Provided non-skid footwear. Abuse screen: Denies threats or abuse. Denies injuries from another. Nutritional screening: No deficits noted. Tuberculosis screening: No symptoms or risk factors identified. Assessment: 02:30 General: Appears in no apparent distress. comfortable, Behavior is drowsy. Pain: lg3 Complains of pain in right ankle. Neuro: Dyson Agitation-Sedation Scale (RASS): -1 Drowsy Oriented to person, place, time, situation. Cardiovascular: No deficits noted. Denies chest pain, shortness of breath, Capillary refill < 3 seconds Clubbing of nail beds is absent JVD is absent Patient's skin is warm and dry. Respiratory: No deficits noted. Airway is patent Respiratory effort is even, unlabored, Respiratory pattern is regular, symmetrical, Denies shortness of breath. GI: No deficits noted. No signs and/or symptoms were reported involving the gastrointestinal system. : No deficits noted. No signs and/or symptoms were reported regarding the genitourinary system. EENT: No deficits noted. No signs and/or symptoms were reported regarding the EENT system. Derm: No deficits noted. No signs and/or symptoms reported regarding the dermatologic system. Skin is intact, is healthy with good turgor, Skin is dry, Skin is normal, Skin temperature is warm. Musculoskeletal: Circulation, motion, and sensation intact. Swelling present in right ankle Reports pain in right ankle. 04:08 Reassessment: Patient appears in no apparent distress at this time. No changes from lg3 previously documented assessment. Patient and/or family updated on plan of care and expected duration. Pain level reassessed. Patient is alert, oriented x 3, equal unlabored respirations, skin warm/dry/pink. 05:41 Reassessment: Patient appears in no apparent distress at this time. No changes from lg3 previously documented assessment. Patient and/or family updated on plan of care and expected duration. Pain level reassessed. Patient is alert, oriented x 3, equal unlabored respirations, skin warm/dry/pink. 07:53 General: Appears in no apparent distress. Behavior is calm, cooperative. Neuro: Level iw of Consciousness is awake, alert, obeys commands, Oriented to. Cardiovascular: Patient's skin is warm and dry. Respiratory: Respiratory effort is even, unlabored, Respiratory pattern is regular, symmetrical. GI: Abdomen is flat. Derm: Skin is intact. Musculoskeletal: Swelling present in right leg and medial aspect of right foot and lateral aspect of right foot. 07:57 Reassessment: attempt to find ride home, contacted at [phone]. iw 08:08 Reassessment: called son at [phone]. iw 09:17 Reassessment: Patient appears in no apparent distress at this time. ride will be here iw at approx 10:00. 09:36 Reassessment: pt assisted to bathroom via wheelchair. iw Vital Signs: 02:20 BP 140 / 65; Pulse 90; Resp 18; Temp 98.5(O); Pulse Ox 97% on R/A; Weight 72.57 kg; br2 Height 5 ft. 3 in. ; Pain 10/10; 04:08 BP 135 / 69; Pulse 79; Resp 16 S; Pulse Ox 97% on R/A; lg3 05:41 BP 156 / 71; Pulse 81; Resp 15 S; Pulse Ox 98% on R/A; lg3 02:20 Body Mass Index 28.34 (72.57 kg, 160.02 cm) br2 02:20 Pain Scale: Adult br2 ED Course: 02:13 Patient arrived in ED. lg3 02:14 Damaso Lux MD is Attending Physician. rt 02:23 Triage completed. br2 02:30 Patient has correct armband on for positive identification. Placed in gown. Bed in low lg3 position. Call light in reach. Side rails up X 1. Client placed on continuous cardiac and pulse oximetry monitoring. NIBP monitoring applied. Door closed. Noise minimized. Warm blanket given. Pillow given. Assisted with bedpan. Cleaned of incontinence. Linen changed. 03:10 Pelvis XRAY In Process Unspecified. EDMS 03:10 Ankle Right 3 View XRAY In Process Unspecified. EDMS 03:18 Geena Sanchez, RN is Primary Nurse. lg3 03:20 CT Head C Spine In Process Unspecified. EDMS 05:41 Cleaned of incontinence. Linen changed. lg3 07:06 Hudson Tenorio MD is Referral Physician. rt 07:43 Crutch training done. Orthoglass splint: Posterior long leg splint applied on right em1 leg. stirrup splint applied on right leg. 09:18 No provider procedures requiring assistance completed. Patient did not have IV access iw during this emergency room visit. 09:37 Primary Nurse role handed off by Geena Sanchez RN iw 09:37 Mandy Velarde, RN is Primary Nurse. iw Administered Medications: No medications were administered Medication: 05:41 VIS not applicable for this client. lg3 Outcome: 07:06 Discharge ordered by . rt 10:00 Patient left the ED. iw Signatures: Dispatcher [employer] EDMandy Shore RN RN iw Chance Brandon em1 Geena Sanchez RN RN lg3 Damaso Lux MD MD rt Kira Coles RN RN br2 Corrections: (The following items were deleted from the chart) 02:24 02:23 PMHx: Hepatitis; br2 br2 02:24 02:23 PMHx: Sepsis; br2 br2 02:24 02:23 PMHx: Hypertension; br2 br2 02:24 02:23 PMHx: Diabetes - NIDDM; br2 br2 02:24 02:23 PMHx: Lupus; br2 br2 02:24 02:23 PMHx: Polio; br2 br2 02:24 02:23 PMHx: Pneumonia; br2 br2 02:24 02:23 PMHx: Sjogrenes; br2 br2 02:24 02:23 PMHx: Raynauds; br2 br2 02:24 02:23 PMHx: Migraines; br2 br2 02:24 02:23 PMHx: Cirrhosis; br2 br2 02:24 02:23 PMHx: GERD; br2 br2 02:24 02:23 PMHx: Crohn's Disease; br2 br2 02:24 02:23 PMHx: Irritable bowel syndrome; br2 br2 02: PMHx: autoimmune hepatitis; br2 br2 02 PSHx: Cholecystectomy; br2 br2
--- NOTE | 2024-06-01 07:07 | EDPHYS ---
Physician Documentation [facility] Name: Linda Miramontes Age: 73 yrs Sex: Female : 1950 Arrival Date: 06/01/2024 Time: 02:07 Bed 7 Private MD: ED Physician Damaso Lux HPI: 06/01 06:05 This 73 yrs old Female presents to ER via EMS with complaints of Fall Injury. rt 06:05 Patient presents to the ED with reported mechanical fall. States that she fell in rt between the wall and the toilet. Denies hitting her head but does report a pain to the right ankle. Denies other injury, other complaints including loss of consciousness. Symptoms are moderate in severity, no other aggravating or alleviating factors.. Historical: - Allergies: 02:23 Bactrim (Facial Swelling); br2 02:23 Codeine; br2 - Immunization history:: Adult Immunizations up to date. - Infectious Disease History:: Denies. - Social history:: Smoking status: Patient denies any tobacco usage or history of. - Family history:: not pertinent. ROS: 06:05 Constitutional: Negative for fever, chills, and weight loss, Cardiovascular: Negative rt for chest pain, palpitations, and edema, Respiratory: Negative for shortness of breath, cough, wheezing, and pleuritic chest pain, Abdomen/GI: Negative for abdominal pain, nausea, vomiting, diarrhea, and constipation, Skin: Negative for injury, rash, and discoloration, Neuro: Negative for headache, weakness, numbness, tingling, and seizure, 06:05 MS/extremity: Positive for pain, swelling, Exam: 06:11 Constitutional: This is a well developed, well nourished patient who is awake, alert, rt and in no acute distress. Head/Face: Normocephalic, atraumatic. Chest/axilla: Normal chest wall appearance and motion. Nontender with no deformity. No lesions are appreciated. Cardiovascular: Regular rate and rhythm with a normal S1 and S2. No gallops, murmurs, or rubs. Normal PMI, no JVD. No pulse deficits. Respiratory: Lungs have equal breath sounds bilaterally, clear to auscultation and percussion. No rales, rhonchi or wheezes noted. No increased work of breathing, no retractions or nasal flaring. Abdomen/GI: Soft, non-tender, with normal bowel sounds. No distension or tympany. No guarding or rebound. No evidence of tenderness throughout. 06:11 Musculoskeletal/extremity: Swelling noted to the right lateral and medial malleoli, tenderness at that area, pulses, motor, sensation intact. Vital Signs: 02:20 BP 140 / 65; Pulse 90; Resp 18; Temp 98.5(O); Pulse Ox 97% on R/A; Weight 72.57 kg; br2 Height 5 ft. 3 in. ; Pain 10/10; 04:08 BP 135 / 69; Pulse 79; Resp 16 S; Pulse Ox 97% on R/A; lg3 05:41 BP 156 / 71; Pulse 81; Resp 15 S; Pulse Ox 98% on R/A; lg3 02:20 Body Mass Index 28.34 (72.57 kg, 160.02 cm) br2 02:20 Pain Scale: Adult br2 MDM: 02:14 Medical Screening Exam initiated rt 07:07 Differential diagnosis: Fracture, intracranial hemorrhage, sprain. Data reviewed: vital rt signs, nurses notes, radiologic studies. Consideration of Admission/Observation Escalation of care including admission/observation considered. I discussed with the patient my concerns for her mobility, potential safety issues at home. Patient states that she does not believe there are safety issues at home, that she has a home health nurse that can come out to help. I did offer the patient admission to the hospital for physical therapy, rehab, potential placement, she states that she is not interested in this, strongly wishes to go home, she is instructed to follow-up as an outpatient and that she may return at any time if she changes her mind or has a worsening of her condition.. Independent interpretation of the following test(s) in the Emergency Department X-Ray: My interpretation is Trimalleolar fracture seen on interpretation of x-ray images. Counseling: I had a detailed discussion with the patient and/or guardian regarding the historical points, exam findings, and any diagnostic results supporting the discharge/admit diagnosis, radiology results, the need for outpatient follow up, to return to the emergency department if symptoms worsen or persist or if there are any questions or concerns that arise at home. Response to treatment: the patient's symptoms have markedly improved after treatment. 06/01 02:24 Order name: CT Head C Spine; Complete Time: 09:41 rt 06/01 02:24 Order name: Pelvis XRAY; Complete Time: 09:41 rt 06/01 02:24 Order name: Ankle Right 3 View XRAY; Complete Time: 09:41 rt 06/01 06:43 Order name: Splint - Long Leg: Posterior w/ Stirrup; Complete Time: 07:36 rt 06/01 06:43 Order name: Crutches; Complete Time: 07:50 rt Administered Medications: No medications were administered Disposition Summary: 06/01/24 07:06 Discharge Ordered Notes: Location: Home rt Problem: new rt Symptoms: have improved rt Condition: Stable rt Diagnosis - Mechanical fall rt - Trimalleolar fracture of right ankle rt Followup: rt - With: Hudson Tenorio MD - When: 2 - 3 days - Reason: Discharge Instructions: - Discharge Summary Sheet rt - Ankle Fracture rt Forms: - Medication Reconciliation Form rt - Antibiotic Education rt - Prescription Opioid Use rt - Patient Portal Instructions rt - Leadership Thank You Letter rt Signatures: Dispatcher [employer] EDKlaus Drew MD MD cha [place], Ryan, MD MD rt Kira Coles, RN RN br2 Corrections: (The following items were deleted from the chart) 02:24 02:23 PMHx: Hepatitis; br2 br2 02:24 02:23 PMHx: Sepsis; br2 br2 02:24 02:23 PMHx: Hypertension; br2 br2 02:24 02:23 PMHx: Diabetes - NIDDM; br2 br2 02:24 02:23 PMHx: Lupus; br2 br2 02:24 02:23 PMHx: Polio; br2 br2 02:24 02:23 PMHx: Pneumonia; br2 br2 02:24 02:23 PMHx: Sjogrenes; br2 br2 02:24 02:23 PMHx: Raynauds; br2 br2 02:24 02:23 PMHx: Migraines; br2 br2 02:24 02:23 PMHx: Cirrhosis; br2 br2 02:24 02:23 PMHx: GERD; br2 br2 02:24 02:23 PMHx: Crohn's Disease; br2 br2 02:24 02: PMHx: Irritable bowel syndrome; br2 br2 02: PMHx: autoimmune hepatitis; br2 br2 02 PSHx: Cholecystectomy; br2 br2
[2024-06-01 10:05] VITALS: TEMP 98.5
[2024-06-01 10:07] VITALS: BP 156/71; O2SAT 98
== END 2024-06-01 10:00 | disposition home or self-care (01) ==
LOC: ER 02:07
PROC: 2W3QX1Z Immobilization of Right Lower Leg using Splint (ICD-10-PCS; principal; 2024-06-01)
DX: S82.851A Displaced trimalleolar fracture of right lower leg, initial encounter for closed fracture (principal); W18.30XA Fall on same level, unspecified, initial encounter
CPT/HCPCS: 70450; 72125; 72170; 99284

== ENCOUNTER 2025-02-22 09:33 | Emergency (ER) | payer OTHER ==
[2025-02-22 10:49] LABS: Urine Microscopic Reflex YN NO UMIC
[2025-02-22 10:50] LABS: ALT/SGPT 29.0 U/L (13-56); AST/SGOT 32.0 U/L (15-37); Albumin 3.1 g/dL (3.4-5.0); Albumin/Globulin Ratio 0.7 (1.1-1.8); Alkaline Phosphatase 234.0 U/L (45-117); Anion Gap 11.0 mEq/L (5.0-15.0); BUN Blood Urea Nitrogen 10.0 mg/dL (7-18); Globulin 4.2 g/dL (2.3-3.5); Glucose Level 102.0 mg/dL (74-106); Potassium 4.0 mEq/L (3.5-5.1)
[2025-02-22 11:10] LABS: Absolute Lymphocytes (CBC) 0.6 K/uL (0.7-4.9); Hematocrit 36.9 % (36.0-45.0); Hemoglobin 12.3 g/dL (12.0-15.0); MCH 27.6 pg (27.0-35.0); MCHC 33.3 g/dL (32.0-36.0); MCV 82.8 fL (80-100); MPV 7.4 fL (7.6-11.3); Nucleated RBC Absolute Count 0.0 (0-0); Nucleated Red Blood Cells % 0.0 % (0-0); RBC Red Blood Cell Count 4.45 M/uL (3.86-4.86); White Blood Count 4.30 thou/uL (4.3-10.9)
--- NOTE | 2025-02-22 11:41 | RAD REPORT ---
EXAMINATION: Abdomen Pelvis W Contrast CLINICAL INDICATION: Female, 74 years old.ABD PAIN TECHNIQUE: CT abdomen and pelvis was performed, after the administration of IV contrast, as [facility]. Axial, sagittal and coronal reconstructions were obtained. One or more of the following dose reduction techniques were used: Automated exposure control, adjustment of the mA and/o r kV according to patient size, and/or iterative reconstruction. Unless otherwise specified, incidental findings do not require dedicated imaging follow-up. [id number]. COMPARISON: 09/24/2023 FINDINGS: LOWER CHEST: No acute process identified. No significant pericardial effusion. Aortic valve and [place] l annular calcifications. UPPER GI: No significant abnormality. LIVER: No significant focal abnormality. GALLBLADDER/BILE DUCTS: No biliary ductal dilatation.? PANCREAS: No mass, ductal dilation, or katrina-pancreatic fluid. SPLEEN: Unremarkable. ADRENALS: No adrenal masses. KIDNEYS AND URETERS: No hydronephrosis. No suspicious renal mass. Not obstructing 4 mm stone in the l ower pole left kidney. Partial left nephrectomy versus prior ablation without residual lesion.. ABDOMINAL AORTA AND OTHER VESSELS: Normal caliber aorta and IVC. PERITONEUM: No abnormal free fluid. No free air. LYMPH NODES: No pathologic lymphadenopathy. ABDOMINAL WALL: Unremarkable SMALL BOWEL/COLON: Small bowel has normal course and caliber. No colonic wall thickening or pericolon ic inflammatory changes. Normal appendix. Mild diverticulosis without diverticulitis. URINARY BLADDER: Underdistended but grossly unremarkable. REPRODUCTIVE ORGANS: No pathologic process. MUSCULOSKELETAL: T12 kyphoplasty. Remote appearing L1, L3, and L4 compression fractures. Grade 1 ante rolisthesis of L5 on S1 with bilateral pars defects. ADDITIONAL FINDINGS: None. IMPRESSION: No acute findings within the abdomen or pelvis. Nonobstructive left nephrolithiasis.
--- NOTE | 2025-02-22 11:54 | ER ---
Nurse's Notes [facility] Name: Linda Miramontes Age: 74 yrs Sex: Female : 1950 Arrival Date: 02/22/2025 Time: 09:33 Bed 5 Private MD: Diagnosis: Calculus of ureter Presentation: 02/22 09:45 Chief complaint: Patient states: Seeing Dr. Torres for UTI. Pain is significantly worse ll1 now. Coronavirus screen: Client denies travel out of the [place] in the last 14 days. At this time, the client does not indicate any symptoms associated with coronavirus-19. Ebola Screen: Patient denies travel to an Ebola-affected area in the 21 days before illness onset. Initial Sepsis Screen: Does the patient meet any 2 criteria? No. Patient's initial sepsis screen is negative. Does the patient have a suspected source of infection? No. Patient's initial sepsis screen is negative. Risk Assessment: Do you want to hurt yourself or someone else? Patient reports no desire to harm self or others. Onset of symptoms was February 16, 2025. 09:45 Method Of Arrival: Ambulatory ll1 09:45 Acuity: JOBY 3 ll1 Historical: - Allergies: 09:40 Bactrim (Facial Swelling); ll1 09:40 Codeine; ll1 - PMHx: 09:40 Hypertensive disorder; Diabetes mellitus; ll1 - Immunization history:: Adult Immunizations up to date. - Infectious Disease History:: Denies. - Social history:: Smoking status: Patient denies any tobacco usage or history of. Screenin:03 [facility] ED Fall Risk Assessment (Adult) History of falling in the last 3 months, kb4 including since admission No falls in past 3 months (0 pts) Confusion or Disorientation No (0 pts) Intoxicated or Sedated No (0 pts) Impaired Gait No (0 pts) Mobility Assist Device Used No (0 pt) Altered Elimination No (0 pt) Score/Fall Risk Level 0 - 2 = Low Risk. Abuse screen: Denies threats or abuse. Denies injuries from another. Nutritional screening: No deficits noted. Tuberculosis screening: No symptoms or risk factors identified. Assessment: 10:02 General: Appears in no apparent distress. comfortable, Behavior is calm, cooperative. kb4 Pain:. Neuro: Level of Consciousness is awake, alert, obeys commands, Oriented to person, place, time, situation. Cardiovascular: Patient's skin is warm and dry. Respiratory: Airway is patent Respiratory effort is even, unlabored, Respiratory pattern is regular, symmetrical. Derm: Skin is pink, warm \T\ dry. 12:30 Reassessment: Patient and/or family updated on plan of care and expected duration. Pain kb4 level reassessed. Patient is alert, oriented x 3, equal unlabored respirations, skin warm/dry/pink. Vital Signs: 09:45 BP 139 / 83; Pulse 77; Resp 17; Pulse Ox 97% on R/A; Weight 73.03 kg; Height 5 ft. 5 ll1 in. ; Pain 10/10; 12:30 BP 135 / 71; Pulse 76; Resp 16; Pulse Ox 98% on R/A; kb4 09:45 Body Mass Index 26.79 (73.03 kg, 165.1 cm) ll1 09:45 Pain Scale: Adult ll1 ED Course: 09:37 Patient arrived in ED. cj3 09:39 Remi Alegria FNP-C is PHCP. dr5 09:39 Roger Esquivel MD is Attending Physician. dr5 09:40 Arm band placed on Patient placed in an exam room, on a stretcher. ll1 09:41 Ruthie Perea, RN is Primary Nurse. kb4 09:46 Triage completed. ll1 10:03 Patient has correct armband on for positive identification. kb4 10:04 No provider procedures requiring assistance completed. kb4 10:08 Missed attempt(s): 22 gauge in left forearm. Bleeding controlled, band aid applied, aa5 catheter tip intact. 10:10 Missed attempt(s): 22 gauge in right forearm. Bleeding controlled, band aid applied, aa5 catheter tip intact. 10:10 Initial lab(s) drawn, by me, sent to lab. aa5 10:21 Missed attempt(s): 20 gauge in right forearm. antecubital area. kb4 10:55 Accessed peripheral vein via ultrasound, utilizing dynamic ultrasound technique using hb per hospital protocol. Clean \T\ dry. Dressing intact. Good blood return. Flushes easily. 20g RFA. 11:09 CT Abd/Pelvis - IV Contrast Only In Process Unspecified. EDMS 12:31 IV discontinued, intact, bleeding controlled, No redness/swelling at site. Pressure kb4 dressing applied. 12:32 Provided Education on: d/c . kb4 Administered Medications: 12:29 Drug: morphine IVP or IV 4 mg IVP once over 4 mins Route: IVP; Infused Over: 4 mins; kb4 Site: right antecubital; 12:29 Follow up: Response: Medication administered at discharge. kb4 12:29 Drug: Ondansetron IVP 4 mg IVP once; over 2 minutes Route: IVP; Site: right antecubital;kb4 12:29 Follow up: Response: Medication administered at discharge. kb4 Medication: 10:04 VIS not applicable for this client. kb4 Outcome: 11:53 Discharge ordered by MD. dr5 12:31 Discharged to home ambulatory, kb4 12:31 Condition: good 12:31 Discharge instructions given to patient, family, Instructed on discharge instructions, follow up and referral plans. medication usage, Demonstrated understanding of instructions, follow-up care, medications, Prescriptions given X 2, 12:32 Patient left the ED. kb4 Signatures: Dispatcher [employer] EDMS Madison Gregory RN RN aa5 Ada Rivero RN RN Elena Reina RN RN ll1 Remi Alegria, MILK TREATER-C MILK TREATER-Cdr5 Ruthie Perea RN RN kb4 Lida Fisher cj3 Corrections: (The following items were deleted from the chart) 09:46 09:45 Resp 17bpm; 73.03 kg; Height 5 ft. 5 in.; BMI: 26.7; Pain 02/01, Adult; ll1 ll1
--- NOTE | 2025-02-22 11:54 | EDPHYS ---
Physician Documentation [facility] Name: Linda Miramontes Age: 74 yrs Sex: Female : 1950 Arrival Date: 02/22/2025 Time: 09:33 Bed 5 Private MD: ED Physician Roger Esquivel HPI: 02/22 09:47 This 74 yrs old Female presents to ER via Ambulatory with complaints of UTI, dr5 SENT BY JOLANTA. 09:47 Onset: The symptoms/episode began/occurred 3 day(s) ago. Patient is a 74-year-old dr5 female with history of hypertension and diabetes coming in with dysuria that is been going on for the past 3 days. Patient reports she started ciprofloxacin on Tuesday with no relief of symptoms. Patient reports she called Dr. Torres this morning who recommended her come in to the ER for further management. Patient does not have culture results from recent urine collected.. Historical: - Allergies: 09:40 Bactrim (Facial Swelling); ll1 09:40 Codeine; ll1 - PMHx: 09:40 Hypertensive disorder; Diabetes mellitus; ll1 - Immunization history:: Adult Immunizations up to date. - Infectious Disease History:: Denies. - Social history:: Smoking status: Patient denies any tobacco usage or history of. ROS: 09:47 Constitutional: as per hpi dr5 Exam: 09:47 Constitutional: This is a well developed, well nourished patient who is awake, alert, dr5 and in no acute distress. Head/Face: Normocephalic, atraumatic. Eyes: Pupils equal round and reactive to light, extra-ocular motions intact. Lids and lashes normal. Conjunctiva and sclera are non-icteric and not injected. Cornea within normal limits. Periorbital areas with no swelling, redness, or edema. Chest/axilla: Normal chest wall appearance and motion. Nontender with no deformity. No lesions are appreciated. Cardiovascular: Regular rate and rhythm with a normal S1 and S2. Normal PMI, no JVD. No pulse deficits. Respiratory: Lungs have equal breath sounds bilaterally, clear to auscultation. No rales, rhonchi or wheezes noted. No increased work of breathing, no retractions or nasal flaring. Abdomen/GI: Soft, non-tender, non-distended Back: No spinal tenderness. No costovertebral tenderness. Full range of motion. Skin: Warm, dry with normal turgor. Normal color with no rashes, no lesions, and no evidence of cellulitis. MS/ Extremity: Pulses equal, no cyanosis. Neurovascular intact. Full, normal range of motion. Neuro: Awake and alert, GCS 15, oriented to person, place, time, and situation. Cranial nerves II-XII grossly intact. Motor strength 5/5 in all extremities. Sensory grossly intact. Cerebellar exam normal. Normal gait. Vital Signs: 09:45 BP 139 / 83; Pulse 77; Resp 17; Pulse Ox 97% on R/A; Weight 73.03 kg; Height 5 ft. 5 ll1 in. ; Pain 10/10; 12:30 BP 135 / 71; Pulse 76; Resp 16; Pulse Ox 98% on R/A; kb4 09:45 Body Mass Index 26.79 (73.03 kg, 165.1 cm) ll1 09:45 Pain Scale: Adult ll1 MDM: 09:39 Medical Screening Exam initiated dr5 11:57 Differential diagnosis: viral Infection, bacterial infection, URI, UTI, dr5 Nephrolithiasis. Data reviewed: vital signs, nurses notes, lab test result(s), CBC, white blood cell count, hemoglobin, hematocrit, platelets, electrolytes, sodium, potassium, chloride, serum bicarbonate, BUN, creatinine, serum glucose, urinalysis, radiologic studies, CT scan. Consideration of Admission/Observation Escalation of care including admission/observation considered. Escalation considered patient found to have urinary tract infection or nephrolithiasis causing hydronephrosis. I considered the following discharge prescriptions or medication management in the emergency department I discussed and recommended Over The Counter medications, Medications were administered in the Emergency Department. See MAR. Historians other than the Patient: Daughter/Son: Daughter. Care significantly affected by the following chronic conditions: Diabetes, Hypertension. Care significantly affected by the following Social Determinants of Health: Poor access to healthcare and/or lack of insurance, Poor access to transportation, Problems related to employment. Counseling: I had a detailed discussion with the patient and/or guardian regarding the historical points, exam findings, and any diagnostic results supporting the discharge/admit diagnosis, the presence of at least one elevated blood pressure reading (>120/80) during this emergency department visit, lab results, radiology results, the need for outpatient follow up, for definitive care, a family practitioner, to return to the emergency department if symptoms worsen or persist or if there are any questions or concerns that arise at home. Medication response: Response to treatment: the patient's symptoms have markedly improved after treatment. Special discussion: I discussed with the patient/guardian in detail that at this point there is no indication for admission to the hospital. It is understood, however, that if the symptoms persist or worsen the patient needs to return immediately for re-evaluation. Based on the history and exam findings, there is no indication for further emergent testing or inpatient evaluation. I discussed with the patient/guardian the need to see the primary care provider for further evaluation of the symptoms. ED course: All labs and CAT scans were printed and given to patient. Will start patient on tamsulosin. All questions answered. Will have patient follow with Dr. Torres next week.. 02/22 09:46 Order name: CBC with Diff; Complete Time: 11:14 dr5 02/22 09:46 Order name: CMP; Complete Time: 10:54 dr5 02/22 09:46 Order name: UA Rfx Jose Martin Cult if indicated; Complete Time: 10:54 dr5 02/22 10:01 Order name: CT Abd/Pelvis - IV Contrast Only; Complete Time: 11:48 dr5 02/22 10:02 Order name: IV Saline Lock; Complete Time: 10:19 dr5 02/22 10:02 Order name: Labs collected and sent; Complete Time: 10:11 dr5 02/22 10:23 Order name: Labs - recollect needed: please recollect purple top; Complete Time: 11:25 em1 Administered Medications: 12:29 Drug: morphine IVP or IV 4 mg IVP once over 4 mins Route: IVP; Infused Over: 4 mins; kb4 Site: right antecubital; 12:29 Follow up: Response: Medication administered at discharge. kb4 12:29 Drug: Ondansetron IVP 4 mg IVP once; over 2 minutes Route: IVP; Site: right antecubital;kb4 12:29 Follow up: Response: Medication administered at discharge. kb4 Disposition: 13:45 Co-signature as Attending Physician, Roger Esquivel MD I reviewed the patient's care rn provided by the Advanced Practice Provider and agree with the diagnosis and treatment plan. Disposition Summary: 02/22/25 11:53 Discharge Ordered Notes: Location: Home dr5 Condition: Stable dr5 Diagnosis - Calculus of ureter dr5 Followup: dr5 - With: Emergency Department - When: As needed - Reason: Worsening of condition Followup: dr5 - With: Private Physician - When: 1 - 2 days - Reason: Recheck today's complaints, Continuance of care, Re-evaluation by your physician Discharge Instructions: - Discharge Summary Sheet dr5 - Kidney Stones dr5 Forms: - Medication Reconciliation Form dr5 - Prescription Opioid Use dr5 - Patient Portal Instructions dr5 - Leadership Thank You Letter dr5 Prescriptions: - tamsulosin 0.4 mg Oral capsule - take 1 capsule ORAL route daily; 30 capsule; Refills: 0, Product Selection dr5 Permitted - Tramadol 50 mg Oral Tablet - take 1 tablet ORAL route every 8 hours as needed; 12 tablet; Refills: 0, dr5 Product Selection Permitted Signatures: Dispatcher [employer] EDMS Roger Esquivel MD MD rn Martinez, Chance em1 Elena Sanches RN RN ll1 Remi Alegria, AREA MANAGER-C AREA MANAGER-Cdr5 Ruthie Perea RN RN kb4 Corrections: (The following items were deleted from the chart) 09:46 09:46 CBC+H.LAB.BRZ ordered. EDMS EDMS 09:46 09:46 COMPREHENSIVE METABOLIC PANEL+C.LAB.BRZ ordered. EDMS EDMS 09:46 09:46 UA Rfx Jose Martin Cult if indicated+U.LAB.BRZ ordered. EDMS EDMS 10:02 10:02 Abdomen Pelvis W Con+CT.RAD.BRZ ordered. EDMS EDMS
[2025-02-22] MEDS ORDERED: ONDANSETRON 4 MG/2 ML VIAL ONE (12:20)
[2025-02-22] MEDS ORDERED: MORPHINE 2 MG/ML SYR ONE (12:20)
[2025-02-22 12:37] VITALS: BP 135/71; O2SAT 98
== END 2025-02-22 12:32 | disposition home or self-care (01) ==
LOC: ER 09:33
DX: N20.1 Calculus of ureter (principal)
CPT/HCPCS: 85025; 36415; 81003; 80053; 74177; 96375; 96374; 99284; Q9967; J2270; J2405